=== PATIENT | female | born 1965 | race Caucasian/White ===

== ENCOUNTER 2016-11-14 19:25 | Observation (INO) ==
[2016-11-14] MEDS ORDERED: Furosemide 40 MG/4 ML VIAL IVP ONE (20:47)
--- NOTE | 2016-11-14 20:54 | Emergency Department Note ---
Disposition Clinical Impression: Hypokalemia Acute exacerbation of CHF (congestive heart failure) Qualifiers: Congestive heart failure type: unspecified congestive heart failure type Qualified Code(s): I50.9 - Heart failure, unspecified Disposition: Admitted As Inpatient Condition: Fair Referrals: Iliana Almaguer MD [Primary Care Provider] - Forms: ED Satisfaction Letter Time of Disposition: 22:51 SOB HPI - General Chief Complaint: ED Shortness of Breath/Dyspnea Stated Complaint: ascites Time Seen by Provider: 11/14/16 19:40 Source: patient Limitations: no limitations Nursing Notes Reviewed: Yes Vital Signs Reviewed: Yes - History of Present Illness 51-year-old female with history of CHF, previously on oxygen but has not been able to get lately. Persistence with shortness of breath, abdominal swelling, bilateral lower extremity swelling. Patient's abdominal swelling and lower extremity swelling has been worse. Patient has been taking Lasix 40 mg 3 times a day with resolution of her symptoms. In approximately 15-20 pounds last few days, most with on her abdomen. She denies abdominal pain or chest pain but feels short of breath with minimal exertion, she has orthopnea and her and exertional dyspnea denies fevers chills or unilateral swelling. Pt Subjective Complaint: shortness of breath Onset (ago): week(s) (3) Severity: moderate Worsens with: lying flat, exertion, movement, coughing Known history of: congestive heart failure Associated symptoms: Reports: orthopnea. Denies: pain with inspiration, sputum production Treatment prior to arrival: none Cough present: Yes Cough Description: Voluntary Sputum Amount: None - Related Data Home Medications Medication Instructions Recorded Confirmed Aspirin Enteric Coated [Aspirin EC] 81 mg PO DAILY 06/30/15 08/21/16 Atorvastatin Calcium [Lipitor] 80 mg PO DAILY 06/30/15 08/21/16 Budesonide/Formoterol 160/4.5 2 puff IH BID 06/30/15 08/21/16 [Symbicort] Fluticasone Propionate Nasal 1 spray NS DAILY 06/30/15 08/21/16 [Flonase] Insulin ASPART [NovoLOG] 20 unit SQ TIDWM 06/30/15 08/21/16 Insulin DETEMIR [Levemir] 120 unit SQ BID 06/30/15 08/21/16 Montelukast [Singulair] 10 mg PO DAILY 06/30/15 08/21/16 Pregabalin [Lyrica] 100 mg PO TID 06/30/15 08/21/16 Tiotropium [Spiriva] 18 mcg IH DAILY 06/30/15 08/21/16 Citalopram [CeleXA] 20 mg PO DAILY 08/09/15 08/21/16 Nitroglycerin [Nitrostat] 0.4 mg SL AD PRN 08/09/15 08/21/16 Acetaminophen [Tylenol Arthritis] 650 mg PO Q6H PRN 04/17/16 08/21/16 Albuterol Neb [Proventil Neb] 2.5 mg IH TID 04/17/16 08/21/16 Albuterol Sulfate [Albuterol 2 puff IH Q4H PRN 04/17/16 08/21/16 Inhaler] Loratadine [Claritin] 10 mg PO DAILY 04/17/16 08/21/16 Metformin HCl [Metformin HCl ER] 1,000 mg PO BID 04/17/16 08/21/16 Metoprolol [Lopressor] 25 mg PO BID 04/17/16 08/21/16 Oxygen 3 l NS AD 04/17/16 08/21/16 Pantoprazole Sodium [Protonix] 40 mg PO DAILY 04/17/16 08/21/16 Potassium Chloride [K-Tab ER] 20 meq PO DAILY 04/17/16 08/21/16 Lipase/Protease/Amylase [Rober Hernández 0.5 each PO TID MDD With Snacks 08/21/1608/27 40,000 Units Capsule] Lipase/Protease/Amylase [Rober Hernández 1 each PO TIDWM 08/21/16 08/21/16 40,000 Units Capsule] Losartan Potassium [Cozaar] 50 mg PO DAILY 08/21/16 08/21/16 Oxybutynin Chloride [Ditropan Xl] 10 mg PO DAILY 08/21/16 08/21/16 SUMAtriptan [Imitrex] 50 mg PO AD PRN 08/21/16 08/21/16 Previous Rx's Medication Instructions Recorded Ondansetron ODT [Zofran ODT] 4 mg SL Q6HR PRN #20 tab.rapdis 05/29/16 Azithromycin [Zithromax] 250 mg PO DAILY #4 tablet 10/11/16 Furosemide [Lasix] 40 mg PO DAILY 30 Days 08/22/16 Allergies Allergy/AdvReac Type Severity Reaction Status Date / Time estrogens, conjugated AdvReac Anxiety Verified 08/21/16 12:58 [From Premarin] hydrocodone [From Vicodin] AdvReac Anxiety Verified 08/21/16 12:58 metronidazole [From Flagyl] AdvReac Anxiety Verified 08/21/16 12:58 Tetracycline AdvReac Anxiety Verified 08/21/16 12:58 tramadol [From Ultram] AdvReac Anxiety Verified 08/21/16 12:58 Review of Systems: A 14 point ROS was obtained and was negative except as per below or as documented in the HPI. Constitutional: Denies: fever, chills, weakness, weight change Eyes: Denies: eye pain, eye discharge, vision change ENT: Denies: ear pain, throat pain, hearing loss, epistaxis, congestion, Cardiovascular: Denies: chest pain, palpitations, dyspnea on exertion, edema, syncope Respiratory: dyspnea Denies: cough, , wheezes, hemoptysis, stridor Gastrointestinal: +abdominal pain swelling Denies: , nausea, vomiting. diarrhea , constipation, hematemesis, hematochezia Genitourinary: Denies: urgency, dysuria, frequency, hematuria Musculoskeletal: Denies: back pain, neck pain, arthralgia, myalgia Integumentary: Denies: rash, abrasion, lesions Neurological: Denies: headache, weakness, numbness, paresthesias, confusion, abnormal gait Psychiatric: Denies: anxiety, depression, suicidal thoughts, homicidal thoughts , Endocrine: Denies: fatigue Hematological/Lymphatic: Denies: easy bleeding, easy bruising Allergic/Immunologic: Denies: facial swelling, urticaria All systems ED: reviewed and negative except as stated. Past Medical History - Past Medical History Attestation: Yes The following information was validated with the patient. 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 - Social History Smoking Status: Current every day smoker Smokeless Tobacco Status: No Alcohol use: Reports: none Drug use: Reports: none Physical Exam General: alert and oriented, in NAD, appears stated age, is pleasant and cooperative to exam Head: NCAT, no lesions Eyes: sclera anicteric, conjunctiva normal, PERRLA bilaterally, EOMI Bilaterally Ears: normal inspection, external ear wnl Nose: nasal septum nondeviated, sinuses nontender Throat: good dentition, mucous membranes moist Neck: no lymphadenopathy, trachea midline no deviation, no JVD Resp: Bilateral rales appreciated bases in the midlung yip. CV: RRR, normal S1 and S2, no m/g/r, Pulses +2 Rad, +2 DP/PT Abdomen: Moderate to severe distention in the abdomen. no hepatosplenomegaly, no hernias, Negative Rovsing's sign, Negative An's sign Back: normal inspection, no tenderness to palpation, Negative CVA tenderness bilaterally Neuro: A&O3, CN II-XII grossly intact bilaterally, no motor or sensory deficits bilaterally, gait normal, GCS 15 [id number] Ext: normal inspection, symmetric Active and Passive ROM UE and LE bilaterally, +3. Edema bilaterally Psych: normal mood, normal affect Skin: No rashes, skin warm, dry, intact - General Limitations: no limitations General appearance: alert, in no apparent distress Course Course Narrative: 51-year-old with history of CHF appears to be in anasarca, bilateral lower extremity pedal edema, diffuse rails, we will diuresis with IV Lasix, basic lab work. - Reevaluation(s) Reevaluation #1: Patient with hypokalemia, and CHF exacerbation. This in service for diuresis, Time: 22:50 Vital Signs Temperature 98.2 F 11/14/16 20:28 Pulse Rate 75 11/14/16 20:28 Respiratory Rate 20 11/14/16 20:28 Blood Pressure 139/79 11/14/16 20:28 O2 Sat by Pulse Oximetry 88 L 11/14/16 20:28 Temperature 98.2 F 11/14/16 20:28 Pulse Rate 75 11/14/16 20:28 Respiratory Rate 20 11/14/16 20:28 Blood Pressure 139/79 11/14/16 20:28 O2 Sat by Pulse Oximetry 96 11/14/16 20:35 Oxygen Delivery Oxygen Delivery Room Air Shortness of Breath/Dyspnea - MDM Narrative Medical decision making narrative: 51-year-old female with CHF exacerbation, requiring oxygen in the emergency department, admitted to medicine service for diuresis, and further workup - Differential Diagnosis Likely: acute exacerbation of chronic obstructive airways disease, congestive heart failure, pulmonary embolism - Medical Records Medical records reviewed: Yes I reviewed the patient's medical records. - Lab Data Lab results reviewed: Yes I reviewed the patient's lab results. Result diagrams: 11/14/16 21:23 11/14/16 21:23 Lab Results 11/14/16 11/14/16 11/14/16 Range/Units 21:23 21:23 21:23 WBC 10.5 (4.3-11.1) K/mcL RBC 5.95 H (3.82-4.97) M/mcL Hgb 14.4 (11.5-15.4) g/dL Hct 46.2 H (35.3-44.9) % MCV 77.6 L (83.0-100.0) fL MCH 24.2 L (28.0-33.3) pg MCHC 31.2 L (31.6-35.5) g/dL RDW 20.6 H (11.5-14.5) % Plt Count 231 (140-400) K/mcL MPV 11.1 (9.4-12.4) fL Immature Gran % 0.5 (0-4) % Seg Neutrophils % 77.9 % Lymphocytes % 11.7 % Monocytes % 8.5 % Eosinophils % 0.9 % Basophils % 0.5 % Neutrophils # 8.2 (1.6-8.9) K/mcL Lymphocytes # 1.2 (0.6-4.6) K/mcL Monocytes # 0.9 (0.0-1.3) K/mcL Eosinophils # 0.1 (0.0-0.6) K/mcL Basophils # 0.1 (0.0-0.2) K/mcL Nucleated RBCs/100 WBC 0.2 H (0) /100 WBC Immature Plt Fraction 7.6 H (1.1-6.1) % Sodium 138 (136-145) mEq/L Potassium 2.8 L (3.5-4.5) mEq/L Chloride 98 (98-109) mEq/L Carbon Dioxide 31 H (19-29) mEq/L BUN 15 (7-20) mg/dL Creatinine 0.77 (0.57-1.11) mg/dL Est GFR ( Amer) > 60 (> 60) Est GFR (Non-Af Amer) > 60 (> 60) BUN/Creatinine Ratio 19 (6-26) Glucose 213 H (70-99) mg/dL Calculated Osmolality 293 (280-300) Calcium 8.3 L (8.6-10.8) mg/dL Total Bilirubin (0.2-1.2) mg/dL Direct Bilirubin (0.0-0.5) mg/dL Indirect Bilirubin (0.0-1.2) mg/dL AST (5-34) Units/L ALT (0-55) Units/L Alkaline Phosphatase (38-126) Units/L Troponin I 0.00 (0-0.03) ng/mL B-Natriuretic Peptide (0-100) pg/mL Serum Total Protein (6.0-8.3) g/dL Albumin (3.5-5.0) g/dL Globulin (2.4-3.5) g/dL Albumin/Globulin Ratio (1.1-2.2) Lipase (8-78) Units/L Urine Color (Yellow) Urine Clarity (Clear) Urine pH (5.0-8.0) pH Units Ur Specific [place] (1.010-1.025) Urine Protein (Neg-Trace) mg/dL Urine Glucose (UA) (Normal) mg/dL Urine Ketones (Negative) mg/dL Urine Blood (Negative) Urine Nitrite (Negative) Urine Bilirubin (Negative) Urine Urobilinogen (Normal) mg/dL Ur Leukocyte Esterase (Negative) Ur Culture Indicated? (NO) 11/14/16 11/14/16 11/14/16 Range/Units 21:23 21:23 22:01 WBC (4.3-11.1) K/mcL RBC (3.82-4.97) M/mcL Hgb (11.5-15.4) g/dL Hct (35.3-44.9) % MCV (83.0-100.0) fL MCH (28.0-33.3) pg MCHC (31.6-35.5) g/dL RDW (11.5-14.5) % Plt Count (140-400) K/mcL MPV (9.4-12.4) fL Immature Gran % (0-4) % Seg Neutrophils % % Lymphocytes % % Monocytes % % Eosinophils % % Basophils % % Neutrophils # (1.6-8.9) K/mcL Lymphocytes # (0.6-4.6) K/mcL Monocytes # (0.0-1.3) K/mcL Eosinophils # (0.0-0.6) K/mcL Basophils # (0.0-0.2) K/mcL Nucleated RBCs/100 WBC (0) /100 WBC Immature Plt Fraction (1.1-6.1) % Sodium (136-145) mEq/L Potassium (3.5-4.5) mEq/L Chloride (98-109) mEq/L Carbon Dioxide (19-29) mEq/L BUN (7-20) mg/dL Creatinine (0.57-1.11) mg/dL Est GFR ( Amer) (> 60) Est GFR (Non-Af Amer) (> 60) BUN/Creatinine Ratio (6-26) Glucose (70-99) mg/dL Calculated Osmolality (280-300) Calcium (8.6-10.8) mg/dL Total Bilirubin 1.2 (0.2-1.2) mg/dL Direct Bilirubin 0.6 H (0.0-0.5) mg/dL Indirect Bilirubin 0.6 (0.0-1.2) mg/dL AST 11 (5-34) Units/L ALT 7 (0-55) Units/L Alkaline Phosphatase 127 H (38-126) Units/L Troponin I (0-0.03) ng/mL B-Natriuretic Peptide 537 H (0-100) pg/mL Serum Total Protein 5.9 L (6.0-8.3) g/dL Albumin 2.8 L (3.5-5.0) g/dL Globulin 3.1 (2.4-3.5) g/dL Albumin/Globulin Ratio 0.9 L (1.1-2.2) Lipase < 4 L (8-78) Units/L Urine Color Yellow (Yellow) Urine Clarity Clear (Clear) Urine pH 6.5 (5.0-8.0) pH Units Ur Specific [place] 1.007 L (1.010-1.025) Urine Protein Negative (Neg-Trace) mg/dL Urine Glucose (UA) Normal (Normal) mg/dL Urine Ketones Negative (Negative) mg/dL Urine Blood Negative (Negative) Urine Nitrite Negative (Negative) Urine Bilirubin Negative (Negative) Urine Urobilinogen Normal (Normal) mg/dL Ur Leukocyte Esterase Negative (Negative) Ur Culture Indicated? NO (NO) - Radiology Data Radiology results reviewed: Yes I reviewed the patient's radiology results. Chest X-Ray 11/14/16 20:47 IMPRESSION: Chronic right basilar airspace disease, likely related to scarring, with persistent trace right-sided pleural effusion versus pleural thickening. Interval clearing with new superimposed pneumonia not excluded. D/ / Lalitha Elena MD / Lalitha Elena MD Interpreting Provider: Lalitha Elena MD - EKG Data EKG attestation: Yes I reviewed and interpreted this EKG. EKG shows normal: Reports: sinus rhythm (6 9 bpm MO 181 QRS 94 QTc 443) Rate: Reports: normal Rhythm: Reports: NSR T wave inversions noted in: Reports: II, III Interpretation: Reports: no acute changes (No changes from previous EKG in August 2016) - Core Measures AMI Core Measures Followed: No Measure Exclusions: not indicated
[2016-11-14 21:39] LABS: Basophils # 0.1 K/mcL (0.0-0.2); Basophils % 0.5 %; Eosinophils # 0.1 K/mcL (0.0-0.6); Eosinophils % 0.9 %; Hematocrit 46.2 % (35.3-44.9); Hemoglobin 14.4 g/dL (11.5-15.4); Immature Granulocytes % 0.5 % (0-4); Immature Platelets 7.6 % (1.1-6.1); Lymphocytes # 1.2 K/mcL (0.6-4.6); Lymphocytes % 11.7 %; Mean Corpuscular HGB Conc 31.2 g/dL (31.6-35.5); Mean Corpuscular Hemoglobin 24.2 pg (28.0-33.3); Mean Corpuscular Volume 77.6 fL (83.0-100.0); Mean Platelet Volume 11.1 fL (9.4-12.4); Monocytes # 0.9 K/mcL (0.0-1.3); Monocytes % 8.5 %; Neutrophils # 8.2 K/mcL (1.6-8.9); Nucleated Red Blood Cells 0.2 /100 WBC (0); Platelet Count 231 K/mcL (140-400); Red Blood Count 5.95 M/mcL (3.82-4.97); Red Cell Distribution Width 20.6 % (11.5-14.5); Segmented Neutrophils % 77.9 %
[2016-11-14 21:49] LABS: BUN/Creatinine Ratio 19 (6-26); Blood Urea Nitrogen 15 mg/dL (7-20); Calcium 8.3 mg/dL (8.6-10.8); Carbon Dioxide 31 mEq/L (19-29); Chloride 98 mEq/L (98-109); Glucose 213 mg/dL (70-99); Osmolality,Calculated 293 (280-300); Potassium 2.8 mEq/L (3.5-4.5); Sodium 138 mEq/L (136-145); eGFR For African Americans > 60 (> 60); eGFR For Non-African Americans > 60 (> 60)
[2016-11-14 21:52] LABS: Alanine Aminotransferase 7 Units/L (0-55); Albumin 2.8 g/dL (3.5-5.0); Albumin/Globulin Ratio 0.9 (1.1-2.2); Alkaline Phosphatase 127 Units/L (38-126); Aspartate Amino Transferase 11 Units/L (5-34); Bilirubin,Direct 0.6 mg/dL (0.0-0.5); Bilirubin,Indirect 0.6 mg/dL (0.0-1.2); Bilirubin,Total 1.2 mg/dL (0.2-1.2); Globulin 3.1 g/dL (2.4-3.5); Total Protein 5.9 g/dL (6.0-8.3)
[2016-11-14 21:53] LABS: Lipase < 4 Units/L (8-78)
[2016-11-14 22:13] LABS: Bilirubin,Urine Negative (Negative); Blood,Urine Negative (Negative); Clarity,Urine Clear (Clear); Color,Urine Yellow (Yellow); Glucose,Urine (UA) Normal (Normal); Ketones,Urine Negative (Negative); Leukocyte Esterase,Urine Negative (Negative); Nitrite,Urine Negative (Negative); PH,Urine 6.5 pH Units (5.0-8.0); Protein,Urine Negative (Neg-Trace); Specific Gravity,Urine 1.007 (1.010-1.025); Urobilinogen,Urine Normal (Normal)
--- NOTE | 2016-11-14 22:40 | Emergency Department Note ---
Disposition Clinical Impression: Acute exacerbation of CHF (congestive heart failure), Hypokalemia Disposition: Admitted As Inpatient Condition: Fair General Adult HPI - General Chief complaint: ED Shortness of Breath/Dyspnea Stated complaint: abd swelling Source: patient Limitations: no limitations - History of Present Illness Pain Scale: 8 - Related Data Home Medications Medication Instructions Recorded Confirmed Aspirin Enteric Coated [Aspirin EC] 81 mg PO DAILY 06/30/15 11/14/16 Atorvastatin Calcium [Lipitor] 80 mg PO DAILY 06/30/15 11/14/16 Budesonide/Formoterol 160/4.5 2 puff IH BID 06/30/15 11/14/16 [Symbicort] Fluticasone Propionate Nasal 50 mcg NS DAILY 06/30/15 11/14/16 [Flonase] Insulin ASPART [NovoLOG] 20 unit SQ TIDWM 06/30/15 11/14/16 Insulin DETEMIR [Levemir] 120 unit SQ BID 06/30/15 11/14/16 Montelukast [Singulair] 10 mg PO DAILY 06/30/15 11/14/16 Pregabalin [Lyrica] 100 mg PO TID 06/30/15 11/14/16 Tiotropium [Spiriva] 18 mcg IH DAILY 06/30/15 11/14/16 Citalopram [CeleXA] 40 mg PO DAILY 08/09/15 11/14/16 Albuterol Neb [Proventil Neb] 2.5 mg IH TID 04/17/16 11/14/16 Albuterol Sulfate [Albuterol 2 puff IH Q4H PRN 04/17/16 11/14/16 Inhaler] Loratadine [Claritin] 10 mg PO DAILY 04/17/16 11/14/16 Metformin HCl [Metformin HCl ER] 1,000 mg PO BID 04/17/16 11/14/16 Metoprolol [Lopressor] 25 mg PO BID 04/17/16 11/14/16 Oxygen 3 l NS AD 04/17/16 11/14/16 Pantoprazole Sodium [Protonix] 40 mg PO DAILY 04/17/16 11/14/16 Potassium Chloride [K-Tab ER] 20 meq PO DAILY 04/17/16 11/14/16 Lipase/Protease/Amylase [Zenpep Dr 1 cap PO TIDWM 08/21/16 11/14/16 40,000 Units Capsule] Losartan Potassium [Cozaar] 50 mg PO DAILY 08/21/16 11/14/16 Oxybutynin Chloride [Ditropan Xl] 10 mg PO DAILY 08/21/16 11/14/16 SUMAtriptan [Imitrex] 50 mg PO AD PRN 08/21/16 11/14/16 Furosemide [Lasix] 20 mg PO BID 11/14/16 11/14/16 Ipratropium/Albuterol Neb [Duoneb] 3 ml IH Q6HR 11/14/16 11/14/16 Isosorbide MONOnitrate (24 HR) 30 mg PO DAILY 11/14/16 11/14/16 [Imdur] Previous Rx's Medication Instructions Recorded Azithromycin [Zithromax] 250 mg PO DAILY #4 tablet 08/22/16 Allergies Allergy/AdvReac Type Severity Reaction Status Date / Time amylase [From Creon] AdvReac Diarrhea Verified 11/14/16 23:28 estrogens, conjugated AdvReac Anxiety Verified 08/21/16 12:58 [From Premarin] hydrocodone [From Vicodin] AdvReac Anxiety Verified 08/21/16 12:58 lipase [From Creon] AdvReac Diarrhea Verified 11/14/16 23:28 metronidazole [From Flagyl] AdvReac See Verified 11/14/16 23:28 Comments protease [From Creon] AdvReac Diarrhea Verified 11/14/16 23:28 Tetracycline AdvReac Anxiety Verified 08/21/16 12:58 tramadol [From Ultram] AdvReac Muscle Pain Verified 11/14/16 23:28 Past Medical History - Past Medical History Medical history: Reports: arthritis, asthma, CHF, COPD, diabetes, hyperlipidemia , hypertension, kidney stones, other Surgical history: Reports: cholecystectomy, other 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 Frost. The patient presents with shortness of breath and swelling up with fluid. She notes her legs are swollen. She also notes that her belly is swelling up. On examination she has got peripheral edema. She has got edema of the torso. She has got rales in her lungs. This lady has anasarca with pulmonary edema. She is already on huge doses of Lasix at home and still building up fluid. Furthermore she is hypokalemic. I will be we just send her home with more Lasix, especially when she does not have oxygen at home and clearly has an oxygen requirement. We will admit her to the hospital. Time: 22:39 Vital Signs Temperature 98.2 F 11/14/16 20:28 Pulse Rate 75 11/14/16 20:28 Respiratory Rate 20 11/14/16 20:28 Blood Pressure 139/79 11/14/16 20:28 O2 Sat by Pulse Oximetry 88 L 11/14/16 20:28 Temperature 98.1 F 11/16/16 07:45 Pulse Rate 75 11/16/16 07:45 Respiratory Rate 16 11/16/16 07:45 Blood Pressure 111/72 11/16/16 07:45 O2 Sat by Pulse Oximetry 94 L 11/16/16 07:45 Oxygen Delivery Oxygen Delivery Nasal Cannula Medical Decision Making - Lab Data Result diagrams: 11/16/16 05:24 11/16/16 05:24 Lab Results 11/14/16 11/14/16 11/14/16 Range/Units 21:23 21:23 21:23 WBC 10.5 (4.3-11.1) K/mcL RBC 5.95 H (3.82-4.97) M/mcL Hgb 14.4 (11.5-15.4) g/dL Hct 46.2 H (35.3-44.9) % MCV 77.6 L (83.0-100.0) fL MCH 24.2 L (28.0-33.3) pg MCHC 31.2 L (31.6-35.5) g/dL RDW 20.6 H (11.5-14.5) % Plt Count 231 (140-400) K/mcL MPV 11.1 (9.4-12.4) fL Immature Gran % 0.5 (0-4) % Seg Neutrophils % 77.9 % Lymphocytes % 11.7 % Monocytes % 8.5 % Eosinophils % 0.9 % Basophils % 0.5 % Neutrophils # 8.2 (1.6-8.9) K/mcL Lymphocytes # 1.2 (0.6-4.6) K/mcL Monocytes # 0.9 (0.0-1.3) K/mcL Eosinophils # 0.1 (0.0-0.6) K/mcL Basophils # 0.1 (0.0-0.2) K/mcL Nucleated RBCs/100 WBC 0.2 H (0) /100 WBC Immature Plt Fraction 7.6 H (1.1-6.1) % Sodium 138 (136-145) mEq/L Potassium 2.8 L (3.5-4.5) mEq/L Chloride 98 (98-109) mEq/L Carbon Dioxide 31 H (19-29) mEq/L BUN 15 (7-20) mg/dL Creatinine 0.77 (0.57-1.11) mg/dL Est GFR ( Amer) > 60 (> 60) Est GFR (Non-Af Amer) > 60 (> 60) BUN/Creatinine Ratio 19 (6-26) Glucose 213 H (70-99) mg/dL Calculated Osmolality 293 (280-300) Calcium 8.3 L (8.6-10.8) mg/dL Total Bilirubin (0.2-1.2) mg/dL Direct Bilirubin (0.0-0.5) mg/dL Indirect Bilirubin (0.0-1.2) mg/dL AST (5-34) Units/L ALT (0-55) Units/L Alkaline Phosphatase (38-126) Units/L Troponin I 0.00 (0-0.03) ng/mL B-Natriuretic Peptide (0-100) pg/mL Serum Total Protein (6.0-8.3) g/dL Albumin (3.5-5.0) g/dL Globulin (2.4-3.5) g/dL Albumin/Globulin Ratio (1.1-2.2) Lipase (8-78) Units/L Urine Color (Yellow) Urine Clarity (Clear) Urine pH (5.0-8.0) pH Units Ur Specific [place] (1.010-1.025) Urine Protein (Neg-Trace) mg/dL Urine Glucose (UA) (Normal) mg/dL Urine Ketones (Negative) mg/dL Urine Blood (Negative) Urine Nitrite (Negative) Urine Bilirubin (Negative) Urine Urobilinogen (Normal) mg/dL Ur Leukocyte Esterase (Negative) Ur Culture Indicated? (NO) 11/14/16 11/14/16 11/14/16 Range/Units 21:23 21:23 22:01 WBC (4.3-11.1) K/mcL RBC (3.82-4.97) M/mcL Hgb (11.5-15.4) g/dL Hct (35.3-44.9) % MCV (83.0-100.0) fL MCH (28.0-33.3) pg MCHC (31.6-35.5) g/dL RDW (11.5-14.5) % Plt Count (140-400) K/mcL MPV (9.4-12.4) fL Immature Gran % (0-4) % Seg Neutrophils % % Lymphocytes % % Monocytes % % Eosinophils % % Basophils % % Neutrophils # (1.6-8.9) K/mcL Lymphocytes # (0.6-4.6) K/mcL Monocytes # (0.0-1.3) K/mcL Eosinophils # (0.0-0.6) K/mcL Basophils # (0.0-0.2) K/mcL Nucleated RBCs/100 WBC (0) /100 WBC Immature Plt Fraction (1.1-6.1) % Sodium (136-145) mEq/L Potassium (3.5-4.5) mEq/L Chloride (98-109) mEq/L Carbon Dioxide (19-29) mEq/L BUN (7-20) mg/dL Creatinine (0.57-1.11) mg/dL Est GFR ( Amer) (> 60) Est GFR (Non-Af Amer) (> 60) BUN/Creatinine Ratio (6-26) Glucose (70-99) mg/dL Calculated Osmolality (280-300) Calcium (8.6-10.8) mg/dL Total Bilirubin 1.2 (0.2-1.2) mg/dL Direct Bilirubin 0.6 H (0.0-0.5) mg/dL Indirect Bilirubin 0.6 (0.0-1.2) mg/dL AST 11 (5-34) Units/L ALT 7 (0-55) Units/L Alkaline Phosphatase 127 H (38-126) Units/L Troponin I (0-0.03) ng/mL B-Natriuretic Peptide 537 H (0-100) pg/mL Serum Total Protein 5.9 L (6.0-8.3) g/dL Albumin 2.8 L (3.5-5.0) g/dL Globulin 3.1 (2.4-3.5) g/dL Albumin/Globulin Ratio 0.9 L (1.1-2.2) Lipase < 4 L (8-78) Units/L Urine Color Yellow (Yellow) Urine Clarity Clear (Clear) Urine pH 6.5 (5.0-8.0) pH Units Ur Specific [place] 1.007 L (1.010-1.025) Urine Protein Negative (Neg-Trace) mg/dL Urine Glucose (UA) Normal (Normal) mg/dL Urine Ketones Negative (Negative) mg/dL Urine Blood Negative (Negative) Urine Nitrite Negative (Negative) Urine Bilirubin Negative (Negative) Urine Urobilinogen Normal (Normal) mg/dL Ur Leukocyte Esterase Negative (Negative) Ur Culture Indicated? NO (NO) Attestation Statement - Attestation Attestation: I, Dr. Cagle, examined this patient [id number] and my medical decision- making was reviewed with Dr. Frost, Resident Physician. I agree with the documented findings, disposition and treatment plan as described except to the extent set forth below. Please see my progress notes for details.
[2016-11-14] MEDS ORDERED: Ipratropium/Albuterol Neb 3 ML IH PRN (23:19)
--- NOTE | 2016-11-14 23:26 | Internal Med History&Physical ---
Date of Encounter: 11/14/16 Time of Encounter: 23:24 Assessment and Plan (1) Acute exacerbation of CHF (congestive heart failure) Current visit: Yes Status: Acute Acute on chronic respiratory failure secondary to Acute on chronic diastolic CHF exacerbation Increase Lasix IV 60 mg twice a day, may benefit from Zaroxolyn as an outpatient as the patient has been taking Lasix 40 mg 3 times a day Strict I's and O and daily weight (2) Cellulitis Current visit: Yes Status: Acute Acute Abdominal cellulitis Start Ancef, consider switching to vancomycin if not improving Qualifiers: Site of cellulitis of trunk: abdominal wall Qualified Code(s): L03.311 - Cellulitis of abdominal wall (3) Hypokalemia Current visit: Yes Status: Acute Replete as needed (4) COPD (chronic obstructive pulmonary disease) Current visit: No Status: Acute Oxygen dependent Continue inhalers and oxygen Qualifiers: COPD type: emphysema Emphysema type: unspecified Qualified Code(s): J43.9 - Emphysema, unspecified (5) Tobacco abuse Current visit: No Status: Acute Smoking cessation counseling given for 5 minutes (6) Diabetes mellitus Current visit: No Status: Chronic Continue insulin with a sliding scale The patient will be admitted for observation, omeprazole for GI prophylaxis and subcutaneous Heparin for DVT prophylaxis. She is a full code. Time spent on this admission 40 minutes. 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 Alanis is a 51 year old female with a past medical history of COPD not oxygen dependent, diastolic CHF who was discharged from this hospital on August. She comes complaining of recurrent shortness of breath, her primary care physician increased her dose of Lasix up to 40 mg 3 times a day but her legs have become more swollen, she says she has gained about 40 pounds in the past couple months, was treated for bronchitis about a week ago with amoxicillin , complains of a dry cough, the chest x-ray shows chronic right base airspace disease with a right pleural effusion. Denies any fevers but her saturation of oxygen dropped down to 88%, her white blood cell count is 10.5. Denies any fevers or any sick contacts. Her abdomen is very red and is tender. Denies any other complaints Past Med Surg Social Fam HX - Past Medical History Medical history: arthritis, asthma, CHF (Diastolic), COPD ( oxygen dependent), diabetes (Insulin-dependent), hyperlipidemia, hypertension, kidney stones, other (Tobacco use, polycythemia) Psychiatric history: depression - Past Surgical History Surgical History: cholecystectomy, other - Social History Smoking Status: Current every day smoker Packs per day: One quarter Smokeless Tobacco Status: No Alcohol use: none Drug use: none - Family History Father Family Member Ethnicity: Non- Living Status: Still Living Hx Family Cardiac Disorders: Yes (CABG x3, HTN) Hx Family Respiratory Disorders: Yes (COPD) Hx Family Cancer: No Hx Family GI Disorders: No Hx Family Endocrine Disorder: Yes Hx Family Neuromuscular Disorders: No Hx Family Neurologic Disorders: No Hx Family HEENT Disorders: No Hx Family Autoimmune Disorders: No Mother Family Member Ethnicity: Non- Living Status: Still Living Hx Family Cardiac Disorders: Yes Hx Family Respiratory Disorders: No Hx Family Cancer: Yes Hx Family GI Disorders: No Hx Family Endocrine Disorder: Yes Hx Family Neuromuscular Disorders: No Hx Family Neurologic Disorders: No Hx Family HEENT Disorders: No Hx Family Autoimmune Disorders: No - Additional Family History Additional family history: Mother and father with diabetes and father with CABG Internal Medicine - H&P: Meds Aspirin Enteric Coated [Aspirin EC] 81 mg PO DAILY 06/30/15 [History] Atorvastatin Calcium [Lipitor] 80 mg PO DAILY 06/30/15 [History] Budesonide/Formoterol 160/4.5 [Symbicort] 2 puff IH BID 06/30/15 [History] Fluticasone Propionate Nasal [Flonase] 50 mcg NS DAILY 06/30/15 [History] Insulin ASPART [NovoLOG] 20 unit SQ TIDWM 06/30/15 [History] Insulin DETEMIR [Levemir] 120 unit SQ BID 06/30/15 [History] Montelukast [Singulair] 10 mg PO DAILY 06/30/15 [History] Pregabalin [Lyrica] 100 mg PO TID 06/30/15 [History] Tiotropium [Spiriva] 18 mcg IH DAILY 06/30/15 [History] Citalopram [CeleXA] 40 mg PO DAILY 08/09/15 [History] Albuterol Neb [Proventil Neb] 2.5 mg IH TID 04/17/16 [History] Albuterol Sulfate [Albuterol Inhaler] 2 puff IH Q4H PRN 04/17/16 [History] Loratadine [Claritin] 10 mg PO DAILY 04/17/16 [History] Metformin HCl [Metformin HCl ER] 1,000 mg PO BID 04/17/16 [History] Metoprolol [Lopressor] 25 mg PO BID 04/17/16 [History] Oxygen 3 l NS AD 04/17/16 [History] Pantoprazole Sodium [Protonix] 40 mg PO DAILY 04/17/16 [History] Potassium Chloride [K-Tab ER] 20 meq PO DAILY 04/17/16 [History] Lipase/Protease/Amylase [Zenpep Dr 40,000 Units Capsule] 1 cap PO TIDWM [History] Losartan Potassium [Cozaar] 50 mg PO DAILY 08/21/16 [History] Oxybutynin Chloride [Ditropan Xl] 10 mg PO DAILY 08/21/16 [History] SUMAtriptan [Imitrex] 50 mg PO AD PRN 08/21/16 [History] Azithromycin [Zithromax] 250 mg PO DAILY #4 tablet 08/22/16 [Rx] Furosemide [Lasix] 20 mg PO BID 11/14/16 [History] Ipratropium/Albuterol Neb [Duoneb] 3 ml IH Q6HR 11/14/16 [History] Isosorbide MONOnitrate (24 HR) [Imdur] 30 mg PO DAILY 11/14/16 [History] Allergies amylase [From Creon] Adverse Reaction (Verified 11/14/16 23:28) Diarrhea estrogens, conjugated [From Premarin] Adverse Reaction (Verified 08/21/16 12:58) Anxiety hydrocodone [From Vicodin] Adverse Reaction (Verified 08/21/16 12:58) Anxiety lipase [From Creon] Adverse Reaction (Verified 11/14/16 23:28) Diarrhea metronidazole [From Flagyl] Adverse Reaction (Verified 11/14/16 23:28) See Comments YEAST INFECTION protease [From Creon] Adverse Reaction (Verified 11/14/16 23:28) Diarrhea Tetracycline Adverse Reaction (Verified 08/21/16 12:58) Anxiety tramadol [From Ultram] Adverse Reaction (Verified 11/14/16 23:28) Muscle Pain All Systems PM: A 10-system review of systems was performed and is negative for pertinent findings except as documented above in the HPI. Review of systems: Denies any chest pain, no dysuria, no diarrhea. Other systems out of the 10 reviewed were negative - Constitutional Vitals: Temp Pulse Resp BP Pulse Ox 98.2 F 75 20 139/79 96 11/14/16 20:28 11/14/16 20:28 11/14/16 20:28 11/14/16 20:28 11/14/16 20:35 General appearance: Present: A&O X 3 - Head Head exam: Present: atraumatic, normocephalic - Eye Eye exam: Present: PERRL, conjuntiva pink, sclera anicteric Pupils: Present: PERRL - Neck Neck exam general surgery: Present: supple, trachea midline. Absent: lymphadenopathy - Respiratory Respiratory exam: Present: CTAB. Absent: accessory muscle use, rales, rhonchi, wheezes Additional comments: Bibasilar crackles more pronounced on the right - Cardiovascular Cardiovascular exam: Present: RRR, +S1, +S2. Absent: diastolic murmur, gallop, rubs, systolic murmur - GI/Abdominal GI/Abdominal exam: Present: distended (Severe abdominal distention with erythema in the entire abdomen), normal bowel sounds, soft, no peritoneal signs. Absent: tenderness - Extremities Exam Extremities exam: Present: warm, radial pulses palpable and symetrical. Absent : calf tenderness, cyanotic, pedal edema Additional comments: +3 pitting edema in both lower extremities, erythema in both lower extremities - Neurological Exam Neurological exam: Present: CN II-XII intact, oriented X3, no focal deficits. Absent: pronater drift, facial droop, speech deficit - Skin Skin exam: Present: dry, intact Internal Med - H&P Results - Labs CBC & Chem 7: 11/14/16 21:23 11/14/16 21:23
[2016-11-14] MEDS ORDERED: Ondansetron 4 MG/2 ML VIAL IVP PRN (23:35)
[2016-11-14] MEDS ORDERED: Naloxone 0.4 MG/ML INJ IVP PRN (23:35)
[2016-11-14] MEDS ORDERED: *HR* Dextrose 50 % in Water (Syg) 50 ML SYRINGE IVP PRN ×2 (23:35→23:38)
[2016-11-14] MEDS ORDERED: Dextrose Gel 15 GM PO PRN ×4 (23:35→23:38)
[2016-11-14] MEDS ORDERED: D5% in Water 1,000 ML IV PRN ×2 (23:35→23:38)
[2016-11-15] MEDS: ceFAZolin 1,000 MG in D5% in Water (Mini-Bag+) 100 ML IVPB SCH ×4 (00:33→23:49)
[2016-11-15] MEDS: *HR* Heparin 5,000 UNIT/ML VIAL SQ SCH ×4 (00:34→23:49)
[2016-11-15] MEDS: *HR* Morphine 2 MG/ML SYRINGE IV PRN ×7 (00:34→23:50)
[2016-11-15] MEDS: Nicotine 21 MG PATCH.TD24 TD SCH ×2 (00:35→20:07)
[2016-11-15] MEDS: Albuterol 2.5 MG/3 ML NEBULIZER IH SCH ×3 (03:23→18:45)
[2016-11-15] MEDS: Ipratropium/Albuterol Neb 3 ML IH SCH ×5 (03:23→23:35)
[2016-11-15] MEDS: Insulin LISPRO 300 UNITS/3 ML VIAL SQ SCH ×8 (05:39→21:56)
[2016-11-15 06:03] LABS: BUN/Creatinine Ratio 18 (6-26); Blood Urea Nitrogen 13 mg/dL (7-20); Calcium 8.2 mg/dL (8.6-10.8); Carbon Dioxide 30 mEq/L (19-29); Chloride 98 mEq/L (98-109); Glucose 226 mg/dL (70-99); Osmolality,Calculated 293 (280-300); Potassium 3.2 mEq/L (3.5-4.5); Sodium 138 mEq/L (136-145); eGFR For African Americans > 60 (> 60); eGFR For Non-African Americans > 60 (> 60)
[2016-11-15] MEDS: Aspirin Enteric Coated 81 MG Tablet PO SCH (08:42)
[2016-11-15] MEDS: Pregabalin 50 MG CAPSULE PO SCH ×3 (08:42→20:06)
[2016-11-15] MEDS: *HR* Metformin 500 MG TABLET PO SCH ×2 (08:42→16:37)
[2016-11-15] MEDS: Furosemide 40 MG/4 ML VIAL IV SCH ×2 (08:44→16:35)
[2016-11-15] MEDS ORDERED: INSULIN DETEMIR 120 UNIT SQ SCH (09:00)
[2016-11-15] MEDS ORDERED: Insulin DETEMIR 100 UNIT/ML X5UNITS SQ SCH ×2 (09:00)
[2016-11-15 11:22] LABS: Eosinophils % 0.9 %; Hemoglobin 14.3 g/dL (11.5-15.4)
[2016-11-15 11:24] LABS: Basophils % 0.5 %
[2016-11-15 11:53] LABS: Basophils # 0.1 K/mcL (0.0-0.2); Eosinophils # 0.1 K/mcL (0.0-0.6); Immature Granulocytes % 0.4 % (0-4); Lymphocytes # 1.1 K/mcL (0.6-4.6); Lymphocytes % 11.4 %; Mean Corpuscular HGB Conc 30.4 g/dL (31.6-35.5); Mean Corpuscular Hemoglobin 23.8 pg (28.0-33.3); Mean Corpuscular Volume 78.3 fL (83.0-100.0); Mean Platelet Volume 11.7 fL (9.4-12.4); Monocytes # 0.8 K/mcL (0.0-1.3); Monocytes % 8.3 %; Neutrophils # 7.7 K/mcL (1.6-8.9); Platelet Count 215 K/mcL (140-400); Red Cell Distribution Width 20.7 % (11.5-14.5); Segmented Neutrophils % 78.5 %
--- NOTE | 2016-11-15 12:05 | Internal Med Progress Note ---
<Arturo Mirza - Last Filed: 11/15/16 17:02> Date of Encounter: 11/15/16 Time of Encounter: 12:02 - Assessment and plan (1) Acute exacerbation of CHF (congestive heart failure) Current Visit: Yes Status: Acute Assessment and plan: Hx of diastolic CHF Acute CHF exacerbation B/L le pitting edema CXR: pleural effusion Last Echo: 10/18/16: EF 70%, mild LVH, moderate LV diastolic dysfunction, mild right ventricular hypokinesis, moderate pulm hypertension, normal wall motion. IV lasix 60mg BID Strict I/O Daily weight Chest X-Ray 11/14/16 20:47 IMPRESSION: Chronic right basilar airspace disease, likely related to scarring, with persistent trace right-sided pleural effusion versus pleural thickening. Interval clearing with new superimposed pneumonia not excluded. D/ / Lalitha Elena MD / Lalitha Elena MD Interpreting Provider: Lalitha Elena MD Qualifiers: Congestive heart failure type: unspecified congestive heart failure type Qualified Code(s): I50.9 - Heart failure, unspecified (2) Cellulitis Current Visit: Yes Status: Acute Assessment and plan: right sided abdominal cellulitis improving Cefazolin IV Qualifiers: Site of cellulitis of trunk: abdominal wall Qualified Code(s): L03.311 - Cellulitis of abdominal wall (3) COPD (chronic obstructive pulmonary disease) Current Visit: No Status: Chronic Assessment and plan: O2 dependent continue home meds Qualifiers: COPD type: emphysema Emphysema type: unspecified Qualified Code(s): J43.9 - Emphysema, unspecified (4) Tobacco abuse Current Visit: No Status: Chronic Assessment and plan: smoking cessation counseling given (5) Diabetes mellitus Current Visit: No Status: Chronic Qualifiers: Diabetes mellitus type: other specified (including KOJO) Diabetes mellitus complication status: with unspecified complications Diabetes mellitus emt intermediate insulin use: with assisted use Qualified Code(s): E13.8 - Other specified diabetes mellitus with unspecified complications; Z79.4 - skilled nursing ( current) use of insulin (6) DVT prophylaxis Current Visit: No Status: Acute Assessment and plan: pharmacologic anticoagulation heparin subq - Subjective Interval history: Patient seen and examined. Sitting up on the side of the bed. In no acute distress. Coughing, yellowish sputum. Continues to have dyspnea with exertion. Also states she has a rash on her stomach, which is red and tender. Denies cp, n /v/d. - Constitutional Vitals: Temp Pulse Resp BP Pulse Ox 98.1 F 69 16 115/80 93 L 11/15/16 06:53 11/15/16 06:53 11/15/16 06:53 11/15/16 06:53 11/15/16 06:53 General appearance: Present: A&O X 3 - Head Head exam: Present: atraumatic, normocephalic - Eye Eye exam: Present: PERRL, conjuntiva pink, sclera anicteric Pupils: Present: PERRL - Neck Neck exam general surgery: Present: supple, trachea midline. Absent: lymphadenopathy - Respiratory Respiratory exam: Present: prolonged expiratory phase, rhonchi, wheezes. Absent : CTAB, respiratory distress - Cardiovascular Cardiovascular exam: Present: RRR, +S1, +S2 - GI/Abdominal GI/Abdominal exam: Present: normal bowel sounds, tenderness (right side abdominal rash/cellulitis). Absent: firm, guarding - Extremities Exam Extremities exam: Present: pedal edema (pitting, 2+), radial pulses palpable and symetrical. Absent: calf tenderness, cyanotic - Neurological Exam Neurological exam: Present: CN II-XII intact, oriented X3, no focal deficits. Absent: facial droop, speech deficit - Skin Skin exam: Present: dry, intact Internal Medicine: Result - Labs CBC & Chem 7: 11/15/16 10:47 11/15/16 04:45 Labs: BMP 11/15/16 04:45 Sodium 138 Potassium 3.2 L Chloride 98 Carbon Dioxide 30 H BUN 13 Creatinine 0.72 Glucose 226 H Calcium 8.2 L Consult Discharge Plan - Plan Referrals: Paulette D eAnda DO [Resident] - 11/27/16 3:15 pm <Edwardo Minor P - Last Filed: 11/15/16 18:41> Date of Encounter: 11/15/16 - Constitutional Vitals: Temp Pulse Resp BP Pulse Ox 97.8 F 65 16 101/56 94 L 11/15/16 15:22 11/15/16 15:22 11/15/16 15:22 11/15/16 15:22 11/15/16 15:22 Internal Medicine: Result - Labs CBC & Chem 7: 11/15/16 10:47 11/15/16 04:45 Labs: Short CBC 11/15/16 Range/Units 10:47 WBC 9.8 (4.3-11.1) K/mcL Hgb 14.3 (11.5-15.4) g/dL Hct 47.0 H (35.3-44.9) % Plt Count 215 (140-400) K/mcL Neutrophils # 7.7 (1.6-8.9) K/mcL BMP 11/15/16 04:45 Sodium 138 Potassium 3.2 L Chloride 98 Carbon Dioxide 30 H BUN 13 Creatinine 0.72 Glucose 226 H Calcium 8.2 L - Attending Attestation I examined this patient and my medical decision-making was reviewed with the CARTON CATCHER/PA/Advanced Practice Nurse/Resident Physician. I agree with the documented findings, disposition and treatment plan as described except to the extent set forth below.
--- NOTE | 2016-11-15 12:06 | Electrocardiograph Report ---
[facility] Test Date: 2016-11-14 Pat Name: Milena Alanis Department: 105 Room: [id number] Gender: F Office Correspondent: NICK : [id number] Requested By: Antwan Frost Order Number: [id number] Reading MD: Sean Veloz MD Measurements Intervals Kelly Rate: 69 P: 59 [place]: 181 QRS: 101 QRSD: 94 T: 26 QT: 424 QTc: 443 Interpretive Statements SINUS RHYTHM LEFT ATRIAL ENLARGEMENT MARKED RIGHT AXIS DEVIATION INCOMPLETE RIGHT BUNDLE BRANCH BLOCK Electronically Signed On 11-15-16 12:05:31 EST by Sean Veloz MD
[2016-11-15 12:11] LABS: Anisocytosis 1+ (Not Present); Microcytosis Present (Not Present); Polychromasia 1+ (Not Present)
[2016-11-15 12:12] LABS: Poikilocytosis 1+ (Not Present)
[2016-11-15] MEDS ORDERED: Ipratropium/Albuterol Neb 3 ML IH SCH (18:00)
[2016-11-15] MEDS: Budesonide/Formoterol 160/4.5 MDI IH SCH (21:41)
[2016-11-15] MEDS: Insulin DETEMIR 100 UNIT/ML X5UNITS SQ SCH (21:56)
[2016-11-16] MEDS: Fluticasone Propionate Nasal 50 MCG/SPRAY BOTTLE NS SCH ×2 (01:39→07:59)
[2016-11-16] MEDS: *HR* Morphine 2 MG/ML SYRINGE IV PRN ×4 (04:02→21:30)
[2016-11-16] MEDS: Ipratropium/Albuterol Neb 3 ML IH SCH ×4 (05:06→20:33)
[2016-11-16] MEDS: Albuterol 2.5 MG/3 ML NEBULIZER IH SCH ×4 (05:12→23:52)
[2016-11-16 06:00] LABS: Basophils % 0.3 %; Immature Granulocytes % 0.3 % (0-4)
[2016-11-16 06:02] LABS: Eosinophils # 0.1 K/mcL (0.0-0.6); Eosinophils % 1.5 %; Hematocrit 46.4 % (35.3-44.9); Hemoglobin 13.7 g/dL (11.5-15.4); Immature Platelets 7.5 % (1.1-6.1); Lymphocytes # 1.3 K/mcL (0.6-4.6); Lymphocytes % 13.8 %; Mean Corpuscular HGB Conc 29.5 g/dL (31.6-35.5); Mean Corpuscular Hemoglobin 23.5 pg (28.0-33.3); Mean Corpuscular Volume 79.5 fL (83.0-100.0); Mean Platelet Volume 11.4 fL (9.4-12.4); Monocytes # 0.6 K/mcL (0.0-1.3); Monocytes % 6.6 %; Neutrophils # 7.3 K/mcL (1.6-8.9); Platelet Count 222 K/mcL (140-400); Red Blood Count 5.84 M/mcL (3.82-4.97); Red Cell Distribution Width 20.8 % (11.5-14.5); Segmented Neutrophils % 77.5 %
[2016-11-16 06:14] LABS: BUN/Creatinine Ratio 18 (6-26); Blood Urea Nitrogen 14 mg/dL (7-20); Calcium 8.5 mg/dL (8.6-10.8); Carbon Dioxide 33 mEq/L (19-29); Chloride 96 mEq/L (98-109); Glucose 67 mg/dL (70-99); Osmolality,Calculated 285 (280-300); Potassium 4.3 mEq/L (3.5-4.5); Sodium 138 mEq/L (136-145); eGFR For African Americans > 60 (> 60); eGFR For Non-African Americans > 60 (> 60)
[2016-11-16 06:21] LABS: Anisocytosis 1+ (Not Present); Large Platelets Present (Not Present); Platelet Estimate Normal (Normal)
[2016-11-16 06:22] LABS: Hypochromasia Present (Not Present); Microcytosis Present (Not Present); Polychromasia 1+ (Not Present)
[2016-11-16] MEDS: Insulin LISPRO 300 UNITS/3 ML VIAL SQ SCH ×7 (07:50→21:31)
[2016-11-16] MEDS: *HR* Heparin 5,000 UNIT/ML VIAL SQ SCH ×3 (07:55→23:59)
[2016-11-16] MEDS: Furosemide 40 MG/4 ML VIAL IV SCH ×2 (07:55→16:09)
[2016-11-16] MEDS: ceFAZolin 1,000 MG in D5% in Water (Mini-Bag+) 100 ML IVPB SCH ×3 (07:55→23:59)
[2016-11-16] MEDS: Aspirin Enteric Coated 81 MG Tablet PO SCH (07:58)
[2016-11-16] MEDS: Isosorbide MONOnitrate (24 HR) 30 MG TAB.ER.24H PO SCH (07:58)
[2016-11-16] MEDS: Pregabalin 50 MG CAPSULE PO SCH ×3 (07:59→21:29)
[2016-11-16] MEDS: *HR* Metformin 500 MG TABLET PO SCH ×2 (07:59→16:05)
[2016-11-16] MEDS: Insulin DETEMIR 100 UNIT/ML X5UNITS SQ SCH ×2 (09:52→21:31)
[2016-11-16] MEDS: Tiotropium 18 MCG inhalation IH SCH (10:45)
[2016-11-16] MEDS: Budesonide/Formoterol 160/4.5 MDI IH SCH ×2 (10:45→20:33)
[2016-11-16] MEDS ORDERED: Magnesium Sulfate 2 GM in D5% in Water 100 ML IVPB ONE (14:21)
--- NOTE | 2016-11-16 14:27 | Internal Med Progress Note ---
<Arturo Mirza - Last Filed: 11/16/16 15:31> Date of Encounter: 11/16/16 Time of Encounter: 14:24 - Assessment and plan (1) Acute exacerbation of CHF (congestive heart failure) Current Visit: Yes Status: Acute Assessment and plan: Hx of diastolic CHF Acute CHF exacerbation B/L le pitting edema CXR: pleural effusion Last Echo: 10/18/16: EF 70%, mild LVH, moderate LV diastolic dysfunction, mild right ventricular hypokinesis, moderate pulm hypertension, normal wall motion. Continue IV lasix 60mg BID Strict I/O Daily weight Qualifiers: Congestive heart failure type: unspecified congestive heart failure type Qualified Code(s): I50.9 - Heart failure, unspecified (2) Cellulitis Current Visit: Yes Status: Acute Assessment and plan: right sided abdominal cellulitis improving Cefazolin IV Qualifiers: Site of cellulitis of trunk: abdominal wall Qualified Code(s): L03.311 - Cellulitis of abdominal wall (3) COPD (chronic obstructive pulmonary disease) Current Visit: No Status: Chronic Assessment and plan: O2 dependent continue home meds Qualifiers: COPD type: emphysema Emphysema type: unspecified Qualified Code(s): J43.9 - Emphysema, unspecified (4) Hypomagnesemia Current Visit: Yes Status: Acute Assessment and plan: Patient Mg level of 1.4 IV 2gm magnesium sulfate in 5% dextrose given as once time dose. Continue to follow labs (5) Tobacco abuse Current Visit: No Status: Chronic Assessment and plan: smoking cessation counseling given (6) Diabetes mellitus Current Visit: No Status: Chronic Assessment and plan: Was taking long acting levemir 100 units BID and became hypoglycemic with blood sugar of 55. Was given juice and blood sugar increased back within normal range. Spoke to pharmacy about decreasing the levemir. Dose decreased to 50 units BID. No hypoglycemic events today. Blood sugar control much better. Will continue 50 units Levemir BID. Continue sliding scale insulin and monitoring Qualifiers: Diabetes mellitus type: other specified (including KOJO) Diabetes mellitus complication status: with unspecified complications Diabetes mellitus watermaster insulin use: with watermaster use Qualified Code(s): E13.8 - Other specified diabetes mellitus with unspecified complications; Z79.4 - shelter ( current) use of insulin (7) DVT prophylaxis Current Visit: No Status: Acute Assessment and plan: pharmacologic anticoagulation heparin subq - Subjective Interval history: Patient seen and examined. Sitting up on the side of the bed. In no acute distress. Coughing, yellowish patel sputum. Continues to have dyspnea with exertion. Also states she has a rash on her stomach and side, which is red/ purple and tender, but is improving. Abdomen and leg edema decreased. Denies cp, n/v/d. - Constitutional Vitals: Temp Pulse Resp BP Pulse Ox 96.6 F L 68 16 93/71 92 L 11/16/16 11:35 11/16/16 11:35 11/16/16 11:35 11/16/16 11:35 11/16/16 11:35 General appearance: Present: A&O X 3, morbidly obese, pleasant, no acute distress, answers questions appropriately - Head Head exam: Present: atraumatic, normocephalic - Eye Eye exam: Present: PERRL, conjuntiva pink, sclera anicteric Pupils: Present: PERRL - ENT ENT exam: Present: normal exam - Neck Neck exam general surgery: Present: supple, trachea midline. Absent: lymphadenopathy - Respiratory Respiratory exam: Present: prolonged expiratory phase, rales, wheezes. Absent: respiratory distress - Cardiovascular Cardiovascular exam: Present: RRR, +S1, +S2. Absent: diastolic murmur, gallop, rubs, systolic murmur - GI/Abdominal GI/Abdominal exam: Present: distended, firm, guarding, normal bowel sounds, tenderness Additional comments: Right side/abdominal rash/cellulitis. - Rectal Rectal exam: Present: deferred - Extremities Exam Extremities exam: Present: pedal edema, warm, radial pulses palpable and symetrical - Neurological Exam Neurological exam: Present: CN II-XII intact, oriented X3, no focal deficits. Absent: pronater drift, facial droop, speech deficit - Skin Skin exam: Present: dry, petechiae (Right side/abdomen rash/cellulitis ), rash Internal Medicine: Result - Labs CBC & Chem 7: 11/16/16 05:24 11/16/16 05:24 Labs: Short CBC 11/16/16 Range/Units 05:24 WBC 9.4 (4.3-11.1) K/mcL Hgb 13.7 (11.5-15.4) g/dL Hct 46.4 H (35.3-44.9) % Plt Count 222 (140-400) K/mcL Neutrophils # 7.3 (1.6-8.9) K/mcL [facility] 11/16/16 05:24 Sodium 138 Potassium 4.3 D Chloride 96 L Carbon Dioxide 33 H BUN 14 Creatinine 0.80 Glucose 67 L Calcium 8.5 L Consult Discharge Plan - Plan Referrals: Paulette De Anda DO [Resident] - 11/27/16 3:15 pm <Edwardo Minor - Last Filed: 11/16/16 18:09> Date of Encounter: 11/16/16 - Constitutional Vitals: Temp Pulse Resp BP Pulse Ox 97.5 F L 76 16 129/74 93 L 11/16/16 16:12 11/16/16 16:12 11/16/16 16:12 11/16/16 16:12 11/16/16 16:12 Internal Medicine: Result - Labs CBC & Chem 7: 11/16/16 05:24 11/16/16 05:24 Labs: Short CBC 11/16/16 Range/Units 05:24 WBC 9.4 (4.3-11.1) K/mcL Hgb 13.7 (11.5-15.4) g/dL Hct 46.4 H (35.3-44.9) % Plt Count 222 (140-400) K/mcL Neutrophils # 7.3 (1.6-8.9) K/mcL [facility] 11/16/16 05:24 Sodium 138 Potassium 4.3 D Chloride 96 L Carbon Dioxide 33 H BUN 14 Creatinine 0.80 Glucose 67 L Calcium 8.5 L - Attending Attestation I examined this patient and my medical decision-making was reviewed with the [employer]/PA/Advanced Practice Nurse/Resident Physician. I agree with the documented findings, disposition and treatment plan as described except to the extent set forth below.
[2016-11-16] MEDS: Nicotine 21 MG PATCH.TD24 TD SCH (21:29)
[2016-11-17] MEDS: *HR* Morphine 2 MG/ML SYRINGE IV PRN ×6 (00:36→21:22)
[2016-11-17] MEDS: Ipratropium/Albuterol Neb 3 ML IH SCH ×4 (03:23→22:46)
[2016-11-17 05:44] LABS: Basophils % 0.4 %; Eosinophils # 0.2 K/mcL (0.0-0.6); Eosinophils % 1.9 %; Hematocrit 45.4 % (35.3-44.9); Hemoglobin 13.5 g/dL (11.5-15.4); Immature Granulocytes % 0.3 % (0-4); Lymphocytes # 0.9 K/mcL (0.6-4.6); Lymphocytes % 9.3 %; Mean Corpuscular HGB Conc 29.7 g/dL (31.6-35.5); Mean Corpuscular Hemoglobin 23.8 pg (28.0-33.3); Mean Corpuscular Volume 79.9 fL (83.0-100.0); Mean Platelet Volume 10.9 fL (9.4-12.4); Monocytes % 9.9 %; Neutrophils # 7.6 K/mcL (1.6-8.9); Platelet Count 212 K/mcL (140-400); Red Blood Count 5.68 M/mcL (3.82-4.97); Red Cell Distribution Width 20.7 % (11.5-14.5); Segmented Neutrophils % 78.2 %
[2016-11-17 05:47] LABS: BUN/Creatinine Ratio 19 (6-26); Blood Urea Nitrogen 13 mg/dL (7-20); Calcium 8.5 mg/dL (8.6-10.8); Carbon Dioxide 30 mEq/L (19-29); Chloride 99 mEq/L (98-109); Glucose 119 mg/dL (70-99); Osmolality,Calculated 285 (280-300); Potassium 3.6 mEq/L (3.5-4.5); Sodium 137 mEq/L (136-145); eGFR For African Americans > 60 (> 60); eGFR For Non-African Americans > 60 (> 60)
[2016-11-17] MEDS: Insulin LISPRO 300 UNITS/3 ML VIAL SQ SCH ×7 (08:18→21:23)
[2016-11-17] MEDS: Insulin DETEMIR 100 UNIT/ML X5UNITS SQ SCH ×2 (08:18→21:22)
[2016-11-17] MEDS: Aspirin Enteric Coated 81 MG Tablet PO SCH (08:20)
[2016-11-17] MEDS: *HR* Metformin 500 MG TABLET PO SCH ×2 (08:20→16:30)
[2016-11-17] MEDS: Isosorbide MONOnitrate (24 HR) 30 MG TAB.ER.24H PO SCH (08:21)
[2016-11-17] MEDS: Pregabalin 50 MG CAPSULE PO SCH ×3 (08:21→21:22)
[2016-11-17] MEDS: *HR* Heparin 5,000 UNIT/ML VIAL SQ SCH ×3 (08:25→23:55)
[2016-11-17] MEDS: Furosemide 40 MG/4 ML VIAL IV SCH ×2 (08:29→16:30)
[2016-11-17] MEDS: ceFAZolin 1,000 MG in D5% in Water (Mini-Bag+) 100 ML IVPB SCH ×3 (08:38→23:54)
[2016-11-17] MEDS: Fluticasone Propionate Nasal 50 MCG/SPRAY BOTTLE NS SCH (08:42)
--- NOTE | 2016-11-17 10:26 | Internal Med Progress Note ---
<HermesArturo Lyle - Last Filed: 11/17/16 10:23> Date of Encounter: 11/17/16 Time of Encounter: 10:24 - Assessment and plan (1) Acute exacerbation of CHF (congestive heart failure) Current Visit: Yes Status: Acute Assessment and plan: Hx of diastolic CHF Acute CHF exacerbation. Improving. Continue current plan. B/L le pitting edema CXR: pleural effusion Last Echo: 10/18/16: EF 70%, mild LVH, moderate LV diastolic dysfunction, mild right ventricular hypokinesis, moderate pulm hypertension, normal wall motion. Continue IV lasix 60mg BID Strict I/O Daily weight Qualifiers: Congestive heart failure type: unspecified congestive heart failure type Qualified Code(s): I50.9 - Heart failure, unspecified (2) Cellulitis Current Visit: Yes Status: Acute Assessment and plan: right sided abdominal cellulitis almost completely resolved. one more day of abx Cefazolin IV Qualifiers: Site of cellulitis of trunk: abdominal wall Qualified Code(s): L03.311 - Cellulitis of abdominal wall (3) COPD (chronic obstructive pulmonary disease) Current Visit: No Status: Chronic Assessment and plan: O2 dependent continue home meds Social work helping with home health/O2 needs Qualifiers: COPD type: emphysema Emphysema type: unspecified Qualified Code(s): J43.9 - Emphysema, unspecified (4) Hypomagnesemia Current Visit: Yes Status: Acute Assessment and plan: Patient Mg level of 1.4 IV 2gm magnesium sulfate in 5% dextrose given as once time dose. Continue to follow labs (5) Tobacco abuse Current Visit: No Status: Chronic Assessment and plan: smoking cessation counseling given (6) Diabetes mellitus Current Visit: No Status: Chronic Assessment and plan: Was taking long acting levemir 100 units BID and became hypoglycemic with blood sugar of 55. Was given juice and blood sugar increased back within normal range. Spoke to pharmacy about decreasing the levemir. Dose decreased to 50 units BID. No hypoglycemic events today. Blood sugar control much better. Will continue 50 units Levemir BID. Continue sliding scale insulin and monitoring POC checks have been between 70-150 last 24 hours. Continue current regimen. Qualifiers: Diabetes mellitus type: other specified (including KOJO) Diabetes mellitus complication status: with unspecified complications Diabetes mellitus long term care phlebotomist insulin use: with fdc use Qualified Code(s): E13.8 - Other specified diabetes mellitus with unspecified complications; Z79.4 - terminal block assembler ( current) use of insulin (7) DVT prophylaxis Current Visit: No Status: Acute Assessment and plan: pharmacologic anticoagulation heparin subq - Subjective Interval history: Patient seen and examined. Sitting up on the side of the bed. In no acute distress. Still coughing, yellowish patel sputum. Continues to have dyspnea with exertion. Right sided abdomen rash improving. Abdomen and leg edema decreased. Denies cp, n/v/d. - Constitutional Vitals: Temp Pulse Resp BP Pulse Ox 99.4 F 86 16 127/71 93 L 11/17/16 07:53 11/17/16 07:53 11/17/16 09:33 11/17/16 09:33 11/17/16 07:53 General appearance: Present: A&O X 3, morbidly obese, pleasant, no acute distress, answers questions appropriately - Head Head exam: Present: atraumatic, normocephalic - Eye Eye exam: Present: PERRL, conjuntiva pink, sclera anicteric Pupils: Present: PERRL - Neck Neck exam general surgery: Present: supple, trachea midline. Absent: lymphadenopathy - Respiratory Respiratory exam: Present: CTAB, rales, rhonchi, wheezes. Absent: accessory muscle use - Cardiovascular Cardiovascular exam: Present: RRR, +S1, +S2. Absent: diastolic murmur, gallop, rubs, systolic murmur - GI/Abdominal GI/Abdominal exam: Present: distended, normal bowel sounds, tenderness. Absent : firm, guarding, rebound - Extremities Exam Extremities exam: Present: pedal edema, warm - Neurological Exam Neurological exam: Present: CN II-XII intact, oriented X3, no focal deficits. Absent: facial droop, speech deficit - Skin Skin exam: Present: erythema (right side abdomen. improving), intact. Absent: cyanosis Internal Medicine: Result - Labs CBC & Chem 7: 11/17/16 05:24 11/17/16 05:24 Labs: Short CBC 11/17/16 Range/Units 05:24 WBC 9.8 (4.3-11.1) K/mcL Hgb 13.5 (11.5-15.4) g/dL Hct 45.4 H (35.3-44.9) % Plt Count 212 (140-400) K/mcL Neutrophils # 7.6 (1.6-8.9) K/mcL [facility] 11/17/16 05:24 Sodium 137 Potassium 3.6 Chloride 99 Carbon Dioxide 30 H BUN 13 Creatinine 0.70 Glucose 119 H Calcium 8.5 L Consult Discharge Plan - Plan Referrals: Paulette De Anda DO [Resident] - 11/27/16 3:15 pm <Edwardo Minor - Last Filed: 11/17/16 18:21> Date of Encounter: 11/17/16 - Constitutional Vitals: Temp Pulse Resp BP Pulse Ox 98.0 F 77 16 127/68 94 L 11/17/16 16:08 11/17/16 16:08 11/17/16 16:08 11/17/16 16:08 11/17/16 16:08 Internal Medicine: Result - Labs CBC & Chem 7: 11/17/16 05:24 11/17/16 05:24 Labs: Short CBC 11/17/16 Range/Units 05:24 WBC 9.8 (4.3-11.1) K/mcL Hgb 13.5 (11.5-15.4) g/dL Hct 45.4 H (35.3-44.9) % Plt Count 212 (140-400) K/mcL Neutrophils # 7.6 (1.6-8.9) K/mcL [facility] 11/17/16 05:24 Sodium 137 Potassium 3.6 Chloride 99 Carbon Dioxide 30 H BUN 13 Creatinine 0.70 Glucose 119 H Calcium 8.5 L - Attending Attestation I examined this patient and my medical decision-making was reviewed with the FREEDOM OF INFORMATION OFFICER/PA/Advanced Practice Nurse/Resident Physician. I agree with the documented findings, disposition and treatment plan as described except to the extent set forth below.
[2016-11-17] MEDS: Albuterol 2.5 MG/3 ML NEBULIZER IH SCH ×2 (11:12→22:46)
[2016-11-17] MEDS: Tiotropium 18 MCG inhalation IH SCH (11:13)
[2016-11-17] MEDS: Budesonide/Formoterol 160/4.5 MDI IH SCH ×2 (11:13→22:46)
[2016-11-17 11:30] LABS: Magnesium 1.6 mg/dL (1.6-2.6); Phosphorous 3.4 mg/dL (2.3-4.7)
[2016-11-17] MEDS: Nicotine 21 MG PATCH.TD24 TD SCH (21:21)
[2016-11-18] MEDS: *HR* Morphine 2 MG/ML SYRINGE IV PRN ×2 (00:41→05:02)
[2016-11-18] MEDS: Albuterol 2.5 MG/3 ML NEBULIZER IH SCH ×3 (03:39→15:20)
[2016-11-18] MEDS: Ipratropium/Albuterol Neb 3 ML IH SCH ×4 (03:39→22:24)
[2016-11-18 07:13] LABS: BUN/Creatinine Ratio 22 (6-26); Blood Urea Nitrogen 15 mg/dL (7-20); Calcium 8.8 mg/dL (8.6-10.8); Carbon Dioxide 34 mEq/L (19-29); Chloride 97 mEq/L (98-109); Glucose 149 mg/dL (70-99); Osmolality,Calculated 288 (280-300); Potassium 3.5 mEq/L (3.5-4.5); Sodium 137 mEq/L (136-145); eGFR For African Americans > 60 (> 60); eGFR For Non-African Americans > 60 (> 60)
[2016-11-18 07:24] LABS: Basophils % 0.3 %; Eosinophils # 0.3 K/mcL (0.0-0.6); Eosinophils % 2.9 %; Hematocrit 43.3 % (35.3-44.9); Hemoglobin 13.2 g/dL (11.5-15.4); Immature Granulocytes % 0.1 % (0-4); Lymphocytes % 11.6 %; Mean Corpuscular HGB Conc 30.5 g/dL (31.6-35.5); Mean Corpuscular Hemoglobin 24.2 pg (28.0-33.3); Mean Corpuscular Volume 79.3 fL (83.0-100.0); Mean Platelet Volume 11.2 fL (9.4-12.4); Monocytes % 11.8 %; Neutrophils # 6.4 K/mcL (1.6-8.9); Platelet Count 201 K/mcL (140-400); Red Blood Count 5.46 M/mcL (3.82-4.97); Red Cell Distribution Width 20.5 % (11.5-14.5); Segmented Neutrophils % 73.3 %
[2016-11-18] MEDS: Insulin LISPRO 300 UNITS/3 ML VIAL SQ SCH ×7 (09:13→21:31)
--- NOTE | 2016-11-18 09:28 | Internal Med Progress Note ---
Date of Encounter: 11/19/16 Time of Encounter: 09:24 - Assessment and plan (1) Acute exacerbation of CHF (congestive heart failure) Current Visit: Yes Status: Acute Assessment and plan: Hx of diastolic CHF Acute CHF exacerbation. Improving. Continue current plan. B/L le pitting edema CXR: pleural effusion Last Echo: 10/18/16: EF 70%, mild LVH, moderate LV diastolic dysfunction, mild right ventricular hypokinesis, moderate pulm hypertension, normal wall motion. Continue IV lasix 60mg BID Strict I/O Daily weight 11/18/2016 - Negative fluid balance : 600 ml. - Sitting up in bed but has SOB - occasional cough ++ - Normal creat and K=3.5 - will give K as she will be receiving lasix today and will repeat labs in AM. Qualifiers: Congestive heart failure type: diastolic Qualified Code(s): I50.33 - Acute on chronic diastolic (congestive) heart failure (2) Cellulitis Current Visit: Yes Status: Acute Assessment and plan: right sided abdominal cellulitis almost completely resolved. one more day of abx Cefazolin IV 11/18/2016 improving cellulitis will continue same medications Qualifiers: Site of cellulitis: trunk Site of cellulitis of trunk: abdominal wall Qualified Code(s): L03.311 - Cellulitis of abdominal wall (3) COPD (chronic obstructive pulmonary disease) Current Visit: No Status: Chronic Assessment and plan: O2 dependent continue home meds Social work helping with home health/O2 needs Qualifiers: COPD type: emphysema Emphysema type: unspecified Qualified Code(s): J43.9 - Emphysema, unspecified (4) Diabetes mellitus Current Visit: No Status: Chronic Assessment and plan: Was taking long acting levemir 100 units BID and became hypoglycemic with blood sugar of 55. Was given juice and blood sugar increased back within normal range. Spoke to pharmacy about decreasing the levemir. Dose decreased to 50 units BID. No hypoglycemic events today. Blood sugar control much better. Will continue 50 units Levemir BID. Continue sliding scale insulin and monitoring 11/18/2016 POC : Well controlled. Occasional reading above 220. will continue present management. will stop metformin. Qualifiers: Diabetes mellitus type: other specified (including KOJO) Diabetes mellitus complication status: with unspecified complications Diabetes mellitus fci insulin use: with fci use Qualified Code(s): E13.8 - Other specified diabetes mellitus with unspecified complications; Z79.4 - rn long term care ( current) use of insulin (5) Hypomagnesemia Current Visit: Yes Status: Acute Assessment and plan: Patient Mg level of 1.4 IV 2gm magnesium sulfate in 5% dextrose given as once time dose. Continue to follow labs 11/18/2015 - Mg replaced and now it is 1.6 - (6) DVT prophylaxis Current Visit: No Status: Acute Assessment and plan: pharmacologic anticoagulation heparin subq Medical decision making : has mild to moderate risk for worsening infection and renal function. - Subjective Interval history: patient seen and examined. has still occasional SOB cough ++ no chest pain or palpitations. - Constitutional Vitals: Temp Pulse Resp BP Pulse Ox 97.9 F 72 18 120/71 90 L 11/18/16 07:00 11/18/16 07:00 11/18/16 07:00 11/18/16 07:00 11/18/16 07:00 General appearance: Present: A&O X 3, morbidly obese, pleasant, no acute distress, answers questions appropriately - Head Head exam: Present: atraumatic, normocephalic - Eye Eye exam: Present: PERRL, conjuntiva pink, sclera anicteric Pupils: Present: PERRL - Neck Neck exam general surgery: Present: supple, trachea midline. Absent: lymphadenopathy - Respiratory Respiratory exam: Present: CTAB. Absent: accessory muscle use, rales, rhonchi, wheezes - Cardiovascular Cardiovascular exam: Present: RRR, +S1, +S2. Absent: diastolic murmur, gallop, rubs, systolic murmur - GI/Abdominal GI/Abdominal exam: Present: normal bowel sounds, soft, no peritoneal signs. Absent: distended, tenderness - Extremities Exam Extremities exam: Present: warm, radial pulses palpable and symetrical. Absent : calf tenderness, cyanotic, pedal edema - Neurological Exam Neurological exam: Present: CN II-XII intact, oriented X3, no focal deficits. Absent: pronater drift, facial droop, speech deficit - Skin Skin exam: Present: dry, intact Internal Medicine: Result - Labs CBC & Chem 7: 11/19/16 05:00 11/19/16 05:00 Labs: Short CBC 11/18/16 Range/Units 06:05 WBC 8.7 (4.3-11.1) K/mcL Hgb 13.2 (11.5-15.4) g/dL Hct 43.3 (35.3-44.9) % Plt Count 201 (140-400) K/mcL Neutrophils # 6.4 (1.6-8.9) K/mcL BMP 11/18/16 06:05 Sodium 137 Potassium 3.5 Chloride 97 L Carbon Dioxide 34 H BUN 15 Creatinine 0.69 Glucose 149 H Calcium 8.8 Consult Discharge Plan - Plan Referrals: Paulette De Anda DO [Resident] - 11/27/16 3:15 pm
[2016-11-18] MEDS: *HR* Heparin 5,000 UNIT/ML VIAL SQ SCH ×3 (09:53→23:37)
[2016-11-18] MEDS: Fluticasone Propionate Nasal 50 MCG/SPRAY BOTTLE NS SCH (09:55)
[2016-11-18] MEDS: Aspirin Enteric Coated 81 MG Tablet PO SCH (09:55)
[2016-11-18] MEDS: Insulin DETEMIR 100 UNIT/ML X5UNITS SQ SCH ×2 (09:56→21:32)
[2016-11-18] MEDS: Isosorbide MONOnitrate (24 HR) 30 MG TAB.ER.24H PO SCH (09:56)
[2016-11-18] MEDS: Pregabalin 50 MG CAPSULE PO SCH ×3 (09:56→20:04)
[2016-11-18] MEDS: Furosemide 40 MG/4 ML VIAL IV SCH ×2 (09:59→17:50)
[2016-11-18] MEDS: Tiotropium 18 MCG inhalation IH SCH (10:03)
[2016-11-18] MEDS: Budesonide/Formoterol 160/4.5 MDI IH SCH ×2 (10:04→22:24)
[2016-11-18] MEDS: ceFAZolin 1,000 MG in D5% in Water (Mini-Bag+) 100 ML IVPB SCH ×3 (10:07→23:37)
[2016-11-18] MEDS: Nicotine 21 MG PATCH.TD24 TD SCH (20:04)
[2016-11-18] MEDS: Acetaminophen 325 MG TABLET PO PRN (21:35)
[2016-11-19] MEDS: Albuterol 2.5 MG/3 ML NEBULIZER IH SCH ×3 (04:03→16:33)
[2016-11-19] MEDS: Ipratropium/Albuterol Neb 3 ML IH SCH ×4 (04:03→22:30)
[2016-11-19 05:30] LABS: Basophils % 0.5 %; Eosinophils # 0.3 K/mcL (0.0-0.6); Eosinophils % 3.1 %; Hematocrit 45.5 % (35.3-44.9); Hemoglobin 13.6 g/dL (11.5-15.4); Immature Granulocytes % 0.2 % (0-4); Lymphocytes # 0.9 K/mcL (0.6-4.6); Mean Corpuscular HGB Conc 29.9 g/dL (31.6-35.5); Mean Corpuscular Hemoglobin 23.9 pg (28.0-33.3); Mean Corpuscular Volume 80.1 fL (83.0-100.0); Mean Platelet Volume 10.6 fL (9.4-12.4); Monocytes % 12.2 %; Neutrophils # 5.9 K/mcL (1.6-8.9); Platelet Count 196 K/mcL (140-400); Red Blood Count 5.68 M/mcL (3.82-4.97); Red Cell Distribution Width 20.7 % (11.5-14.5)
[2016-11-19 05:47] LABS: Albumin 2.7 g/dL (3.5-5.0); Albumin/Globulin Ratio 0.8 (1.1-2.2); Alkaline Phosphatase 105 Units/L (38-126); Aspartate Amino Transferase 14 Units/L (5-34); BUN/Creatinine Ratio 23 (6-26); Bilirubin,Total 0.9 mg/dL (0.2-1.2); Blood Urea Nitrogen 16 mg/dL (7-20); Calcium 9.3 mg/dL (8.6-10.8); Carbon Dioxide 31 mEq/L (19-29); Chloride 101 mEq/L (98-109); Globulin 3.6 g/dL (2.4-3.5); Glucose 224 mg/dL (70-99); Osmolality,Calculated 296 (280-300); Potassium 4.3 mEq/L (3.5-4.5); Sodium 139 mEq/L (136-145); Total Protein 6.3 g/dL (6.0-8.3); eGFR For African Americans > 60 (> 60); eGFR For Non-African Americans > 60 (> 60)
[2016-11-19 05:49] LABS: Alanine Aminotransferase < 6 Units/L (0-55)
[2016-11-19] MEDS: Acetaminophen 325 MG TABLET PO PRN ×2 (06:18→17:03)
[2016-11-19 07:24] LABS: Adenovirus F 40/41 PCR Not detected (Not detect); Astrovirus PCR Not detected (Not detect); C.difficile Toxin A/B by PCR Not detected (Not detect); Campylobacter by PCR Not detected (Not detect); Cryptosporidium by PCR Not detected (Not detect); Cyclospora cayetanensis PCR Not detected (Not detect); E. coli O157 by PCR Not detected (Not detect); Entamoeba histolytica PCR Not detected (Not detect); Enteroaggregative E.coli(EAEC) Not detected (Not detect); Enteropathogenic E.coli(EPEC) Not detected (Not detect); Enterotoxigenic E.coli (ETEC) Not detected (Not detect); Giardia lamblia PCR Not detected (Not detect); Norovirus GI/GII PCR Not detected (Not detect); Plesiomonas shigelloides PCR Not detected (Not detect); Rotavirus A PCR Not detected (Not detect); Salmonella PCR Not detected (Not detect); Sapovirus PCR Not detected (Not detect); Shig/EnteroinvasiveE coli EIEC Not detected (Not detect); Shigalike tox-prod E coli STEC Not detected (Not detect); Vibrio PCR Not detected (Not detect); Vibrio cholerae PCR Not detected (Not detect); Yersinia enterocolitica PCR Not detected (Not detect)
[2016-11-19] MEDS: Tiotropium 18 MCG inhalation IH SCH (08:08)
[2016-11-19] MEDS: Insulin LISPRO 300 UNITS/3 ML VIAL SQ SCH ×7 (08:35→21:14)
[2016-11-19] MEDS: Isosorbide MONOnitrate (24 HR) 30 MG TAB.ER.24H PO SCH (08:37)
[2016-11-19] MEDS: Insulin DETEMIR 100 UNIT/ML X5UNITS SQ SCH ×2 (08:37→21:15)
[2016-11-19] MEDS: Aspirin Enteric Coated 81 MG Tablet PO SCH (08:37)
[2016-11-19] MEDS: Pregabalin 50 MG CAPSULE PO SCH ×3 (08:38→21:09)
[2016-11-19] MEDS: *HR* Heparin 5,000 UNIT/ML VIAL SQ SCH ×3 (08:41→23:42)
[2016-11-19] MEDS: Fluticasone Propionate Nasal 50 MCG/SPRAY BOTTLE NS SCH (08:43)
[2016-11-19] MEDS: Furosemide 40 MG/4 ML VIAL IV SCH ×2 (08:44→16:51)
[2016-11-19] MEDS: ceFAZolin 1,000 MG in D5% in Water (Mini-Bag+) 100 ML IVPB SCH ×3 (08:52→23:42)
[2016-11-19] MEDS: Budesonide/Formoterol 160/4.5 MDI IH SCH ×2 (10:13→22:30)
--- NOTE | 2016-11-19 12:26 | Internal Med Progress Note ---
Date of Encounter: 11/19/16 Time of Encounter: 12:24 - Assessment and plan (1) Acute exacerbation of CHF (congestive heart failure) Current Visit: Yes Status: Acute Assessment and plan: Hx of diastolic CHF Acute CHF exacerbation. Improving. Continue current plan. B/L le pitting edema CXR: pleural effusion Last Echo: 10/18/16: EF 70%, mild LVH, moderate LV diastolic dysfunction, mild right ventricular hypokinesis, moderate pulm hypertension, normal wall motion. Continue IV lasix 60mg BID Strict I/O Daily weight 11/18/2016 - Negative fluid balance : 600 ml. - Sitting up in bed but has SOB - occasional cough ++ - Normal creat and K=3.5 - will give K as she will be receiving lasix today and will repeat labs in AM. 11/19/2016 -Negative fluid balance: 850 mL -She has pedal edema 2+ -Creatinine 0.7, potassium 4.3 -We will continue present treatment. -Likely home tomorrow. Qualifiers: Congestive heart failure type: diastolic Qualified Code(s): I50.33 - Acute on chronic diastolic (congestive) heart failure (2) Cellulitis Current Visit: Yes Status: Acute Assessment and plan: right sided abdominal cellulitis almost completely resolved. one more day of abx Cefazolin IV 11/18/2016 improving cellulitis will continue same medications 11/19/2016. -Improving cellulitis. -We will continue present antibiotics. -We will switch to oral cephalosporin upon discharge. Qualifiers: Site of cellulitis: trunk Site of cellulitis of trunk: abdominal wall Qualified Code(s): L03.311 - Cellulitis of abdominal wall (3) COPD (chronic obstructive pulmonary disease) Current Visit: No Status: Chronic Assessment and plan: O2 dependent continue home meds Social work helping with home health/O2 needs Qualifiers: COPD type: emphysema Emphysema type: unspecified Qualified Code(s): J43.9 - Emphysema, unspecified (4) Diabetes mellitus Current Visit: No Status: Chronic Assessment and plan: Was taking long acting levemir 100 units BID and became hypoglycemic with blood sugar of 55. Was given juice and blood sugar increased back within normal range. Spoke to pharmacy about decreasing the levemir. Dose decreased to 50 units BID. No hypoglycemic events today. Blood sugar control much better. Will continue 50 units Levemir BID. Continue sliding scale insulin and monitoring 11/18/2016 POC : Well controlled. Occasional reading above 220. will continue present management. will stop metformin. Qualifiers: Diabetes mellitus type: other specified (including KOJO) Diabetes mellitus complication status: with unspecified complications Diabetes mellitus manager terminal insulin use: with manager terminal use Qualified Code(s): E13.8 - Other specified diabetes mellitus with unspecified complications; Z79.4 - manager long term care ( current) use of insulin (5) Hypomagnesemia Current Visit: Yes Status: Acute Assessment and plan: Patient Mg level of 1.4 IV 2gm magnesium sulfate in 5% dextrose given as once time dose. Continue to follow labs 11/18/2015 - Mg replaced and now it is 1.6 - (6) DVT prophylaxis Current Visit: No Status: Acute Assessment and plan: pharmacologic anticoagulation heparin subq Medical decision making : has mild to moderate risk for worsening infection and renal function. - Subjective Interval history: patient seen and examined. has still occasional SOB cough ++ no chest pain or palpitations. 11/19/2016. Patient seen and examined. Chart reviewed. Patient still occasionally coughing. She denies any chest pain/pressure/dizziness. - Constitutional Vitals: Temp Pulse Resp BP Pulse Ox 98.1 F 67 18 152/86 97 11/19/16 07:00 11/19/16 07:00 11/19/16 10:13 11/19/16 07:00 11/19/16 10:13 General appearance: Present: A&O X 3, morbidly obese, pleasant, no acute distress, answers questions appropriately - Head Head exam: Present: atraumatic, normocephalic - Eye Eye exam: Present: PERRL, conjuntiva pink, sclera anicteric Pupils: Present: PERRL - Neck Neck exam general surgery: Present: supple, trachea midline. Absent: lymphadenopathy - Respiratory Respiratory exam: Present: CTAB. Absent: accessory muscle use, rales, rhonchi, wheezes - Cardiovascular Cardiovascular exam: Present: RRR, +S1, +S2. Absent: diastolic murmur, gallop, rubs, systolic murmur - GI/Abdominal GI/Abdominal exam: Present: normal bowel sounds, soft, no peritoneal signs. Absent: distended, tenderness - Extremities Exam Extremities exam: Present: warm, radial pulses palpable and symetrical. Absent : calf tenderness, cyanotic, pedal edema - Neurological Exam Neurological exam: Present: CN II-XII intact, oriented X3, no focal deficits. Absent: pronater drift, facial droop, speech deficit - Skin Skin exam: Present: dry, intact Internal Medicine: Result - Labs CBC & Chem 7: 11/19/16 05:00 11/19/16 05:00 Labs: Short CBC 11/19/16 Range/Units 05:00 WBC 8.1 (4.3-11.1) K/mcL Hgb 13.6 (11.5-15.4) g/dL Hct 45.5 H (35.3-44.9) % Plt Count 196 (140-400) K/mcL Neutrophils # 5.9 (1.6-8.9) K/mcL BMP 11/19/16 05:00 Sodium 139 Potassium 4.3 Chloride 101 Carbon Dioxide 31 H BUN 16 Creatinine 0.70 Glucose 224 H Calcium 9.3 Liver Function 11/19/16 Range/Units 05:00 Total Bilirubin 0.9 (0.2-1.2) mg/dL AST 14 (5-34) Units/L ALT < 6 (0-55) Units/L Alkaline Phosphatase 105 (38-126) Units/L Albumin 2.7 L (3.5-5.0) g/dL Consult Discharge Plan - Plan Referrals: Paulette De Anda DO [Resident] - 11/27/16 3:15 pm
[2016-11-19] MEDS: Nicotine 21 MG PATCH.TD24 TD SCH (21:10)
[2016-11-20 03:48] LABS: Red Cell Distribution Width 20.5 % (11.5-14.5)
[2016-11-20 03:50] LABS: Basophils % 0.5 %; Eosinophils # 0.2 K/mcL (0.0-0.6); Eosinophils % 2.5 %; Hematocrit 44.8 % (35.3-44.9); Hemoglobin 13.4 g/dL (11.5-15.4); Immature Granulocytes % 0.5 % (0-4); Immature Platelets 6.6 % (1.1-6.1); Lymphocytes # 0.8 K/mcL (0.6-4.6); Lymphocytes % 12.8 %; Mean Corpuscular HGB Conc 29.9 g/dL (31.6-35.5); Mean Corpuscular Hemoglobin 23.8 pg (28.0-33.3); Mean Corpuscular Volume 79.6 fL (83.0-100.0); Mean Platelet Volume 10.9 fL (9.4-12.4); Monocytes # 0.7 K/mcL (0.0-1.3); Monocytes % 10.4 %; Neutrophils # 4.7 K/mcL (1.6-8.9); Platelet Count 193 K/mcL (140-400); Red Blood Count 5.63 M/mcL (3.82-4.97); Segmented Neutrophils % 73.3 %
[2016-11-20 03:54] LABS: Albumin 2.8 g/dL (3.5-5.0); Albumin/Globulin Ratio 0.8 (1.1-2.2); Alkaline Phosphatase 96 Units/L (38-126); Aspartate Amino Transferase 11 Units/L (5-34); BUN/Creatinine Ratio 20 (6-26); Bilirubin,Total 0.7 mg/dL (0.2-1.2); Blood Urea Nitrogen 16 mg/dL (7-20); Calcium 9.1 mg/dL (8.6-10.8); Carbon Dioxide 32 mEq/L (19-29); Chloride 97 mEq/L (98-109); Globulin 3.3 g/dL (2.4-3.5); Glucose 252 mg/dL (70-99); Osmolality,Calculated 298 (280-300); Potassium 3.6 mEq/L (3.5-4.5); Sodium 139 mEq/L (136-145); Total Protein 6.1 g/dL (6.0-8.3); eGFR For African Americans > 60 (> 60); eGFR For Non-African Americans > 60 (> 60)
[2016-11-20 03:59] LABS: Alanine Aminotransferase < 6 Units/L (0-55)
[2016-11-20 04:03] LABS: Large Platelets Present (Not Present); Platelet Estimate Normal (Normal)
[2016-11-20] MEDS: Albuterol 2.5 MG/3 ML NEBULIZER IH SCH ×3 (04:03→19:31)
[2016-11-20] MEDS: Ipratropium/Albuterol Neb 3 ML IH SCH ×4 (04:03→22:35)
[2016-11-20] MEDS: Acetaminophen 325 MG TABLET PO PRN ×2 (04:27→21:13)
[2016-11-20] MEDS: Furosemide 40 MG/4 ML VIAL IV SCH ×2 (09:47→18:07)
[2016-11-20] MEDS: Aspirin Enteric Coated 81 MG Tablet PO SCH (09:48)
[2016-11-20] MEDS: *HR* Heparin 5,000 UNIT/ML VIAL SQ SCH ×2 (09:48→18:07)
[2016-11-20] MEDS: Isosorbide MONOnitrate (24 HR) 30 MG TAB.ER.24H PO SCH (09:49)
[2016-11-20] MEDS: Pregabalin 50 MG CAPSULE PO SCH ×3 (09:49→21:08)
[2016-11-20] MEDS: ceFAZolin 1,000 MG in D5% in Water (Mini-Bag+) 100 ML IVPB SCH ×2 (09:51→18:08)
[2016-11-20] MEDS: Insulin LISPRO 300 UNITS/3 ML VIAL SQ SCH ×7 (09:53→21:10)
[2016-11-20] MEDS: Fluticasone Propionate Nasal 50 MCG/SPRAY BOTTLE NS SCH (09:53)
[2016-11-20] MEDS: Tiotropium 18 MCG inhalation IH SCH (11:04)
[2016-11-20] MEDS: Budesonide/Formoterol 160/4.5 MDI IH SCH ×2 (11:04→22:35)
[2016-11-20] MEDS: Insulin DETEMIR 100 UNIT/ML X5UNITS SQ SCH ×2 (14:07→21:10)
--- NOTE | 2016-11-20 14:11 | Internal Med Progress Note ---
<DouglasRasta - Last Filed: 11/20/16 14:52> Date of Encounter: 11/20/16 Time of Encounter: 14:08 - Assessment and plan (1) Acute exacerbation of CHF (congestive heart failure) Current Visit: Yes Status: Acute Assessment and plan: Patient does have edema but is at her baseline I/O cumulatively shows 800 positive fluid balance Creatinine has remained stable while on Lasix 60 IV BID Qualifiers: Congestive heart failure type: diastolic Qualified Code(s): I50.33 - Acute on chronic diastolic (congestive) heart failure (2) Insulin dependent diabetes mellitus Current Visit: Yes Status: Chronic Assessment and plan: Patient did have an episode of hypoglycemia while on her home dose Levemir 100 BID She has been blood sugar readings today while on Levemir 50 BID with SSI coverage (3) Cellulitis Current Visit: Yes Status: Acute Assessment and plan: Abdominal cellulitis has improved each day while on Cefazolin and patient has no complaints of pain Will DC IV antibiotics tomorrow and switch to oral cephalosporin upon discharge Qualifiers: Site of cellulitis: trunk Site of cellulitis of trunk: abdominal wall Qualified Code(s): L03.311 - Cellulitis of abdominal wall (4) COPD (chronic obstructive pulmonary disease) Current Visit: No Status: Chronic Assessment and plan: Patient is currently off oxygen, but will likely need home O2 upon discharge Continue with breathing treatments as scheduled Qualifiers: COPD type: emphysema Emphysema type: unspecified Qualified Code(s): J43.9 - Emphysema, unspecified (5) DVT prophylaxis Current Visit: No Status: Acute Assessment and plan: Heparin 5000 units TID - Subjective Interval history: Pt seen and examined. She states she is doing well right now and has no issues with breathing while off oxygen. She uses oxygen as needed at home but currently doesn't have any supply. Denies any pain, cough, fever, chills, nausea , vomiting. - Constitutional Vitals: Temp Pulse Resp BP Pulse Ox 97.8 F 74 18 137/80 95 11/20/16 11:39 11/20/16 11:39 11/20/16 11:39 11/20/16 11:39 11/20/16 11:39 General appearance: Present: cooperative, morbidly obese, pleasant, no acute distress, answers questions appropriately - Head Head exam: Present: atraumatic, normocephalic - Eye Eye exam: Present: PERRL, conjuntiva pink, sclera anicteric - Neck Neck exam general surgery: Present: supple, trachea midline. Absent: lymphadenopathy - Respiratory Respiratory exam: Present: rhonchi. Absent: accessory muscle use, rales, wheezes - Cardiovascular Cardiovascular exam: Present: RRR, +S1, +S2. Absent: diastolic murmur, gallop, rubs, systolic murmur - GI/Abdominal GI/Abdominal exam: Present: normal bowel sounds, soft, no peritoneal signs. Absent: distended, tenderness - Extremities Exam Extremities exam: Present: pedal edema (trace), warm, radial pulses palpable and symetrical. Absent: calf tenderness, cyanotic - Neurological Exam Neurological exam: Present: alert, no focal deficits. Absent: facial droop, speech deficit - Skin Skin exam: Present: dry, erythema (slightly erythematous in lower quadrants of her abdomen), intact Internal Medicine: Result - Labs CBC & Chem 7: 11/20/16 02:59 11/20/16 02:59 Labs: Short CBC 11/20/16 Range/Units 02:59 WBC 6.4 (4.3-11.1) K/mcL Hgb 13.4 (11.5-15.4) g/dL Hct 44.8 (35.3-44.9) % Plt Count 193 (140-400) K/mcL Neutrophils # 4.7 (1.6-8.9) K/mcL BMP 11/20/16 02:59 Sodium 139 Potassium 3.6 Chloride 97 L Carbon Dioxide 32 H BUN 16 Creatinine 0.82 Glucose 252 H Calcium 9.1 Liver Function 11/20/16 Range/Units 02:59 Total Bilirubin 0.7 (0.2-1.2) mg/dL AST 11 (5-34) Units/L ALT < 6 (0-55) Units/L Alkaline Phosphatase 96 (38-126) Units/L Albumin 2.8 L (3.5-5.0) g/dL Consult Discharge Plan - Plan Referrals: Paulette De Anda DO [Resident] - 11/27/16 3:15 pm <Edwardo Minor - Last Filed: 11/20/16 18:19> Date of Encounter: 11/20/16 - Assessment and plan (1) Acute exacerbation of CHF (congestive heart failure) Current Visit: Yes Status: Acute Qualifiers: Congestive heart failure type: diastolic Qualified Code(s): I50.33 - Acute on chronic diastolic (congestive) heart failure (2) Cellulitis Current Visit: Yes Status: Acute Qualifiers: Site of cellulitis: trunk Site of cellulitis of trunk: abdominal wall Qualified Code(s): L03.311 - Cellulitis of abdominal wall (3) COPD (chronic obstructive pulmonary disease) Current Visit: No Status: Chronic Qualifiers: COPD type: emphysema Emphysema type: unspecified Qualified Code(s): J43.9 - Emphysema, unspecified (4) Diabetes mellitus Current Visit: No Status: Chronic Qualifiers: Diabetes mellitus type: other specified (including KOJO) Diabetes mellitus complication status: with unspecified complications Diabetes mellitus predatory animal exterminator insulin use: with predatory animal exterminator use Qualified Code(s): E13.8 - Other specified diabetes mellitus with unspecified complications; Z79.4 - watermelon inspector ( current) use of insulin (5) Hypomagnesemia Current Visit: Yes Status: Acute (6) DVT prophylaxis Current Visit: No Status: Acute - Constitutional Vitals: Temp Pulse Resp BP Pulse Ox 97.9 F 75 18 128/76 94 L 11/20/16 16:12 11/20/16 16:12 11/20/16 16:12 11/20/16 16:12 11/20/16 16:12 Internal Medicine: Result - Labs CBC & Chem 7: 11/20/16 02:59 11/20/16 02:59 Labs: Short CBC 11/20/16 Range/Units 02:59 WBC 6.4 (4.3-11.1) K/mcL Hgb 13.4 (11.5-15.4) g/dL Hct 44.8 (35.3-44.9) % Plt Count 193 (140-400) K/mcL Neutrophils # 4.7 (1.6-8.9) K/mcL BMP 11/20/16 02:59 Sodium 139 Potassium 3.6 Chloride 97 L Carbon Dioxide 32 H BUN 16 Creatinine 0.82 Glucose 252 H Calcium 9.1 Liver Function 11/20/16 Range/Units 02:59 Total Bilirubin 0.7 (0.2-1.2) mg/dL AST 11 (5-34) Units/L ALT < 6 (0-55) Units/L Alkaline Phosphatase 96 (38-126) Units/L Albumin 2.8 L (3.5-5.0) g/dL - Attending Attestation I examined this patient and my medical decision-making was reviewed with the DRY END OPERATOR/PA/Advanced Practice Nurse/Resident Physician. I agree with the documented findings, disposition and treatment plan as described except to the extent set forth below.
[2016-11-20] MEDS: Nicotine 21 MG PATCH.TD24 TD SCH (21:09)
[2016-11-21] MEDS: ceFAZolin 1,000 MG in D5% in Water (Mini-Bag+) 100 ML IVPB SCH ×3 (01:20→18:01)
[2016-11-21] MEDS: *HR* Heparin 5,000 UNIT/ML VIAL SQ SCH ×3 (01:21→17:31)
[2016-11-21] MEDS: Albuterol 2.5 MG/3 ML NEBULIZER IH SCH ×3 (03:51→15:59)
[2016-11-21] MEDS: Ipratropium/Albuterol Neb 3 ML IH SCH ×4 (04:18→21:07)
[2016-11-21 05:13] LABS: Basophils % 0.8 %; Segmented Neutrophils % 62.7 %
[2016-11-21 05:16] LABS: Basophils # 0.1 K/mcL (0.0-0.2); Eosinophils # 0.2 K/mcL (0.0-0.6); Eosinophils % 2.9 %; Hematocrit 48.2 % (35.3-44.9); Hemoglobin 14.4 g/dL (11.5-15.4); Immature Granulocytes % 0.4 % (0-4); Immature Platelets 6.3 % (1.1-6.1); Mean Corpuscular HGB Conc 29.9 g/dL (31.6-35.5); Mean Corpuscular Hemoglobin 23.4 pg (28.0-33.3); Mean Corpuscular Volume 78.4 fL (83.0-100.0); Mean Platelet Volume 11.4 fL (9.4-12.4); Monocytes # 1.1 K/mcL (0.0-1.3); Monocytes % 14.2 %; Neutrophils # 4.8 K/mcL (1.6-8.9); Platelet Count 258 K/mcL (140-400); Red Blood Count 6.15 M/mcL (3.82-4.97); Red Cell Distribution Width 21.1 % (11.5-14.5)
[2016-11-21 05:32] LABS: BUN/Creatinine Ratio 26 (6-26); Blood Urea Nitrogen 18 mg/dL (7-20); Calcium 9.8 mg/dL (8.6-10.8); Carbon Dioxide 32 mEq/L (19-29); Chloride 98 mEq/L (98-109); Osmolality,Calculated 291 (280-300); Potassium 3.5 mEq/L (3.5-4.5); Sodium 141 mEq/L (136-145); eGFR For African Americans > 60 (> 60); eGFR For Non-African Americans > 60 (> 60)
[2016-11-21 05:34] LABS: Glucose 40 mg/dL (70-99)
[2016-11-21 05:36] LABS: Lymphocytes # 1.4 K/mcL (0.6-4.6)
[2016-11-21 06:10] LABS: Large Platelets Present (Not Present); Platelet Estimate Normal (Normal)
--- NOTE | 2016-11-21 08:08 | Discharge Summary ---
<Rasta Cole - Last Filed: 11/21/16 14:56> Date of Encounter: 11/21/16 Time of Encounter: 07:50 - Discharge Diagnosis (1) Acute exacerbation of CHF (congestive heart failure) Priority: Primary Status: Acute Qualifiers: Congestive heart failure type: diastolic Qualified Code(s): I50.33 - Acute on chronic diastolic (congestive) heart failure (2) Insulin dependent diabetes mellitus Priority: Secondary Status: Chronic (3) Cellulitis Priority: Secondary Status: Acute Qualifiers: Site of cellulitis: trunk Site of cellulitis of trunk: abdominal wall Qualified Code(s): L03.311 - Cellulitis of abdominal wall (4) COPD (chronic obstructive pulmonary disease) Priority: Secondary Status: Chronic Qualifiers: COPD type: emphysema Emphysema type: unspecified Qualified Code(s): J43.9 - Emphysema, unspecified - Discharge Medications Prescriptions: Amoxicillin/Clavulanate [Augmentin] 875 mg PO BIDWM #10 tablet Insulin DETEMIR [Levemir] 50 unit SQ BID 30 Days Home Medications: Aspirin Enteric Coated [Aspirin EC] 81 mg PO DAILY 06/30/15 [History] Atorvastatin Calcium [Lipitor] 80 mg PO DAILY 06/30/15 [History] Budesonide/Formoterol 160/4.5 [Symbicort] 2 puff IH BID 06/30/15 [History] Fluticasone Propionate Nasal [Flonase] 50 mcg NS DAILY 06/30/15 [History] Insulin ASPART [NovoLOG] 20 unit SQ TIDWM 06/30/15 [History] Montelukast [Singulair] 10 mg PO DAILY 06/30/15 [History] Pregabalin [Lyrica] 100 mg PO TID 06/30/15 [History] Tiotropium [Spiriva] 18 mcg IH DAILY 06/30/15 [History] Citalopram [CeleXA] 40 mg PO DAILY 08/09/15 [History] Albuterol Neb [Proventil Neb] 2.5 mg IH TID 04/17/16 [History] Albuterol Sulfate [Albuterol Inhaler] 2 puff IH Q4H PRN 04/17/16 [History] Loratadine [Claritin] 10 mg PO DAILY 04/17/16 [History] Metformin HCl [Metformin HCl ER] 1,000 mg PO BID 04/17/16 [History] Metoprolol [Lopressor] 25 mg PO BID 04/17/16 [History] Oxygen 3 l NS AD 04/17/16 [History] Pantoprazole Sodium [Protonix] 40 mg PO DAILY 04/17/16 [History] Potassium Chloride [K-Tab ER] 20 meq PO DAILY 04/17/16 [History] Lipase/Protease/Amylase [Zenpep Dr 40,000 Units Capsule] 1 cap PO TIDWM [History] Losartan Potassium [Cozaar] 50 mg PO DAILY 08/21/16 [History] Oxybutynin Chloride [Ditropan Xl] 10 mg PO DAILY 08/21/16 [History] SUMAtriptan [Imitrex] 50 mg PO AD PRN 08/21/16 [History] Azithromycin [Zithromax] 250 mg PO DAILY #4 tablet 08/22/16 [Rx] Furosemide [Lasix] 20 mg PO BID 11/14/16 [History] Ipratropium/Albuterol Neb [Duoneb] 3 ml IH Q6HR 11/14/16 [History] Isosorbide MONOnitrate (24 HR) [Imdur] 30 mg PO DAILY 11/14/16 [History] Amoxicillin/Clavulanate [Augmentin] 875 mg PO BIDWM #10 tablet 11/21/16 [Rx] Insulin DETEMIR [Levemir] 50 unit SQ BID 30 Days 11/21/16 [Rx] Allergies/Adverse Reactions: Allergies amylase [From Creon] Adverse Reaction (Verified 11/14/16 23:28) Diarrhea estrogens, conjugated [From Premarin] Adverse Reaction (Verified 08/21/16 12:58) Anxiety hydrocodone [From Vicodin] Adverse Reaction (Verified 08/21/16 12:58) Anxiety lipase [From Creon] Adverse Reaction (Verified 11/14/16 23:28) Diarrhea metronidazole [From Flagyl] Adverse Reaction (Verified 11/14/16 23:28) See Comments YEAST INFECTION protease [From Creon] Adverse Reaction (Verified 11/14/16 23:28) Diarrhea Tetracycline Adverse Reaction (Verified 08/21/16 12:58) Anxiety tramadol [From Ultram] Adverse Reaction (Verified 11/14/16 23:28) Muscle Pain Date of admission: 11/14/16 22:55 Primary care physician: Iliana Almaguer MD Consults: 11/15/16 10:57 Consult to Trampoline Team Coach [CONS] Routine Reason for SW Consult: home O2 financial problems 11/17/16 08:52 Consult to Occupational Therapy [CONS] Routine Comment: Evaluate, develop and implement POC Consult to Physical Therapy [CONS] Routine Comment: Evaluate, develop and implement POC Discharging clinician: Edwardo Minor Anticipated date of discharge: 11/21/16 - Patient Status Disposition: Home Health Service Condition: Fair Functional capacity at discharge: uses cane/walker Overall status at discharge: patient is progressing back to baseline - Discharge Instructions Follow Up With: Paulette De Anda DO [Resident] - 11/27/16 3:15 pm Additional Instructions: Please follow up with your PCP as scheduled - Diet and Activity Activity: wear oxygen at night (and as needed) Diet: diabetic diet Hospital course: Ms. Alanis is a 51 year old female presented to the emergency department on November 14 with shortness of breath. She also complained of abdominal and bilateral lateral lower extremity swelling and worsening over the past several days. She does have history of diastolic CHF and had been on Lasix 40 mg 3 times a day. She did have an echocardiogram performed one month ago that showed EF of 70% with moderate left ventricular diastolic dysfunction. Upon admission, patient received IV Lasix for aggressive diuresis and received scheduled breathing treatments and improved clinically each day. She did have right-sided abdominal cellulitis with open wound initially. She was started on IV cefazolin and her cellulitis significantly improved. Her white count remained within normal limits during her stay and she did not appear septic. Today patient has no complaints of breathing and denies any chest pain, nausea, vomiting, diarrhea, fevers. Patient was concerned about her oxygen supply at home as she preferred switching to [facility] upon discharge. She already has a private home health set up. She will be going home with 5 days of Augmentin to treat her cellulitis and have her Levemir dose cut in half to 50 units twice a day as she had episodes of hypoglycemia during her hospital stay. She is to follow-up with her primary care physician within one week to adjust her diabetes medications. - Time Spent with Patient Total time spent providing and/or coordinating discharge services: Greater than 30 minutes - Constitutional Vitals: Temp Pulse Resp BP Pulse Ox 98.2 F 77 16 149/79 95 11/21/16 07:10 11/21/16 07:10 11/21/16 07:10 11/21/16 07:10 11/21/16 07:10 General appearance: Present: cooperative, morbidly obese, pleasant, no acute distress, answers questions appropriately - Head Head exam: Present: atraumatic, normocephalic - Eye Eye exam: Present: PERRL, conjuntiva pink, sclera anicteric - Neck Neck exam general surgery: Present: supple, trachea midline. Absent: lymphadenopathy - Respiratory Respiratory exam: Present: rhonchi. Absent: accessory muscle use, rales, wheezes - Cardiovascular Cardiovascular exam: Present: RRR, +S1, +S2. Absent: diastolic murmur, gallop, rubs, systolic murmur - GI/Abdominal GI/Abdominal exam: Present: normal bowel sounds, soft, no peritoneal signs. Absent: distended, tenderness - Extremities Exam Extremities exam: Present: pedal edema (trace), warm, radial pulses palpable and symetrical. Absent: calf tenderness, cyanotic - Neurological Exam Neurological exam: Present: alert, no focal deficits. Absent: facial droop, speech deficit - Skin Skin exam: Present: dry, intact <Mily,Edwardo P - Last Filed: 11/21/16 16:44> Date of Encounter: 11/21/16 - Discharge Diagnosis (1) Acute exacerbation of CHF (congestive heart failure) Status: Acute Qualifiers: Congestive heart failure type: diastolic Qualified Code(s): I50.33 - Acute on chronic diastolic (congestive) heart failure (2) Cellulitis Status: Acute Qualifiers: Site of cellulitis: trunk Site of cellulitis of trunk: abdominal wall Qualified Code(s): L03.311 - Cellulitis of abdominal wall (3) COPD (chronic obstructive pulmonary disease) Status: Chronic Qualifiers: COPD type: emphysema Emphysema type: unspecified Qualified Code(s): J43.9 - Emphysema, unspecified (4) Diabetes mellitus Status: Chronic Qualifiers: Diabetes mellitus type: other specified (including KOJO) Diabetes mellitus complication status: with unspecified complications Diabetes mellitus technician terminal and repeater insulin use: with technician terminal and repeater use Qualified Code(s): E13.8 - Other specified diabetes mellitus with unspecified complications; Z79.4 - technician terminal and repeater ( current) use of insulin (5) Hypomagnesemia Status: Acute (6) DVT prophylaxis Status: Acute Date of admission: 11/14/16 22:55 Primary care physician: Iliana Almaguer MD Consults: 11/15/16 10:57 Consult to Trampoline Team Coach [CONS] Routine Reason for SW Consult: home O2 financial problems 11/17/16 08:52 Consult to Occupational Therapy [CONS] Routine Comment: Evaluate, develop and implement POC Consult to Physical Therapy [CONS] Routine Comment: Evaluate, develop and implement POC Hospital course: Ms. Alanis is a 51 year old female - Time Spent with Patient Total time spent providing and/or coordinating discharge services: - Constitutional Vitals: Temp Pulse Resp BP Pulse Ox 98.2 F 77 22 149/79 98 11/21/16 07:10 11/21/16 07:10 11/21/16 10:47 11/21/16 07:10 11/21/16 10:47 - Attending Attestation I examined this patient and my medical decision-making was reviewed with the [employer] HCM CONSULTANT/PA/Advanced Practice Nurse/Resident Physician. I agree with the documented findings, disposition and treatment plan as described except to the extent set forth below.
[2016-11-21] MEDS: Tiotropium 18 MCG inhalation IH SCH (08:17)
[2016-11-21] MEDS: Aspirin Enteric Coated 81 MG Tablet PO SCH (10:14)
[2016-11-21] MEDS: Isosorbide MONOnitrate (24 HR) 30 MG TAB.ER.24H PO SCH (10:15)
[2016-11-21] MEDS: Pregabalin 50 MG CAPSULE PO SCH ×3 (10:16→21:50)
[2016-11-21] MEDS: Furosemide 40 MG/4 ML VIAL IV SCH ×2 (10:18→21:51)
[2016-11-21] MEDS: Insulin LISPRO 300 UNITS/3 ML VIAL SQ SCH ×6 (10:18→18:02)
[2016-11-21] MEDS: Insulin DETEMIR 100 UNIT/ML X5UNITS SQ SCH ×2 (10:25→21:51)
[2016-11-21] MEDS: Fluticasone Propionate Nasal 50 MCG/SPRAY BOTTLE NS SCH (10:30)
[2016-11-21] MEDS: Budesonide/Formoterol 160/4.5 MDI IH SCH ×2 (10:47→20:00)
[2016-11-21] MEDS: Acetaminophen 325 MG TABLET PO PRN (18:00)
[2016-11-21] MEDS: Nicotine 21 MG PATCH.TD24 TD SCH (21:50)
[2016-11-22] MEDS: Insulin LISPRO 300 UNITS/3 ML VIAL SQ SCH ×3 (00:28→09:56)
[2016-11-22] MEDS: *HR* Heparin 5,000 UNIT/ML VIAL SQ SCH ×2 (00:32→09:43)
[2016-11-22] MEDS: ceFAZolin 1,000 MG in D5% in Water (Mini-Bag+) 100 ML IVPB SCH ×2 (00:33→09:44)
[2016-11-22] MEDS: Albuterol 2.5 MG/3 ML NEBULIZER IH SCH (02:34)
[2016-11-22] MEDS: Ipratropium/Albuterol Neb 3 ML IH SCH (03:41)
[2016-11-22 07:47] VITALS: BP 142/92
[2016-11-22] MEDS: Furosemide 40 MG/4 ML VIAL IV SCH (09:42)
[2016-11-22] MEDS: Isosorbide MONOnitrate (24 HR) 30 MG TAB.ER.24H PO SCH (09:43)
[2016-11-22] MEDS: Pregabalin 50 MG CAPSULE PO SCH (09:43)
[2016-11-22] MEDS: Aspirin Enteric Coated 81 MG Tablet PO SCH (09:56)
[2016-11-22] MEDS: Fluticasone Propionate Nasal 50 MCG/SPRAY BOTTLE NS SCH (09:57)
[2016-11-22] MEDS: Insulin DETEMIR 100 UNIT/ML X5UNITS SQ SCH (09:58)
== END 2016-11-22 11:03 | disposition home health service (06) ==
LOC: EMEROO 19:25 → 2NENU 19:25
PROVIDERS: ADMIT Internal Medicine; ATTEND Internal Medicine

== ENCOUNTER 2017-02-12 09:32 | Observation (INO) ==
[2017-02-12] MEDS ORDERED: Furosemide 40 MG/4 ML VIAL IVP ONE (09:40)
[2017-02-12 10:20] LABS: Eosinophils % 0.8 %; Hemoglobin 11.7 g/dL (11.5-15.4); Immature Granulocytes % 0.3 % (0-4); Mean Corpuscular HGB Conc 29.3 g/dL (31.6-35.5); Mean Corpuscular Hemoglobin 21.5 pg (28.0-33.3); Mean Corpuscular Volume 73.5 fL (83.0-100.0); Red Blood Count 5.44 M/mcL (3.82-4.97)
[2017-02-12 10:22] LABS: Basophils # 0.1 K/mcL (0.0-0.2); Basophils % 0.7 %; Eosinophils # 0.1 K/mcL (0.0-0.6); Immature Platelets 4.9 % (1.1-6.1); Lymphocytes # 0.9 K/mcL (0.6-4.6); Lymphocytes % 10.6 %; Monocytes # 0.9 K/mcL (0.0-1.3); Monocytes % 9.9 %; Platelet Count 158 K/mcL (140-400); Red Cell Distribution Width 22.2 % (11.5-14.5); Segmented Neutrophils % 77.7 %
[2017-02-12 10:24] LABS: Neutrophils # 6.8 K/mcL (1.6-8.9)
[2017-02-12 10:28] LABS: INR 1.7
[2017-02-12] MEDS ORDERED: *HR* Morphine 2 MG/ML SYRINGE IVP ONE (10:29)
[2017-02-12] MEDS ORDERED: Ondansetron 4 MG/2 ML VIAL IVP ONE (10:29)
[2017-02-12 10:30] LABS: Prothrombin Time 18.1 Seconds (9.4-12.1)
[2017-02-12 10:31] LABS: Activated Partial Thrombo Time 34.6 Seconds (26.0-36.0)
[2017-02-12 10:33] LABS: Bilirubin,Urine Negative (Negative); Blood,Urine Negative (Negative); Clarity,Urine Clear (Clear); Color,Urine Yellow (Yellow); Glucose,Urine (UA) Normal (Normal); Ketones,Urine Negative (Negative); Leukocyte Esterase,Urine Negative (Negative); Nitrite,Urine Negative (Negative); PH,Urine 5.5 pH Units (5.0-8.0); Protein,Urine Negative (Neg-Trace); Specific Gravity,Urine 1.017 (1.010-1.025); Urobilinogen,Urine Normal (Normal)
[2017-02-12 10:37] LABS: Alanine Aminotransferase 15 Units/L (0-55); Albumin 2.7 g/dL (3.5-5.0); Albumin/Globulin Ratio 0.9 (1.1-2.2); Alkaline Phosphatase 127 Units/L (38-126); Aspartate Amino Transferase 21 Units/L (5-34); BUN/Creatinine Ratio 22 (6-26); Bilirubin,Direct 0.3 mg/dL (0.0-0.5); Bilirubin,Indirect 0.4 mg/dL (0.0-1.2); Bilirubin,Total 0.7 mg/dL (0.2-1.2); Blood Urea Nitrogen 21 mg/dL (7-20); Calcium 8.5 mg/dL (8.6-10.8); Carbon Dioxide 21 mEq/L (19-29); Chloride 101 mEq/L (98-109); Glucose 156 mg/dL (70-99); Osmolality,Calculated 280 (280-300); Potassium 4.5 mEq/L (3.5-4.5); Sodium 132 mEq/L (136-145); Total Protein 5.7 g/dL (6.0-8.3); eGFR For African Americans > 60 (> 60); eGFR For Non-African Americans > 60 (> 60)
--- NOTE | 2017-02-12 10:48 | Emergency Department Note ---
Disposition Clinical Impression: Hyponatremia, Acute electrocardiogram changes Congestive heart failure Qualifiers: Congestive heart failure type: diastolic Congestive heart failure chronicity: acute on chronic Qualified Code(s): I50.33 - Acute on chronic diastolic ( congestive) heart failure Ascites Qualifiers: Ascites type: other type Qualified Code(s): R18.8 - Other ascites Disposition: Admitted As Inpatient Condition: Fair Referrals: Iliana Almaguer MD [Primary Care Provider] - Forms: ED Satisfaction Letter SOB HPI - General Chief Complaint: ED Shortness of Breath/Dyspnea Stated Complaint: CARMEN Time Seen by Provider: 02/12/17 09:38 Source: patient, EMS Mode of arrival: EMS Limitations: physical limitation Nursing Notes Reviewed: Yes Vital Signs Reviewed: Yes - History of Present Illness Pt Subjective Complaint: shortness of breath Onset (ago): day(s) Context: other ("Heart failure is causing me to swell all over and feel short of breath") Severity: moderate Consistency/Duration: constant Improves with: nothing Worsens with: lying flat, exertion Known history of: COPD, asthma, congestive heart failure, diabetes Associated symptoms: Reports: cough Treatment prior to arrival: oxygen Cough present: Yes Cough Description: Voluntary, Moist, Loose Cough Frequency: Intermittent Sputum production: No - Related Data Home oxygen amount: 4 liters Home Medications Medication Instructions Recorded Confirmed Aspirin Enteric Coated [Aspirin EC] 81 mg PO DAILY 06/30/15 11/14/16 Atorvastatin Calcium [Lipitor] 80 mg PO DAILY 06/30/15 11/14/16 Budesonide/Formoterol 160/4.5 2 puff IH BID 06/30/15 11/14/16 [Symbicort] Fluticasone Propionate Nasal 50 mcg NS DAILY 06/30/15 11/14/16 [Flonase] Insulin ASPART [NovoLOG] 20 unit SQ TIDWM 06/30/15 11/14/16 Montelukast [Singulair] 10 mg PO DAILY 06/30/15 11/14/16 Pregabalin [Lyrica] 100 mg PO TID 06/30/15 11/14/16 Tiotropium [Spiriva] 18 mcg IH DAILY 06/30/15 11/14/16 Citalopram [CeleXA] 40 mg PO DAILY 08/09/15 11/14/16 Albuterol Neb [Proventil Neb] 2.5 mg IH TID 04/17/16 11/14/16 Albuterol Sulfate [Albuterol 2 puff IH Q4H PRN 04/17/16 11/14/16 Inhaler] Loratadine [Claritin] 10 mg PO DAILY 04/17/16 11/14/16 Metformin HCl [Metformin HCl ER] 1,000 mg PO BID 04/17/16 11/14/16 Metoprolol [Lopressor] 25 mg PO BID 04/17/16 11/14/16 Oxygen 3 l NS AD 04/17/16 11/14/16 Pantoprazole Sodium [Protonix] 40 mg PO DAILY 04/17/16 11/14/16 Potassium Chloride [K-Tab ER] 20 meq PO DAILY 04/17/16 11/14/16 Lipase/Protease/Amylase [Zenpep Dr 1 cap PO TIDWM 08/21/16 11/14/16 40,000 Units Capsule] Losartan Potassium [Cozaar] 50 mg PO DAILY 08/21/16 11/14/16 Oxybutynin Chloride [Ditropan Xl] 10 mg PO DAILY 08/21/16 11/14/16 SUMAtriptan [Imitrex] 50 mg PO AD PRN 08/21/16 11/14/16 Furosemide [Lasix] 20 mg PO BID 11/14/16 11/14/16 Ipratropium/Albuterol Neb [Duoneb] 3 ml IH Q6HR 11/14/16 11/14/16 Isosorbide MONOnitrate (24 HR) 30 mg PO DAILY 11/14/16 11/14/16 [Imdur] Previous Rx's Medication Instructions Recorded Azithromycin [Zithromax] 250 mg PO DAILY #4 tablet 08/22/16 Amoxicillin/Clavulanate [Augmentin] 875 mg PO BIDWM #10 tablet 11/21/16 Insulin DETEMIR [Levemir] 50 unit SQ BID 30 Days 11/21/16 Allergies Allergy/AdvReac Type Severity Reaction Status Date / Time amylase [From Creon] AdvReac Diarrhea Verified 02/12/17 09:36 estrogens, conjugated AdvReac Anxiety Verified 02/12/17 09:36 [From Premarin] hydrocodone [From Vicodin] AdvReac Anxiety Verified 02/12/17 09:36 lipase [From Creon] AdvReac Diarrhea Verified 02/12/17 09:36 metronidazole [From Flagyl] AdvReac See Verified 02/12/17 09:36 Comments protease [From Creon] AdvReac Diarrhea Verified 02/12/17 09:36 Tetracycline AdvReac Anxiety Verified 02/12/17 09:36 tramadol [From Ultram] AdvReac Muscle Pain Verified 02/12/17 09:36 All systems ED: reviewed and negative except as stated. Constitutional: Denies: fever, chills, weakness, weight change Cardiovascular: Reports: dyspnea on exertion, orthopnea, edema. Denies: chest pain, palpitations, syncope Respiratory: Reports: cough, dyspnea. Denies: wheezes, hemoptysis, stridor, sputum production Gastrointestinal: Reports: abdominal pain (Tightness from swelling). Denies: nausea, vomiting, diarrhea, constipation Genitourinary: Denies: urgency, dysuria, frequency, hematuria Musculoskeletal: Denies: back pain, joint swelling Neurological: Denies: weakness Hematological/Lymphatic: Denies: easy bleeding, easy bruising Allergic/Immunologic: Denies: facial swelling Past Medical History - Past Medical History Attestation: Yes The following information was validated with the patient. Source: patient Medical history: Reports: arthritis, asthma, CHF, COPD, diabetes, hyperlipidemia , hypertension, kidney stones, other Surgical history: Reports: cholecystectomy, other Psychiatric history: Reports: depression DOVETAIL MACHINE OPERATOR history: Reports: no DOVETAIL MACHINE OPERATOR history, 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 - Social History Smoking Status: Current every day smoker Smokeless Tobacco Status: No Alcohol use: Reports: none Drug use: Reports: none Physical Exam - General Limitations: no limitations, physical limitation General appearance: alert, in no apparent distress - Head Head exam: atraumatic, normocephalic, normal inspection - Eye Eye exam: Present: normal appearance, PERRL, EOMI. Absent: scleral icterus, conjunctival injection, periorbital swelling - ENT ENT exam: mucous membranes moist - Neck Neck exam: Present: normal inspection, full ROM, trachea midline. Absent: tenderness, meningismus - Chest Chest inspection: Present: normal inspection, symmetric chest wall rise. Absent : tenderness - Respiratory Respiratory exam: Present: other (Rales bilateral bases). Absent: normal lung sounds bilaterally, respiratory distress, wheezes, stridor, accessory muscle use , prolonged expiratory phase - Cardiovascular Cardiovascular exam: Present: regular rate, normal rhythm, normal heart sounds - Abdominal Exam Abdominal exam: Present: soft, Non-Tender, distention, diminished bowel sounds, ascites. Absent: guarding, rebound, rigidity, organomegaly, mass, bruit - Extremities Exam Extremities exam: Present: full ROM, tenderness (Mild bilateral lower legs anteriorly), normal capillary refill, pedal edema (Bilateral feet to mid thigh. 2+ pitting). Absent: joint swelling, calf tenderness - Back Exam Back exam: Present: normal inspection - Neurological Exam Neurological exam: Present: alert, oriented X3, CN II-XII intact, normal gait - Psychiatric Psychiatric exam: Present: normal affect, normal mood - Skin Skin exam: Present: warm, dry, intact, normal color Course Course Narrative: Patient is fluid overloaded. She is feeling short of breath. When she called the ambulance. They registered an oxygen saturation of 89% on her 4 L of home oxygen. She was tachypneic and feeling short of breath at the time. She is feeling better now. She is 97% on a nasal cannula and is able to speak in complete sentences without stopping to take a deep breath. She complains of tightness in her legs and abdomen. Due to the fluid. She has anasarca. She has rales on auscultation. Labs and x-ray have been ordered as well as IV Lasix. - Reevaluation(s) Reevaluation #1: Patient is feeling a little better and has gotten up to urinate twice. Vitals are stable. Blood pressure had decreased transiently, but is now back to normal. Time: 11:43 Vital Signs Temperature 98.0 F 02/12/17 09:38 Pulse Rate 68 02/12/17 09:38 Respiratory Rate 17 02/12/17 09:38 Blood Pressure 117/75 02/12/17 09:38 O2 Sat by Pulse Oximetry 97 02/12/17 09:38 Temperature 98.0 F 02/12/17 09:38 Pulse Rate 63 02/12/17 10:25 Respiratory Rate 18 02/12/17 10:25 Blood Pressure 117/79 02/12/17 10:25 O2 Sat by Pulse Oximetry 96 02/12/17 10:25 Oxygen Delivery Oxygen Delivery Nasal Cannula Shortness of Breath/Dyspnea - Medical Records Medical records reviewed: Yes I reviewed the patient's medical records. - Lab Data Lab results reviewed: Yes I reviewed the patient's lab results. Result diagrams: 02/12/17 10:13 02/12/17 10:13 Lab Results 02/12/17 02/12/17 02/12/17 Range/Units 10:11 10:13 10:13 WBC 8.7 (4.3-11.1) K/mcL RBC 5.44 H (3.82-4.97) M/mcL Hgb 11.7 (11.5-15.4) g/dL Hct 40.0 (35.3-44.9) % MCV 73.5 L (83.0-100.0) fL MCH 21.5 L (28.0-33.3) pg MCHC 29.3 L (31.6-35.5) g/dL RDW 22.2 H (11.5-14.5) % Plt Count 158 (140-400) K/mcL Immature Gran % 0.3 (0-4) % Seg Neutrophils % 77.7 % Lymphocytes % 10.6 % Monocytes % 9.9 % Eosinophils % 0.8 % Basophils % 0.7 % Neutrophils # 6.8 (1.6-8.9) K/mcL Lymphocytes # 0.9 (0.6-4.6) K/mcL Monocytes # 0.9 (0.0-1.3) K/mcL Eosinophils # 0.1 (0.0-0.6) K/mcL Basophils # 0.1 (0.0-0.2) K/mcL Immature Plt Fraction 4.9 (1.1-6.1) % PT 18.1 H (9.4-12.1) Seconds INR 1.7 APTT 34.6 (26.0-36.0) Seconds Sodium (136-145) mEq/L Potassium (3.5-4.5) mEq/L Chloride (98-109) mEq/L Carbon Dioxide (19-29) mEq/L BUN (7-20) mg/dL Creatinine (0.57-1.11) mg/dL Est GFR ( Amer) (> 60) Est GFR (Non-Af Amer) (> 60) BUN/Creatinine Ratio (6-26) Glucose (70-99) mg/dL Calculated Osmolality (280-300) Calcium (8.6-10.8) mg/dL Total Bilirubin (0.2-1.2) mg/dL Direct Bilirubin (0.0-0.5) mg/dL Indirect Bilirubin (0.0-1.2) mg/dL AST (5-34) Units/L ALT (0-55) Units/L Alkaline Phosphatase (38-126) Units/L Serum Total Protein (6.0-8.3) g/dL Albumin (3.5-5.0) g/dL Globulin (2.4-3.5) g/dL Albumin/Globulin Ratio (1.1-2.2) Urine Color Yellow (Yellow) Urine Clarity Clear (Clear) Urine pH 5.5 (5.0-8.0) pH Units Ur Specific [place] 1.017 (1.010-1.025) Urine Protein Negative (Neg-Trace) mg/dL Urine Glucose (UA) Normal (Normal) mg/dL Urine Ketones Negative (Negative) mg/dL Urine Blood Negative (Negative) Urine Nitrite Negative (Negative) Urine Bilirubin Negative (Negative) Urine Urobilinogen Normal (Normal) mg/dL Ur Leukocyte Esterase Negative (Negative) Ur Culture Indicated? NO (NO) 02/12/17 Range/Units 10:13 WBC (4.3-11.1) K/mcL RBC (3.82-4.97) M/mcL Hgb (11.5-15.4) g/dL Hct (35.3-44.9) % MCV (83.0-100.0) fL MCH (28.0-33.3) pg MCHC (31.6-35.5) g/dL RDW (11.5-14.5) % Plt Count (140-400) K/mcL Immature Gran % (0-4) % Seg Neutrophils % % Lymphocytes % % Monocytes % % Eosinophils % % Basophils % % Neutrophils # (1.6-8.9) K/mcL Lymphocytes # (0.6-4.6) K/mcL Monocytes # (0.0-1.3) K/mcL Eosinophils # (0.0-0.6) K/mcL Basophils # (0.0-0.2) K/mcL Immature Plt Fraction (1.1-6.1) % PT (9.4-12.1) Seconds INR APTT (26.0-36.0) Seconds Sodium 132 L (136-145) mEq/L Potassium 4.5 (3.5-4.5) mEq/L Chloride 101 (98-109) mEq/L Carbon Dioxide 21 (19-29) mEq/L BUN 21 H (7-20) mg/dL Creatinine 0.97 (0.57-1.11) mg/dL Est GFR ( Amer) > 60 (> 60) Est GFR (Non-Af Amer) > 60 (> 60) BUN/Creatinine Ratio 22 (6-26) Glucose 156 H (70-99) mg/dL Calculated Osmolality 280 (280-300) Calcium 8.5 L (8.6-10.8) mg/dL Total Bilirubin 0.7 (0.2-1.2) mg/dL Direct Bilirubin 0.3 (0.0-0.5) mg/dL Indirect Bilirubin 0.4 (0.0-1.2) mg/dL AST 21 (5-34) Units/L ALT 15 (0-55) Units/L Alkaline Phosphatase 127 H (38-126) Units/L Serum Total Protein 5.7 L (6.0-8.3) g/dL Albumin 2.7 L (3.5-5.0) g/dL Globulin 3.0 (2.4-3.5) g/dL Albumin/Globulin Ratio 0.9 L (1.1-2.2) Urine Color (Yellow) Urine Clarity (Clear) Urine pH (5.0-8.0) pH Units Ur Specific [place] (1.010-1.025) Urine Protein (Neg-Trace) mg/dL Urine Glucose (UA) (Normal) mg/dL Urine Ketones (Negative) mg/dL Urine Blood (Negative) Urine Nitrite (Negative) Urine Bilirubin (Negative) Urine Urobilinogen (Normal) mg/dL Ur Leukocyte Esterase (Negative) Ur Culture Indicated? (NO) - Radiology Data Radiology results reviewed: Yes I reviewed the patient's radiology results. Chest X-Ray 02/12/17 09:41 IMPRESSION: Cardiomegaly with pulmonary vascular congestion. Chronic right pleural effusion D/ / Spencer Pollack MD / Spencer Pollack MD Interpreting Provider: Spencer Pollack MD - EKG Data EKG attestation: Yes I reviewed and interpreted this EKG. EKG shows normal: Reports: sinus rhythm Rate: Reports: normal Rhythm: Reports: PAC's T wave inversions noted in: Reports: III, v2 When compared to previous EKG there are: changes noted Interpretation: Reports: nonspecific ST-T wave changes
--- NOTE | 2017-02-12 11:15 | Emergency Department Note ---
START Narrative - START START: For this encounter, I have reviewed the VIRTUAL CLASSROOM MANAGER or PA documentation, treatment plan, and medical decision making; and I have had face to face time with this patient. Patient emergency department complaining of shortness of breath. History of CHF and feels that she is full of fluid. Worsening cough over 3 days. On exam she is diminished in her bases with rales. Plan. BNP elevated. Pulmonary edema on chest x-ray. Diuresis and admission.. Dr Bae accepts [phone]
[2017-02-12] MEDS ORDERED: Aspirin 81 MG TAB.CHEW PO ONE (11:48)
[2017-02-12] MEDS ORDERED: Aspirin 81 MG TAB.CHEW ONE (11:51)
[2017-02-12] MEDS ORDERED: Ipratropium/Albuterol Neb 3 ML IH PRN (13:15)
--- NOTE | 2017-02-12 14:57 | Internal Med History&Physical ---
Date of Encounter: 02/12/17 Time of Encounter: 14:52 Assessment and Plan (1) Acute exacerbation of CHF (congestive heart failure) Current visit: Yes Status: Acute Observation. We will place patient in hospital under telemetry. IV Lasix. O2 supplementation. Monitor vital signs closely. Monitor blood pressure closely. Daily weights. Monitor Input and output. 2-D echocardiogram. Trend troponins. Qualifiers: Congestive heart failure type: diastolic Qualified Code(s): I50.33 - Acute on chronic diastolic (congestive) heart failure (2) Congestive heart failure Current visit: Yes Status: Acute Qualifiers: Congestive heart failure type: diastolic Congestive heart failure chronicity: acute on chronic Qualified Code(s): I50.33 - Acute on chronic diastolic (congestive) heart failure (3) COPD (chronic obstructive pulmonary disease) Current visit: Yes Status: Chronic Patient having bilateral wheezing. Not in acute exacerbation of COPD. We will use bronchodilators as needed Qualifiers: COPD type: emphysema Emphysema type: unspecified Qualified Code(s): J43.9 - Emphysema, unspecified (4) Diabetes mellitus Current visit: Yes Status: Chronic Blood sugar is on presentation is 156. Levemir 40 units twice daily. Sliding scale insulin. Monitor blood sugars closely. Diabetic diet. Will adjust insulin regimen based on her blood sugars Qualifiers: Diabetes mellitus type: other specified (including KOJO) Diabetes mellitus complication status: with unspecified complications Diabetes mellitus jail insulin use: with assistant terminal manager use Qualified Code(s): E13.8 - Other specified diabetes mellitus with unspecified complications; Z79.4 - terminal operator ( current) use of insulin Internal Medicine - H&P: HPI Chief complaint: Shortness of breath Admitted From: Emergency Dept Plans for Post Hospital Care: Home History of present illness: Ms. Alanis is a 51 year old female patient with a history of obesity, diastolic congestive heart failure, pulmonary hypertension, diabetes mellitus type 2, hypertension, hyperlipidemia, COPD who presented to the ER with complaints of shortness of breath. Her symptoms have been going on over the past few days. She has been increasingly short of breath especially with minimal exertion. She denies orthopnea. She does did have some palpitations. No chest pain. She does have cough which is chronic. No sputum production. No fever or chills or night sweats. She was admitted here in November with heart failure and was discharged on Lasix. She has been taking the Lasix as prescribed. She does describe some increased swelling in her legs. Echocardiogram in October 2016 showed normal LV systolic function with ejection fraction of 70% with moderate left ventricular diastolic dysfunction. Patient also had moderate pulmonary hypertension with RVSP of 56 mmHg . There were no warts motion abnormalities. Patient also underwent cardiac catheterization in July 2015 which showed moderate atherosclerotic coronary artery disease. Patient did not require stents. Past Med Surg Social Fam HX - Past Medical History Attestation: Yes The following information was validated with the patient. Source: patient Medical history: arthritis, asthma, CHF (Diastolic), COPD, diabetes, hyperlipidemia, hypertension, kidney stones, other Psychiatric history: depression - Past Surgical History Surgical History: cholecystectomy, other - Social History Smoking Status: Current every day smoker Smokeless Tobacco Status: No Alcohol use: none Drug use: none - Family History Father Family Member Ethnicity: Non- Living Status: Still Living Hx Family Cardiac Disorders: Yes (CABG x3, HTN) Hx Family Respiratory Disorders: Yes (COPD) Hx Family Cancer: No Hx Family GI Disorders: No Hx Family Endocrine Disorder: Yes Hx Family Neuromuscular Disorders: No Hx Family Neurologic Disorders: No Hx Family HEENT Disorders: No Hx Family Autoimmune Disorders: No Mother Family Member Ethnicity: Non- Living Status: Still Living Hx Family Cardiac Disorders: Yes Hx Family Respiratory Disorders: No Hx Family Cancer: Yes Hx Family GI Disorders: No Hx Family Endocrine Disorder: Yes Hx Family Neuromuscular Disorders: No Hx Family Neurologic Disorders: No Hx Family HEENT Disorders: No Hx Family Autoimmune Disorders: No Internal Medicine - H&P: Meds Aspirin Enteric Coated [Aspirin EC] 81 mg PO DAILY 06/30/15 [History] Atorvastatin Calcium [Lipitor] 80 mg PO DAILY 06/30/15 [History] Budesonide/Formoterol 160/4.5 [Symbicort] 2 puff IH BID 06/30/15 [History] Fluticasone Propionate Nasal [Flonase] 50 mcg NS DAILY 06/30/15 [History] Insulin ASPART [NovoLOG] 20 unit SQ TIDWM 06/30/15 [History] Montelukast [Singulair] 10 mg PO DAILY 06/30/15 [History] Pregabalin [Lyrica] 100 mg PO TID 06/30/15 [History] Tiotropium [Spiriva] 18 mcg IH DAILY 06/30/15 [History] Citalopram [CeleXA] 40 mg PO DAILY 08/09/15 [History] Albuterol Neb [Proventil Neb] 2.5 mg IH TID 04/17/16 [History] Albuterol Sulfate [Albuterol Inhaler] 2 puff IH Q4H PRN 04/17/16 [History] Loratadine [Claritin] 10 mg PO DAILY 04/17/16 [History] Metformin HCl [Metformin HCl ER] 1,000 mg PO BID 04/17/16 [History] Metoprolol [Lopressor] 25 mg PO BID 04/17/16 [History] Oxygen 3 l NS AD 04/17/16 [History] Pantoprazole Sodium [Protonix] 40 mg PO DAILY 04/17/16 [History] Potassium Chloride [K-Tab ER] 20 meq PO DAILY 04/17/16 [History] Lipase/Protease/Amylase [Zenpep Dr 40,000 Units Capsule] 1 cap PO TIDWM [History] Losartan Potassium [Cozaar] 50 mg PO DAILY 08/21/16 [History] Oxybutynin Chloride [Ditropan Xl] 10 mg PO DAILY 08/21/16 [History] SUMAtriptan [Imitrex] 50 mg PO AD PRN 08/21/16 [History] Azithromycin [Zithromax] 250 mg PO DAILY #4 tablet 08/22/16 [Rx] Furosemide [Lasix] 20 mg PO BID 11/14/16 [History] Ipratropium/Albuterol Neb [Duoneb] 3 ml IH Q6HR 11/14/16 [History] Isosorbide MONOnitrate (24 HR) [Imdur] 30 mg PO DAILY 11/14/16 [History] Amoxicillin/Clavulanate [Augmentin] 875 mg PO BIDWM #10 tablet 11/21/16 [Rx] Insulin DETEMIR [Levemir] 50 unit SQ BID 30 Days 11/21/16 [Rx] Allergies amylase [From Creon] Adverse Reaction (Verified 02/12/17 09:36) Diarrhea estrogens, conjugated [From Premarin] Adverse Reaction (Verified 02/12/17 09:36) Anxiety hydrocodone [From Vicodin] Adverse Reaction (Verified 02/12/17 09:36) Anxiety lipase [From Creon] Adverse Reaction (Verified 02/12/17 09:36) Diarrhea metronidazole [From Flagyl] Adverse Reaction (Verified 02/12/17 09:36) See Comments YEAST INFECTION protease [From Creon] Adverse Reaction (Verified 02/12/17 09:36) Diarrhea Tetracycline Adverse Reaction (Verified 02/12/17 09:36) Anxiety tramadol [From Ultram] Adverse Reaction (Verified 02/12/17 09:36) Muscle Pain All Systems PM: A 10-system review of systems was performed and is negative for pertinent findings except as documented above in the HPI. - Constitutional Constitutional: no chills, no fever(s), no night sweats - EENT Eyes: no change in vision, no discharge, no pain, no photophobia Ears: no ear discharge, no ear pain, no tinnitus Nose, mouth and throat: no dysphagia, no nasal discharge, no neck pain, no sore throat - Cardiovascular Cardiovascular ROS IM: palpitations, no chest pain, no diaphoresis, no dyspnea, no lightheadedness, no orthopnea, no syncope - Respiratory Respiratory: cough, dyspnea, dyspnea on exertion, no wheezing, no excessive phlegm production - Gastrointestinal Gastrointestinal: no abdominal pain, no diarrhea, no hematemesis, no hematochezia, no melena, no nausea, no vomiting - Genitourinary Genitourinary: no change in urinary stream, no dysuria, no flank pain, no hematuria - Musculoskeletal Musculoskeletal ROS IM: no numbness, no tingling - Integumentary Integumentary IM: no rash, no unusual bruising - Neurological Neurological ROS: no confusion, no convulsions, no focal weakness, no numbness, no tingling, no tremor(s) - Hematologic/Lymphatic Hematologic/Lymphatic: no easy bruising - Constitutional Vitals: Temp Pulse Resp BP Pulse Ox 97.4 F L 64 20 109/66 98 02/12/17 13:11 02/12/17 13:11 02/12/17 13:11 02/12/17 13:11 02/12/17 13:11 General appearance: Present: cooperative, A&O X 3, pleasant, obese, answers questions appropriately - Eye Eye exam: Present: EOMI, PERRL, conjuntiva pink, sclera anicteric - Neck Neck exam general surgery: Present: supple, trachea midline. Absent: lymphadenopathy - Respiratory Respiratory exam: Present: prolonged expiratory phase, wheezes. Absent: accessory muscle use, rales, rhonchi - Cardiovascular Cardiovascular exam: Present: RRR, +S1, +S2. Absent: diastolic murmur, gallop, rubs, systolic murmur Additional comments: Basal crackles - GI/Abdominal GI/Abdominal exam: Present: normal bowel sounds, soft, no peritoneal signs. Absent: distended, tenderness - Extremities Exam Extremities exam: Present: warm, radial pulses palpable and symetrical. Absent : calf tenderness, cyanotic, pedal edema - Neurological Exam Neurological exam: Present: alert, oriented X3, no focal deficits. Absent: facial droop, speech deficit - Skin Skin exam: Present: dry, intact Internal Med - H&P Results - Labs CBC & Chem 7: 02/12/17 10:13 02/12/17 10:13 - EKG Data -: EKG Interpreted by Myself EKG shows normal: sinus rhythm, ST-T waves (Nonspecific ST segment changes) - Impressions Pulmonary congestion on chest x-ray - Attending Attestation This document has been at least partially created by [employer] recognition technology by Dr. Bae. Errors in grammar, wording or other phrases may exist. If errors are found after the documentation is signed, they will be addressed individually in the addendum section of this document when appropriate.
[2017-02-12] MEDS ORDERED: D5% in Water 1,000 ML IVC PRN (14:59)
[2017-02-12] MEDS ORDERED: Dextrose Gel 15 GM PO PRN ×2 (14:59)
[2017-02-12] MEDS ORDERED: *HR* OxyCODONE/APAP 5/325 TABLET PO PRN (17:55)
[2017-02-12] MEDS: Insulin LISPRO 300 UNITS/3 ML VIAL SQ SCH (17:57)
[2017-02-12] MEDS: Nicotine 21 MG PATCH.TD24 TD SCH (18:58)
[2017-02-12] MEDS: Furosemide 40 MG/4 ML VIAL IVP SCH (20:51)
[2017-02-12] MEDS ORDERED: Insulin LISPRO 300 UNITS/3 ML VIAL SQ SCH (21:00)
[2017-02-12] MEDS ORDERED: Insulin DETEMIR 100 UNIT/ML X5UNITS SQ SCH (21:00)
[2017-02-13 02:01] LABS: BUN/Creatinine Ratio 24 (6-26); Blood Urea Nitrogen 25 mg/dL (7-20); Calcium 9.1 mg/dL (8.6-10.8); Carbon Dioxide 23 mEq/L (19-29); Chloride 98 mEq/L (98-109); Chol/HDL Ratio 2.2 (0-4.9); Glucose 56 mg/dL (70-99); HDL Cholesterol 31 mg/dL (40-59); LDL Cholesterol,Calculated 28 mg/dL (0-99); Osmolality,Calculated 280 (280-300); Potassium 4.3 mEq/L (3.5-4.5); Sodium 134 mEq/L (136-145); Triglycerides 52 mg/dL (< 150); eGFR For African Americans > 60 (> 60); eGFR For Non-African Americans 55 (> 60)
[2017-02-13 02:03] LABS: Cholesterol 69 mg/dL (< 200)
[2017-02-13] MEDS: *HR* Dextrose 50 % in Water (Syg) 50 ML SYRINGE IVP PRN ×4 (04:14→08:33)
[2017-02-13 04:49] LABS: Eosinophils % 1.6 %; Red Cell Distribution Width 22.6 % (11.5-14.5)
[2017-02-13 04:51] LABS: Basophils # 0.1 K/mcL (0.0-0.2); Basophils % 0.6 %; Eosinophils # 0.1 K/mcL (0.0-0.6); Hematocrit 47.5 % (35.3-44.9); Immature Granulocytes % 0.5 % (0-4); Immature Platelets 5.7 % (1.1-6.1); Lymphocytes # 1.2 K/mcL (0.6-4.6); Lymphocytes % 13.4 %; Mean Corpuscular HGB Conc 29.5 g/dL (31.6-35.5); Mean Corpuscular Hemoglobin 21.4 pg (28.0-33.3); Mean Corpuscular Volume 72.7 fL (83.0-100.0); Mean Platelet Volume 10.4 fL (9.4-12.4); Monocytes # 0.9 K/mcL (0.0-1.3); Monocytes % 10.6 %; Neutrophils # 6.5 K/mcL (1.6-8.9); Platelet Count 172 K/mcL (140-400); Red Blood Count 6.53 M/mcL (3.82-4.97); Segmented Neutrophils % 73.3 %
[2017-02-13 05:16] LABS: Anisocytosis 2+ (Not Present); Large Platelets Present (Not Present); Platelet Estimate Normal (Normal)
[2017-02-13 05:17] LABS: Microcytosis Present (Not Present); Polychromasia 1+ (Not Present)
--- NOTE | 2017-02-13 09:20 | Electrocardiograph Report ---
[place] [id number] Test Date: 2017-02-12 Pat Name: Milena Alanis Department: 104 Room: 2NE32 Gender: F Applied Psychology Chair: MAYUR : 1965 Requested By: Keya Crabtree Order Number: [id number] Reading MD: Anup Devries MD Measurements Intervals [place] Rate: 62 P: 51 MD: 182 QRS: 103 QRSD: 78 T: 30 QT: 420 QTc: 425 Interpretive Statements SINUS RHYTHM WITH OCCASIONAL SUPRAVENTRICULAR PREMATURE COMPLEXES BORDERLINE RIGHT AXIS DEVIATION POSSIBLE RIGHT VENTRICULAR HYPERTROPHY NONSPECIFIC T-WAVE ABNORMALITY LOW VOLTAGE IN PRECORDIAL LEADS Electronically Signed On 02-13-2017 9:19:36 EDT by Anup Devries MD
[2017-02-13] MEDS: Furosemide 40 MG/4 ML VIAL IVP SCH ×2 (09:49→20:41)
[2017-02-13] MEDS: Aspirin Enteric Coated 81 MG Tablet PO SCH (09:49)
[2017-02-13] MEDS: Isosorbide MONOnitrate (24 HR) 30 MG TAB.ER.24H PO SCH (09:49)
[2017-02-13] MEDS: Insulin LISPRO 300 UNITS/3 ML VIAL SQ SCH ×4 (10:05→20:41)
[2017-02-13] MEDS: Nicotine 21 MG PATCH.TD24 TD SCH (10:05)
--- NOTE | 2017-02-13 11:14 | Internal Med Progress Note ---
<Agustina Mcclelland - Last Filed: 02/13/17 11:10> Date of Encounter: 02/13/17 Time of Encounter: 11:10 - Assessment and plan (1) Acute exacerbation of CHF (congestive heart failure) Current Visit: Yes Status: Acute Assessment and plan: Patieint previously admitted in November 2016 with acute exacerbation of CHF, discharged on lasix. Reports being compliant with lasix at home. Continue diuresis with IV lasix. Strict monitoring of I&O, patient has only had 250 mL urine output recorded since admission Continue daily weights, weight this morning 108.2 kg Continue telemetry Continue home metoprolol, imdur and potassium chloride Qualifiers: Congestive heart failure type: diastolic Qualified Code(s): I50.33 - Acute on chronic diastolic (congestive) heart failure (2) COPD (chronic obstructive pulmonary disease) Current Visit: Yes Status: Chronic Assessment and plan: Chronic.Stable. No current acute exacerbation. Continue bronchodilators as needed Qualifiers: COPD type: emphysema Emphysema type: unspecified Qualified Code(s): J43.9 - Emphysema, unspecified (3) Insulin dependent diabetes mellitus Current Visit: No Status: Chronic Assessment and plan: Stable. Chronic. Patient with history of type 2 diabetes mellitus on insulin pump. Will put in record that patient may use own pump. Pharmacy working to verify settings. Given hypoglycemia, may need to adjust levemir. - Subjective Interval history: 51 year old female who presented to [place] ER with increasing shortness of breath with increasing lower extremity edema. Admitted for acute exacerbation of chronic congestive heart failure, currently undergoing IV diuresis. Patient seen and examined this morning. ONly 250 mL urine recorded over last 24 hours. Patient has a pump for her type 2 diabetes and was hypoglycemic this morning at 56. She states that she feels about the same as when she arrived. She states her breathing is perhaps slightly improved but not much. She does not feel as if the swelling in her lower extremities has improved since admission. She does report being able to get up and use the bedside commode. She is tolerating diet with no nausea or vomiting. She has no additional concerns or complaints at this time. - Constitutional Vitals: Temp Pulse Resp BP Pulse Ox 96.9 F L 57 18 115/73 97 02/13/17 08:28 02/13/17 08:28 02/13/17 08:28 02/13/17 08:28 02/13/17 08:28 General appearance: Present: cooperative, A&O X 3, pleasant, no acute distress, obese, answers questions appropriately - Head Head exam: Present: atraumatic, normocephalic - Eye Eye exam: Present: normal appearance, PERRL, sclera anicteric. Absent: conjunctival injection - ENT ENT exam: Present: mucous membranes moist, normal external ear exam Additional comments: nasal canula in place - Neck Neck exam general surgery: Present: supple, trachea midline - Respiratory Respiratory exam: Present: CTAB, prolonged expiratory phase. Absent: accessory muscle use, rales, respiratory distress, rhonchi, stridor, wheezes - Cardiovascular Cardiovascular exam: Present: RRR, +S1, +S2. Absent: clicks, diastolic murmur, gallop, rubs, systolic murmur - GI/Abdominal GI/Abdominal exam: Present: soft. Absent: distended, guarding, rebound, rigid, tenderness - Extremities Exam Extremities exam: Present: normal capillary refill, warm Additional comments: +3 pitting edema bilateral lower extremities to groin - Psychiatric Psychiatric exam: Present: normal affect, normal mood - Skin Skin exam: Present: dry, intact, warm Internal Medicine: Result - Labs CBC & Chem 7: 02/13/17 04:39 02/13/17 00:57 Labs: Short CBC 02/13/17 Range/Units 04:39 WBC 8.8 (4.3-11.1) K/mcL Hgb 14.0 D (11.5-15.4) g/dL Hct 47.5 H (35.3-44.9) % Plt Count 172 (140-400) K/mcL Neutrophils # 6.5 (1.6-8.9) K/mcL BMP 02/13/17 00:57 Sodium 134 L Potassium 4.3 Chloride 98 Carbon Dioxide 23 BUN 25 H Creatinine 1.05 Glucose 56 L Calcium 9.1 Cardiac Enzymes 02/12/17 02/13/17 Range/Units 17:24 00:57 Troponin I 0.01 0.01 (0-0.03) ng/mL - ABG Interpretation ABG results: PT/INR, D-dimer PT 18.1 Seconds (9.4-12.1) H 02/12/17 10:13 Consult Discharge Plan - Plan Referrals: Iliana Almaguer MD [Primary Care Provider] - <Edwardo Minor P - Last Filed: 02/13/17 18:22> Date of Encounter: 02/13/17 - Constitutional Vitals: Temp Pulse Resp BP Pulse Ox 97.3 F L 72 16 115/74 97 02/13/17 16:00 02/13/17 16:00 02/13/17 16:00 02/13/17 16:00 02/13/17 16:00 Internal Medicine: Result - Labs CBC & Chem 7: 02/13/17 04:39 02/13/17 00:57 Labs: Short CBC 02/13/17 Range/Units 04:39 WBC 8.8 (4.3-11.1) K/mcL Hgb 14.0 D (11.5-15.4) g/dL Hct 47.5 H (35.3-44.9) % Plt Count 172 (140-400) K/mcL Neutrophils # 6.5 (1.6-8.9) K/mcL BMP 02/13/17 00:57 Sodium 134 L Potassium 4.3 Chloride 98 Carbon Dioxide 23 BUN 25 H Creatinine 1.05 Glucose 56 L Calcium 9.1 Cardiac Enzymes 02/13/17 Range/Units 00:57 Troponin I 0.01 (0-0.03) ng/mL - ABG Interpretation ABG results: PT/INR, D-dimer PT 18.1 Seconds (9.4-12.1) H 02/12/17 10:13 - Attending Attestation I examined this patient and my medical decision-making was reviewed with the RESEARCH RECRUITER/PA/Advanced Practice Nurse/Resident Physician. I agree with the documented findings, disposition and treatment plan as described except to the extent set forth below.
--- NOTE | 2017-02-13 13:18 | ECHO - Doppler Report ---
Echocardiogram Name: Milena Alanis Date of Study: 02/13/2017 Date: 1965 Ht: 63.0 in Medical Record#: [id number] Age: 51 Wt: 238.0 lb Gender: Female BSA: 2.08 Order #: [id number] Location: [facility] Room #: 2NE32 Reading Physician: Aunp Devries MD, [facility] [employer] Depositing Machine Operator: Clarke Chinchilla Ordering Physician: Cecelia Bae MD Primary Physician: Ruchi Almaguer MD Indications: Congestive heart failure Impressions: Normal LV systolic function, LVEF 70%. Mild concentric left ventricular hypertrophy. Moderate left ventricular diastolic dysfunction. Mildly dilated right ventricle with normal systolic function. Moderately dilated left atrium. Mildly dilated right atrium. No significant valvular dysfunction. Mild-moderate pulmonary hypertension. Estimated RVSP = 49 mmHg. Left Ventricular Wall Motion: Rest Echo Findings All wall segments showed normal motion. Findings: Study Quality * Suboptimal echo windows. ECG Findings * Sinus rhythm with PACs. Left Ventricle * Normal LV systolic function, LVEF 70%. * Normal LV chamber size. * Mild concentric left ventricular hypertrophy. * Moderate left ventricular diastolic dysfunction. Right Ventricle * Mildly dilated right ventricle with normal systolic function. Left Atrium * Moderately dilated left atrium. Right Atrium * Mildly dilated right atrium. Aorta * Normally sized aortic root. Pericardium * There is no pericardial effusion present. IVC * The IVC is not well evaluated. Aortic Valve * Trileaflet aortic valve. * Mildly sclerotic aortic valve leaflets. * No aortic stenosis. * No aortic regurgitation. Mitral Valve * Normal mitral valve structure. * No mitral stenosis. * Trace mitral regurgitation. Tricuspid Valve * Normal tricuspid valve structure. * No tricuspid stenosis. * Trace tricuspid regurgitation. * Mild-moderate pulmonary hypertension. Estimated RVSP = 49 mmHg. Pulmonic Valve * Pulmonic valve not well visualized. * No pulmonic stenosis. * Trace pulmonic regurgitation. History Hypertension Diabetes Hypercholesteremia History of Smoking Years 37 Packs 0.5 Congestive Heart Failure 10/18/2016 a Previous Echo was performed. Measurements: BP: 105/ 62 2D Normal Values RVIDd: 4.10 cm IVSd: 1.20 cm 0.6 - 1.0 cm LVIDd: 4.40 cm 3.7 - 5.6 cm LVPWd: 1.20 cm 0.6 - 1.1 cm LVIDs: 2.40 cm 1.5 - 3.6 cm AO: 2.80 cm < 4.0 cm %FS: 45.50 cm >25 % LA volume: 80 Mitral Valve Peak E:.93 m/sec Peak A:.81 m/sec E/A Ratio:1.2 Peak E' Lat Zach:6.34 cm/s Peak E' Med Zach:7.9 cm/s E/E' Lat Ratio:14.7 E/E' Med Ratio:11.8 Tricuspid Valve TV Regurg Peak Grad: 44.00mmHg TV Regurg Peak Zach: 3.32m/sec Updated by Anup Devries MD, [facility] on 02/13/2017 1:12:33 PM electronically signed on 02/13/2017 1:12:59 PM with status of Final Wall Motion Rivas: 1=Normal, 2=Hypokinesis, 3=Akinesis, 4=Dyskinesis, 5=Aneurysmal, 6=Hyperkinetic, X=Not Visualized (Blank)=Missing
[2017-02-13] MEDS ORDERED: Benzonatate 100 MG CAPSULE PO PRN (17:07)
[2017-02-13] MEDS ORDERED: Acetaminophen 325 MG TABLET PO PRN (20:36)
[2017-02-13] MEDS: Insulin DETEMIR 100 UNIT/ML X5UNITS SQ SCH (20:41)
[2017-02-14] MEDS: Aspirin Enteric Coated 81 MG Tablet PO SCH (08:24)
[2017-02-14] MEDS: Furosemide 40 MG/4 ML VIAL IVP SCH ×2 (08:24→21:52)
[2017-02-14] MEDS: Isosorbide MONOnitrate (24 HR) 30 MG TAB.ER.24H PO SCH (08:24)
[2017-02-14] MEDS: Insulin LISPRO 300 UNITS/3 ML VIAL SQ SCH ×7 (08:26→21:52)
[2017-02-14] MEDS: Nicotine 21 MG PATCH.TD24 TD SCH (08:26)
[2017-02-14] MEDS ORDERED: PATIENT TAKING PO SCH (09:00)
--- NOTE | 2017-02-14 09:57 | Internal Med Progress Note ---
<Agustina Mcclelland - Last Filed: 02/14/17 09:52> Date of Encounter: 02/14/17 Time of Encounter: 09:52 - Assessment and plan (1) Acute exacerbation of CHF (congestive heart failure) Current Visit: Yes Status: Acute Assessment and plan: Patieint previously admitted in November 2016 with acute exacerbation of CHF, discharged on lasix. Reports she was switched from lasix to metolazone at home and was on 2.5 mg BID Continue diuresis with IV lasix. Will restart 2.5 mg metolazone. Strict monitoring of I&O, patient has only had 550 mL urine output recorded since admission Continue daily weights, weight this morning 107 kg(down 1.2 kg from admission) Continue telemetry Continue home metoprolol, imdur and potassium chloride Qualifiers: Congestive heart failure type: diastolic Qualified Code(s): I50.33 - Acute on chronic diastolic (congestive) heart failure (2) COPD (chronic obstructive pulmonary disease) Current Visit: Yes Status: Chronic Assessment and plan: Chronic.Stable. No current acute exacerbation. Continue bronchodilators as needed Qualifiers: COPD type: emphysema Emphysema type: unspecified Qualified Code(s): J43.9 - Emphysema, unspecified (3) Insulin dependent diabetes mellitus Current Visit: No Status: Chronic Assessment and plan: Stable. Chronic. Patient with history of type 2 diabetes mellitus on insulin pump. Will discontinue insulin pump while in hospital. Continue levemir and novolog scheduled plus LDISS TID and AHS. Continue to monitor glucose. Given concerns for hypoglycemia previously while on pump, recommend that patient follow up with her practitioner outpatient for consideration of adjustment of her pump. - Subjective Interval history: 51 year old female who presented to [place] ER with increasing shortness of breath with increasing lower extremity edema. Admitted for acute exacerbation of chronic congestive heart failure, currently undergoing IV diuresis. Patient seen and examined this morning. Diuresed 550 mL urine. Patient has removed her insulin pump. She states that she had difficulty sleeping last night. She feels as if the swelling in her lower extremities has improved since admission, is now limited to below her knees and she states she can now bend her legs comfortably. She does report being able to get up and use the bedside commode. She is tolerating diet with no nausea or vomiting. She has no additional concerns or complaints at this time. - Constitutional Vitals: Temp Pulse Resp BP Pulse Ox 96.6 F L 66 18 119/66 95 02/14/17 08:00 02/14/17 08:00 02/14/17 08:00 02/14/17 08:00 02/14/17 08:00 General appearance: Present: cooperative, A&O X 3, pleasant, no acute distress, obese, answers questions appropriately - Head Head exam: Present: atraumatic, normocephalic - Eye Eye exam: Present: normal appearance. Absent: conjunctival injection - ENT ENT exam: Present: mucous membranes moist, normal external ear exam - Neck Neck exam general surgery: Present: supple, trachea midline - Respiratory Respiratory exam: Present: CTAB. Absent: rales, rhonchi, stridor, wheezes - Cardiovascular Cardiovascular exam: Present: RRR, +S1, +S2. Absent: clicks, diastolic murmur, gallop, rubs, systolic murmur - GI/Abdominal GI/Abdominal exam: Present: normal bowel sounds, soft. Absent: distended, guarding, rebound, rigid - Extremities Exam Extremities exam: Present: normal capillary refill, pedal edema (+ 2 pitting edema bilateral lower extremities ), radial pulses palpable and symetrical - Psychiatric Psychiatric exam: Present: normal affect, normal mood - Skin Skin exam: Present: dry, intact, warm Internal Medicine: Result - Labs CBC & Chem 7: 02/13/17 04:39 02/13/17 00:57 - ABG Interpretation ABG results: PT/INR, D-dimer PT 18.1 Seconds (9.4-12.1) H 02/12/17 10:13 Consult Discharge Plan - Plan Referrals: Iliana Almaguer MD [Primary Care Provider] - <Edwardo Minor P - Last Filed: 02/14/17 16:54> Date of Encounter: 02/14/17 - Constitutional Vitals: Temp Pulse Resp BP Pulse Ox 97.8 F 63 18 126/77 95 02/14/17 16:00 02/14/17 16:00 02/14/17 16:00 02/14/17 16:00 02/14/17 16:00 Internal Medicine: Result - Labs CBC & Chem 7: 02/13/17 04:39 02/13/17 00:57 - ABG Interpretation ABG results: PT/INR, D-dimer PT 18.1 Seconds (9.4-12.1) H 02/12/17 10:13 - Attending Attestation I examined this patient and my medical decision-making was reviewed with the OPTICAL WORKER/PA/Advanced Practice Nurse/Resident Physician. I agree with the documented findings, disposition and treatment plan as described except to the extent set forth below.
[2017-02-14] MEDS: Pregabalin 50 MG CAPSULE PO SCH ×3 (12:16→21:51)
[2017-02-14] MEDS: metOLazone 2.5 MG TABLET PO SCH ×2 (12:17→21:52)
[2017-02-14] MEDS: Insulin DETEMIR 100 UNIT/ML X5UNITS SQ SCH (21:52)
[2017-02-15 07:44] VITALS: BP 140/95
[2017-02-15 09:20] LABS: BUN/Creatinine Ratio 26 (6-26); Blood Urea Nitrogen 19 mg/dL (7-20); Calcium 9.3 mg/dL (8.6-10.8); Carbon Dioxide 35 mEq/L (19-29); Chloride 91 mEq/L (98-109); Glucose 108 mg/dL (70-99); Osmolality,Calculated 285 (280-300); Potassium 3.5 mEq/L (3.5-4.5); Sodium 136 mEq/L (136-145); eGFR For African Americans > 60 (> 60); eGFR For Non-African Americans > 60 (> 60)
--- NOTE | 2017-02-15 09:25 | Discharge Summary ---
<Agustina Mcclelland - Last Filed: 02/15/17 09:19> Date of Encounter: 02/15/17 Time of Encounter: 09:19 - Discharge Diagnosis (1) Acute exacerbation of CHF (congestive heart failure) Priority: Primary Status: Acute Comments: Patient presented to ER with increasing shortness of breath and increasing edema of bilateral lower extremities. Repeat echocardiogram with LVEF 70%, mild concentric LV hypertrophy, moderate LV diastolic dysfunction, mild dilated RV with normal systolic dysfunction, mild dilated LA, mild dilated RA and mild-moderate pulmonary hypertension with estimated RSVP 49 Patient had been previously been admitted in November 2016 with acute exacerbation of CHF, after which she was discharged with lasix. She reported that the lasix had been discontinued and she was switched over to metolazone as an outpatient. Diuresed with 40 mg lasix IV BID and added back on metolazone 2.5 mg BID. Will plan to discharge on lasix 20 mg orally BID until she can follow up with PCP. Patient had 1.2 kg weight loss during admission, only had 750 mL urine output recorded. Maintained on home metoprolol, indur and potassium chloride Qualifiers: Congestive heart failure type: diastolic Qualified Code(s): I50.33 - Acute on chronic diastolic (congestive) heart failure (2) COPD (chronic obstructive pulmonary disease) Priority: Primary Status: Chronic Comments: Chronic. Stable No evidence of acute exacerbation during hospitalization. Continue home medications. Qualifiers: COPD type: emphysema Emphysema type: unspecified Qualified Code(s): J43.9 - Emphysema, unspecified (3) Insulin dependent diabetes mellitus Priority: Primary Status: Chronic Comments: Stable. Chronic. Patient with history of type 2 diabetes mellitus on insulin pump plus additional long acting insulin at home. Pump was removed while in hospital. Patient will resume pump on discharge. Patient was found to be hypoglycemic with blood sugar of 56 on day 2 of admission. Patient strongly recommended to follow up with physician who monitors her pump to consider adjustment of pump settings. - Discharge Medications Prescriptions: Furosemide [Lasix] 40 mg PO BID 30 Days Nicotine Patch [Nicoderm] 21 mg TD DAILY 30 Days Home Medications: Atorvastatin Calcium [Lipitor] 80 mg PO DAILY 06/30/15 [History] Budesonide/Formoterol 160/4.5 [Symbicort] 2 puff IH BID 06/30/15 [History] Insulin ASPART [NovoLOG] 80 unit SQ DAILY PRN 06/30/15 [History] Montelukast [Singulair] 10 mg PO HS 06/30/15 [History] Pregabalin [Lyrica] 100 mg PO TID 06/30/15 [History] Tiotropium [Spiriva] 18 mcg IH DAILY 06/30/15 [History] Citalopram [CeleXA] 40 mg PO DAILY 08/09/15 [History] Albuterol Neb [Proventil Neb] 2.5 mg IH TID 04/17/16 [History] Albuterol Sulfate [Albuterol Inhaler] 2 puff IH Q4H PRN 04/17/16 [History] Loratadine [Claritin] 10 mg PO DAILY 04/17/16 [History] Metformin HCl [Metformin HCl ER] 4,000 mg PO QAM 04/17/16 [History] Metoprolol [Lopressor] 25 mg PO BID 04/17/16 [History] Oxygen 4 l NS AD 04/17/16 [History] Pantoprazole Sodium [Protonix] 40 mg PO DAILY 04/17/16 [History] Potassium Chloride [K-Tab ER] 20 meq PO DAILY 04/17/16 [History] Lipase/Protease/Amylase [Zenpep Dr 40,000 Units Capsule] 20,000 units PO TIDWM 08/21/16 [History] Losartan Potassium [Cozaar] 50 mg PO DAILY 08/21/16 [History] Insulin ASPART [Novolog Flexpen] 8 - 20 unit SQ TID PRN 02/13/17 [History] Insulin Degludec [Tresiba Flextouch U-100] 50 units SQ DAILY 02/13/17 [History] Isosorbide MONOnitrate (24 HR) [Imdur] 60 mg PO DAILY 02/13/17 [History] Loperamide [Imodium] 2 - 4 mg PO TID PRN 02/13/17 [History] Metolazone [Zaroxolyn] 1 tab PO 2XW 02/13/17 [History] Nitroglycerin [Nitrostat] 0.4 mg SL Q5M PRN 02/13/17 [History] Polyethylene Glycol 3350 17 gm PO BID PRN 02/13/17 [History] Ranitidine HCl [Acid Digital Advertising Specialist] 150 mg PO BID PRN 02/13/17 [History] Aspirin Enteric Coated [Aspirin EC] 81 mg PO DAILY tablet. 02/15/17 [Rx] Furosemide [Lasix] 40 mg PO BID 30 Days 02/15/17 [Rx] Nicotine Patch [Nicoderm] 21 mg TD DAILY 30 Days 02/15/17 [Rx] Allergies/Adverse Reactions: Allergies amylase [From Creon] Adverse Reaction (Verified 02/13/17 07:44) Diarrhea estrogens, conjugated [From Premarin] Adverse Reaction (Verified 02/13/17 07:44) Anxiety hydrocodone [From Vicodin] Adverse Reaction (Verified 02/13/17 07:44) Anxiety lipase [From Creon] Adverse Reaction (Verified 02/13/17 07:44) Diarrhea metronidazole [From Flagyl] Adverse Reaction (Verified 02/13/17 07:44) See Comments YEAST INFECTION protease [From Creon] Adverse Reaction (Verified 02/13/17 07:44) Diarrhea Tetracycline Adverse Reaction (Verified 02/13/17 07:44) Anxiety tramadol [From Ultram] Adverse Reaction (Verified 02/13/17 07:44) Muscle Pain Procedures/tests Complete & Pending: Procedures Performed prior 72 hours Category Date Time Status EV echocardiogram Stat Y 02/13/17 13:12 Completed Date of admission: 02/12/17 11:36 Primary care physician: Iliaan Almaguer MD Discharging clinician: Edwardo Minor Anticipated date of discharge: 02/15/17 - Patient Status Disposition: Home, Self-Care Condition: Good Functional capacity at discharge: independent ambulation Overall status at discharge: patient is progressing back to baseline - Discharge Instructions Instructions: Furosemide (By mouth), Nicotine (Absorbed through the skin), Heart Failure (DC), Diabetes Mellitus Type 2 in Adults (DC), Chronic Obstructive Pulmonary Disease (DC), Heart Failure, Communications Systems Engineer (GEN) Follow Up With: Iliana Almaguer MD [Primary Care Provider] - 02/27/17 4:15 pm - Diet and Activity Activity: resume usual activities as tolerated, wear oxygen at all times Diet: diabetic diet Interval History: 51 year ols female who presents to [place] ER with increasing shortness of breath with increasing lower extremity edema. She was subsequently admitted for acute exacerbation of congestive heart failure. She was diuresed with IV lasix 40 mg BID, on second hospital day home metolazone was added back in to her medications. Her weight decreased by 1.2 kg during hsopital stay and she had improvement in her lower extremity edema. ON admission she had +3 pitting edema to her groin, on day of discharge she had +1 pitting edema bilateral lower extremities to knees. She had reported that she has been taken off of lasix outpatient and switched to metolazone. She will be discharged on lasix 40 mg orally BID along with her home metolazone for synergistic effect. Repeat echocardiogram done while inpatient demonstrated no change from previous echo, LVEF 70%, mild concentric LV hypertrophy, moderate LV diastolic dysfunction, mildly dilated RV with normal systolic function, moderately dilated LA, moderately dilated RA and mild-moderate pulmonary hypertension with estimated RVSP 49. She as maintained on her home medications for her COPD, did not demonstrate any acute exacerbation during hospital stay. With regards to her diabetes, on hospital day 2 she was found to be hypoglycemic at 56 while on her home pump. She removed her home pump and will replace it prior to discharge. Due to hypoglycemia, it was recommended she follow up as outpatient to discuss any adjustments to pump or long acting insulins. On day of discharge, she was feeling improved. She was tolerating diet with no nausea or vomiting. She was able to go the bathroom with no difficulty. She was instructed to follow up with her PCP within one week of discharge. Hospital course: Ms. Alanis is a 51 year old female - Time Spent with Patient Total time spent providing and/or coordinating discharge services: - Constitutional Vitals: Temp Pulse Resp BP Pulse Ox 98.5 F 63 17 140/95 96 02/15/17 07:00 02/15/17 07:00 02/15/17 07:00 02/15/17 07:00 02/15/17 07:00 General appearance: Present: cooperative, A&O X 3, pleasant, no acute distress, obese, answers questions appropriately - Head Head exam: Present: atraumatic, normocephalic - Eye Eye exam: Present: normal appearance, PERRL, sclera anicteric. Absent: conjunctival injection - ENT ENT exam: Present: mucous membranes moist, normal external ear exam Additional comments: nasal canula in place - Neck Neck exam general surgery: Present: supple, trachea midline - Respiratory Respiratory exam: Present: CTAB. Absent: rales, rhonchi, stridor, wheezes - Cardiovascular Cardiovascular exam: Present: RRR, +S1, +S2. Absent: clicks, diastolic murmur, gallop, rubs, systolic murmur - GI/Abdominal GI/Abdominal exam: Present: normal bowel sounds, soft. Absent: distended, guarding, rebound, tenderness - Extremities Exam Extremities exam: Present: normal capillary refill, pedal edema (+1 pitting edema bilateral lower extremities to knees), radial pulses palpable and symetrical - Psychiatric Psychiatric exam: Present: normal affect, normal mood - Skin Skin exam: Present: dry, intact, warm <Mily,Edwardo P - Last Filed: 02/15/17 16:44> Date of Encounter: 02/15/17 Procedures/tests Complete & Pending: Procedures Performed prior 72 hours Category Date Time Status EV echocardiogram Stat Y 02/13/17 13:12 Completed Date of admission: 02/12/17 11:36 Primary care physician: Iliana Almaguer MD Hospital course: Ms. Alanis is a 51 year old female - Time Spent with Patient Total time spent providing and/or coordinating discharge services: - Constitutional Vitals: Temp Pulse Resp BP Pulse Ox 98.5 F 63 17 140/95 96 02/15/17 07:00 02/15/17 07:00 02/15/17 07:00 02/15/17 07:00 02/15/17 07:00 - Attending Attestation I examined this patient and my medical decision-making was reviewed with the SOLID WASTE MANAGER/PA/Advanced Practice Nurse/Resident Physician. I agree with the documented findings, disposition and treatment plan as described except to the extent set forth below.
[2017-02-15] MEDS: Insulin LISPRO 300 UNITS/3 ML VIAL SQ SCH ×4 (09:41→11:29)
[2017-02-15] MEDS: Furosemide 40 MG/4 ML VIAL IVP SCH (10:54)
[2017-02-15] MEDS: Aspirin Enteric Coated 81 MG Tablet PO SCH (10:54)
[2017-02-15] MEDS: Isosorbide MONOnitrate (24 HR) 30 MG TAB.ER.24H PO SCH (10:54)
[2017-02-15] MEDS: Nicotine 21 MG PATCH.TD24 TD SCH (10:55)
[2017-02-15] MEDS: Pregabalin 50 MG CAPSULE PO SCH (10:55)
[2017-02-15] MEDS: metOLazone 2.5 MG TABLET PO SCH (10:57)
--- NOTE | 2017-02-15 13:07 | Physician Discharge Referral ---
<Agustina Mcclelland - Last Filed: 02/15/17 13:07> Home Health/Hosp Referral Info Transfer to: Home Health Provider in Charge Post Discharge: PCP - Diagnosis (1) Acute exacerbation of CHF (congestive heart failure) Status: Acute (2) COPD (chronic obstructive pulmonary disease) Status: Chronic (3) Insulin dependent diabetes mellitus Status: Chronic - Respiratory Orders Smoking Cessation: Smoking cessation has been advised. For more information, call the [place] Tobacco Quit Line at 6-738-NUOL-NOW. - Transfer Medications Prescriptions: Furosemide [Lasix] 40 mg PO BID 30 Days Nicotine Patch [Nicoderm] 21 mg TD DAILY 30 Days Home Medications: Atorvastatin Calcium [Lipitor] 80 mg PO DAILY 06/30/15 [History] Budesonide/Formoterol 160/4.5 [Symbicort] 2 puff IH BID 06/30/15 [History] Insulin ASPART [NovoLOG] 80 unit SQ DAILY PRN 06/30/15 [History] Montelukast [Singulair] 10 mg PO HS 06/30/15 [History] Pregabalin [Lyrica] 100 mg PO TID 06/30/15 [History] Tiotropium [Spiriva] 18 mcg IH DAILY 06/30/15 [History] Citalopram [CeleXA] 40 mg PO DAILY 08/09/15 [History] Albuterol Neb [Proventil Neb] 2.5 mg IH TID 04/17/16 [History] Albuterol Sulfate [Albuterol Inhaler] 2 puff IH Q4H PRN 04/17/16 [History] Loratadine [Claritin] 10 mg PO DAILY 04/17/16 [History] Metformin HCl [Metformin HCl ER] 4,000 mg PO QAM 04/17/16 [History] Metoprolol [Lopressor] 25 mg PO BID 04/17/16 [History] Oxygen 4 l NS AD 04/17/16 [History] Pantoprazole Sodium [Protonix] 40 mg PO DAILY 04/17/16 [History] Potassium Chloride [K-Tab ER] 20 meq PO DAILY 04/17/16 [History] Lipase/Protease/Amylase [Zenpep Dr 40,000 Units Capsule] 20,000 units PO TIDWM 08/21/16 [History] Losartan Potassium [Cozaar] 50 mg PO DAILY 08/21/16 [History] Insulin ASPART [Novolog Flexpen] 8 - 20 unit SQ TID PRN 02/13/17 [History] Insulin Degludec [Tresiba Flextouch U-100] 50 units SQ DAILY 02/13/17 [History] Isosorbide MONOnitrate (24 HR) [Imdur] 60 mg PO DAILY 02/13/17 [History] Loperamide [Imodium] 2 - 4 mg PO TID PRN 02/13/17 [History] Metolazone [Zaroxolyn] 1 tab PO 2XW 02/13/17 [History] Nitroglycerin [Nitrostat] 0.4 mg SL Q5M PRN 02/13/17 [History] Polyethylene Glycol 3350 17 gm PO BID PRN 02/13/17 [History] Ranitidine HCl [Acid Voip Network Technician] 150 mg PO BID PRN 02/13/17 [History] Aspirin Enteric Coated [Aspirin EC] 81 mg PO DAILY tablet. 02/15/17 [Rx] Furosemide [Lasix] 40 mg PO BID 30 Days 02/15/17 [Rx] Nicotine Patch [Nicoderm] 21 mg TD DAILY 30 Days 02/15/17 [Rx] Allergies/Adverse Reactions: Allergies amylase [From Creon] Adverse Reaction (Verified 02/13/17 07:44) Diarrhea estrogens, conjugated [From Premarin] Adverse Reaction (Verified 02/13/17 07:44) Anxiety hydrocodone [From Vicodin] Adverse Reaction (Verified 02/13/17 07:44) Anxiety lipase [From Creon] Adverse Reaction (Verified 02/13/17 07:44) Diarrhea metronidazole [From Flagyl] Adverse Reaction (Verified 02/13/17 07:44) See Comments YEAST INFECTION protease [From Creon] Adverse Reaction (Verified 02/13/17 07:44) Diarrhea Tetracycline Adverse Reaction (Verified 02/13/17 07:44) Anxiety tramadol [From Ultram] Adverse Reaction (Verified 02/13/17 07:44) Muscle Pain Certification: Further, I certify that my clinical findings support that this patient is homebound (i.e. absences from home require considerable and taxing effort and are for medical reasons or christian services or infrequently or short duration when for other reasons) because: Homebound Reason: Leaving home requires considerable and taxing effort due to condition Attestation: My signature below is to certify that this patient is under my care and that I, or nurse practitioner, or a physician's special education teaching assistant working with me, has a face-to -face encounter with this patient. <Edwardo Minor P - Last Filed: 02/15/17 16:44> - Respiratory Orders Smoking Cessation: Smoking cessation has been advised. For more information, call the [place] Tobacco Quit Line at 6-580-JCZF-NOW. Certification: Further, I certify that my clinical findings support that this patient is homebound (i.e. absences from home require considerable and taxing effort and are for medical reasons or christian services or infrequently or short duration when for other reasons) because: Attestation: My signature below is to certify that this patient is under my care and that I, or nurse practitioner, or a physician's special education teaching assistant working with me, has a face-to -face encounter with this patient.
== END 2017-02-15 13:25 | disposition home health service (06) ==
LOC: EMEROO 09:32 → 2ANU 09:32 → 2NENU 11:57
PROVIDERS: ADMIT Internal Medicine; ATTEND Internal Medicine

== ENCOUNTER 2017-02-27 17:36 | Observation (INO) ==
[2017-02-27] MEDS ORDERED: Ipratropium/Albuterol Neb 3 ML IH ONE (18:08)
[2017-02-27] MEDS ORDERED: methylPREDNISolone 125 MG/2 ML VIAL IVP ONE (18:08)
--- NOTE | 2017-02-27 18:28 | Emergency Department Note ---
Disposition Clinical Impression: Atrial fibrillation with rapid ventricular response Acute exacerbation of CHF (congestive heart failure) Qualifiers: Congestive heart failure type: unspecified congestive heart failure type Qualified Code(s): I50.9 - Heart failure, unspecified Disposition: Admitted As Inpatient Condition: Good Referrals: Iliana Almaguer MD [Primary Care Provider] - Forms: ED Satisfaction Letter Time of Disposition: 21:34 Chest Pain HPI - General Chief Complaint: ED Chest Pain Stated Complaint: Chest Pain/ Weakness Time Seen by Provider: 02/27/17 17:39 Source: patient Limitations: no limitations - History of Present Illness HPI Narrative: 60 year old female with HX of COPD oxygen dependent has been experiencind midsternal chest pressure for the past week associated with exertional dyspnea and dyspnea at rest. PAtient was being seen at the doctoros office and was taken off her oxygen and dropped to 60%s and when she was put back on her oxygen she came back up to 90%s. PAtient state she has a chronic cough that has been woresning and is nonproductive. She states the chest pain is midsternal and goes into her back and between her shoulder blades and described and sharp. Patient states that she has also had fevers at home of 102F Tmaxx and denies headache, neck pain, and N/V. Marcellus also denies abdomnial pain or UTI symptoms. She is not a detailed historian. EMS provided a majority of the HPI. Marcellus states that she is not sure why she was sent to the ED from her doctor office. Bilateral blood pressure are the same of 100/60s. Upon arrival to the room her BP si 98/68 possibly sepsis r/o aortic dissection/PE. Most recent admision to the hospital was 2 weeks ago and it was due to CHF excerbation Severity scale (1-10): 7 - Related Data Home Medications Medication Instructions Recorded Confirmed Atorvastatin Calcium [Lipitor] 80 mg PO DAILY 06/30/15 02/12/17 Budesonide/Formoterol 160/4.5 2 puff IH BID 06/30/15 02/12/17 [Symbicort] Insulin ASPART [NovoLOG] 80 unit SQ DAILY PRN 06/30/15 02/13/17 Montelukast [Singulair] 10 mg PO HS 06/30/15 02/12/17 Pregabalin [Lyrica] 100 mg PO TID 06/30/15 02/12/17 Tiotropium [Spiriva] 18 mcg IH DAILY 06/30/15 02/12/17 Citalopram [CeleXA] 40 mg PO DAILY 08/09/15 02/12/17 Albuterol Neb [Proventil Neb] 2.5 mg IH TID 04/17/16 02/12/17 Albuterol Sulfate [Albuterol 2 puff IH Q4H PRN 04/17/16 02/13/17 Inhaler] Loratadine [Claritin] 10 mg PO DAILY 04/17/16 02/12/17 Metformin HCl [Metformin HCl ER] 4,000 mg PO QAM 04/17/16 02/13/17 Metoprolol [Lopressor] 25 mg PO BID 04/17/16 02/12/17 Oxygen 4 l NS AD 04/17/16 02/12/17 Pantoprazole Sodium [Protonix] 40 mg PO DAILY 04/17/16 02/12/17 Potassium Chloride [K-Tab ER] 20 meq PO DAILY 04/17/16 02/12/17 Lipase/Protease/Amylase [Zenpep Dr 20,000 units PO TIDWM 08/21/16 02/13/17 40,000 Units Capsule] Losartan Potassium [Cozaar] 50 mg PO DAILY 08/21/16 02/12/17 Insulin ASPART [Novolog Flexpen] 8 - 20 unit SQ TID PRN 02/13/17 02/13/17 Insulin Degludec [Tresiba 50 units SQ DAILY 02/13/17 02/13/17 Flextouch U-100] Isosorbide MONOnitrate (24 HR) 60 mg PO DAILY 02/13/17 02/13/17 [Imdur] Loperamide [Imodium] 2 - 4 mg PO TID PRN 02/13/17 02/13/17 Metolazone [Zaroxolyn] 1 tab PO 2XW 02/13/17 02/13/17 Nitroglycerin [Nitrostat] 0.4 mg SL Q5M PRN 02/13/17 02/13/17 Polyethylene Glycol 3350 17 gm PO BID PRN 02/13/17 02/13/17 Ranitidine HCl [Acid Marker Maker] 150 mg PO BID PRN 02/13/17 02/13/17 Previous Rx's Medication Instructions Recorded Aspirin Enteric Coated [Aspirin EC] 81 mg PO DAILY tablet. 02/15/17 Furosemide [Lasix] 40 mg PO BID 30 Days 02/15/17 Nicotine Patch [Nicoderm] 21 mg TD DAILY 30 Days 02/15/17 Allergies Allergy/AdvReac Type Severity Reaction Status Date / Time amylase [From Creon] AdvReac Diarrhea Verified 02/13/17 07:44 estrogens, conjugated AdvReac Anxiety Verified 02/13/17 07:44 [From Premarin] hydrocodone [From Vicodin] AdvReac Anxiety Verified 02/13/17 07:44 lipase [From Creon] AdvReac Diarrhea Verified 02/13/17 07:44 metronidazole [From Flagyl] AdvReac See Verified 02/13/17 07:44 Comments protease [From Creon] AdvReac Diarrhea Verified 02/13/17 07:44 Tetracycline AdvReac Anxiety Verified 02/13/17 07:44 tramadol [From Ultram] AdvReac Muscle Pain Verified 02/13/17 07:44 Constitutional: Reports: fever, chills, weakness. Denies: weight change Eyes: Denies: eye pain, eye discharge, vision change ENT ED: Denies: ear pain, throat pain, dental pain, hearing loss, epistaxis, congestion, dysphagia Cardiovascular: Reports: chest pain, dyspnea on exertion. Denies: palpitations , edema, syncope Respiratory: Reports: cough, dyspnea, wheezes. Denies: hemoptysis, stridor Gastrointestinal: Denies: abdominal pain, nausea, vomiting, diarrhea, constipation, hematemesis, melena, hematochezia Genitourinary: Denies: dysuria, frequency, hematuria, discharge Musculoskeletal: Denies: back pain, neck pain, arthralgia, myalgia Integumentary: Denies: rash, abrasion, lesions Neurological: Denies: headache, weakness, numbness, paresthesias, confusion, abnormal gait, vertigo Psychiatric: Denies: anxiety, depression, suicidal thoughts, homicidal thoughts , auditory hallucinations, visual hallucinations Chest Pain PMH - Past Medical History Medical history: Reports: arthritis, asthma, CHF, COPD, diabetes, hyperlipidemia , hypertension, kidney stones, other Surgical history: Reports: cholecystectomy, other Psychiatric history: Reports: depression EQUINE BREEDER history: Reports: no EQUINE BREEDER history, 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 - Social History Smoking Status: Current every day smoker Alcohol use: Reports: none Drug use: Reports: none Physical Exam - General Limitations: no limitations General appearance: alert, in no apparent distress - Head Head exam: atraumatic, normocephalic, normal inspection - Eye Eye exam: Present: normal appearance, PERRL, EOMI - Expanded Eye Exam Pupils: Left: reactive - ENT ENT exam: normal exam, normal oropharynx, mucous membranes moist - Expanded ENT Exam External ear exam: Present: normal external inspection Mouth exam: Present: normal external inspection Teeth exam: Present: normal inspection Throat exam: Present: normal inspection - Neck Neck exam: Present: normal inspection, full ROM, trachea midline - Chest Chest inspection: Present: normal inspection, symmetric chest wall rise - Respiratory Respiratory exam: Present: wheezes (mild anterior) - Cardiovascular Cardiovascular exam: Present: regular rate, normal rhythm, normal heart sounds - Abdominal Exam Abdominal exam: Present: soft, Non-Tender. Absent: tenderness, distention, guarding, rebound, rigidity - Extremities Exam Extremities exam: Present: normal inspection, full ROM. Absent: tenderness, pedal edema - Expanded Upper Extremity Exam Shoulder exam: Present: normal inspection, full ROM Arm exam: Present: normal inspection, full ROM Elbow exam: Present: normal inspection, full ROM Forearm/Wrist exam: Present: normal inspection, full ROM Hand exam: Present: normal inspection, full ROM Vascular exam: Normal: capillary refill, radial pulse - Expanded Lower Extremity Exam Hip/Pelvis exam: Present: normal inspection, full ROM Upper leg exam: Present: normal inspection, full ROM Knee exam: Present: normal inspection, full ROM Lower leg exam: Present: normal inspection, full ROM Ankle exam: Present: normal inspection, full ROM Foot/toe exam: Present: normal inspection, full ROM Neurovascular/Tendon exam: Absent: motor deficit, sensory deficit, tendon deficit - Back Exam Back exam: Present: normal inspection, full ROM. Absent: tenderness - Neurological Exam Neurological exam: Present: alert, oriented X3 - Expanded Neurological Exam Patient oriented to: Present: person, place, time Coma Scale Eye Opening: Spontaneous Coma Scale Motor Response: Obeys Commands Coma Scale Verbal Response: Oriented Coma Scale Total: 15 - Psychiatric Psychiatric exam: Present: normal affect, normal mood - Skin Skin exam: Present: warm, dry, intact, normal color Course Course Narrative: we will do a chest pain workup r/o aortic dissection/PE with a CTA chest. In addition to a focused sepsis workup to r/o pneumonia. IVF and duomebs ordered for therapy. - Reevaluation(s) Reevaluation #1: marcellus has elevated HR of 120s, we will obtain a repeat EKG for comparison. Time: 19:04 Reevaluation #2: patient rectal temp is 99. We will slowly start cardizem to try and control the rate and then re-eval. Time: 20:46 - Consultations Consultation #1: Dr. Daniel accepts marcellus for admission to the step down unit. Time: 21:34 Vital Signs Temperature 98.7 F 02/27/17 17:39 Pulse Rate 62 02/27/17 17:39 Respiratory Rate 16 02/27/17 17:39 Blood Pressure 100/64 02/27/17 17:39 O2 Sat by Pulse Oximetry 96 02/27/17 17:39 Temperature 99.3 F 02/27/17 20:43 Pulse Rate 112 02/27/17 20:43 Respiratory Rate 18 02/27/17 20:43 Blood Pressure 94/64 02/27/17 20:43 O2 Sat by Pulse Oximetry 94 02/27/17 20:43 Oxygen Delivery Oxygen Delivery Room Air Chest Pain - Lab Data Result diagrams: 02/27/17 19:06 02/27/17 18:16 Lab Results 02/27/17 02/27/17 02/27/17 Range/Units 18:16 18:16 18:16 WBC (4.3-11.1) K/mcL RBC (3.82-4.97) M/mcL Hgb (11.5-15.4) g/dL Hct (35.3-44.9) % MCV (83.0-100.0) fL MCH (28.0-33.3) pg MCHC (31.6-35.5) g/dL RDW (11.5-14.5) % Plt Count (140-400) K/mcL MPV Immature Gran % (0-4) % Seg Neutrophils % % Lymphocytes % % Monocytes % % Eosinophils % % Basophils % % Neutrophils # (1.6-8.9) K/mcL Lymphocytes # (0.6-4.6) K/mcL Monocytes # (0.0-1.3) K/mcL Eosinophils # (0.0-0.6) K/mcL Basophils # (0.0-0.2) K/mcL Platelet Estimate (Normal) Large Platelets (Not Present) Immature Plt Fraction (1.1-6.1) % Anisocytosis (Not Present) PT 16.7 H (9.4-12.1) Seconds INR 1.5 APTT 31.6 (26.0-36.0) Seconds D-Dimer 3645 H (0-500) ng/mLFEU Sodium (136-145) mEq/L Potassium (3.5-4.5) mEq/L Chloride (98-109) mEq/L Carbon Dioxide (19-29) mEq/L BUN (7-20) mg/dL Creatinine (0.57-1.11) mg/dL Est GFR ( Amer) (> 60) Est GFR (Non-Af Amer) (> 60) BUN/Creatinine Ratio (6-26) Glucose (70-99) mg/dL Calculated Osmolality (280-300) Lactic Acid (0.5-2.2) mmol/L Calcium (8.6-10.8) mg/dL Total Bilirubin 1.2 (0.2-1.2) mg/dL Direct Bilirubin 0.6 H (0.0-0.5) mg/dL Indirect Bilirubin 0.6 (0.0-1.2) mg/dL AST 25 (5-34) Units/L ALT 21 (0-55) Units/L Alkaline Phosphatase 145 H (38-126) Units/L Troponin I (0-0.03) ng/mL B-Natriuretic Peptide 1115 H (0-100) pg/mL Serum Total Protein 6.7 (6.0-8.3) g/dL Albumin 3.1 L (3.5-5.0) g/dL Globulin 3.6 H (2.4-3.5) g/dL Albumin/Globulin Ratio 0.9 L (1.1-2.2) Lipase 4 L (8-78) Units/L Urine Color (Yellow) Urine Clarity (Clear) Urine pH (5.0-8.0) pH Units Ur Specific [place] (1.010-1.025) Urine Protein (Neg-Trace) mg/dL Urine Glucose (UA) (Normal) mg/dL Urine Ketones (Negative) mg/dL Urine Blood (Negative) Urine Nitrite (Negative) Urine Bilirubin (Negative) Urine Urobilinogen (Normal) mg/dL Ur Leukocyte Esterase (Negative) Ur Culture Indicated? (NO) Specimen Rejected 02/27/17 02/27/17 02/27/17 Range/Units 18:16 18:16 18:16 WBC (4.3-11.1) K/mcL RBC (3.82-4.97) M/mcL Hgb (11.5-15.4) g/dL Hct (35.3-44.9) % MCV (83.0-100.0) fL MCH (28.0-33.3) pg MCHC (31.6-35.5) g/dL RDW (11.5-14.5) % Plt Count (140-400) K/mcL MPV Immature Gran % (0-4) % Seg Neutrophils % % Lymphocytes % % Monocytes % % Eosinophils % % Basophils % % Neutrophils # (1.6-8.9) K/mcL Lymphocytes # (0.6-4.6) K/mcL Monocytes # (0.0-1.3) K/mcL Eosinophils # (0.0-0.6) K/mcL Basophils # (0.0-0.2) K/mcL Platelet Estimate (Normal) Large Platelets (Not Present) Immature Plt Fraction (1.1-6.1) % Anisocytosis (Not Present) PT (9.4-12.1) Seconds INR APTT (26.0-36.0) Seconds D-Dimer (0-500) ng/mLFEU Sodium 135 L (136-145) mEq/L Potassium 3.2 L (3.5-4.5) mEq/L Chloride 91 L (98-109) mEq/L Carbon Dioxide 35 H (19-29) mEq/L BUN 31 H (7-20) mg/dL Creatinine 1.08 (0.57-1.11) mg/dL Est GFR ( Amer) > 60 (> 60) Est GFR (Non-Af Amer) 53 L (> 60) BUN/Creatinine Ratio 29 H (6-26) Glucose 125 H (70-99) mg/dL Calculated Osmolality 288 (280-300) Lactic Acid (0.5-2.2) mmol/L Calcium 9.2 (8.6-10.8) mg/dL Total Bilirubin (0.2-1.2) mg/dL Direct Bilirubin (0.0-0.5) mg/dL Indirect Bilirubin (0.0-1.2) mg/dL AST (5-34) Units/L ALT (0-55) Units/L Alkaline Phosphatase (38-126) Units/L Troponin I 0.01 (0-0.03) ng/mL B-Natriuretic Peptide (0-100) pg/mL Serum Total Protein (6.0-8.3) g/dL Albumin (3.5-5.0) g/dL Globulin (2.4-3.5) g/dL Albumin/Globulin Ratio (1.1-2.2) Lipase (8-78) Units/L Urine Color (Yellow) Urine Clarity (Clear) Urine pH (5.0-8.0) pH Units Ur Specific [place] (1.010-1.025) Urine Protein (Neg-Trace) mg/dL Urine Glucose (UA) (Normal) mg/dL Urine Ketones (Negative) mg/dL Urine Blood (Negative) Urine Nitrite (Negative) Urine Bilirubin (Negative) Urine Urobilinogen (Normal) mg/dL Ur Leukocyte Esterase (Negative) Ur Culture Indicated? (NO) Specimen Rejected Clotted 02/27/17 02/27/17 02/27/17 Range/Units 19:06 19:06 20:50 WBC 11.7 H (4.3-11.1) K/mcL RBC 6.50 H (3.82-4.97) M/mcL Hgb 14.0 (11.5-15.4) g/dL Hct 45.7 H (35.3-44.9) % MCV 70.3 L (83.0-100.0) fL MCH 21.5 L (28.0-33.3) pg MCHC 30.6 L (31.6-35.5) g/dL RDW 23.3 H (11.5-14.5) % Plt Count 253 (140-400) K/mcL MPV TNP Immature Gran % 0.4 (0-4) % Seg Neutrophils % 74.5 % Lymphocytes % 13.7 % Monocytes % 10.4 % Eosinophils % 0.4 % Basophils % 0.6 % Neutrophils # 8.7 (1.6-8.9) K/mcL Lymphocytes # 1.6 (0.6-4.6) K/mcL Monocytes # 1.2 (0.0-1.3) K/mcL Eosinophils # 0.1 (0.0-0.6) K/mcL Basophils # 0.1 (0.0-0.2) K/mcL Platelet Estimate Normal (Normal) Large Platelets Present A (Not Present) Immature Plt Fraction 6.0 (1.1-6.1) % Anisocytosis 1+ A (Not Present) PT (9.4-12.1) Seconds INR APTT (26.0-36.0) Seconds D-Dimer (0-500) ng/mLFEU Sodium (136-145) mEq/L Potassium (3.5-4.5) mEq/L Chloride (98-109) mEq/L Carbon Dioxide (19-29) mEq/L BUN (7-20) mg/dL Creatinine (0.57-1.11) mg/dL Est GFR ( Amer) (> 60) Est GFR (Non-Af Amer) (> 60) BUN/Creatinine Ratio (6-26) Glucose (70-99) mg/dL Calculated Osmolality (280-300) Lactic Acid 1.0 (0.5-2.2) mmol/L Calcium (8.6-10.8) mg/dL Total Bilirubin (0.2-1.2) mg/dL Direct Bilirubin (0.0-0.5) mg/dL Indirect Bilirubin (0.0-1.2) mg/dL AST (5-34) Units/L ALT (0-55) Units/L Alkaline Phosphatase (38-126) Units/L Troponin I (0-0.03) ng/mL B-Natriuretic Peptide (0-100) pg/mL Serum Total Protein (6.0-8.3) g/dL Albumin (3.5-5.0) g/dL Globulin (2.4-3.5) g/dL Albumin/Globulin Ratio (1.1-2.2) Lipase (8-78) Units/L Urine Color Yellow (Yellow) Urine Clarity Clear (Clear) Urine pH 6.0 (5.0-8.0) pH Units Ur Specific [place] 1.018 (1.010-1.025) Urine Protein Negative (Neg-Trace) mg/dL Urine Glucose (UA) Normal (Normal) mg/dL Urine Ketones Negative (Negative) mg/dL Urine Blood Negative (Negative) Urine Nitrite Negative (Negative) Urine Bilirubin Negative (Negative) Urine Urobilinogen Normal (Normal) mg/dL Ur Leukocyte Esterase Negative (Negative) Ur Culture Indicated? NO (NO) Specimen Rejected - EKG Data EKG attestation: Yes I reviewed and interpreted this EKG. EKG results narrative: NSR with rate of 61. NO STEMI. normal intervals. no change from previous old ekg 02/12/17. #2: atrial fibrillation with rate of 122. NO STEMI. change from Ekg #1 1910
[2017-02-27 18:29] LABS: INR 1.5; Prothrombin Time 16.7 Seconds (9.4-12.1)
[2017-02-27 18:31] LABS: Activated Partial Thrombo Time 31.6 Seconds (26.0-36.0)
[2017-02-27 18:38] LABS: BUN/Creatinine Ratio 29 (6-26); Blood Urea Nitrogen 31 mg/dL (7-20); Calcium 9.2 mg/dL (8.6-10.8); Carbon Dioxide 35 mEq/L (19-29); Chloride 91 mEq/L (98-109); Glucose 125 mg/dL (70-99); Osmolality,Calculated 288 (280-300); Potassium 3.2 mEq/L (3.5-4.5); Sodium 135 mEq/L (136-145); eGFR For African Americans > 60 (> 60); eGFR For Non-African Americans 53 (> 60)
[2017-02-27 18:39] LABS: Albumin 3.1 g/dL (3.5-5.0); Albumin/Globulin Ratio 0.9 (1.1-2.2); Bilirubin,Direct 0.6 mg/dL (0.0-0.5); Bilirubin,Indirect 0.6 mg/dL (0.0-1.2); Bilirubin,Total 1.2 mg/dL (0.2-1.2); Globulin 3.6 g/dL (2.4-3.5); Total Protein 6.7 g/dL (6.0-8.3)
[2017-02-27] MEDS ORDERED: Furosemide 40 MG/4 ML VIAL IVP ONE (19:05)
[2017-02-27 19:16] LABS: Basophils # 0.1 K/mcL (0.0-0.2); Basophils % 0.6 %; Eosinophils # 0.1 K/mcL (0.0-0.6); Eosinophils % 0.4 %; Hematocrit 45.7 % (35.3-44.9); Immature Granulocytes % 0.4 % (0-4); Lymphocytes # 1.6 K/mcL (0.6-4.6); Lymphocytes % 13.7 %; Mean Corpuscular HGB Conc 30.6 g/dL (31.6-35.5); Mean Corpuscular Hemoglobin 21.5 pg (28.0-33.3); Mean Corpuscular Volume 70.3 fL (83.0-100.0); Monocytes # 1.2 K/mcL (0.0-1.3); Monocytes % 10.4 %; Neutrophils # 8.7 K/mcL (1.6-8.9); Platelet Count 253 K/mcL (140-400); Red Cell Distribution Width 23.3 % (11.5-14.5); Segmented Neutrophils % 74.5 %
[2017-02-27 19:38] LABS: Anisocytosis 1+ (Not Present); Large Platelets Present (Not Present)
[2017-02-27 19:39] LABS: Platelet Estimate Normal (Normal)
[2017-02-27] MEDS ORDERED: 0.9 % Sodium Chloride 1,000 ML ONE ×2 (19:47→21:31)
--- NOTE | 2017-02-27 20:41 | Emergency Department Note ---
Disposition Clinical Impression: Acute exacerbation of CHF (congestive heart failure), Atrial fibrillation with rapid ventricular response Disposition: Admitted As Inpatient Condition: Good General Adult HPI - General Chief complaint: ED Chest Pain Stated complaint: Chest Pain/ Weakness Time Seen by Provider: 02/27/17 17:39 Source: patient Limitations: no limitations - History of Present Illness Pain Scale: 7 - Related Data Home Medications Medication Instructions Recorded Confirmed Atorvastatin Calcium [Lipitor] 80 mg PO DAILY 06/30/15 02/27/17 Budesonide/Formoterol 160/4.5 2 puff IH BID 06/30/15 02/27/17 [Symbicort] Montelukast [Singulair] 10 mg PO HS 06/30/15 02/27/17 Pregabalin [Lyrica] 100 mg PO TID 06/30/15 02/27/17 Tiotropium [Spiriva] 18 mcg IH DAILY 06/30/15 02/27/17 Citalopram [CeleXA] 20 mg PO DAILY 08/09/15 02/27/17 Albuterol Neb [Proventil Neb] 2.5 mg IH Q6H PRN 04/17/16 02/27/17 Albuterol Sulfate [Albuterol 2 puff IH Q4H PRN 04/17/16 02/27/17 Inhaler] Loratadine [Claritin] 10 mg PO DAILY 04/17/16 02/27/17 Metformin HCl [Metformin HCl ER] 1,000 mg PO BID 04/17/16 02/27/17 Metoprolol [Lopressor] 25 mg PO BID 04/17/16 02/27/17 Oxygen 4 l NS AD 04/17/16 02/27/17 Pantoprazole Sodium [Protonix] 40 mg PO DAILY 04/17/16 02/27/17 Potassium Chloride [K-Tab ER] 20 meq PO DAILY 04/17/16 02/27/17 Lipase/Protease/Amylase [Zenpep Dr 20,000 units PO TIDWM 08/21/16 02/27/17 40,000 Units Capsule] Losartan Potassium [Cozaar] 50 mg PO DAILY 08/21/16 02/27/17 Insulin ASPART [Novolog Flexpen] 8 - 20 unit SQ TIDWM 02/13/17 02/27/17 Insulin Degludec [Tresiba 60 units SQ DAILY 02/13/17 02/27/17 Flextouch U-100] Metolazone [Zaroxolyn] 2.5 mg PO 2XW 02/13/17 02/27/17 Nitroglycerin [Nitrostat] 0.4 mg SL Q5M PRN 02/13/17 02/27/17 Polyethylene Glycol 3350 17 gm PO BID PRN 02/13/17 02/27/17 Ranitidine HCl [Acid Banking Supervisor] 150 mg PO BID PRN 02/13/17 02/27/17 Acetaminophen [Tylenol Arthritis] 650 mg PO Q8H 02/27/17 02/27/17 Cholecalciferol (D-3) [Vitamin D] 5,000 unit PO BID 02/27/17 02/27/17 Fluticasone Propionate Nasal 100 mcg NS DAILY 02/27/17 02/27/17 [Flonase] Isosorbide MONOnitrate [Isosorbide 120 mg PO DAILY 02/27/17 02/27/17 Mononitrate ER] Previous Rx's Medication Instructions Recorded Aspirin Enteric Coated [Aspirin EC] 81 mg PO DAILY tablet. 02/15/17 Allergies Allergy/AdvReac Type Severity Reaction Status Date / Time amylase [From Creon] AdvReac Diarrhea Verified 02/13/17 07:44 estrogens, conjugated AdvReac Anxiety Verified 02/13/17 07:44 [From Premarin] hydrocodone [From Vicodin] AdvReac Anxiety Verified 02/13/17 07:44 lipase [From Creon] AdvReac Diarrhea Verified 02/13/17 07:44 metronidazole [From Flagyl] AdvReac See Verified 02/13/17 07:44 Comments protease [From Creon] AdvReac Diarrhea Verified 02/13/17 07:44 Tetracycline AdvReac Anxiety Verified 02/13/17 07:44 tramadol [From Ultram] AdvReac Muscle Pain Verified 02/13/17 07:44 Constitutional: Reports: fever, chills, weakness. Denies: weight change Eyes: Denies: eye pain, eye discharge, vision change ENT ED: Denies: ear pain, throat pain, dental pain, hearing loss, epistaxis, congestion, dysphagia Cardiovascular: Reports: chest pain, dyspnea on exertion. Denies: palpitations , edema, syncope Respiratory: Reports: cough, dyspnea, wheezes. Denies: hemoptysis, stridor Gastrointestinal: Denies: abdominal pain, nausea, vomiting, diarrhea, constipation, hematemesis, melena, hematochezia Genitourinary: Denies: dysuria, frequency, hematuria, discharge Musculoskeletal: Denies: back pain, neck pain, arthralgia, myalgia Integumentary: Denies: rash, abrasion, lesions Neurological: Denies: headache, weakness, numbness, paresthesias, confusion, abnormal gait, vertigo Psychiatric: Denies: anxiety, depression, suicidal thoughts, homicidal thoughts , auditory hallucinations, visual hallucinations Past Medical History - Past Medical History Medical history: Reports: arthritis, asthma, CHF, COPD, diabetes, hyperlipidemia , hypertension, kidney stones, other Surgical history: Reports: cholecystectomy, other Psychiatric history: Reports: depression 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 Coronel. The patient presented feeling weak and run down. Apparently at home she had a temperature as well. Here in the department she does not have a temperature by temporal reading but is noted to be in atrial fibrillation with rapid ventricular response in the 130s. She does have a cough as well. I am trying to determine whether the RVR is a result of her illness or whether the RVR is the cause of all of her other symptoms. She has a number of minor lab abnormalities. We are giving her IV fluids. CT of the chest with contrast did not reveal any evidence of pulmonary embolism or other acute intrathoracic pathology. We will do a rectal temperature to confirm whether or not there is actually a fever. We will catheter for urine to get a clean specimen there. At this point I believe if she is not febrile we will go ahead and start Cardizem cautiously. Disposition will be based on diagnostic results and reevaluation although I feel the patient is going to be admitted to the hospital. Time: 20:41 Vital Signs Temperature 98.7 F 02/27/17 17:39 Pulse Rate 62 02/27/17 17:39 Respiratory Rate 16 02/27/17 17:39 Blood Pressure 100/64 02/27/17 17:39 O2 Sat by Pulse Oximetry 96 02/27/17 17:39 Temperature 99.3 F 02/27/17 20:43 Pulse Rate 101 02/27/17 21:44 Respiratory Rate 18 02/27/17 21:44 Blood Pressure 118/77 02/27/17 21:44 O2 Sat by Pulse Oximetry 96 02/27/17 21:44 Oxygen Delivery Oxygen Delivery Room Air Medical Decision Making - Lab Data Result diagrams: 02/27/17 19:06 02/27/17 18:16 Lab Results 02/27/17 02/27/17 02/27/17 Range/Units 18:16 18:16 18:16 WBC (4.3-11.1) K/mcL RBC (3.82-4.97) M/mcL Hgb (11.5-15.4) g/dL Hct (35.3-44.9) % MCV (83.0-100.0) fL MCH (28.0-33.3) pg MCHC (31.6-35.5) g/dL RDW (11.5-14.5) % Plt Count (140-400) K/mcL MPV Immature Gran % (0-4) % Seg Neutrophils % % Lymphocytes % % Monocytes % % Eosinophils % % Basophils % % Neutrophils # (1.6-8.9) K/mcL Lymphocytes # (0.6-4.6) K/mcL Monocytes # (0.0-1.3) K/mcL Eosinophils # (0.0-0.6) K/mcL Basophils # (0.0-0.2) K/mcL Platelet Estimate (Normal) Large Platelets (Not Present) Immature Plt Fraction (1.1-6.1) % Anisocytosis (Not Present) PT 16.7 H (9.4-12.1) Seconds INR 1.5 APTT 31.6 (26.0-36.0) Seconds D-Dimer 3645 H (0-500) ng/mLFEU Sodium (136-145) mEq/L Potassium (3.5-4.5) mEq/L Chloride (98-109) mEq/L Carbon Dioxide (19-29) mEq/L BUN (7-20) mg/dL Creatinine (0.57-1.11) mg/dL Est GFR ( Amer) (> 60) Est GFR (Non-Af Amer) (> 60) BUN/Creatinine Ratio (6-26) Glucose (70-99) mg/dL Calculated Osmolality (280-300) Lactic Acid (0.5-2.2) mmol/L Calcium (8.6-10.8) mg/dL Total Bilirubin 1.2 (0.2-1.2) mg/dL Direct Bilirubin 0.6 H (0.0-0.5) mg/dL Indirect Bilirubin 0.6 (0.0-1.2) mg/dL AST 25 (5-34) Units/L ALT 21 (0-55) Units/L Alkaline Phosphatase 145 H (38-126) Units/L Troponin I (0-0.03) ng/mL B-Natriuretic Peptide 1115 H (0-100) pg/mL Serum Total Protein 6.7 (6.0-8.3) g/dL Albumin 3.1 L (3.5-5.0) g/dL Globulin 3.6 H (2.4-3.5) g/dL Albumin/Globulin Ratio 0.9 L (1.1-2.2) Lipase 4 L (8-78) Units/L Urine Color (Yellow) Urine Clarity (Clear) Urine pH (5.0-8.0) pH Units Ur Specific [place] (1.010-1.025) Urine Protein (Neg-Trace) mg/dL Urine Glucose (UA) (Normal) mg/dL Urine Ketones (Negative) mg/dL Urine Blood (Negative) Urine Nitrite (Negative) Urine Bilirubin (Negative) Urine Urobilinogen (Normal) mg/dL Ur Leukocyte Esterase (Negative) Ur Culture Indicated? (NO) Specimen Rejected 02/27/17 02/27/17 02/27/17 Range/Units 18:16 18:16 18:16 WBC (4.3-11.1) K/mcL RBC (3.82-4.97) M/mcL Hgb (11.5-15.4) g/dL Hct (35.3-44.9) % MCV (83.0-100.0) fL MCH (28.0-33.3) pg MCHC (31.6-35.5) g/dL RDW (11.5-14.5) % Plt Count (140-400) K/mcL MPV Immature Gran % (0-4) % Seg Neutrophils % % Lymphocytes % % Monocytes % % Eosinophils % % Basophils % % Neutrophils # (1.6-8.9) K/mcL Lymphocytes # (0.6-4.6) K/mcL Monocytes # (0.0-1.3) K/mcL Eosinophils # (0.0-0.6) K/mcL Basophils # (0.0-0.2) K/mcL Platelet Estimate (Normal) Large Platelets (Not Present) Immature Plt Fraction (1.1-6.1) % Anisocytosis (Not Present) PT (9.4-12.1) Seconds INR APTT (26.0-36.0) Seconds D-Dimer (0-500) ng/mLFEU Sodium 135 L (136-145) mEq/L Potassium 3.2 L (3.5-4.5) mEq/L Chloride 91 L (98-109) mEq/L Carbon Dioxide 35 H (19-29) mEq/L BUN 31 H (7-20) mg/dL Creatinine 1.08 (0.57-1.11) mg/dL Est GFR ( Amer) > 60 (> 60) Est GFR (Non-Af Amer) 53 L (> 60) BUN/Creatinine Ratio 29 H (6-26) Glucose 125 H (70-99) mg/dL Calculated Osmolality 288 (280-300) Lactic Acid (0.5-2.2) mmol/L Calcium 9.2 (8.6-10.8) mg/dL Total Bilirubin (0.2-1.2) mg/dL Direct Bilirubin (0.0-0.5) mg/dL Indirect Bilirubin (0.0-1.2) mg/dL AST (5-34) Units/L ALT (0-55) Units/L Alkaline Phosphatase (38-126) Units/L Troponin I 0.01 (0-0.03) ng/mL B-Natriuretic Peptide (0-100) pg/mL Serum Total Protein (6.0-8.3) g/dL Albumin (3.5-5.0) g/dL Globulin (2.4-3.5) g/dL Albumin/Globulin Ratio (1.1-2.2) Lipase (8-78) Units/L Urine Color (Yellow) Urine Clarity (Clear) Urine pH (5.0-8.0) pH Units Ur Specific [place] (1.010-1.025) Urine Protein (Neg-Trace) mg/dL Urine Glucose (UA) (Normal) mg/dL Urine Ketones (Negative) mg/dL Urine Blood (Negative) Urine Nitrite (Negative) Urine Bilirubin (Negative) Urine Urobilinogen (Normal) mg/dL Ur Leukocyte Esterase (Negative) Ur Culture Indicated? (NO) Specimen Rejected Clotted 02/27/17 02/27/17 02/27/17 Range/Units 19:06 19:06 20:50 WBC 11.7 H (4.3-11.1) K/mcL RBC 6.50 H (3.82-4.97) M/mcL Hgb 14.0 (11.5-15.4) g/dL Hct 45.7 H (35.3-44.9) % MCV 70.3 L (83.0-100.0) fL MCH 21.5 L (28.0-33.3) pg MCHC 30.6 L (31.6-35.5) g/dL RDW 23.3 H (11.5-14.5) % Plt Count 253 (140-400) K/mcL MPV TNP Immature Gran % 0.4 (0-4) % Seg Neutrophils % 74.5 % Lymphocytes % 13.7 % Monocytes % 10.4 % Eosinophils % 0.4 % Basophils % 0.6 % Neutrophils # 8.7 (1.6-8.9) K/mcL Lymphocytes # 1.6 (0.6-4.6) K/mcL Monocytes # 1.2 (0.0-1.3) K/mcL Eosinophils # 0.1 (0.0-0.6) K/mcL Basophils # 0.1 (0.0-0.2) K/mcL Platelet Estimate Normal (Normal) Large Platelets Present A (Not Present) Immature Plt Fraction 6.0 (1.1-6.1) % Anisocytosis 1+ A (Not Present) PT (9.4-12.1) Seconds INR APTT (26.0-36.0) Seconds D-Dimer (0-500) ng/mLFEU Sodium (136-145) mEq/L Potassium (3.5-4.5) mEq/L Chloride (98-109) mEq/L Carbon Dioxide (19-29) mEq/L BUN (7-20) mg/dL Creatinine (0.57-1.11) mg/dL Est GFR ( Amer) (> 60) Est GFR (Non-Af Amer) (> 60) BUN/Creatinine Ratio (6-26) Glucose (70-99) mg/dL Calculated Osmolality (280-300) Lactic Acid 1.0 (0.5-2.2) mmol/L Calcium (8.6-10.8) mg/dL Total Bilirubin (0.2-1.2) mg/dL Direct Bilirubin (0.0-0.5) mg/dL Indirect Bilirubin (0.0-1.2) mg/dL AST (5-34) Units/L ALT (0-55) Units/L Alkaline Phosphatase (38-126) Units/L Troponin I (0-0.03) ng/mL B-Natriuretic Peptide (0-100) pg/mL Serum Total Protein (6.0-8.3) g/dL Albumin (3.5-5.0) g/dL Globulin (2.4-3.5) g/dL Albumin/Globulin Ratio (1.1-2.2) Lipase (8-78) Units/L Urine Color Yellow (Yellow) Urine Clarity Clear (Clear) Urine pH 6.0 (5.0-8.0) pH Units Ur Specific [place] 1.018 (1.010-1.025) Urine Protein Negative (Neg-Trace) mg/dL Urine Glucose (UA) Normal (Normal) mg/dL Urine Ketones Negative (Negative) mg/dL Urine Blood Negative (Negative) Urine Nitrite Negative (Negative) Urine Bilirubin Negative (Negative) Urine Urobilinogen Normal (Normal) mg/dL Ur Leukocyte Esterase Negative (Negative) Ur Culture Indicated? NO (NO) Specimen Rejected Attestation Statement - Attestation Attestation: I, Dr. Cagle, examined this patient [id number] and my medical decision- making was reviewed with Dr. Coronel, Resident Physician. I agree with the documented findings, disposition and treatment plan as described except to the extent set forth below. Please see my progress notes for details.
[2017-02-27 21:02] LABS: Bilirubin,Urine Negative (Negative); Blood,Urine Negative (Negative); Clarity,Urine Clear (Clear); Color,Urine Yellow (Yellow); Glucose,Urine (UA) Normal (Normal); Ketones,Urine Negative (Negative); Leukocyte Esterase,Urine Negative (Negative); Nitrite,Urine Negative (Negative); Protein,Urine Negative (Neg-Trace); Specific Gravity,Urine 1.018 (1.010-1.025); Urobilinogen,Urine Normal (Normal)
--- NOTE | 2017-02-27 23:46 | Internal Med History&Physical ---
<Stefano Azar - Last Filed: 02/28/17 04:48> Date of Encounter: 02/28/17 Time of Encounter: 00:01 Assessment and Plan (1) Acute exacerbation of CHF (congestive heart failure) Current visit: Yes Status: Acute -Admission 2 weeks ago for CHF exacerbation -BNP >1000 -CT and CXR performed -ECHO on 02/13 showed EF of 70% with moderate L atrial enlargement Plan -Lasixs given in ED. Will continue. K replaced. -rate control with afib -keep HOB elevated. Bipap Qualifiers: Congestive heart failure type: unspecified congestive heart failure type Qualified Code(s): I50.9 - Heart failure, unspecified (2) Atrial fibrillation with rapid ventricular response Current visit: Yes Status: Acute -New onset afib discovered in [facility] ED -Patient not complaining of heart palpatations/flutter/pain -Patient started on cardizem drip in ED. Current rate 90-110 -Does see Dr. Chu, cardiology, as an outpatient -Vitals stable Plan -Continue cardizem drip -Consult cardio in the morning. (3) COPD (chronic obstructive pulmonary disease) Current visit: Yes Status: Chronic -Continue home medication. Qualifiers: COPD type: emphysema Emphysema type: unspecified Qualified Code(s): J43.9 - Emphysema, unspecified (4) Insulin dependent diabetes mellitus Current visit: Yes Status: Chronic -continue home medication. -Patient on insulin pump. (5) Ascites Current visit: Yes Status: Acute -Patient states that she has had a parenthesis before. Unable to elicit how often or why Plan -Will get ammonia level. Qualifiers: Ascites type: other type Qualified Code(s): R18.8 - Other ascites (6) DVT prophylaxis Current visit: No Status: Acute -lovenox 1mg/kg BID Internal Medicine - H&P: HPI Chief complaint: Chest Pain, Tierdness, SOB Admitted From: Emergency Dept Plans for Post Hospital Care: Home History of present illness: Ms. Alanis is a 51 year old female, PMH: CHF, COPD, DM, admitted for afib and CHF exacerbation. Patient complains of chest heaviness and SOB for the past 2 days. Pain and SOB is worse when she moves, but still present when she is stationary. She was seen at her PCPs office, Dr. Almaguer, and complained of this CP and SOB, so he called a squad for patient to be evaluated in ED. Currently, patient is very somnolent, falls asleep during questions. Admits to non productive cough that is getting worse. Admits to Nausea, no vomitting. States she has had fevers of 102.0 at home. She has been sleeping 9-13 hours a day. Still has SOB, denies chest heaviness or pain. Denies wearing CPAP, ALEXIS. Admits to previous admittance for CHF 2 weeks ago at [facility]. Did not require intubation. Does require 4L of continuous oxygen at home. Continues to smoke. Past Med Surg Social Fam HX - Past Medical History Medical history: arthritis, asthma, CHF, COPD, diabetes, hyperlipidemia, hypertension, kidney stones, other Psychiatric history: depression - Past Surgical History Surgical History: cholecystectomy, other - Social History Smoking Status: Current every day smoker Smokeless Tobacco Status: No Alcohol use: none Drug use: none - Family History Father Family Member Ethnicity: Non- Living Status: Still Living Hx Family Cardiac Disorders: Yes (CABG x3, HTN) Hx Family Respiratory Disorders: Yes (COPD) Hx Family Cancer: No Hx Family GI Disorders: No Hx Family Endocrine Disorder: Yes Hx Family Neuromuscular Disorders: No Hx Family Neurologic Disorders: No Hx Family HEENT Disorders: No Hx Family Autoimmune Disorders: No Mother Family Member Ethnicity: Non- Living Status: Still Living Hx Family Cardiac Disorders: Yes Hx Family Respiratory Disorders: No Hx Family Cancer: Yes Hx Family GI Disorders: No Hx Family Endocrine Disorder: Yes Hx Family Neuromuscular Disorders: No Hx Family Neurologic Disorders: No Hx Family HEENT Disorders: No Hx Family Autoimmune Disorders: No Internal Medicine - H&P: Meds Atorvastatin Calcium [Lipitor] 80 mg PO DAILY 06/30/15 [History] Budesonide/Formoterol 160/4.5 [Symbicort] 2 puff IH BID 06/30/15 [History] Montelukast [Singulair] 10 mg PO HS 06/30/15 [History] Pregabalin [Lyrica] 100 mg PO TID 06/30/15 [History] Tiotropium [Spiriva] 18 mcg IH DAILY 06/30/15 [History] Citalopram [CeleXA] 20 mg PO DAILY 08/09/15 [History] Albuterol Neb [Proventil Neb] 2.5 mg IH Q6H PRN 04/17/16 [History] Albuterol Sulfate [Albuterol Inhaler] 2 puff IH Q4H PRN 04/17/16 [History] Loratadine [Claritin] 10 mg PO DAILY 04/17/16 [History] Metformin HCl [Metformin HCl ER] 1,000 mg PO BID 04/17/16 [History] Metoprolol [Lopressor] 25 mg PO BID 04/17/16 [History] Oxygen 4 l NS AD 04/17/16 [History] Pantoprazole Sodium [Protonix] 40 mg PO DAILY 04/17/16 [History] Potassium Chloride [K-Tab ER] 20 meq PO DAILY 04/17/16 [History] Lipase/Protease/Amylase [Zenpep 40,000 Units Capsule] 20,000 units PO TIDWM 08/21/16 [History] Losartan Potassium [Cozaar] 50 mg PO DAILY 08/21/16 [History] Insulin ASPART [Novolog Flexpen] 8 - 20 unit SQ TIDWM 02/13/17 [History] Insulin Degludec [Tresiba Flextouch U-100] 60 units SQ DAILY 02/13/17 [History] Metolazone [Zaroxolyn] 2.5 mg PO 2XW 02/13/17 [History] Nitroglycerin [Nitrostat] 0.4 mg SL Q5M PRN 02/13/17 [History] Polyethylene Glycol 3350 17 gm PO BID PRN 02/13/17 [History] Ranitidine HCl [Acid Plumber And Tinner] 150 mg PO BID PRN 02/13/17 [History] Aspirin Enteric Coated [Aspirin EC] 81 mg PO DAILY tablet. 02/15/17 [Rx] Acetaminophen [Tylenol Arthritis] 650 mg PO Q8H 02/27/17 [History] Cholecalciferol (D-3) [Vitamin D] 5,000 unit PO BID 02/27/17 [History] Fluticasone Propionate Nasal [Flonase] 100 mcg NS DAILY 02/27/17 [History] Isosorbide MONOnitrate [Isosorbide Mononitrate ER] 120 mg PO DAILY 02/27/17 [ History] Allergies amylase [From Creon] Adverse Reaction (Verified 02/13/17 07:44) Diarrhea estrogens, conjugated [From Premarin] Adverse Reaction (Verified 02/13/17 07:44) Anxiety hydrocodone [From Vicodin] Adverse Reaction (Verified 02/13/17 07:44) Anxiety lipase [From Creon] Adverse Reaction (Verified 02/13/17 07:44) Diarrhea metronidazole [From Flagyl] Adverse Reaction (Verified 02/13/17 07:44) See Comments YEAST INFECTION protease [From Creon] Adverse Reaction (Verified 02/13/17 07:44) Diarrhea Tetracycline Adverse Reaction (Verified 02/13/17 07:44) Anxiety tramadol [From Ultram] Adverse Reaction (Verified 02/13/17 07:44) Muscle Pain All Systems PM: A 10-system review of systems was performed and is negative for pertinent findings except as documented above in the HPI. - Constitutional Constitutional: as per HPI - Cardiovascular Cardiovascular ROS IM: as per HPI - Respiratory Respiratory: as per HPI - Constitutional Vitals: Temp Pulse Resp BP Pulse Ox 97.8 F 106 20 120/74 95 02/27/17 23:32 02/27/17 23:32 02/27/17 23:32 02/27/17 23:32 02/27/17 23:32 General appearance: Present: cooperative, answers questions appropriately Exam: Very lethargic - Head Head exam: Present: atraumatic, normocephalic - Respiratory Respiratory exam: Present: decreased breath sounds. Absent: rhonchi, wheezes - Cardiovascular Cardiovascular exam: Present: irregular rhythm, tachycardia. Absent: diastolic murmur, systolic murmur - GI/Abdominal GI/Abdominal exam: Present: distended, soft, no peritoneal signs. Absent: firm , tenderness - Extremities Exam Additional comments: bilateral moderate peripheral edema - Neurological Exam Neurological exam: Absent: alert Additional comments: patient lethargic. Able to arouse and answered questions appropriately. falls back to sleep during questioning. Internal Med - H&P Results - Labs CBC & Chem 7: 02/27/17 19:06 02/27/17 18:16 <Annabella Monte - Last Filed: 02/28/17 06:45> Date of Encounter: 02/28/17 Internal Medicine - H&P: HPI History of present illness: Ms. Alanis is a 51 year old female All Systems PM: A 10-system review of systems was performed and is negative for pertinent findings except as documented above in the HPI. - Constitutional Vitals: Temp Pulse Resp BP Pulse Ox 98.9 F 105 17 129/90 92 02/28/17 04:07 02/28/17 04:07 02/28/17 04:07 02/28/17 04:07 02/28/17 04:07 Internal Med - H&P Results - Labs CBC & Chem 7: 02/27/17 19:06 02/27/17 18:16 Labs: Cardiac Enzymes 02/28/17 Range/Units 01:09 Troponin I 0.01 (0-0.03) ng/mL - ABG Interpretation ABG results: 02/27/17 23:55 ABG pH 7.38 ABG pCO2 65 H ABG pO2 62 L ABG HCO3 38.5 H ABG Total CO2 40.5 H ABG O2 Saturation 91 L ABG Base Excess 10.1 H - Attending Attestation Patient seen and examined, agree with assessment and plan of PGY-1 Stefano Taveras. Patient with new onset atrial fibrillation with RVR in setting of CHF exacerbation. Given diltiazem in ER which patient tolerating well and will continue (CCB not ideal in patient with decompensated heart failure). Cardiology consulted for assistance. Patient somnolent on initial exam but this improved on subsequent evaluations overnight.
[2017-02-28 00:12] LABS: ABG Base Excess 10.1 mEq/L (-2.0 to 3.0); ABG HCO3 38.5 mEQ/L (21-27); ABG Oxygen Saturation 91 % (95-98); ABG PCO2 65 mmHg (35-45); ABG PH 7.38 pH Units (7.32-7.45); ABG PO2 62 mmHg (85-104); ABG TCO2 40.5 mEq/L (20-26); Blood Gas FiO2 36 %
[2017-02-28] MEDS: Acetaminophen 325 MG TABLET PO SCH ×3 (02:40→16:42)
[2017-02-28] MEDS: Albuterol 2.5 MG/3 ML NEBULIZER IH SCH ×4 (04:10→22:03)
[2017-02-28] MEDS: *HR* Enoxaparin 100 MG/ML SYRINGE SQ SCH ×2 (06:21→19:43)
--- NOTE | 2017-02-28 08:27 | Cardiology Consult Note ---
Date of Encounter: 02/28/17 Time of Encounter: 08:30 Assessment and Plan (1) Atrial fibrillation with rapid ventricular response Current Visit: Yes Status: Acute Per Cardiology: Apparent new onset atrial fibrillation with RVR. 24 hr tele with average heart rate 96, A. fib/flutter noted. Currently sinus rhythm in the 50s to 60s on telemetry. On Cardizem drip at 2.5 mg hour, will wean to off. Patient on Lopressor 25 mg by mouth twice a day as outpatient-- will resume. Current systolic blood pressure in the 100s to 120s, we'll decrease dose of ARB. Mg = 1.9, TSH noted to be 0.259-- management per primary service. Regarding long-term anticoagulation, [id number] = at least 5. Currently on Lovenox-- consider switching to heparin if kidney function worsens. We'll need to address long-term anticoagulation once patient able to have discussion on options. No family currently present at bedside. (2) Elevated d-dimer Current Visit: Yes Status: Acute Per Cardiology: D-dimer elevated at 3645, CT negative for PE. (3) Acute exacerbation of CHF (congestive heart failure) Current Visit: Yes Status: Acute Per Cardiology: Recent echo February 2017 showed EF 70%, moderate diastolic dysfunction, mildly dilated right ventricle with normal function, moderately dilated left atrium, mildly dilated right atrium, no significant valvular dysfunction, mild to moderate pulmonary hypertension, and no segmental wall motion abnormalities. BNP elevated at 1115. According to records patient +550ml hospital stay. Appears to be received one dose of IV Lasix 40 mg. We'll start IV Lasix 20 mg IV twice a day. Strict I&O, daily weights, 1.5 L fluid restriction, will apply bilateral JASE hose. Appears to have underlying history of CK D stage IIIa, kidney function currently around baseline, continue to monitor closely with diuresis. Potassium replaced by primary service. Qualifiers: Congestive heart failure type: diastolic Qualified Code(s): I50.33 - Acute on chronic diastolic (congestive) heart failure (4) Hypokalemia Current Visit: No Status: Acute Per Cardiology: Replaced. (5) CAD (coronary artery disease) Current Visit: Yes Status: Chronic Per Cardiology: History of CAD with last heart catheterization in July 2015 which showed left main 20%, proximal LAD 50% with FFR findings not consistent with functional stenosis, circumflex 20%, OM1 20%, mid RCA 30%, and right PDA 60% small with diffuse disease. Nuclear stress test negative for ischemia December 2016. Trops negative 2. On aspirin, statin, ARB. We'll resume home dose of beta airam. Qualifiers: Coronary Disease-Associated Artery/Lesion type: [place] artery [place] vs. transplanted heart: [place] heart Associated angina: angina presence unspecified Qualified Code(s): I25.10 - Atherosclerotic heart disease of [place] coronary artery without angina pectoris Discussion w patient/family: Thank you for involving us in the care of your patient. Please call with any questions. Will discuss and review with Dr. Veloz. History of Present Illness Consult date: 02/28/17 Requesting physician: Annabella Monte Consult reason: New afib Chief complaint: Fatigue History of present illness: Previous records reviewed: "Ms. Alanis is a 51 year old female, PMH: CHF, COPD, DM, admitted for afib and CHF exacerbation. Patient complains of chest heaviness and SOB for the past 2 days. Pain and SOB is worse when she moves, but still present when she is stationary. She was seen at her PCPs office, Dr. Almaguer, and complained of this CP and SOB, so he called a squad for patient to be evaluated in ED. Currently, patient is very somnolent, falls asleep during questions. Admits to non productive cough that is getting worse. Admits to Nausea, no vomiting. States she has had fevers of 102.0 at home. She has been sleeping 9-13 hours a day". Cardiology C/S for afib. Patient very somnolent upon exam today. Currently wearing BiPAP. Patient was alert and oriented 3, however fell sleep during questions. Unable to obtain detailed history. + brief eye opening to commands, +spontaneous movement of all 4 extremities noted. She appears to currently deny any chest pain or palpitations. Past Med Surg Social Fam HX - Past Medical History Source: unable to obtain, old records reviewed Medical history: arthritis, asthma, CHF, COPD, diabetes, hyperlipidemia, hypertension, kidney stones, other Psychiatric history: depression - Past Surgical History Surgical History: cholecystectomy, other - Social History Smoking Status: Current every day smoker Smokeless Tobacco Status: No Alcohol use: none Drug use: none - Family History Father Adopted: No Age: 70 Family Member Ethnicity: Non- Living Status: Still Living Hx Family Cardiac Disorders: Yes (CABG x3, HTN) Hx Family Respiratory Disorders: Yes (COPD) Hx Family Cancer: No Hx Family GI Disorders: No Hx Family Genitourinary Disorders: No Hx Family Endocrine Disorder: Yes Hx Family Musculoskeletal Disorders: No Hx Family Neuromuscular Disorders: No Hx Family Neurologic Disorders: No Hx Family HEENT Disorders: No Hx Family Autoimmune Disorders: No Hx Family Reproductive Disorders: No Hx Family Psychosocial Disorders: No Hx Family Medical Disorders: Yes (diabetic, htn) Mother Family Member Ethnicity: Non- Living Status: Still Living Hx Family Cardiac Disorders: Yes Hx Family Respiratory Disorders: No Hx Family Cancer: Yes Hx Family GI Disorders: No Hx Family Endocrine Disorder: Yes Hx Family Neuromuscular Disorders: No Hx Family Neurologic Disorders: No Hx Family HEENT Disorders: No Hx Family Autoimmune Disorders: No Hx Family Reproductive Disorders: No Hx Family Psychosocial Disorders: No Hx Family Medical Disorders: No Medications and Allergies Atorvastatin Calcium [Lipitor] 80 mg PO DAILY 06/30/15 [History] Budesonide/Formoterol 160/4.5 [Symbicort] 2 puff IH BID 06/30/15 [History] Montelukast [Singulair] 10 mg PO HS 06/30/15 [History] Pregabalin [Lyrica] 100 mg PO TID 06/30/15 [History] Tiotropium [Spiriva] 18 mcg IH DAILY 06/30/15 [History] Citalopram [CeleXA] 20 mg PO DAILY 08/09/15 [History] Albuterol Neb [Proventil Neb] 2.5 mg IH Q6H PRN 04/17/16 [History] Albuterol Sulfate [Albuterol Inhaler] 2 puff IH Q4H PRN 04/17/16 [History] Loratadine [Claritin] 10 mg PO DAILY 04/17/16 [History] Metformin HCl [Metformin HCl ER] 1,000 mg PO BID 04/17/16 [History] Metoprolol [Lopressor] 25 mg PO BID 04/17/16 [History] Oxygen 4 l NS AD 04/17/16 [History] Pantoprazole Sodium [Protonix] 40 mg PO DAILY 04/17/16 [History] Potassium Chloride [K-Tab ER] 20 meq PO DAILY 04/17/16 [History] Lipase/Protease/Amylase [Zenpep Dr 40,000 Units Capsule] 20,000 units PO TIDWM 08/21/16 [History] Losartan Potassium [Cozaar] 50 mg PO DAILY 08/21/16 [History] Insulin ASPART [Novolog Flexpen] 8 - 20 unit SQ TIDWM 02/13/17 [History] Insulin Degludec [Tresiba Flextouch U-100] 60 units SQ DAILY 02/13/17 [History] Metolazone [Zaroxolyn] 2.5 mg PO 2XW 02/13/17 [History] Nitroglycerin [Nitrostat] 0.4 mg SL Q5M PRN 02/13/17 [History] Polyethylene Glycol 3350 17 gm PO BID PRN 02/13/17 [History] Ranitidine HCl [Acid [place]] 150 mg PO BID PRN 02/13/17 [History] Aspirin Enteric Coated [Aspirin EC] 81 mg PO DAILY tablet. 02/15/17 [Rx] Acetaminophen [Tylenol Arthritis] 650 mg PO Q8H 02/27/17 [History] Cholecalciferol (D-3) [Vitamin D] 5,000 unit PO BID 02/27/17 [History] Fluticasone Propionate Nasal [Flonase] 100 mcg NS DAILY 02/27/17 [History] Isosorbide MONOnitrate [Isosorbide Mononitrate ER] 120 mg PO DAILY 02/27/17 [ History] Allergies amylase [From Creon] Adverse Reaction (Verified 02/13/17 07:44) Diarrhea estrogens, conjugated [From Premarin] Adverse Reaction (Verified 02/13/17 07:44) Anxiety hydrocodone [From Vicodin] Adverse Reaction (Verified 02/13/17 07:44) Anxiety lipase [From Creon] Adverse Reaction (Verified 02/13/17 07:44) Diarrhea metronidazole [From Flagyl] Adverse Reaction (Verified 02/13/17 07:44) See Comments YEAST INFECTION protease [From Creon] Adverse Reaction (Verified 02/13/17 07:44) Diarrhea Tetracycline Adverse Reaction (Verified 02/13/17 07:44) Anxiety tramadol [From Ultram] Adverse Reaction (Verified 02/13/17 07:44) Muscle Pain ROS unobtainable: other (somnolent) All Systems Review: A 10-system review of systems was performed and is negative for pertinent findings except as documented above in the HPI. - Cardiovascular Cardiovascular: as per HPI Physical Examination Vital Signs, Last 4 Hours Temp Pulse Resp BP Pulse Ox 02/28/17 07:04 97.8 F 59 18 108/72 91 General: No Apparent Distress HEENT: Atraumatic, Normocephaly Cardiac: Reg Rate and Rhythm, Normal S1 and S2, No Murmur Lungs: Other (diminished throughout) Neuro: Other (Very somnolent, alert and oriented 3, brief opening of eyes to commands, positive spontaneous movement of extremities noted) Abdomen: Soft, Non-Tender (distended), Other Skin: No rashes noted on visualized skin Musculoskeletal: No Chest Wall Tenderness Extremities: Other (+1 pitting edema to bilateral lower extremities left slightly greater than right) Results 02/27/17 19:06 02/28/17 08:39 Lab Results Laboratory Tests 02/27/17 02/27/17 02/27/17 18:16 18:16 18:16 INR 1.5 D-Dimer 3645 H Potassium Magnesium AST 25 ALT 21 Troponin I B-Natriuretic Peptide 1115 H TSH 02/27/17 02/27/17 02/28/17 18:16 18:16 01:04 INR D-Dimer Potassium 3.2 L Magnesium AST ALT Troponin I 0.01 B-Natriuretic Peptide TSH 0.259 L 02/28/17 02/28/17 01:09 01:09 INR D-Dimer Potassium Magnesium 1.9 AST ALT Troponin I 0.01 B-Natriuretic Peptide TSH ITS Impressions Chest CTA 02/27/17 17:42 IMPRESSION: 1. No evidence of pulmonary embolism or acute pulmonary abnormality. 2. No acute abnormality of the thoracic aorta. 3. Stable chronic lung findings as above. 4. Moderate to large volume intra-abdominal ascites D/ / Oscar Fernandez MD / Oscar Fernandez MD Interpreting Provider: Oscar Fernandez MD Chest X-Ray 02/27/17 17:42 IMPRESSION: Cardiomegaly with pulmonary vascular congestion with trace right pleural effusion. Overall findings are not significant changed since 02/12/2017. D/ / Valeri Wheeler MD / Valeri Wheeler MD Interpreting Provider: Valeri Wheeler MD Intake & Output 02/25/17 02/26/17 02/27/17 02/28/17 23:59 23:59 23:59 23:59 Intake Total 1200 / 1200 200 / 200 Output Total 850 / 850 Balance 1200 / 1200 -650 / -650 Weight 99.79 kg 100.8 kg Active Medications Acetaminophen (Tylenol) 650 mg PO Q8H KIRK Stop: 08/30/17 00:31 Last Admin: 02/28/17 02:40 Dose: Not Given Albuterol Sulfate (Proventil Neb) 2.5 mg IH [id number] KIRK PRN Reason: Protocol Stop: 08/30/17 04:01 Last Admin: 02/28/17 04:10 Dose: 2.5 mg Albuterol Sulfate (Albuterol Inhaler) 2 puff IH Q4H PRN PRN Reason: Shortness Of Breath Stop: 08/30/17 00:26 Aspirin (Aspirin Ec) 81 mg PO DAILY KIRK Stop: 08/30/17 09:01 Atorvastatin Calcium (Lipitor) 80 mg PO DAILY KIRK Stop: 08/30/17 09:01 Budesonide/Formoterol Fumarate (Symbicort) 2 puff IH BIDRESP KIRK PRN Reason: Protocol Stop: 08/30/17 10:01 Citalopram Hydrobromide (Celexa) 20 mg PO DAILY KIRK Stop: 08/30/17 09:01 Enoxaparin Sodium (Lovenox) 100 mg 1 mg/kg (100 mg) SQ Q12HR KIRK PRN Reason: Protocol Stop: 08/30/17 06:01 Last Admin: 02/28/17 06:21 Dose: 100 mg Diltiazem HCl 125 mg/ Dextrose 125 mls @ 5 mls/hr IVC .Q24H KIRK PRN Reason: 5 MG/HR Stop: 08/29/17 20:46 Last Admin: 02/27/17 21:42 Dose: 5 mg/hr, 5 mls/hr Insulin Human Lispro (Humalog) 8 - 20 units SQ TIDWM KIRK Stop: 08/30/17 08:01 Losartan Potassium (Cozaar) 50 mg PO DAILY KIRK Stop: 08/30/17 09:01 Metolazone (Zaroxolyn) 2.5 mg PO 2XW KIRK Stop: 08/31/17 09:01 Montelukast Sodium (Singulair) 10 mg PO HS KIRK Stop: 08/30/17 21:01 Pharmacy Profile Note (Patient Taking Own Medication) 0 each SQ DAILY KIRK Stop: 08/30/17 09:01 Pharmacy Profile Note (Patient Taking Own Medication) 0 each PO TIDWM KIRK Stop: 08/30/17 08:01 Potassium Chloride (Potassium Chloride) 40 meq PO DAILY KIRK Stop: 08/30/17 09:01 Pregabalin (Lyrica) 100 mg PO TID KIRK Stop: 08/30/17 09:01 Tiotropium [place] (Spiriva) 18 mcg IH DAILY [facility] PRN Reason: Protocol Stop: 08/30/17 09:01 Vitamin D (Vitamin D) 5,000 unit PO BID KIRK Stop: 08/30/17 09:01 - Imaging and Cardiology Chest Xray: report reviewed Stress Test: report reviewed Echo: report reviewed Cardiac cath: report reviewed - EKG Interpretation EKG results cardiology: personally reviewed (A. fib with RVR in the 120s), other (24 hour times reviewed with average heart rate 96, A. fib/flutter, currently sinus rhythm at 58) Consult Discharge Plan - Plan Referrals: Iliana Almaguer MD [Primary Care Provider] -
[2017-02-28 09:00] LABS: BUN/Creatinine Ratio 30 (6-26); Blood Urea Nitrogen 33 mg/dL (7-20); Calcium 8.9 mg/dL (8.6-10.8); Carbon Dioxide 34 mEq/L (19-29); Chloride 95 mEq/L (98-109); Glucose 309 mg/dL (70-99); Osmolality,Calculated 301 (280-300); Sodium 136 mEq/L (136-145); eGFR For African Americans > 60 (> 60); eGFR For Non-African Americans 52 (> 60)
[2017-02-28] MEDS: Tiotropium 18 MCG inhalation IH SCH (09:49)
[2017-02-28] MEDS: Budesonide/Formoterol 160/4.5 MDI IH SCH ×2 (09:50→22:03)
[2017-02-28] MEDS: Insulin LISPRO 300 UNITS/3 ML VIAL SQ SCH ×2 (11:07→16:50)
[2017-02-28] MEDS: Pregabalin 50 MG CAPSULE PO SCH ×3 (11:08→20:27)
[2017-02-28] MEDS: Aspirin Enteric Coated 81 MG Tablet PO SCH (11:08)
[2017-02-28] MEDS: Potassium Chloride Elixir 20 MEQ/15 ML UDC PO SCH (11:09)
[2017-02-28] MEDS: Cholecalciferol (D-3) 1,000 UNIT TABLET PO SCH ×2 (11:09→20:27)
[2017-02-28] MEDS: ZENPEP 40000 UNIT PO SCH ×2 (11:09→16:43)
[2017-02-28] MEDS: TRESIBA U SQ SCH (11:09)
[2017-02-28] MEDS: Furosemide 20 MG/2 ML VIAL IVP SCH ×2 (11:20→16:49)
--- NOTE | 2017-02-28 17:15 | Internal Med Progress Note ---
Date of Encounter: 02/28/17 Time of Encounter: 17:13 - Assessment and plan (1) Acute exacerbation of CHF (congestive heart failure) Current Visit: Yes Status: Acute Assessment and plan: CHF with preserved ejection fraction. will continue with iv lasix bid and metolazone. monitor ins/outs Qualifiers: Congestive heart failure type: unspecified congestive heart failure type Qualified Code(s): I50.9 - Heart failure, unspecified (2) Atrial fibrillation with rapid ventricular response Current Visit: Yes Status: Acute Assessment and plan: rate cnotrolled, benefits from AC. currently on lovenox full dose. follow cardiology recommendations. (3) CAD (coronary artery disease) Current Visit: Yes Status: Chronic Qualifiers: Coronary Disease-Associated Artery/Lesion type: [place] artery [place] vs. transplanted heart: [place] heart Associated angina: angina presence unspecified Qualified Code(s): I25.10 - Atherosclerotic heart disease of [place] coronary artery without angina pectoris (4) COPD (chronic obstructive pulmonary disease) Current Visit: Yes Status: Chronic Qualifiers: COPD type: emphysema Emphysema type: unspecified Qualified Code(s): J43.9 - Emphysema, unspecified (5) Insulin dependent diabetes mellitus Current Visit: Yes Status: Chronic Assessment and plan: insulin therapy. (6) DVT prophylaxis Current Visit: No Status: Acute (7) Hypokalemia Current Visit: No Status: Acute Assessment and plan: corrected, will continue monitoring and supplement accordingly. - Subjective Interval history: Patient seen and examined, poor historian, feels better than yesterday. - Constitutional Vitals: Temp Pulse Resp BP Pulse Ox 97.5 F L 66 16 105/59 95 02/28/17 15:37 02/28/17 15:37 02/28/17 15:47 02/28/17 15:37 02/28/17 16:00 General appearance: Present: cooperative, A&O X 3, pleasant, answers questions appropriately - Head Head exam: Present: atraumatic, normocephalic - Eye Eye exam: Present: PERRL, conjuntiva pink, sclera anicteric Pupils: Present: PERRL - Neck Neck exam general surgery: Present: supple, trachea midline. Absent: lymphadenopathy - Respiratory Respiratory exam: Present: decreased breath sounds. Absent: accessory muscle use, rales, rhonchi, wheezes - Cardiovascular Cardiovascular exam: Present: +S1, +S2. Absent: diastolic murmur, gallop, rubs , systolic murmur - GI/Abdominal GI/Abdominal exam: Present: normal bowel sounds, soft, no peritoneal signs. Absent: distended, tenderness - Extremities Exam Extremities exam: Present: warm, radial pulses palpable and symetrical. Absent : calf tenderness, cyanotic, pedal edema - Neurological Exam Neurological exam: Present: CN II-XII intact, oriented X3, no focal deficits. Absent: pronater drift, facial droop, speech deficit - Skin Skin exam: Present: dry, intact Internal Medicine: Result - Labs CBC & Chem 7: 02/27/17 19:06 02/28/17 08:39 Labs: BMP 02/28/17 08:39 Sodium 136 Potassium 4.0 Chloride 95 L Carbon Dioxide 34 H BUN 33 H Creatinine 1.10 Glucose 309 H Calcium 8.9 Cardiac Enzymes 02/28/17 02/28/17 Range/Units 01:09 08:39 Troponin I 0.01 0.02 (0-0.03) ng/mL - ABG Interpretation ABG results: ABG ABG pH 7.38 pH Units (7.32-7.45) 02/27/17 23:55 ABG pCO2 65 mmHg (35-45) H 02/27/17 23:55 ABG pO2 62 mmHg (85-104) L 02/27/17 23:55 ABG O2 Saturation 91 % (95-98) L 02/27/17 23:55 PT/INR, D-dimer PT 16.7 Seconds (9.4-12.1) H 02/27/17 18:16 D-Dimer 3645 ng/mLFEU (0-500) H 02/27/17 18:16 Consult Discharge Plan - Plan Referrals: Iliana Almaguer MD [Primary Care Provider] -
[2017-02-28] MEDS ORDERED: Insulin DETEMIR 100 UNIT/ML X5UNITS SQ SCH ×2 (21:00)
[2017-02-28] MEDS: Insulin DETEMIR 100 UNIT/ML X5UNITS SQ SCH (21:24)
[2017-03-01] MEDS: Acetaminophen 325 MG TABLET PO SCH ×4 (00:45→23:53)
[2017-03-01] MEDS: Albuterol 2.5 MG/3 ML NEBULIZER IH SCH ×4 (04:15→23:04)
[2017-03-01] MEDS: *HR* Enoxaparin 100 MG/ML SYRINGE SQ SCH (05:38)
[2017-03-01 05:59] LABS: Eosinophils % 0.1 %
[2017-03-01 06:01] LABS: Basophils % 0.2 %; Hematocrit 46.7 % (35.3-44.9); Hemoglobin 14.1 g/dL (11.5-15.4); Immature Granulocytes % 0.3 % (0-4); Immature Platelets 5.1 % (1.1-6.1); Lymphocytes % 11.8 %; Mean Corpuscular HGB Conc 30.2 g/dL (31.6-35.5); Mean Corpuscular Hemoglobin 21.9 pg (28.0-33.3); Mean Corpuscular Volume 72.5 fL (83.0-100.0); Monocytes % 8.2 %; Red Blood Count 6.44 M/mcL (3.82-4.97); Red Cell Distribution Width 23.7 % (11.5-14.5); Segmented Neutrophils % 79.4 %
[2017-03-01 06:06] LABS: Lymphocytes # 1.5 K/mcL (0.6-4.6); Neutrophils # 9.8 K/mcL (1.6-8.9)
[2017-03-01 06:07] LABS: Mean Platelet Volume 10.5 fL (9.4-12.4); Platelet Count 244 K/mcL (140-400)
[2017-03-01 06:15] LABS: Calcium 9.3 mg/dL (8.6-10.8); Potassium 3.8 mEq/L (3.5-4.5)
[2017-03-01 06:47] LABS: Anisocytosis 2+ (Not Present); Hypochromasia Present (Not Present); Large Platelets Present (Not Present); Microcytosis Present (Not Present); Platelet Estimate Normal (Normal)
[2017-03-01 06:48] LABS: Reactive Lymphocytes Present (Not Present)
[2017-03-01] MEDS: Pregabalin 50 MG CAPSULE PO SCH ×2 (08:00→19:56)
[2017-03-01] MEDS: Aspirin Enteric Coated 81 MG Tablet PO SCH (08:00)
[2017-03-01] MEDS: Potassium Chloride Elixir 20 MEQ/15 ML UDC PO SCH ×2 (08:01→13:10)
[2017-03-01] MEDS: ZENPEP 40000 UNIT PO SCH ×3 (08:01→17:31)
[2017-03-01] MEDS: Furosemide 20 MG/2 ML VIAL IVP SCH (08:01)
[2017-03-01] MEDS: TRESIBA U SQ SCH (08:01)
[2017-03-01] MEDS: Cholecalciferol (D-3) 1,000 UNIT TABLET PO SCH (08:01)
[2017-03-01] MEDS: Insulin LISPRO 300 UNITS/3 ML VIAL SQ SCH ×3 (08:05→17:23)
[2017-03-01] MEDS: Insulin DETEMIR 100 UNIT/ML X5UNITS SQ SCH ×2 (08:34→19:58)
--- NOTE | 2017-03-01 08:42 | Cardiology Progress Note ---
Date of Encounter: 03/01/17 Time of Encounter: 08:30 Assessment and Plan (1) Atrial fibrillation with rapid ventricular response Current Visit: Yes Status: Acute Per Cardiology: Apparent new onset atrial fibrillation with RVR. 24 hr tele with average heart rate 68, sinus rhythm. On home dose of Lopressor 25 mg PO BID. Current systolic blood pressure in the 100s. Mg = 1.9, TSH noted to be 0.259-- management per primary service. Regarding long-term anticoagulation, [id number] = at least 5. Currently on Lovenox. Discussed with patient and Dr. Veloz, patient agreeable to DOAC-- angulo check for Eliquis 5mg PO BID resulted in cost for patient of $0. Will DC Lovenox and start Eliquis now. Cardiology will sign off, re-consult PRN, f/u scheduled. (2) Elevated d-dimer Current Visit: Yes Status: Acute Per Cardiology: D-dimer elevated at 3645, CT negative for PE. (3) Acute exacerbation of CHF (congestive heart failure) Current Visit: Yes Status: Acute Per Cardiology: Recent echo February 2017 showed EF 70%, moderate diastolic dysfunction, mildly dilated right ventricle with normal function, moderately dilated left atrium, mildly dilated right atrium, no significant valvular dysfunction, mild to moderate pulmonary hypertension, and no segmental wall motion abnormalities. BNP 1115. According to records patient +200ml during hospital stay. Appears to have underlying history of CKD stage IIIa. On lasix 2omg IV BID and metolazone- - kidney fxn slightly worsened, will convert to Lasix 2omg PO daily, stop metolazone. Will decrease Kdur to 20meq PO daily. Continue strict I&O, daily weights, 1.5 L fluid restriction, and bilateral JASE hose. Qualifiers: Congestive heart failure type: diastolic Qualified Code(s): I50.33 - Acute on chronic diastolic (congestive) heart failure (4) Hypokalemia Current Visit: No Status: Resolved Per Cardiology: Replaced. (5) CAD (coronary artery disease) Current Visit: Yes Status: Chronic Per Cardiology: History of CAD with last heart catheterization in July 2015 which showed left main 20%, proximal LAD 50% with FFR findings not consistent with functional stenosis, circumflex 20%, OM1 20%, mid RCA 30%, and right PDA 60% small with diffuse disease. Nuclear stress test negative for ischemia December 2016. Trops negative 2. On aspirin, statin, ARB, BB. CP free. Qualifiers: Coronary Disease-Associated Artery/Lesion type: [place] artery [place] vs. transplanted heart: [place] heart Associated angina: angina presence unspecified Qualified Code(s): I25.10 - Atherosclerotic heart disease of [place] coronary artery without angina pectoris Discussion w patient/family: Thank you for involving us in the care of your patient. Please call with any questions. Subjective Principal diagnosis: Afib RVR, CHF Interval history: Patient denies any concerns or complaints overnight. She reports overall her breathing has improved. She denies any chest pain or palpitations. Denies any awareness to any active bleeding or blood loss. Remains agreeable for evaluation of Eliquis or anticoagulation. Objective Vital Signs, Last 4 Hours Temp Pulse Resp BP Pulse Ox 03/01/17 07:27 97.6 F 72 18 106/61 98 General: Conversant, No Apparent Distress HEENT: Atraumatic, Normocephaly Cardiac: Reg Rate and Rhythm, Normal S1 and S2, No Murmur Lungs: Other (decreased to bases, few scattered rhonchi) Neuro: Alert and responsive, No focal deficits noted Extremities: Other (+1 pitting edema bilateral LE) Results 03/01/17 05:37 03/01/17 05:37 Lab Results Laboratory Tests 02/28/17 03/01/17 01:04 05:37 Potassium 3.8 Creatinine 1.19 H Est GFR (Non-Af Amer) 47 L TSH 0.259 L Free T4 1.00 Intake & Output 02/26/17 02/27/17 02/28/17 03/01/17 23:59 23:59 23:59 23:59 Intake Total 1200 / 1200 400 / 400 Output Total 850 / 850 550 / 550 Balance 1200 / 1200 -450 / -450 -550 / -550 Weight 99.79 kg 100.8 kg Active Medications Acetaminophen (Tylenol) 650 mg PO Q8H KIRK Stop: 08/30/17 00:31 Last Admin: 03/01/17 08:01 Dose: 650 mg Albuterol Sulfate (Proventil Neb) 2.5 mg IH [id number] KIRK PRN Reason: Protocol Stop: 08/30/17 04:01 Last Admin: 03/01/17 04:15 Dose: 2.5 mg Albuterol Sulfate (Albuterol Inhaler) 2 puff IH Q4H PRN PRN Reason: Shortness Of Breath Stop: 08/30/17 00:26 Aspirin (Aspirin Ec) 81 mg PO DAILY KIRK Stop: 08/30/17 09:01 Last Admin: 03/01/17 08:00 Dose: 81 mg Atorvastatin Calcium (Lipitor) 80 mg PO DAILY KIRK Stop: 08/30/17 09:01 Last Admin: 03/01/17 08:00 Dose: 80 mg Budesonide/Formoterol Fumarate (Symbicort) 2 puff IH BIDRESP KIRK PRN Reason: Protocol Stop: 08/30/17 10:01 Last Admin: 02/28/17 22:03 Dose: 2 puff Citalopram Hydrobromide (Celexa) 20 mg PO DAILY KIRK Stop: 08/30/17 09:01 Last Admin: 03/01/17 08:00 Dose: 20 mg Enoxaparin Sodium (Lovenox) 100 mg 1 mg/kg (100 mg) SQ Q12HR [facility] PRN Reason: Protocol Stop: 08/30/17 06:01 Last Admin: 03/01/17 05:38 Dose: 100 mg Furosemide (Lasix) 20 mg PO DAILY KIRK Stop: 08/31/17 09:01 Insulin Detemir (Levemir) 32 unit SQ BID KIRK Stop: 08/31/17 21:01 Insulin Human Lispro (Humalog) 12 units SQ TIDWM KIRK Stop: 08/31/17 12:01 Losartan Potassium (Cozaar) 25 mg PO DAILY KIRK Stop: 08/31/17 09:01 Last Admin: 03/01/17 08:00 Dose: 25 mg Metolazone (Zaroxolyn) 2.5 mg PO 2XW KIRK Stop: 08/31/17 09:01 Last Admin: 03/01/17 08:05 Dose: 2.5 mg Metoprolol Tartrate (Lopressor) 25 mg PO BID KIRK Stop: 08/30/17 09:46 Last Admin: 03/01/17 08:00 Dose: 25 mg Montelukast Sodium (Singulair) 10 mg PO HS KIRK Stop: 08/30/17 21:01 Last Admin: 02/28/17 20:27 Dose: 10 mg Pharmacy Profile Note (Patient Taking Own Medication) 0 each SQ DAILY KIRK Stop: 08/30/17 09:01 Last Admin: 03/01/17 08:01 Dose: Not Given Pharmacy Profile Note (Patient Taking Own Medication) 0 each PO TIDWM KIRK Stop: 08/30/17 08:01 Last Admin: 03/01/17 08:01 Dose: Not Given Potassium Chloride (Potassium Chloride) 40 meq PO DAILY KIRK Stop: 08/30/17 09:01 Last Admin: 03/01/17 08:01 Dose: 40 meq Pregabalin (Lyrica) 100 mg PO BID KIRK Stop: 08/30/17 21:01 Last Admin: 03/01/17 08:00 Dose: 100 mg Tiotropium [place] (Spiriva) 18 mcg IH DAILY [facility] PRN Reason: Protocol Stop: 08/30/17 09:01 Last Admin: 02/28/17 09:49 Dose: 18 mcg Vitamin D (Vitamin D) 5,000 unit PO BID KIRK Stop: 08/30/17 09:01 Last Admin: 03/01/17 08:01 Dose: 5,000 unit - EKG Interpretation EKG results cardiology: other (24-hour telemetry reviewed with average heart rate 68, sinus rhythm with PACs) Consult Discharge Plan - Plan Referrals: Iliana Almaguer MD [Primary Care Provider] -
[2017-03-01] MEDS ORDERED: metOLazone 2.5 MG TABLET PO SCH (09:00)
[2017-03-01] MEDS: Tiotropium 18 MCG inhalation IH SCH (10:42)
[2017-03-01] MEDS: Budesonide/Formoterol 160/4.5 MDI IH SCH ×2 (10:42→23:04)
--- NOTE | 2017-03-01 11:27 | Electrocardiograph Report ---
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
--- NOTE | 2017-03-01 11:28 | Electrocardiograph Report ---
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
[2017-03-01] MEDS: Furosemide 20 MG TABLET PO SCH (13:07)
--- NOTE | 2017-03-01 13:25 | Electrocardiograph Report ---
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
--- NOTE | 2017-03-01 14:37 | Discharge Summary ---
Date of Encounter: 03/01/17 Time of Encounter: 14:27 - Discharge Diagnosis (1) Acute exacerbation of CHF (congestive heart failure) Priority: Secondary Status: Acute Qualifiers: Congestive heart failure type: unspecified congestive heart failure type Qualified Code(s): I50.9 - Heart failure, unspecified (2) Atrial fibrillation with rapid ventricular response Priority: Primary Status: Acute (3) CAD (coronary artery disease) Priority: Secondary Status: Chronic Qualifiers: Coronary Disease-Associated Artery/Lesion type: [place] artery [place] vs. transplanted heart: [place] heart Associated angina: angina presence unspecified Qualified Code(s): I25.10 - Atherosclerotic heart disease of [place] coronary artery without angina pectoris (4) COPD (chronic obstructive pulmonary disease) Priority: Secondary Status: Chronic Qualifiers: COPD type: emphysema Emphysema type: unspecified Qualified Code(s): J43.9 - Emphysema, unspecified (5) Insulin dependent diabetes mellitus Priority: Secondary Status: Chronic (6) DVT prophylaxis Priority: Secondary Status: Acute (7) Hypokalemia Priority: Secondary Status: Resolved - Discharge Medications Prescriptions: Apixaban [Eliquis] 5 mg PO BID #60 tablet Furosemide [Lasix] 20 mg PO DAILY #14 tablet Potassium Chloride Elixir [Potassium Chloride] 20 meq PO DAILY #14 [facility] [place] Home Medications: Atorvastatin Calcium [Lipitor] 80 mg PO DAILY 06/30/15 [History] Budesonide/Formoterol 160/4.5 [Symbicort] 2 puff IH BID 06/30/15 [History] Montelukast [Singulair] 10 mg PO HS 06/30/15 [History] Pregabalin [Lyrica] 100 mg PO TID 06/30/15 [History] Tiotropium [Spiriva] 18 mcg IH DAILY 06/30/15 [History] Citalopram [CeleXA] 20 mg PO DAILY 08/09/15 [History] Albuterol Neb [Proventil Neb] 2.5 mg IH Q6H PRN 04/17/16 [History] Albuterol Sulfate [Albuterol Inhaler] 2 puff IH Q4H PRN 04/17/16 [History] Metformin HCl [Metformin HCl ER] 1,000 mg PO BID 04/17/16 [History] Metoprolol [Lopressor] 25 mg PO BID 04/17/16 [History] Oxygen 4 l NS AD 04/17/16 [History] Pantoprazole Sodium [Protonix] 40 mg PO DAILY 04/17/16 [History] Lipase/Protease/Amylase [Zenpep Dr 40,000 Units Capsule] 20,000 units PO TIDWM 08/21/16 [History] Losartan Potassium [Cozaar] 50 mg PO DAILY 08/21/16 [History] Insulin ASPART [Novolog Flexpen] 8 - 20 unit SQ TIDWM 02/13/17 [History] Insulin Degludec [Tresiba Flextouch U-100] 60 units SQ DAILY 02/13/17 [History] Nitroglycerin [Nitrostat] 0.4 mg SL Q5M PRN 02/13/17 [History] Polyethylene Glycol 3350 17 gm PO BID PRN 02/13/17 [History] Aspirin Enteric Coated [Aspirin EC] 81 mg PO DAILY tablet. 02/15/17 [Rx] Acetaminophen [Tylenol Arthritis] 650 mg PO Q8H 02/27/17 [History] Cholecalciferol (D-3) [Vitamin D] 5,000 unit PO BID 02/27/17 [History] Fluticasone Propionate Nasal [Flonase] 100 mcg NS DAILY 02/27/17 [History] Isosorbide MONOnitrate [Isosorbide Mononitrate ER] 120 mg PO DAILY 02/27/17 [ History] Apixaban [Eliquis] 5 mg PO BID #60 tablet 03/01/17 [Rx] Furosemide [Lasix] 20 mg PO DAILY #14 tablet 03/01/17 [Rx] Potassium Chloride Elixir [Potassium Chloride] 20 meq PO DAILY #14 ud[facility] 03/01/17 [Rx] Allergies/Adverse Reactions: Allergies amylase [From Creon] Adverse Reaction (Verified 02/13/17 07:44) Diarrhea estrogens, conjugated [From Premarin] Adverse Reaction (Verified 02/13/17 07:44) Anxiety hydrocodone [From Vicodin] Adverse Reaction (Verified 02/13/17 07:44) Anxiety lipase [From Creon] Adverse Reaction (Verified 02/13/17 07:44) Diarrhea metronidazole [From Flagyl] Adverse Reaction (Verified 02/13/17 07:44) See Comments YEAST INFECTION protease [From Creon] Adverse Reaction (Verified 02/13/17 07:44) Diarrhea Tetracycline Adverse Reaction (Verified 02/13/17 07:44) Anxiety tramadol [From Ultram] Adverse Reaction (Verified 02/13/17 07:44) Muscle Pain Procedures/tests Complete & Pending: Procedures Performed prior 72 hours Category Date Time Status ECG 12 lead ECG [ECG] Routine Y 03/01/17 05:15 Completed Date of admission: 02/27/17 21:41 Primary care physician: Iliana Almaguer MD Consults: 02/28/17 00:06 Consult to Cardiology [CONS] Routine Comment: New onset afib. Consulting Provider: [facility] Reason for Consult: New onset afib Call Completed: Yes Consult to Nurse Navigator [CONS] Routine Comment: 02/28/17 16:37 Consult to [facility] [CONS] Routine Reason for SW Consult: patient requesting home health bipap at home and possible rehab 02/28/17 16:38 Consult to Physical Therapy [CONS] Routine Comment: Evaluate, develop and implement POC 03/01/17 10:08 Consult to Occupational Therapy [CONS] Routine Comment: Evaluate, develop and implement POC Discharging clinician: Jose Arrington Anticipated date of discharge: 03/01/17 - Patient Status Disposition: Transfer SNF Condition: Good Functional capacity at discharge: independent ambulation Overall status at discharge: patient is back to baseline - Discharge Instructions Follow Up With: Iliana Almaguer MD [Primary Care Provider] - - Diet and Activity Activity: as per physical therapy Diet: diabetic diet, low salt diet, other (fluid restirction total 1500 ml.) Interval History: Ms. Alanis is a 51 year old female, PMH: CHF, COPD, DM, admitted for afib and CHF exacerbation. Patient complains of chest heaviness and SOB for the past 2 days. Pain and SOB is worse when she moves, but still present when she is stationary. She was seen at her PCPs office, Dr. Almaguer, and complained of this CP and SOB, so he called a squad for patient to be evaluated in ED. Currently, patient is very somnolent, falls asleep during questions. Admits to non productive cough that is getting worse. Admits to Nausea, no vomitting. States she has had fevers of 102.0 at home. She has been sleeping 9-13 hours a day. Still has SOB, denies chest heaviness or pain. Denies wearing CPAP, ALEXIS. Admits to previous admittance for CHF 2 weeks ago at [facility]. Did not require intubation. Does require 4L of continuous oxygen at home. Continues to smoke. Hospital course: Ms. Alanis is a 51 year old female admitted due to CHF exacerbation, fluid overload and new onset a fib with rapid ventricular response. Patient did receive iv lasix along with metolazone and was evaluated by cardiology. Her heart rate improved with cardizem drip and was transitioned to po meds. Due to A fib and high [id number] score, she was started on full dose of lovenox and later was transitioned to po eliquis. Plan is to discharge her on po eliquis, lopresor 25 mg bid, lasix 20 mg daily, d/c metolazone, continue with potassium 20 daily, asa, statins, ARB and betablockers. Patient did qualify for bipap, prescription for bipap given. Will discharge the patent today. She qualified for transfer to [facility]. Plan of care was explained to the patient she expressed understanding. - Time Spent with Patient Total time spent providing and/or coordinating discharge services: - Constitutional Vitals: Temp Pulse Resp BP Pulse Ox 98.2 F 64 18 116/66 95 03/01/17 11:06 03/01/17 11:06 03/01/17 11:06 03/01/17 11:06 03/01/17 11:06 General appearance: Present: cooperative, A&O X 3, pleasant, answers questions appropriately - Head Head exam: Present: atraumatic, normocephalic - Eye Eye exam: Present: PERRL, conjuntiva pink, sclera anicteric Pupils: Present: PERRL - Neck Neck exam general surgery: Present: supple, trachea midline. Absent: lymphadenopathy - Respiratory Respiratory exam: Present: decreased breath sounds. Absent: accessory muscle use, rales, rhonchi, wheezes - Cardiovascular Cardiovascular exam: Present: RRR, +S1, +S2. Absent: diastolic murmur, gallop, rubs, systolic murmur - GI/Abdominal GI/Abdominal exam: Present: normal bowel sounds, soft, no peritoneal signs. Absent: distended, tenderness - Extremities Exam Extremities exam: Present: warm, radial pulses palpable and symetrical. Absent : calf tenderness, cyanotic, pedal edema - Neurological Exam Neurological exam: Present: CN II-XII intact, oriented X3, no focal deficits. Absent: pronater drift, facial droop, speech deficit - Skin Skin exam: Present: dry, intact
--- NOTE | 2017-03-01 14:53 | Physician Discharge Referral ---
ExtendedCare Referral Info Transfer To: ECF Provider in Charge after Transfer: PCP Institutional Level of Care: Skilled - Diagnosis (1) Acute exacerbation of CHF (congestive heart failure) Status: Acute (2) Atrial fibrillation with rapid ventricular response Status: Acute (3) CAD (coronary artery disease) Status: Chronic (4) COPD (chronic obstructive pulmonary disease) Status: Chronic (5) Insulin dependent diabetes mellitus Status: Chronic (6) DVT prophylaxis Status: Acute (7) Hypokalemia Status: Resolved - Transfer Medications Prescriptions: Apixaban [Eliquis] 5 mg PO BID #60 tablet Furosemide [Lasix] 20 mg PO DAILY #14 tablet Potassium Chloride Elixir [Potassium Chloride] 20 meq PO DAILY #14 ud[facility] Home Medications: Atorvastatin Calcium [Lipitor] 80 mg PO DAILY 06/30/15 [History] Budesonide/Formoterol 160/4.5 [Symbicort] 2 puff IH BID 06/30/15 [History] Montelukast [Singulair] 10 mg PO HS 06/30/15 [History] Pregabalin [Lyrica] 100 mg PO TID 06/30/15 [History] Tiotropium [Spiriva] 18 mcg IH DAILY 06/30/15 [History] Citalopram [CeleXA] 20 mg PO DAILY 08/09/15 [History] Albuterol Neb [Proventil Neb] 2.5 mg IH Q6H PRN 04/17/16 [History] Albuterol Sulfate [Albuterol Inhaler] 2 puff IH Q4H PRN 04/17/16 [History] Metformin HCl [Metformin HCl ER] 1,000 mg PO BID 04/17/16 [History] Metoprolol [Lopressor] 25 mg PO BID 04/17/16 [History] Oxygen 4 l NS AD 04/17/16 [History] Pantoprazole Sodium [Protonix] 40 mg PO DAILY 04/17/16 [History] Lipase/Protease/Amylase [Zenpep Dr 40,000 Units Capsule] 20,000 units PO TIDWM 08/21/16 [History] Losartan Potassium [Cozaar] 50 mg PO DAILY 08/21/16 [History] Insulin ASPART [Novolog Flexpen] 8 - 20 unit SQ TIDWM 02/13/17 [History] Insulin Degludec [Tresiba Flextouch U-100] 60 units SQ DAILY 02/13/17 [History] Nitroglycerin [Nitrostat] 0.4 mg SL Q5M PRN 02/13/17 [History] Polyethylene Glycol 3350 17 gm PO BID PRN 02/13/17 [History] Aspirin Enteric Coated [Aspirin EC] 81 mg PO DAILY tablet. 02/15/17 [Rx] Acetaminophen [Tylenol Arthritis] 650 mg PO Q8H 02/27/17 [History] Cholecalciferol (D-3) [Vitamin D] 5,000 unit PO BID 02/27/17 [History] Fluticasone Propionate Nasal [Flonase] 100 mcg NS DAILY 02/27/17 [History] Isosorbide MONOnitrate [Isosorbide Mononitrate ER] 120 mg PO DAILY 02/27/17 [ History] Apixaban [Eliquis] 5 mg PO BID #60 tablet 03/01/17 [Rx] Furosemide [Lasix] 20 mg PO DAILY #14 tablet 03/01/17 [Rx] Potassium Chloride Elixir [Potassium Chloride] 20 meq PO DAILY #14 udc 03/01/17 [Rx] Allergies/Adverse Reactions: Allergies amylase [From Creon] Adverse Reaction (Verified 02/13/17 07:44) Diarrhea estrogens, conjugated [From Premarin] Adverse Reaction (Verified 02/13/17 07:44) Anxiety hydrocodone [From Vicodin] Adverse Reaction (Verified 02/13/17 07:44) Anxiety lipase [From Creon] Adverse Reaction (Verified 02/13/17 07:44) Diarrhea metronidazole [From Flagyl] Adverse Reaction (Verified 02/13/17 07:44) See Comments YEAST INFECTION protease [From Creon] Adverse Reaction (Verified 02/13/17 07:44) Diarrhea Tetracycline Adverse Reaction (Verified 02/13/17 07:44) Anxiety tramadol [From Ultram] Adverse Reaction (Verified 02/13/17 07:44) Muscle Pain - Respiratory Orders Oxygen / L per min, Other (Bipap 10/17/40) Smoking Cessation: Smoking cessation has been advised. For more information, call the [place] Tobacco Quit Line at 1-677-OROZ-NOW. - Advance Directives Code Status: Full Code - Mobility Orders Other (as per PT) - Rehabiliation Orders Rehab Potential: Fair Rehab Orders: ROM Exercises, Evaluation for Physical Therapy, Evaluation for Occupational Therapy - Diet Orders No Added Salt (HIRO), Cardiac (Fluid restrcition) CERTIFICATION: I certify that the transfer of the above named patient to an Extended Care Facility is necessary for the continuing treatment of the diagnosis listed. The above information is true and accurate reflection of patient's current condition. Confidential - Redisclosure prohibited without a patient's written consent.
[2017-03-01] MEDS: APIXABAN 5 MG TABLET PO SCH (19:57)
[2017-03-02] MEDS: Albuterol 2.5 MG/3 ML NEBULIZER IH SCH ×3 (03:40→16:19)
[2017-03-02 05:37] LABS: Eosinophils % 1.2 %; Immature Granulocytes % 0.3 % (0-4); Segmented Neutrophils % 76.9 %
[2017-03-02 05:39] LABS: Basophils # 0.1 K/mcL (0.0-0.2); Basophils % 0.6 %; Eosinophils # 0.1 K/mcL (0.0-0.6); Hemoglobin 13.5 g/dL (11.5-15.4); Immature Platelets 5.9 % (1.1-6.1); Lymphocytes # 1.2 K/mcL (0.6-4.6); Lymphocytes % 11.7 %; Mean Corpuscular HGB Conc 29.3 g/dL (31.6-35.5); Mean Corpuscular Volume 71.7 fL (83.0-100.0); Mean Platelet Volume 10.2 fL (9.4-12.4); Monocytes % 9.3 %; Neutrophils # 7.9 K/mcL (1.6-8.9); Platelet Count 238 K/mcL (140-400); Red Blood Count 6.42 M/mcL (3.82-4.97); Red Cell Distribution Width 23.1 % (11.5-14.5)
[2017-03-02 05:42] LABS: INR 1.5; Prothrombin Time 16.5 Seconds (9.4-12.1)
[2017-03-02 05:52] LABS: BUN/Creatinine Ratio 37 (6-26); Calcium 9.3 mg/dL (8.6-10.8); Carbon Dioxide 37 mEq/L (19-29); Chloride 96 mEq/L (98-109); Glucose 92 mg/dL (70-99); Osmolality,Calculated 292 (280-300); Potassium 3.7 mEq/L (3.5-4.5); Sodium 139 mEq/L (136-145); eGFR For African Americans > 60 (> 60); eGFR For Non-African Americans > 60 (> 60)
[2017-03-02 05:57] LABS: Blood Urea Nitrogen 26 mg/dL (7-20)
[2017-03-02 06:08] LABS: Anisocytosis 2+ (Not Present); Platelet Estimate Normal (Normal)
[2017-03-02] MEDS ORDERED: Cholecalciferol (D-3) 1,000 UNIT TABLET PO SCH (09:00)
[2017-03-02] MEDS: Pregabalin 50 MG CAPSULE PO SCH (10:06)
[2017-03-02] MEDS: Acetaminophen 325 MG TABLET PO SCH (10:06)
[2017-03-02] MEDS: Furosemide 20 MG TABLET PO SCH (10:06)
[2017-03-02] MEDS: APIXABAN 5 MG TABLET PO SCH (10:07)
[2017-03-02] MEDS: Aspirin Enteric Coated 81 MG Tablet PO SCH (10:07)
[2017-03-02] MEDS: Potassium Chloride Elixir 20 MEQ/15 ML UDC PO SCH (10:07)
[2017-03-02] MEDS: Tiotropium 18 MCG inhalation IH SCH (10:11)
[2017-03-02] MEDS: Insulin DETEMIR 100 UNIT/ML X5UNITS SQ SCH (10:11)
[2017-03-02] MEDS: Budesonide/Formoterol 160/4.5 MDI IH SCH (10:11)
[2017-03-02] MEDS: Insulin LISPRO 300 UNITS/3 ML VIAL SQ SCH ×3 (10:12→16:50)
[2017-03-02 15:23] VITALS: BP 110/69
--- NOTE | 2017-03-02 16:12 | Internal Med Progress Note ---
Date of Encounter: 03/02/17 Time of Encounter: 11:55 - Assessment and plan (1) Acute exacerbation of CHF (congestive heart failure) Current Visit: Yes Status: Acute Assessment and plan: patient was dischsrged yesterday, awaiting placement. Qualifiers: Congestive heart failure type: unspecified congestive heart failure type Qualified Code(s): I50.9 - Heart failure, unspecified (2) Atrial fibrillation with rapid ventricular response Current Visit: Yes Status: Acute (3) CAD (coronary artery disease) Current Visit: Yes Status: Chronic Qualifiers: Coronary Disease-Associated Artery/Lesion type: [place] artery [place] vs. transplanted heart: [place] heart Associated angina: angina presence unspecified Qualified Code(s): I25.10 - Atherosclerotic heart disease of [place] coronary artery without angina pectoris (4) COPD (chronic obstructive pulmonary disease) Current Visit: Yes Status: Chronic Qualifiers: COPD type: emphysema Emphysema type: unspecified Qualified Code(s): J43.9 - Emphysema, unspecified (5) Insulin dependent diabetes mellitus Current Visit: Yes Status: Chronic (6) DVT prophylaxis Current Visit: No Status: Acute (7) Hypokalemia Current Visit: No Status: Resolved - Subjective Interval history: Patient seen and examined, poor historian, feels better than yesterday. - Constitutional Vitals: Temp Pulse Resp BP Pulse Ox 97.6 F 70 16 110/69 94 03/02/17 15:20 03/02/17 15:20 03/02/17 15:20 03/02/17 15:20 03/02/17 15:20 General appearance: Present: cooperative, A&O X 3, pleasant, answers questions appropriately - Head Head exam: Present: atraumatic, normocephalic - Eye Eye exam: Present: PERRL, conjuntiva pink, sclera anicteric Pupils: Present: PERRL - Neck Neck exam general surgery: Present: supple, trachea midline. Absent: lymphadenopathy - Respiratory Respiratory exam: Present: CTAB. Absent: accessory muscle use, rales, rhonchi, wheezes - Cardiovascular Cardiovascular exam: Present: RRR, +S1, +S2. Absent: diastolic murmur, gallop, rubs, systolic murmur - GI/Abdominal GI/Abdominal exam: Present: normal bowel sounds, soft, no peritoneal signs. Absent: distended, tenderness - Extremities Exam Extremities exam: Present: warm, radial pulses palpable and symetrical. Absent : calf tenderness, cyanotic, pedal edema - Neurological Exam Neurological exam: Present: CN II-XII intact, oriented X3, no focal deficits. Absent: pronater drift, facial droop, speech deficit - Skin Skin exam: Present: dry, intact Internal Medicine: Result - Labs CBC & Chem 7: 03/02/17 05:11 03/02/17 05:11 Labs: Short CBC 03/02/17 Range/Units 05:11 WBC 10.3 (4.3-11.1) K/mcL Hgb 13.5 (11.5-15.4) g/dL Hct 46.0 H (35.3-44.9) % Plt Count 238 (140-400) K/mcL Neutrophils # 7.9 (1.6-8.9) K/mcL BMP 03/02/17 05:11 Sodium 139 Potassium 3.7 Chloride 96 L Carbon Dioxide 37 H BUN 26 H D Creatinine 0.70 Glucose 92 Calcium 9.3 - ABG Interpretation ABG results: ABG ABG pH 7.38 pH Units (7.32-7.45) 02/27/17 23:55 ABG pCO2 65 mmHg (35-45) H 02/27/17 23:55 ABG pO2 62 mmHg (85-104) L 02/27/17 23:55 ABG O2 Saturation 91 % (95-98) L 02/27/17 23:55 PT/INR, D-dimer PT 16.5 Seconds (9.4-12.1) H 03/02/17 05:11 D-Dimer 3645 ng/mLFEU (0-500) H 02/27/17 18:16 Consult Discharge Plan - Plan Instructions: Furosemide (By mouth), Potassium Chloride (By mouth), Apixaban ( By mouth), Heart Failure (DC), Atrial Fibrillation (DC), Atrial Fibrillation ( GEN) Referrals: Iliana Almaguer MD [Primary Care Provider] - Sohan Zuñiga MD [Partnered Physician] - 03/05/17 3:40 pm Prescriptions: Apixaban [Eliquis] 5 mg PO BID #60 tablet Furosemide [Lasix] 20 mg PO DAILY #14 tablet Potassium Chloride Elixir [Potassium Chloride] 20 meq PO DAILY #14 [facility] [place]
== END 2017-03-02 19:30 ==
LOC: EMEROO 17:36 → 2NENU 17:36 → SUATTDRO 21:41 → 2NENU 23:14
PROVIDERS: ADMIT Internal Medicine; ATTEND Internal Medicine

== ENCOUNTER 2017-06-15 12:28 | Inpatient (IN) ==
--- NOTE | 2017-06-15 12:32 | Emergency Department Note ---
Disposition Clinical Impression: VANESSA (acute kidney injury), Hypotension Disposition: Admitted As Inpatient Condition: Good General Adult HPI - General Chief complaint: ED Weakness Stated complaint: weakness, diarrhea, headache Time Seen by Provider: 06/15/17 12:30 - Related Data Home Medications Medication Instructions Recorded Confirmed Atorvastatin Calcium [Lipitor] 80 mg PO DAILY 06/30/15 06/15/17 Budesonide/Formoterol 160/4.5 2 puff IH BID 06/30/15 06/15/17 [Symbicort] Montelukast [Singulair] 10 mg PO HS 06/30/15 06/15/17 Pregabalin [Lyrica] 100 mg PO TID 06/30/15 06/15/17 Tiotropium [Spiriva] 1 cap IH DAILY 06/30/15 06/15/17 Citalopram [CeleXA] 20 mg PO DAILY 08/09/15 06/15/17 Albuterol Neb [Proventil Neb] 2.5 mg IH Q6H PRN 04/17/16 06/15/17 Albuterol Sulfate [Albuterol 2 puff IH Q4H PRN 04/17/16 06/15/17 Inhaler] Metformin HCl [Metformin HCl ER] 1,000 mg PO BID 04/17/16 06/15/17 Metoprolol [Lopressor] 25 mg PO BID 04/17/16 06/15/17 Oxygen 4 l NS AD 04/17/16 06/15/17 Pantoprazole Sodium [Protonix] 40 mg PO DAILY 04/17/16 06/15/17 Lipase/Protease/Amylase [Zenpep Dr 20,000 units PO TIDWM 08/21/16 06/15/17 40,000 Units Capsule] Losartan Potassium [Cozaar] 50 mg PO DAILY 08/21/16 06/15/17 Insulin ASPART [Novolog Flexpen] 8 - 20 unit SQ TIDWM 02/13/17 06/15/17 Insulin Degludec [Tresiba 55 units SQ BID 02/13/17 06/15/17 Flextouch U-100] Nitroglycerin [Nitrostat] 0.4 mg SL Q5M PRN 02/13/17 06/15/17 Polyethylene Glycol 3350 17 gm PO BID PRN 02/13/17 06/15/17 Acetaminophen [Tylenol Arthritis] 650 mg PO Q8H 02/27/17 06/15/17 Cholecalciferol (D-3) [Vitamin D] 5,000 unit PO BID 02/27/17 06/15/17 Fluticasone Propionate Nasal 100 mcg NS DAILY 02/27/17 06/15/17 [Flonase] Isosorbide MONOnitrate [Isosorbide 120 mg PO DAILY 02/27/17 06/15/17 Mononitrate ER] Bumetanide [Bumex] 1 mg PO DAILY 06/15/17 06/15/17 Cholestyramine 4 gm PO BIDAC 06/15/17 06/15/17 Lipase/Protease/Amylase [Zenpep 40,000 units PO TID 06/15/17 06/15/17 40,000 Units Capsule] Loperamide [Imodium] 2 mg PO Q4HR PRN 06/15/17 06/15/17 Ranitidine HCl [Zantac] 150 mg PO BID 06/15/17 06/15/17 Spironolactone [Aldactone] 25 mg PO BID 06/15/17 06/15/17 metOLazone [Zaroxolyn] 2.5 mg PO 2XW 06/15/17 06/15/17 Previous Rx's Medication Instructions Recorded Aspirin Enteric Coated [Aspirin EC] 81 mg PO DAILY tablet. 02/15/17 Apixaban [Eliquis] 5 mg PO BID #60 tablet 03/01/17 Potassium Chloride Elixir 20 meq PO DAILY #14 udc 03/01/17 [Potassium Chloride] Allergies Allergy/AdvReac Type Severity Reaction Status Date / Time amylase [From Creon] AdvReac Diarrhea Verified 02/13/17 07:44 estrogens, conjugated AdvReac Anxiety Verified 02/13/17 07:44 [From Premarin] hydrocodone [From Vicodin] AdvReac Anxiety Verified 02/13/17 07:44 lipase [From Creon] AdvReac Diarrhea Verified 02/13/17 07:44 metronidazole [From Flagyl] AdvReac See Verified 02/13/17 07:44 Comments protease [From Creon] AdvReac Diarrhea Verified 02/13/17 07:44 Tetracycline AdvReac Anxiety Verified 02/13/17 07:44 tramadol [From Ultram] AdvReac Muscle Pain Verified 02/13/17 07:44 Past Medical History - Past Medical History Medical history: Reports: arthritis, asthma, CHF, COPD, diabetes, hyperlipidemia , hypertension, kidney stones, other Surgical history: Reports: cholecystectomy, other Psychiatric history: Reports: depression 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, 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 - Social History Smoking Status: Current every day smoker Smokeless Tobacco Status: No Alcohol use: Reports: none Drug use: Reports: none Course Vital Signs Temperature 98.1 F 06/15/17 12:32 Pulse Rate 55 06/15/17 12:32 Respiratory Rate 16 06/15/17 12:32 Blood Pressure 94/58 06/15/17 12:32 O2 Sat by Pulse Oximetry 88 06/15/17 12:32 Temperature 98 F 06/16/17 07:09 Pulse Rate 62 06/16/17 07:09 Respiratory Rate 16 06/16/17 07:09 Blood Pressure 119/70 06/16/17 07:09 O2 Sat by Pulse Oximetry 90 06/16/17 07:09 Oxygen Delivery Oxygen Delivery Nasal Cannula Medical Decision Making - Lab Data Result diagrams: 06/16/17 05:16 06/16/17 05:16 Lab Results 06/15/17 06/15/17 06/15/17 Range/Units 13:06 13:06 13:06 WBC 12.7 H (4.3-11.1) K/mcL RBC 7.47 H (3.82-4.97) M/mcL Hgb 18.6 H (11.5-15.4) g/dL Hct 57.7 H (35.3-44.9) % MCV 77.2 L (83.0-100.0) fL MCH 24.9 L (28.0-33.3) pg MCHC 32.2 (31.6-35.5) g/dL RDW 25.9 H (11.5-14.5) % Plt Count 213 (140-400) K/mcL Immature Gran % 0.9 (0-4) % Seg Neutrophils % 78.9 % Lymphocytes % 13.0 % Monocytes % 5.7 % Eosinophils % 0.9 % Basophils % 0.6 % Neutrophils # 10.0 H (1.6-8.9) K/mcL Lymphocytes # 1.7 (0.6-4.6) K/mcL Monocytes # 0.7 (0.0-1.3) K/mcL Eosinophils # 0.1 (0.0-0.6) K/mcL Basophils # 0.1 (0.0-0.2) K/mcL Platelet Estimate Normal (Normal) Immature Plt Fraction 6.0 (1.1-6.1) % Anisocytosis 1+ A (Not Present) Sodium 126 L (136-145) mEq/L Potassium 4.8 H (3.5-4.5) mEq/L Chloride 89 L (98-109) mEq/L Carbon Dioxide 26 (19-29) mEq/L BUN 65 H (7-20) mg/dL Creatinine 2.25 H (0.57-1.11) mg/dL Est GFR ( Amer) 27 L (> 60) Est GFR (Non-Af Amer) 23 L (> 60) BUN/Creatinine Ratio 29 H (6-26) Glucose 191 H (70-99) mg/dL Calculated Osmolality 286 (280-300) Lactic Acid (0.5-2.2) mmol/L Calcium 9.6 (8.6-10.8) mg/dL Phosphorus 4.9 H (2.3-4.7) mg/dL Magnesium 2.0 (1.6-2.6) mg/dL Total Bilirubin 0.5 (0.2-1.2) mg/dL Direct Bilirubin 0.2 (0.0-0.5) mg/dL Indirect Bilirubin 0.3 (0.0-1.2) mg/dL AST 21 (5-34) Units/L ALT 30 (0-55) Units/L Alkaline Phosphatase 126 (38-126) Units/L Troponin I 0.01 (0-0.03) ng/mL Serum Total Protein 7.8 (6.0-8.3) g/dL Albumin 3.5 (3.5-5.0) g/dL Globulin 4.3 H (2.4-3.5) g/dL Albumin/Globulin Ratio 0.8 L (1.1-2.2) Lipase 36 (8-78) Units/L Urine Color (Yellow) Urine Clarity (Clear) Urine pH (5.0-8.0) pH Units Ur Specific [place] (1.010-1.025) Urine Protein (Neg-Trace) mg/dL Urine Glucose (UA) (Normal) mg/dL Urine Ketones (Negative) mg/dL Urine Blood (Negative) Urine Nitrite (Negative) Urine Bilirubin (Negative) Urine Urobilinogen (Normal) mg/dL Ur Leukocyte Esterase (Negative) Ur Culture Indicated? (NO) Specimen Rejected 06/15/17 06/15/17 06/15/17 Range/Units 13:06 13:42 14:59 WBC (4.3-11.1) K/mcL RBC (3.82-4.97) M/mcL Hgb (11.5-15.4) g/dL Hct (35.3-44.9) % MCV (83.0-100.0) fL MCH (28.0-33.3) pg MCHC (31.6-35.5) g/dL RDW (11.5-14.5) % Plt Count (140-400) K/mcL Immature Gran % (0-4) % Seg Neutrophils % % Lymphocytes % % Monocytes % % Eosinophils % % Basophils % % Neutrophils # (1.6-8.9) K/mcL Lymphocytes # (0.6-4.6) K/mcL Monocytes # (0.0-1.3) K/mcL Eosinophils # (0.0-0.6) K/mcL Basophils # (0.0-0.2) K/mcL Platelet Estimate (Normal) Immature Plt Fraction (1.1-6.1) % Anisocytosis (Not Present) Sodium (136-145) mEq/L Potassium (3.5-4.5) mEq/L Chloride (98-109) mEq/L Carbon Dioxide (19-29) mEq/L BUN (7-20) mg/dL Creatinine (0.57-1.11) mg/dL Est GFR ( Amer) (> 60) Est GFR (Non-Af Amer) (> 60) BUN/Creatinine Ratio (6-26) Glucose (70-99) mg/dL Calculated Osmolality (280-300) Lactic Acid 1.9 (0.5-2.2) mmol/L Calcium (8.6-10.8) mg/dL Phosphorus (2.3-4.7) mg/dL Magnesium (1.6-2.6) mg/dL Total Bilirubin (0.2-1.2) mg/dL Direct Bilirubin (0.0-0.5) mg/dL Indirect Bilirubin (0.0-1.2) mg/dL AST (5-34) Units/L ALT (0-55) Units/L Alkaline Phosphatase (38-126) Units/L Troponin I (0-0.03) ng/mL Serum Total Protein (6.0-8.3) g/dL Albumin (3.5-5.0) g/dL Globulin (2.4-3.5) g/dL Albumin/Globulin Ratio (1.1-2.2) Lipase (8-78) Units/L Urine Color Yellow (Yellow) Urine Clarity Clear (Clear) Urine pH 5.0 (5.0-8.0) pH Units Ur Specific [place] 1.013 (1.010-1.025) Urine Protein Negative (Neg-Trace) mg/dL Urine Glucose (UA) 100 H (Normal) mg/dL Urine Ketones Negative (Negative) mg/dL Urine Blood Negative (Negative) Urine Nitrite Negative (Negative) Urine Bilirubin Negative (Negative) Urine Urobilinogen Normal (Normal) mg/dL Ur Leukocyte Esterase Negative (Negative) Ur Culture Indicated? NO (NO) Specimen Rejected Hemolyzed Attestation Statement - Attestation Attestation: I examined this patient and my medical decision-making was reviewed with the Resident Physician. I agree with the documented findings, disposition and treatment plan as described except to the extent set forth below. [id number] time provided Patient arrives by EMS from her primary care provider's office. She reports generalized weakness and fever. Concern for hypotension and confusion. She appears in no acute distress on exam
--- NOTE | 2017-06-15 12:42 | Emergency Department Note ---
Disposition Clinical Impression: VANESSA (acute kidney injury) Hypotension Qualifiers: Hypotension type: unspecified hypotension type Qualified Code(s): I95.9 - Hypotension, unspecified Disposition: Admitted As Inpatient Condition: Good Referrals: Iliana Almaguer MD [Primary Care Provider] - Forms: ED Satisfaction Letter Time of Disposition: 15:42 General Adult HPI - General Chief complaint: ED Headache Stated complaint: weakness, diarrhea, headache Time Seen by Provider: 06/15/17 12:30 Nursing Notes Reviewed: Yes Vital Signs Reviewed: Yes - History of Present Illness HPI Narrative: Patient complaining of a generalized weakness. Was sent by her primary care physician for hypotension. She reports one episode of diarrhea yesterday. She states that she also has an epigastric pain. She denies any nausea vomiting or diarrhea. He reports a generalized weakness has been present since April after she had a episode where she was jerking all over. - Related Data Home Medications Medication Instructions Recorded Confirmed Atorvastatin Calcium [Lipitor] 80 mg PO DAILY 06/30/15 02/27/17 Budesonide/Formoterol 160/4.5 2 puff IH BID 06/30/15 02/27/17 [Symbicort] Montelukast [Singulair] 10 mg PO HS 06/30/15 02/27/17 Pregabalin [Lyrica] 100 mg PO TID 06/30/15 02/27/17 Tiotropium [Spiriva] 18 mcg IH DAILY 06/30/15 02/27/17 Citalopram [CeleXA] 20 mg PO DAILY 08/09/15 02/27/17 Albuterol Neb [Proventil Neb] 2.5 mg IH Q6H PRN 04/17/16 02/27/17 Albuterol Sulfate [Albuterol 2 puff IH Q4H PRN 04/17/16 02/27/17 Inhaler] Metformin HCl [Metformin HCl ER] 1,000 mg PO BID 04/17/16 02/27/17 Metoprolol [Lopressor] 25 mg PO BID 04/17/16 02/27/17 Oxygen 4 l NS AD 04/17/16 02/27/17 Pantoprazole Sodium [Protonix] 40 mg PO DAILY 04/17/16 02/27/17 Lipase/Protease/Amylase [Zenpep Dr 20,000 units PO TIDWM 08/21/16 02/27/17 40,000 Units Capsule] Losartan Potassium [Cozaar] 50 mg PO DAILY 08/21/16 02/27/17 Insulin ASPART [Novolog Flexpen] 8 - 20 unit SQ TIDWM 02/13/17 02/27/17 Insulin Degludec [Tresiba 60 units SQ DAILY 02/13/17 02/27/17 Flextouch U-100] Nitroglycerin [Nitrostat] 0.4 mg SL Q5M PRN 02/13/17 02/27/17 Polyethylene Glycol 3350 17 gm PO BID PRN 02/13/17 02/27/17 Acetaminophen [Tylenol Arthritis] 650 mg PO Q8H 02/27/17 02/27/17 Cholecalciferol (D-3) [Vitamin D] 5,000 unit PO BID 02/27/17 02/27/17 Fluticasone Propionate Nasal 100 mcg NS DAILY 02/27/17 02/27/17 [Flonase] Isosorbide MONOnitrate [Isosorbide 120 mg PO DAILY 02/27/17 02/27/17 Mononitrate ER] Previous Rx's Medication Instructions Recorded Aspirin Enteric Coated [Aspirin EC] 81 mg PO DAILY tablet. 02/15/17 Apixaban [Eliquis] 5 mg PO BID #60 tablet 03/01/17 Furosemide [Lasix] 20 mg PO DAILY #14 tablet 03/01/17 Potassium Chloride Elixir 20 meq PO DAILY #14 udc 03/01/17 [Potassium Chloride] Acetaminophen w/Cod 300-30 mg 1 each PO Q8HR #10 tablet 05/04/17 [Tylenol w/Codeine #3] Nitrofurantoin Macrocrystal 100 mg PO BID #10 capsule 05/04/17 [Nitrofurantoin] Allergies Allergy/AdvReac Type Severity Reaction Status Date / Time amylase [From Creon] AdvReac Diarrhea Verified 02/13/17 07:44 estrogens, conjugated AdvReac Anxiety Verified 02/13/17 07:44 [From Premarin] hydrocodone [From Vicodin] AdvReac Anxiety Verified 02/13/17 07:44 lipase [From Creon] AdvReac Diarrhea Verified 02/13/17 07:44 metronidazole [From Flagyl] AdvReac See Verified 02/13/17 07:44 Comments protease [From Creon] AdvReac Diarrhea Verified 02/13/17 07:44 Tetracycline AdvReac Anxiety Verified 02/13/17 07:44 tramadol [From Ultram] AdvReac Muscle Pain Verified 02/13/17 07:44 All systems ED: reviewed and negative except as stated. Constitutional: Reports: fever (One episode of greater than 101.). Denies: chills Cardiovascular: Denies: chest pain, palpitations, syncope Respiratory: Denies: cough, dyspnea, wheezes Gastrointestinal: Reports: abdominal pain (Epigastric), diarrhea (One episode yesterday). Denies: nausea, vomiting, hematemesis, melena, hematochezia Genitourinary: Denies: urgency, dysuria, frequency, hematuria Musculoskeletal: Denies: back pain, neck pain, joint swelling Integumentary: Denies: rash, abrasion Neurological: Reports: weakness (For over a month.). 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 Absent: scleral icterus - ENT ENT exam: normal exam, normal oropharynx, mucous membranes moist - Neck Neck exam: Present: normal inspection, full ROM, trachea midline. Absent: tenderness, meningismus, lymphadenopathy - Chest Chest inspection: Present: normal inspection, symmetric chest wall rise. Absent : tenderness, rash - Respiratory Respiratory exam: Present: normal lung sounds bilaterally. Absent: respiratory distress, wheezes - Cardiovascular Cardiovascular exam: Present: regular rate, normal rhythm, normal heart sounds - Abdominal Exam Abdominal exam: Present: soft, Non-Tender, normal bowel sounds. Absent: tenderness, distention, guarding, rebound, rigidity, organomegaly - Extremities Exam Extremities exam: Present: normal inspection, full ROM, normal capillary refill. Absent: tenderness, pedal edema - Back Exam Back exam: Present: normal inspection, full ROM. Absent: tenderness, CVA tenderness (R), CVA tenderness (L) - Neurological Exam Neurological exam: Present: alert, oriented X3 - Psychiatric Psychiatric exam: Present: normal affect, normal mood - Skin Skin exam: Present: warm, dry, intact. Absent: normal color, rash, cyanosis, diaphoresis, erythema Course Course Narrative: Patient visiting to the emergency department with a complaint of Generalized weakness. States that she had a fever at home yesterday greater than 101. States she went to her doctor's office today is found to be hypotensive so she was transferred to the hospital. Patient is mentating appropriately at this time. She has no neurologic deficits. She does report a possible seizure-like activity greater than 2 months ago. She has neurology follow-up for this. She states she had generalized jerking all over her body but was alert throughout the whole course. She is reporting diarrhea yesterday. Also upper epigastric abdominal pain. She denies any nausea or vomiting. She denies any hematochezia or melena. She denies any hematemesis. She also denies any urinary symptoms. She denies any shortness of breath or chest pain. On exam she is mentating appropriately. Her lung sounds are clear heart tones are normal. She does have some mild upper left quadrant pain on palpation. There are no peritoneal signs. There are no masses. She has no signs of edema to her extremities. I do not appreciate any signs of a skin infection. - Reevaluation(s) Reevaluation #1: Patient has a new VANESSA. She also appears very tired in bed. We will give patient a second fluid bolus to a hypotensive event and admit to the hospital. Time: 15:34 - Consultations Consultation #1: Dr Silva accepted patient in stable condition. He is requesting a GI panel stool I have ordered this for him. Time: 15:41 Vital Signs Temperature 98.1 F 06/15/17 12:32 Pulse Rate 55 06/15/17 12:32 Respiratory Rate 16 06/15/17 12:32 Blood Pressure 94/58 06/15/17 12:32 O2 Sat by Pulse Oximetry 88 06/15/17 12:32 Temperature 98.1 F 06/15/17 12:32 Pulse Rate 48 06/15/17 15:31 Respiratory Rate 16 06/15/17 15:31 Blood Pressure 83/45 06/15/17 15:31 O2 Sat by Pulse Oximetry 93 06/15/17 15:31 Oxygen Delivery Oxygen Delivery Nasal Cannula Medical Decision Making - Medical Records Medical records reviewed: Yes I reviewed the patient's medical records. - Lab Data Lab results reviewed: Yes I reviewed the patient's lab results. Result diagrams: 06/15/17 13:06 06/15/17 13:06 Lab Results 06/15/17 06/15/17 06/15/17 Range/Units 13:06 13:06 13:06 WBC 12.7 H (4.3-11.1) K/mcL RBC 7.47 H (3.82-4.97) M/mcL Hgb 18.6 H (11.5-15.4) g/dL Hct 57.7 H (35.3-44.9) % MCV 77.2 L (83.0-100.0) fL MCH 24.9 L (28.0-33.3) pg MCHC 32.2 (31.6-35.5) g/dL RDW 25.9 H (11.5-14.5) % Plt Count 213 (140-400) K/mcL Immature Gran % 0.9 (0-4) % Seg Neutrophils % 78.9 % Lymphocytes % 13.0 % Monocytes % 5.7 % Eosinophils % 0.9 % Basophils % 0.6 % Neutrophils # 10.0 H (1.6-8.9) K/mcL Lymphocytes # 1.7 (0.6-4.6) K/mcL Monocytes # 0.7 (0.0-1.3) K/mcL Eosinophils # 0.1 (0.0-0.6) K/mcL Basophils # 0.1 (0.0-0.2) K/mcL Platelet Estimate Normal (Normal) Immature Plt Fraction 6.0 (1.1-6.1) % Anisocytosis 1+ A (Not Present) Sodium 126 L (136-145) mEq/L Potassium 4.8 H (3.5-4.5) mEq/L Chloride 89 L (98-109) mEq/L Carbon Dioxide 26 (19-29) mEq/L BUN 65 H (7-20) mg/dL Creatinine 2.25 H (0.57-1.11) mg/dL Est GFR ( Amer) 27 L (> 60) Est GFR (Non-Af Amer) 23 L (> 60) BUN/Creatinine Ratio 29 H (6-26) Glucose 191 H (70-99) mg/dL Calculated Osmolality 286 (280-300) Lactic Acid (0.5-2.2) mmol/L Calcium 9.6 (8.6-10.8) mg/dL Phosphorus 4.9 H (2.3-4.7) mg/dL Magnesium 2.0 (1.6-2.6) mg/dL Total Bilirubin 0.5 (0.2-1.2) mg/dL Direct Bilirubin 0.2 (0.0-0.5) mg/dL Indirect Bilirubin 0.3 (0.0-1.2) mg/dL AST 21 (5-34) Units/L ALT 30 (0-55) Units/L Alkaline Phosphatase 126 (38-126) Units/L Troponin I 0.01 (0-0.03) ng/mL Serum Total Protein 7.8 (6.0-8.3) g/dL Albumin 3.5 (3.5-5.0) g/dL Globulin 4.3 H (2.4-3.5) g/dL Albumin/Globulin Ratio 0.8 L (1.1-2.2) Lipase 36 (8-78) Units/L Urine Color (Yellow) Urine Clarity (Clear) Urine pH (5.0-8.0) pH Units Ur Specific [place] (1.010-1.025) Urine Protein (Neg-Trace) mg/dL Urine Glucose (UA) (Normal) mg/dL Urine Ketones (Negative) mg/dL Urine Blood (Negative) Urine Nitrite (Negative) Urine Bilirubin (Negative) Urine Urobilinogen (Normal) mg/dL Ur Leukocyte Esterase (Negative) Ur Culture Indicated? (NO) Specimen Rejected 06/15/17 06/15/17 06/15/17 Range/Units 13:06 13:42 14:59 WBC (4.3-11.1) K/mcL RBC (3.82-4.97) M/mcL Hgb (11.5-15.4) g/dL Hct (35.3-44.9) % MCV (83.0-100.0) fL MCH (28.0-33.3) pg MCHC (31.6-35.5) g/dL RDW (11.5-14.5) % Plt Count (140-400) K/mcL Immature Gran % (0-4) % Seg Neutrophils % % Lymphocytes % % Monocytes % % Eosinophils % % Basophils % % Neutrophils # (1.6-8.9) K/mcL Lymphocytes # (0.6-4.6) K/mcL Monocytes # (0.0-1.3) K/mcL Eosinophils # (0.0-0.6) K/mcL Basophils # (0.0-0.2) K/mcL Platelet Estimate (Normal) Immature Plt Fraction (1.1-6.1) % Anisocytosis (Not Present) Sodium (136-145) mEq/L Potassium (3.5-4.5) mEq/L Chloride (98-109) mEq/L Carbon Dioxide (19-29) mEq/L BUN (7-20) mg/dL Creatinine (0.57-1.11) mg/dL Est GFR ( Amer) (> 60) Est GFR (Non-Af Amer) (> 60) BUN/Creatinine Ratio (6-26) Glucose (70-99) mg/dL Calculated Osmolality (280-300) Lactic Acid 1.9 (0.5-2.2) mmol/L Calcium (8.6-10.8) mg/dL Phosphorus (2.3-4.7) mg/dL Magnesium (1.6-2.6) mg/dL Total Bilirubin (0.2-1.2) mg/dL Direct Bilirubin (0.0-0.5) mg/dL Indirect Bilirubin (0.0-1.2) mg/dL AST (5-34) Units/L ALT (0-55) Units/L Alkaline Phosphatase (38-126) Units/L Troponin I (0-0.03) ng/mL Serum Total Protein (6.0-8.3) g/dL Albumin (3.5-5.0) g/dL Globulin (2.4-3.5) g/dL Albumin/Globulin Ratio (1.1-2.2) Lipase (8-78) Units/L Urine Color Yellow (Yellow) Urine Clarity Clear (Clear) Urine pH 5.0 (5.0-8.0) pH Units Ur Specific [place] 1.013 (1.010-1.025) Urine Protein Negative (Neg-Trace) mg/dL Urine Glucose (UA) 100 H (Normal) mg/dL Urine Ketones Negative (Negative) mg/dL Urine Blood Negative (Negative) Urine Nitrite Negative (Negative) Urine Bilirubin Negative (Negative) Urine Urobilinogen Normal (Normal) mg/dL Ur Leukocyte Esterase Negative (Negative) Ur Culture Indicated? NO (NO) Specimen Rejected Hemolyzed - Radiology Data Radiology results reviewed: Yes I reviewed the patient's radiology results. 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 D/ / 06/15/2017 12:53:13 Dorian Valdovinos MD / mague Interpreting Provider: Dorian Valdovinos MD - EKG Data EKG #1 EKG attestation: Yes I reviewed and interpreted this EKG. EKG results narrative: Sinus bradycardia rate of 53. MN interval is 181. [place] is 75. QTC is 467. QTC is 450. No signs of acute ischemia. She does have T-wave inversions in lead 3 however these were present on previous EKG dated 02/28/2017.
[2017-06-15] MEDS ORDERED: Acetaminophen 325 MG TABLET PO ONE (12:58)
[2017-06-15 13:15] LABS: Hemoglobin 18.6 g/dL (11.5-15.4); Mean Corpuscular Hemoglobin 24.9 pg (28.0-33.3); Platelet Count 213 K/mcL (140-400); Red Cell Distribution Width 25.9 % (11.5-14.5)
[2017-06-15 13:17] LABS: Basophils # 0.1 K/mcL (0.0-0.2); Basophils % 0.6 %; Eosinophils # 0.1 K/mcL (0.0-0.6); Eosinophils % 0.9 %; Immature Granulocytes % 0.9 % (0-4); Lymphocytes # 1.7 K/mcL (0.6-4.6); Mean Corpuscular HGB Conc 32.2 g/dL (31.6-35.5); Mean Corpuscular Volume 77.2 fL (83.0-100.0); Monocytes # 0.7 K/mcL (0.0-1.3); Monocytes % 5.7 %; Red Blood Count 7.47 M/mcL (3.82-4.97); Segmented Neutrophils % 78.9 %
[2017-06-15 13:19] LABS: Hematocrit 57.7 % (35.3-44.9)
[2017-06-15 13:31] LABS: Albumin 3.5 g/dL (3.5-5.0); Albumin/Globulin Ratio 0.8 (1.1-2.2); Bilirubin,Direct 0.2 mg/dL (0.0-0.5); Bilirubin,Indirect 0.3 mg/dL (0.0-1.2); Bilirubin,Total 0.5 mg/dL (0.2-1.2); Calcium 9.6 mg/dL (8.6-10.8); Globulin 4.3 g/dL (2.4-3.5); Phosphorous 4.9 mg/dL (2.3-4.7); Potassium 4.8 mEq/L (3.5-4.5); Total Protein 7.8 g/dL (6.0-8.3)
[2017-06-15 13:46] LABS: Platelet Estimate Normal (Normal)
[2017-06-15 13:47] LABS: Anisocytosis 1+ (Not Present)
[2017-06-15 15:07] LABS: Bilirubin,Urine Negative (Negative); Blood,Urine Negative (Negative); Clarity,Urine Clear (Clear); Color,Urine Yellow (Yellow); Glucose,Urine (UA) 100 mg/dL (Normal); Ketones,Urine Negative (Negative); Leukocyte Esterase,Urine Negative (Negative); Nitrite,Urine Negative (Negative); Protein,Urine Negative (Neg-Trace); Specific Gravity,Urine 1.013 (1.010-1.025); Urobilinogen,Urine Normal (Normal)
[2017-06-15] MEDS ORDERED: 0.9 % Sodium Chloride 1,000 ML IVC ONE ×2 (15:31→16:34)
--- NOTE | 2017-06-15 16:17 | Electrocardiograph Report ---
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
[2017-06-15] MEDS ORDERED: Nitroglycerin 0.4 MG TAB.SUBL SL PRN (16:22)
[2017-06-15] MEDS ORDERED: Naloxone 0.4 MG/ML INJ IVP PRN (16:26)
[2017-06-15] MEDS ORDERED: *HR* Dextrose 50 % in Water (Syg) 50 ML SYRINGE IVP PRN (16:26)
[2017-06-15] MEDS ORDERED: *HR* Morphine 2 MG/ML SYRINGE IVP PRN (16:26)
[2017-06-15] MEDS ORDERED: Ondansetron 4 MG/2 ML VIAL IVP PRN (16:26)
[2017-06-15] MEDS ORDERED: D5% in Water 1,000 ML IVC PRN (16:26)
[2017-06-15] MEDS ORDERED: Dextrose Gel 15 GM PO PRN ×2 (16:26)
--- NOTE | 2017-06-15 16:34 | Internal Med History&Physical ---
Date of Encounter: 06/15/17 Time of Encounter: 16:31 Assessment and Plan (1) VANESSA (acute kidney injury) Current visit: Yes Status: Acute Acute renal failure secondary to hypotension and dehydration exacerbated by diuretics and acute gastroenteritis likely viral, has also hemoconcentration due to dehydration in the setting of polycythemia Hold Bumex, metolazone, losartan and metformin Start hydration with IV fluids Send a GI panel Omeprazole for GI prophylaxis and eliquis for DVT prophylaxis. The patient will be admitted as inpatient, expected stay [place] midnights. Full code. Time spent on this admission 40 minutes. High risk due to hypotension (2) Hypotension Current visit: Yes Status: Acute Qualifiers: Hypotension type: other hypotension type Qualified Code(s): I95.89 - Other hypotension (3) Atrial fibrillation Current visit: Yes Status: Acute continue metoprolol, he resume Eliquisin the morning if creatinine is better Qualifiers: Atrial fibrillation type: paroxysmal Qualified Code(s): I48.0 - Paroxysmal atrial fibrillation (4) Diabetes mellitus Current visit: No Status: Chronic Decrease dose of long-acting insulin and continue insulin sliding scale due to acute renal failure Qualifiers: Diabetes mellitus type: other specified (including KOJO) Diabetes mellitus complication status: with unspecified complications 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 mellitus 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 renewal inspector insulin use: with termite renewal inspector use Qualified Code(s): E13.8 - Other specified diabetes mellitus with unspecified complications; Z79.4 - intermediate project manager ( current) use of insulin (5) Dehydration Current visit: No Status: Acute (6) Congestive heart failure Current visit: No Status: Acute Hold metolazone and Bumex Qualifiers: Congestive heart failure type: diastolic Congestive heart failure chronicity: acute on chronic Qualified Code(s): I50.33 - Acute on chronic diastolic (congestive) heart failure (7) COPD (chronic obstructive pulmonary disease) Current visit: No Status: Chronic Continue oxygen therapy Qualifiers: COPD type: emphysema Emphysema type: unspecified Qualified Code(s): J43.9 - Emphysema, unspecified (8) Tobacco abuse Current visit: No Status: Chronic Smoking cessation counseling, nicotine patch (9) Hyponatremia Current visit: No Status: Acute Poor oral intake exacerbated by diuretics Check urine sodium is molality Internal Medicine - H&P: HPI Chief complaint: Low blood pressure Admitted From: Emergency Dept History of present illness: Ms. Alanis is a 52 year old female with a past medical history history of diastolic CHF who was taking Bumex, Zaroxolyn, has also history of diabetes type 2 insulin-dependent, history of fibrillation on eliquis, came to the emergency room transfer from her memory care physician's office as they noticed that her blood pressure was in the 80s. The patient mentions that for the past 24 hours she has been having very watery diarrhea and has had 3 bowel movements , not able to eat much although denies any vomiting. She had a fever of 101, there is no fevers registered here. Her hemoglobin has increased from 15.2 20 value of 18.6, appears very dehydrated, her creatinine increased to 2.25 from her prior value of 1.06. Sodium today is 126 white blood cell count 12.7, her blood pressure was 83/45. Chest x-ray shows chronic vascular fibrosis in both lungs in the right pleural thickening. Glucose is 191. Patient is very somnolent but able to give a history. Denies any other complaints other than severe weakness Past Med Surg Social Fam HX - Past Medical History Medical history: arthritis, asthma, atrial fibrillation (On eliquis, paroxysmal) , CHF (Diastolic), COPD (Oxygen dependent), diabetes (Insulin-dependent), hyperlipidemia, hypertension, kidney stones, other (CAD, cellulitis, nephrolithiasis, tobacco use) Psychiatric history: depression - Past Surgical History Surgical History: cholecystectomy, other (Tubal ligation) - Social History Smoking Status: Current every day smoker Packs per day: Quadra of a pack per day Smokeless Tobacco Status: No Alcohol use: none Drug use: none - Family History Father Adopted: No Family Member Ethnicity: Non- Living Status: Still Living Hx Family Cardiac Disorders: Yes (CABG x3, HTN) Hx Family Respiratory Disorders: Yes (COPD) Hx Family Cancer: No Hx Family GI Disorders: No Hx Family Endocrine Disorder: Yes Hx Family Neuromuscular Disorders: No Hx Family Neurologic Disorders: No Hx Family HEENT Disorders: No Hx Family Autoimmune Disorders: No Mother Family Member Ethnicity: Non- Living Status: Still Living Hx Family Cardiac Disorders: Yes Hx Family Respiratory Disorders: No Hx Family Cancer: Yes Hx Family GI Disorders: No Hx Family Endocrine Disorder: Yes Hx Family Neuromuscular Disorders: No Hx Family Neurologic Disorders: No Hx Family HEENT Disorders: No Hx Family Autoimmune Disorders: No - Additional Family History Additional family history: Mother and father with diabetes, father with CABG Internal Medicine - H&P: Meds Atorvastatin Calcium [Lipitor] 80 mg PO DAILY 06/30/15 [History] Budesonide/Formoterol 160/4.5 [Symbicort] 2 puff IH BID 06/30/15 [History] Montelukast [Singulair] 10 mg PO HS 06/30/15 [History] Pregabalin [Lyrica] 100 mg PO TID 06/30/15 [History] Tiotropium [Spiriva] 1 cap IH DAILY 06/30/15 [History] Citalopram [CeleXA] 20 mg PO DAILY 08/09/15 [History] Albuterol Neb [Proventil Neb] 2.5 mg IH Q6H PRN 04/17/16 [History] Albuterol Sulfate [Albuterol Inhaler] 2 puff IH Q4H PRN 04/17/16 [History] Metformin HCl [Metformin HCl ER] 1,000 mg PO BID 04/17/16 [History] Metoprolol [Lopressor] 25 mg PO BID 04/17/16 [History] Oxygen 4 l NS AD 04/17/16 [History] Pantoprazole Sodium [Protonix] 40 mg PO DAILY 04/17/16 [History] Lipase/Protease/Amylase [Zenpep 40,000 Units Capsule] 20,000 units PO TIDWM 08/21/16 [History] Losartan Potassium [Cozaar] 50 mg PO DAILY 08/21/16 [History] Insulin ASPART [Novolog Flexpen] 8 - 20 unit SQ TIDWM 02/13/17 [History] Insulin Degludec [Tresiba Flextouch U-100] 55 units SQ BID 02/13/17 [History] Nitroglycerin [Nitrostat] 0.4 mg SL Q5M PRN 02/13/17 [History] Polyethylene Glycol 3350 17 gm PO BID PRN 02/13/17 [History] Aspirin Enteric Coated [Aspirin EC] 81 mg PO DAILY tablet. 02/15/17 [Rx] Acetaminophen [Tylenol Arthritis] 650 mg PO Q8H 02/27/17 [History] Cholecalciferol (D-3) [Vitamin D] 5,000 unit PO BID 02/27/17 [History] Fluticasone Propionate Nasal [Flonase] 100 mcg NS DAILY 02/27/17 [History] Isosorbide MONOnitrate [Isosorbide Mononitrate ER] 120 mg PO DAILY 02/27/17 [ History] Apixaban [Eliquis] 5 mg PO BID #60 tablet 03/01/17 [Rx] Potassium Chloride Elixir [Potassium Chloride] 20 meq PO DAILY #14 udc 03/01/17 [Rx] Bumetanide [Bumex] 1 mg PO DAILY 06/15/17 [History] Cholestyramine 4 gm PO BIDAC 06/15/17 [History] Lipase/Protease/Amylase [Zenpep Dr 40,000 Units Capsule] 40,000 units PO TID 02/26 [History] Loperamide [Imodium] 2 mg PO Q4HR PRN 06/15/17 [History] Ranitidine HCl [Zantac] 150 mg PO BID 06/15/17 [History] Spironolactone [Aldactone] 25 mg PO BID 06/15/17 [History] metOLazone [Zaroxolyn] 2.5 mg PO 2XW 06/15/17 [History] Allergies amylase [From Creon] Adverse Reaction (Verified 02/13/17 07:44) Diarrhea estrogens, conjugated [From Premarin] Adverse Reaction (Verified 02/13/17 07:44) Anxiety hydrocodone [From Vicodin] Adverse Reaction (Verified 02/13/17 07:44) Anxiety lipase [From Creon] Adverse Reaction (Verified 02/13/17 07:44) Diarrhea metronidazole [From Flagyl] Adverse Reaction (Verified 02/13/17 07:44) See Comments YEAST INFECTION protease [From Creon] Adverse Reaction (Verified 02/13/17 07:44) Diarrhea Tetracycline Adverse Reaction (Verified 02/13/17 07:44) Anxiety tramadol [From Ultram] Adverse Reaction (Verified 02/13/17 07:44) Muscle Pain All Systems PM: A 10-system review of systems was performed and is negative for pertinent findings except as documented above in the HPI. Review of systems: Denies any chest pain, shortness of breath, other systems out of the 10 reviewed were negative - Constitutional Vitals: Temp Pulse Resp BP Pulse Ox 98.1 F 49 18 90/59 93 06/15/17 12:32 06/15/17 16:20 06/15/17 16:20 06/15/17 16:20 06/15/17 16:20 General appearance: Present: A&O X 3 - Head Head exam: Present: atraumatic, normocephalic - Eye Eye exam: Present: PERRL, conjuntiva pink, sclera anicteric Pupils: Present: PERRL - Neck Neck exam general surgery: Present: supple, trachea midline. Absent: lymphadenopathy Additional comments: Very dry mucosa - Respiratory Respiratory exam: Present: decreased breath sounds, CTAB. Absent: accessory muscle use, rales, rhonchi, wheezes - Cardiovascular Cardiovascular exam: Present: RRR, +S1, +S2. Absent: diastolic murmur, gallop, rubs, systolic murmur - GI/Abdominal GI/Abdominal exam: Present: distended, normal bowel sounds, soft, no peritoneal signs. Absent: tenderness - Extremities Exam Extremities exam: Present: pedal edema (+1 pitting edema, wrinkling evidence decrease all prior edema), warm, radial pulses palpable and symetrical. Absent : calf tenderness, cyanotic - Neurological Exam Neurological exam: Present: CN II-XII intact, oriented X3, no focal deficits. Absent: pronater drift, facial droop, speech deficit - Skin Skin exam: Present: dry, intact Internal Med - H&P Results - Labs CBC & Chem 7: 06/15/17 13:06 06/15/17 13:06
[2017-06-15] MEDS ORDERED: Ipratropium/Albuterol Neb 3 ML IH PRN (16:41)
[2017-06-15] MEDS ORDERED: ZENPEP 20000 UNIT PO PRN (17:30)
[2017-06-15] MEDS: 0.9 % Sodium Chloride 1,000 ML IVC SCH (17:57)
[2017-06-15] MEDS: ZENPEP 40000 UNIT PO SCH (18:12)
[2017-06-15] MEDS: Nicotine 21 MG PATCH.TD24 TD SCH (18:14)
[2017-06-15] MEDS: Insulin LISPRO 300 UNITS/3 ML VIAL SQ SCH ×2 (18:16→18:17)
[2017-06-15] MEDS: Acetaminophen 325 MG TABLET PO PRN (18:21)
[2017-06-15] MEDS: Pregabalin 50 MG CAPSULE PO SCH (20:21)
[2017-06-15] MEDS: INSULIN DEGLUDEC 20 UNIT SQ SCH (20:26)
[2017-06-15] MEDS: Budesonide/Formoterol 160/4.5 MDI IH SCH ×2 (20:50→20:52)
[2017-06-15] MEDS ORDERED: Spironolactone 25 MG TABLET PO SCH (21:00)
[2017-06-16] MEDS: 0.9 % Sodium Chloride 1,000 ML IVC SCH ×3 (02:05→12:11)
[2017-06-16 06:41] LABS: Platelet Count 163 K/mcL (140-400)
[2017-06-16 06:43] LABS: Hemoglobin 17.5 g/dL (11.5-15.4); Immature Platelets 6.5 % (1.1-6.1); Mean Corpuscular HGB Conc 31.7 g/dL (31.6-35.5); Red Blood Count 6.99 M/mcL (3.82-4.97); Red Cell Distribution Width 26.1 % (11.5-14.5)
[2017-06-16 06:51] LABS: Hematocrit 55.2 % (35.3-44.9)
[2017-06-16 06:52] LABS: Calcium 8.7 mg/dL (8.6-10.8); Potassium 4.5 mEq/L (3.5-4.5)
[2017-06-16] MEDS: Budesonide/Formoterol 160/4.5 MDI IH SCH ×2 (07:37→19:37)
[2017-06-16] MEDS: Insulin LISPRO 300 UNITS/3 ML VIAL SQ SCH ×6 (08:00→14:55)
[2017-06-16] MEDS: Pregabalin 50 MG CAPSULE PO SCH ×3 (08:20→20:40)
[2017-06-16] MEDS: Nicotine 21 MG PATCH.TD24 TD SCH (08:20)
[2017-06-16] MEDS: APIXABAN 5 MG TABLET PO SCH ×2 (08:20→20:41)
[2017-06-16] MEDS: Aspirin Enteric Coated 81 MG Tablet PO SCH (08:20)
[2017-06-16] MEDS: Isosorbide MONOnitrate (24 HR) 60 MG TAB.ER.24H PO SCH (08:20)
[2017-06-16] MEDS: INSULIN DEGLUDEC 20 UNIT SQ SCH ×2 (09:00→20:41)
--- NOTE | 2017-06-16 10:31 | Internal Med Progress Note ---
Date of Encounter: 06/16/17 Time of Encounter: 10:28 - Assessment and plan (1) Gastroenteritis Current Visit: Yes Status: Resolved Assessment and plan: mostly viral cont supportive and symptomatic care no abx needed (2) Hypovolemia due to dehydration Current Visit: No Status: Resolved Assessment and plan: Improving. cont gentle hydration held BP meds for now (3) Fall from ground level Current Visit: Yes Status: Acute Assessment and plan: Pt did have unwitnessed fall y/d since pt is on eliquis , and mentioned about head injury too so will get stat CT of Head no contrast Also get X ray of both knees strict fall precautions PT / OT eval (4) VANESSA (acute kidney injury) Current Visit: Yes Status: Acute Assessment and plan: Due to dehydration / hypovolemia / medication with diuretics held diuretics improving Cr cont gentle hydration (5) Congestive heart failure Current Visit: No Status: Chronic Assessment and plan: diastolic CHF not in exacerbation resumed home meds except diuretics Qualifiers: Congestive heart failure type: diastolic Congestive heart failure chronicity: chronic Qualified Code(s): I50.32 - Chronic diastolic (congestive ) heart failure (6) Diabetes mellitus Current Visit: No Status: Chronic Assessment and plan: cont ISS Cont home regimen too Qualifiers: Diabetes mellitus type: other specified (including KOJO) Diabetes mellitus complication status: with unspecified complications Diabetes mellitus director long term care insulin use: with director long term care use Qualified Code(s): E13.8 - Other specified diabetes mellitus with unspecified complications; Z79.4 - long-term ( current) use of insulin (7) COPD (chronic obstructive pulmonary disease) Current Visit: No Status: Chronic Assessment and plan: not ine exacerbation does have chronic hypoxic resp failure..use 4 lit O2 at home now at baseline Qualifiers: COPD type: emphysema Emphysema type: unspecified Qualified Code(s): J43.9 - Emphysema, unspecified (8) Tobacco abuse Current Visit: No Status: Chronic Assessment and plan: counseled to quit on nicotine patch (9) Atrial fibrillation Current Visit: Yes Status: Chronic Assessment and plan: rate controlled on eliquis for ant coag Qualifiers: Atrial fibrillation type: paroxysmal Qualified Code(s): I48.0 - Paroxysmal atrial fibrillation - Subjective Interval history: Ms. Alanis is a 52 year old female with a past medical history history of diastolic CHF who was taking Bumex, Zaroxolyn, has also history of diabetes type 2 insulin-dependent, history of fibrillation on eliquis, came to the emergency room transfer from her [facility] care physician's office as they noticed that her blood pressure was in the 80s. The patient mentions that for the past 24 hours she has been having very watery diarrhea and has had 3 bowel movements , not able to eat much although denies any vomiting. Pt was admitted here for VANESSA due to hypovolemia and acute gastro enteritis. She stated she is feeling much better today. Denied any CP / SOB. Denied any more Nausea / vomiting. Apparently she had a unwitnessed fall yesterday in the hospital. Pt stated while she was in restroom she lost her balance , got tangles with oxygen canula and fell on her knees, also hit her head over the wall. Now denied any headache / no visual changes. Pt is A, A, O x 3 - Constitutional Vitals: Temp Pulse Resp BP Pulse Ox 98 F 62 16 119/70 92 06/16/17 07:09 06/16/17 07:09 06/16/17 07:38 06/16/17 07:09 06/16/17 07:38 General appearance: Present: A&O X 3 - Head Head exam: Present: atraumatic, normal inspection - Neck Neck exam general surgery: Present: supple - Respiratory Respiratory exam: Present: decreased breath sounds. Absent: rales, respiratory distress, rhonchi, wheezes, tachypnea - Cardiovascular Cardiovascular exam: Present: RRR, +S1, +S2. Absent: systolic murmur - GI/Abdominal GI/Abdominal exam: Present: normal bowel sounds, soft. Absent: rebound, rigid, tenderness - Extremities Exam Extremities exam: Absent: calf tenderness, pedal edema Additional comments: small abrasion briggs noticed just below both knees anteriorly. NO swelling / no effusion noticed in both knee joints. ROM limited in Left mainly due to pain - Neurological Exam Neurological exam: Present: alert, oriented X3 - Psychiatric Psychiatric exam: Present: normal affect, normal mood Internal Medicine: Result - Labs CBC & Chem 7: 06/16/17 05:16 06/16/17 05:16 Labs: Short CBC 06/16/17 Range/Units 05:16 WBC 9.8 (4.3-11.1) K/mcL Hgb 17.5 H (11.5-15.4) g/dL Hct 55.2 H (35.3-44.9) % Plt Count 163 (140-400) K/mcL BMP 06/16/17 06/16/17 00:04 05:16 Sodium 131 L 131 L Potassium 4.5 Chloride 100 Carbon Dioxide 23 BUN 45 H D Creatinine 1.56 H Glucose 199 H Calcium 8.7 Consult Discharge Plan - Plan Referrals: Iliana Almaguer MD [Primary Care Provider] -
[2017-06-16] MEDS: ZENPEP 40000 UNIT PO SCH ×3 (11:47→14:54)
[2017-06-16] MEDS: *HR* OxyCODONE/APAP 5/325 TABLET PO PRN (12:10)
[2017-06-16] MEDS: Acetaminophen 325 MG TABLET PO PRN (18:50)
[2017-06-17] MEDS: 0.9 % Sodium Chloride 1,000 ML IVC SCH (01:31)
[2017-06-17] MEDS: *HR* OxyCODONE/APAP 5/325 TABLET PO PRN (05:55)
[2017-06-17 07:00] LABS: Carbon Dioxide 26 mEq/L (19-29); Chloride 104 mEq/L (98-109); Sodium 136 mEq/L (136-145)
[2017-06-17 07:01] LABS: BUN/Creatinine Ratio 28 (6-26); Blood Urea Nitrogen 31 mg/dL (7-20); Glucose 291 mg/dL (70-99); Magnesium 1.6 mg/dL (1.6-2.6); Osmolality,Calculated 299 (280-300); eGFR For African Americans > 60 (> 60); eGFR For Non-African Americans 52 (> 60)
[2017-06-17 07:15] LABS: Basophils % 0.6 %; Mean Corpuscular Volume 80.7 fL (83.0-100.0); Segmented Neutrophils % 76.2 %
[2017-06-17 07:17] LABS: Basophils # 0.1 K/mcL (0.0-0.2); Eosinophils # 0.2 K/mcL (0.0-0.6); Eosinophils % 2.3 %; Hematocrit 52.7 % (35.3-44.9); Hemoglobin 16.2 g/dL (11.5-15.4); Immature Granulocytes % 0.6 % (0-4); Immature Platelets 5.9 % (1.1-6.1); Lymphocytes # 1.2 K/mcL (0.6-4.6); Lymphocytes % 13.1 %; Mean Corpuscular HGB Conc 30.7 g/dL (31.6-35.5); Mean Corpuscular Hemoglobin 24.8 pg (28.0-33.3); Monocytes # 0.7 K/mcL (0.0-1.3); Monocytes % 7.2 %; Neutrophils # 6.9 K/mcL (1.6-8.9); Platelet Count 147 K/mcL (140-400); Red Blood Count 6.53 M/mcL (3.82-4.97); Red Cell Distribution Width 26.2 % (11.5-14.5)
[2017-06-17] MEDS: Budesonide/Formoterol 160/4.5 MDI IH SCH (08:01)
[2017-06-17 08:08] LABS: Anisocytosis 2+ (Not Present); Platelet Estimate Normal (Normal)
[2017-06-17] MEDS: APIXABAN 5 MG TABLET PO SCH (08:21)
[2017-06-17] MEDS: Pregabalin 50 MG CAPSULE PO SCH (08:21)
[2017-06-17] MEDS: Aspirin Enteric Coated 81 MG Tablet PO SCH (08:21)
[2017-06-17] MEDS: Isosorbide MONOnitrate (24 HR) 60 MG TAB.ER.24H PO SCH (08:21)
[2017-06-17] MEDS: Nicotine 21 MG PATCH.TD24 TD SCH (08:22)
[2017-06-17] MEDS: Insulin LISPRO 300 UNITS/3 ML VIAL SQ SCH ×2 (09:12)
[2017-06-17 09:13] VITALS: BP 131/75
[2017-06-17] MEDS: ZENPEP 40000 UNIT PO SCH (09:13)
[2017-06-17] MEDS: INSULIN DEGLUDEC 20 UNIT SQ SCH (09:13)
--- NOTE | 2017-06-17 10:02 | Discharge Summary ---
Date of Encounter: 06/17/17 Time of Encounter: 09:58 - Discharge Diagnosis (1) Gastroenteritis Priority: Primary Status: Resolved (2) Hypovolemia due to dehydration Priority: Primary Status: Resolved (3) Fall from ground level Priority: Secondary Status: Acute (4) VANESSA (acute kidney injury) Priority: Secondary Status: Acute (5) Congestive heart failure Priority: Secondary Status: Chronic Qualifiers: Congestive heart failure type: diastolic Congestive heart failure chronicity: chronic Qualified Code(s): I50.32 - Chronic diastolic (congestive ) heart failure (6) Diabetes mellitus Priority: Secondary Status: Chronic Qualifiers: Diabetes mellitus type: other specified (including KOJO) Diabetes mellitus complication status: with unspecified complications 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: with superintendent marine oil terminal use Qualified Code(s): E13.8 - Other specified diabetes mellitus with unspecified complications; Z79.4 - assisted ( current) use of insulin (7) COPD (chronic obstructive pulmonary disease) Priority: Secondary Status: Chronic Qualifiers: COPD type: emphysema Emphysema type: unspecified Qualified Code(s): J43.9 - Emphysema, unspecified (8) Tobacco abuse Priority: Secondary Status: Chronic (9) Atrial fibrillation Priority: Secondary Status: Chronic Qualifiers: Atrial fibrillation type: paroxysmal Qualified Code(s): I48.0 - Paroxysmal atrial fibrillation - Discharge Medications Prescriptions: Nicotine Patch [Nicoderm] 21 mg TD DAILY #30 Tramadol HCl [Ultram] 50 mg PO BID PRN #10 tab PRN Reason: Headache Home Medications: Atorvastatin Calcium [Lipitor] 80 mg PO DAILY 06/30/15 [History] Budesonide/Formoterol 160/4.5 [Symbicort] 2 puff IH BID 06/30/15 [History] Montelukast [Singulair] 10 mg PO HS 06/30/15 [History] Pregabalin [Lyrica] 100 mg PO TID 06/30/15 [History] Tiotropium [Spiriva] 1 cap IH DAILY 06/30/15 [History] Citalopram [CeleXA] 20 mg PO DAILY 08/09/15 [History] Albuterol Neb [Proventil Neb] 2.5 mg IH Q6H PRN 04/17/16 [History] Albuterol Sulfate [Albuterol Inhaler] 2 puff IH Q4H PRN 04/17/16 [History] Metformin HCl [Metformin HCl ER] 1,000 mg PO BID 04/17/16 [History] Metoprolol [Lopressor] 25 mg PO BID 04/17/16 [History] Oxygen 4 l NS AD 04/17/16 [History] Pantoprazole Sodium [Protonix] 40 mg PO DAILY 04/17/16 [History] Lipase/Protease/Amylase [Rober Hernández 40,000 Units Capsule] 20,000 units PO TIDWM 08/21/16 [History] Losartan Potassium [Cozaar] 50 mg PO DAILY 08/21/16 [History] Insulin ASPART [Novolog Flexpen] 8 - 20 unit SQ TIDWM 02/13/17 [History] Insulin Degludec [Tresiba Flextouch U-100] 55 units SQ BID 02/13/17 [History] Nitroglycerin [Nitrostat] 0.4 mg SL Q5M PRN 02/13/17 [History] Polyethylene Glycol 3350 17 gm PO BID PRN 02/13/17 [History] Aspirin Enteric Coated [Aspirin EC] 81 mg PO DAILY tablet. 02/15/17 [Rx] Cholecalciferol (D-3) [Vitamin D] 5,000 unit PO BID 02/27/17 [History] Fluticasone Propionate Nasal [Flonase] 100 mcg NS DAILY 02/27/17 [History] Isosorbide MONOnitrate [Isosorbide Mononitrate ER] 120 mg PO DAILY 02/27/17 [ History] Apixaban [Eliquis] 5 mg PO BID #60 tablet 03/01/17 [Rx] Cholestyramine 4 gm PO BIDAC 06/15/17 [History] Lipase/Protease/Amylase [Rober Hernández 40,000 Units Capsule] 40,000 units PO TID 02/26 [History] Loperamide [Imodium] 2 mg PO Q4HR PRN 06/15/17 [History] Ranitidine HCl [Zantac] 150 mg PO BID 06/15/17 [History] metOLazone [Zaroxolyn] 2.5 mg PO 2XW 06/15/17 [History] Acetaminophen [Tylenol Arthritis] 650 mg PO Q8H PRN #0 06/17/17 [Rx] Bumetanide [Bumex] 1 mg PO DAILY #0 06/17/17 [Rx] Nicotine Patch [Nicoderm] 21 mg TD DAILY #30 06/17/17 [Rx] Tramadol HCl [Ultram] 50 mg PO BID PRN #10 tab 06/17/17 [Rx] Allergies/Adverse Reactions: Allergies amylase [From Creon] Adverse Reaction (Verified 02/13/17 07:44) Diarrhea estrogens, conjugated [From Premarin] Adverse Reaction (Verified 02/13/17 07:44) Anxiety hydrocodone [From Vicodin] Adverse Reaction (Verified 02/13/17 07:44) Anxiety lipase [From Creon] Adverse Reaction (Verified 02/13/17 07:44) Diarrhea metronidazole [From Flagyl] Adverse Reaction (Verified 02/13/17 07:44) See Comments YEAST INFECTION protease [From Creon] Adverse Reaction (Verified 02/13/17 07:44) Diarrhea Tetracycline Adverse Reaction (Verified 02/13/17 07:44) Anxiety tramadol [From Ultram] Adverse Reaction (Verified 02/13/17 07:44) Muscle Pain Procedures/tests Complete & Pending: Procedures Performed prior 72 hours Category Date Time Status Head CT without Contrast [CT head/brain wo con] [CT] Cat Scan 06/16/17 10:25 Completed Stat Date of admission: 06/15/17 16:26 Primary care physician: Iliana Almaguer MD Consults: 06/16/17 10:25 Consult to Physical Therapy [CONS] Routine Comment: Evaluate, develop and implement POC Reason for Consult: deconditioning OT [Consult to Occupational Therapy] [CONS] Routine Comment: Evaluate, develop and implement POC Reason for Consult: deconditioning 06/16/17 21:53 Consult to Leveling Machine Operator [CONS] Routine Comment: Reason for Consult: DM on insulin pump - Patient Status Disposition: Home, Self-Care Condition: Good Overall status at discharge: patient is back to baseline - Discharge Instructions Follow Up With: Iliana Almaguer MD [Primary Care Provider] - (Please call and schedule an appointment Sunday) Additional Instructions: Stop taking Aldactone until you see your PCP Dr. Almaguer You can start taking Bumex from Sunday ( 06/19/17 ) Please got for lab test BMP on Sunday and f/u with PCP Dr. Almaguer about test results - Diet and Activity Activity: increase activity as tolerated Diet: diabetic diet, low salt diet Hospital course: Ms. Alanis is a 52 year old female with a past medical history history of diastolic CHF who was taking Bumex, Zaroxolyn, has also history of diabetes type 2 insulin-dependent, history of fibrillation on eliquis, came to the emergency room transfer from her memory care physician's office as they noticed that her blood pressure was in the 80s. The patient mentions that for the past 24 hours she has been having very watery diarrhea and has had 3 bowel movements , not able to eat much although denies any vomiting. Pt was admitted here for VANESSA due to hypovolemia and acute gastro enteritis. Pt was started in aggressive hydration and held all her diuretics and nephro toxic medications. her Cr started trending down. Her viral gastro enteritis resolved completely. She is tolerating PO intake well since y/d. She still has slightly elevated potassium at 5.o, so recommend to stop taking Aldactone until she sees her pCP Dr Almaguer , also gave rx for f/u labs BMP on Sunday to f/u with PCP for results. Recommend to start taking her Bumex from Sunday. Apparently she had a unwitnessed fall yesterday in the hospital. Pt stated while she was in restroom she lost her balance , got tangled with oxygen canula and fell on her knees, also hit her head over the wall. Now denied any headache / no visual changes. We did get X ray of both knee - which were unremarkable, no fractures notice. Also obtained CT of Head since pt was on eliquis. Her CT of head - did not show any acute intracranial hemorrhage. Pt is ambulating well , so will d/c her home today in stable condition. - Time Spent with Patient Total time spent providing and/or coordinating discharge services: - Constitutional Vitals: Temp Pulse Resp BP Pulse Ox 98.5 F 75 17 131/75 95 06/17/17 08:00 06/17/17 08:00 06/17/17 08:02 06/17/17 08:00 06/17/17 08:02 General appearance: Present: A&O X 3, pleasant, no acute distress - Head Head exam: Present: atraumatic, normal inspection - Neck Neck exam general surgery: Present: full ROM, supple. Absent: lymphadenopathy, tenderness, thyromegaly - Respiratory Respiratory exam: Present: decreased breath sounds. Absent: rales, respiratory distress, rhonchi, wheezes - Cardiovascular Cardiovascular exam: Present: RRR, +S1, +S2. Absent: systolic murmur - GI/Abdominal GI/Abdominal exam: Present: normal bowel sounds, soft. Absent: rebound, rigid, tenderness - Extremities Exam Extremities exam: Present: pedal edema (traceble). Absent: calf tenderness, tenderness - Neurological Exam Neurological exam: Present: alert, oriented X3 - Psychiatric Psychiatric exam: Present: normal affect, normal mood
== END 2017-06-17 11:18 | disposition home or self-care (01) | DRG 682 ==
LOC: EMEROO 12:28 → 2ANU 12:28
PROVIDERS: ADMIT Internal Medicine; ATTEND Internal Medicine

== ENCOUNTER 2017-07-31 17:31 | Observation (INO) ==
--- NOTE | 2017-07-31 18:59 | Emergency Department Note ---
Disposition Clinical Impression: Chest pain of uncertain etiology Disposition: Admitted As Inpatient Condition: Good General Adult HPI - General Chief complaint: ED Cardiac Arrest/CPR Stated complaint: CP Time Seen by Provider: 07/31/17 18:35 Source: patient Limitations: no limitations Nursing Notes Reviewed: Yes Vital Signs Reviewed: Yes - History of Present Illness HPI Narrative: Mrs. Alanis, a 52yo female, presents from her primary care physician's office by EMS for evaluation of chest pain. Onset 2 hours prior to arrival. Described as a substernal starburst with radiation to her back as well as bilateral arm heaviness. She did have associated nausea, dyspnea, and diaphoresis. Patient is chest pain-free at this time. She is anticoagulated on xARALTO for atrial fibrillation. Patient was diagnosed with pneumonia 5 days ago and has been on Ceftinir oral antibiotic to me: Managed as an outpatient. She has COPD and is oxygen dependent 4 L nasal cannula. Patient has multiple risk factors: Congestive heart failure,'s COPD with chronic respiratory failure, every day smoker, hypertension, hyperlipidemia, diabetes, atrial fibrillation. No history of kidney disease. Pain Scale: 0 - Related Data Home Medications Medication Instructions Recorded Confirmed Atorvastatin Calcium [Lipitor] 80 mg PO DAILY 06/30/15 07/31/17 Montelukast [Singulair] 10 mg PO HS 06/30/15 07/31/17 Pregabalin [Lyrica] 100 mg PO BID 06/30/15 07/31/17 Tiotropium [Spiriva] 1 cap IH DAILY 06/30/15 07/31/17 Citalopram [CeleXA] 20 mg PO DAILY 08/09/15 07/31/17 Albuterol Neb [Proventil Neb] 2.5 mg IH Q6H PRN 04/17/16 07/31/17 Albuterol Sulfate [Albuterol 2 puff IH Q4H PRN 04/17/16 07/31/17 Inhaler] Metoprolol [Lopressor] 25 mg PO BID 04/17/16 07/31/17 Oxygen 4 l NS AD 04/17/16 07/31/17 Pantoprazole Sodium [Protonix] 40 mg PO DAILY 04/17/16 07/31/17 Losartan Potassium [Cozaar] 50 mg PO DAILY 08/21/16 07/31/17 Insulin ASPART [Novolog Flexpen] 0 unit SQ DAILY 04/04/17 09/19/17 Nitroglycerin [Nitrostat] 0.4 mg SL Q5M PRN 02/13/17 07/31/17 Cholecalciferol (D-3) [Vitamin D] 5,000 unit PO BID 02/27/17 07/31/17 Fluticasone Propionate Nasal 100 mcg NS DAILY 02/27/17 07/31/17 [Flonase] Isosorbide MONOnitrate [Isosorbide 120 mg PO DAILY 02/27/17 07/31/17 Mononitrate ER] Ranitidine HCl [Zantac] 150 mg PO BID 06/15/17 07/31/17 metOLazone [Zaroxolyn] 2.5 mg PO SUWE 06/15/17 07/31/17 Bumetanide [Bumex] 2 mg PO BID 07/31/17 07/31/17 SUMAtriptan succinate [Imitrex] 50 mg PO DAILY PRN 07/31/17 07/31/17 Topiramate [Topiramate] 50 mg PO BID 07/31/17 07/31/17 Previous Rx's Medication Instructions Recorded Aspirin Enteric Coated [Aspirin EC] 81 mg PO DAILY tablet. 02/15/17 Apixaban [Eliquis] 5 mg PO BID #60 tablet 03/01/17 Acetaminophen [Tylenol Arthritis] 650 mg PO Q8H PRN #0 06/17/17 Nicotine Patch [Nicoderm] 21 mg TD DAILY #30 06/17/17 Tramadol HCl [Ultram] 50 mg PO BID PRN #10 tab 06/17/17 Allergies Allergy/AdvReac Type Severity Reaction Status Date / Time amylase [From Creon] AdvReac Diarrhea Verified 02/13/17 07:44 estrogens, conjugated AdvReac Anxiety Verified 02/13/17 07:44 [From Premarin] hydrocodone [From Vicodin] AdvReac Anxiety Verified 02/13/17 07:44 lipase [From Creon] AdvReac Diarrhea Verified 02/13/17 07:44 metronidazole [From Flagyl] AdvReac See Verified 02/13/17 07:44 Comments protease [From Creon] AdvReac Diarrhea Verified 02/13/17 07:44 Tetracycline AdvReac Anxiety Verified 04/04/17 07:44 tramadol [From Ultram] AdvReac Muscle Pain Verified 02/13/17 07:44 All systems ED: reviewed and negative except as stated. Review of Systems: As Per HPI Past Medical History - Past Medical History Medical history: Reports: arthritis, asthma, CHF, COPD, diabetes, hyperlipidemia , hypertension, kidney stones, other Surgical history: Reports: cholecystectomy, other Psychiatric history: Reports: depression [employer] history: Reports: no MANA[employer] history, 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 - Social History Smoking Status: Current every day smoker Smokeless Tobacco Status: No Alcohol use: Reports: none Drug use: Reports: none Physical Exam - General Limitations: no limitations General appearance: in no apparent distress Course Course Narrative: Patient presents from her primary care physician's office via EMS for evaluation of chest pain. Her story is concerning in that she describes as a substernal starburst pattern radiate outward with bilateral arm heaviness, radiation to her back, dyspnea, diaphoresis, nausea. She has multiple risk factors of COPD with oxygen dependence, every day smoker, hypertension, hyperlipidemia, diabetes, congestive heart failure. Patient is currently being treated with outpatient cefdinir for pneumonia. Patient notes that she has lost 5 pounds recently and has not noticed any increase in swelling of her extremities. She is chest pain-free at this time. EKG is concerning for new T-wave inversions in the septal leads. Patient is chest pain-free at this time. Her blood pressure is little bit soft as well. We will provide aspirin, await labs, and manage accordingly. Anticipate initiation of heparin drip and admission. Initial troponin is normal. No indication for heparin drip at this time. We will provide aspirin by mouth. Chest x-ray is unremarkable. His creatinine is elevated which is consistent with her baseline chronic kidney disease. Assessment: Chest pain of uncertain etiology. Admit for rule out ACS. I discussed the patient with the admitting hospitalist, Dr. Seymour, who agrees to accept the patient for chest pain rule out ACS. Vital Signs Temperature 98.4 F 07/31/17 17:59 Pulse Rate 54 07/31/17 17:59 Respiratory Rate 18 07/31/17 17:59 Blood Pressure 118/75 07/31/17 17:59 O2 Sat by Pulse Oximetry 97 07/31/17 17:59 Temperature 97.7 F 07/31/17 22:47 Pulse Rate 55 07/31/17 22:47 Respiratory Rate 16 07/31/17 22:47 Blood Pressure 105/69 07/31/17 22:47 O2 Sat by Pulse Oximetry 96 07/31/17 22:47 Oxygen Delivery Oxygen Delivery Nasal Cannula Medical Decision Making - MDM Narrative Medical decision making narrative: Chest pain, acute coronary syndrome rule out - Medical Records Medical records reviewed: Yes I reviewed the patient's medical records. - Lab Data Lab results reviewed: Yes I reviewed the patient's lab results. Result diagrams: 08/01/17 04:38 07/31/17 19:51 Lab Results 07/31/17 07/31/17 07/31/17 Range/Units 19:51 19:51 19:51 WBC 9.5 (4.3-11.1) K/mcL RBC 6.79 H (3.82-4.97) M/mcL Hgb 16.6 H (11.5-15.4) g/dL Hct 53.6 H (35.3-44.9) % MCV 78.9 L (83.0-100.0) fL MCH 24.4 L (28.0-33.3) pg MCHC 31.0 L (31.6-35.5) g/dL RDW 21.6 H (11.5-14.5) % Plt Count 222 (140-400) K/mcL MPV 9.9 (9.4-12.4) fL Immature Gran % 0.4 (0-4) % Seg Neutrophils % 71.2 % Lymphocytes % 17.4 % Monocytes % 8.7 % Eosinophils % 1.6 % Basophils % 0.7 % Neutrophils # 6.8 (1.6-8.9) K/mcL Lymphocytes # 1.7 (0.6-4.6) K/mcL Monocytes # 0.8 (0.0-1.3) K/mcL Eosinophils # 0.2 (0.0-0.6) K/mcL Basophils # 0.1 (0.0-0.2) K/mcL PT 14.1 H (9.4-12.1) Seconds INR 1.3 APTT 37.5 H (26.0-36.0) Seconds Sodium 139 (136-145) mEq/L Potassium 3.7 (3.5-4.5) mEq/L Chloride 97 L (98-109) mEq/L Carbon Dioxide 32 H (19-29) mEq/L BUN 37 H (7-20) mg/dL Creatinine 1.36 H (0.57-1.11) mg/dL Est GFR ( Amer) 49 L (> 60) Est GFR (Non-Af Amer) 41 L (> 60) BUN/Creatinine Ratio 27 H (6-26) Glucose 117 H (70-99) mg/dL Calculated Osmolality 298 (280-300) Calcium 9.1 (8.6-10.8) mg/dL Troponin I (0-0.03) ng/mL B-Natriuretic Peptide (0-100) pg/mL 07/31/17 07/31/17 Range/Units 19:51 19:51 WBC (4.3-11.1) K/mcL RBC (3.82-4.97) M/mcL Hgb (11.5-15.4) g/dL Hct (35.3-44.9) % MCV (83.0-100.0) fL MCH (28.0-33.3) pg MCHC (31.6-35.5) g/dL RDW (11.5-14.5) % Plt Count (140-400) K/mcL MPV (9.4-12.4) fL Immature Gran % (0-4) % Seg Neutrophils % % Lymphocytes % % Monocytes % % Eosinophils % % Basophils % % Neutrophils # (1.6-8.9) K/mcL Lymphocytes # (0.6-4.6) K/mcL Monocytes # (0.0-1.3) K/mcL Eosinophils # (0.0-0.6) K/mcL Basophils # (0.0-0.2) K/mcL PT (9.4-12.1) Seconds INR APTT (26.0-36.0) Seconds Sodium (136-145) mEq/L Potassium (3.5-4.5) mEq/L Chloride (98-109) mEq/L Carbon Dioxide (19-29) mEq/L BUN (7-20) mg/dL Creatinine (0.57-1.11) mg/dL Est GFR ( Amer) (> 60) Est GFR (Non-Af Amer) (> 60) BUN/Creatinine Ratio (6-26) Glucose (70-99) mg/dL Calculated Osmolality (280-300) Calcium (8.6-10.8) mg/dL Troponin I 0.01 (0-0.03) ng/mL B-Natriuretic Peptide 188 H (0-100) pg/mL - Radiology Data Radiology results reviewed: Yes I reviewed the patient's radiology results. Chest x-ray is negative for acute intrathoracic pathology. Reviewed by myself and confirmed by the radiologist - EKG Data EKG #1 EKG attestation: Yes I reviewed and interpreted this EKG. EKG results narrative: EKG dated 07/31/17 at 19:04 interpreted as sinus bradycardia with a rate of 51. Normal intervals. Normal axis. Right bundle branch block. New T-wave inversions in septal leads with mild ST depression in V2, V3. Compared to previous dictated is concerning for acute ischemia. Attestation Statement - Attestation Attestation: I, Valdo Chisholm DO, examined this patient [id number] and my medical decision-making was reviewed with Dr. Bartolome Grossman, Resident Physician. I agree with the documented findings, disposition and treatment plan as described except to the extent set forth below. Please see my progress notes for details. 52-year-old female with multiple cardiac risk factors including COPD emphysema and previous cardiac stenting presents emergency room with chest pain similar to her previous anginal symptoms. She has nitroglycerin at home. She has been taking it with some mild relief of the symptoms. Currently not emergency room she is chest pain-free. Symptom onset earlier this morning. She is seen by her primary care provider recommended to come the emergency room. EKG reviewed by myself and it shows some mild ST segment depressions and T-wave inversions in leads V1 and V2 V3 and V4 appear to be different in comparison to an EKG on . Patient does have known A. fib and appears to be in sinus rhythm at this time. She is currently on a blood thinner. Patient will most likely need cardiac catheterization and cardiac evaluation during this treatment course. Patient informed that at this time. Patient restarted on mental management with an aspirin given here. Will discuss the need for heparin considering the patient is on Xarelto at this time. Patient otherwise is hemodynamically stable in no distress. Lungs are clear heart is regular abdomen is soft nontender nondistended with no guarding no rigidity no peritoneal symptoms. Patient has stable EKG at this time labs are pending. Admission process to be completed. See detailed documentation of the physical exam, medical intervention, medical decision making process in consultation and the resident physician's note. Heart Score - Score History: Highly Suspicious EKG: Non Specific repolarisation Disturbance Age: 45-65 Risk Factors: Equal/Greater than 3 risk factor or history of atherosclerotic disease Troponin: Less than normal limit HEART Score Total: 6
[2017-07-31] MEDS ORDERED: Aspirin 81 MG TAB.CHEW PO ONE (19:14)
[2017-07-31] MEDS ORDERED: Ipratropium/Albuterol Neb 3 ML IH ONE (19:52)
[2017-07-31 20:07] LABS: Basophils # 0.1 K/mcL (0.0-0.2); Basophils % 0.7 %; Eosinophils # 0.2 K/mcL (0.0-0.6); Eosinophils % 1.6 %; Hematocrit 53.6 % (35.3-44.9); Hemoglobin 16.6 g/dL (11.5-15.4); Immature Granulocytes % 0.4 % (0-4); Lymphocytes # 1.7 K/mcL (0.6-4.6); Lymphocytes % 17.4 %; Mean Corpuscular Hemoglobin 24.4 pg (28.0-33.3); Mean Corpuscular Volume 78.9 fL (83.0-100.0); Mean Platelet Volume 9.9 fL (9.4-12.4); Monocytes # 0.8 K/mcL (0.0-1.3); Monocytes % 8.7 %; Neutrophils # 6.8 K/mcL (1.6-8.9); Platelet Count 222 K/mcL (140-400); Red Blood Count 6.79 M/mcL (3.82-4.97); Red Cell Distribution Width 21.6 % (11.5-14.5); Segmented Neutrophils % 71.2 %
[2017-07-31 20:17] LABS: Calcium 9.1 mg/dL (8.6-10.8); Potassium 3.7 mEq/L (3.5-4.5)
[2017-07-31 20:19] LABS: INR 1.3; Prothrombin Time 14.1 Seconds (9.4-12.1)
[2017-07-31 20:22] LABS: Activated Partial Thrombo Time 37.5 Seconds (26.0-36.0)
[2017-07-31] MEDS ORDERED: Acetaminophen 325 MG TABLET PO PRN (22:52)
[2017-07-31] MEDS ORDERED: Ondansetron 4 MG/2 ML VIAL IVP PRN (22:52)
[2017-07-31] MEDS ORDERED: Naloxone 0.4 MG/ML INJ IVP PRN (22:52)
--- NOTE | 2017-07-31 22:57 | Internal Med History&Physical ---
<Darion Kaiser - Last Filed: 08/01/17 05:48> Date of Encounter: 08/01/17 Time of Encounter: 22:15 Assessment and Plan (1) Chest pain of uncertain etiology Current visit: Yes Status: Acute Patient chest pain of uncertain origin currently. Her pain is not pleuritic, no rash present, pain is not asociated with eating or exertion. EKG did show some T -wave inversions in the pre-cordial leads, but initial trops have been negative. Will have SL nitro and morphine available for continued chest pain Will recheck patient echocardiogram will obtain stress test hold beta-blockers for stress will check A1c (2) Congestive heart failure Current visit: No Status: Acute Patient has history of HFpEF with moderate dialstolic dysfunction. She presents with some lower extremity edema on exam. Continue home diuretics will obtain echo Qualifiers: Congestive heart failure type: diastolic Congestive heart failure chronicity: acute on chronic Qualified Code(s): I50.33 - Acute on chronic diastolic (congestive) heart failure (3) CKD (chronic kidney disease) Current visit: Yes Status: Suspected Suspect that current decreased renal function represents development of chronic kidney disease. Patient has history of insulin dependent diabetes mellitus and all of her most recent labwork show decreased renal function. Will continue to monitor renal function with daily chemistry avoid nephrotoxic agents Qualifiers: Chronic kidney disease stage: unspecified stage Qualified Code(s): N18.9 - Chronic kidney disease, unspecified (4) Atrial fibrillation Current visit: No Status: Chronic Patient has history of atrial fibrillation with lopressor and eliquis at home. Will continue patient home eliquis hold patient metoprolol for stress test tomorrow Qualifiers: Atrial fibrillation type: paroxysmal Qualified Code(s): I48.0 - Paroxysmal atrial fibrillation (5) COPD (chronic obstructive pulmonary disease) Current visit: No Status: Chronic Patient takes several medications at home for her COPD, including: tiotropium, montelukast, fluticasone, albuterol inhaled, and albuterol nebulizer. She does not appear to be in exacerbation at the moment. Will continue patient home medications Qualifiers: COPD type: emphysema Emphysema type: unspecified Qualified Code(s): J43.9 - Emphysema, unspecified (6) DVT prophylaxis Current visit: No Status: Acute Patient on Eliquis at home for atrial fibrillation Continue patient home eliquis (7) Insulin dependent diabetes mellitus Current visit: No Status: Chronic Patient uses insulin pump at home normally Will hold patient insulin pump start insulin sliding scale Internal Medicine - H&P: HPI Chief complaint: Chest Pain Admitted From: Home Plans for Post Hospital Care: Home History of present illness: Ms. Alanis is a 52 year old female heart failure with preserved ejection fraction, atrial fibrillation, COPD, diabetes mellitus, and hypertension presents to [facility] because of chest pain that she had been experiencing at home. Patient is not the best historian. She reports that she presents the emergency room from her doctor's office, at her doctor's request. She states that she has been having chest pain for the last 5 days. She describes the pain as a "starburst" feeling in the substernal region that radiates outward. Each episode last about 3-4 minutes and is very severe in character. She states that it happens at random and is not associated with activity or rest, or anything in particular. Nothing that she has noticed makes the pain better and nothing in particular makes the pain worse. During these episodes of chest pain she denies having any shortness of breath, diaphoresis, nausea, or lightheadedness. Though, she does report having occasional lightheadedness. She denies palpitations, denies fever and chills. Past Med Surg Social Fam HX - Past Medical History Medical history: arthritis, asthma, CHF, COPD, diabetes, hyperlipidemia, hypertension, kidney stones, other Psychiatric history: depression - Past Surgical History Surgical History: cholecystectomy, other - Social History Smoking Status: Current every day smoker Smokeless Tobacco Status: No Alcohol use: none Drug use: none - Family History Father Adopted: No Family Member Ethnicity: Non- Living Status: Still Living Hx Family Cardiac Disorders: Yes (CABG x3, HTN) Hx Family Respiratory Disorders: Yes (COPD) Hx Family Cancer: No Hx Family GI Disorders: No Hx Family Endocrine Disorder: Yes Hx Family Neuromuscular Disorders: No Hx Family Neurologic Disorders: No Hx Family HEENT Disorders: No Hx Family Autoimmune Disorders: No Mother Family Member Ethnicity: Non- Living Status: Still Living Hx Family Cardiac Disorders: Yes Hx Family Respiratory Disorders: No Hx Family Cancer: Yes Hx Family GI Disorders: No Hx Family Endocrine Disorder: Yes Hx Family Neuromuscular Disorders: No Hx Family Neurologic Disorders: No Hx Family HEENT Disorders: No Hx Family Autoimmune Disorders: No Internal Medicine - H&P: Meds Atorvastatin Calcium [Lipitor] 80 mg PO DAILY 06/30/15 [History] Montelukast [Singulair] 10 mg PO HS 06/30/15 [History] Pregabalin [Lyrica] 100 mg PO BID 06/30/15 [History] Tiotropium [Spiriva] 1 cap IH DAILY 06/30/15 [History] Citalopram [CeleXA] 20 mg PO DAILY 08/09/15 [History] Albuterol Neb [Proventil Neb] 2.5 mg IH Q6H PRN 04/17/16 [History] Albuterol Sulfate [Albuterol Inhaler] 2 puff IH Q4H PRN 04/17/16 [History] Metoprolol [Lopressor] 25 mg PO BID 04/17/16 [History] Oxygen 4 l NS AD 04/17/16 [History] Pantoprazole Sodium [Protonix] 40 mg PO DAILY 04/17/16 [History] Losartan Potassium [Cozaar] 50 mg PO DAILY 08/21/16 [History] Insulin ASPART [Novolog Flexpen] 0 unit SQ DAILY 02/13/17 [History] Nitroglycerin [Nitrostat] 0.4 mg SL Q5M PRN 02/13/17 [History] Aspirin Enteric Coated [Aspirin EC] 81 mg PO DAILY tablet. 02/15/17 [Rx] Cholecalciferol (D-3) [Vitamin D] 5,000 unit PO BID 02/27/17 [History] Fluticasone Propionate Nasal [Flonase] 100 mcg NS DAILY 02/27/17 [History] Isosorbide MONOnitrate [Isosorbide Mononitrate ER] 120 mg PO DAILY 02/27/17 [ History] Apixaban [Eliquis] 5 mg PO BID #60 tablet 03/01/17 [Rx] Ranitidine HCl [Zantac] 150 mg PO BID 06/15/17 [History] metOLazone [Zaroxolyn] 2.5 mg PO SUWE 06/15/17 [History] Acetaminophen [Tylenol Arthritis] 650 mg PO Q8H PRN #0 06/17/17 [Rx] Nicotine Patch [Nicoderm] 21 mg TD DAILY #30 06/17/17 [Rx] Tramadol HCl [Ultram] 50 mg PO BID PRN #10 tab 06/17/17 [Rx] Bumetanide [Bumex] 2 mg PO BID 07/31/17 [History] SUMAtriptan succinate [Imitrex] 50 mg PO DAILY PRN 07/31/17 [History] Topiramate [Topiramate] 50 mg PO BID 07/31/17 [History] 3 Allergy/AdvReac Type Severity Reaction Status Date / Time amylase [From Creon] AdvReac Diarrhea Verified 02/13/17 07:44 estrogens, conjugated AdvReac Anxiety Verified 02/13/17 07:44 [From Premarin] hydrocodone [From Vicodin] AdvReac Anxiety Verified 02/13/17 07:44 lipase [From Creon] AdvReac Diarrhea Verified 02/13/17 07:44 metronidazole [From Flagyl] AdvReac See Verified 02/13/17 07:44 Comments protease [From Creon] AdvReac Diarrhea Verified 02/13/17 07:44 Tetracycline AdvReac Anxiety Verified 02/13/17 07:44 tramadol [From Ultram] AdvReac Muscle Pain Verified 02/13/17 07:44 Review of systems: Gen: Denies fever, denies chills, denies weakness, denies fatigue CV: Reports chest pain, denies exertional chest pain or dyspnea, denies palpitations Resp: Denies shortness of breath, denies dyspnea, denies pleuritic pain, denies coughing, denies changes in phlegm production, denies wheeze GI: Denies nausea, denies vomiting, denies abdominal pain, denies constipation, denies diarrhea, denies hematochezia, denies melena Neuro: Denies headache, denies confusion, reports occasional lightheadedness denies focal weakness, denies numbness, denies tingling Skin: Denies bruising, denies rash : Denies flank pain, denies dysuria, denies hematuria - Constitutional Vitals: Temp Pulse Resp BP Pulse Ox 97.7 F 55 16 105/69 96 07/31/17 22:47 07/31/17 22:47 07/31/17 22:47 07/31/17 22:47 07/31/17 22:47 Exam: General: Cooperative, pleasant, no acute distress, alert and oriented 2, answers questions appropriately HEENT: Normocephalic, atraumatic, neck supple, trachea midline, Conjunctiva pink , sclera anicteric, PERRL, oral mucosa moist, no orophargeal erythema or exudates Respiratory: No accessory muscle usage, clear to auscultation bilaterally, no wheezes/rhonchi/rales appreciated Cardiovascular: Regular rate and rhythm, S1 and S2 present, no murmurs/rubs/ gallops/clicks appreciated GI/abdominal: Nondistended, nontender, soft, normal bowel sounds, no peritoneal signs, insulin pump in place Extremities: No calf tenderness, noncyanotic, no pedal edema appreciated, warm, lower extremity pulses palpable and symmetrical Neurological: Alert and oriented 2, no facial droop, no focal deficits Skin: Dry, intact, normal color Internal Med - H&P Results - Labs CBC & Chem 7: 07/31/17 19:51 07/31/17 19:51 <Yvette Seymour - Last Filed: 08/01/17 06:42> Date of Encounter: 08/01/17 Time of Encounter: 12:06 Internal Medicine - H&P: HPI History of present illness: Ms. Alanis is a 52 year old female All Systems PM: A 10-system review of systems was performed and is negative for pertinent findings except as documented above in the HPI. - Constitutional Vitals: Temp Pulse Resp BP Pulse Ox 97.7 F 55 16 105/69 96 07/31/17 22:47 07/31/17 22:47 07/31/17 22:47 07/31/17 22:47 07/31/17 22:47 Internal Med - H&P Results - Labs CBC & Chem 7: 08/01/17 04:38 07/31/17 19:51 Labs: Short CBC 08/01/17 Range/Units 04:38 WBC 9.0 (4.3-11.1) K/mcL Hgb 16.5 H (11.5-15.4) g/dL Hct 53.8 H (35.3-44.9) % Plt Count 210 (140-400) K/mcL Neutrophils # 6.3 (1.6-8.9) K/mcL Cardiac Enzymes 08/01/17 Range/Units 04:38 Troponin I 0.01 (0-0.03) ng/mL - Attending Attestation I independently saw and examined the patient. She is admitted for substernal chest pain. Given her risk factors, will admit to rule out ACS. Serial TNI negative so far, will obtain nuclear stress in am. Patient is a poor historian and reports of living alone and taking care of herself. Patient appears disheveled. Please obtain PT/OT evaluation prior to discharge. History of DM, hold patient's insulin pump and started her on sliding scale insulin algorithm. Pt is noted to have b/l pedal edema, will obtain 2D echo to evaluate LVEF. During my evaluation, patient denied any chest pain or any other discomfort. Case discussed with resident physician Dr. Darion Kaiser, I agree with his documented findings, assessment, and plan except as listed above.
[2017-07-31] MEDS ORDERED: 0.9 % Sodium Chloride 1,000 ML IVC SCH (23:00)
[2017-07-31] MEDS ORDERED: SUMAtriptan succinate 50 MG TABLET PO PRN (23:03)
[2017-07-31] MEDS ORDERED: Nitroglycerin 0.4 MG TAB.SUBL SL PRN (23:03)
[2017-07-31] MEDS ORDERED: traMADol 50 MG TABLET PO PRN (23:03)
[2017-07-31] MEDS ORDERED: *HR* Dextrose 50 % in Water (Syg) 50 ML SYRINGE IVP PRN (23:06)
[2017-07-31] MEDS ORDERED: D5% in Water 1,000 ML IVC PRN (23:06)
[2017-07-31] MEDS ORDERED: Dextrose Gel 15 GM PO PRN ×2 (23:06)
[2017-07-31] MEDS: Nicotine 21 MG PATCH.TD24 TD SCH (23:47)
[2017-08-01] MEDS ORDERED: metOLazone 2.5 MG TABLET PO SCH (02:00)
[2017-08-01 06:10] LABS: Basophils # 0.1 K/mcL (0.0-0.2); Basophils % 0.8 %; Eosinophils # 0.2 K/mcL (0.0-0.6); Eosinophils % 2.2 %; Hematocrit 53.8 % (35.3-44.9); Hemoglobin 16.5 g/dL (11.5-15.4); Immature Granulocytes % 0.3 % (0-4); Immature Platelets 4.3 % (1.1-6.1); Lymphocytes # 1.6 K/mcL (0.6-4.6); Mean Corpuscular HGB Conc 30.7 g/dL (31.6-35.5); Mean Corpuscular Hemoglobin 24.2 pg (28.0-33.3); Mean Platelet Volume 10.3 fL (9.4-12.4); Monocytes # 0.8 K/mcL (0.0-1.3); Monocytes % 8.7 %; Neutrophils # 6.3 K/mcL (1.6-8.9); Platelet Count 210 K/mcL (140-400); Red Blood Count 6.81 M/mcL (3.82-4.97); Red Cell Distribution Width 21.4 % (11.5-14.5)
[2017-08-01] MEDS: Albuterol 2.5 MG/3 ML NEBULIZER IH SCH ×4 (06:12→22:37)
[2017-08-01] MEDS ORDERED: Regadenoson 0.4 MG/5 ML SYRINGE IVP ONE (06:54)
[2017-08-01 07:03] LABS: Hemoglobin A1C 12.2 %
[2017-08-01 07:04] LABS: Alanine Aminotransferase 9 Units/L (0-55); Albumin 2.8 g/dL (3.5-5.0); Albumin/Globulin Ratio 0.7 (1.1-2.2); Alkaline Phosphatase 110 Units/L (38-126); Aspartate Amino Transferase 14 Units/L (5-34); BUN/Creatinine Ratio 27 (6-26); Bilirubin,Total 0.8 mg/dL (0.2-1.2); Blood Urea Nitrogen 31 mg/dL (7-20); Calcium 9.1 mg/dL (8.6-10.8); Carbon Dioxide 32 mEq/L (19-29); Chloride 97 mEq/L (98-109); Chol/HDL Ratio 4.6 (0-4.9); Cholesterol 132 mg/dL (< 200); Globulin 3.8 g/dL (2.4-3.5); Glucose 87 mg/dL (70-99); HDL Cholesterol 29 mg/dL (40-59); LDL Cholesterol,Calculated 71 mg/dL (0-99); Magnesium 2.2 mg/dL (1.6-2.6); Osmolality,Calculated 294 (280-300); Phosphorous 4.3 mg/dL (2.3-4.7); Potassium 3.1 mEq/L (3.5-4.5); Sodium 139 mEq/L (136-145); Total Protein 6.6 g/dL (6.0-8.3); Triglycerides 162 mg/dL (< 150); eGFR For African Americans > 60 (> 60); eGFR For Non-African Americans 50 (> 60)
[2017-08-01] MEDS: Insulin LISPRO 300 UNITS/3 ML VIAL SQ SCH ×3 (08:30→18:48)
--- NOTE | 2017-08-01 10:07 | Electrocardiograph Report ---
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
[2017-08-01] MEDS: Tiotropium 18 MCG inhalation IH SCH (11:22)
[2017-08-01] MEDS: Aspirin Enteric Coated 81 MG Tablet PO SCH (11:36)
[2017-08-01] MEDS: Pregabalin 50 MG CAPSULE PO SCH ×2 (11:36→21:24)
[2017-08-01] MEDS: Cholecalciferol (D-3) 1,000 UNIT TABLET PO SCH ×2 (11:36→21:24)
[2017-08-01] MEDS: Isosorbide MONOnitrate (24 HR) 60 MG TAB.ER.24H PO SCH (11:36)
[2017-08-01] MEDS: Bumetanide 1 MG TABLET PO SCH ×2 (11:36→21:24)
[2017-08-01] MEDS: Pantoprazole 40 MG VIAL IVP SCH (11:37)
[2017-08-01] MEDS: Topiramate 25 MG TABLET PO SCH ×2 (11:37→21:24)
[2017-08-01] MEDS: APIXABAN 5 MG TABLET PO SCH ×2 (11:37→21:24)
[2017-08-01] MEDS: Nicotine 21 MG PATCH.TD24 TD SCH (11:37)
[2017-08-01] MEDS: Fluticasone Propionate Nasal 50 MCG/SPRAY BOTTLE NS SCH (11:37)
--- NOTE | 2017-08-01 16:56 | Internal Med Progress Note ---
<Jarod Olivo - Last Filed: 08/01/17 16:53> Date of Encounter: 08/01/17 Time of Encounter: 08:00 - Assessment and plan (1) Chest pain of uncertain etiology Current Visit: Yes Status: Acute Assessment and plan: Unclear etiolgy likely not caridac. Patient's ECHO showed: "Impressions: LVEF 60-65%. Normal LV chamber size and function. Mild concentric left ventricular hypertrophy. Mild left ventricular diastolic dysfunction. Normal right ventricular structure and function. Mild to moderate pulmonary hypertension. Estimated RVSP is 47 mmHg. No significant valvular dysfunction." This is basically unchanged from her ECHO in february. Stress test was performed earlier this year and was negative so cardiology did not perform one again. Troponin's have all been negative. Lipid panel was good LDL 71, total 132 Cardiology feels patient is safe to go home tomorrow. (2) Congestive heart failure Current Visit: No Status: Acute Assessment and plan: BNP 188 Echo unchanged from prior continue home diuretics Qualifiers: Congestive heart failure type: diastolic Congestive heart failure chronicity: acute on chronic Qualified Code(s): I50.33 - Acute on chronic diastolic (congestive) heart failure (3) Atrial fibrillation Current Visit: No Status: Chronic Assessment and plan: Pt with hx of a fib. Continue home lopressor and eliquis Qualifiers: Atrial fibrillation type: paroxysmal Qualified Code(s): I48.0 - Paroxysmal atrial fibrillation (4) CKD (chronic kidney disease) Current Visit: Yes Status: Suspected Assessment and plan: Patient developing CKD. Cr has been elevated last several visits. Likely 2/2 to long standing poorly controlled DM Will have patient follow up with nephrology as an outpatient. continue to monitor. Qualifiers: Chronic kidney disease stage: unspecified stage Qualified Code(s): N18.9 - Chronic kidney disease, unspecified (5) Insulin dependent diabetes mellitus Current Visit: No Status: Chronic Assessment and plan: Chronic, poorly controlled. Patient's A1C is 12.2 continue insulin regimen - Subjective Interval history: Patient reports being sleepy this morning. She denies chest pain, SOB above baseline, abd pain, N, V, D. She has no complaints at this time. She got her Echo this morning but stress test was cancelled since she had one earlier this year. - Constitutional Vitals: Temp Pulse Resp BP Pulse Ox 97.7 F 76 18 115/76 93 09/20/17 15:49 08/01/17 15:49 08/01/17 15:49 08/01/17 15:49 08/01/17 15:49 General appearance: Present: no acute distress, obese, answers questions appropriately - Head Head exam: Present: atraumatic, normocephalic - Eye Eye exam: Present: conjuntiva pink, sclera anicteric - Neck Neck exam general surgery: Present: supple, trachea midline - Respiratory Respiratory exam: Present: decreased breath sounds, CTAB. Absent: accessory muscle use, rales, rhonchi, wheezes - Cardiovascular Cardiovascular exam: Present: RRR, +S1, +S2. Absent: diastolic murmur, gallop, rubs, systolic murmur - GI/Abdominal GI/Abdominal exam: Present: normal bowel sounds, soft, no peritoneal signs. Absent: distended, tenderness - Extremities Exam Extremities exam: Present: pedal edema (trace), warm. Absent: calf tenderness, cyanotic - Neurological Exam Neurological exam: Present: alert (sleepy but able to hold conversation). Absent: facial droop, speech deficit - Skin Skin exam: Present: dry, intact Internal Medicine: Result - Labs CBC & Chem 7: 08/01/17 04:38 08/01/17 01:53 Labs: Short CBC 08/01/17 Range/Units 04:38 WBC 9.0 (4.3-11.1) K/mcL Hgb 16.5 H (11.5-15.4) g/dL Hct 53.8 H (35.3-44.9) % Plt Count 210 (140-400) K/mcL Neutrophils # 6.3 (1.6-8.9) K/mcL BMP 08/01/17 01:53 Sodium 139 Potassium 3.1 L Chloride 97 L Carbon Dioxide 32 H BUN 31 H Creatinine 1.13 H Glucose 87 Calcium 9.1 Cardiac Enzymes 08/01/17 08/01/17 Range/Units 04:38 08:49 Troponin I 0.01 0.01 (0-0.03) ng/mL Liver Function 08/01/17 Range/Units 01:53 Total Bilirubin 0.8 (0.2-1.2) mg/dL AST 14 (5-34) Units/L ALT 9 (0-55) Units/L Alkaline Phosphatase 110 (38-126) Units/L Albumin 2.8 L (3.5-5.0) g/dL - ABG Interpretation ABG results: PT/INR, D-dimer PT 14.1 Seconds (9.4-12.1) H 07/31/17 19:51 - Impressions Impressions Echocardiogram 08/01/17 00:34 Impressions: LVEF 60-65%. Normal LV chamber size and function. Mild concentric left ventricular hypertrophy. Mild left ventricular diastolic dysfunction. Normal right ventricular structure and function. Mild to moderate pulmonary hypertension. Estimated RVSP is 47 mmHg. No significant valvular dysfunction. Left Ventricular Wall Motion: Rest Echo Findings All wall segments showed normal motion. Findings: Study Quality * Technically adequate exam. ECG Findings * Normal sinus rhythm. Left Ventricle * LVEF 60-65%. * Normal LV chamber size and function. * Mild concentric left ventricular hypertrophy. * Mild left ventricular diastolic dysfunction. Right Ventricle * Normal right ventricular structure and function. Left Atrium * Mild to moderately dilated left atrium. Right Atrium * Mildly dilated right atrium. Interatrial Septum * No evidence of PFO by color Doppler. Aortic Valve * Trileaflet aortic valve with normal function. * No aortic regurgitation. * No aortic stenosis. Mitral Valve * Normal mitral valve structure and function. * No mitral regurgitation. * No mitral stenosis. Tricuspid Valve * Normal tricuspid valve structure and function. * Trace tricuspid regurgitation. * Mild to moderate pulmonary hypertension. * Estimated RVSP is 47 mmHg. * Estimated RA pressure is 5 mmHg. Pulmonic Valve * Normal pulmonic valve structure and function. Aorta * Normally sized aortic root. Pericardium * The pericardium appears normal. IVC * Normal IVC dimensions and inspiratory collapse. Pulmonary Artery * Normal visualized portions of the main pulmonary artery. Consult Discharge Plan - Plan Referrals: Iliana Almaguer MD [Primary Care Provider] - <Edwardo Minor P - Last Filed: 08/01/17 17:54> Date of Encounter: 08/01/17 - Constitutional Vitals: Temp Pulse Resp BP Pulse Ox 97.7 F 76 18 115/76 93 08/01/17 15:49 08/01/17 15:49 08/01/17 15:49 08/01/17 15:49 08/01/17 15:49 Internal Medicine: Result - Labs CBC & Chem 7: 08/01/17 04:38 08/01/17 01:53 Labs: Short CBC 08/01/17 Range/Units 04:38 WBC 9.0 (4.3-11.1) K/mcL Hgb 16.5 H (11.5-15.4) g/dL Hct 53.8 H (35.3-44.9) % Plt Count 210 (140-400) K/mcL Neutrophils # 6.3 (1.6-8.9) K/mcL BMP 08/01/17 01:53 Sodium 139 Potassium 3.1 L Chloride 97 L Carbon Dioxide 32 H BUN 31 H Creatinine 1.13 H Glucose 87 Calcium 9.1 Cardiac Enzymes 08/01/17 08/01/17 Range/Units 04:38 08:49 Troponin I 0.01 0.01 (0-0.03) ng/mL Liver Function 08/01/17 Range/Units 01:53 Total Bilirubin 0.8 (0.2-1.2) mg/dL AST 14 (5-34) Units/L ALT 9 (0-55) Units/L Alkaline Phosphatase 110 (38-126) Units/L Albumin 2.8 L (3.5-5.0) g/dL - ABG Interpretation ABG results: PT/INR, D-dimer PT 14.1 Seconds (9.4-12.1) H 07/31/17 19:51 - Impressions Impressions Echocardiogram 08/01/17 00:34 Impressions: LVEF 60-65%. Normal LV chamber size and function. Mild concentric left ventricular hypertrophy. Mild left ventricular diastolic dysfunction. Normal right ventricular structure and function. Mild to moderate pulmonary hypertension. Estimated RVSP is 47 mmHg. No significant valvular dysfunction. Left Ventricular Wall Motion: Rest Echo Findings All wall segments showed normal motion. Findings: Study Quality * Technically adequate exam. ECG Findings * Normal sinus rhythm. Left Ventricle * LVEF 60-65%. * Normal LV chamber size and function. * Mild concentric left ventricular hypertrophy. * Mild left ventricular diastolic dysfunction. Right Ventricle * Normal right ventricular structure and function. Left Atrium * Mild to moderately dilated left atrium. Right Atrium * Mildly dilated right atrium. Interatrial Septum * No evidence of PFO by color Doppler. Aortic Valve * Trileaflet aortic valve with normal function. * No aortic regurgitation. * No aortic stenosis. Mitral Valve * Normal mitral valve structure and function. * No mitral regurgitation. * No mitral stenosis. Tricuspid Valve * Normal tricuspid valve structure and function. * Trace tricuspid regurgitation. * Mild to moderate pulmonary hypertension. * Estimated RVSP is 47 mmHg. * Estimated RA pressure is 5 mmHg. Pulmonic Valve * Normal pulmonic valve structure and function. Aorta * Normally sized aortic root. Pericardium * The pericardium appears normal. IVC * Normal IVC dimensions and inspiratory collapse. Pulmonary Artery * Normal visualized portions of the main pulmonary artery. - Attending Attestation I examined this patient and my medical decision-making was reviewed with the Resident Physician. I agree with the documented findings, disposition and treatment plan as described except to the extent set forth below.
[2017-08-01] MEDS ORDERED: Insulin LISPRO 300 UNITS/3 ML VIAL SQ SCH (21:00)
[2017-08-02] MEDS: Albuterol 2.5 MG/3 ML NEBULIZER IH SCH ×2 (03:36→08:05)
[2017-08-02 06:13] LABS: BUN/Creatinine Ratio 24 (6-26); Blood Urea Nitrogen 27 mg/dL (7-20); Calcium 9.1 mg/dL (8.6-10.8); Carbon Dioxide 28 mEq/L (19-29); Chloride 99 mEq/L (98-109); Glucose 259 mg/dL (70-99); Osmolality,Calculated 294 (280-300); Sodium 135 mEq/L (136-145); eGFR For African Americans > 60 (> 60); eGFR For Non-African Americans 51 (> 60)
--- NOTE | 2017-08-02 07:15 | Discharge Summary ---
<Jarod Olivo - Last Filed: 08/02/17 11:11> Date of Encounter: 08/02/17 Time of Encounter: 08:15 - Discharge Diagnosis (1) Chest pain of uncertain etiology Priority: Primary Status: Acute (2) Congestive heart failure Priority: Secondary Status: Acute Qualifiers: Congestive heart failure type: diastolic Congestive heart failure chronicity: acute on chronic Qualified Code(s): I50.33 - Acute on chronic diastolic (congestive) heart failure (3) Atrial fibrillation Priority: Secondary Status: Chronic Qualifiers: Atrial fibrillation type: paroxysmal Qualified Code(s): I48.0 - Paroxysmal atrial fibrillation (4) CKD (chronic kidney disease) Priority: Secondary Status: Suspected Qualifiers: Chronic kidney disease stage: unspecified stage Qualified Code(s): N18.9 - Chronic kidney disease, unspecified (5) Insulin dependent diabetes mellitus Priority: Secondary Status: Chronic - Discharge Medications Home Medications: Atorvastatin Calcium [Lipitor] 80 mg PO DAILY 06/30/15 [History] Montelukast [Singulair] 10 mg PO HS 06/30/15 [History] Pregabalin [Lyrica] 100 mg PO BID 06/30/15 [History] Tiotropium [Spiriva] 1 cap IH DAILY 06/30/15 [History] Citalopram [CeleXA] 20 mg PO DAILY 08/09/15 [History] Albuterol Neb [Proventil Neb] 2.5 mg IH Q6H PRN 04/17/16 [History] Albuterol Sulfate [Albuterol Inhaler] 2 puff IH Q4H PRN 04/17/16 [History] Oxygen 4 l NS AD 04/17/16 [History] Pantoprazole Sodium [Protonix] 40 mg PO DAILY 04/17/16 [History] Insulin ASPART [Novolog Flexpen] 0 unit SQ DAILY 02/13/17 [History] Nitroglycerin [Nitrostat] 0.4 mg SL Q5M PRN 02/13/17 [History] Aspirin Enteric Coated [Aspirin EC] 81 mg PO DAILY tablet. 02/15/17 [Rx] Cholecalciferol (D-3) [Vitamin D] 5,000 unit PO BID 02/27/17 [History] Fluticasone Propionate Nasal [Flonase] 100 mcg NS DAILY 02/27/17 [History] Isosorbide MONOnitrate [Isosorbide Mononitrate ER] 120 mg PO DAILY 02/27/17 [ History] Apixaban [Eliquis] 5 mg PO BID #60 tablet 03/01/17 [Rx] Ranitidine HCl [Zantac] 150 mg PO BID 06/15/17 [History] metOLazone [Zaroxolyn] 2.5 mg PO SUWE 06/15/17 [History] Acetaminophen [Tylenol Arthritis] 650 mg PO Q8H PRN #0 06/17/17 [Rx] Nicotine Patch [Nicoderm] 21 mg TD DAILY #30 06/17/17 [Rx] Tramadol HCl [Ultram] 50 mg PO BID PRN #10 tab 06/17/17 [Rx] Bumetanide [Bumex] 2 mg PO BID 07/31/17 [History] SUMAtriptan succinate [Imitrex] 50 mg PO DAILY PRN 07/31/17 [History] Topiramate 50 mg PO BID 07/31/17 [History] Allergies/Adverse Reactions: 3 Allergy/AdvReac Type Severity Reaction Status Date / Time amylase [From Creon] AdvReac Diarrhea Verified 02/13/17 07:44 estrogens, conjugated AdvReac Anxiety Verified 02/13/17 07:44 [From Premarin] hydrocodone [From Vicodin] AdvReac Anxiety Verified 02/13/17 07:44 lipase [From Creon] AdvReac Diarrhea Verified 02/13/17 07:44 metronidazole [From Flagyl] AdvReac See Verified 02/13/17 07:44 Comments protease [From Creon] AdvReac Diarrhea Verified 02/13/17 07:44 Tetracycline AdvReac Anxiety Verified 02/13/17 07:44 tramadol [From Ultram] AdvReac Muscle Pain Verified 02/13/17 07:44 Procedures/tests Complete & Pending: Procedures Performed prior 72 hours Category Date Time Status ECG 12 lead ECG [ECG] AM 0600 Y 08/01/17 06:00 Ordered EV echocardiogram Routine Y 08/01/17 00:34 Completed CXR: FINDINGS: The cardiac silhouette is stable. Mild coarsening of the interstitial markings without significant interval change. No focal infiltrate or significant pleural fluid is seen. Blunting of the right lateral costophrenic sulcus is unchanged. XR/XR chest 1V portable IMPRESSION: Coarsening of the interstitial markings, likely chronic and stable. No acute cardiopulmonary disease. ECHO: "Impressions: LVEF 60-65%. Normal LV chamber size and function. Mild concentric left ventricular hypertrophy. Mild left ventricular diastolic dysfunction. Normal right ventricular structure and function. Mild to moderate pulmonary hypertension. Estimated RVSP is 47 mmHg. No significant valvular dysfunction." Date of admission: 07/31/17 21:17 Primary care physician: Iliana Almaguer MD Discharging clinician: Jarod Olivo Anticipated date of discharge: 08/02/17 - Patient Status Disposition: Home, Self-Care Condition: Good Functional capacity at discharge: independent ambulation Overall status at discharge: patient is progressing back to baseline - Discharge Instructions Instructions: Chest Pain (DC) Follow Up With: Iliana Almaguer MD [Primary Care Provider] - 08/14/17 10:00 am Additional Instructions: Please follow up with your primary care provider within 1 week. Please resume all your home medications as prescribed except your blood pressure medications Cozaar(Losartan) and Lopressor(Metoprolol) Hold off on taking these until you see your primary care provider and talk to them. Your blood pressure was on the low side in the hospital. Please return to the hospital if you experience any new or worsening symptoms. - Diet and Activity Activity: resume usual activities as tolerated Diet: diabetic diet, other (cardiac diet) Interval History: Patient reports feeling well. She denies chest pain, SOB, N, V, D, abd pain. She is eager to go home. Hospital course: Ms. Alanis is a 52 year old female c PMHx of heart failure with preserved ejection fraction, atrial fibrillation, arthritis, asthma, CHF, COPD, diabetes, hyperlipidemia, hypertension, kidney stones, and depression reports to the Hospital complaining of episodic, substrernal Chest pain x 5 days. She had a work up with Echo and stress test earlier this year. We repeated cardiac enzymes , EKG, CXR, and ECHO all of which were unremarkable. patient chest pain resolved and she was discharged home. - Time Spent with Patient Total time spent providing and/or coordinating discharge services: 40 minutes - Constitutional Vitals: Temp Pulse Resp BP Pulse Ox 97.5 F L 62 16 146/80 98 08/02/17 04:22 08/02/17 04:22 08/02/17 04:22 08/02/17 04:22 08/02/17 04:22 General appearance: Present: A&O X 3, no acute distress, obese, answers questions appropriately - Head Head exam: Present: atraumatic, normocephalic - Eye Eye exam: Present: PERRL, conjuntiva pink, sclera anicteric Pupils: Present: PERRL - Neck Neck exam general surgery: Present: supple, trachea midline - Respiratory Respiratory exam: Present: decreased breath sounds, CTAB. Absent: accessory muscle use, rales, rhonchi, wheezes - Cardiovascular Cardiovascular exam: Present: RRR, +S1, +S2. Absent: diastolic murmur, gallop, rubs, systolic murmur - GI/Abdominal GI/Abdominal exam: Present: normal bowel sounds, soft, no peritoneal signs. Absent: distended, tenderness - Extremities Exam Extremities exam: Present: warm. Absent: calf tenderness, cyanotic, pedal edema - Neurological Exam Neurological exam: Present: alert, oriented X3, no focal deficits. Absent: facial droop, speech deficit - Skin Skin exam: Present: dry, intact <Mily,Edwardo P - Last Filed: 08/02/17 18:06> Date of Encounter: 08/02/17 Procedures/tests Complete & Pending: Procedures Performed prior 72 hours Category Date Time Status ECG 12 lead ECG [ECG] AM 0600 Y 08/01/17 06:00 Ordered EV echocardiogram Routine Y 08/01/17 00:34 Completed Date of admission: 07/31/17 21:17 Primary care physician: Iliana Almaguer MD Hospital course: Ms. Alanis is a 52 year old female - Time Spent with Patient Total time spent providing and/or coordinating discharge services: - Constitutional Vitals: Temp Pulse Resp BP Pulse Ox 98.5 F 61 15 120/77 96 08/02/17 07:56 08/02/17 07:56 08/02/17 07:56 08/02/17 07:56 08/02/17 07:56 - Attending Attestation I examined this patient and my medical decision-making was reviewed with the Resident Physician. I agree with the documented findings, disposition and treatment plan as described except to the extent set forth below.
[2017-08-02 07:57] VITALS: BP 120/77
[2017-08-02] MEDS: Tiotropium 18 MCG inhalation IH SCH (08:05)
[2017-08-02] MEDS: Insulin LISPRO 300 UNITS/3 ML VIAL SQ SCH ×2 (08:28→11:32)
[2017-08-02] MEDS: Nicotine 21 MG PATCH.TD24 TD SCH (08:30)
[2017-08-02] MEDS: Bumetanide 1 MG TABLET PO SCH (08:31)
[2017-08-02] MEDS: Aspirin Enteric Coated 81 MG Tablet PO SCH (08:31)
[2017-08-02] MEDS: APIXABAN 5 MG TABLET PO SCH (08:32)
[2017-08-02] MEDS: Fluticasone Propionate Nasal 50 MCG/SPRAY BOTTLE NS SCH (08:32)
[2017-08-02] MEDS: Isosorbide MONOnitrate (24 HR) 60 MG TAB.ER.24H PO SCH (08:33)
[2017-08-02] MEDS: Pregabalin 50 MG CAPSULE PO SCH (08:33)
[2017-08-02] MEDS: Topiramate 25 MG TABLET PO SCH (08:33)
[2017-08-02] MEDS: Cholecalciferol (D-3) 1,000 UNIT TABLET PO SCH (08:34)
[2017-08-02] MEDS: Pantoprazole 40 MG VIAL IVP SCH (08:34)
== END 2017-08-02 12:31 | disposition home or self-care (01) ==
LOC: 3BNU 17:31 → EMEROO 17:31 → 3BNU 22:17
PROVIDERS: ADMIT Internal Medicine; ATTEND Internal Medicine

== ENCOUNTER 2017-12-18 17:51 | Inpatient (IN) ==
--- NOTE | 2017-12-18 18:05 | Emergency Department Note ---
Disposition Clinical Impression: Beta airam toxicity, Near syncope, Multiple falls, Gait instability, Acute electrocardiogram changes Hypotension Qualifiers: Hypotension type: unspecified hypotension type Qualified Code(s): I95.9 - Hypotension, unspecified Disposition: Admitted As Inpatient Condition: Fair Time of Disposition: 22:00 General Adult HPI - General Chief complaint: ED General Medical Stated complaint: "generally doesnt feel well" Time Seen by Provider: 12/18/17 17:56 Source: patient Mode of arrival: ambulatory Limitations: no limitations Nursing Notes Reviewed: Yes Vital Signs Reviewed: Yes - History of Present Illness HPI Narrative: 82-year-old female with A. fib, CAD, COPD on 2 L of oxygen, presents complaining of shortness of breath, multiple falls, patient states that she had been diagnosed with COPD last week, she is placed on Levaquin but has been having trouble since taking the medication, she describes shortness of breath, her primary care physician Dr. Almaguer states that she was having multiple complaints of feeling faint and dizzy. Patient is on metoprolol as well as Imdur for blood pressure control. Patient denies fever, chills, hemoptysis, leg swelling. She did hit her head and has a Mike and headache that she describes as frontal, she is unsure if she lost consciousness when she fell. She states that she has fallen multiple times. Pt Subjective Complaint: Falls Onset (ago): minute(s) Pain Severity: mild Pain Scale: 2 Quality: aching Consistency: constant Improves with: nothing Worsens with: nothing Associated symptoms: Denies: confusion Treatments Prior to Arrival: none - Related Data Home Medications Medication Instructions Recorded Confirmed Montelukast [Singulair] 10 mg PO HS 06/30/15 07/31/17 Pregabalin [Lyrica] 100 mg PO BID 06/30/15 07/31/17 Tiotropium [Spiriva] 1 cap IH DAILY 06/30/15 07/31/17 Citalopram [CeleXA] 20 mg PO DAILY 08/09/15 07/31/17 Albuterol Neb [Proventil Neb] 2.5 mg IH Q6H PRN 04/17/16 07/31/17 Albuterol Sulfate [Albuterol 2 puff IH Q4H PRN 04/17/16 07/31/17 Inhaler] Oxygen 4 l NS AD 04/17/16 07/31/17 Pantoprazole Sodium [Protonix] 40 mg PO DAILY 04/17/16 07/31/17 Insulin ASPART [Novolog Flexpen] 0 unit SQ DAILY 02/13/17 07/31/17 Nitroglycerin [Nitrostat] 0.4 mg SL Q5M PRN 02/13/17 07/31/17 Isosorbide MONOnitrate [Isosorbide 120 mg PO DAILY 02/27/17 07/31/17 Mononitrate ER] Ranitidine HCl [Zantac] 150 mg PO BID 06/15/17 07/31/17 metOLazone [Zaroxolyn] 2.5 mg PO SUWE 06/15/17 07/31/17 Bumetanide [Bumex] 2 mg PO BID 07/31/17 07/31/17 SUMAtriptan succinate [Imitrex] 50 mg PO DAILY PRN 07/31/17 07/31/17 Topiramate 50 mg PO BID 07/31/17 07/31/17 Atorvastatin [Lipitor] 40 mg PO HS 12/18/17 12/18/17 Budesonide/Formoterol 160/4.5 2 puff IH BID 12/18/17 12/18/17 [Symbicort 160/4.5] Ipratropium/Albuterol Neb [Duoneb] 3 ml IH Q6HR 12/18/17 12/18/17 Loperamide HCl [Anti-Diarrheal] 2 mg PO PER PKG DI PRN 12/18/17 12/18/17 Loratadine [Claritin] 10 mg PO DAILY 12/18/17 12/18/17 Metoprolol [Lopressor] 25 mg PO BID 12/18/17 12/18/17 Nystatin [Nystatin Suspension] 500,000 unit PO QID 12/18/17 12/18/17 Ondansetron [Zofran ODT] 8 mg SL Q8H PRN 12/18/17 12/18/17 Potassium Chloride [K-Tab ER] 20 meq PO DAILY 12/18/17 12/18/17 Umeclidinium [place] [Incruse 62.5 mcg IH DAILY 12/18/17 12/18/17 Ellipta] Previous Rx's Medication Instructions Recorded Aspirin Enteric Coated [Aspirin EC] 81 mg PO DAILY tablet. 02/15/17 Apixaban [Eliquis] 5 mg PO BID #60 tablet 03/01/17 Acetaminophen [Tylenol Arthritis] 650 mg PO Q8H PRN #0 06/17/17 Allergies Allergy/AdvReac Type Severity Reaction Status Date / Time amylase [From Creon] AdvReac Diarrhea Verified 02/13/17 07:44 estrogens, conjugated AdvReac Anxiety Verified 02/13/17 07:44 [From Premarin] hydrocodone [From Vicodin] AdvReac Anxiety Verified 02/13/17 07:44 lipase [From Creon] AdvReac Diarrhea Verified 02/13/17 07:44 metronidazole [From Flagyl] AdvReac See Verified 02/13/17 07:44 Comments protease [From Creon] AdvReac Diarrhea Verified 02/13/17 07:44 Tetracycline AdvReac Anxiety Verified 02/13/17 07:44 tramadol [From Ultram] AdvReac Muscle Pain Verified 02/13/17 07:44 All systems ED: reviewed and negative except as stated. Review of Systems: As Per HPI Constitutional: Reports: as per HPI, weakness. Denies: fever, chills Eyes: Denies: eye pain ENT ED: Denies: ear pain Cardiovascular: Denies: chest pain, palpitations Respiratory: Denies: cough, dyspnea Gastrointestinal: Denies: abdominal pain, nausea Genitourinary: Denies: urgency Musculoskeletal: Denies: back pain, neck pain Integumentary: Denies: rash Neurological: Denies: headache Psychiatric: Denies: anxiety Endocrine: Denies: fatigue Hematological/Lymphatic: Denies: easy bleeding Past Medical History - Past Medical History Attestation: Yes The following information was validated with the patient. 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 Absent: respiratory distress - Cardiovascular Cardiovascular exam: Present: regular rate - Abdominal Exam Abdominal exam: Present: soft, Non-Tender - Extremities Exam Extremities exam: Present: normal inspection, full ROM - Neurological Exam Neurological exam: Present: alert, oriented X3, CN II-XII intact - Psychiatric Psychiatric exam: Present: normal affect Course Course Narrative: 52-year-old female presents complaining of weakness, shortness of breath, sent by her PCP due to multiple falls, her blood pressure is low, she hypotense 94/50 , on initial vitals, patient is on metoprolol, as well as Imdur concern for possible medication reaction versus possible sepsis as the patient recently had a COPD exacerbation and possible bronchitis, she denies any chest pain at this time but her EKG does show some inferior ST segment changes of ischemia, given concern for syncope likely patient will need to be admitted. - Reevaluation(s) Reevaluation #1: After evaluation, the patient was unresponsive to a 30 mL/kg bolus of normal saline which was 2700 L, the patient does have heart failure but she has diastolic heart failure with an EF of 60-65%, I think secondary to dehydration the patient is possibly getting too much beta blockade, she is hypotensive and bradycardic in the 50s, I think that giving her calcium gluconate 2 g will possibly an improve her symptoms, the patient has been unresponsive to fluid resuscitation and I do not think that she warrants any further aggressive antibiotic management for sepsis plan is for admission for hypotension, beta airam overdose, unintentional, possible symptomatic hypotension and near syncope. I spoke with the hospitalist Dr. Cole for admission and he accepted the patient Time: 21:59 Vital Signs Temperature 97.8 F 12/18/17 17:55 Pulse Rate 51 12/18/17 17:55 Respiratory Rate 18 12/18/17 17:55 Blood Pressure 81/53 12/18/17 17:55 O2 Sat by Pulse Oximetry 95 12/18/17 17:55 Temperature 97.7 F 12/18/17 21:39 Pulse Rate 55 12/18/17 21:39 Respiratory Rate 16 12/18/17 21:39 Blood Pressure 100/64 12/18/17 21:39 O2 Sat by Pulse Oximetry 94 12/18/17 21:39 Oxygen Delivery Oxygen Delivery Room Air Medical Decision Making - MDM Narrative Medical decision making narrative: This documentation is done with the assistance of Dragon dictation. There may be inaccuracies in mortgage analyst or spelling and typographical errors. I examined this patient and my medical decision-making was reviewed with the Resident Physician. I agree with the documented findings, disposition and treatment plan as described except to the extent set forth below. Patient seen and evaluated today by Dr. Frost and myself, greater than evaluation and management plan, supervised care of the patient's stay. Patient comes in today with not feeling well. She has had a low blood pressure coming from her primary care office. She was recently seen for COPD exacerbation the question is whether she could be septic or have pneumonia. She does meet SIRS criteria. We will give her fluids and start her on antibiotics if she has a source. Chest X-Ray 12/18/17 17:58 IMPRESSION: Stable chronic pleural-parenchymal changes. No acute cardiopulmonary process demonstrated D/ / Spencer Pollack MD / Spencer Pollack MD Interpreting Provider: Spencer Pollack MD 2100 hrs.: Patient's a history of multiple falls with this. Her blood pressure has not changed a whole lot. She is on a beta airam with her bradycardia and her hypotension I wonder if she could have taken too much of this not as intentional overdose just because she is on extra dose. She did get 3 L of fluids here. She is getting some calcium to see if that will help counteract any affective a beta airam. Heart in a bring her into the hospital impression #1 is hypertension with bradycardia and syncope. With falls. Patient's admitted at this time. Her critical care time excluding separately billable procedures is 45 minutes. - Medical Records Medical records reviewed: Yes I reviewed the patient's medical records. - Lab Data Lab results reviewed: Yes I reviewed the patient's lab results. Result diagrams: 12/18/17 18:54 12/18/17 18:54 Lab Results 12/18/17 12/18/17 12/18/17 Range/Units 18:54 18:54 18:54 WBC 7.6 (4.3-11.1) K/mcL RBC 7.07 H (3.82-4.97) M/mcL Hgb 16.8 H (11.5-15.4) g/dL Hct 53.3 H (35.3-44.9) % MCV 75.4 L (83.0-100.0) fL MCH 23.8 L (28.0-33.3) pg MCHC 31.5 L (31.6-35.5) g/dL RDW 23.4 H (11.5-14.5) % Plt Count 181 (140-400) K/mcL MPV TNP Immature Gran % 0.5 (0-4) % Seg Neutrophils % 71.9 % Lymphocytes % 16.4 % Monocytes % 9.6 % Eosinophils % 1.2 % Basophils % 0.4 % Neutrophils # 5.5 (1.6-8.9) K/mcL Lymphocytes # 1.3 (0.6-4.6) K/mcL Monocytes # 0.7 (0.0-1.3) K/mcL Eosinophils # 0.1 (0.0-0.6) K/mcL Basophils # 0.0 (0.0-0.2) K/mcL Platelet Estimate Normal (Normal) Immature Plt Fraction 8.5 H (1.1-6.1) % Hypochromasia Present A (Not Present) Anisocytosis 3+ A (Not Present) PT (9.4-12.1) Seconds INR APTT (26.0-36.0) Seconds D-Dimer (0-500) ng/mLFEU Sodium 134 L (136-145) mEq/L Potassium 3.1 L (3.5-5.1) mEq/L Chloride 97 L (98-107) mEq/L Carbon Dioxide 32 H (23-29) mEq/L BUN 40 H (6-20) mg/dL Creatinine 1.37 H (0.60-1.20) mg/dL Est GFR ( Amer) 49 L (> 60) Est GFR (Non-Af Amer) 40 L (> 60) BUN/Creatinine Ratio 29 H (6-26) Glucose 201 H (70-105) mg/dL Calculated Osmolality 293 (280-300) Lactic Acid 1.5 (0.5-2.2) mmol/L Calcium 8.3 L (8.6-10.3) mg/dL Phosphorus 3.4 (2.7-4.5) mg/dL Magnesium 2.2 (1.6-2.6) mg/dL Total Bilirubin 0.5 (0.3-1.0) mg/dL AST 25 (13-39) Units/L ALT 14 (7-52) Units/L Alkaline Phosphatase 87 (34-104) Units/L Troponin I (< 0.04) ng/mL Serum Total Protein 5.7 L (6.4-8.9) g/dL Albumin 3.2 L (3.5-5.7) g/dL Globulin 2.5 (2.4-3.5) g/dL Albumin/Globulin Ratio 1.3 (1.1-2.2) TSH 0.250 L (0.340-5.600) mcIU/mL Urine Color (Yellow) Urine Clarity (Clear) Urine pH (5.0-8.0) pH Units Ur Specific [place] (1.010-1.025) Urine Protein (Neg-Trace) mg/dL Urine Glucose (UA) (Normal) mg/dL Urine Ketones (Negative) mg/dL Urine Blood (Negative) Urine Nitrite (Negative) Urine Bilirubin (Negative) Urine Urobilinogen (Normal) mg/dL Ur Leukocyte Esterase (Negative) Ur Culture Indicated? (NO) 12/18/17 12/18/17 12/18/17 Range/Units 18:54 18:54 20:30 WBC (4.3-11.1) K/mcL RBC (3.82-4.97) M/mcL Hgb (11.5-15.4) g/dL Hct (35.3-44.9) % MCV (83.0-100.0) fL MCH (28.0-33.3) pg MCHC (31.6-35.5) g/dL RDW (11.5-14.5) % Plt Count (140-400) K/mcL MPV Immature Gran % (0-4) % Seg Neutrophils % % Lymphocytes % % Monocytes % % Eosinophils % % Basophils % % Neutrophils # (1.6-8.9) K/mcL Lymphocytes # (0.6-4.6) K/mcL Monocytes # (0.0-1.3) K/mcL Eosinophils # (0.0-0.6) K/mcL Basophils # (0.0-0.2) K/mcL Platelet Estimate (Normal) Immature Plt Fraction (1.1-6.1) % Hypochromasia (Not Present) Anisocytosis (Not Present) PT 15.4 H (9.4-12.1) Seconds INR 1.4 APTT 34.0 (26.0-36.0) Seconds D-Dimer 295 (0-500) ng/mLFEU Sodium (136-145) mEq/L Potassium (3.5-5.1) mEq/L Chloride (98-107) mEq/L Carbon Dioxide (23-29) mEq/L BUN (6-20) mg/dL Creatinine (0.60-1.20) mg/dL Est GFR ( Amer) (> 60) Est GFR (Non-Af Amer) (> 60) BUN/Creatinine Ratio (6-26) Glucose (70-105) mg/dL Calculated Osmolality (280-300) Lactic Acid (0.5-2.2) mmol/L Calcium (8.6-10.3) mg/dL Phosphorus (2.7-4.5) mg/dL Magnesium (1.6-2.6) mg/dL Total Bilirubin (0.3-1.0) mg/dL AST (13-39) Units/L ALT (7-52) Units/L Alkaline Phosphatase (34-104) Units/L Troponin I < 0.03 (< 0.04) ng/mL Serum Total Protein (6.4-8.9) g/dL Albumin (3.5-5.7) g/dL Globulin (2.4-3.5) g/dL Albumin/Globulin Ratio (1.1-2.2) TSH (0.340-5.600) mcIU/mL Urine Color Yellow (Yellow) Urine Clarity Clear (Clear) Urine pH 7.5 (5.0-8.0) pH Units Ur Specific [place] 1.019 (1.010-1.025) Urine Protein Negative (Neg-Trace) mg/dL Urine Glucose (UA) Normal (Normal) mg/dL Urine Ketones Negative (Negative) mg/dL Urine Blood Negative (Negative) Urine Nitrite Negative (Negative) Urine Bilirubin Negative (Negative) Urine Urobilinogen Normal (Normal) mg/dL Ur Leukocyte Esterase Negative (Negative) Ur Culture Indicated? NO (NO) - Radiology Data Radiology results reviewed: Yes I reviewed the patient's radiology results. Chest X-Ray 12/18/17 17:58 IMPRESSION: Stable chronic pleural-parenchymal changes. No acute cardiopulmonary process demonstrated D/ / Spencer Pollack MD / Spencer Pollack MD Interpreting Provider: Spencer Pollack MD Head CT 12/18/17 17:59 IMPRESSION: No acute intracranial abnormality. Stable calcified 1 cm left frontal meningioma without mass effect D/ / Spencer Pollack MD / Spencer Pollack MD Interpreting Provider: Spencer Pollack MD - EKG Data EKG #1 EKG attestation: Yes I reviewed and interpreted this EKG. EKG shows normal: sinus rhythm Rate: normal Rhythm: NSR (52 bpm NE 197 QRS 83 QTC 480 S depressions in lead 3 and aVF, and lateral leads.) [place]/QRS: normal
[2017-12-18] MEDS ORDERED: 0.9 % Sodium Chloride 1,000 ML IVC ONE (18:11)
[2017-12-18] MEDS: 0.9 % Sodium Chloride 1,000 ML IVC ONE ×2 (18:13→20:12)
[2017-12-18 19:10] LABS: INR 1.4; Prothrombin Time 15.4 Seconds (9.4-12.1)
[2017-12-18 19:22] LABS: Eosinophils % 1.2 %
[2017-12-18 19:27] LABS: Basophils % 0.4 %; Eosinophils # 0.1 K/mcL (0.0-0.6); Hematocrit 53.3 % (35.3-44.9); Hemoglobin 16.8 g/dL (11.5-15.4); Immature Granulocytes % 0.5 % (0-4); Immature Platelets 8.5 % (1.1-6.1); Lymphocytes # 1.3 K/mcL (0.6-4.6); Lymphocytes % 16.4 %; Mean Corpuscular HGB Conc 31.5 g/dL (31.6-35.5); Mean Corpuscular Hemoglobin 23.8 pg (28.0-33.3); Mean Corpuscular Volume 75.4 fL (83.0-100.0); Monocytes # 0.7 K/mcL (0.0-1.3); Monocytes % 9.6 %; Neutrophils # 5.5 K/mcL (1.6-8.9); Platelet Count 181 K/mcL (140-400); Red Blood Count 7.07 M/mcL (3.82-4.97); Red Cell Distribution Width 23.4 % (11.5-14.5); Segmented Neutrophils % 71.9 %
[2017-12-18 19:29] LABS: Albumin 3.2 g/dL (3.5-5.7); Albumin/Globulin Ratio 1.3 (1.1-2.2); Bilirubin,Total 0.5 mg/dL (0.3-1.0); Calcium 8.3 mg/dL (8.6-10.3); Globulin 2.5 g/dL (2.4-3.5); Magnesium 2.2 mg/dL (1.6-2.6); Phosphorous 3.4 mg/dL (2.7-4.5); Potassium 3.1 mEq/L (3.5-5.1); Total Protein 5.7 g/dL (6.4-8.9)
[2017-12-18 19:41] LABS: Thyroid Stimulating Hormone 0.25 mcIU/mL (0.340-5.600)
[2017-12-18 19:58] LABS: Anisocytosis 3+ (Not Present); Hypochromasia Present (Not Present); Platelet Estimate Normal (Normal)
[2017-12-18 20:51] LABS: Bilirubin,Urine Negative (Negative); Blood,Urine Negative (Negative); Clarity,Urine Clear (Clear); Color,Urine Yellow (Yellow); Glucose,Urine (UA) Normal (Normal); Ketones,Urine Negative (Negative); Leukocyte Esterase,Urine Negative (Negative); Nitrite,Urine Negative (Negative); PH,Urine 7.5 pH Units (5.0-8.0); Protein,Urine Negative (Neg-Trace); Specific Gravity,Urine 1.019 (1.010-1.025); Urobilinogen,Urine Normal (Normal)
[2017-12-18] MEDS ORDERED: Calcium Gluconate 2,000 MG in D5% in Water 100 ML IVPB ONE (20:53)
[2017-12-18] MEDS ORDERED: MOM Conc 10 ML UD.LIQ PO PRN (23:01)
[2017-12-18] MEDS ORDERED: Naloxone 0.4 MG/ML INJ IVP PRN (23:01)
[2017-12-18] MEDS ORDERED: Ondansetron 4 MG/2 ML VIAL IVP PRN (23:01)
[2017-12-18] MEDS ORDERED: Nitroglycerin 0.4 MG TAB.SUBL SL PRN (23:05)
--- NOTE | 2017-12-18 23:15 | Internal Med History&Physical ---
Date of Encounter: 12/18/17 Time of Encounter: 22:25 Assessment and Plan (1) Near syncope Current visit: Yes Status: Acute Will place the pt into Tele for observation Her syncope could be due to dehydration vs bradycardia will check serial trop to t/o ACS check 2 D Echo, Carotid doppler reviewed 2d Echo from 07/29 showed preserved LVEF So far negative trop PT / OT eval (2) Hypovolemia due to dehydration Current visit: No Status: Acute Her hypotension could be due to dehydration with IV fluids resolved (3) Bradycardia Current visit: Yes Status: Acute Reviewed EKG showed sinus bradycardia with HR 52 Held Metoprolol on tele cont close monitoring will consult Card in AM (4) VANESSA (acute kidney injury) Current visit: No Status: Acute VANESSA with CKD-2 reviewed labs..does have mild pre renal VANESSA Pt already give IV hydration Due to her CHF..will hold on IVF for now check labs in AM (5) Multiple falls Current visit: Yes Status: Acute Syncope vs physical deconditioning PT / OT eval (6) Insulin dependent diabetes mellitus Current visit: No Status: Chronic on ISS + Levemir (7) Hypokalemia Current visit: No Status: Acute replace K + (8) CKD (chronic kidney disease) stage 2, GFR 60-89 ml/min Current visit: Yes Status: Acute (9) Diastolic CHF, chronic Current visit: Yes Status: Acute not in exacerbation gentle hydration only hold BP meds (10) Paroxysmal A-fib Current visit: Yes Status: Acute rate controlled on Eliquis for anti coag Internal Medicine - H&P: HPI Chief complaint: Syncope / frequent falls Admitted From: Emergency Dept Plans for Post Hospital Care: Home History of present illness: Ms. Alanis is a 52 year old female with known paroxysmal A. fib on ELiquis for anti coag, CAD, DM2, HTN, HLD, COPD and chronic hypoxic resp failure on 2 L of oxygen, was sent to ER from PCP office for further evaluation regarding her frequent falls at home. Pt did c/o feeling light headedness and dizzy happened to have to many falls at home. She denied any loss of consciousness, also denied any prodromal symptoms before fall. Patient is on metoprolol as well as Imdur for blood pressure control. Patient denies fever, chills, hemoptysis, leg swelling. She fell on her back today and did hit her head. Her Ct of head did not show any ICH in the ER. She also had severe hypotension and bradycardia. She did received IV fluids now her BP in 120's. Past Med Surg Social Fam HX - Past Medical History Medical history: asthma, atrial fibrillation, CHF, COPD, diabetes, renal disease , other Psychiatric history: anxiety, depression - Past Surgical History Surgical History: cholecystectomy - Social History Smoking Status: Current some day smoker Packs per day: 0.5 Smokeless Tobacco Status: Yes Alcohol use: occasionally Drug use: none - Family History Father Adopted: No Family Member Ethnicity: Non- Living Status: Still Living Hx Family Cardiac Disorders: Yes (CABG x3, HTN) Hx Family Respiratory Disorders: Yes (COPD) Hx Family Cancer: No Hx Family GI Disorders: No Hx Family Endocrine Disorder: Yes Hx Family Neuromuscular Disorders: No Hx Family Neurologic Disorders: No Hx Family HEENT Disorders: No Hx Family Autoimmune Disorders: No Mother Family Member Ethnicity: Non- Living Status: Still Living Hx Family Cardiac Disorders: Yes Hx Family Respiratory Disorders: No Hx Family Cancer: Yes Hx Family GI Disorders: No Hx Family Endocrine Disorder: Yes (DM2) Hx Family Neuromuscular Disorders: No Hx Family Neurologic Disorders: No Hx Family HEENT Disorders: No Hx Family Autoimmune Disorders: No Internal Medicine - H&P: Meds Montelukast [Singulair] 10 mg PO HS 06/30/15 [History] Pregabalin [Lyrica] 100 mg PO TID 06/30/15 [History] Tiotropium [Spiriva] 18 mcg IH DAILY 06/30/15 [History] Citalopram [CeleXA] 20 mg PO DAILY 08/09/15 [History] Albuterol Neb [Proventil Neb] 2.5 mg IH Q6H PRN 04/17/16 [History] Albuterol Sulfate [Albuterol Inhaler] 2 puff IH Q4H PRN 04/17/16 [History] Oxygen 4 l NS AD 04/17/16 [History] Pantoprazole Sodium [Protonix] 40 mg PO DAILY 04/17/16 [History] Insulin ASPART [Novolog Flexpen] 0 unit SQ AD 02/13/17 [History] Nitroglycerin [Nitrostat] 0.4 mg SL Q5M PRN 02/13/17 [History] Aspirin Enteric Coated [Aspirin EC] 81 mg PO DAILY tablet. 02/15/17 [Rx] Isosorbide MONOnitrate [Isosorbide Mononitrate ER] 120 mg PO DAILY 02/27/17 [ History] Apixaban [Eliquis] 5 mg PO BID #60 tablet 03/01/17 [Rx] Ranitidine HCl [Zantac] 150 mg PO BID 06/15/17 [History] metOLazone [Zaroxolyn] 2.5 mg PO WESA 06/15/17 [History] Acetaminophen [Tylenol Arthritis] 650 mg PO Q8H PRN #0 06/17/17 [Rx] Bumetanide [Bumex] 1 mg PO QPM 07/31/17 [History] SUMAtriptan succinate [Imitrex] 50 mg PO DAILY PRN 07/31/17 [History] Topiramate 50 mg PO BID 07/31/17 [History] Atorvastatin [Lipitor] 40 mg PO HS 12/18/17 [History] Budesonide/Formoterol 160/4.5 [Symbicort 160/4.5] 2 puff IH BID 12/18/17 [ History] Ipratropium/Albuterol Neb [Duoneb] 3 ml IH Q6HR 12/18/17 [History] Loperamide HCl [Anti-Diarrheal] 2 mg PO PER PKG DI PRN 12/18/17 [History] Loratadine [Claritin] 10 mg PO DAILY 12/18/17 [History] Metoprolol [Lopressor] 25 mg PO BID 12/18/17 [History] Nystatin [Nystatin Suspension] 500,000 unit PO QID 12/18/17 [History] Ondansetron [Zofran ODT] 8 mg SL Q8H PRN 12/18/17 [History] Potassium Chloride [K-Tab ER] 20 meq PO DAILY 12/18/17 [History] Umeclidinium [place] [Incruse Ellipta] 62.5 mcg IH DAILY 12/18/17 [History] 3 Allergy/AdvReac Type Severity Reaction Status Date / Time amylase [From Creon] AdvReac Diarrhea Verified 02/13/17 07:44 estrogens, conjugated AdvReac Anxiety Verified 02/13/17 07:44 [From Premarin] hydrocodone [From Vicodin] AdvReac Anxiety Verified 02/13/17 07:44 lipase [From Creon] AdvReac Diarrhea Verified 02/13/17 07:44 metronidazole [From Flagyl] AdvReac See Verified 02/13/17 07:44 Comments protease [From Creon] AdvReac Diarrhea Verified 02/13/17 07:44 Tetracycline AdvReac Anxiety Verified 02/13/17 07:44 tramadol [From Ultram] AdvReac Muscle Pain Verified 02/13/17 07:44 All Systems PM: A 10-system review of systems was performed and is negative for pertinent findings except as documented above in the HPI. Review of systems: All the systems are reviewed everything is benign except the systems and symptoms I mentioned in the history of present illness - Constitutional Vitals: Temp Pulse Resp BP Pulse Ox 98.2 F 55 16 121/83 96 12/18/17 22:27 12/18/17 22:27 12/18/17 22:27 12/18/17 22:27 12/18/17 22:27 General appearance: Present: A&O X 3, answers questions appropriately Exam: Looks lethargic and weak - Head Head exam: Present: atraumatic, normal inspection - Neck Neck exam general surgery: Present: supple - Respiratory Respiratory exam: Present: decreased breath sounds, wheezes (Mild). Absent: rales, respiratory distress, rhonchi - Cardiovascular Cardiovascular exam: Present: bradycardia, +S1, +S2. Absent: systolic murmur, tachycardia - GI/Abdominal GI/Abdominal exam: Present: normal bowel sounds, soft. Absent: rebound, rigid, tenderness - Extremities Exam Extremities exam: Absent: calf tenderness, pedal edema, tenderness - Back Exam Back exam: Absent: CVA tenderness (L), CVA tenderness (R) - Neurological Exam Neurological exam: Present: alert, CN II-XII intact, oriented X3, no focal deficits. Absent: speech deficit - Psychiatric Psychiatric exam: Present: normal affect, normal mood Internal Med - H&P Results - Labs CBC & Chem 7: 12/18/17 18:54 12/18/17 18:54
[2017-12-18] MEDS ORDERED: D5% in Water 1,000 ML IVC PRN (23:26)
[2017-12-18] MEDS ORDERED: Dextrose Gel 15 GM/37.5 ML TUBE PO PRN ×2 (23:26)
[2017-12-18] MEDS ORDERED: *HR* Dextrose 50 % in Water (Syg) 50 ML SYRINGE IVP PRN (23:26)
[2017-12-18] MEDS ORDERED: SUMAtriptan succinate 50 MG TABLET PO SCH (23:45)
[2017-12-18] MEDS ORDERED: Pregabalin 50 MG CAPSULE PO SCH (23:45)
[2017-12-19] MEDS ORDERED: 0.9 % Sodium Chloride 2,000 ML ONE (00:13)
[2017-12-19] MEDS ORDERED: 0.9 % Sodium Chloride 1,000 ML IVC ONE (00:16)
[2017-12-19 00:34] LABS: ABG Base Excess 4 mEq/L (-2 to 3); ABG HCO3 33 mEq/L (21-27); ABG Oxygen Saturation 93 % (95-98); ABG PCO2 62 mmHg (35-45); ABG PH 7.33 pH Units (7.32-7.45); ABG PO2 75 mmHg (85-104); ABG TCO2 35 mEq/L (20-26); Blood Gas Modality NC
[2017-12-19 00:50] LABS: Basophils % 0.4 %; Eosinophils # 0.1 K/mcL (0.0-0.6); Eosinophils % 1.5 %; Hematocrit 50.7 % (35.3-44.9); Hemoglobin 16.3 g/dL (11.5-15.4); Immature Granulocytes % 0.3 % (0-4); Immature Platelets 7.3 % (1.1-6.1); Lymphocytes # 1.5 K/mcL (0.6-4.6); Lymphocytes % 21.9 %; Mean Corpuscular HGB Conc 32.1 g/dL (31.6-35.5); Mean Corpuscular Hemoglobin 24.3 pg (28.0-33.3); Mean Corpuscular Volume 75.6 fL (83.0-100.0); Monocytes # 0.7 K/mcL (0.0-1.3); Monocytes % 10.4 %; Neutrophils # 4.5 K/mcL (1.6-8.9); Platelet Count 171 K/mcL (140-400); Red Blood Count 6.71 M/mcL (3.82-4.97); Red Cell Distribution Width 23.4 % (11.5-14.5); Segmented Neutrophils % 65.5 %
[2017-12-19 01:18] LABS: Calcium 8.3 mg/dL (8.6-10.3); Chol/HDL Ratio 2.9 (0-4.9); Magnesium 2.2 mg/dL (1.6-2.6); Potassium 3.1 mEq/L (3.5-5.1)
[2017-12-19 01:33] LABS: Triiodothyronine (T3) Free 3.31 pg/mL (2.50-3.90)
[2017-12-19 01:43] LABS: Folate 7.6 ng/mL (3.0-16.0)
[2017-12-19] MEDS: 0.9 % Sodium Chloride 1,000 ML IVC SCH ×2 (02:19→10:57)
[2017-12-19 02:24] LABS: Anisocytosis 1+ (Not Present); Hypochromasia Present (Not Present); Platelet Estimate Normal (Normal)
[2017-12-19] MEDS: Albuterol 2.5 MG/3 ML NEBULIZER IH SCH ×2 (04:18→10:28)
[2017-12-19] MEDS ORDERED: (Incruse Ellipta] 62.5 MCG) IH SCH (09:00)
[2017-12-19] MEDS ORDERED: Famotidine 20 MG TABLET PO SCH (09:00)
[2017-12-19] MEDS ORDERED: Tiotropium 18 MCG inhalation IH SCH (09:00)
[2017-12-19] MEDS ORDERED: NON-FORMULARY MEDICATION 1 EACH EACH (Isosorbide Mononitrate [Isosorbide Mononitrate Er] 1 PO SCH (09:00)
[2017-12-19] MEDS ORDERED: Pregabalin 50 MG CAPSULE PO SCH (09:00)
[2017-12-19] MEDS: Topiramate 25 MG TABLET PO SCH ×2 (09:45→20:23)
[2017-12-19] MEDS: Aspirin Enteric Coated 81 MG Tablet PO SCH (09:45)
[2017-12-19] MEDS: Insulin LISPRO 300 UNITS/3 ML VIAL SQ SCH ×3 (09:45→17:56)
[2017-12-19] MEDS: Apixaban 5 MG TABLET PO SCH ×2 (09:45→20:24)
[2017-12-19 10:13] LABS: Amphetamine Screen,Urine Negative ng/mL (Cutoff=1000); Barbiturate Screen,Urine Negative ng/mL (Cutoff=200); Benzodiazepines Screen,Urine Negative ng/mL (Cutoff=200); Cannabinoid Screen,Urine Negative ng/mL (Cutoff = 50); Cocaine Screen,Urine Negative ng/mL (Cutoff= 300); Opiate Screen,Urine Negative ng/mL (Cutoff=300); Phencyclidine Screen,Urine Negative ng/mL (Cutoff=25)
[2017-12-19] MEDS: Budesonide/Formoterol 160/4.5 MDI IH SCH ×2 (10:28→21:28)
--- NOTE | 2017-12-19 10:48 | Internal Med Progress Note ---
Date of Encounter: 12/19/17 Time of Encounter: 08:55 - Assessment and plan (1) Hypotension Current Visit: No Status: Resolved Assessment and plan: Pt remained hypotensive despite IV fluid resuscitation Started on dopamine gtt BP improved will hold all antihypertensive agents at this time closely monitor BP hold IV fluids given hx of CHF and clinical findings concerning for volume overload Qualifiers: Hypotension type: other hypotension type Qualified Code(s): I95.89 - Other hypotension (2) Bradycardia Current Visit: Yes Status: Acute Assessment and plan: HR in 60s at this time denies any chest pain, headache, lightheadedness will continue to hold BB and closely monitor (3) Acute kidney injury superimposed on chronic kidney disease Current Visit: Yes Status: Acute Assessment and plan: history of Stage 2 CKD renal function improved from previous day and appears to be at baseline pt on Bumex at home, will hold at this time will continue to closely monitor renal function (4) Diastolic CHF, chronic Current Visit: Yes Status: Chronic Assessment and plan: noted to have bibasilar rales, likely secondary to the fluid resuscitation currently saturating well on room air holding Bumex due to hypotension will continue to closely monitor (5) Near syncope Current Visit: Yes Status: Acute Assessment and plan: no episodes reported since hospitalization will obtain 2D echo, carotid doppler fall precautions (6) DVT prophylaxis Current Visit: No Status: Acute Assessment and plan: on Eliquis (7) COPD (chronic obstructive pulmonary disease) Current Visit: No Status: Chronic Assessment and plan: not in acute exacerbation continue home meds Qualifiers: COPD type: COPD with acute exacerbation Qualified Code(s): J44.1 - Chronic obstructive pulmonary disease with (acute) exacerbation (8) Diabetes mellitus Current Visit: No Status: Chronic Assessment and plan: sliding scale insulin algorithm monitor FS and BG ADA diet Qualifiers: Diabetes mellitus type: type 2 Diabetes mellitus complication status: with unspecified complications Diabetes mellitus termite helper insulin use: with termite helper use Qualified Code(s): E11.8 - Type 2 diabetes mellitus with unspecified complications; Z79.4 - [facility] (current) use of insulin; Z79.4 - [facility] ( current) use of insulin; Z79.4 - long term care phlebotomist (current) use of insulin; Z79.4 - long term care phlebotomist (current) use of insulin (9) Obesity (BMI 30-39.9) Current Visit: Yes Status: Chronic - Subjective Interval history: Patient is a 52y/o female admitted for evaluation of a near syncope episode and was found to be hypotensive and bradycardic. Pt initially responded to IV fluids however has remained hypotensive despite IV fluid therapy. She was started on dopamine gtt this morning. Pt sat up to eat breakfast and while she was on dopamine gtt, she was noted to have systolic BP in 120s, shortly after breakfast as she laid down back in bed, her systolic bp dropped to 90s. Pt is AAO x 3 and conversing well. Reports of feeling weak but denies any lightheadedness or chest pain. She has history of CHF and is noted to have bibasilar rales due to which IV fluids will be placed on hold. - Constitutional Vitals: Temp Pulse Resp BP Pulse Ox 98.2 F 64 18 125/78 93 12/19/17 07:55 12/19/17 07:55 12/19/17 10:34 12/19/17 09:44 12/19/17 10:34 General appearance: Present: A&O X 3, no acute distress, obese, answers questions appropriately - Head Head exam: Present: atraumatic, normocephalic - Eye Eye exam: Present: conjuntiva pink, sclera anicteric - Respiratory Respiratory exam: Absent: respiratory distress, wheezes (bibasilar rales) - Cardiovascular Cardiovascular exam: Present: RRR, +S1, +S2. Absent: diastolic murmur, gallop, rubs, systolic murmur - GI/Abdominal GI/Abdominal exam: Present: normal bowel sounds, soft, no peritoneal signs. Absent: distended, tenderness - Extremities Exam Extremities exam: Present: warm, radial pulses palpable and symmetrical. Absent : calf tenderness, pedal edema - Neurological Exam Neurological exam: Present: alert, oriented X3 - Psychiatric Psychiatric exam: Present: normal affect, normal mood Internal Medicine: Result - Labs CBC & Chem 7: 12/19/17 00:35 12/19/17 00:35 Labs: Cardiac Enzymes 12/19/17 Range/Units 05:01 Troponin I < 0.03 (< 0.04) ng/mL - ABG Interpretation ABG results: ABG ABG pH 7.33 pH Units (7.32-7.45) 12/19/17 00:32 ABG pCO2 62 mmHg (35-45) H 12/19/17 00:32 ABG pO2 75 mmHg (85-104) L 12/19/17 00:32 ABG O2 Saturation 93 % (95-98) L 12/19/17 00:32 PT/INR, D-dimer PT 15.4 Seconds (9.4-12.1) H 12/18/17 18:54 D-Dimer 295 ng/mLFEU (0-500) 12/18/17 18:54 Consult Discharge Plan - Plan Referrals: Iliana Almaguer MD [Primary Care Provider] -
--- NOTE | 2017-12-19 12:40 | Electrocardiograph Report ---
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
[2017-12-19] MEDS: Ipratropium/Albuterol Neb 3 ML IH SCH ×2 (15:52→21:28)
[2017-12-19] MEDS ORDERED: Insulin LISPRO 300 UNITS/3 ML VIAL SQ SCH (21:00)
[2017-12-20] MEDS: Ipratropium/Albuterol Neb 3 ML IH SCH ×4 (03:37→23:09)
[2017-12-20 05:42] LABS: Eosinophils % 0.9 %
[2017-12-20 05:44] LABS: Basophils % 0.4 %; Eosinophils # 0.1 K/mcL (0.0-0.6); Hematocrit 52.7 % (35.3-44.9); Hemoglobin 15.9 g/dL (11.5-15.4); Immature Granulocytes % 0.3 % (0-4); Immature Platelets 6.3 % (1.1-6.1); Lymphocytes % 10.4 %; Mean Corpuscular HGB Conc 30.2 g/dL (31.6-35.5); Mean Corpuscular Hemoglobin 23.7 pg (28.0-33.3); Mean Corpuscular Volume 78.5 fL (83.0-100.0); Monocytes # 0.9 K/mcL (0.0-1.3); Monocytes % 10.1 %; Neutrophils # 7.2 K/mcL (1.6-8.9); Platelet Count 155 K/mcL (140-400); Red Blood Count 6.71 M/mcL (3.82-4.97); Red Cell Distribution Width 23.6 % (11.5-14.5); Segmented Neutrophils % 77.9 %
[2017-12-20 06:00] LABS: BUN/Creatinine Ratio 18 (6-26); Blood Urea Nitrogen 18 mg/dL (6-20); Calcium 8.7 mg/dL (8.6-10.3); Carbon Dioxide 27 mEq/L (23-29); Chloride 103 mEq/L (98-107); Glucose 436 mg/dL (70-105); Magnesium 2.1 mg/dL (1.6-2.6); Osmolality,Calculated 301 (280-300); Potassium 4.4 mEq/L (3.5-5.1); Sodium 135 mEq/L (136-145); eGFR For African Americans > 60 (> 60); eGFR For Non-African Americans 57 (> 60)
[2017-12-20 06:19] LABS: Anisocytosis 3+ (Not Present); Microcytosis Present (Not Present); Platelet Estimate Normal (Normal)
[2017-12-20] MEDS: Insulin LISPRO 300 UNITS/3 ML VIAL SQ SCH ×6 (08:44→20:30)
[2017-12-20] MEDS: Aspirin Enteric Coated 81 MG Tablet PO SCH (08:45)
[2017-12-20] MEDS: Apixaban 5 MG TABLET PO SCH ×2 (08:45→20:29)
[2017-12-20] MEDS: Topiramate 25 MG TABLET PO SCH ×2 (08:45→20:29)
[2017-12-20] MEDS: Acetaminophen 325 MG TABLET PO PRN (09:03)
[2017-12-20] MEDS: Insulin DETEMIR 100 UNIT/ML X5UNITS SQ SCH (09:23)
[2017-12-20] MEDS: Budesonide/Formoterol 160/4.5 MDI IH SCH ×2 (10:27→23:09)
--- NOTE | 2017-12-20 13:40 | Internal Med Progress Note ---
Date of Encounter: 12/20/17 Time of Encounter: 13:05 - Assessment and plan (1) Hypotension Current Visit: No Status: Resolved Assessment and plan: Resolved discontinue Dopamine gtt BP within acceptable range will continue to hold all antihypertensive agents at this time closely monitor BP Qualifiers: Hypotension type: other hypotension type Qualified Code(s): I95.89 - Other hypotension (2) Bradycardia Current Visit: Yes Status: Resolved Assessment and plan: HR within acceptable range denies any chest pain, headache, lightheadedness will continue to hold BB and closely monitor (3) Acute kidney injury superimposed on chronic kidney disease Current Visit: Yes Status: Acute Assessment and plan: history of Stage 2 CKD renal function back to baseline will hold bumex today and restart if signs of volume overload present (4) Diastolic CHF, chronic Current Visit: Yes Status: Chronic Assessment and plan: no clinical signs of CHF decompensation continue to closely monitor (5) Near syncope Current Visit: Yes Status: Acute Assessment and plan: no episodes reported since hospitalization awaiting 2D echo, carotid doppler fall precautions (6) DVT prophylaxis Current Visit: No Status: Acute Assessment and plan: on Eliquis (7) COPD (chronic obstructive pulmonary disease) Current Visit: No Status: Chronic Assessment and plan: not in acute exacerbation continue home meds Qualifiers: COPD type: COPD with acute exacerbation Qualified Code(s): J44.1 - Chronic obstructive pulmonary disease with (acute) exacerbation (8) Diabetes mellitus Current Visit: No Status: Chronic Assessment and plan: sliding scale insulin algorithm monitor FS and BG ADA diet noted to be hyperglycemic this morning, added Levemir 17units SQ qd, humalog 5units TIDAC (based on her insulin requirements over the last 24 hours) Qualifiers: Diabetes mellitus type: type 2 Diabetes mellitus complication status: with unspecified complications Diabetes mellitus warp picker insulin use: with warp picker use Qualified Code(s): E11.8 - Type 2 diabetes mellitus with unspecified complications; Z79.4 - [facility] (current) use of insulin; Z79.4 - snf ( current) use of insulin; Z79.4 - supervisor agency appointments (current) use of insulin; Z79.4 - snf (current) use of insulin (9) Obesity (BMI 30-39.9) Current Visit: Yes Status: Chronic - Subjective Interval history: Patient is a 52y/o female admitted for evaluation of a near syncope episode and was found to be hypotensive and bradycardic. Pt required dopamine gtt yesterday, however has been off dopamine since last night. BP and HR within acceptable range Continuing to hold all antihypertensives and AV trever blocking agents Currently saturating well on baseline nasal cannula Awaiting PT/OT evaluation tentative d/c in am if remains clinically stable - Constitutional Vitals: Temp Pulse Resp BP Pulse Ox 98.2 F 80 18 135/76 96 12/20/17 10:53 12/20/17 10:53 12/20/17 10:53 12/20/17 10:53 12/20/17 10:53 General appearance: Present: A&O X 3, no acute distress, obese, answers questions appropriately - Head Head exam: Present: atraumatic, normocephalic - Eye Eye exam: Present: conjuntiva pink, sclera anicteric - Respiratory Respiratory exam: Absent: accessory muscle use (equal air entry bilaterally ), respiratory distress, wheezes - Cardiovascular Cardiovascular exam: Present: RRR, +S1, +S2. Absent: diastolic murmur, gallop, rubs, systolic murmur - GI/Abdominal GI/Abdominal exam: Present: normal bowel sounds, soft, no peritoneal signs. Absent: distended, tenderness - Extremities Exam Extremities exam: Present: warm, radial pulses palpable and symmetrical. Absent : calf tenderness - Neurological Exam Neurological exam: Present: alert, oriented X3 Internal Medicine: Result - Labs CBC & Chem 7: 12/20/17 05:14 12/20/17 05:14 Labs: Short CBC 12/20/17 Range/Units 05:14 WBC 9.3 (4.3-11.1) K/mcL Hgb 15.9 H (11.5-15.4) g/dL Hct 52.7 H (35.3-44.9) % Plt Count 155 (140-400) K/mcL Neutrophils # 7.2 (1.6-8.9) K/mcL BMP 12/20/17 05:14 Sodium 135 L Potassium 4.4 Chloride 103 Carbon Dioxide 27 BUN 18 Creatinine 1.01 Glucose 436 H Calcium 8.7 - ABG Interpretation ABG results: ABG ABG pH 7.33 pH Units (7.32-7.45) 12/19/17 00:32 ABG pCO2 62 mmHg (35-45) H 12/19/17 00:32 ABG pO2 75 mmHg (85-104) L 12/19/17 00:32 ABG O2 Saturation 93 % (95-98) L 12/19/17 00:32 PT/INR, D-dimer PT 15.4 Seconds (9.4-12.1) H 12/18/17 18:54 D-Dimer 295 ng/mLFEU (0-500) 12/18/17 18:54 Consult Discharge Plan - Plan Referrals: Iliana Almaguer MD [Primary Care Provider] -
[2017-12-21] MEDS: SUMAtriptan succinate 50 MG TABLET PO PRN ×2 (00:28→22:16)
[2017-12-21] MEDS: Ipratropium/Albuterol Neb 3 ML IH SCH ×4 (03:45→21:59)
[2017-12-21 04:50] LABS: Basophils % 0.5 %
[2017-12-21 04:52] LABS: Basophils # 0.1 K/mcL (0.0-0.2); Eosinophils # 0.2 K/mcL (0.0-0.6); Eosinophils % 1.3 %; Hematocrit 54.8 % (35.3-44.9); Hemoglobin 16.5 g/dL (11.5-15.4); Immature Granulocytes % 0.8 % (0-4); Immature Platelets 5.6 % (1.1-6.1); Lymphocytes # 1.2 K/mcL (0.6-4.6); Lymphocytes % 9.1 %; Mean Corpuscular HGB Conc 30.1 g/dL (31.6-35.5); Mean Corpuscular Hemoglobin 23.8 pg (28.0-33.3); Monocytes # 1.3 K/mcL (0.0-1.3); Monocytes % 9.8 %; Neutrophils # 10.1 K/mcL (1.6-8.9); Platelet Count 143 K/mcL (140-400); Red Blood Count 6.94 M/mcL (3.82-4.97); Red Cell Distribution Width 23.9 % (11.5-14.5); Segmented Neutrophils % 78.5 %
[2017-12-21 05:39] LABS: BUN/Creatinine Ratio 18 (6-26); Blood Urea Nitrogen 14 mg/dL (6-20); Carbon Dioxide 23 mEq/L (23-29); Chloride 103 mEq/L (98-107); Glucose 228 mg/dL (70-105); Magnesium 1.9 mg/dL (1.6-2.6); Osmolality,Calculated 286 (280-300); Phosphorous 2.4 mg/dL (2.7-4.5); Potassium 4.7 mEq/L (3.5-5.1); Sodium 134 mEq/L (136-145); eGFR For African Americans > 60 (> 60); eGFR For Non-African Americans > 60 (> 60)
[2017-12-21 05:47] LABS: Anisocytosis 3+ (Not Present); Platelet Estimate Decreased (Normal)
[2017-12-21 05:48] LABS: Microcytosis Present (Not Present); Tear Drop Cells 2+ (Not Present)
[2017-12-21] MEDS: Insulin LISPRO 300 UNITS/3 ML VIAL SQ SCH ×7 (09:11→22:24)
[2017-12-21] MEDS: Acetaminophen 325 MG TABLET PO PRN (09:13)
[2017-12-21] MEDS: Topiramate 25 MG TABLET PO SCH ×2 (09:13→22:05)
[2017-12-21] MEDS: Aspirin Enteric Coated 81 MG Tablet PO SCH (09:14)
[2017-12-21] MEDS: Apixaban 5 MG TABLET PO SCH ×2 (09:14→22:05)
[2017-12-21] MEDS: Insulin DETEMIR 100 UNIT/ML X5UNITS SQ SCH ×2 (09:20→22:16)
[2017-12-21] MEDS: Budesonide/Formoterol 160/4.5 MDI IH SCH ×2 (10:29→21:59)
[2017-12-21] MEDS ORDERED: Furosemide 40 MG/4 ML VIAL IVP ONE (11:06)
--- NOTE | 2017-12-21 11:33 | Internal Med Progress Note ---
Date of Encounter: 12/21/17 Time of Encounter: 10:35 - Assessment and plan (1) Hypotension Current Visit: No Status: Resolved Assessment and plan: Resolved Has been off dopamine gtt for over 24 hours BP within acceptable range despite holding antihypertensives will continue to hold antihypertensives and closely monitor Qualifiers: Hypotension type: other hypotension type Qualified Code(s): I95.89 - Other hypotension (2) Bradycardia Current Visit: Yes Status: Resolved Assessment and plan: HR within acceptable range denies any chest pain, headache, lightheadedness will continue to hold BB and closely monitor (3) Acute kidney injury superimposed on chronic kidney disease Current Visit: Yes Status: Acute Assessment and plan: history of Stage 2 CKD renal function back to baseline noted to have worsening pulm edema will give one time dose of Lasix 40mg IV restart Bumex in am (4) Diastolic CHF, chronic Current Visit: Yes Status: Chronic Assessment and plan: noted to have bibasilar rales with pulm edema on CXR will give one time dose of Lasix 40mg IV restart home dose of bumex in am will closely monitor BP fluid restriction diet monitor I/Os daily weight (5) Near syncope Current Visit: Yes Status: Acute Assessment and plan: no episodes reported since hospitalization likely secondary drug induced hypotension and bradycardia 2D echo: LVEF >70% with mild LV diastolic dysfunction, severe pulm hypertension pt will need outpatient cardio follow up carotid doppler reported 60-79% stenosis of the right ICA and 40-59% stenosis of the Left ICA. Outpatient follow up with vascular surgery (6) DVT prophylaxis Current Visit: No Status: Acute Assessment and plan: on Eliquis (7) COPD (chronic obstructive pulmonary disease) Current Visit: No Status: Chronic Assessment and plan: not in acute exacerbation continue home meds Qualifiers: COPD type: COPD with acute exacerbation Qualified Code(s): J44.1 - Chronic obstructive pulmonary disease with (acute) exacerbation (8) Diabetes mellitus Current Visit: No Status: Chronic Assessment and plan: sliding scale insulin algorithm monitor FS and BG ADA diet Adjusted levemir and humalog dosing according to her additional insulin requirements over the last 24 hour period. Qualifiers: Diabetes mellitus type: type 2 Diabetes mellitus complication status: with unspecified complications Diabetes mellitus detention insulin use: with detention use Qualified Code(s): E11.8 - Type 2 diabetes mellitus with unspecified complications; Z79.4 - [facility] (current) use of insulin; Z79.4 - [facility] ( current) use of insulin; Z79.4 - [facility] (current) use of insulin; Z79.4 - [facility] (current) use of insulin (9) Obesity (BMI 30-39.9) Current Visit: Yes Status: Chronic - Subjective Interval history: Patient is a 52y/o female admitted for evaluation of a near syncope episode and was found to be hypotensive and bradycardic. Pt seen and examined at bedside. Sitting in chair and denies any distress. Noted to have increase in O2 demand, CXR reported pulm edema. Pt to get one time dose of Lasix 40mg IV. Will restart home dose of bumex in am. PT evaluation recommended no further evaluation - Constitutional Vitals: Temp Pulse Resp BP Pulse Ox 97.9 F 91 20 122/73 96 12/21/17 11:02 12/21/17 11:02 12/21/17 11:02 12/21/17 11:02 12/21/17 11:02 General appearance: Present: A&O X 3, no acute distress, obese, answers questions appropriately - Head Head exam: Present: atraumatic, normocephalic - Eye Eye exam: Present: conjuntiva pink, sclera anicteric - Respiratory Respiratory exam: Present: rales (bibasilar rales ). Absent: respiratory distress, wheezes - Cardiovascular Cardiovascular exam: Present: RRR, +S1, +S2 - GI/Abdominal GI/Abdominal exam: Present: normal bowel sounds, soft, no peritoneal signs. Absent: distended, tenderness - Extremities Exam Extremities exam: Present: warm, radial pulses palpable and symmetrical. Absent : calf tenderness, pedal edema - Neurological Exam Neurological exam: Present: alert, oriented X3 - Psychiatric Psychiatric exam: Present: normal affect, normal mood Internal Medicine: Result - Labs CBC & Chem 7: 12/21/17 04:22 12/21/17 04:22 Labs: Short CBC 12/21/17 Range/Units 04:22 WBC 12.9 H (4.3-11.1) K/mcL Hgb 16.5 H (11.5-15.4) g/dL Hct 54.8 H (35.3-44.9) % Plt Count 143 (140-400) K/mcL Neutrophils # 10.1 H (1.6-8.9) K/mcL BMP 12/21/17 04:22 Sodium 134 L Potassium 4.7 Chloride 103 Carbon Dioxide 23 BUN 14 Creatinine 0.80 Glucose 228 H Calcium 9.0 - ABG Interpretation ABG results: ABG ABG pH 7.33 pH Units (7.32-7.45) 12/19/17 00:32 ABG pCO2 62 mmHg (35-45) H 12/19/17 00:32 ABG pO2 75 mmHg (85-104) L 12/19/17 00:32 ABG O2 Saturation 93 % (95-98) L 12/19/17 00:32 PT/INR, D-dimer PT 15.4 Seconds (9.4-12.1) H 12/18/17 18:54 D-Dimer 295 ng/mLFEU (0-500) 12/18/17 18:54 - Impressions Impressions Chest X-Ray 12/21/17 08:45 IMPRESSION: Pulmonary vascular congestion with increased interstitial changes diffusely suggestive of underlying pulmonary edema. More confluent areas of basilar airspace disease bilaterally could represent more dependent edema or multifocal pneumonia. Small bilateral pleural effusions. D/ / Sumeet Darby MD / Sumeet Darby MD Interpreting Provider: Sumeet Darby MD Consult Discharge Plan - Plan Referrals: Iliana Almaguer MD [Primary Care Provider] -
[2017-12-21] MEDS ORDERED: Insulin DETEMIR 100 UNIT/ML X5UNITS SQ ONE (11:36)
[2017-12-22] MEDS: Ipratropium/Albuterol Neb 3 ML IH SCH ×4 (06:45→21:12)
[2017-12-22 07:34] LABS: Mean Corpuscular HGB Conc 30.2 g/dL (31.6-35.5); Mean Corpuscular Volume 78.1 fL (83.0-100.0)
[2017-12-22 07:36] LABS: Basophils % 0.4 %; Eosinophils # 0.2 K/mcL (0.0-0.6); Eosinophils % 1.6 %; Hemoglobin 16.3 g/dL (11.5-15.4); Immature Granulocytes % 0.5 % (0-4); Immature Platelets 5.5 % (1.1-6.1); Lymphocytes # 0.8 K/mcL (0.6-4.6); Lymphocytes % 7.5 %; Mean Corpuscular Hemoglobin 23.6 pg (28.0-33.3); Monocytes # 1.1 K/mcL (0.0-1.3); Monocytes % 11.1 %; Neutrophils # 8.1 K/mcL (1.6-8.9); Platelet Count 143 K/mcL (140-400); Red Blood Count 6.91 M/mcL (3.82-4.97); Red Cell Distribution Width 23.8 % (11.5-14.5); Segmented Neutrophils % 78.9 %
[2017-12-22 08:13] LABS: BUN/Creatinine Ratio 19 (6-26); Blood Urea Nitrogen 15 mg/dL (6-20); Calcium 8.7 mg/dL (8.6-10.3); Carbon Dioxide 25 mEq/L (23-29); Chloride 106 mEq/L (98-107); Glucose 167 mg/dL (70-105); Osmolality,Calculated 289 (280-300); Phosphorous 3.1 mg/dL (2.7-4.5); Potassium 4.1 mEq/L (3.5-5.1); Sodium 137 mEq/L (136-145); eGFR For African Americans > 60 (> 60); eGFR For Non-African Americans > 60 (> 60)
[2017-12-22] MEDS: Topiramate 25 MG TABLET PO SCH ×2 (08:14→22:12)
[2017-12-22] MEDS: Apixaban 5 MG TABLET PO SCH ×2 (08:15→22:12)
[2017-12-22] MEDS: Bumetanide 1 MG TABLET PO SCH (08:15)
[2017-12-22] MEDS: Aspirin Enteric Coated 81 MG Tablet PO SCH (08:15)
[2017-12-22] MEDS: Insulin LISPRO 300 UNITS/3 ML VIAL SQ SCH ×7 (08:19→22:17)
[2017-12-22 08:34] LABS: Anisocytosis 2+ (Not Present)
[2017-12-22 08:35] LABS: Large Platelets Present (Not Present); Platelet Estimate Normal (Normal); Tear Drop Cells 2+ (Not Present)
[2017-12-22] MEDS: Insulin DETEMIR 100 UNIT/ML X5UNITS SQ SCH ×2 (08:40→22:16)
[2017-12-22] MEDS: Budesonide/Formoterol 160/4.5 MDI IH SCH ×2 (10:47→21:12)
[2017-12-22] MEDS ORDERED: Furosemide 40 MG/4 ML VIAL IVP ONE (14:49)
--- NOTE | 2017-12-22 14:53 | Internal Med Progress Note ---
Date of Encounter: 12/22/17 Time of Encounter: 14:25 - Assessment and plan (1) Hypotension Current Visit: No Status: Resolved Assessment and plan: Resolved BP within acceptable range despite holding antihypertensives will continue to hold antihypertensives and closely monitor Qualifiers: Hypotension type: other hypotension type Qualified Code(s): I95.89 - Other hypotension (2) Bradycardia Current Visit: Yes Status: Resolved Assessment and plan: HR within acceptable range denies any chest pain, headache, lightheadedness will continue to hold BB and closely monitor (3) Acute kidney injury superimposed on chronic kidney disease Current Visit: Yes Status: Acute Assessment and plan: history of Stage 2 CKD renal function back to baseline noted to have worsening pulm edema will give one time dose of Lasix 40mg IV restarted Bumex repeat CXR in am (4) Diastolic CHF, chronic Current Visit: Yes Status: Chronic Assessment and plan: noted to have bibasilar rales with pulm edema on CXR will give one time dose of Lasix 40mg IV restarted home dose of bumex will closely monitor BP fluid restriction diet monitor I/Os daily weight (5) Near syncope Current Visit: Yes Status: Acute Assessment and plan: no episodes reported since hospitalization likely secondary drug induced hypotension and bradycardia 2D echo: LVEF >70% with mild LV diastolic dysfunction, severe pulm hypertension pt will need outpatient cardio follow up carotid doppler reported 60-79% stenosis of the right ICA and 40-59% stenosis of the Left ICA. Outpatient follow up with vascular surgery (6) DVT prophylaxis Current Visit: No Status: Acute Assessment and plan: on Eliquis (7) COPD (chronic obstructive pulmonary disease) Current Visit: No Status: Chronic Assessment and plan: not in acute exacerbation continue home meds Qualifiers: COPD type: COPD with acute exacerbation Qualified Code(s): J44.1 - Chronic obstructive pulmonary disease with (acute) exacerbation (8) Diabetes mellitus Current Visit: No Status: Chronic Assessment and plan: sliding scale insulin algorithm monitor FS and BG ADA diet BG within acceptable range, continue current insulin dosing (9) Obesity (BMI 30-39.9) Current Visit: Yes Status: Chronic - Subjective Interval history: Patient is a 52y/o female admitted for evaluation of a near syncope episode and was found to be hypotensive and bradycardic. Pt seen and examined at bedside. Resting in bed and reports of feeling better compared to previous day however noted to have bibasilar rales. Will give one time dose of IV lasix in addition to continuation of home dose of Bumex. Will repeat CXR in am. Tentative d/c in am if remains clinically stable. Home health services to be arranged prior to discharge - Constitutional Vitals: Temp Pulse Resp BP Pulse Ox 98.2 F 76 18 125/78 94 12/22/17 11:45 12/22/17 11:45 12/22/17 11:45 12/22/17 11:45 12/22/17 11:45 General appearance: Present: A&O X 3, no acute distress, obese, answers questions appropriately - Head Head exam: Present: atraumatic, normocephalic - Eye Eye exam: Present: conjuntiva pink, sclera anicteric - Respiratory Respiratory exam: Absent: respiratory distress, wheezes (bibasilar rales) - Cardiovascular Cardiovascular exam: Present: RRR, +S1, +S2. Absent: diastolic murmur, gallop, rubs, systolic murmur - GI/Abdominal GI/Abdominal exam: Present: normal bowel sounds, soft, no peritoneal signs. Absent: distended, tenderness - Extremities Exam Extremities exam: Present: warm, radial pulses palpable and symmetrical. Absent : calf tenderness, pedal edema - Neurological Exam Neurological exam: Present: alert, oriented X3 Internal Medicine: Result - Labs CBC & Chem 7: 12/22/17 06:57 12/22/17 06:57 Labs: Short CBC 12/22/17 Range/Units 06:57 WBC 10.3 (4.3-11.1) K/mcL Hgb 16.3 H (11.5-15.4) g/dL Hct 54.0 H (35.3-44.9) % Plt Count 143 (140-400) K/mcL Neutrophils # 8.1 (1.6-8.9) K/mcL BMP 12/22/17 06:57 Sodium 137 Potassium 4.1 Chloride 106 Carbon Dioxide 25 BUN 15 Creatinine 0.77 Glucose 167 H Calcium 8.7 - ABG Interpretation ABG results: ABG ABG pH 7.33 pH Units (7.32-7.45) 12/19/17 00:32 ABG pCO2 62 mmHg (35-45) H 12/19/17 00:32 ABG pO2 75 mmHg (85-104) L 12/19/17 00:32 ABG O2 Saturation 93 % (95-98) L 12/19/17 00:32 PT/INR, D-dimer PT 15.4 Seconds (9.4-12.1) H 12/18/17 18:54 D-Dimer 295 ng/mLFEU (0-500) 12/18/17 18:54 Consult Discharge Plan - Plan Referrals: Iliana Almaguer MD [Primary Care Provider] -
[2017-12-22] MEDS: Acetaminophen 325 MG TABLET PO PRN (23:50)
[2017-12-23] MEDS: Ipratropium/Albuterol Neb 3 ML IH SCH ×4 (04:52→21:20)
[2017-12-23 08:34] LABS: Basophils # 0.1 K/mcL (0.0-0.2); Basophils % 0.6 %; Eosinophils # 0.3 K/mcL (0.0-0.6); Hematocrit 51.9 % (35.3-44.9); Hemoglobin 16.1 g/dL (11.5-15.4); Immature Granulocytes % 0.3 % (0-4); Immature Platelets 5.2 % (1.1-6.1); Lymphocytes # 0.8 K/mcL (0.6-4.6); Lymphocytes % 9.3 %; Mean Corpuscular Volume 77.5 fL (83.0-100.0); Monocytes # 1.1 K/mcL (0.0-1.3); Neutrophils # 6.7 K/mcL (1.6-8.9); Platelet Count 136 K/mcL (140-400); Red Cell Distribution Width 23.6 % (11.5-14.5); Segmented Neutrophils % 74.8 %
[2017-12-23 09:09] LABS: BUN/Creatinine Ratio 24 (6-26); Blood Urea Nitrogen 17 mg/dL (6-20); Calcium 8.6 mg/dL (8.6-10.3); Carbon Dioxide 27 mEq/L (23-29); Chloride 105 mEq/L (98-107); Glucose 190 mg/dL (70-105); Osmolality,Calculated 293 (280-300); Phosphorous 3.6 mg/dL (2.7-4.5); Potassium 3.7 mEq/L (3.5-5.1); Sodium 138 mEq/L (136-145); eGFR For African Americans > 60 (> 60); eGFR For Non-African Americans > 60 (> 60)
[2017-12-23 09:20] LABS: Anisocytosis 2+ (Not Present)
[2017-12-23 09:21] LABS: Hypochromasia Present (Not Present); Microcytosis Present (Not Present); Platelet Estimate Normal (Normal); Target Cells 1+ (Not Present)
[2017-12-23] MEDS: Bumetanide 1 MG TABLET PO SCH (10:18)
[2017-12-23] MEDS: Aspirin Enteric Coated 81 MG Tablet PO SCH (10:18)
[2017-12-23] MEDS: Apixaban 5 MG TABLET PO SCH ×2 (10:18→21:33)
[2017-12-23] MEDS: Topiramate 25 MG TABLET PO SCH ×2 (10:18→21:33)
[2017-12-23] MEDS: Insulin LISPRO 300 UNITS/3 ML VIAL SQ SCH ×7 (10:19→21:39)
[2017-12-23] MEDS: Insulin DETEMIR 100 UNIT/ML X5UNITS SQ SCH ×2 (10:19→21:33)
[2017-12-23] MEDS: Budesonide/Formoterol 160/4.5 MDI IH SCH ×2 (10:38→21:20)
[2017-12-23] MEDS ORDERED: Furosemide 40 MG/4 ML VIAL IVP ONE (12:45)
--- NOTE | 2017-12-23 13:27 | Internal Med Progress Note ---
Date of Encounter: 12/23/17 Time of Encounter: 12:15 - Assessment and plan (1) Hypotension Current Visit: No Status: Resolved Assessment and plan: Resolved BP within acceptable range despite holding antihypertensives will continue to hold antihypertensives and closely monitor Qualifiers: Hypotension type: other hypotension type Qualified Code(s): I95.89 - Other hypotension (2) Bradycardia Current Visit: Yes Status: Resolved Assessment and plan: HR within acceptable range denies any chest pain, headache, lightheadedness will continue to hold BB and closely monitor (3) Acute kidney injury superimposed on chronic kidney disease Current Visit: Yes Status: Acute Assessment and plan: history of Stage 2 CKD renal function back to baseline noted to have worsening pulm edema will start IV lasix BID and hold bumex at this time repeat CXR reports improvement in pleural effusion (4) Diastolic CHF, chronic Current Visit: Yes Status: Chronic Assessment and plan: Given acute respiratory distress overnight, will start pt on Lasix IV BID hold bumex at this time will closely monitor BP fluid restriction diet monitor I/Os daily weight (5) Near syncope Current Visit: Yes Status: Acute Assessment and plan: no episodes reported since hospitalization likely secondary drug induced hypotension and bradycardia 2D echo: LVEF >70% with mild LV diastolic dysfunction, severe pulm hypertension pt will need outpatient cardio follow up carotid doppler reported 60-79% stenosis of the right ICA and 40-59% stenosis of the Left ICA. Outpatient follow up with vascular surgery (6) DVT prophylaxis Current Visit: No Status: Acute Assessment and plan: on Eliquis (7) COPD (chronic obstructive pulmonary disease) Current Visit: No Status: Chronic Assessment and plan: not in acute exacerbation continue home meds Qualifiers: COPD type: COPD with acute exacerbation Qualified Code(s): J44.1 - Chronic obstructive pulmonary disease with (acute) exacerbation (8) Diabetes mellitus Current Visit: No Status: Chronic Assessment and plan: sliding scale insulin algorithm monitor FS and BG ADA diet BG within acceptable range, continue current insulin dosing (9) Obesity (BMI 30-39.9) Current Visit: Yes Status: Chronic - Subjective Interval history: Patient is a 52y/o female admitted for evaluation of a near syncope episode and was found to be hypotensive and bradycardic. Pt seen and examined at bedside. Resting a bed, reported to desaturate overnight requiring high flow oxygen. Will start pt on IV lasix, and closely monitor. hold bumex at this time currently saturating well on 4L [place]. Home health services to be arranged prior to discharge - Constitutional Vitals: Temp Pulse Resp BP Pulse Ox 98.3 F 60 16 146/86 98 12/23/17 11:34 12/23/17 11:34 12/23/17 11:34 12/23/17 11:34 12/23/17 11:34 General appearance: Present: A&O X 3, no acute distress, obese, answers questions appropriately - Head Head exam: Present: atraumatic, normocephalic - Eye Eye exam: Present: conjuntiva pink, sclera anicteric - Respiratory Respiratory exam: Absent: respiratory distress, wheezes (bibasilar rales) - Cardiovascular Cardiovascular exam: Present: RRR, +S1, +S2. Absent: diastolic murmur, gallop, rubs, systolic murmur - GI/Abdominal GI/Abdominal exam: Present: normal bowel sounds, soft, no peritoneal signs. Absent: distended, tenderness - Extremities Exam Extremities exam: Present: warm, radial pulses palpable and symmetrical. Absent : calf tenderness, pedal edema - Neurological Exam Neurological exam: Present: alert, oriented X3 - Psychiatric Psychiatric exam: Present: normal affect, normal mood Internal Medicine: Result - Labs CBC & Chem 7: 12/23/17 08:06 12/23/17 08:06 Labs: Short CBC 12/23/17 Range/Units 08:06 WBC 8.9 (4.3-11.1) K/mcL Hgb 16.1 H (11.5-15.4) g/dL Hct 51.9 H (35.3-44.9) % Plt Count 136 L (140-400) K/mcL Neutrophils # 6.7 (1.6-8.9) K/mcL BMP 12/23/17 08:06 Sodium 138 Potassium 3.7 Chloride 105 Carbon Dioxide 27 BUN 17 Creatinine 0.70 Glucose 190 H Calcium 8.6 - ABG Interpretation ABG results: ABG ABG pH 7.33 pH Units (7.32-7.45) 12/19/17 00:32 ABG pCO2 62 mmHg (35-45) H 12/19/17 00:32 ABG pO2 75 mmHg (85-104) L 12/19/17 00:32 ABG O2 Saturation 93 % (95-98) L 12/19/17 00:32 PT/INR, D-dimer PT 15.4 Seconds (9.4-12.1) H 12/18/17 18:54 D-Dimer 295 ng/mLFEU (0-500) 12/18/17 18:54 - Impressions Impressions Chest X-Ray 12/23/17 07:00 IMPRESSION: Slight improvement in the aeration of the lungs suggesting decreasing interstitial edema. Persistent small pleural effusions with bibasilar atelectasis. D/ / 12/23/2017 07:05:54 Dorian Valdovinos MD / [email or web address] Interpreting Provider: Dorian Valdovinos MD Consult Discharge Plan - Plan Referrals: Iliana Almauger MD [Primary Care Provider] -
[2017-12-23] MEDS: Furosemide 20 MG/2 ML VIAL IVP SCH (17:10)
[2017-12-23] MEDS: Acetaminophen 325 MG TABLET PO PRN (21:33)
[2017-12-24] MEDS: Ipratropium/Albuterol Neb 3 ML IH SCH ×3 (03:42→16:32)
[2017-12-24 05:55] LABS: Basophils % 0.6 %; Red Blood Count 6.87 M/mcL (3.82-4.97)
[2017-12-24 05:57] LABS: Basophils # 0.1 K/mcL (0.0-0.2); Eosinophils # 0.2 K/mcL (0.0-0.6); Eosinophils % 3.1 %; Hematocrit 53.4 % (35.3-44.9); Hemoglobin 16.5 g/dL (11.5-15.4); Immature Granulocytes % 0.5 % (0-4); Immature Platelets 6.3 % (1.1-6.1); Lymphocytes # 1.2 K/mcL (0.6-4.6); Lymphocytes % 14.6 %; Mean Corpuscular HGB Conc 30.9 g/dL (31.6-35.5); Mean Corpuscular Volume 77.7 fL (83.0-100.0); Monocytes # 0.8 K/mcL (0.0-1.3); Monocytes % 10.6 %; Neutrophils # 5.6 K/mcL (1.6-8.9); Platelet Count 147 K/mcL (140-400); Red Cell Distribution Width 22.9 % (11.5-14.5); Segmented Neutrophils % 70.6 %
[2017-12-24 07:33] LABS: Acanthocytes 3+ (Not Present); Anisocytosis 1+ (Not Present); Macrocytosis Present (Not Present); Ovalocytes 1+ (Not Present); Platelet Estimate Normal (Normal)
[2017-12-24] MEDS: Topiramate 25 MG TABLET PO SCH (08:46)
[2017-12-24] MEDS: Furosemide 20 MG/2 ML VIAL IVP SCH (08:46)
[2017-12-24] MEDS: Apixaban 5 MG TABLET PO SCH (08:46)
[2017-12-24] MEDS: Aspirin Enteric Coated 81 MG Tablet PO SCH (08:46)
[2017-12-24] MEDS: Insulin LISPRO 300 UNITS/3 ML VIAL SQ SCH ×4 (08:47→16:36)
[2017-12-24] MEDS: Budesonide/Formoterol 160/4.5 MDI IH SCH (09:27)
[2017-12-24] MEDS: Insulin DETEMIR 100 UNIT/ML X5UNITS SQ SCH (11:39)
--- NOTE | 2017-12-24 14:51 | Discharge Summary ---
Date of Encounter: 12/24/17 Time of Encounter: 14:10 - Discharge Diagnosis (1) Hypotension Priority: Primary Status: Resolved Qualifiers: Hypotension type: other hypotension type Qualified Code(s): I95.89 - Other hypotension (2) Bradycardia Priority: Primary Status: Resolved (3) Acute kidney injury superimposed on chronic kidney disease Priority: Secondary Status: Resolved (4) Diastolic CHF, chronic Priority: Secondary Status: Chronic (5) Near syncope Priority: Primary Status: Acute (6) DVT prophylaxis Priority: Secondary Status: Acute (7) COPD (chronic obstructive pulmonary disease) Priority: Secondary Status: Chronic Qualifiers: COPD type: COPD with acute exacerbation Qualified Code(s): J44.1 - Chronic obstructive pulmonary disease with (acute) exacerbation (8) Diabetes mellitus Priority: Secondary Status: Chronic (9) Obesity (BMI 30-39.9) Priority: Secondary Status: Chronic - Discharge Medications Home Medications: Montelukast [Singulair] 10 mg PO HS 06/30/15 [History] Pregabalin [Lyrica] 100 mg PO TID 06/30/15 [History] Tiotropium [Spiriva] 18 mcg IH DAILY 06/30/15 [History] Citalopram [CeleXA] 20 mg PO DAILY 08/09/15 [History] Albuterol Neb [Proventil Neb] 2.5 mg IH Q6H PRN 04/17/16 [History] Albuterol Sulfate [Albuterol Inhaler] 2 puff IH Q4H PRN 04/17/16 [History] Oxygen 4 l NS AD 04/17/16 [History] Pantoprazole Sodium [Protonix] 40 mg PO DAILY 04/17/16 [History] Insulin ASPART [Novolog Flexpen] 0 unit SQ AD 02/13/17 [History] Nitroglycerin [Nitrostat] 0.4 mg SL Q5M PRN 02/13/17 [History] Aspirin Enteric Coated [Aspirin EC] 81 mg PO DAILY tablet. 02/15/17 [Rx] Isosorbide MONOnitrate [Isosorbide Mononitrate ER] 120 mg PO DAILY 02/27/17 [ History] Apixaban [Eliquis] 5 mg PO BID #60 tablet 03/01/17 [Rx] Ranitidine HCl [Zantac] 150 mg PO BID 06/15/17 [History] Acetaminophen [Tylenol Arthritis] 650 mg PO Q8H PRN #0 06/17/17 [Rx] Bumetanide [Bumex] 1 mg PO QPM 07/31/17 [History] SUMAtriptan succinate [Imitrex] 50 mg PO DAILY PRN 07/31/17 [History] Topiramate 50 mg PO BID 07/31/17 [History] Atorvastatin [Lipitor] 40 mg PO HS 12/18/17 [History] Budesonide/Formoterol 160/4.5 [Symbicort 160/4.5] 2 puff IH BID 12/18/17 [ History] Ipratropium/Albuterol Neb [Duoneb] 3 ml IH Q6HR 12/18/17 [History] Loperamide HCl [Anti-Diarrheal] 2 mg PO PER PKG DI PRN 12/18/17 [History] Loratadine [Claritin] 10 mg PO DAILY 12/18/17 [History] Nystatin [Nystatin Suspension] 500,000 unit PO QID 12/18/17 [History] Ondansetron [Zofran ODT] 8 mg SL Q8H PRN 12/18/17 [History] Potassium Chloride [K-Tab ER] 20 meq PO DAILY 12/18/17 [History] Umeclidinium [place] [Incruse Ellipta] 62.5 mcg IH DAILY 12/18/17 [History] Allergies/Adverse Reactions: 3 Allergy/AdvReac Type Severity Reaction Status Date / Time amylase [From Creon] AdvReac Diarrhea Verified 02/13/17 07:44 estrogens, conjugated AdvReac Anxiety Verified 02/13/17 07:44 [From Premarin] hydrocodone [From Vicodin] AdvReac Anxiety Verified 02/13/17 07:44 lipase [From Creon] AdvReac Diarrhea Verified 02/13/17 07:44 metronidazole [From Flagyl] AdvReac See Verified 02/13/17 07:44 Comments protease [From Creon] AdvReac Diarrhea Verified 02/13/17 07:44 Tetracycline AdvReac Anxiety Verified 02/13/17 07:44 tramadol [From Ultram] AdvReac Muscle Pain Verified 02/13/17 07:44 Date of admission: 12/19/17 00:51 Primary care physician: Iliana Almaguer MD Discharging clinician: Yvette Seymour Anticipated date of discharge: 12/24/17 - Patient Status Disposition: Home Health Service Condition: Good Functional capacity at discharge: uses cane/walker Overall status at discharge: patient is back to baseline - Discharge Instructions Follow Up With: Iliana Almaguer MD [Primary Care Provider] - Additional Instructions: Please follow up with primary care physician within five days after your discharge from the hospital please follow up with cardiology within five days after your discharge from the hospital Continue to hold your home dose of Metoprolol, Metolazone until your follow up with your primary care physician. Closely monitor your blood pressure at home. Keep a daily log of your blood pressure readings. Hold your home dose of Imdur is your systolic blood pressure is less than 100. Resume all other medications as prescribed by your primary care physician - Diet and Activity Activity: as per physical therapy Diet: diabetic diet, low fat, low cholesterol, low salt diet Hospital course: Ms. Alanis is a 52 year old female with PMH of Afib, CAD, DM, HTN, HLD, CHF, COPD on LTOT who was admitted for evaluation of a near syncopal episode. Upon further evaluation, she was noted to have VANESSA, and be hypotensive and bradycardic due to which her home dose of metolazone, bumex, and bb was placed on hold. She continued to remain hypotensive requiring IV fluids. She remained hypotensive despite adequate fluid resuscitation, due to which she was stared on dopamine gtt. She improved with dopamine gtt and was able to be weaned off the pressor support after 24 hours. Her hospital course was further complicated by respiratory distress secondary to volume overload. She was started on IV lasix to which she responded appropriately. Her VANESSA resolved and renal function is back to her baseline. She is noted to require 4L of oxygen with ambulation and saturating appropriately on 3-4L while resting. She is medically stable for discharge with home health services. She is to follow up with PCP and cardiology after discharge. - Time Spent with Patient Total time spent providing and/or coordinating discharge services: Greater than 30 minutes - Constitutional Vitals: Temp Pulse Resp BP Pulse Ox 98.1 F 57 16 124/84 98 12/24/17 11:46 12/24/17 11:46 12/24/17 11:46 12/24/17 11:46 02/12/18 11:46 General appearance: Present: A&O X 3, no acute distress, obese, answers questions appropriately - Head Head exam: Present: atraumatic, normocephalic - Eye Eye exam: Present: conjuntiva pink, sclera anicteric - Respiratory Respiratory exam: Present: CTAB. Absent: respiratory distress, wheezes - Cardiovascular Cardiovascular exam: Present: RRR, +S1, +S2. Absent: diastolic murmur, gallop, rubs, systolic murmur - GI/Abdominal GI/Abdominal exam: Present: normal bowel sounds, soft, no peritoneal signs. Absent: distended, tenderness - Extremities Exam Extremities exam: Present: warm, radial pulses palpable and symmetrical. Absent : calf tenderness, pedal edema - Neurological Exam Neurological exam: Present: alert, oriented X3
[2017-12-24 15:13] VITALS: BP 150/83
--- NOTE | 2017-12-24 17:36 | Physician Discharge Referral ---
Home Health/Hosp Referral Info Transfer to: Home Health Provider in Charge Post Discharge: PCP - Diagnosis (1) Hypotension Priority: Primary Status: Resolved (2) Bradycardia Priority: Primary Status: Resolved (3) Acute kidney injury superimposed on chronic kidney disease Priority: Secondary Status: Resolved (4) Diastolic CHF, chronic Priority: Secondary Status: Chronic (5) Near syncope Priority: Secondary Status: Acute (6) DVT prophylaxis Priority: Secondary Status: Acute (7) COPD (chronic obstructive pulmonary disease) Priority: Secondary Status: Chronic (8) Diabetes mellitus Priority: Secondary Status: Chronic (9) Obesity (BMI 30-39.9) Priority: Secondary Status: Chronic - Respiratory Orders Smoking Cessation: Smoking cessation has been advised. For more information, call the [place] Tobacco Quit Line at 1-043-TKPN-NOW. - Services Needed Following services are medically necessary services: Home Health Aide, Physical Therapy, Occupational Therapy - Transfer Medications Home Medications: Montelukast [Singulair] 10 mg PO HS 06/30/15 [History] Pregabalin [Lyrica] 100 mg PO TID 06/30/15 [History] Tiotropium [Spiriva] 18 mcg IH DAILY 06/30/15 [History] Citalopram [CeleXA] 20 mg PO DAILY 08/09/15 [History] Albuterol Neb [Proventil Neb] 2.5 mg IH Q6H PRN 04/17/16 [History] Albuterol Sulfate [Albuterol Inhaler] 2 puff IH Q4H PRN 04/17/16 [History] Oxygen 4 l NS AD 04/17/16 [History] Pantoprazole Sodium [Protonix] 40 mg PO DAILY 04/17/16 [History] Insulin ASPART [Novolog Flexpen] 0 unit SQ AD 02/13/17 [History] Nitroglycerin [Nitrostat] 0.4 mg SL Q5M PRN 02/13/17 [History] Aspirin Enteric Coated [Aspirin EC] 81 mg PO DAILY tablet. 02/15/17 [Rx] Isosorbide MONOnitrate [Isosorbide Mononitrate ER] 120 mg PO DAILY 02/27/17 [ History] Apixaban [Eliquis] 5 mg PO BID #60 tablet 03/01/17 [Rx] Ranitidine HCl [Zantac] 150 mg PO BID 06/15/17 [History] Acetaminophen [Tylenol Arthritis] 650 mg PO Q8H PRN #0 06/17/17 [Rx] Bumetanide [Bumex] 1 mg PO QPM 07/31/17 [History] SUMAtriptan succinate [Imitrex] 50 mg PO DAILY PRN 07/31/17 [History] Topiramate 50 mg PO BID 07/31/17 [History] Atorvastatin [Lipitor] 40 mg PO HS 12/18/17 [History] Budesonide/Formoterol 160/4.5 [Symbicort 160/4.5] 2 puff IH BID 12/18/17 [ History] Ipratropium/Albuterol Neb [Duoneb] 3 ml IH Q6HR 12/18/17 [History] Loperamide HCl [Anti-Diarrheal] 2 mg PO PER PKG DI PRN 12/18/17 [History] Loratadine [Claritin] 10 mg PO DAILY 12/18/17 [History] Nystatin [Nystatin Suspension] 500,000 unit PO QID 12/18/17 [History] Ondansetron [Zofran ODT] 8 mg SL Q8H PRN 12/18/17 [History] Potassium Chloride [K-Tab ER] 20 meq PO DAILY 12/18/17 [History] Umeclidinium [place] [Incruse Ellipta] 62.5 mcg IH DAILY 12/18/17 [History] Allergies/Adverse Reactions: 3 Allergy/AdvReac Type Severity Reaction Status Date / Time amylase [From Creon] AdvReac Diarrhea Verified 02/13/17 07:44 estrogens, conjugated AdvReac Anxiety Verified 02/13/17 07:44 [From Premarin] hydrocodone [From Vicodin] AdvReac Anxiety Verified 02/13/17 07:44 lipase [From Creon] AdvReac Diarrhea Verified 02/13/17 07:44 metronidazole [From Flagyl] AdvReac See Verified 02/13/17 07:44 Comments protease [From Creon] AdvReac Diarrhea Verified 02/13/17 07:44 Tetracycline AdvReac Anxiety Verified 02/13/17 07:44 tramadol [From Ultram] AdvReac Muscle Pain Verified 02/13/17 07:44 Certification: Further, I certify that my clinical findings support that this patient is homebound (i.e. absences from home require considerable and taxing effort and are for medical reasons or alevism services or infrequently or short duration when for other reasons) because: Homebound Reason: Patient requires assistance of a person or device to safely leave home Attestation: My signature below is to certify that this patient is under my care and that I, or nurse practitioner, or a physician's district administrative assistant working with me, has a face-to -face encounter with this patient.
[2017-12-24] MEDS ORDERED: Insulin DETEMIR 100 UNIT/ML X5UNITS SQ SCH (21:00)
== END 2017-12-24 17:02 | disposition home health service (06) | DRG 312 ==
LOC: 2ANU 17:51 → EMEROO 17:51 → 2ANU 21:42
PROVIDERS: ADMIT Internal Medicine; ATTEND Internal Medicine

== ENCOUNTER 2018-12-31 17:06 | Inpatient (IN) ==
--- NOTE | 2018-12-31 18:15 | Emergency Department Note ---
Disposition Clinical Impression: Fall Qualifiers: Encounter type: initial encounter Qualified Code(s): W19.XXXA - Unspecified fall, initial encounter Dislocation of right shoulder joint Qualifiers: Encounter type: initial encounter Qualified Code(s): S43.004A - Unspecified dislocation of right shoulder joint, initial encounter Proximal humeral fracture Qualifiers: Encounter type: initial encounter Fracture type: closed Fracture morphology: unspecified fracture morphology Laterality: right Qualified Code(s): S42.201A - Unspecified fracture of upper end of right humerus, initial encounter for closed fracture Pulmonary contusion Qualifiers: Encounter type: initial encounter Laterality: right Qualified Code(s): S27.321A - Contusion of lung, unilateral, initial encounter Disposition: Admitted As Inpatient Condition: Fair Time of Disposition: 21:54 Trauma HPI - General Chief Complaint: ED Extremity Injury, Upper Stated Complaint: Right arm Pain Time Seen by Provider: 12/31/18 17:18 Nursing Notes Reviewed: Yes Vital Signs Reviewed: Yes - History of Present Illness HPI Narrative: 53-year-old female presents from home by EMS for evaluation after a fall. Patient has history of polymyalgia in her left leg will occasionally give out. This happened to her today while ascending stairs causing her to fall onto her right side. She did not hit her head and did not lose consciousness. She has complaints of right shoulder and right rib pain. She was not able to get herse lf up. Her called EMS. He was not able to assist her as he has stage IV cancer and she is his primary caregiver at home. PMH: Atrial fibrillation on Eliquis. ROS: Positive: As above Negative: Fever, chills, nausea, vomiting, chest pains, palpitations, dyspnea, diaphoresis, abdominal pain, unusual back pain, extremity numbness or tingling. - Related Data Home Medications Medication Instructions Recorded Confirmed RX: Pregabalin [Lyrica] 100 mg PO BID 06/30/15 01/01/19 RX: Citalopram [CeleXA] 20 mg PO DAILY 08/09/15 12/25/18 RX: Albuterol Neb [Proventil Neb] 2.5 mg IH Q6H PRN 04/17/16 12/25/18 RX: Albuterol Sulfate [Albuterol 2 puff IH Q4H PRN 04/17/16 12/25/18 Inhaler] RX: Oxygen 3 l NS AD 04/17/16 12/25/18 RX: Pantoprazole Sodium [Protonix] 20 mg PO DAILY 04/17/16 12/25/18 RX: Nitroglycerin [Nitrostat] 0.4 mg SL Q5M PRN 02/13/17 12/25/18 RX: Isosorbide MONOnitrate 120 mg PO DAILY 02/27/17 01/01/19 [Isosorbide Mononitrate ER] RX: raNITIdine HCl [Zantac] 150 mg PO BID 06/15/17 12/25/18 RX: Bumetanide [Bumex] 1 mg PO DAILY 07/31/17 12/25/18 RX: Topiramate 50 mg PO BID 07/31/17 12/25/18 RX: Loratadine [Claritin] 10 mg PO DAILY 12/18/17 12/25/18 RX: Umeclidinium [place] [Incruse 62.5 mcg IH DAILY 12/18/17 12/25/18 Ellipta] RX: Baclofen [Lioresal] 10 mg PO TID 02/07/18 12/25/18 RX: Atorvastatin [Lipitor] 80 mg PO HS 11/21/18 12/25/18 RX: Insulin ASPART [Novolog 0 unit SQ TID 11/21/18 12/25/18 Flexpen] RX: Insulin Degludec [Tresiba 80 unit SQ QAM 11/21/18 12/25/18 Flextouch U-100] RX: Montelukast [Singulair] 10 mg PO DAILY 11/21/18 12/25/18 RX: Acetaminophen [Tylenol 1,200 mg PO Q6H PRN 12/25/18 12/25/18 Arthritis] RX: Budesonide/Formoterol 160/4.5 2 puff IH BIDR 12/25/18 12/25/18 [Symbicort 160/4.5] RX: Loperamide HCl [Imodium A-D] 4 mg PO Q8HR PRN 12/25/18 12/25/18 RX: Sumatriptan [Imitrex] 20 mg NS DAILY PRN 12/25/18 12/25/18 RX: Metoprolol [Lopressor] 25 mg PO BID 12/28/18 01/01/19 Previous Rx's Medication Instructions Recorded RX: Aspirin Enteric Coated 81 mg PO DAILY tablet. 02/15/17 [Aspirin EC] RX: Apixaban [Eliquis] 5 mg PO BID #60 tablet 03/01/17 Allergies Allergy/AdvReac Type Severity Reaction Status Date / Time amylase [From Creon] AdvReac Diarrhea Verified 12/18/18 13:43 estrogens, conjugated AdvReac Anxiety Verified 12/18/18 13:43 [From Premarin] hydrocodone [From Vicodin] AdvReac Anxiety Verified 12/18/18 13:43 lipase [From Creon] AdvReac Diarrhea Verified 12/18/18 13:43 metronidazole [From Flagyl] AdvReac See Verified 12/18/18 13:43 Comments protease [From Creon] AdvReac Diarrhea Verified 12/18/18 13:43 tetracycline [Tetracycline] AdvReac Anxiety Verified 12/18/18 13:43 All systems ED: reviewed and negative except as stated. Review of Systems: As Per HPI Past Medical History - Past Medical History Medical history: Reports: asthma, atrial fibrillation, COPD, diabetes, hyperlipidemia, hypertension, other Surgical history: Reports: cholecystectomy, vascular surgery (Status post bilateral greater saphenous vein ablations January 2018) Psychiatric history: Reports: anxiety, depression COOPERATIVE MANAGER history: Reports: no COOPERATIVE MANAGER history, 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 - Social History Smoking Status: Current every day smoker Smokeless Tobacco Status: No Alcohol use: Reports: none Drug use: Reports: none Physical Exam Vital Signs Reviewed General: Patient is alert, oriented, and in mild distress holding her right shoulder. Head: atraumatic, normocephalic Eye: normal appearance, PERRL, EOMI, no scleral icterus, no conjunctival injection ENT: mucous membranes moist, normal external ear exam Neck: normal inspection, trachea midline, full ROM Chest: normal inspection, symmetric chest rise Respiratory: Good respiratory effort. Bilateral breath sounds are clear without wheezing, crackles, or rhonchi. Cardiovascular: Regular rate and rhythm. No clicks, rubs, gallops, or murmors. Normal heart sounds. Abdomen: Bowel sounds present normoactive. Abdomen is soft, nondistended, and nontender. No guarding or rebound. No organomegaly noted. Musculoskeletal: Spontaneously moving all extremities. Pain to palpation of right glenohumeral joint. Pain to palpation of right middle ribs in the mi daxillary line. Skin: warm, dry, intact. Neuro: GCS 15. No focal neurologic deficits observed. Psych: Patient's affect is appropriate for situation. Course Course Narrative: Concern for possible left shoulder dislocation versus fracture as well as possible right rib fracture. No evidence of head trauma however, will CT head given all without head trauma while patient is on no anticoagulant. CT head shows no acute changes. X-ray shoulder shows a right humeral head dislocation with proximal humeral fracture impacted into the humeral head. X-ray chest shows pulmonary contusion versus aspiration versus pneumonia. Patient is afebrile without a cough with no history of dysplasia. Pulmonary contusion is most consistent with history and presentation. X-ray ribs show no acute displaced fracture. I discussed the above with on-call orthopedic surgeon, Dr. Phillips. He agrees to accept the patient has consultation with admission to hospitalist. I discussed the above with the admitting hospitalist, Dr. Wahl, who agrees to accept the patient for continued evaluation monitoring. Head CT 12/31/18 17:18 IMPRESSION: 1. No acute intracranial abnormality. 2. Unchanged partially calcified extra-axial mass along the left frontal convexity most compatible with a meningioma. 3. Scattered mucosal thickening of the paranasal sinuses with air-fluid levels in the maxillary sinuses bilaterally. D/ / Philippe Leo MD / Philippe Leo MD Interpreting Provider: Philippe Leo MD Ribs w/Chest X-Ray 12/31/18 17:18 IMPRESSION: No evidence of acute displaced right rib fracture. Patchy right lower lobe airspace disease and small right pleural effusion. This may be related to pulmonary contusion, aspiration or pneumonia. Acute traumatic proximal right humeral fracture. Please see separate shoulder radiographs. D/ / 12/31/2018 18:23:59 Jorge Ac MD / earnold Interpreting Provider: Jorge Ac MD Shoulder X-Ray 12/31/18 17:18 IMPRESSION: Fracture dislocation at the right shoulder as described above. Right basilar atelectasis or pneumonitis. D/ / Dinesh Souza MD / Dinesh Souza MD Interpreting Provider: Dinesh Souza MD Vital Signs Temperature 97.7 F 12/31/18 17:11 Pulse Rate 60 12/31/18 17:11 Respiratory Rate 12 12/31/18 17:11 Blood Pressure 145/77 12/31/18 17:11 O2 Sat by Pulse Oximetry 88 12/31/18 17:11 Temperature 97.7 F 12/31/18 17:11 Pulse Rate 60 12/31/18 17:11 Respiratory Rate 16 12/31/18 21:02 Blood Pressure 138/72 12/31/18 21:02 O2 Sat by Pulse Oximetry 96 12/31/18 21:40 Oxygen Delivery Oxygen Delivery Nasal Cannula Trauma - Lab Data Result diagrams: 01/01/19 05:10 01/01/19 05:10 Lab Results 12/31/18 12/31/18 12/31/18 Range/Units 19:59 19:59 19:59 WBC 6.8 (4.3-11.1) K/mcL RBC 6.75 H (3.82-4.97) M/mcL Hgb 17.7 H (11.5-15.4) g/dL Hct 54.8 H (35.3-44.9) % MCV 81.2 L (83.0-100.0) fL MCH 26.2 L (28.0-33.3) pg MCHC 32.3 (31.6-35.5) g/dL RDW 22.5 H (11.5-14.5) % Plt Count 166 (140-400) K/mcL MPV TNP Immature Gran % 0.6 (0-4) % Seg Neutrophils % 73.8 % Lymphocytes % 15.1 % Monocytes % 8.8 % Eosinophils % 1.0 % Basophils % 0.7 % Neutrophils # 5.0 (1.6-8.9) K/mcL Lymphocytes # 1.0 (0.6-4.6) K/mcL Monocytes # 0.6 (0.0-1.3) K/mcL Eosinophils # 0.1 (0.0-0.6) K/mcL Basophils # 0.1 (0.0-0.2) K/mcL Immature Plt Fraction 5.1 (1.1-6.1) % PT 15.0 H (9.4-12.1) Seconds INR 1.3 Sodium 134 L (136-145) mEq/L Potassium 4.0 (3.5-5.1) mEq/L Chloride 100 (98-107) mEq/L Carbon Dioxide 26 (23-29) mEq/L BUN 22 H (6-20) mg/dL Creatinine 0.71 (0.60-1.20) mg/dL Est GFR ( Amer) > 60 (> 60) Est GFR (Non-Af Amer) > 60 (> 60) BUN/Creatinine Ratio 31 H (6-26) Glucose 414 H (70-105) mg/dL Calculated Osmolality 299 (280-300) Calcium 9.4 (8.6-10.3) mg/dL Attestation Statement - Attestation Attestation: Resident Attestation: I examined this patient and my medical decision making was reviewed with the Resident Physician. I agree with the documented findings, disposition and treatment plan as described except to the extent set forth below. We independently had [id number] contact with the patient. Patient presents emergency department after reported mechanical fall. Patient states she did not hit her head or lose consciousness. Patient on Eliquis for atrial fibrillation. Complaining of right shoulder pain. Patient unable to move the right shoulder. Numbness and tingling in the arm but neurovascularly intact. X-rays concerning for fracture dislocation. Case will be discussed with orthopedics. Patient also has concern for pulmonary contusions. Patient will be admitted for further management.
[2018-12-31 20:30] LABS: Basophils % 0.7 %; Mean Corpuscular HGB Conc 32.3 g/dL (31.6-35.5); Mean Corpuscular Hemoglobin 26.2 pg (28.0-33.3); Mean Corpuscular Volume 81.2 fL (83.0-100.0)
[2018-12-31 20:32] LABS: Basophils # 0.1 K/mcL (0.0-0.2); Eosinophils # 0.1 K/mcL (0.0-0.6); Hematocrit 54.8 % (35.3-44.9); Hemoglobin 17.7 g/dL (11.5-15.4); Immature Granulocytes % 0.6 % (0-4); Immature Platelets 5.1 % (1.1-6.1); Lymphocytes % 15.1 %; Monocytes # 0.6 K/mcL (0.0-1.3); Monocytes % 8.8 %; Platelet Count 166 K/mcL (140-400); Red Blood Count 6.75 M/mcL (3.82-4.97); Red Cell Distribution Width 22.5 % (11.5-14.5); Segmented Neutrophils % 73.8 %
[2018-12-31 20:39] LABS: INR 1.3
[2018-12-31 21:00] LABS: BUN/Creatinine Ratio 31 (6-26); Blood Urea Nitrogen 22 mg/dL (6-20); Calcium 9.4 mg/dL (8.6-10.3); Carbon Dioxide 26 mEq/L (23-29); Chloride 100 mEq/L (98-107); Glucose 414 mg/dL (70-105); Osmolality,Calculated 299 (280-300); Sodium 134 mEq/L (136-145); eGFR For Non-African Americans > 60 (> 60)
[2018-12-31] MEDS ORDERED: Ondansetron 4 MG/2 ML VIAL IVP PRN (21:56)
[2018-12-31] MEDS ORDERED: Naloxone 0.4 MG/ML INJ IVP PRN (21:56)
[2018-12-31] MEDS ORDERED: D5% in Water 1,000 ML IVC PRN (22:00)
[2018-12-31] MEDS ORDERED: Dextrose Gel 15 GM/37.5 ML TUBE PO PRN ×2 (22:00)
[2018-12-31] MEDS ORDERED: *HR* Dextrose 50 % in Water (Syg) 50 ML SYRINGE IVP PRN (22:00)
[2018-12-31] MEDS ORDERED: Dextrose 4 GM Chewable Tablets PO PRN ×2 (22:00)
[2018-12-31] MEDS: Nicotine 21 MG PATCH.TD24 TD SCH (22:52)
--- NOTE | 2018-12-31 23:55 | Internal Med History&Physical ---
Date of Encounter: 12/31/18 Time of Encounter: 22:00 Internal Medicine - H&P: HPI Chief complaint: Right shoulder fracture Admitted From: Emergency Dept Plans for Post Hospital Care: Home History of present illness: Ms. Alanis is a 53 year old female Patient presented to the emergency room after experiencing a fall at home. She states that she was walking upstairs when her left leg gave out and she fell onto her right elbow and then onto her right shoulder. She denies hitting her head and losing consciousness. After she fell she was unable to get up, her who was home with her at the time was also unable to assist her due to history of stage IV cancer, and therefore EMS was called and patient was brought to the hospital. In the emergency room patient's CBC showed a hemoglobin of 17.7 which is around her baseline, white count 6.8 and platelets 166. Patient's INR was 1.3, sodium 134, renal function within normal limits. Patient's blood glucose was 414. A head CT was ordered that showed no acute intracranial abnormality with unchanged partially calcified extra-axial mass along the left frontal convexity most compatible with a meningioma. A chest x-ray 3 view showed no evidence of acute displaced right rib fracture but did show patchy right lower lobe airspace disease and small right pleural effusion thought to be related to pulmonary contusion. Shoulder x-ray was done that showed a fracture dislocation at the right shoulder. A shoulder CT was done that showed acute and displaced fracture of the proximal humerus centered at the surgical neck and extending into the greater and lesser tuberosities. There is inferior subluxation of the humeral head in relation to the glenoid likely related to a large hemarthrosis. Emergency room physician called on-call orthopedic surgery, Dr. Phillips, who agreed to see the patient in consult. Patient was sent to the medical floor for further management. Upon my evaluation, patient states that she is still having some right shoulder pain. She says that she has been having issues with her leg giving out from multiple years. She is currently on Eliquis for atrial fibrillation. She denies nausea, vomiting, diarrhea, constipation, chest pain, abdominal pain and shortness of breath. Her right arm has been placed in a sling at this point. While she does have a history of falls, she is never broken a bone before this. Past Med Surg Social Fam HX - Past Medical History Medical history: asthma, atrial fibrillation, COPD, diabetes, hyperlipidemia, hypertension, other Additional medical history: polymyalgia Psychiatric history: anxiety, depression - Past Surgical History Surgical History: cholecystectomy, vascular surgery (Status post bilateral greater saphenous vein ablations January 2018) Additional surgical history: tubal ligation, "nova sure ablation", egd/colonoscopy, bronchoscopy w/ biopsy & lung nodule, cystoscopy, bilat great saphenous ablation 01/2018 - Social History Smoking Status: Current every day smoker Smokeless Tobacco Status: No Alcohol use: none Drug use: none - Family History Father Adopted: [place]: r[place] Family Member Ethnicity: Non- Living Status: Still Living Hx Family Cardiac Disorders: Yes (4x sx on heart) Hx Family Respiratory Disorders: Yes (COPD) Hx Family Cancer: Yes (prostate) Hx Family GI Disorders: No Hx Family Endocrine Disorder: Yes Hx Family Neuromuscular Disorders: No Hx Family Neurologic Disorders: No Hx Family HEENT Disorders: No Hx Family Autoimmune Disorders: No Mother Name: chidi Family Member Ethnicity: Non- Living Status: Still Living Hx Family Cardiac Disorders: Yes (htn) Hx Family Respiratory Disorders: No Hx Family Cancer: Yes Hx Family GI Disorders: No Hx Family Endocrine Disorder: Yes (DM2) Hx Family Neuromuscular Disorders: No Hx Family Neurologic Disorders: No Hx Family HEENT Disorders: No Hx Family Autoimmune Disorders: No Internal Medicine - H&P: Meds Pregabalin [Lyrica] 100 mg PO TID 06/30/15 [History] Citalopram [CeleXA] 20 mg PO DAILY 08/09/15 [History] Albuterol Neb [Proventil Neb] 2.5 mg IH Q6H PRN 04/17/16 [History] Albuterol Sulfate [Albuterol Inhaler] 2 puff IH Q4H PRN 04/17/16 [History] Oxygen 3 l NS AD 04/17/16 [History] Pantoprazole Sodium [Protonix] 20 mg PO DAILY 04/17/16 [History] Nitroglycerin [Nitrostat] 0.4 mg SL Q5M PRN 02/13/17 [History] Aspirin Enteric Coated [Aspirin EC] 81 mg PO DAILY tablet. 02/15/17 [Rx] Isosorbide MONOnitrate [Isosorbide Mononitrate ER] 120 mg PO DAILY 02/27/17 [History] Apixaban [Eliquis] 5 mg PO BID #60 tablet 03/01/17 [Rx] raNITIdine HCl [Zantac] 150 mg PO BID 06/15/17 [History] Bumetanide [Bumex] 1 mg PO DAILY 07/31/17 [History] Topiramate 50 mg PO BID 07/31/17 [History] Loratadine [Claritin] 10 mg PO DAILY 12/18/17 [History] Umeclidinium [place] [Incruse Ellipta] 62.5 mcg IH DAILY 12/18/17 [History] Baclofen [Lioresal] 10 mg PO TID 02/07/18 [History] Losartan Potassium [Cozaar] 50 mg PO DAILY 02/07/18 [History] Atorvastatin [Lipitor] 80 mg PO HS 11/21/18 [History] Insulin ASPART [Novolog Flexpen] 0 unit SQ TID 11/21/18 [History] Insulin Degludec [Tresiba Flextouch U-100] 80 unit SQ QAM 11/21/18 [History] Montelukast [Singulair] 10 mg PO DAILY 11/21/18 [History] Acetaminophen [Tylenol Arthritis] 1,200 mg PO Q6H PRN 12/25/18 [History] Budesonide/Formoterol 160/4.5 [Symbicort 160/4.5] 2 puff IH BIDR 12/25/18 [History] Cefdinir [Omnicef] 300 mg PO BID 12/25/18 [History] Loperamide HCl [Imodium A-D] 4 mg PO Q8HR PRN 12/25/18 [History] Sumatriptan [Imitrex] 20 mg NS DAILY PRN 12/25/18 [History] Tramadol HCl [Ultram] 50 mg PO Q6HR PRN 12/25/18 [History] Metoprolol [Lopressor] 25 mg PO BID 12/28/18 [History] Allergy/AdvReac Type Severity Reaction Status Date / Time amylase [From Creon] AdvReac Diarrhea Verified 12/18/18 13:43 estrogens, conjugated AdvReac Anxiety Verified 12/18/18 13:43 [From Premarin] hydrocodone [From Vicodin] AdvReac Anxiety Verified 12/18/18 13:43 lipase [From Creon] AdvReac Diarrhea Verified 12/18/18 13:43 metronidazole [From Flagyl] AdvReac See Verified 12/18/18 13:43 Comments protease [From Creon] AdvReac Diarrhea Verified 12/18/18 13:43 tetracycline [Tetracycline] AdvReac Anxiety Verified 12/18/18 13:43 All Systems PM: A 10-system review of systems was performed and is negative for pertinent findings except as documented above in the HPI. - Constitutional Vitals: Temp Pulse Resp BP Pulse Ox 97.5 F L 54 16 186/73 95 12/31/18 22:13 12/31/18 22:13 12/31/18 22:13 12/31/18 22:13 12/31/18 22:31 General appearance: Present: cooperative, mild distress, A&O X 3, pleasant, answers questions appropriately Exam: - - Head Head exam: Present: normal inspection - Eye Eye exam: Present: EOMI, normal appearance - Respiratory Respiratory exam: Present: CTAB. Absent: chest wall tenderness, rales, respiratory distress, rhonchi, wheezes - Cardiovascular Cardiovascular exam: Present: RRR. Absent: diastolic murmur, systolic murmur - GI/Abdominal GI/Abdominal exam: Present: normal bowel sounds, soft. Absent: tenderness - Extremities Exam Extremities exam: Present: tenderness, warm, radial pulses palpable and symmetrical. Absent: calf tenderness, pedal edema Additional comments: Tenderness to posterior right shoulder with palpation. - Neurological Exam Neurological exam: Present: no focal deficits, strengths equal and symetr throughout. Absent: motor sensory deficit, facial droop, speech deficit - Skin Skin exam: Present: dry, normal color, warm Internal Med - H&P Results - Labs CBC & Chem 7: 12/31/18 19:59 12/31/18 19:59 Labs: Short CBC 12/31/18 Range/Units 19:59 WBC 6.8 (4.3-11.1) K/mcL Hgb 17.7 H (11.5-15.4) g/dL Hct 54.8 H (35.3-44.9) % Plt Count 166 (140-400) K/mcL Neutrophils # 5.0 (1.6-8.9) K/mcL BMP 12/31/18 19:59 Sodium 134 L Potassium 4.0 Chloride 100 Carbon Dioxide 26 BUN 22 H Creatinine 0.71 Glucose 414 H Calcium 9.4 - Impressions ITS Impressions Head CT 12/31/18 17:18 IMPRESSION: 1. No acute intracranial abnormality. 2. Unchanged partially calcified extra-axial mass along the left frontal convexity most compatible with a meningioma. 3. Scattered mucosal thickening of the paranasal sinuses with air-fluid levels in the maxillary sinuses bilaterally. D/ / Philippe Leo MD / Philippe Leo MD Interpreting Provider: Philippe Leo MD Ribs w/Chest X-Ray 12/31/18 17:18 IMPRESSION: No evidence of acute displaced right rib fracture. Patchy right lower lobe airspace disease and small right pleural effusion. This may be related to pulmonary contusion, aspiration or pneumonia. Acute traumatic proximal right humeral fracture. Please see separate shoulder radiographs. D/ / 12/31/2018 18:23:59 Jorge Ac MD / earnold Interpreting Provider: Jorge Ac MD Shoulder X-Ray 12/31/18 17:18 IMPRESSION: Fracture dislocation at the right shoulder as described above. Right basilar atelectasis or pneumonitis. D/ / Dinesh Souza MD / Dinesh Souza MD Interpreting Provider: Dinesh Souza MD Shoulder CT 12/31/18 19:44 IMPRESSION: 1. Acute and displaced fracture of the proximal humerus centered at the surgical neck and extending into the greater and lesser tuberosities. Inferior subluxation of the humeral head in relation to the glenoid likely related to large hemarthrosis. 2. Mild pulmonary edema. D/ / Rosas Henson MD / Rosas Henson MD Interpreting Provider: Rosas Henson MD - Assessment and plan (1) Proximal humeral fracture Current Visit: Yes Status: Acute Assessment and plan: As evidenced by imaging, patient also has a right hemarthrosis. Orthopedic surg grisel was notified in the ER. Follow-up orthopedic surgery consult Nothing by mouth after midnight Pain management as needed Sling to right arm applied Qualifiers: Encounter type: initial encounter Fracture type: closed Fracture mo rphology: unspecified fracture morphology Laterality: right Qualified Code(s): S42.201A - Unspecified fracture of upper end of right humerus, initial encounter for closed fracture (2) Fall Current Visit: Yes Status: Acute Assessment and plan: Patient has had history of multiple falls at home. This most recent fall resulted in her right shoulder fracture. Patient describes her falls are result of her left leg "giving out." Consider PT OT consult after orthopedic surgery evaluation Qualifiers: Encounter type: initial encounter Qualified Code(s): W19.XXXA - Unspecified fall, initial encounter (3) Pulmonary contusion Current Visit: Yes Status: Acute Assessment and plan: Likely secondary to fall as seen on chest x-ray. Patient does not exhibit signs of infection. Pain management as needed Continue to monitor respiratory status Qualifiers: Encounter type: initial encounter Laterality: right Qualified Code(s): S27.321A - Contusion of lung, unilateral, initial encounter (4) Insulin dependent diabetes mellitus Current Visit: No Status: Chronic Assessment and plan: Patient's blood sugar in the emergency room was 414. She did not take her insulin today. Continue to monitor sugars every 6 hours Low-dose insulin sliding scale as needed Diabetic diet before midnight, then nothing by mouth after midnight Hold home meds (5) Hyperglycemia Current Visit: No Status: Acute Assessment and plan: Secondary to diabetes, did not take insulin today. Management as above (6) Atrial fibrillation Current Visit: No Status: Chronic Assessment and plan: History of atrial fibrillation on Eliquis. Patient currently rate controlled. Medication list not verified, will continue home meds when verified. Hold Eliquis for now in case surgical intervention is required Qualifiers: Atrial fibrillation type: paroxysmal Qualified Code(s): I48.0 - Paroxysmal atrial fibrillation (7) High hematocrit Current Visit: No Status: Acute Assessment and plan: Currently at baseline, patient seen by oncology during previous admission. Notes from last visit on December 27 indicate likely secondary to COPD. They are considering phlebotomy next week. Continue to monitor (8) DVT prophylaxis Current Visit: No Status: Acute Assessment and plan: SCDs, hold home Eliquis - Time Spent With Patient Total time spent is greater than 50% in coordination of care (as documented) at patient's floor/unit and/or counseling patient: Greater than 35 minutes
[2019-01-01] MEDS: Insulin LISPRO 300 UNITS/3 ML VIAL SQ SCH ×5 (00:09→18:17)
[2019-01-01] MEDS: OXYCODONE Oral CONC 10 MG/0.5 ML ORAL.SYG SL PRN ×3 (00:50→11:03)
[2019-01-01 05:39] LABS: Hematocrit 53.8 % (35.3-44.9); Hemoglobin 16.8 g/dL (11.5-15.4); Mean Corpuscular HGB Conc 31.2 g/dL (31.6-35.5); Mean Corpuscular Hemoglobin 25.1 pg (28.0-33.3); Mean Corpuscular Volume 80.5 fL (83.0-100.0); Mean Platelet Volume 9.8 fL (9.4-12.4); Platelet Count 181 K/mcL (140-400); Red Blood Count 6.68 M/mcL (3.82-4.97)
[2019-01-01 05:48] LABS: INR 1.3; Prothrombin Time 14.1 Seconds (9.4-12.1)
[2019-01-01 06:09] LABS: BUN/Creatinine Ratio 34 (6-26); Blood Urea Nitrogen 22 mg/dL (6-20); Calcium 9.4 mg/dL (8.6-10.3); Carbon Dioxide 28 mEq/L (23-29); Chloride 102 mEq/L (98-107); Glucose 180 mg/dL (70-105); Osmolality,Calculated 294 (280-300); Potassium 3.7 mEq/L (3.5-5.1); Sodium 138 mEq/L (136-145); eGFR For Non-African Americans > 60 (> 60)
--- NOTE | 2019-01-01 09:03 | Orthopedics Progress Note ---
Date of Encounter: 01/01/19 Time of Encounter: 09:02 Subjective Interval history: Patient seen this morning status post fall patient with fracture dislocation at surgical neck. Patient with a history of atrial fibrillation, x-rays and CT reviewed, different treatment options were discussed. Recommendation based on limited bone for fixation and the humeral head and instability plan for reverse shoulder replacement. We reviewed the risks and benefits as well as recovery. All questions were answered. The patient agreed to this treatment plan and acknowledged an understanding of the treatment plan as described. Objective Vital signs: Vital Signs Temp Pulse Resp BP Pulse Ox 01/01/19 07:14 98.7 F 65 15 148/75 97 01/01/19 04:19 98.2 F 59 16 130/66 96 01/01/19 00:14 95 12/31/18 22:31 95 12/31/18 22:13 97.5 F L 54 16 186/73 96 12/31/18 21:40 96 12/31/18 21:02 16 138/72 12/31/18 17:11 97.7 F 60 12 145/77 88 Intake and Output 12/31/18 01/01/19 01/01/19 23:59 07:59 15:59 Intake Total 50 / 50 Balance 50 / 50 Intake: Oral 50 / 50 Other: # Voids 1 Weight 68.492 kg 67.8 kg Blood Glucose* 309 161 Patient Weight 01/01/19 23:59 Weight 67.8 kg - Labs CBC & BMP: 01/01/19 05:10 01/01/19 05:10 Labs: Abnormal lab results WBC 12.8 K/mcL (4.3-11.1) H D 01/01/19 05:10 RBC 6.68 M/mcL (3.82-4.97) H 01/01/19 05:10 Hgb 16.8 g/dL (11.5-15.4) H 01/01/19 05:10 Hct 53.8 % (35.3-44.9) H 01/01/19 05:10 MCV 80.5 fL (83.0-100.0) L 01/01/19 05:10 MCH 25.1 pg (28.0-33.3) L 01/01/19 05:10 MCHC 31.2 g/dL (31.6-35.5) L 01/01/19 05:10 RDW 22.0 % (11.5-14.5) H 01/01/19 05:10 PT 14.1 Seconds (9.4-12.1) H 01/01/19 05:10 BUN 22 mg/dL (6-20) H 01/01/19 05:10 BUN/Creatinine Ratio 34 (6-26) H 01/01/19 05:10 Glucose 180 mg/dL (70-105) H 01/01/19 05:10 Consult Discharge Plan - Plan Referrals: Iliana Almaguer MD [Primary Care Provider] -
[2019-01-01] MEDS: Nicotine 21 MG PATCH.TD24 TD SCH (09:09)
--- NOTE | 2019-01-01 11:17 | Event Note ---
Addendum entered and electronically signed by RAINE Saxena 01/01/19 11:37: Made aware by Dr. Delvalle that patient's surgery is planned for 1330 today. Working to updated all involved providers. Original Note: Date of Encounter: 01/01/19 Time of Encounter: 09:15 Notified by nurse that patient had questions re: surgery Reviewed consent again with patient and discussed risks/benefits of shoulder replacement. Patient stated satisfaction regarding answered questions. Patient stated she does not feel able to sign - verbal witnessed consent obtained by myself and nurse. Patient also c/o low back pain, h/o left hip fracture several months ago as well as right wrist pain. Admits to h/o osteoporosis. Right wrist exam - inspection notes no gross deformity. Exquisite tenderness to snuffbox, no tenderness otherwise. Admits to pain with radial deviation otherwise pain free, full range of motion. Portable Sawyer strength intact - admits to pain in snuffbox with director project management testing. Left wrist unremarkable exam. Right elbow exam unremarkable. Patient admits to pain in shoulder with any core movement. Xrays ordered for further evaluation. Will contact hospitalist re: clearance for procedure today as patient appears to have medical comorbities that may necessitate further evaluation prior to s urgery. Continue NPO with no right shoulder motion, NWB to RUE. Surgery today pending medical evaluation/clearance.
[2019-01-01] MEDS ORDERED: Regadenoson 0.4 MG/5 ML SYRINGE IVP ONE (11:59)
--- NOTE | 2019-01-01 11:59 | Internal Med Progress Note ---
Hospitalist Progress Note - Encounter Date of Encounter: 01/01/19 Time of Encounter: 11:56 - Subjective Interval History: Pt denies chest pain, now or in recent days. She states she is on 3L NC at baseline due to COPD. She denies fever or chills. She denies N/V or diarrhea. - Exam Vitals: Temp Pulse Resp BP Pulse Ox 98.3 F 67 18 179/81 96 01/01/19 11:02 01/01/19 11:02 01/01/19 11:02 01/01/19 11:02 01/01/19 11:02 Exam: General appearance: Present: cooperative, mild distress, A&O X 3, pleasant, answers questions appropriately Exam: - Head Head exam: Present: normal inspection - Eye Eye exam: Present: EOMI, normal appearance - Respiratory Respiratory exam: Present: CTAB. Absent: chest wall tenderness, rales, res piratory distress, rhonchi, wheezes - Cardiovascular Cardiovascular exam: Present: RRR. Absent: diastolic murmur, systolic murmur - GI/Abdominal GI/Abdominal exam: Present: normal bowel sounds, soft. Absent: tenderness - Extremities Exam Extremities exam: Present: tenderness, warm, radial pulses palpable and symmetrical. Absent: calf tenderness, pedal edema Additional comments: Tenderness to posterior right shoulder with palpation. - Neurological Exam Neurological exam: Present: no focal deficits, strengths equal and symetr throughout. Absent: motor sensory deficit, facial droop, speech deficit - Skin Skin exam: Present: dry, normal color, warm - Assessment and Plan (1) CAD (coronary artery disease) Current Visit: No Status: Chronic Assessment and Plan: Hx of moderate ASHD. [facility] 2014 Lesion Findings/Interventions * Left Main Coronary Artery There is a 20% stenosis in the LMCA. * Left Anterior Descending There is a 50% stenosis in the Proximal LAD with FFR finding not consistent with functional stenosis. * Circumflex The Circumflex has a 20% stenosis The 1st Marginal has a 20% stenosis * Right Coronary Artery There is a mid 30% RCA stenosis. There is a 60% stenosis in the Right PDA which is small and diffusely diseased. consulting cardiology for pre-op evaluation. Discussed with Dr. Pierre Cardiology recommending stress test, if abnormal further recommendations from cards to follow. Echo 11/25/18 EV/EV echocardiogram Impressions: LVEF 60%. Moderate left ventricular diastolic dysfunction. Normal right ventricular structure and function. Moderate tricuspid regurgitation. Mild mitral regurgitation. Moderate-severe pulmonary hypertension. (2) Proximal humeral fracture Current Visit: Yes Status: Acute Assessment and Plan: As evidenced by imaging, patient also has a right hemarthrosis. Orthopedic surgery was notified in the ER. Follow-up orthopedic surgery consult Nothing by mouth after midnight Pain management as needed Sling to right arm applied (3) Atrial fibrillation Current Visit: No Status: Chronic Assessment and Plan: History of atrial fibrillation on Eliquis. Patient currently rate controlled. Medication list not verified, will continue home meds when verified. Hold Eliquis for now in case surgical intervention is required (4) Fall Current Visit: Yes Status: Acute Assessment and Plan: Mechanical fall per pt. Patient has had history of multiple falls at home. This most recent fall resulted in her right shoulder fracture. Patient describes her falls are result of her left leg "giving out." Consider PT OT consult after orthopedic surgery evaluation (5) High hematocrit Current Visit: No Status: Acute Assessment and Plan: Possibly due to smoking and or dehydration. Will check Hgb following hydration. Smoking cessation advised. (6) Insulin dependent diabetes mellitus Current Visit: No Status: Chronic Assessment and Plan: Patient's blood sugar in the emergency room was 414. She did not take her insulin today. Continue to monitor sugars every 6 hours Low-dose insulin sliding scale as needed Diabetic diet before midnight, then nothing by mouth after midnight Hold home meds (7) Pulmonary contusion Current Visit: Yes Status: Acute Assessment and Plan: Likely secondary to fall as seen on chest x-ray. Patient does not exhibit signs of infection. Pain management as needed Continue to monitor respiratory status (8) Diabetes mellitus Current Visit: No Status: Chronic Assessment and Plan: Secondary to diabetes, did not take insulin today. (9) Diastolic CHF, chronic Current Visit: No Status: Chronic Assessment and Plan: not in exacerbation DVT Prophylaxis: SCD - Summary of Assessment and Plan Summary of Assessment and Plan: History of present illness: Dr. Seals Ms. Alanis is a 53 year old female Patient presented to the emergency room after experiencing a fall at home. She states that she was walking upstairs when her left leg gave out and she fell onto her right elbow and then onto her right shoulder. She denies hitting her head and losing consciousness. After she fell she was unable to get up, her who was home with her at the time was also unable to assist her due to history of stage IV cancer, and therefore EMS was called and patient was brought to the hospital. In the emergency room patient's CBC showed a hemoglobin of 17.7 which is around her baseline, white count 6.8 and platelets 166. Patient's INR was 1.3, sodium 134, renal function within normal limits. Patient's blood glucose was 414. A head CT was ordered that showed no acute intracranial abnormality with unchanged partially calcified extra-axial mass along the left frontal convexity most compatible with a meningioma. A chest x-ray 3 view showed no evidence of acute displaced right rib fracture but did show patchy right lower lobe airspace disease and small right pleural effusion thought to be related to pulmonary contusion. Shoulder x-ray was done that showed a fracture dislocation at the right shoulder. A shoulder CT was done that showed acute and displaced fracture of the proximal humerus centered at the surgical neck and extending into the greater and lesser tuberosities. There is inferior subluxation of the humeral head in relation to the glenoid likely related to a large hemarthrosis. Emergency room physician called on-call orthopedic surgery, Dr. Phillips, who agreed to see the patient in consult. Patient was sent to the medical floor for further management. Upon my evaluation, patient states that she is still having some right shoulder pain. She says that she has been having issues with her leg giving out from multiple years. She is currently on Eliquis for atrial fibrillation. She denies nausea, vomiting, diarrhea, constipation, chest pain, abdominal pain and shortness of breath. Her right arm has been placed in a sling at this point. While she does have a history of falls, she is never broken a bone before this. - Time Spent with Patient Total time spent is greater than 50% in coordination of care (as documented) at patient's floor/unit and/or counseling patient: less than 15 minutes Plan of Care Discussed with: patient Internal Medicine: Result - Labs CBC & Chem 7: 01/01/19 05:10 01/01/19 05:10 Labs: Short CBC 12/31/18 01/01/19 Range/Units 19:59 05:10 WBC 6.8 12.8 H D (4.3-11.1) K/mcL Hgb 17.7 H 16.8 H (11.5-15.4) g/dL Hct 54.8 H 53.8 H (35.3-44.9) % Plt Count 166 181 (140-400) K/mcL Neutrophils # 5.0 (1.6-8.9) K/mcL BMP 12/31/18 01/01/19 19:59 05:10 Sodium 134 L 138 Potassium 4.0 3.7 Chloride 100 102 Carbon Dioxide 26 28 BUN 22 H 22 H Creatinine 0.71 0.64 Glucose 414 H 180 H Calcium 9.4 9.4 - ABG Interpretation ABG results: PT/INR, D-dimer PT 14.1 Seconds (9.4-12.1) H 01/01/19 05:10 - Impressions Impressions Head CT 12/31/18 17:18 IMPRESSION: 1. No acute intracranial abnormality. 2. Unchanged partially calcified extra-axial mass along the left frontal convexity most compatible with a meningioma. 3. Scattered mucosal thickening of the paranasal sinuses with air-fluid levels in the maxillary sinuses bilaterally. D/ / Philippe Leo MD / Philippe Leo MD Interpreting Provider: Philippe Leo MD Ribs w/Chest X-Ray 12/31/18 17:18 IMPRESSION: No evidence of acute displaced right rib fracture. Patchy right lower lobe airspace disease and small right pleural effusion. This may be related to pulmonary contusion, aspiration or pneumonia. Acute traumatic proximal right humeral fracture. Please see separate shoulder radiographs. D/ / 12/31/2018 18:23:59 Jorge Ac MD / earnold Interpreting Provider: Jorge Ac MD Shoulder X-Ray 12/31/18 17:18 IMPRESSION: Fracture dislocation at the right shoulder as described above. Right basilar atelectasis or pneumonitis. D/ / Dinesh Souza MD / Dinesh Souza MD Interpreting Provider: Dinesh Souza MD Shoulder CT 12/31/18 19:44 IMPRESSION: 1. Acute and displaced fracture of the proximal humerus centered at the surgical neck and extending into the greater and lesser tuberosities. Inferior subluxation of the humeral head in relation to the glenoid likely related to large hemarthrosis. 2. Mild pulmonary edema. D/ / Rosas Henson MD / Rosas Henson MD Interpreting Provider: Rosas Henson MD Wrist X-Ray 01/01/19 09:17 IMPRESSION: No acute osseous abnormality. D/ / Jorge Ac MD / Jorge Ac MD Interpreting Provider: Jorge Ac MD Lumbar Spine X-Ray 01/01/19 09:19 IMPRESSION: 1. Stable mildly displaced fracture of the left greater trochanter. 2. No new acute osseous abnormality in the lumbar spine or pelvis. 3. Mild degenerative changes of the lumbar spine without spondylolisthesis. D/ / 01/01/2019 10:15:58 Valeri Wheeler MD / patrick Interpreting Provider: Valeri Wheeler MD Pelvis X-Ray 01/01/19 09:28 IMPRESSION: 1. Stable mildly displaced fracture of the left greater trochanter. 2. No new acute osseous abnormality in the lumbar spine or pelvis. 3. Mild degenerative changes of the lumbar spine without spondylolisthesis. D/ / 01/01/2019 10:15:58 Valeri Wheeler MD / patrick Interpreting Provider: Valeri Wheeler MD - VTE Documentation of Mechanical Device: Intermittent pneumatic compression device Consult Discharge Plan - Plan Referrals: Iliana Almaguer MD [Primary Care Provider] - (1) CAD (coronary artery disease) Qualifiers: Coronary Disease-Associated Artery/Lesion type: [place] artery [place] vs. transplanted heart: [place] heart Associated angina: angina presence unspecified Qualified Code(s): I25.10 - Atherosclerotic heart disease of [place] coronary artery without angina pectoris (2) Proximal humeral fracture Qualifiers: Encounter type: initial encounter Fracture type: closed Fracture morphology: unspecified fracture morphology Laterality: right Qualified Code(s): S42.201A - Unspecified fracture of upper end of right humerus, initial encounter for closed fracture (3) Atrial fibrillation Qualifiers: Atrial fibrillation type: paroxysmal Qualified Code(s): I48.0 - Paroxysmal atrial fibrillation (4) Fall Qualifiers: Encounter type: initial encounter Qualified Code(s): W19.XXXA - Unspecified fall, initial encounter (7) Pulmonary contusion Qualifiers: Encounter type: initial encounter Laterality: right Qualified Code(s): S27.321A - Contusion of lung, unilateral, initial encounter (8) Diabetes mellitus Qualifiers: Diabetes mellitus type: type 2 Diabetes mellitus extermination inspector insulin use: with mcc use Diabetes mellitus complication status: with unspecified complications Qualified Code(s): E11.8 - Type 2 diabetes mellitus with unspecified complications; Z79.4 - [facility] (current) use of insulin; Z79.4 - [facility] (current) use of insulin; Z79.4 - terminologist (current) use of insulin; Z79.4 - terminologist (current) use of insulin
[2019-01-01] MEDS ORDERED: Nitroglycerin 0.4 MG TAB.SUBL SL PRN (13:27)
[2019-01-01] MEDS ORDERED: SUMAtriptan succinate 50 MG TABLET PO PRN (13:27)
--- NOTE | 2019-01-01 13:57 | Cardiology Consult Note ---
<Sudhakar Barrett - Last Filed: 01/01/19 14:07> Date of Encounter: 01/01/19 Time of Encounter: 13:50 Assessment and Plan (1) Fall Current Visit: Yes Status: Acute Mechanical fall secondary leg weakness, patient denies syncopal episode Management per primary team Qualifiers: Encounter type: initial encounter Qualified Code(s): W19.XXXA - Unspecified fall, initial encounter (2) Proximal humeral fracture Current Visit: Yes Status: Acute Proximal right humerus fracture and dislocation identified on imaging Orthopedic team planning total shoulder prosthesis tomorrow Qualifiers: Encounter type: initial encounter Fracture type: closed Fracture morphology: unspecified fracture morphology Laterality: right Qualified Code(s): S42.201A - Unspecified fracture of upper end of right humerus, initial encounter for closed fracture (3) Chronic diastolic CHF (congestive heart failure) Current Visit: No Status: Chronic History of chronic diastolic heart failure, preserved EF 60% Last echo 11/22/18 demonstrated EF 60%, moderate LV diastolic dsfx, moderate tricuspid regurgitation, moderate-severe pulmonary htn Last pharmacologic Nuclear Stres test 01/09/17 negative for ischemia or infarct, gated EF 70% No history of cath/PCI/CABG No current chest pains, EKG without acute changes, patient currently compliant with medical therapy Recommendations Pharm Nuc Stress in AM If stress is negative patient likely low risk for surgery If stress is positive patient likely moderate risk for surgery Will await stress results Further recommendations per Dr Pierre (4) Atrial fibrillation Current Visit: No Status: Chronic History of chronic AFib rate controlled and anticoagulated Patient currently rate controlled and EKG demonstrated regular rhythm Physical exam regular rate and rhythm, patient denying palpitations Continue medical management Qualifiers: Atrial fibrillation type: paroxysmal Qualified Code(s): I48.0 - Paroxysmal atrial fibrillation Discussion w patient/family: The assessment and plan as outlined above was discussed with the patient and/or family members who expressed understanding and agreement. All questions were answered. Thank you for involving us in the care of your patient. Please call with any questions. History of Present Illness Consult date: 01/01/19 Requesting physician: Tamara Malave Consult reason: pre-op clearance Chief complaint: right shoulder pain History of present illness: Ms. Alanis is a 53 year old female with a past medical history of asthma, AFib, COPD, DM, HLD, HTN, and tobacco abuse who presented after a fall with right shoulder pain. Imaging determined a right proximal humerus fracture dislocation. Due to the patients cardiac history Cardiology was consulted for pre-op clearance. Past Med Surg Social Fam HX - Past Medical History Medical history: asthma, atrial fibrillation, COPD, diabetes, hyperlipidemia, hypertension, other Additional medical history: polymyalgia Psychiatric history: anxiety, depression - Past Surgical History Surgical History: cholecystectomy, vascular surgery (Status post bilateral greater saphenous vein ablations January 2018) Additional surgical history: tubal ligation, "nova sure ablation", egd/colonoscopy, bronchoscopy w/ biopsy & lung nodule, cystoscopy, bilat great saphenous ablation 01/2018 - Social History Smoking Status: Current every day smoker Smokeless Tobacco Status: No Alcohol use: none Drug use: none - Family History Father Adopted: [place]: russell Family Member Ethnicity: Non- Living Status: Still Living Hx Family Cardiac Disorders: Yes (4x sx on heart) Hx Family Respiratory Disorders: Yes (COPD) Hx Family Cancer: Yes (prostate) Hx Family GI Disorders: No Hx Family Endocrine Disorder: Yes Hx Family Neuromuscular Disorders: No Hx Family Neurologic Disorders: No Hx Family HEENT Disorders: No Hx Family Autoimmune Disorders: No Mother Name: chidi Family Member Ethnicity: Non- Living Status: Still Living Hx Family Cardiac Disorders: Yes (htn) Hx Family Respiratory Disorders: No Hx Family Cancer: Yes Hx Family GI Disorders: No Hx Family Endocrine Disorder: Yes (DM2) Hx Family Neuromuscular Disorders: No Hx Family Neurologic Disorders: No Hx Family HEENT Disorders: No Hx Family Autoimmune Disorders: No Medications and Allergies Pregabalin [Lyrica] 100 mg PO BID 06/30/15 [History] Citalopram [CeleXA] 20 mg PO DAILY 08/09/15 [History] Albuterol Neb [Proventil Neb] 2.5 mg IH Q6H PRN 04/17/16 [History] Albuterol Sulfate [Albuterol Inhaler] 2 puff IH Q4H PRN 04/17/16 [History] Oxygen 3 l NS AD 04/17/16 [History] Pantoprazole Sodium [Protonix] 40 mg PO DAILY 04/17/16 [History] Nitroglycerin [Nitrostat] 0.4 mg SL Q5M PRN 02/13/17 [History] Aspirin Enteric Coated [Aspirin EC] 81 mg PO DAILY tablet. 02/15/17 [Rx] Isosorbide MONOnitrate [Isosorbide Mononitrate ER] 120 mg PO DAILY 02/27/17 [History] Apixaban [Eliquis] 5 mg PO BID #60 tablet 03/01/17 [Rx] raNITIdine HCl [Zantac] 150 mg PO BID 06/15/17 [History] Bumetanide [Bumex] 1 mg PO DAILY 07/31/17 [History] Topiramate 50 mg PO BID 07/31/17 [History] Loratadine [Claritin] 10 mg PO DAILY 12/18/17 [History] Umeclidinium [place] [Incruse Ellipta] 1 puff IH DAILY 12/18/17 [History] Baclofen [Lioresal] 10 mg PO BID 02/07/18 [History] Atorvastatin [Lipitor] 80 mg PO HS 11/21/18 [History] Insulin ASPART [Novolog Flexpen] 1 - 30 unit SQ TID 11/21/18 [History] Insulin Degludec [Tresiba Flextouch U-100] 80 unit SQ QAM 11/21/18 [History] Montelukast [Singulair] 10 mg PO DAILY 11/21/18 [History] Acetaminophen [Tylenol Arthritis] 1,300 mg PO QAM 12/25/18 [History] Budesonide/Formoterol 160/4.5 [Symbicort 160/4.5] 2 puff IH BIDR 12/25/18 [History] Loperamide HCl [Imodium A-D] 4 mg PO Q8HR PRN 12/25/18 [History] Metoprolol [Lopressor] 25 mg PO BID 12/28/18 [History] SUMAtriptan succinate [Imitrex] 50 mg PO AD PRN 01/01/19 [History] Allergy/AdvReac Type Severity Reaction Status Date / Time amylase [From Creon] AdvReac Diarrhea Verified 12/18/18 13:43 estrogens, conjugated AdvReac Anxiety Verified 12/18/18 13:43 [From Premarin] hydrocodone [From Vicodin] AdvReac Anxiety Verified 12/18/18 13:43 lipase [From Creon] AdvReac Diarrhea Verified 02/06/19 13:43 metronidazole [From Flagyl] AdvReac See Verified 12/18/18 13:43 Comments protease [From Creon] AdvReac Diarrhea Verified 12/18/18 13:43 tetracycline [Tetracycline] AdvReac Anxiety Verified 12/18/18 13:43 All Systems Review: The remainder of the systems were reviewed and are negative - Constitutional Constitutional: frequent falls, weakness, no chills, no fever(s) - Cardiovascular Cardiovascular: no chest pain at rest, no chest pain with exertion, no dyspnea at rest, no dyspnea on exertion - Gastrointestinal Gastrointestinal: no abdominal pain, no nausea - Musculoskeletal Musculoskeletal: abnormal gait, arthralgias, muscle weakness - Integumentary Integumentary: no erythema, no rash - Neurological Neurological: no abnormal speech, no focal weakness Physical Examination Vital Signs, Last 4 Hours Temp Pulse Resp BP Pulse Ox 01/01/19 11:02 98.3 F 67 18 179/81 96 General: Conversant, No Apparent Distress, Other (appeared lehthargic, likely secondary to pain medication) HEENT: Atraumatic, Normocephaly Neck: No JVD, Normal carotid pulses Cardiac: Reg Rate and Rhythm, Normal S1 and S2, No Murmur, Other Lungs: Normal Breath Sounds, No Wheeze, Rales, Rhonchi Neuro: Alert and responsive, No focal deficits noted Abdomen: Soft, Non-Tender Skin: No rashes noted on visualized skin Musculoskeletal: No Chest Wall Tenderness Extremities: No Edema, Normal Pulses, Other (right arm held in sling, visible deformity noted, sensation and motor intact distally) Results 01/01/19 05:10 01/01/19 05:10 Lab Results 12/31/18 12/31/18 12/31/18 19:59 19:59 19:59 WBC 6.8 Hgb 17.7 H Hct 54.8 H Plt Count 166 INR 1.3 Sodium 134 L Potassium 4.0 Chloride 100 Carbon Dioxide 26 BUN 22 H Creatinine 0.71 Glucose 414 H Calcium 9.4 01/01/19 01/01/19 01/01/19 05:10 05:10 05:10 WBC 12.8 H D Hgb 16.8 H Hct 53.8 H Plt Count 181 INR 1.3 Sodium 138 Potassium 3.7 Chloride 102 Carbon Dioxide 28 BUN 22 H Creatinine 0.64 Glucose 180 H Calcium 9.4 - Imaging and Cardiology Stress Test: report reviewed Echo: report reviewed - EKG Interpretation EKG results cardiology: personally reviewed, sinus rhythm (T wave inversions present in anterolateral leads consistent with previous EKGs) Consult Discharge Plan - Plan Referrals: Iliana Almaguer MD [Primary Care Provider] - <Katherine Pierre - Last Filed: 01/01/19 17:39> Date of Encounter: 01/01/19 - Attending Attestation Patient was seen and evaluated independently by me. Findings, assessment and plan were discussed at length with patient, questions answered. Agree with nurse practitioner's/resident's documentation. Addition as follows, Consulted for pre-op CV eval. 53 yoCF ho mod CAD (2014 LHC LM 20%, pLAD 50%, LCx 20%, mRCA 30%, RPDA 60%) with stable exertional angina 1-2/wk, PAF on eliquis, COPD on O2, DM, HLD, HTN. P/w mechanical fall. Imp R-humerus surgical neck fracture. Plan for surgical fixation. METs unclear due to baseline limited activity due to leg pain. ECG SR, NS TW abn. [id number] TTE EF 60%, mod diastolic dysfunction, RV nl, mod TR, mod-severe PH. [id number] Pharm SPECT no ischemia or infarct. BP fluctuation with pain, RR, CTA, RUE externally fixed, B/L pedal edema. A: R-humeral surgical neck fracture METs unclear, need SPECT for risk stratification CAD, stable angina PAF Pulmonary hypertension COPD on O2 IDDM HTN/HLD P: Pharm SPECT, if no ischemia, no further cardiac workup, moderate cardiac risk for surgery (MACE 6.6%) periop lopressor resume eliquis when able postop Katherine Pierre MD, PhD Assessment and Plan Discussion w patient/family: The assessment and plan as outlined above was discussed with the patient and/or family members who expressed understanding and agreement. All questions were answered. Thank you for involving us in the care of your patient. Please call w ith any questions. History of Present Illness History of present illness: Ms. Alanis is a 53 year old female All Systems Review: The remainder of the systems were reviewed and are negative Physical Examination Vital Signs, Last 4 Hours Temp Pulse Resp BP Pulse Ox 01/01/19 16:11 98.6 F 67 14 125/79 94 Results 01/01/19 05:10 01/01/19 05:10 Lab Results 12/31/18 12/31/18 12/31/18 19:59 19:59 19:59 WBC 6.8 Hgb 17.7 H Hct 54.8 H Plt Count 166 INR 1.3 Sodium 134 L Potassium 4.0 Chloride 100 Carbon Dioxide 26 BUN 22 H Creatinine 0.71 Glucose 414 H Calcium 9.4 01/01/19 01/01/19 01/01/19 05:10 05:10 05:10 WBC 12.8 H D Hgb 16.8 H Hct 53.8 H Plt Count 181 INR 1.3 Sodium 138 Potassium 3.7 Chloride 102 Carbon Dioxide 28 BUN 22 H Creatinine 0.64 Glucose 180 H Calcium 9.4
[2019-01-01 16:43] LABS: VBG HCO3 30 mEq/L (21-27); VBG PCO2 49 mmHg (41-51); VBG PH 7.39 pH Units (7.32-7.42); VBG PO2 183 mmHg (25-50)
[2019-01-01] MEDS ORDERED: Insulin LISPRO 300 UNITS/3 ML VIAL SQ SCH ×2 (21:00)
[2019-01-01] MEDS: Topiramate 25 MG TABLET PO SCH (21:02)
[2019-01-01] MEDS: Baclofen 10 MG TABLET PO SCH (21:02)
[2019-01-01] MEDS: Famotidine 20 MG TABLET PO SCH (21:02)
--- NOTE | 2019-01-01 21:09 | Anesthesia Evaluation PreOp ---
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 Anxiety/Deprssion) Other Medical History: Renal (kidney stones), Diabetes Type II (historically poo rly controlled IDDM) Anesthesia History: No Prior Anesthetic Complications, Past Anesthesia (Nancy, Tubal ligation, Novasure uterine ablation, EGD/Colon, eBUS/Bronch/Nodule Bx, Cystoscopy, B-greater saphenous vein ablation 01/2018) Alcohol Use: none Drug use: none Medications and Allergies Pregabalin [Lyrica] 100 mg PO BID 06/30/15 [History] Citalopram [CeleXA] 20 mg PO DAILY 08/09/15 [History] Albuterol Neb [Proventil Neb] 2.5 mg IH Q6H PRN 04/17/16 [History] Albuterol Sulfate [Albuterol Inhaler] 2 puff IH Q4H PRN 04/17/16 [History] Oxygen 3 l NS AD 04/17/16 [History] Pantoprazole Sodium [Protonix] 40 mg PO DAILY 04/17/16 [History] Nitroglycerin [Nitrostat] 0.4 mg SL Q5M PRN 02/13/17 [History] Aspirin Enteric Coated [Aspirin EC] 81 mg PO DAILY tablet. 02/15/17 [Rx] Isosorbide MONOnitrate [Isosorbide Mononitrate ER] 120 mg PO DAILY 02/27/17 [History] Apixaban [Eliquis] 5 mg PO BID #60 tablet 03/01/17 [Rx] raNITIdine HCl [Zantac] 150 mg PO BID 06/15/17 [History] Bumetanide [Bumex] 1 mg PO DAILY 07/31/17 [History] Topiramate 50 mg PO BID 07/31/17 [History] Loratadine [Claritin] 10 mg PO DAILY 12/18/17 [History] Umeclidinium [place] [Incruse Ellipta] 1 puff IH DAILY 12/18/17 [History] Baclofen [Lioresal] 10 mg PO BID 02/07/18 [History] Atorvastatin [Lipitor] 80 mg PO HS 11/21/18 [History] Insulin ASPART [Novolog Flexpen] 1 - 30 unit SQ TID 11/21/18 [History] Insulin Degludec [Tresiba Flextouch U-100] 80 unit SQ QAM 11/21/18 [History] Montelukast [Singulair] 10 mg PO DAILY 11/21/18 [History] Acetaminophen [Tylenol Arthritis] 1,300 mg PO QAM 12/25/18 [History] Budesonide/Formoterol 160/4.5 [Symbicort 160/4.5] 2 puff IH BIDR 12/25/18 [History] Loperamide HCl [Imodium A-D] 4 mg PO Q8HR PRN 12/25/18 [History] Metoprolol [Lopressor] 25 mg PO BID 12/28/18 [History] SUMAtriptan succinate [Imitrex] 50 mg PO AD PRN 01/01/19 [History] Allergy/AdvReac Type Severity Reaction Status Date / Time amylase [From Creon] AdvReac Diarrhea Verified 12/18/18 13:43 estrogens, conjugated AdvReac Anxiety Verified 12/18/18 13:43 [From Premarin] hydrocodone [From Vicodin] AdvReac Anxiety Verified 12/18/18 13:43 lipase [From Creon] AdvReac Diarrhea Verified 12/18/18 13:43 metronidazole [From Flagyl] AdvReac See Verified 12/18/18 13:43 Comments protease [From Creon] AdvReac Diarrhea Verified 12/18/18 13:43 tetracycline [Tetracycline] AdvReac Anxiety Verified 12/18/18 13:43 - Meds/Allergy Pre-op Review Medications Reviewed: Yes Allergies Reviewed: Yes Beta Blockers on Current Med List: Yes (Metoprolol) If Beta Blockers taken, Date/Time (Last Dose taken): likely held secondary to bradycardia Anesthesia Results - Labs 01/01/19 05:10 01/01/19 05:10 Laboratory Results Laboratory Tests 11/22/18 01/01/19 01/01/19 11:24 05:10 05:10 PT 14.1 H INR 1.3 APTT 36.4 H Est GFR (Non-Af Amer) > [address] 12/31/18 17:18 IMPRESSION: 1. No acute intracranial abnormality. 2. Unchanged partially calcified extra-axial mass along the left frontal convexity most compatible with a meningioma. 3. Scattered mucosal thickening of the paranasal sinuses with air-fluid levels in the maxillary sinuses bilaterally. Shoulder CT 12/31/18 19:44 IMPRESSION: 1. Acute and displaced fracture of the proximal humerus centered at the surgical neck and extending into the greater and lesser tuberosities. Inferior subluxation of the humeral head in relation to the glenoid likely related to large hemarthrosis. 2. Mild pulmonary edema. D/ / Rosas Henson MD / Rosas Henson MD Interpreting Provider: Rosas Henson MD Lumbar Spine X-Ray 01/01/19 09:19 IMPRESSION: 1. Stable mildly displaced fracture of the left greater trochanter. 2. No new acute osseous abnormality in the lumbar spine or pelvis. 3. Mild degenerative changes of the lumbar spine without spondylolisthesis. D/ / 01/01/2019 10:15:58 Valeri Wheeler MD / patrick Interpreting Provider: Valeri Wheeler MD Pelvis X-Ray 01/01/19 09:28 IMPRESSION: 1. Stable mildly displaced fracture of the left greater trochanter. 2. No new acute osseous abnormality in the lumbar spine or pelvis. 3. Mild degenerative changes of the lumbar spine without spondylolisthesis. D/ / 01/01/2019 10:15:58 Valeri Wheeler MD / patrick Interpreting Provider: Valeri Wheeler MD Chest X-Ray 01/01/19 16:18 IMPRESSION: 1. Stable pulmonary vascular congestion with small bilateral pleural effusions and associated bibasilar atelectasis. D/ / 01/01/2019 18:12:17 Ramón Finn MD / mague Interpreting Provider: Ramón Finn MD - Imaging EKG: image reviewed (51bpm - SINUS BRADYCARDIA RIGHT AXIS DEVIATION POSSIBLE RIGHT VENTRICULAR CONDUCTION DELAY ST-T-WAVE ABNORMALITY, CONSIDER ANTERIOR ISCHEMIA Electronically Signed On 12-28-2018 16:02:50 EST by Katherine Pierre) Chest x-ray: report reviewed Anesthesia Exam Vital Signs Temp Pulse Resp BP Pulse Ox 01/01/19 21:10 99.4 F 01/01/19 18:47 99.0 F 76 16 134/79 91 01/01/19 16:11 98.6 F 67 14 125/79 94 01/01/19 11:02 98.3 F 67 18 179/81 96 01/01/19 07:14 98.7 F 65 15 148/75 97 01/01/19 04:19 98.2 F 59 16 130/66 96 01/01/19 00:14 95 12/31/18 22:31 95 12/31/18 22:13 97.5 F L 54 16 186/73 96 12/31/18 21:40 96 Intake and Output 01/01/19 01/01/19 01/01/19 07:59 15:59 23:59 Intake Total 50 / 50 200 / 200 Balance 50 / 50 200 / 200 Intake: Oral 50 / 50 200 / 200 Other: Meal Lunch Percent of Meal Consumed 100% # Voids 1 1 Weight 67.8 kg Blood Glucose* 161 168 269 Patient Weight 01/01/19 23:59 Weight 67.8 kg Height: 5'3" Weight: 149# BMI = 26.5 - HEENT Pupil (Motor): Pupils equal, EOMI Mallampati: II Teeth: Edentulous, Poor dentition Oral Opening: Greater than 3 Anesthesia Assess/Plan ASA Score: 3 (Paroxysmal AFib, HTN, Chol, Smoker, COPD, Asthma, Anxiety/Depression, DM,) Level of consciousness: Cooperative Anesthetic Plan: General, Regional Nerve Block Regional Nerve Block Plan: Supraclavicular Monitoring Plan: Standard Monitors Recovery Plan: PACU <Manuel Park - Last Filed: 01/02/19 14:12> Date of Encounter: 01/02/19 - Past History Cardiac History: HTN, Hyperlipidemia, Arrhythmia Pulmonary History: Smoker, Asthma, COPD, 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 Other Medical History: Renal, Diabetes Type II Anesthesia History: No Prior Anesthetic Complications, Past Anesthesia Alcohol Use: none Drug use: none - Meds/Allergy Pre-op Review Medications Reviewed: Yes Allergies Reviewed: Yes Beta Blockers on Current Med List: Yes Anesthesia Results - Labs 01/01/19 05:10 01/01/19 05:10 - Imaging EKG: image reviewed Chest x-ray: report reviewed Anesthesia Exam - HEENT Pupil (Motor): EOMI Mallampati: II Teeth: Edentulous, Poor dentition Oral Opening: Greater than 3 - CERAMIC ENGINEER LOC: Oriented CERAMIC ENGINEER Motor: Normal RUE, Normal LUE, Normal RLE, Normal LLE, Normal Face CERAMIC ENGINEER Sensory: Normal: RUE, LUE, RLE, LLE, Face - Cardiac Rhythm: Regular Murmur: None JVD: No Carotid Bruit: No - Pulmonary Breath Sounds: bilateral Clear Respiratory Effort: Symmetrical Anesthesia Assess/Plan ASA Score: 3 Level of consciousness: Cooperative Anesthetic Plan: General, Regional Nerve Block Regional Nerve Block Plan: Supraclavicular Monitoring Plan: Standard Monitors Recovery Plan: PACU (Discussed GA, Brachial Plexus Block, agrees to proceed)
[2019-01-01] MEDS: Pregabalin 50 MG CAPSULE PO SCH (21:30)
[2019-01-01] MEDS: Budesonide/Formoterol 160/4.5 1 PUFF INH IH SCH (21:48)
[2019-01-02] MEDS: OXYCODONE Oral CONC 10 MG/0.5 ML ORAL.SYG SL PRN (00:42)
[2019-01-02] MEDS: Insulin LISPRO 300 UNITS/3 ML VIAL SQ SCH ×4 (00:43→17:40)
[2019-01-02 01:06] LABS: Amphetamine Screen,Urine Negative ng/mL (Cutoff=1000); Barbiturate Screen,Urine Negative ng/mL (Cutoff=200); Benzodiazepines Screen,Urine Negative ng/mL (Cutoff=200); Cannabinoid Screen,Urine Negative ng/mL (Cutoff = 50); Cocaine Screen,Urine Negative ng/mL (Cutoff= 300); Opiate Screen,Urine Negative ng/mL (Cutoff=300); Phencyclidine Screen,Urine Negative ng/mL (Cutoff=25)
[2019-01-02] MEDS ORDERED: Regadenoson 0.4 MG/5 ML SYRINGE IVP ONE (05:54)
--- NOTE | 2019-01-02 06:37 | Orthopedics Progress Note ---
Date of Encounter: 01/02/19 Time of Encounter: 06:36 Subjective Interval history: Patient with displaced fracture dislocation right shoulder. Patient awaiting surgical clearance, patient will have stress test this morning with a plan for surgery this afternoon. This was all reviewed with the patient. Objective Vital signs: Vital Signs Temp Pulse Resp BP Pulse Ox 01/02/19 03:19 98.3 F 71 16 166/89 94 01/01/19 22:29 98.5 F 72 14 150/77 96 01/01/19 21:10 99.4 F 01/01/19 18:47 99.0 F 76 16 134/79 91 01/01/19 16:11 98.6 F 67 14 125/79 94 01/01/19 11:02 98.3 F 67 18 179/81 96 01/01/19 07:14 98.7 F 65 15 148/75 97 Intake and Output 01/01/19 01/01/19 01/02/19 15:59 23:59 07:59 Intake Total 200 / 200 Output Total 450 / 450 Balance 200 / 200 -450 / -450 Intake: Oral 200 / 200 Output: Urine 450 / 450 Other: Meal Lunch Percent of Meal Consumed 100% # Voids 1 Blood Glucose* 168 269 - Labs CBC & BMP: 01/01/19 05:10 01/01/19 05:10 Labs: Abnormal lab results WBC 12.8 K/mcL (4.3-11.1) H D 01/01/19 05:10 RBC 6.68 M/mcL (3.82-4.97) H 01/01/19 05:10 Hgb 16.8 g/dL (11.5-15.4) H 01/01/19 05:10 Hct 53.8 % (35.3-44.9) H 01/01/19 05:10 MCV 80.5 fL (83.0-100.0) L 01/01/19 05:10 MCH 25.1 pg (28.0-33.3) L 01/01/19 05:10 MCHC 31.2 g/dL (31.6-35.5) L 01/01/19 05:10 RDW 22.0 % (11.5-14.5) H 01/01/19 05:10 PT 14.1 Seconds (9.4-12.1) H 01/01/19 05:10 VBG pO2 183 mmHg (25-50) H 01/01/19 16:41 VBG HCO3 30 mEq/L (21-27) H 01/01/19 16:41 BUN 22 mg/dL (6-20) H 01/01/19 05:10 BUN/Creatinine Ratio 34 (6-26) H 01/01/19 05:10 Glucose 180 mg/dL (70-105) H 01/01/19 05:10 POC Glucose 210 mg/dL (70-99) H 01/01/19 16:18 - VTE Documentation of Mechanical Device: Intermittent pneumatic compression device Consult Discharge Plan - Plan Referrals: Iliana Almaguer MD [Primary Care Provider] -
[2019-01-02] MEDS: Aspirin Enteric Coated 81 MG Tablet PO SCH (09:20)
[2019-01-02] MEDS: Loratadine 10 MG TABLET PO SCH (09:20)
[2019-01-02] MEDS: Bumetanide 1 MG TABLET PO SCH (09:20)
[2019-01-02] MEDS: Baclofen 10 MG TABLET PO SCH ×2 (09:20→23:56)
[2019-01-02] MEDS: Nicotine 21 MG PATCH.TD24 TD SCH (09:21)
[2019-01-02] MEDS: Famotidine 20 MG TABLET PO SCH ×2 (09:21→23:56)
[2019-01-02] MEDS: Acetaminophen 325 MG TABLET PO SCH (09:21)
[2019-01-02] MEDS: Isosorbide MONOnitrate (24 HR) 60 MG TAB.ER.24H PO SCH (09:25)
[2019-01-02] MEDS: Topiramate 25 MG TABLET PO SCH ×2 (09:25→23:56)
[2019-01-02] MEDS: Pregabalin 50 MG CAPSULE PO SCH ×2 (09:29→23:56)
[2019-01-02] MEDS: (Umeclidinium Bromide [Incruse Ellipta] 1 PUFF) IH SCH (09:29)
[2019-01-02] MEDS: Budesonide/Formoterol 160/4.5 1 PUFF INH IH SCH ×2 (10:01→20:17)
--- NOTE | 2019-01-02 10:49 | Event Note ---
Date of Encounter: 01/02/19 Time of Encounter: 10:49 S/w Cardiology re: stress test - patient moderate risk for surgery today.
--- NOTE | 2019-01-02 10:50 | Event Note ---
<Sudhakar Barrett - Last Filed: 01/02/19 10:47> Date of Encounter: 01/02/19 Time of Encounter: 10:47 Stress test negative without ischemia or infarct, gated EF 65%. Patient does not require further cardio work up at this time, will sign off. Patient remains moderate surgical risk due to previous history of cardiovascular disease and intervention. Please call with any questions/concerns. <Katherine Pierre - Last Filed: 01/02/19 14:39> Date of Encounter: 01/02/19 Pharm SPECT: no ischemia or infarct. - moderate cardiac risk for surgery (MACE 6.6%) - No further cardiac workup, - periop lopressor - resume eliquis when able postop
--- NOTE | 2019-01-02 11:36 | Internal Med Progress Note ---
Hospitalist Progress Note - Encounter Date of Encounter: 01/02/19 Time of Encounter: 11:32 - Subjective Interval History: Pt denies chest pain, now or in recent days. She states she is on 3L NC at baseline due to COPD and chronic respiratory failure. She denies fever or chills. She denies N/V or diarrhea. - Exam Vitals: Temp Pulse Resp BP Pulse Ox 97.8 F 64 18 150/71 95 01/02/19 10:57 01/02/19 10:57 01/02/19 10:57 01/02/19 10:57 01/02/19 10:57 Exam: General appearance: Present: cooperative, mild distress, A&O X 3, pleasant, answers questions appropriately Exam: - Head Head exam: Present: normal inspection - Eye Eye exam: Present: EOMI, normal appearance - Respiratory Respiratory exam: Present: CTAB. Absent: chest wall tenderness, rales, respiratory distress, rhonchi, wheezes - Cardiovascular Cardiovascular exam: Present: RRR. Absent: diastolic murmur, systolic murmur - GI/Abdominal GI/Abdominal exam: Present: normal bowel sounds, soft. Absent: tenderness - Extremities Exam Extremities exam: Present: tenderness, warm, radial pulses palpable and symmetrical. Absent: calf tenderness, pedal edema Additional comments: Tenderness to posterior right shoulder with palpation. - Neurological Exam Neurological exam: Present: no focal deficits, strengths equal and symetr throughout. Absent: motor sensory deficit, facial droop, speech deficit - Skin Skin exam: Present: dry, normal color, warm - Assessment and Plan (1) CAD (coronary artery disease) Current Visit: No Status: Chronic Assessment and Plan: Hx of moderate ASHD. Pre-op evaluation Seen by cardiology. Stress test done 01/02/19 was negative. Based on pt's history of CAD, HTN, DM-II, CHF pt posses moderate risk for procedure. Pt informed of risk and she is aware. If pt consents, she my proceed with planned surgery. [facility] 2014 Lesion Findings/Interventions * Left Main Coronary Artery There is a 20% stenosis in the LMCA. * Left Anterior Descending There is a 50% stenosis in the Proximal LAD with FFR finding not consistent with functional stenosis. * Circumflex The Circumflex has a 20% stenosis The 1st Marginal has a 20% stenosis * Right Coronary Artery There is a mid 30% RCA stenosis. There is a 60% stenosis in the Right PDA which is small and diffusely diseased. consulting cardiology for pre-op evaluation. Discussed with Dr. Pierre Cardiology recommending stress test, if abnormal further recommendations from cards to follow. Echo 11/25/18 EV/EV echocardiogram Impressions: LVEF 60%. Moderate left ventricular diastolic dysfunction. Normal right ventricular structure and function. Moderate tricuspid regurgitation. Mild mitral regurgitation. Moderate-severe pulmonary hypertension. (2) Proximal humeral fracture Current Visit: Yes Status: Acute Assessment and Plan: As evidenced by imaging, patient also has a right hemarthrosis. Orthopedic surgery was notified in the ER. Followed-up by orthopedic surgery Nothing by mouth after midnight Pain management as needed Sling to right arm applied Planned shoulder surgery 01/02/19 (3) Atrial fibrillation Current Visit: No Status: Chronic Assessment and Plan: History of atrial fibrillation on Eliquis. Patient currently rate controlled. Medication list not verified, will continue home meds when verified. Holding Eliquis for now due to planned surgical intervention. (4) Fall Current Visit: Yes Status: Acute Assessment and Plan: Mechanical fall per pt. Patient has had history of multiple falls at home. This most recent fall resulted in her right shoulder fracture. Patient describes her falls are result of her left leg "giving out." Consider PT OT consult after orthopedic surgery evaluation. Urine tox negative and pt denies history of heavy ETOH use. (5) High hematocrit Current Visit: No Status: Acute Assessment and Plan: Possibly due to smoking and or dehydration. Will check Hgb following hydration. Smoking cessation advised. (6) Insulin dependent diabetes mellitus Current Visit: No Status: Chronic Assessment and Plan: Patient's blood sugar in the emergency room was 414. She did not take her insulin today. Continue to monitor sugars every 6 hours Low-dose insulin sliding scale as needed Diabetic diet before midnight, then nothing by mouth after midnight Hold home meds (7) Pulmonary contusion Current Visit: Yes Status: Acute Assessment and Plan: Likely secondary to fall as seen on chest x-ray. Patient does not exhibit signs of infection. Pain management as needed Continue to monitor respiratory status (8) Diastolic CHF, chronic Current Visit: No Status: Chronic Assessment and Plan: not in exacerbation DVT Prophylaxis: SCD - Summary of Assessment and Plan Summary of Assessment and Plan: History of present illness: Dr. Seals Ms. Alanis is a 53 year old female Patient presented to the emergency room after experiencing a fall at home. She states that she was walking upstairs when her left leg gave out and she fell onto her right elbow and then onto her right shoulder. She denies hitting her head and losing consciousness. After she fell she was unable to get up, her hus band who was home with her at the time was also unable to assist her due to history of stage IV cancer, and therefore EMS was called and patient was brought to the hospital. In the emergency room patient's CBC showed a hemoglobin of 17.7 which is around her baseline, white count 6.8 and platelets 166. Patient's INR was 1.3, sodium 134, renal function within normal limits. Patient's blood glucose was 414. A head CT was ordered that showed no acute intracranial abnormality with unchanged partially calcified extra-axial mass along the left frontal convexity most compatible with a meningioma. A chest x-ray 3 view showed no evidence of acute displaced right rib fracture but did show patchy right lower lobe airspace disease and small right pleural effusion thought to be related to pulmonary contusion. Shoulder x-ray was done that showed a fracture dislocation at the right shoulder. A shoulder CT was done that showed acute and displaced fracture of the proximal humerus centered at the surgical neck and extending into the greater and lesser tuberosities. There is inferior subluxation of the humeral head in relation to the glenoid likely related to a large hemarthrosis. Emergency room physician called on-call orthopedic surgery, Dr. Phillips, who agreed to see the patient in consult. Patient was sent to the medical floor for further management. Upon my evaluation, patient states that she is still having some right shoulder pain. She says that she has been having issues with her leg giving out from multiple years. She is currently on Eliquis for atrial fibrillation. She denies nausea, vomiting, diarrhea, constipation, chest pain, abdominal pain and shortness of breath. Her right arm has been placed in a sling at this point. While she does have a history of falls, she is never broken a bone before this. - Time Spent with Patient Total time spent is greater than 50% in coordination of care (as documented) at patient's floor/unit and/or counseling patient: less than 15 minutes Plan of Care Discussed with: patient Internal Medicine: Result - Labs CBC & Chem 7: 01/01/19 05:10 01/01/19 05:10 - ABG Interpretation ABG results: PT/INR, D-dimer PT 14.1 Seconds (9.4-12.1) H 01/01/19 05:10 - Impressions Impressions Chest X-Ray 01/01/19 16:18 IMPRESSION: 1. Stable pulmonary vascular congestion with small bilateral pleural effusions and associated bibasilar atelectasis. D/ / 01/01/2019 18:12:17 Ramón Finn MD / mague Interpreting Provider: Ramón Finn MD - VTE Documentation of Mechanical Device: Intermittent pneumatic compression device Consult Discharge Plan - Plan Referrals: Iliana Almaguer MD [Primary Care Provider] - (1) CAD (coronary artery disease) Qualifiers: Coronary Disease-Associated Artery/Lesion type: [place] artery [place] vs. transplanted heart: [place] heart Associated angina: angina presence unspecified Qualified Code(s): I25.10 - Atherosclerotic heart disease of [place] coronary artery without angina pectoris (2) Proximal humeral fracture Qualifiers: Encounter type: initial encounter Fracture type: closed Fracture morphology: unspecified fracture morphology Laterality: right Qualified Code(s): S42.201A - Unspecified fracture of upper end of right humerus, initial encounter for closed fracture (3) Atrial fibrillation Qualifiers: Atrial fibrillation type: paroxysmal Qualified Code(s): I48.0 - Paroxysmal atrial fibrillation (4) Fall Qualifiers: Encounter type: initial encounter Qualified Code(s): W19.XXXA - Unspecified fall, initial encounter (7) Pulmonary contusion Qualifiers: Encounter type: initial encounter Laterality: right Qualified Code(s): S27.321A - Contusion of lung, unilateral, initial encounter
[2019-01-02] MEDS ORDERED: Bupivacaine-MPF 0.25% 10 ML VIAL ONE (14:26)
[2019-01-02] MEDS ORDERED: ROPIVACAINE HCL/PF 0.5% 30 ML VIAL ONE (14:26)
[2019-01-02] MEDS ORDERED: *HR* FentaNYL (PF) 100 MCG/2 ML VIAL ONE ×2 (14:26→14:41)
[2019-01-02] MEDS ORDERED: *HR* Propofol 200 MG/20 ML VIAL IVP ONE ×2 (14:42→16:19)
[2019-01-02] MEDS ORDERED: *HR* Midazolam HCl 2 MG/2 ML VIAL ONE (14:42)
[2019-01-02] MEDS ORDERED: Ondansetron 4 MG/2 ML VIAL ONE (14:43)
[2019-01-02] MEDS ORDERED: Lidocaine -MPF 2% 2 ML VIAL ONE (14:43)
[2019-01-02] MEDS ORDERED: Dexamethasone 4 MG/ML VIAL ONE (14:43)
[2019-01-02] MEDS ORDERED: *HR* Succinylcholine 200 MG/10 ML VIAL IVP ONE (14:43)
--- NOTE | 2019-01-02 14:59 | Anesthesia Procedures ---
Date of Encounter: 01/02/19 Time of Encounter: 14:00 Procedures: Anesthesia - Nerve Block Procedure Date: 01/02/19 Time: 14:35 Pre-op Diagnosis: Fracture Rt Humerus Surgical Procedure: Total Shoulder Replacement Checklist: Correct Patient Identifier Correct side: Right Blood Thinner: No Monitor Applied: EKG, BP, Pulse Oximetry Supplemental Oxygen via Nasal Cannula (L/min): 2 Sedation: Versed (mg): 2 Sedation: Fentanyl (mcg): 100 Indication: Post Op Analgesia Pre-op Neuro Deficits: No Block Type: Supraclavicular Catheter placed: No Depth at skin (cm): 2 Sterile Technique: Yes Ultrasound used: Yes Anatomy identified: Yes Visual spread of Local: Yes Neuro Stimulation: No Blood on Needle Aspiration: No Smooth Injection of Local: Yes Pain with Injection of Local: No Prep: Chlorhexadine Needle: 22 x 50 mm Stimuplex Local: Ropivacaine Volume (cc): 30 Number of Attempts: 1 Complications: None/effective block, Significant hemodynamic change Vitals: Vital Signs/O2 Sat/Glucose, Most Current Pulse BP Pulse Ox 01/02/19 14:43 66 106/64 92 01/02/19 14:18 66 134/82 94
[2019-01-02] MEDS ORDERED: Albuterol 2.5 MG/3 ML NEBULIZER ONE (15:21)
[2019-01-02] MEDS ORDERED: Ethanol\\Acetic Acid\\Na Ace\\Ben 1,000 ML IRRIG.SOLN IR ONE (15:23)
[2019-01-02] MEDS ORDERED: Ondansetron 4 MG/2 ML VIAL IVP ONE (15:36)
[2019-01-02] MEDS ORDERED: *HR* OxyCODONE Immed Rel 5 MG TABLET PO PRN (15:36)
[2019-01-02] MEDS ORDERED: *HR* PHENYLEPHRINE 1,000 MCG/10 ML SYRINGE IVP ONE (15:51)
[2019-01-02] MEDS ORDERED: *HR* Vasopressin 20 UNIT/ML VIAL ONE (16:03)
[2019-01-02] MEDS ORDERED: EPHEDrine 50 MG/ML VIAL ONE (16:06)
--- NOTE | 2019-01-02 16:24 | Orthopedic Operative Note ---
Date of procedure: 01/02/19 Pre-op diagnosis: Fracture dislocation right shoulder Post-op diagnosis: same Procedure: Procedure: Reverse total shoulder replacment, right Estimated blood loss: 50 cc Hardware: Metal and polyethylene replacement Arthrex 24, +4, 25 mm screw, glenoid baseplate: , 4 locking 5.5 screw, glenosphere: 39+4, 7 humeral stem: 3 poly insert: Procedural Notes: Patient with a displaced fracture dislocation right proximal humerus Operative procedure: The patient was brought to the operating room and placed on the operating room table. After general anesthesia was administered the operative shoulder was examined. Findings were noted. The patient was placed in the modified beachchair position. All pressure points were padded appropriately. And the head was stabilized in the neutral position. The operative extremity was prepped and draped in the sterile surgical fashion. The patient received IV antibiotics prior to skin incision. A standard deltopectoral approach was made to the operative shoulder. Incision was made to the skin and subcutaneous tissue,hemo stasis was obtained with Bovie cautery. Using careful blunt dissection the cephalic vein was identified and mobilized medially. The deltopectoral interval was developed and the clavipectoral fascia was incised. The patient shoulder was dislocated humeral head was fractured along the surgical neck and had a split. The humeral head was removed. Anterior and posterior Bankart retractors were placed to expose the glenoid. The glenoid guide was seated and the centering hole was made. It was reamed with the appropriate reamer. The 24, +4, 25 mm screw, baseplate was seated and secured with 4 locking 5.5 screw. The baseplate was irrigated and dried and the appropriate 39+4 seated and secured with the Armendariz taper and central screw. The humerus was redislocated and prepared with the diaphyseal reamers, followed by a broaching process up to the appropriate size 7 in 20 degrees of retro-version. Trial reduction found the shoulder to be relocatable. Trial components were removed. The real humeral component was impaced in place in 20 degrees of retroversion. Trial reduction found the shoulder to be relocatable and stable with the appropriate 3 constrained. Trial component was removed and the real implant was seated and secured the shoulder was reduced. Patient had excellent stability The deep tissue was irrigated with pulse irrigation. The deltopectoral interval was closed with a running #1 PDS suture, subcutaneous tissue was irrigated and closed with 0 PDS suture, the skin was closed with Dermabond. The patient was placed in a sterile dressing, abduction brace and extubated. The patient was then transferred to the recovery room in stable condition. Anesthesia: GETA Surgeon: Philippe Delvalel Was there an back office medical assistant present: No Estimated blood loss (cc): 50 Condition: stable Disposition: PACU
--- NOTE | 2019-01-02 17:02 | Anesthesia Evaluation Post Op ---
Date of Encounter: 01/02/19 Time of Encounter: 16:57 - Discharge PostOp Status: Transfer Patient to floor (Patient's vital signs have been reviewed. Patient is stable postoperatively and has adequately recovered from anesthesia. Patient is determined to have stable airway patency and respiratory function including respiratory rate and oxygen saturation. Patient has a stable heart rate, blood pressure and adequate hydration. Patients mental status is acceptable. Patients temperature is appropriate. Pain and nausea are adequately controlled.)
[2019-01-02 17:09] LABS: Mean Corpuscular Hemoglobin 25.8 pg (28.0-33.3); Segmented Neutrophils % 80.9 %
[2019-01-02 17:11] LABS: Basophils # 0.1 K/mcL (0.0-0.2); Basophils % 0.5 %; Eosinophils % 0.2 %; Hematocrit 54.1 % (35.3-44.9); Hemoglobin 16.8 g/dL (11.5-15.4); Immature Granulocytes % 0.7 % (0-4); Immature Platelets 4.3 % (1.1-6.1); Lymphocytes # 1.2 K/mcL (0.6-4.6); Lymphocytes % 10.8 %; Mean Corpuscular HGB Conc 31.1 g/dL (31.6-35.5); Mean Corpuscular Volume 83.1 fL (83.0-100.0); Mean Platelet Volume 10.3 fL (9.4-12.4); Monocytes # 0.8 K/mcL (0.0-1.3); Monocytes % 6.9 %; Neutrophils # 9.3 K/mcL (1.6-8.9); Platelet Count 202 K/mcL (140-400); Red Blood Count 6.51 M/mcL (3.82-4.97); Red Cell Distribution Width 22.6 % (11.5-14.5)
[2019-01-02 17:23] LABS: BUN/Creatinine Ratio 30 (6-26); Blood Urea Nitrogen 20 mg/dL (6-20); Calcium 9.3 mg/dL (8.6-10.3); Carbon Dioxide 23 mEq/L (23-29); Chloride 104 mEq/L (98-107); Glucose 232 mg/dL (70-105); Osmolality,Calculated 292 (280-300); Potassium 4.3 mEq/L (3.5-5.1); Sodium 136 mEq/L (136-145); eGFR For Non-African Americans > 60 (> 60)
[2019-01-02 17:41] LABS: Large Platelets Present (Not Present)
[2019-01-02] MEDS ORDERED: Ringers Solution, Lactated 1,000 ML IVC SCH (18:15)
[2019-01-03] MEDS: Insulin LISPRO 300 UNITS/3 ML VIAL SQ SCH ×3 (00:45→12:36)
[2019-01-03 03:41] LABS: Basophils % 0.2 %; Hemoglobin 16.5 g/dL (11.5-15.4)
[2019-01-03 03:43] LABS: Hematocrit 51.1 % (35.3-44.9); Immature Granulocytes % 0.4 % (0-4); Immature Platelets 4.6 % (1.1-6.1); Lymphocytes # 0.8 K/mcL (0.6-4.6); Lymphocytes % 5.4 %; Mean Corpuscular HGB Conc 32.3 g/dL (31.6-35.5); Mean Corpuscular Hemoglobin 25.8 pg (28.0-33.3); Mean Platelet Volume 10.7 fL (9.4-12.4); Monocytes % 6.6 %; Neutrophils # 13.4 K/mcL (1.6-8.9); Platelet Count 186 K/mcL (140-400); Red Blood Count 6.39 M/mcL (3.82-4.97); Red Cell Distribution Width 22.4 % (11.5-14.5); Segmented Neutrophils % 87.4 %
[2019-01-03 03:49] LABS: BUN/Creatinine Ratio 35 (6-26); Blood Urea Nitrogen 23 mg/dL (6-20); Calcium 9.3 mg/dL (8.6-10.3); Carbon Dioxide 26 mEq/L (23-29); Chloride 103 mEq/L (98-107); Glucose 313 mg/dL (70-105); Osmolality,Calculated 296 (280-300); Potassium 4.6 mEq/L (3.5-5.1); Sodium 135 mEq/L (136-145); eGFR For Non-African Americans > 60 (> 60)
[2019-01-03 04:10] LABS: Platelet Estimate Normal (Normal); Reactive Lymphocytes Present (Not Present)
[2019-01-03] MEDS: OXYCODONE Oral CONC 10 MG/0.5 ML ORAL.SYG SL PRN ×3 (05:27→14:23)
[2019-01-03] MEDS ORDERED: traMADol 50 MG TABLET PO ONE (06:22)
[2019-01-03] MEDS: Budesonide/Formoterol 160/4.5 1 PUFF INH IH SCH (07:05)
--- NOTE | 2019-01-03 08:30 | Orthopedics Progress Note ---
Date of Encounter: 01/03/19 Time of Encounter: 08:30 - Assessment and Plan (1) Status post total replacement of right shoulder Current Visit: Yes Status: Acute Stable postop Ok for discharge from ortho perspective with the following orders: - Continue in brace at all times, remove for hygeine only - NO SHOULDER MOTION - Elbow and wrist ROM only - Nonweightbearing to the RUE - Leave Zipline and honeycomb dressing in place. If saturation greater than 50% or soiling occurs, remove and replace with similar dressing and contact [facility]. - Keep outpatient follow up as scheduled, contact sooner if any questions or concerns *Regarding Eliquis - discussed with Dr. Mook ross's dose (2) Proximal humeral fracture Current Visit: Yes Status: Acute Qualifiers: Encounter type: initial encounter Fracture type: closed Fracture morphology: unspecified fracture morphology Laterality: right Qualified Code(s): S42.201A - Unspecified fracture of upper end of right humerus, initial encounter for closed fracture Subjective Principal diagnosis: s/p r TSR reverse Interval history: Date of procedure: 01/02/19 Pre-op diagnosis: Fracture dislocation right shoulder Post-op diagnosis: same Procedure: Procedure: Reverse total shoulder replacment, right Patient seen at bedside POD#1 Right total shoulder replacement, reverse Patient has been having some chest pain and per patient, aching to the Right shoulder. R/o ACS performing by hospitalist team Patient denies numbness and tingling to the RUE new since surgery. Admits to ongoing neuropathy pain per patient. Patient resting comfortably supine in bed RUE in slingshot sling with pillow as directed Ecchymosis and swelling noted to right shoulder Incision and dressing c/d/i Right wrist and hand ROM intact, Marketing Director strength intact Stable postop Ok for discharge from ortho perspective with the following orders: - Continue in brace at all times, remove for hygeine only - NO SHOULDER MOTION - Elbow and wrist ROM only - Nonweightbearing to the RUE - Leave Zipline and honeycomb dressing in place. If saturation greater than 50% or soiling occurs, remove and replace with similar dressing and contact [facility]. - Keep outpatient follow up as scheduled, contact sooner if any questions or concerns *Regarding Eliquis - discussed with Dr. Mook ross's dose Objective Vital signs: Vital Signs Temp Pulse Resp BP Pulse Ox 01/03/19 07:42 97.3 F L 73 19 165/78 95 01/03/19 05:15 98.3 F 67 16 161/85 96 01/02/19 23:50 98.2 F 96 16 137/76 95 01/02/19 20:40 97.8 F 64 16 145/82 96 01/02/19 20:00 98.1 F 87 115/66 91 01/02/19 18:42 97.9 F 85 20 120/69 92 01/02/19 17:40 97.8 F 84 16 94/61 95 01/02/19 17:03 97.9 F 79 16 99/56 93 01/02/19 16:54 82 16 102/51 93 01/02/19 16:44 84 14 99/60 93 01/02/19 16:34 98.1 F 85 16 103/78 93 01/02/19 15:01 61 108/61 94 01/02/19 14:43 66 106/64 92 01/02/19 14:18 66 134/82 94 01/02/19 10:57 97.8 F 64 18 150/71 95 01/02/19 09:27 96.6 F L 77 17 147/74 93 Intake and Output 01/02/19 01/03/19 01/03/19 23:59 07:59 15:59 Intake Total 300 / 300 Output Total 50 / 50 200 / 200 Balance -50 / -50 100 / 100 Intake: Oral 300 / 300 Output: Urine 200 / 200 Estimated Blood Loss 50 / 50 Other: Blood Glucose* 230 333 - Labs CBC & BMP: 01/03/19 03:19 01/03/19 03:19 Labs: Abnormal lab results WBC 15.3 K/mcL (4.3-11.1) H 01/03/19 03:19 RBC 6.39 M/mcL (3.82-4.97) H 01/03/19 03:19 Hgb 16.5 g/dL (11.5-15.4) H 01/03/19 03:19 Hct 51.1 % (35.3-44.9) H 01/03/19 03:19 MCV 80.0 fL (83.0-100.0) L 01/03/19 03:19 MCH 25.8 pg (28.0-33.3) L 01/03/19 03:19 RDW 22.4 % (11.5-14.5) H 01/03/19 03:19 Neutrophils # 13.4 K/mcL (1.6-8.9) H 01/03/19 03:19 Reactive Lymphocytes Present (Not Present) A 01/03/19 03:19 Large Platelets Present (Not Present) A 01/02/19 16:52 PT 14.1 Seconds (9.4-12.1) H 01/01/19 05:10 VBG pO2 183 mmHg (25-50) H 01/01/19 16:41 VBG HCO3 30 mEq/L (21-27) H 01/01/19 16:41 Sodium 135 mEq/L (136-145) L 01/03/19 03:19 BUN 23 mg/dL (6-20) H 01/03/19 03:19 BUN/Creatinine Ratio 35 (6-26) H 01/03/19 03:19 Glucose 313 mg/dL (70-105) H 01/03/19 03:19 POC Glucose 333 mg/dL (70-99) H 01/03/19 00:41 - VTE Documentation of Mechanical Device: Intermittent pneumatic compression device Consult Discharge Plan - Plan Additional Instructions: Discharge Instructions: Total Shoulder Please call [facility] ([phone]), your Primary Care Physician, or report to the Emergency Room if you have any of the following symptoms: Nausea, vomiting, fever greater that 101.5, swelling, chest pain, shortness of breath, increased pain/redness/drainage/odor for your incision site, numbness/tingling, or any other concerning symptoms. ACTIVITY: Always keep your arm in the sling. Do not raise your arm away from your body. Do not use your arm to help with getting in or out of bed. No weigh t bearing permitted. Only perform those exercises given to you by your therapist. Incentive Spirometer 10 times an hour. MEDICATIONS: Upon discharge resume your home medications. Take all the medications as prescribed. Take a stool softener if taking narcotic pain medications. Stool softeners are only effective if you drink enough fluids. Drink 6-8 glass of water or fluids a day, unless this is not allowed for another health problem. Despite using stool softeners, if you haven't had a bowel movement in 3 days, please switch to a gentle laxative. Gentle laxatives are sold over the counter. You should have a bowel movement within 24 hours, if not call the office. You will be discharged from the hospital with a prescription for pain medication. You are encouraged to decrease the use of narcotic pain medication as tolerated. Should you require a refill, please call the office. [facility] prescribes narcotic pain medication for only 4-6 weeks after surgery. If you require pain medication beyond this time period, you may be referred to your Primary Care Physician or to the Pain Clinic for further evaluation. Plan ahead for refills on pain medication as many narcotics either need to be picked up at the office or mailed. It is best to call 48-72 hours in advance of needing a prescription refill so you don't run out of medication. To help control the post-operative pain, you may take NSAIDs (Aleve,Advil, Motrin, Ibuprofen, Naprosyn) or Tylenol as prescribed on the bottle in addition to the pain medication. WOUND CARE: Leave the dressing on for 7-10 days. You may change the dressing if it becomes saturated greater than 50%. Do not get the dressing wet at anytime. Wash your hands with antibacterial soap, rinse and dry prior to any wound care. If you have michi the visiting nurse or rehab facility can remove the stapes 10-14 days after surgery and place steri-strips across the wound. Leave the steri-strips in place until they fall off on their own. You may let water from the shower run on top of the steri-strips. If you do not have a visiting nurse or rehab facility, you will need to return to the office at 10-14 days for the michi to be removed. If you have itching or redness around the dressing call the office. FOLLOW-UP: Please follow up with your surgeon in the orthopedic clinic, as scheduledPlease resume your home medications. Please follow-up with your primary care physician within one week. Please follow-up with Dr. Delvalle as scheduled. Please take your pain medication as directed. Please return for any new or worsening symptoms. Referrals: Philippe Delvalle MD [Partnered Physician] - (1 week) Iliana Almaguer MD [Primary Care Provider] - (1 week)
[2019-01-03] MEDS: Nicotine 21 MG PATCH.TD24 TD SCH (09:54)
[2019-01-03] MEDS: Aspirin Enteric Coated 81 MG Tablet PO SCH (09:56)
[2019-01-03] MEDS: Bumetanide 1 MG TABLET PO SCH (09:56)
[2019-01-03] MEDS: Loratadine 10 MG TABLET PO SCH (09:57)
[2019-01-03] MEDS: Isosorbide MONOnitrate (24 HR) 60 MG TAB.ER.24H PO SCH (09:57)
[2019-01-03] MEDS: Pregabalin 50 MG CAPSULE PO SCH (09:58)
[2019-01-03] MEDS: Baclofen 10 MG TABLET PO SCH (09:58)
[2019-01-03] MEDS: Acetaminophen 325 MG TABLET PO SCH (09:59)
[2019-01-03] MEDS: Topiramate 25 MG TABLET PO SCH (09:59)
[2019-01-03] MEDS: Famotidine 20 MG TABLET PO SCH (09:59)
[2019-01-03] MEDS: (Umeclidinium Bromide [Incruse Ellipta] 1 PUFF) IH SCH (10:44)
--- NOTE | 2019-01-03 11:34 | Discharge Summary ---
- NOTES TO OUTPATIENT PROVIDER Notes to Outpatient Provider: Status post shoulder replacement after a fall. Orders not resulted at time of discharge: Pending orders 12/31/18 19:59 Culture,Blood [BC] Stat 01/01/19 16:18 Sputum Culture [Culture,Sputum with Gram Stain] [RM] Routine 01/02/19 07:00 NM sejal perf SPECT multi [NM] Routine 01/02/19 14:13 US anesthesia pain block [US] Routine 01/02/19 16:47 Surgical Pathology [PTH] Routine 01/03/19 14:00 Troponin I Timed 01/04/19 04:00 BMP [Basic Metabolic Panel] AM 0400 CBC [Complete Blood Count] [HEME] AM 0400 01/05/19 04:00 BMP [Basic Metabolic Panel] AM 0400 CBC [Complete Blood Count] [HEME] AM 0400 Date of Encounter: 01/03/19 Time of Encounter: 11:31 - Discharge Diagnosis (1) Fall Priority: Primary Status: Acute Qualifiers: Encounter type: initial encounter Qualified Code(s): W19.XXXA - Unspecified fall, initial encounter (2) Proximal humeral fracture Priority: Primary Status: Acute Qualifiers: Encounter type: initial encounter Fracture type: closed Fracture morphology: unspecified fracture morphology Laterality: right Qualified Code(s): S42.201A - Unspecified fracture of upper end of right humerus, initial encounter for closed fracture (3) Pulmonary contusion Priority: Secondary Status: Suspected Qualifiers: Encounter type: initial encounter Laterality: right Qualified Code(s): S27.321A - Contusion of lung, unilateral, initial encounter (4) Insulin dependent diabetes mellitus Priority: Secondary Status: Chronic (5) CAD (coronary artery disease) Priority: Secondary Status: Chronic Qualifiers: Coronary Disease-Associated Artery/Lesion type: [place] artery [place] vs. transplanted heart: [place] heart Associated angina: angina presence unsp ecified Qualified Code(s): I25.10 - Atherosclerotic heart disease of [place] coronary artery without angina pectoris (6) Atrial fibrillation Priority: Secondary Status: Chronic Qualifiers: Atrial fibrillation type: paroxysmal Qualified Code(s): I48.0 - Paroxysmal atrial fibrillation (7) Diastolic CHF, chronic Priority: Secondary Status: Chronic (8) High hematocrit Priority: Secondary Status: Acute Hospital course: Ms. Alanis is a 53 year old female with history of coronary disease, COPD, atrial fibrillation presented with mechanical fall. She was found to have a proximal right humerus fracture. Patient was seen by orthopedic surgery who recommended reversed total shoulder replacement. She underwent cardiac clearance including cardiac stress testing that was negative for any ischemia or infarct. Patient then underwent total right shoulder surgery and seems to be recovering well. She does have some postoperative pain but this is relatively well controlled by pain medication. Patient did have some "chest pain" on the day of discharge however this was most likely related to referred shoulder pain. EKG was performed which was unchanged from her preoperative EKG and stress test this admission was unremarkable making cardiac chest pain less likely. Patient was offered ECF placement however she adamantly refused. She will be discharged home with home health in stable condition. Discharge discussed with: patient - Time Spent with Patient Total time spent providing and/or coordinating discharge services: - Discharge Medications Prescriptions: Continue Pregabalin [Lyrica] 100 mg PO BID Citalopram [CeleXA] 20 mg PO DAILY Albuterol Sulfate [Albuterol Inhaler] 2 puff IH Q4H PRN PRN Reason: Shortness Of Breath Oxygen 3 l NS AD Albuterol Neb [Proventil Neb] 2.5 mg IH Q6H PRN PRN Reason: Dyspnea Pantoprazole Sodium [Protonix] 40 mg PO DAILY Nitroglycerin [Nitrostat] 0.4 mg SL Q5M PRN PRN Reason: Chest Pain Aspirin Enteric Coated [Aspirin EC] 81 mg PO DAILY tablet. Isosorbide MONOnitrate [Isosorbide Mononitrate ER] 120 mg PO DAILY Apixaban [Eliquis] 5 mg PO BID #60 tablet raNITIdine HCl [Zantac] 150 mg PO BID Bumetanide [Bumex] 1 mg PO DAILY Topiramate 50 mg PO BID Umeclidinium [place] [Incruse Ellipta] 1 puff IH DAILY Loratadine [Claritin] 10 mg PO DAILY Baclofen [Lioresal] 10 mg PO BID Montelukast [Singulair] 10 mg PO DAILY Insulin ASPART [Novolog Flexpen] 1 - 30 unit SQ TID Atorvastatin [Lipitor] 80 mg PO HS Insulin Degludec [Tresiba Flextouch U-100] 80 unit SQ QAM Budesonide/Formoterol 160/4.5 [Symbicort 160/4.5] 2 puff IH BIDR Acetaminophen [Tylenol Arthritis] 1,300 mg PO QAM Loperamide HCl [Imodium A-D] 4 mg PO Q8HR PRN PRN Reason: Diarrhea Metoprolol [Lopressor] 25 mg PO BID SUMAtriptan succinate [Imitrex] 50 mg PO AD PRN PRN Reason: Migraine Headache Home Medications: Pregabalin [Lyrica] 100 mg PO BID 06/30/15 [History] Citalopram [CeleXA] 20 mg PO DAILY 08/09/15 [History] Albuterol Neb [Proventil Neb] 2.5 mg IH Q6H PRN 04/17/16 [History] Albuterol Sulfate [Albuterol Inhaler] 2 puff IH Q4H PRN 04/17/16 [History] Oxygen 3 l NS AD 04/17/16 [History] Pantoprazole Sodium [Protonix] 40 mg PO DAILY 04/17/16 [History] Nitroglycerin [Nitrostat] 0.4 mg SL Q5M PRN 02/13/17 [History] Aspirin Enteric Coated [Aspirin EC] 81 mg PO DAILY tablet. 02/15/17 [Rx] Isosorbide MONOnitrate [Isosorbide Mononitrate ER] 120 mg PO DAILY 02/27/17 [History] Apixaban [Eliquis] 5 mg PO BID #60 tablet 03/01/17 [Rx] raNITIdine HCl [Zantac] 150 mg PO BID 06/15/17 [History] Bumetanide [Bumex] 1 mg PO DAILY 07/31/17 [History] Topiramate 50 mg PO BID 07/31/17 [History] Loratadine [Claritin] 10 mg PO DAILY 12/18/17 [History] Umeclidinium [place] [Incruse Ellipta] 1 puff IH DAILY 12/18/17 [History] Baclofen [Lioresal] 10 mg PO BID 02/07/18 [History] Atorvastatin [Lipitor] 80 mg PO HS 11/21/18 [History] Insulin ASPART [Novolog Flexpen] 1 - 30 unit SQ TID 11/21/18 [History] Insulin Degludec [Tresiba Flextouch U-100] 80 unit SQ QAM 11/21/18 [History] Montelukast [Singulair] 10 mg PO DAILY 11/21/18 [History] Acetaminophen [Tylenol Arthritis] 1,300 mg PO QAM 12/25/18 [History] Budesonide/Formoterol 160/4.5 [Symbicort 160/4.5] 2 puff IH BIDR 12/25/18 [History] Loperamide HCl [Imodium A-D] 4 mg PO Q8HR PRN 12/25/18 [History] Metoprolol [Lopressor] 25 mg PO BID 12/28/18 [History] SUMAtriptan succinate [Imitrex] 50 mg PO AD PRN 01/01/19 [History] Allergies/Adverse Reactions: Allergy/AdvReac Type Severity Reaction Status Date / Time amylase [From Creon] AdvReac Diarrhea Verified 12/18/18 13:43 estrogens, conjugated AdvReac Anxiety Verified 12/18/18 13:43 [From Premarin] hydrocodone [From Vicodin] AdvReac Anxiety Verified 12/18/18 13:43 lipase [From Creon] AdvReac Diarrhea Verified 12/18/18 13:43 metronidazole [From Flagyl] AdvReac See Verified 12/18/18 13:43 Comments protease [From Creon] AdvReac Diarrhea Verified 12/18/18 13:43 tetracycline [Tetracycline] AdvReac Anxiety Verified 12/18/18 13:43 Date of admission: 01/01/19 09:02 Primary care physician: Iliana Almaguer MD Consults: 12/31/18 19:30 Consult to Orthopedic Surgery [CONS] Stat Consulting Provider: [facility] Reason for Consult: Right shoulder dislocation w/proximal humeral fx Time Notified: 19:31 Call Completed: No 01/01/19 11:39 Consult to Cardiology [CONS] Routine Comment: Consulting Provider: [facility] [place] Reason for Consult: preop clearance Time Notified: 11:40 Call Completed: Yes Discharging clinician: Anup Campo Anticipated date of discharge: 01/03/19 - Constitutional Vitals: Temp Pulse Resp BP Pulse Ox 97.3 F L 73 19 165/78 95 01/03/19 07:42 01/03/19 07:42 01/03/19 07:42 01/03/19 07:42 01/03/19 07:42 General appearance: Present: cooperative, A&O X 3, pleasant, answers questions appropriately Exam: . - Respiratory Respiratory exam: Present: decreased breath sounds. Absent: rales, rhonchi, wheezes - Cardiovascular Cardiovascular exam: Present: RRR. Absent: gallop, rubs, systolic murmur - Extremities Exam Additional comments: Right shoulder sling with with cool pack applied - Patient Status Disposition: Home Health Service Condition: Fair Functional capacity at discharge: independent ambulation Overall status at discharge: patient is progressing back to baseline - Discharge Instructions Follow Up With: Iliana Almaguer MD [Primary Care Provider] - (1 week) Philippe Delvalle MD [Partnered Physician] - (1 week) Additional Instructions: Please resume your home medications. Please follow-up with your primary care physician within one week. Please follow-up with Dr. Delvalle as scheduled. Please take your pain medication as directed. Please return for any new or worsening symptoms. - Diet and Activity Activity: increase activity as tolerated, wear oxygen at all times Diet: diabetic diet, low salt diet - VTE Documentation of Mechanical Device: Intermittent pneumatic compression device
--- NOTE | 2019-01-03 11:42 | Physician Discharge Referral ---
Home Health/Hosp Referral Info Transfer to: Home Health Provider in Charge Post Discharge: PCP - Diagnosis (1) Fall Priority: Primary Status: Acute (2) Proximal humeral fracture Priority: Primary Status: Acute (3) Pulmonary contusion Priority: Secondary Status: Suspected (4) Insulin dependent diabetes mellitus Priority: Secondary Status: Chronic (5) CAD (coronary artery disease) Priority: Secondary Status: Chronic (6) Atrial fibrillation Priority: Secondary Status: Chronic (7) Diastolic CHF, chronic Priority: Secondary Status: Chronic (8) High hematocrit Priority: Secondary Status: Acute - Respiratory Orders Oxygen / L per min (3) Smoking Cessation: Smoking cessation has been advised. For more information, call the [place] Tobacco Quit Line at 4-558-NYRV-NOW. - Diet/Nutrition Diet/Nutrition Orders: Cardiac, No Concentrated Sweets - Activity Activity Orders: Ambulate - Services Needed Following services are medically necessary services: Nursing, Home Health Aide, Physical Therapy, Occupational Therapy - Transfer Medications Home Medications: Pregabalin [Lyrica] 100 mg PO BID 06/30/15 [History] Citalopram [CeleXA] 20 mg PO DAILY 08/09/15 [History] Albuterol Neb [Proventil Neb] 2.5 mg IH Q6H PRN 04/17/16 [History] Albuterol Sulfate [Albuterol Inhaler] 2 puff IH Q4H PRN 04/17/16 [History] Oxygen 3 l NS AD 04/17/16 [History] Pantoprazole Sodium [Protonix] 40 mg PO DAILY 04/17/16 [History] Nitroglycerin [Nitrostat] 0.4 mg SL Q5M PRN 02/13/17 [History] Aspirin Enteric Coated [Aspirin EC] 81 mg PO DAILY tablet. 02/15/17 [Rx] Isosorbide MONOnitrate [Isosorbide Mononitrate ER] 120 mg PO DAILY 02/27/17 [History] Apixaban [Eliquis] 5 mg PO BID #60 tablet 03/01/17 [Rx] raNITIdine HCl [Zantac] 150 mg PO BID 06/15/17 [History] Bumetanide [Bumex] 1 mg PO DAILY 07/31/17 [History] Topiramate 50 mg PO BID 07/31/17 [History] Loratadine [Claritin] 10 mg PO DAILY 12/18/17 [History] Umeclidinium [place] [Incruse Ellipta] 1 puff IH DAILY 12/18/17 [History] Baclofen [Lioresal] 10 mg PO BID 02/07/18 [History] Atorvastatin [Lipitor] 80 mg PO HS 11/21/18 [History] Insulin ASPART [Novolog Flexpen] 1 - 30 unit SQ TID 11/21/18 [History] Insulin Degludec [Tresiba Flextouch U-100] 80 unit SQ QAM 11/21/18 [History] Montelukast [Singulair] 10 mg PO DAILY 11/21/18 [History] Acetaminophen [Tylenol Arthritis] 1,300 mg PO QAM 12/25/18 [History] Budesonide/Formoterol 160/4.5 [Symbicort 160/4.5] 2 puff IH BIDR 12/25/18 [History] Loperamide HCl [Imodium A-D] 4 mg PO Q8HR PRN 12/25/18 [History] Metoprolol [Lopressor] 25 mg PO BID 12/28/18 [History] SUMAtriptan succinate [Imitrex] 50 mg PO AD PRN 01/01/19 [History] Allergies/Adverse Reactions: Allergy/AdvReac Type Severity Reaction Status Date / Time amylase [From Creon] AdvReac Diarrhea Verified 12/18/18 13:43 estrogens, conjugated AdvReac Anxiety Verified 12/18/18 13:43 [From Premarin] hydrocodone [From Vicodin] AdvReac Anxiety Verified 12/18/18 13:43 lipase [From Creon] AdvReac Diarrhea Verified 12/18/18 13:43 metronidazole [From Flagyl] AdvReac See Verified 12/18/18 13:43 Comments protease [From Creon] AdvReac Diarrhea Verified 12/18/18 13:43 tetracycline [Tetracycline] AdvReac Anxiety Verified 12/18/18 13:43 Certification: Further, I certify that my clinical findings support that this patient is homebound (i.e. absences from home require considerable and taxing effort and are for medical reasons or faith services or infrequently or short duration when for other reasons) because: Homebound Reason: Post-surgery restriction and or conditions limit ability to leave home, Leaving home requires considerable and taxing effort due to condit ion Attestation: My signature below is to certify that this patient is under my care and that I, or nurse practitioner, or a physician's administrative office assistant working with me, has a face -to-face encounter with this patient.
[2019-01-03 12:01] VITALS: BP 178/82
--- NOTE | 2019-01-03 17:40 | Electrocardiograph Report ---
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
[2019-01-03] MEDS ORDERED: Apixaban 5 MG TABLET PO SCH (21:00)
--- NOTE | 2019-01-04 20:02 | Electrocardiograph Report ---
[address] [place] [address] Test Date: 2018-12-31 Pat Name: Milena Alanis Department: [id number] Room: [facility] Gender: F Continuous Improvement Specialist: : [id number] Requested By: Valdo Chisholm Order Number: [id number] Reading MD: Katherine Pierre Measurements Intervals [place] Rate: 56 P: 59 VT: 166 QRS: 84 QRSD: 94 T: -21 QT: 464 QTc: 448 Interpretive Statements Sinus rhythm Probable left atrial enlargement Anteroseptal infarct, age indeterminate Electronically Signed On 01-04-2019 20:01:20 EST by Katherine Pierre
== END 2019-01-03 16:47 | disposition home health service (06) | DRG 483 ==
LOC: EMEROOARM 17:06 → 3NENU 17:06 → SUATTDRO 01-01 09:02
PROVIDERS: ADMIT Pediatrics; ATTEND Internal Medicine

== ENCOUNTER 2019-04-08 08:39 | Inpatient (IN) ==
[2019-04-08] MEDS ORDERED: 0.9 % Sodium Chloride 1,000 ML IVC ONE (08:48)
--- NOTE | 2019-04-08 08:59 | Emergency Department Note ---
Disposition Clinical Impression: Pneumonia Qualifiers: Pneumonia type: due to unspecified organism Laterality: right Lung location: lower lobe of lung Qualified Code(s): J18.1 - Lobar pneumonia, unspecified organism Altered mental status Qualifiers: Altered mental status type: unspecified Qualified Code(s): R41.82 - Altered mental status, unspecified Disposition: Admitted As Inpatient Condition: Good Referrals: NONE,PCP [Primary Care Provider] - Forms: ED Satisfaction Letter Time of Disposition: 10:49 Altered Mental Status HPI - General Chief Complaint: ED Altered Mental Status Stated Complaint: bradychardia, lethergic Time Seen by Provider: 04/08/19 08:41 Source: patient, EMS Mode of arrival: EMS Limitations: no limitations Nursing Notes Reviewed: Yes Vital Signs Reviewed: Yes - History of Present Illness HPI Narrative: 53-year-old female with a history of A. fib, diabetes, hypertension, seizures presents for evaluation of bradycardia and lethargy. Patient's history provided via EMS. EMS was called after the found the patient on the ground this morning. Prodrome states the patient was cleaning a headache last night. EMS reported the patient has altered. Patient denies any specific complaints. No chest pain or shortness of breath. No fevers. No abdominal pain. Upon EMS arrival patient was noted be bradycardic. Patient's blood glucose was unremarkable. There is no family at bedside to provide any additional history. Patient denies any headache. - Related Data Home Medications Medication Instructions Recorded Confirmed Pregabalin [Lyrica] 100 mg PO BID 06/30/15 03/26/19 Albuterol Neb [Proventil Neb] 2.5 mg IH Q6H PRN 04/17/16 03/26/19 Albuterol Sulfate [Albuterol 2 puff IH Q4H PRN 04/17/16 03/26/19 Inhaler] Oxygen 3 l NS AD 04/17/16 03/26/19 Nitroglycerin [Nitrostat] 0.4 mg SL Q5M PRN 02/13/17 03/26/19 Topiramate 50 mg PO BID 07/31/17 03/26/19 Loratadine [Claritin] 10 mg PO DAILY 12/18/17 03/26/19 Umeclidinium [place] [Incruse 1 puff IH DAILY 12/18/17 03/26/19 Ellipta] Baclofen [Lioresal] 10 mg PO TID 02/07/18 03/26/19 Insulin ASPART [Novolog Flexpen] 15 - 25 unit SQ TID 11/21/18 03/26/19 Insulin Degludec [Tresiba 105 unit SQ QAM 11/21/18 03/26/19 Flextouch U-100] Montelukast [Singulair] 10 mg PO DAILY 11/21/18 03/26/19 Acetaminophen [Tylenol Arthritis] 1,300 mg PO QAM 12/25/18 03/26/19 Budesonide/Formoterol 160/4.5 2 puff IH BIDR 12/25/18 03/26/19 [Symbicort 160/4.5] Loperamide HCl [Imodium A-D] 2 - 4 mg PO Q8HR PRN 12/25/18 03/26/19 Metoprolol [Lopressor] 25 mg PO BID 12/28/18 03/26/19 SUMAtriptan succinate [Imitrex] 50 mg PO AD PRN 01/01/19 03/26/19 Citalopram [CeleXA] 20 mg PO DAILY 01/14/19 03/26/19 Isosorbide MONOnitrate [Isosorbide 120 mg PO DAILY 01/14/19 03/26/19 Mononitrate ER] Atorvastatin [Lipitor] 40 mg PO HS 03/26/19 03/26/19 Bumetanide 2 mg PO BID 03/26/19 03/26/19 Potassium Chloride [K-Tab ER] 20 meq PO DAILY 03/26/19 03/26/19 Spironolactone [Aldactone] 25 mg PO DAILY 03/26/19 03/26/19 metOLazone [Zaroxolyn] 2.5 mg PO 2XW 03/26/19 03/26/19 raNITIdine HCl [Zantac] 150 mg PO BID 03/26/19 03/26/19 Previous Rx's Medication Instructions Recorded Aspirin Enteric Coated [Aspirin EC] 81 mg PO DAILY tablet. 02/15/17 Apixaban [Eliquis] 5 mg PO BID #60 tablet 03/01/17 Allergies Allergy/AdvReac Type Severity Reaction Status Date / Time amylase [From Creon] AdvReac Diarrhea Verified 03/21/19 10:49 estrogens, conjugated AdvReac Anxiety Verified 03/21/19 10:49 [From Premarin] hydrocodone [From Vicodin] AdvReac Anxiety Verified 03/21/19 10:49 lipase [From Creon] AdvReac Diarrhea Verified 03/21/19 10:49 metronidazole [From Flagyl] AdvReac See Verified 03/21/19 10:49 Comments protease [From Creon] AdvReac Diarrhea Verified 03/21/19 10:49 tetracycline [Tetracycline] AdvReac Anxiety Verified 03/21/19 10:49 All systems ED: reviewed and negative except as stated. 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 Absent: miosis, mydriasis - ENT ENT exam: normal exam - Neck Neck exam: Present: normal inspection - Chest Chest inspection: Present: normal inspection, symmetric chest wall rise - Respiratory Respiratory exam: Present: other (poor inspiratory respiratory effort). Absent: respiratory distress - Cardiovascular Cardiovascular exam: Present: normal rhythm, bradycardia. Absent: normal heart sounds - Abdominal Exam Abdominal exam: Present: soft, Non-Tender - Extremities Exam Extremities exam: Present: normal inspection. Absent: pedal edema - Back Exam Back exam: Present: normal inspection - Neurological Exam Neurological exam: Present: alert, CN II-XII intact - Expanded Neurological Exam Patient oriented to: Present: person, place Cranial nerves: EOM function (II, III, IV, ): Normal, facial sensation (V): Normal, facial palsy (VII): Normal, spinal accessory function (XI): Normal, ton felecia deviation (XII): Normal Motor strength - LUE: 5/5 Motor strength - RUE: 5/5 Motor strength - LLE: 5/5 Motor strength - RLE: 5/5 Coma Scale Eye Opening: Spontaneous Coma Scale Motor Response: Obeys Commands Coma Scale Verbal Response: Confused Coma Scale Total: 14 - Skin Skin exam: Present: warm, dry, intact, normal color Course - Reevaluation(s) Reevaluation #1: Patient chest x-ray findings as show findings suspicious for pneumonia. Patient was recently admitted OB covered with healthcare associated pneumonia. Blood cultures obtained. Concerns for possible aspiration given the history. Time: 09:21 Reevaluation #2: Patient was found to have a tick buried in her medial left thigh. Appeared to be engorged. There is no erythema. Tick was removed completely intact. This does not appear to be aligned disease cannot take but will order Lyme titers. Time: 10:48 Vital Signs Temperature 97.6 F 04/08/19 08:52 Pulse Rate 49 04/08/19 08:52 Respiratory Rate 13 04/08/19 08:52 Blood Pressure 97/69 04/08/19 08:52 O2 Sat by Pulse Oximetry 92 04/08/19 08:52 Temperature 97.6 F 04/08/19 08:56 Pulse Rate 46 04/08/19 10:23 Respiratory Rate 12 04/08/19 10:23 Blood Pressure 143/66 04/08/19 10:23 O2 Sat by Pulse Oximetry 98 04/08/19 10:23 Oxygen Delivery Oxygen Delivery Nasal Cannula Altered Mental Status - MDM Narrative Medical decision making narrative: Patient presented for concerns of altered mental status. Patient was found on the ground this morning. Patient's chest x-ray does show signs of pneumonia concerns for aspiration and will be covered with healthcare associated antibiotics given history of prior hospitalizations. Patient's ED course included CT of the head as well as basic labs. Labs are clinically unremarkable. Patient does appear hypovolemic and was treated with IV fluids. Patient incidentally was noted to have a tick that was engorged in her left proximal thigh. This does not appear to be a Lyme disease carrying tick but will obtain Lyme titers. Patient does arouse to verbal stimuli. Patient's controlling her airway does not require airway interventions. Patient appears to be not meningitic or encephalitic. Patient will be admitted to ensure symptom resolution. There is no family at bedside providing additional history. Patient has been sinus bradycardia in the ED with preserved blood pressure. Patient is on metoprolol at home and does have prior history of sinus bradycardia based on past vital signs. - Lab Data Lab results reviewed: Yes I reviewed the patient's lab results. Result diagrams: 04/08/19 09:15 04/08/19 09:15 Lab Results 04/08/19 04/08/19 04/08/19 Range/Units 09:15 09:15 09:15 WBC 9.4 (4.3-11.1) K/mcL RBC 5.86 H (3.82-4.97) M/mcL Hgb 16.8 H (11.5-15.4) g/dL Hct 52.6 H (35.3-44.9) % MCV 89.8 (83.0-100.0) fL MCH 28.7 (28.0-33.3) pg MCHC 31.9 (31.6-35.5) g/dL RDW 19.0 H (11.5-14.5) % Plt Count 217 (140-400) K/mcL MPV 10.9 (9.4-12.4) fL Immature Gran % 0.5 (0-4) % Seg Neutrophils % 80.1 % Lymphocytes % 10.8 % Monocytes % 6.6 % Eosinophils % 1.3 % Basophils % 0.7 % Neutrophils # 7.5 (1.6-8.9) K/mcL Lymphocytes # 1.0 (0.6-4.6) K/mcL Monocytes # 0.6 (0.0-1.3) K/mcL Eosinophils # 0.1 (0.0-0.6) K/mcL Basophils # 0.1 (0.0-0.2) K/mcL PT 13.9 H (9.4-12.1) Seconds INR 1.2 Sodium (136-145) mEq/L Potassium (3.5-5.1) mEq/L Chloride (98-107) mEq/L Carbon Dioxide (23-29) mEq/L BUN (6-20) mg/dL Creatinine (0.60-1.20) mg/dL Est GFR ( Amer) (> 60) Est GFR (Non-Af Amer) (> 60) BUN/Creatinine Ratio (6-26) Glucose (70-105) mg/dL Calculated Osmolality (280-300) Lactic Acid (0.5-2.2) mmol/L Calcium (8.6-10.3) mg/dL Total Bilirubin (0.3-1.0) mg/dL Direct Bilirubin (0.0-0.2) mg/dL Indirect Bilirubin (0.0-1.2) mg/dL AST (13-39) Units/L ALT (7-52) Units/L Alkaline Phosphatase (34-104) Units/L Creatine Kinase 41 (30-223) Units/L Serum Total Protein (6.4-8.9) g/dL Albumin (3.5-5.7) g/dL Globulin (2.4-3.5) g/dL Albumin/Globulin Ratio (1.1-2.2) Urine Color (Yellow) Urine Clarity (Clear) Urine pH (5.0-8.0) pH Units Ur Specific [place] (1.010-1.025) Urine Protein (Neg-Trace) mg/dL Urine Glucose (UA) (Normal) mg/dL Urine Ketones (Negative) mg/dL Urine Blood (Negative) Urine Nitrite (Negative) Urine Bilirubin (Negative) Urine Urobilinogen (Normal) mg/dL Ur Leukocyte Esterase (Negative) Ethyl Alcohol (Less than 10) mg/dL 04/08/19 04/08/19 04/08/19 Range/Units 09:15 09:15 10:15 WBC (4.3-11.1) K/mcL RBC (3.82-4.97) M/mcL Hgb (11.5-15.4) g/dL Hct (35.3-44.9) % MCV (83.0-100.0) fL MCH (28.0-33.3) pg MCHC (31.6-35.5) g/dL RDW (11.5-14.5) % Plt Count (140-400) K/mcL MPV (9.4-12.4) fL Immature Gran % (0-4) % Seg Neutrophils % % Lymphocytes % % Monocytes % % Eosinophils % % Basophils % % Neutrophils # (1.6-8.9) K/mcL Lymphocytes # (0.6-4.6) K/mcL Monocytes # (0.0-1.3) K/mcL Eosinophils # (0.0-0.6) K/mcL Basophils # (0.0-0.2) K/mcL PT (9.4-12.1) Seconds INR Sodium 138 (136-145) mEq/L Potassium 3.3 L (3.5-5.1) mEq/L Chloride 101 (98-107) mEq/L Carbon Dioxide 31 H (23-29) mEq/L BUN 52 H (6-20) mg/dL Creatinine 1.18 (0.60-1.20) mg/dL Est GFR ( Amer) 58 L (> 60) Est GFR (Non-Af Amer) 48 L (> 60) BUN/Creatinine Ratio 44 H (6-26) Glucose 149 H (70-105) mg/dL Calculated Osmolality 303 H (280-300) Lactic Acid 1.3 (0.5-2.2) mmol/L Calcium 9.2 (8.6-10.3) mg/dL Total Bilirubin 0.3 (0.3-1.0) mg/dL Direct Bilirubin 0.1 (0.0-0.2) mg/dL Indirect Bilirubin 0.2 (0.0-1.2) mg/dL AST 11 L (13-39) Units/L ALT 6 L (7-52) Units/L Alkaline Phosphatase 92 (34-104) Units/L Creatine Kinase (30-223) Units/L Serum Total Protein 6.3 L (6.4-8.9) g/dL Albumin 3.5 (3.5-5.7) g/dL Globulin 2.8 (2.4-3.5) g/dL Albumin/Globulin Ratio 1.3 (1.1-2.2) Urine Color Yellow (Yellow) Urine Clarity Clear (Clear) Urine pH 6.5 (5.0-8.0) pH Units Ur Specific [place] < 1.005 L (1.010-1.025) Urine Protein Negative (Neg-Trace) mg/dL Urine Glucose (UA) Normal (Normal) mg/dL Urine Ketones Negative (Negative) mg/dL Urine Blood Negative (Negative) Urine Nitrite Negative (Negative) Urine Bilirubin Negative (Negative) Urine Urobilinogen Normal (Normal) mg/dL Ur Leukocyte Esterase Moderate H (Negative) Ethyl Alcohol < 10 (Less than 10) mg/dL - Radiology Data Radiology results reviewed: Yes I reviewed the patient's radiology results. Chest X-Ray 04/08/19 08:50 IMPRESSION: 1. Increasing right basilar airspace opacity suspicious for pneumonia. 2. Slightly increased interstitial opacities which may reflect mild edema. D/ / Valeri Wheeler MD / Valeri Wheeler MD Interpreting Provider: Valeri Wheeler MD Head CT 04/08/19 08:51 IMPRESSION: 1. No acute intracranial abnormality. 2. Cerebral and cerebellar parenchymal volume loss with chronic microvascular white matter ischemic disease. D/ / 04/08/2019 09:42:23 Ramón Finn MD / suzanne Interpreting Provider: Ramón Finn MD - EKG Data EKG attestation: Yes I reviewed and interpreted this EKG. EKG shows normal: sinus rhythm Rate: normal Rhythm: NSR [place]/QRS: normal T wave inversions: III, aVF, v1, v2, v3, v4 When compared to previous EKG there are: changes noted Interpretation: nonspecific ST-T wave changes TPA Checklist - LKW: 3-4.5 hrs Add. Warnings/Precautions Patient/family understanding: The patient/family members have been counseled and understood the risk, benefit, and alternatives of treatment. Ervin - Ervin Situation: Demographics Background: Presenting Complaint Assessment: Vital Signs, Course and respsone to treatment, Patient/Family Expectation Recommendation: Barrier(s) to disposition, Recommendation based on pending studies, treatments, or consults Ervin Report Given to: Hospitalist Ervin Repor Time: 10:49
[2019-04-08] MEDS ORDERED: Piperacillin/Tazobactam 3.375 GM in Water for inj. (sterile) 20 ML 20 ML IVP ONE (09:20)
--- NOTE | 2019-04-08 09:24 | Emergency Department Note ---
Disposition Clinical Impression: Pneumonia Qualifiers: Pneumonia type: due to unspecified organism Laterality: right Lung location: lower lobe of lung Qualified Code(s): J18.1 - Lobar pneumonia, unspecified organism Disposition: Admitted As Inpatient Condition: Good Forms: ED Satisfaction Letter Time of Disposition: 09:24 General Adult HPI - General Chief complaint: ED Altered Mental Status Stated complaint: bradychardia, lethergic Time Seen by Provider: 04/08/19 08:41 Source: patient, EMS Mode of arrival: EMS Limitations: no limitations - History of Present Illness Pain Scale: 0 - Related Data Home Medications Medication Instructions Recorded Confirmed Pregabalin [Lyrica] 100 mg PO BID 06/30/15 03/26/19 Albuterol Neb [Proventil Neb] 2.5 mg IH Q6H PRN 04/17/16 03/26/19 Albuterol Sulfate [Albuterol 2 puff IH Q4H PRN 04/17/16 03/26/19 Inhaler] Oxygen 3 l NS AD 04/17/16 03/26/19 Nitroglycerin [Nitrostat] 0.4 mg SL Q5M PRN 02/13/17 03/26/19 Topiramate 50 mg PO BID 07/31/17 03/26/19 Loratadine [Claritin] 10 mg PO DAILY 12/18/17 03/26/19 Umeclidinium [place] [Incruse 1 puff IH DAILY 12/18/17 03/26/19 Ellipta] Baclofen [Lioresal] 10 mg PO TID 02/07/18 03/26/19 Insulin ASPART [Novolog Flexpen] 15 - 25 unit SQ TID 11/21/18 03/26/19 Insulin Degludec [Tresiba 105 unit SQ QAM 11/21/18 03/26/19 Flextouch U-100] Montelukast [Singulair] 10 mg PO DAILY 11/21/18 03/26/19 Acetaminophen [Tylenol Arthritis] 1,300 mg PO QAM 12/25/18 03/26/19 Budesonide/Formoterol 160/4.5 2 puff IH BIDR 12/25/18 03/26/19 [Symbicort 160/4.5] Loperamide HCl [Imodium A-D] 2 - 4 mg PO Q8HR PRN 12/25/18 03/26/19 Metoprolol [Lopressor] 25 mg PO BID 12/28/18 03/26/19 SUMAtriptan succinate [Imitrex] 50 mg PO AD PRN 01/01/19 03/26/19 Citalopram [CeleXA] 20 mg PO DAILY 01/14/19 03/26/19 Isosorbide MONOnitrate [Isosorbide 120 mg PO DAILY 01/14/19 03/26/19 Mononitrate ER] Atorvastatin [Lipitor] 40 mg PO HS 03/26/19 03/26/19 Bumetanide 2 mg PO BID 03/26/19 03/26/19 Potassium Chloride [K-Tab ER] 20 meq PO DAILY 03/26/19 03/26/19 Spironolactone [Aldactone] 25 mg PO DAILY 03/26/19 03/26/19 metOLazone [Zaroxolyn] 2.5 mg PO 2XW 03/26/19 03/26/19 raNITIdine HCl [Zantac] 150 mg PO BID 03/26/19 03/26/19 Previous Rx's Medication Instructions Recorded Aspirin Enteric Coated [Aspirin EC] 81 mg PO DAILY tablet. 02/15/17 Apixaban [Eliquis] 5 mg PO BID #60 tablet 03/01/17 Allergies Allergy/AdvReac Type Severity Reaction Status Date / Time amylase [From Creon] AdvReac Diarrhea Verified 03/21/19 10:49 estrogens, conjugated AdvReac Anxiety Verified 03/21/19 10:49 [From Premarin] hydrocodone [From Vicodin] AdvReac Anxiety Verified 03/21/19 10:49 lipase [From Creon] AdvReac Diarrhea Verified 03/21/19 10:49 metronidazole [From Flagyl] AdvReac See Verified 03/21/19 10:49 Comments protease [From Creon] AdvReac Diarrhea Verified 03/21/19 10:49 tetracycline [Tetracycline] AdvReac Anxiety Verified 03/21/19 10:49 Constitutional: Denies: fever Cardiovascular: Denies: chest pain Respiratory: Denies: cough, dyspnea Gastrointestinal: Denies: abdominal pain, nausea, vomiting Past Medical History - Past Medical History Medical history: Reports: asthma, atrial fibrillation, COPD, diabetes, hyperlipidemia, hypertension, seizures, other Surgical history: Reports: cholecystectomy, orthopedic, other, vascular surgery Psychiatric history: Reports: anxiety, depression 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, 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 - Social History Smoking Status: Current every day smoker Smokeless Tobacco Status: No Alcohol use: Reports: none Drug use: Reports: none Physical Exam - General Limitations: no limitations General appearance: alert, in no apparent distress Course Vital Signs Temperature 97.6 F 04/08/19 08:52 Pulse Rate 49 04/08/19 08:52 Respiratory Rate 13 04/08/19 08:52 Blood Pressure 97/69 04/08/19 08:52 O2 Sat by Pulse Oximetry 92 04/08/19 08:52 Temperature 97.6 F 04/08/19 08:56 Pulse Rate 48 04/08/19 08:56 Respiratory Rate 11 04/08/19 08:56 Blood Pressure 97/69 04/08/19 08:56 O2 Sat by Pulse Oximetry 93 04/08/19 08:56 Oxygen Delivery Oxygen Delivery Room Air Attestation Statement - Attestation Attestation: I examined this patient and my medical decision-making was reviewed with the Resident Physician. I agree with the documented findings, disposition and treatment plan as described except to the extent set forth below. 53 year old female presents to the ED with complaints of altered mentals status per EMS reported by family and it appears that she was most recenlty admitted to the hspital on 03/25 for possible DKA. Patint appears to have right sided pneumonia now and it is likley HCAP. wE will start IV ABX to cover and fluid therapy with blood cultures and admit to medicine
[2019-04-08 09:28] LABS: Basophils # 0.1 K/mcL (0.0-0.2); Basophils % 0.7 %; Eosinophils # 0.1 K/mcL (0.0-0.6); Eosinophils % 1.3 %; Hematocrit 52.6 % (35.3-44.9); Hemoglobin 16.8 g/dL (11.5-15.4); Immature Granulocytes % 0.5 % (0-4); Lymphocytes % 10.8 %; Mean Corpuscular HGB Conc 31.9 g/dL (31.6-35.5); Mean Corpuscular Hemoglobin 28.7 pg (28.0-33.3); Mean Corpuscular Volume 89.8 fL (83.0-100.0); Mean Platelet Volume 10.9 fL (9.4-12.4); Monocytes # 0.6 K/mcL (0.0-1.3); Monocytes % 6.6 %; Neutrophils # 7.5 K/mcL (1.6-8.9); Platelet Count 217 K/mcL (140-400); Red Blood Count 5.86 M/mcL (3.82-4.97); Segmented Neutrophils % 80.1 %
[2019-04-08 09:35] LABS: INR 1.2; Prothrombin Time 13.9 Seconds (9.4-12.1)
[2019-04-08 10:09] LABS: Alanine Aminotransferase 6 Units/L (7-52); Albumin 3.5 g/dL (3.5-5.7); Albumin/Globulin Ratio 1.3 (1.1-2.2); Alkaline Phosphatase 92 Units/L (34-104); Aspartate Amino Transferase 11 Units/L (13-39); BUN/Creatinine Ratio 44 (6-26); Bilirubin,Direct 0.1 mg/dL (0.0-0.2); Bilirubin,Indirect 0.2 mg/dL (0.0-1.2); Bilirubin,Total 0.3 mg/dL (0.3-1.0); Blood Urea Nitrogen 52 mg/dL (6-20); Calcium 9.2 mg/dL (8.6-10.3); Carbon Dioxide 31 mEq/L (23-29); Chloride 101 mEq/L (98-107); Ethanol < 10 mg/dL (Less than 10); Globulin 2.8 g/dL (2.4-3.5); Glucose 149 mg/dL (70-105); Osmolality,Calculated 303 (280-300); Potassium 3.3 mEq/L (3.5-5.1); Sodium 138 mEq/L (136-145); Total Protein 6.3 g/dL (6.4-8.9); eGFR For Non-African Americans 48 (> 60)
[2019-04-08 10:31] LABS: Bilirubin,Urine Negative (Negative); Blood,Urine Negative (Negative); Clarity,Urine Clear (Clear); Color,Urine Yellow (Yellow); Glucose,Urine (UA) Normal (Normal); Ketones,Urine Negative (Negative); Leukocyte Esterase,Urine Moderate (Negative); Nitrite,Urine Negative (Negative); PH,Urine 6.5 pH Units (5.0-8.0); Protein,Urine Negative (Neg-Trace); Specific Gravity,Urine < 1.005 (1.010-1.025); Urobilinogen,Urine Normal (Normal)
[2019-04-08 10:33] LABS: Hyaline Casts,Urine None Seen per lpf (None-Few); RBC,Urine 0-3 per hpf (0-3); Squamous Epithelial Cell,Urine Many per lpf (None-Few)
[2019-04-08 10:51] LABS: Troponin I < 0.03 ng/mL (< 0.04)
[2019-04-08 11:03] LABS: Bacteria,Urine Few per hpf (None-Few); Renal Epithelial Cells,Urine Few per hpf (None-Few); Transitional Epi Cells,Urine Few per hpf (None-Few)
[2019-04-08 11:27] LABS: Amphetamine Screen,Urine Negative ng/mL (Cutoff=1000); Barbiturate Screen,Urine Negative ng/mL (Cutoff=200); Benzodiazepines Screen,Urine Negative ng/mL (Cutoff=200); Cannabinoid Screen,Urine Negative ng/mL (Cutoff = 50); Cocaine Screen,Urine Negative ng/mL (Cutoff= 300); Opiate Screen,Urine Negative ng/mL (Cutoff=300); Phencyclidine Screen,Urine Negative ng/mL (Cutoff=25)
--- NOTE | 2019-04-08 14:21 | Internal Med History&Physical ---
Date of Encounter: 05/09/19 Time of Encounter: 11:00 Internal Medicine - H&P: HPI Chief complaint: Alterd mental status History of present illness: 53-year-old female with a history of A. fib, diabetes, hypertension, seizures presents for evaluation of change in mental status and lethargy. The patient was found this a.m. by her on the floor kitchen, she was conscious but lethargic and altered, EMS were called, and they reported that patient noted to be admitted to cardiac with heart rate in mid 40s, blood glucose was unremarkable, open arrival to the ER the patient was evaluated by the ER staff and her chest x-ray revealed possible aspiration pneumonia, get CT scan of the head was as no significant abnormality, laboratory data were evident for volume depletion. The patient was started on IV fluid with isotonic saline and antibiotic coverage was started. Patient incidentally was noted to have a tick that was engorged in her left proximal thigh. This does not appear to be a Lyme disease carrying tick but will obtain Lyme titers. At the bedside the patient is sleepy however she is responding to verbal stimuli and and open her eyes and also question appropriately, no evidence of encephalopathy or meningitis.. The patient EKG revealed sinus bradycardia , reviewing the patient's records from prior admission indicated that patient heart rate been around mid 50s. The patient was admitted for further evaluation and management. Past Med Surg Social Fam HX - Past Medical History Medical history: asthma, atrial fibrillation, COPD, diabetes, hyperlipidemia, hypertension, seizures, other Additional medical history: polymyalgia Psychiatric history: anxiety, depression - Past Surgical History Surgical History: cholecystectomy, orthopedic, other, vascular surgery Additional surgical history: tubal, shoulder surgery - Social History Smoking Status: Current every day smoker Smokeless Tobacco Status: No Alcohol use: none Drug use: none - Family History Father Adopted: No Family Member Ethnicity: Non- Living Status: Still Living Hx Family Cardiac Disorders: Yes (4x sx on heart) Hx Family Respiratory Disorders: Yes (COPD) Hx Family Cancer: Yes (prostate) Hx Family GI Disorders: No Hx Family Endocrine Disorder: Yes Hx Family Neuromuscular Disorders: No Hx Family Neurologic Disorders: No Hx Family HEENT Disorders: No Hx Family Autoimmune Disorders: No Mother Family Member Ethnicity: Non- Living Status: Still Living Hx Family Cardiac Disorders: Yes (htn) Hx Family Respiratory Disorders: No Hx Family Cancer: Yes Hx Family GI Disorders: No Hx Family Endocrine Disorder: Yes (DM2) Hx Family Neuromuscular Disorders: No Hx Family Neurologic Disorders: No Hx Family HEENT Disorders: No Hx Family Autoimmune Disorders: No Internal Medicine - H&P: Meds Albuterol Neb [Proventil Neb] 2.5 mg IH TID PRN 04/17/16 [History] Albuterol Sulfate [Albuterol Inhaler] 2 puff IH Q6H PRN 04/17/16 [History] Oxygen 3 l NS AD 04/17/16 [History] Nitroglycerin [Nitrostat] 0.4 mg SL Q5M PRN 02/13/17 [History] Aspirin Enteric Coated [Aspirin EC] 81 mg PO DAILY tablet. 02/15/17 [Rx] Apixaban [Eliquis] 5 mg PO BID #60 tablet 03/01/17 [Rx] Loratadine [Claritin] 10 mg PO DAILY 12/18/17 [History] Umeclidinium [place] [Incruse Ellipta] 1 puff IH DAILY 12/18/17 [History] Budesonide/Formoterol 160/4.5 [Symbicort 160/4.5] 2 puff IH BIDR 12/25/18 [History] Loperamide HCl [Imodium A-D] 2 - 4 mg PO Q8HR PRN 12/25/18 [History] SUMAtriptan succinate [Imitrex] 50 mg PO AD PRN 01/01/19 [History] Isosorbide MONOnitrate [Isosorbide Mononitrate ER] 120 mg PO DAILY 01/14/19 [History] Atorvastatin [Lipitor] 40 mg PO HS 03/26/19 [History] Bumetanide 2 mg PO BID 03/26/19 [History] Potassium Chloride [K-Tab ER] 20 meq PO DAILY 03/26/19 [History] Spironolactone [Aldactone] 25 mg PO DAILY 03/26/19 [History] metOLazone [Zaroxolyn] 2.5 mg PO 2XW 03/26/19 [History] raNITIdine HCl [Zantac] 150 mg PO BID 03/26/19 [History] Insulin Degludec [Tresiba Flextouch U-200] 105 units SQ DAILY 04/09/19 [History] Pregabalin [Lyrica] 50 mg PO BID 30 Days #60 capsule 04/10/19 [Rx] levoFLOXacin [Levaquin] 750 mg PO DAILY #5 tablet 04/10/19 [Rx] Allergy/AdvReac Type Severity Reaction Status Date / Time amylase [From Creon] AdvReac Diarrhea Verified 04/09/19 16:47 estrogens, conjugated AdvReac Anxiety Verified 04/09/19 16:47 [From Premarin] hydrocodone [From Vicodin] AdvReac Anxiety Verified 04/09/19 16:47 lipase [From Creon] AdvReac Diarrhea Verified 04/09/19 16:47 metronidazole [From Flagyl] AdvReac See Verified 04/09/19 16:47 Comments protease [From Creon] AdvReac Diarrhea Verified 04/09/19 16:47 tetracycline [Tetracycline] AdvReac Anxiety Verified 04/09/19 16:47 All Systems PM: A 10-system review of systems was performed and is negative for pertinent findings except as documented above in the HPI. - Constitutional Vitals: Temp Pulse Resp BP Pulse Ox 96.2 F L 46 14 154/71 98 04/08/19 12:26 04/08/19 12:26 04/08/19 12:26 04/08/19 12:26 04/08/19 12:26 General appearance: Present: A&O X 3 Exam: As below - Head Head exam: Present: atraumatic, normocephalic - Eye Eye exam: Present: PERRL, conjuntiva pink, sclera anicteric Pupils: Present: PERRL - Neck Neck exam general surgery: Present: supple, trachea midline. Absent: lymphadenopathy - Respiratory Respiratory exam: Present: CTAB. Absent: accessory muscle use, rales, rhonchi, wheezes - Cardiovascular Cardiovascular exam: Present: RRR, +S1, +S2. Absent: diastolic murmur, gallop, rubs, systolic murmur - GI/Abdominal GI/Abdominal exam: Present: normal bowel sounds, soft, no peritoneal signs. Absent: distended, tenderness - Extremities Exam Extremities exam: Present: warm, radial pulses palpable and symmetrical. Absent: calf tenderness, cyanotic, pedal edema - Neurological Exam Neurological exam: Present: CN II-XII intact, oriented X3, no focal deficits. Absent: pronater drift, facial droop, speech deficit - Skin Skin exam: Present: dry, intact Internal Med - H&P Results - Labs CBC & Chem 7: 04/10/19 05:39 04/10/19 05:39 Labs: Short CBC 04/08/19 Range/Units 09:15 WBC 9.4 (4.3-11.1) K/mcL Hgb 16.8 H (11.5-15.4) g/dL Hct 52.6 H (35.3-44.9) % Plt Count 217 (140-400) K/mcL Neutrophils # 7.5 (1.6-8.9) K/mcL BMP 04/08/19 09:15 Sodium 138 Potassium 3.3 L Chloride 101 Carbon Dioxide 31 H BUN 52 H Creatinine 1.18 Glucose 149 H Calcium 9.2 Cardiac Enzymes 04/08/19 Range/Units 09:15 Troponin I < 0.03 (< 0.04) ng/mL Liver Function 04/08/19 Range/Units 09:15 Total Bilirubin 0.3 (0.3-1.0) mg/dL Direct Bilirubin 0.1 (0.0-0.2) mg/dL AST 11 L (13-39) Units/L ALT 6 L (7-52) Units/L Alkaline Phosphatase 92 (34-104) Units/L Albumin 3.5 (3.5-5.7) g/dL Urine 04/08/19 Range/Units 10:15 Urine Color Yellow (Yellow) Urine Clarity Clear (Clear) Urine pH 6.5 (5.0-8.0) pH Units Ur Specific [place] < 1.005 L (1.010-1.025) Urine Protein Negative (Neg-Trace) mg/dL Urine Glucose (UA) Normal (Normal) mg/dL - Impressions ITS Impressions Chest X-Ray 04/08/19 08:50 IMPRESSION: 1. Increasing right basilar airspace opacity suspicious for pneumonia. 2. Slightly increased interstitial opacities which may reflect mild edema. D/ / Valeri Wheeler MD / Valeri Wheeler MD Interpreting Provider: Valeri Wheeler MD Head CT 05/28/19 08:51 IMPRESSION: 1. No acute intracranial abnormality. 2. Cerebral and cerebellar parenchymal volume loss with chronic microvascular white matter ischemic disease. D/ / 04/08/2019 09:42:23 Ramón Finn MD / bcarter Interpreting Provider: Ramón Finn MD - Assessment and Plan (1) Pneumonia Status: Acute Assessment and plan: SSESSMENT: imaging studies are suggestive of Pneumonia - Blood Cx - Antibiotics - CBCD, CMP in AM - Tylenol 650 mg PO q 4-6 hr PRN pain or fever Qualifiers: Pneumonia type: due to unspecified organism Laterality: right Lung location: lower lobe of lung Qualified Code(s): J18.1 - Lobar pneumonia, unspecified organism (2) Diabetes mellitus Status: Chronic Assessment and plan: we will start insulin sliding scale with moderate coverage Qualifiers: Diabetes mellitus type: type 2 Diabetes mellitus buttermaker continuous churn insulin use: with buttermaker continuous churn use Diabetes mellitus complication status: with unspecified complications Qualified Code(s): E11.8 - Type 2 diabetes mellitus with unspecified complications; Z79.4 - detention (current) use of insulin; Z79.4 - predatory animal exterminator (current) use of insulin; Z79.4 - predatory animal exterminator (current) use of insulin; Z79.4 - detention (current) use of insulin (3) Hypovolemia due to dehydration Status: Acute Assessment and plan: we will start the patient on IV hydration with isotonic saline with caution due to history of congestive heart failure, strict I&Os. (4) Altered mental status Status: Acute Assessment and plan: the patient is alert and oriented to place and time and person, I'm suspecting that Lyrica (pregabalin) my contributing some of her symptoms including drowsiness and drowsiness, dizziness and loss of concentration and memory. we will hold for now and We will continue to monitor closely while inpatient, Qualifiers: Altered mental status type: unspecified Qualified Code(s): R41.82 - Altered mental status, unspecified (5) Hypokalemia Status: Acute Assessment and plan: we will replace potassium and continue to monitor level (6) Recent urinary tract infection Status: Acute (7) COPD (chronic obstructive pulmonary disease) Status: Chronic Assessment and plan: we will continue home inhalers and start the patient on Duneb. Qualifiers: COPD type: unspecified COPD Qualified Code(s): J44.9 - Chronic obstructive pulmonary disease, unspecified (8) Bradycardia Status: Resolved Assessment and plan: The patient is on metoprolol at home and does have prior history of sinus bradycardia based on past vital signs. she is asymptomatic, we will hold metoprolol for now and continue to monitor patient (9) DVT prophylaxis Status: Acute - Time Spent With Patient Total time spent is greater than 50% in coordination of care (as documented) at patient's floor/unit and/or counseling patient:
[2019-04-08] MEDS ORDERED: Naloxone 0.4 MG/ML INJ IVP PRN (14:50)
[2019-04-08] MEDS ORDERED: Acetaminophen 325 MG TABLET PO PRN (14:50)
[2019-04-08] MEDS ORDERED: Ondansetron 4 MG/2 ML VIAL IVP PRN (14:50)
[2019-04-08] MEDS: 0.9 % Sodium Chloride 1,000 ML IVC SCH (16:10)
[2019-04-08] MEDS ORDERED: *HR* Dextrose 50 % in Water (Syg) 50 ML SYRINGE IVP PRN (18:51)
[2019-04-08] MEDS ORDERED: Dextrose Gel 15 GM/37.5 ML TUBE PO PRN ×2 (18:51)
[2019-04-08] MEDS ORDERED: D5% in Water 1,000 ML IVC PRN (18:51)
[2019-04-08 19:56] LABS: Estimated Average Glucose 318 mg/dl; Hemoglobin A1C 12.7 %
[2019-04-08] MEDS: Insulin LISPRO 300 UNITS/3 ML VIAL SQ SCH ×2 (20:17→20:18)
[2019-04-09] MEDS: Piperacillin/Tazobactam 3.375 GM in 0.9 % Sodium Chloride Mini Bag 100 ML IVPB SCH ×2 (00:34→09:48)
[2019-04-09] MEDS: 0.9 % Sodium Chloride 1,000 ML IVC SCH (01:16)
[2019-04-09] MEDS: Insulin LISPRO 300 UNITS/3 ML VIAL SQ SCH ×4 (07:39→22:05)
[2019-04-09] MEDS ORDERED: Aminoglycoside Consult 1 EACH MC ONE (08:00)
[2019-04-09 08:01] LABS: Basophils % 0.5 %; Hemoglobin 17.5 g/dL (11.5-15.4); Immature Granulocytes % 0.4 % (0-4); Lymphocytes % 9.2 %; Mean Corpuscular HGB Conc 31.7 g/dL (31.6-35.5); Mean Corpuscular Hemoglobin 28.5 pg (28.0-33.3); Mean Corpuscular Volume 89.9 fL (83.0-100.0); Monocytes % 5.3 %; Platelet Count 210 K/mcL (140-400); Red Blood Count 6.14 M/mcL (3.82-4.97); Red Cell Distribution Width 19.4 % (11.5-14.5); Segmented Neutrophils % 83.6 %
[2019-04-09 08:02] LABS: Basophils # 0.1 K/mcL (0.0-0.2); Eosinophils # 0.1 K/mcL (0.0-0.6); Monocytes # 0.6 K/mcL (0.0-1.3); Neutrophils # 9.2 K/mcL (1.6-8.9)
--- NOTE | 2019-04-09 08:05 | Electrocardiograph Report ---
[facility] Test Date: 2019-04-08 Pat Name: Milena Alanis Department: [id number] Room: 3B Gender: F Medical Librarian: : 1965 Requested By: Devyn Torres Order Number: [id number] Reading MD: Jurgen Driscoll Measurements Intervals [place] Rate: 50 P: 67 DC: 184 QRS: 71 QRSD: 89 T: -17 QT: 498 QTc: 455 Interpretive Statements Sinus rhythm Borderline T abnormalities, inferior leads Electronically Signed On 04-09-2019 8:04:15 EDT by Jurgen Driscoll
[2019-04-09 08:11] LABS: Hematocrit 55.2 % (35.3-44.9)
[2019-04-09 08:12] LABS: Prothrombin Time 11.5 Seconds (9.4-12.1)
[2019-04-09 08:15] LABS: Activated Partial Thrombo Time 31.5 Seconds (26.0-36.0)
--- NOTE | 2019-04-09 08:43 | Internal Med Progress Note ---
<Anup Delgado - Last Filed: 04/09/19 16:39> Hospitalist Progress Note - Encounter Date of Encounter: 04/09/19 Time of Encounter: 13:40 - Subjective Interval History: Patient is resting comfortably in bed at time examination. She was sleeping initially however I did wake her up and she roused easily on examination to voice. She states that she does not remember why she had to come to the hospital, however she's been told it was for pneumonia. She feels much better, and is having no difficulty breathing. She denies cough. She does admit to some suprapubic tenderness. Otherwise no acute complaints. - Exam Vitals: Temp Pulse Resp BP Pulse Ox 98.4 F 63 16 128/75 92 04/09/19 06:50 04/09/19 06:50 04/09/19 06:50 04/09/19 06:50 04/09/19 06:50 Exam: Gen: Vitals noted. No acute distress. Eyes: anicteric sclerae, moist conjunctivae; no lid-lag; Pupils equal and reactive to light HENT: Atraumatic; oropharynx clear with moist mucous membranes and no mucosal ulcerations; normal hard and soft palate Neck: Trachea midline; supple, no thyromegaly or lymphadenopathy Cardiac: RRR, no murmur, +S1/S2 Pulmonary: CTA bilaterally, no wheezes, rales or rhonchi, equal chest expansion Abdomen: soft, mild suprapubic tenderness, no guarding. No masses or hepatosp lenomegaly MSK: ROM intact, no joint swelling noted Extremities: no BLE edema, nontender calf, no cyanosis or clubbing Skin: Normal temperature, turgor and texture; no rash, ulcers or subcutaneous nodules Neuro: moves all extremities, no focal deficits. Psych: Appropriate mood and behavior. A&Ox3 - Assessment and Plan (1) Pneumonia Current Visit: Yes Status: Acute Assessment and Plan: Presents with AMS, Lethargy. CXR suspicious for PNA. Recent hospitalization, however not necessarily HCAP Blood cultures pending. Urine antigens pending Was started on Zosyn and Vancomycin Will transition to Levaquin continue to monitor vitals O2 prn (2) Recent urinary tract infection Current Visit: No Status: Acute (3) Hypovolemia due to dehydration Current Visit: No Status: Acute Assessment and Plan: Received IVF, is improved PO Hydration is encouraged (4) Hypokalemia Current Visit: No Status: Acute Assessment and Plan: we will replace potassium and continue to monitor level (5) Diabetes mellitus Current Visit: No Status: Chronic Assessment and Plan: we will start insulin sliding scale with moderate coverage (6) Congestive heart failure Current Visit: No Status: Chronic Assessment and Plan: Chronic, stable (7) COPD (chronic obstructive pulmonary disease) Current Visit: No Status: Chronic Assessment and Plan: Chronic, stable. we will continue home inhalers and start the patient on Duneb. (8) DVT prophylaxis Current Visit: No Status: Acute Assessment and Plan: Pt appears to be on apixiban at home. Continue once reconciled (9) Altered mental status Current Visit: Yes Status: Acute Assessment and Plan: AMS, possibly secondary to PNA + Medication effects Patient also apparently has recurrent UTI, however no positive cultures in past Will treat PNA, monitor meds Mentation is improving - Time Spent with Patient Total time spent is greater than 50% in coordination of care (as documented) at patient's floor/unit and/or counseling patient: Internal Medicine: Result - Labs CBC & Chem 7: 04/09/19 06:51 04/09/19 06:51 Labs: Short CBC 04/08/19 04/09/19 Range/Units 09:15 06:51 WBC 9.4 11.1 (4.3-11.1) K/mcL Hgb 16.8 H 17.5 H (11.5-15.4) g/dL Hct 52.6 H 55.2 H (35.3-44.9) % Plt Count 217 210 (140-400) K/mcL Neutrophils # 7.5 9.2 H (1.6-8.9) K/mcL BMP 04/08/19 09:15 Sodium 138 Potassium 3.3 L Chloride 101 Carbon Dioxide 31 H BUN 52 H Creatinine 1.18 Glucose 149 H Calcium 9.2 Cardiac Enzymes 04/08/19 Range/Units 09:15 Troponin I < 0.03 (< 0.04) ng/mL Liver Function 04/08/19 Range/Units 09:15 Total Bilirubin 0.3 (0.3-1.0) mg/dL Direct Bilirubin 0.1 (0.0-0.2) mg/dL AST 11 L (13-39) Units/L ALT 6 L (7-52) Units/L Alkaline Phosphatase 92 (34-104) Units/L Albumin 3.5 (3.5-5.7) g/dL Urine 04/08/19 Range/Units 10:15 Urine Color Yellow (Yellow) Urine Clarity Clear (Clear) Urine pH 6.5 (5.0-8.0) pH Units Ur Specific [place] < 1.005 L (1.010-1.025) Urine Protein Negative (Neg-Trace) mg/dL Urine Glucose (UA) Normal (Normal) mg/dL - ABG Interpretation ABG results: PT/INR, D-dimer PT 11.5 Seconds (9.4-12.1) 04/09/19 06:51 - Impressions Impressions Chest X-Ray 04/08/19 08:50 IMPRESSION: 1. Increasing right basilar airspace opacity suspicious for pneumonia. 2. Slightly increased interstitial opacities which may reflect mild edema. D/ / Valeri Wheeler MD / Valeri Wheeler MD Interpreting Provider: Valeri Wheeler MD Head CT 04/08/19 08:51 IMPRESSION: 1. No acute intracranial abnormality. 2. Cerebral and cerebellar parenchymal volume loss with chronic microvascular white matter ischemic disease. D/ / 04/08/2019 09:42:23 Ramón Finn MD / [email or web address] Interpreting Provider: Ramón Finn MD Consult Discharge Plan - Plan Referrals: NONE,PCP [Primary Care Provider] - <Jerman Still - Last Filed: 04/09/19 17:20> Hospitalist Progress Note - Encounter Date of Encounter: 04/09/19 Internal Medicine: Result - Labs CBC & Chem 7: 04/09/19 06:51 04/09/19 06:51 - Attending Attestation Patient seen and examined independently, including review of objective data including labs. I agree with plan of care as documented above by the resident with the following comments: Pt is a pleasant 53 F w hx smoker, COPD on 2L, HFpEF, HTN, DM2, A-Fib on AC, seizures, anx/dep, who p/w acute metabolic encephalopathy and found on CXR to have RLL pneumonia. This could reflect aspiration pneumonia. Pt is on multiple centrally acting medications including lyrica and baclofen, and presented with VANESSA (Cr 1.18 over baseline 0.6-0.7), and after holding these medications and treating with abx the patient today is much improved. Was bradycardic on presentation, too, and this has improved by holding metoprolol. Not clinically septic and thus will narrow abx to levaquin, which patient can take PO. Possible discharge tomorrow if continues to improve. Will likely d/c baclofen and decrease lyrica at discharge. <Anup Delgado - Last Filed: 04/09/19 16:39> (1) Pneumonia Qualifiers: Pneumonia type: due to unspecified organism Laterality: right Lung location: lower lobe of lung Qualified Code(s): J18.1 - Lobar pneumonia, unspecified organism (5) Diabetes mellitus Qualifiers: Diabetes mellitus type: type 2 Diabetes mellitus retirement insulin use: with retirement use Diabetes mellitus complication status: with unspecified complications Qualified Code(s): E11.8 - Type 2 diabetes mellitus with unspecified complications; Z79.4 - halfway (current) use of insulin; Z79.4 - halfway (current) use of insulin; Z79.4 - manager terminal (current) use of insulin; Z79.4 - manager terminal (current) use of insulin (7) COPD (chronic obstructive pulmonary disease) Qualifiers: COPD type: unspecified COPD Qualified Code(s): J44.9 - Chronic obstructive pulmonary disease, unspecified (9) Altered mental status Qualifiers: Altered mental status type: unspecified Qualified Code(s): R41.82 - Altered mental status, unspecified
[2019-04-09 08:53] LABS: Alanine Aminotransferase 9 Units/L (7-52); Albumin 3.5 g/dL (3.5-5.7); Albumin/Globulin Ratio 1.3 (1.1-2.2); Alkaline Phosphatase 90 Units/L (34-104); BUN/Creatinine Ratio 42 (6-26); Bilirubin,Total 0.3 mg/dL (0.3-1.0); Blood Urea Nitrogen 35 mg/dL (6-20); Calcium 8.9 mg/dL (8.6-10.3); Carbon Dioxide 24 mEq/L (23-29); Chloride 109 mEq/L (98-107); Chol/HDL Ratio 3.9 (0-4.9); Cholesterol 116 mg/dL (< 200); Globulin 2.6 g/dL (2.4-3.5); Glucose 45 mg/dL (70-105); HDL Cholesterol 30 mg/dL (40-59); LDL Cholesterol,Calculated 46 mg/dL (0-99); Magnesium 2.3 mg/dL (1.6-2.6); Osmolality,Calculated 303 (280-300); Phosphorous 3.1 mg/dL (2.7-4.5); Potassium 3.5 mEq/L (3.5-5.1); Sodium 144 mEq/L (136-145); Total Protein 6.1 g/dL (6.4-8.9); Triglycerides 201 mg/dL (< 150); eGFR For Non-African Americans > 60 (> 60)
[2019-04-09 08:55] LABS: Aspartate Amino Transferase 14 Units/L (13-39)
--- NOTE | 2019-04-09 09:36 | Electrocardiograph Report ---
[place] [id number] Test Date: 2019-04-08 Pat Name: Milena Alanis Department: [id number] Room: 3B Gender: F Transition Assistant: : 1965 Requested By: Jaimee Navarrete Order Number: [id number] Reading MD: Frank Diaz Measurements Intervals [place] Rate: 48 P: 50 [place]: 186 QRS: 78 QRSD: 88 T: -11 QT: 507 QTc: 453 Interpretive Statements Sinus bradycardia Borderline T abnormalities, diffuse leads Electronically Signed On 04-09-2019 9:35:06 EDT by Frank Diaz
[2019-04-09] MEDS ORDERED: Nitroglycerin 0.4 MG TAB.SUBL SL PRN (18:47)
[2019-04-09] MEDS ORDERED: Albuterol 2.5 MG/3 ML NEBULIZER IH PRN (18:47)
[2019-04-09] MEDS ORDERED: SUMAtriptan succinate 50 MG TABLET PO PRN (18:47)
[2019-04-09] MEDS: Budesonide/Formoterol 160/4.5 1 PUFF INH IH SCH (20:03)
[2019-04-09] MEDS: Apixaban 5 MG TABLET PO SCH (22:05)
[2019-04-09] MEDS: Bumetanide 1 MG TABLET PO SCH (22:06)
[2019-04-10 06:45] LABS: Basophils % 0.5 %; Eosinophils # 0.2 K/mcL (0.0-0.6); Hemoglobin 17.2 g/dL (11.5-15.4); Immature Granulocytes % 0.3 % (0-4); Lymphocytes % 12.3 %; Mean Corpuscular HGB Conc 30.9 g/dL (31.6-35.5); Mean Corpuscular Hemoglobin 28.5 pg (28.0-33.3); Mean Corpuscular Volume 92.2 fL (83.0-100.0); Mean Platelet Volume 11.3 fL (9.4-12.4); Monocytes # 0.6 K/mcL (0.0-1.3); Monocytes % 7.3 %; Neutrophils # 6.1 K/mcL (1.6-8.9); Platelet Count 165 K/mcL (140-400); Red Blood Count 6.03 M/mcL (3.82-4.97); Red Cell Distribution Width 20.1 % (11.5-14.5); Segmented Neutrophils % 77.6 %
[2019-04-10 06:49] LABS: Hematocrit 55.6 % (35.3-44.9)
[2019-04-10 07:33] LABS: BUN/Creatinine Ratio 28 (6-26); Blood Urea Nitrogen 20 mg/dL (6-20); Calcium 9.3 mg/dL (8.6-10.3); Carbon Dioxide 25 mEq/L (23-29); Chloride 108 mEq/L (98-107); Glucose 262 mg/dL (70-105); Osmolality,Calculated 300 (280-300); Potassium 4.5 mEq/L (3.5-5.1); Sodium 139 mEq/L (136-145); eGFR For Non-African Americans > 60 (> 60)
--- NOTE | 2019-04-10 07:51 | Discharge Summary ---
<Anup Delgado - Last Filed: 04/10/19 14:40> - NOTES TO OUTPATIENT PROVIDER Notes to Outpatient Provider: Presented with AMS, found to have PNA and concern for possible ?UTI. Treated with Vanc + Zosyn and transitioned to PO Levaquin. Did have slight concern on day of DC because was still having sweats, however patient felt good and wanted to leave, felt comfortable following outpatient. Orders not resulted at time of discharge: Pending orders 04/08/19 09:45 Culture,Blood [BC] Stat 04/09/19 08:32 MRSA Surveillance Screen [MOLMIC] Routine 04/09/19 14:45 Legionella Antigen [RM] Routine S. 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 Alanis is a 53 year old female with history of atrial fibrillation, diabetes, hypertension, and recent admission for urinary tract infection who presents to the hospital for altered mental status. Should been found by her on the kitchen floor with confusion and lethargy and was brought to the hospital by EMS. The patient was found to have a heart rate in the mid 40s and low blood glucose. She was also found to have a CXR suspicious for pna. The patient's BB was stopped, and she was started on Zosyn and vancomycin. Overnight the patient improved dramatically with respect to her mental status, which continued to improve throughout the duration of her stay. Her encephalopathy is presumed to be metabolic in nature and secondary to pna. She will be discharged on PO Levaquin, with follow-up to primary care. Beta airam will be discontinued at time of discharge, along with baclofen, and her dose of lyrica will be decreased to half. She will need to adjust doses with primary care moving forward. Discharge discussed with: patient, nurse, social work - Time Spent with Patient Total time spent providing and/or coordinating discharge services: - Discharge Medications Prescriptions: New levoFLOXacin [Levaquin] 750 mg PO DAILY #5 tablet Pregabalin [Lyrica] 50 mg PO BID 30 Days #60 capsule Continued Albuterol Sulfate [Albuterol Inhaler] 2 puff IH Q6H PRN PRN Reason: Shortness Of Breath Oxygen 3 l NS AD Albuterol Neb [Proventil Neb] 2.5 mg IH TID PRN PRN Reason: COPD Nitroglycerin [Nitrostat] 0.4 mg SL Q5M PRN PRN Reason: Chest Pain Aspirin Enteric Coated [Aspirin EC] 81 mg PO DAILY tablet. Apixaban [Eliquis] 5 mg PO BID #60 tablet Umeclidinium [place] [Incruse Ellipta] 1 puff IH DAILY Loratadine [Claritin] 10 mg PO DAILY Budesonide/Formoterol 160/4.5 [Symbicort 160/4.5] 2 puff IH BIDR Loperamide HCl [Imodium A-D] 2 - 4 mg PO Q8HR PRN PRN Reason: Diarrhea SUMAtriptan succinate [Imitrex] 50 mg PO AD PRN PRN Reason: Migraine Headache Isosorbide MONOnitrate [Isosorbide Mononitrate ER] 120 mg PO DAILY Atorvastatin [Lipitor] 40 mg PO HS Bumetanide 2 mg PO BID metOLazone [Zaroxolyn] 2.5 mg PO 2XW Potassium Chloride [K-Tab ER] 20 meq PO DAILY raNITIdine HCl [Zantac] 150 mg PO BID Spironolactone [Aldactone] 25 mg PO DAILY Insulin Degludec [Tresiba Flextouch U-200] 105 units SQ DAILY Discontinued Pregabalin [Lyrica] 100 mg PO BID Topiramate 50 mg PO BID Baclofen [Lioresal] 10 mg PO TID PRN PRN Reason: BACK PAIN Montelukast [Singulair] 10 mg PO DAILY Metoprolol [Lopressor] 25 mg PO BID Home Medications: Albuterol Neb [Proventil Neb] 2.5 mg IH TID PRN 04/17/16 [History] Albuterol Sulfate [Albuterol Inhaler] 2 puff IH Q6H PRN 04/17/16 [History] Oxygen 3 l NS AD 04/17/16 [History] Nitroglycerin [Nitrostat] 0.4 mg SL Q5M PRN 02/13/17 [History] Aspirin Enteric Coated [Aspirin EC] 81 mg PO DAILY tablet. 02/15/17 [Rx] Apixaban [Eliquis] 5 mg PO BID #60 tablet 03/01/17 [Rx] Loratadine [Claritin] 10 mg PO DAILY 12/18/17 [History] Umeclidinium [place] [Incruse Ellipta] 1 puff IH DAILY 12/18/17 [History] Budesonide/Formoterol 160/4.5 [Symbicort 160/4.5] 2 puff IH BIDR 12/25/18 [History] Loperamide HCl [Imodium A-D] 2 - 4 mg PO Q8HR PRN 12/25/18 [History] SUMAtriptan succinate [Imitrex] 50 mg PO AD PRN 01/01/19 [History] Isosorbide MONOnitrate [Isosorbide Mononitrate ER] 120 mg PO DAILY 01/14/19 [History] Atorvastatin [Lipitor] 40 mg PO HS 03/26/19 [History] Bumetanide 2 mg PO BID 03/26/19 [History] Potassium Chloride [K-Tab ER] 20 meq PO DAILY 03/26/19 [History] Spironolactone [Aldactone] 25 mg PO DAILY 03/26/19 [History] metOLazone [Zaroxolyn] 2.5 mg PO 2XW 03/26/19 [History] raNITIdine HCl [Zantac] 150 mg PO BID 03/26/19 [History] Insulin Degludec [Tresiba Flextouch U-200] 105 units SQ DAILY 04/09/19 [History] Pregabalin [Lyrica] 50 mg PO BID 30 Days #60 capsule 04/10/19 [Rx] levoFLOXacin [Levaquin] 750 mg PO DAILY #5 tablet 04/10/19 [Rx] Allergies/Adverse Reactions: Allergy/AdvReac Type Severity Reaction Status Date / Time amylase [From Creon] AdvReac Diarrhea Verified 04/09/19 16:47 estrogens, conjugated AdvReac Anxiety Verified 04/09/19 16:47 [From Premarin] hydrocodone [From Vicodin] AdvReac Anxiety Verified 04/09/19 16:47 lipase [From Creon] AdvReac Diarrhea Verified 04/09/19 16:47 metronidazole [From Flagyl] AdvReac See Verified 04/09/19 16:47 Comments protease [From Creon] AdvReac Diarrhea Verified 04/09/19 16:47 tetracycline [Tetracycline] AdvReac Anxiety Verified 04/09/19 16:47 Date of admission: 04/08/19 16:59 Primary care physician: PCP NONE Consults: 04/08/19 12:30 Consult to Nutrition [CONS] Routine Comment: Consulting Provider: NUTRITION Reason for Dietary Consult: MST Score Discharging clinician: Anup Delgado Anticipated date of discharge: 04/10/19 - Constitutional Vitals: Temp Pulse Resp BP Pulse Ox 97.1 F L 66 16 159/84 96 04/10/19 03:54 04/10/19 03:54 04/10/19 03:54 04/10/19 03:54 04/10/19 03:54 General appearance: Present: A&O X 3 Exam: Gen: Vitals noted. No acute distress. Eyes: anicteric sclerae, moist conjunctivae; no lid-lag; Pupils equal and reactive to light HENT: Atraumatic; oropharynx clear with moist mucous membranes and no mucosal ulcerations; normal hard and soft palate Neck: Trachea midline; supple, no thyromegaly or lymphadenopathy Cardiac: RRR, no murmur, +S1/S2 Pulmonary: Fine rales noted in right lung base Abdomen: soft, mild suprapubic tenderness, no guarding. No masses or hepatosplenomegaly MSK: ROM intact, no joint swelling noted Extremities: no BLE edema, nontender calf, no cyanosis or clubbing Skin: Normal temperature, turgor and texture; no rash, ulcers or subcutaneous nodules Neuro: moves all extremities, no focal deficits. Psych: Appropriate mood and behavior. A&Ox3 - Patient Status Disposition: Home, Self-Care Condition: Fair Functional capacity at discharge: independent ambulation Overall status at discharge: patient is not back to baseline - Discharge Instructions Follow Up With: Iliana Almaguer MD [Non-Partnered Physician] - 04/15/19 2:45 pm Additional Instructions: Continue Levaquin for 5 more days. Stop baclofen. Decrease dose of lyrica to 50mg twice a day. If you continue to have fevers, chills, sweats, shortness of breath, or cough, contact your doctor. If you develop confusion you should return to the emergency room. Follow-up with PCP in 5-10 days. - Diet and Activity Activity: increase activity as tolerated Diet: regular diet <Jerman Still - Last Filed: 04/10/19 15:42> Date of Encounter: 04/10/19 Date of admission: 04/08/19 16:59 Primary care physician: PCP NONE Consults: 04/08/19 12:30 Consult to Nutrition [CONS] Routine Comment: Consulting Provider: NUTRITION Reason for Dietary Consult: MST Score - Diet and Activity Diet: diabetic diet, low salt diet - Attending Attestation Patient seen and examined. I agree with the discharge plan as documented above by the resident. In summary, pt presented with confusion and sepsis from community acquired pneumonia. Infectious eval including cultures negative after 48h. Pt responded well to broad spectrum abx with resolution of acute metabolic encephalopathy, and was transitioned to PO levaquin. On day of d/c, did still have some diaphoresis although no fevers and pt requesting to leave due to improved clinical status, and agrees to taking PO abx and close outpatient follow up which is reasonable.
[2019-04-10 07:57] VITALS: BP 185/82
[2019-04-10] MEDS: Insulin LISPRO 300 UNITS/3 ML VIAL SQ SCH (08:12)
[2019-04-10] MEDS: Apixaban 5 MG TABLET PO SCH (08:12)
[2019-04-10] MEDS: Bumetanide 1 MG TABLET PO SCH (08:12)
[2019-04-10] MEDS ORDERED: Aspirin Enteric Coated 81 MG Tablet PO SCH (09:00)
[2019-04-10] MEDS ORDERED: metOLazone 2.5 MG TABLET PO SCH (09:00)
[2019-04-10] MEDS ORDERED: levoFLOXacin 750 MG TABLET PO SCH (09:00)
[2019-04-10] MEDS ORDERED: Loratadine 10 MG TABLET PO SCH (09:00)
[2019-04-10] MEDS ORDERED: Spironolactone 25 MG TABLET PO SCH (09:00)
[2019-04-10] MEDS ORDERED: (Umeclidinium Bromide [Incruse Ellipta] 1 PUFF) IH SCH (09:00)
[2019-04-10] MEDS ORDERED: Isosorbide MONOnitrate (24 HR) 60 MG TAB.ER.24H PO SCH (09:00)
[2019-04-10] MEDS: Budesonide/Formoterol 160/4.5 1 PUFF INH IH SCH (11:31)
== END 2019-04-10 11:41 | disposition home or self-care (01) | DRG 871 ==
LOC: 2SOUTHHOLD 08:39 → EMEROOARM 08:39 → 2SOUTHHOLD 12:10 → SUATTDRO 16:59 → 3BNU 18:52
PROVIDERS: ADMIT Internal Medicine Nephrology; ATTEND Internal Medicine

== ENCOUNTER 2020-05-17 17:07 | Observation (INO) ==
[2020-05-17] MEDS ORDERED: Insulin Human Regular 100 UNIT in 0.9 % Sodium Chloride 100 ML IVC SCH (17:45)
[2020-05-17 18:07] LABS: Basophils # 0.1 K/mcL (0.0-0.2); Basophils % 0.6 %; Eosinophils # 0.1 K/mcL (0.0-0.6); Eosinophils % 0.8 %; Immature Granulocytes % 0.7 % (0-4); Lymphocytes # 1.6 K/mcL (0.6-4.6); Lymphocytes % 13.2 %; Mean Corpuscular HGB Conc 29.2 g/dL (31.6-35.5); Mean Corpuscular Hemoglobin 20.5 pg (28.0-33.3); Mean Corpuscular Volume 70.3 fL (83.0-100.0); Monocytes # 0.7 K/mcL (0.0-1.3); Monocytes % 6.1 %; Neutrophils # 9.4 K/mcL (1.6-8.9); Nucleated Red Blood Cells 0.8 /100 WBC (0); Platelet Count 280 K/mcL (140-400); Red Blood Count 6.83 M/mcL (3.82-4.97); Red Cell Distribution Width 22.3 % (11.5-14.5); Segmented Neutrophils % 78.6 %; White Blood Count 11.9 K/mcL (4.3-11.1)
[2020-05-17 18:28] LABS: Albumin 3.6 g/dL (3.5-5.7); Albumin/Globulin Ratio 1.3 (1.1-2.2); Bilirubin,Total 0.5 mg/dL (0.3-1.0); Calcium 8.5 mg/dL (8.6-10.3); Globulin 2.8 g/dL (2.4-3.5); Magnesium 1.9 mg/dL (1.6-2.6); Potassium 3.7 mEq/L (3.5-5.1); Total Protein 6.4 g/dL (6.4-8.9)
[2020-05-17 18:31] LABS: Troponin I 0.06 ng/mL (< 0.04)
[2020-05-17] MEDS ORDERED: Aspirin 325 MG TABLET PO ONE (18:41)
[2020-05-17 18:47] LABS: Platelet Estimate Normal (Normal)
[2020-05-17 18:48] LABS: Hypochromasia Present (Not Present); Polychromasia 1+ (Not Present)
[2020-05-17 20:00] LABS: Bilirubin,Urine Negative (Negative); Blood,Urine Negative (Negative); Clarity,Urine Clear (Clear); Color,Urine Colorless (Yellow); Glucose,Urine (UA) Normal (Normal); Ketones,Urine Negative (Negative); Leukocyte Esterase,Urine Negative (Negative); Nitrite,Urine Negative (Negative); Protein,Urine Negative (Neg-Trace); Specific Gravity,Urine 1.008 (1.010-1.025); Urobilinogen,Urine Normal (Normal)
[2020-05-17] MEDS ORDERED: Furosemide 40 MG/4 ML VIAL IVP ONE (20:00)
[2020-05-17] MEDS ORDERED: Furosemide 40 MG in 0.9 % Sodium Chloride 50 ML IV SCH (21:00)
[2020-05-17] MEDS ORDERED: Naloxone 0.4 MG/ML INJ IVP PRN (21:12)
[2020-05-17] MEDS ORDERED: *HR* Promethazine 25 MG/ML VIAL IVP PRN (21:12)
[2020-05-17] MEDS ORDERED: Acetaminophen 325 MG TABLET PO PRN (21:12)
[2020-05-17] MEDS ORDERED: Perflutren Lipid Microsphere 1.3 ML in 0.9 % Sodium Chloride 8.7 ML IVP ONE (21:14)
[2020-05-18] MEDS ORDERED: SUMAtriptan succinate 50 MG TABLET PO PRN (00:48)
[2020-05-18] MEDS ORDERED: *HR* Heparin 5,000 UNIT/ML VIAL IVP ONE (00:54)
[2020-05-18] MEDS ORDERED: *HR* Heparin 5,000 UNIT/ML VIAL IVP PRN ×2 (00:54)
[2020-05-18] MEDS ORDERED: Heparin 25,000 UNIT/250 ML D5W 25,000 UNIT/250 ML IV.SOLN IVC SCH ×3 (01:00→15:21)
[2020-05-18 02:21] LABS: Hematocrit 47.9 % (35.3-44.9); Hemoglobin 13.5 g/dL (11.5-15.4); Immature Platelets 10.6 % (1.1-6.1); Mean Corpuscular HGB Conc 28.2 g/dL (31.6-35.5); Mean Corpuscular Hemoglobin 19.4 pg (28.0-33.3); Mean Corpuscular Volume 68.9 fL (83.0-100.0); Platelet Count 213 K/mcL (140-400); Red Blood Count 6.95 M/mcL (3.82-4.97); Red Cell Distribution Width 22.5 % (11.5-14.5)
[2020-05-18 02:25] LABS: Heparin anti-factor XA UFH 0.91 IU/mL (0.30-0.70); INR 1.2; Prothrombin Time 13.9 Seconds (9.4-12.1)
[2020-05-18 02:27] LABS: Activated Partial Thrombo Time 34.7 Seconds (26.0-36.0)
[2020-05-18 06:06] LABS: Basophils # 0.1 K/mcL (0.0-0.2); Basophils % 0.6 %; Eosinophils # 0.1 K/mcL (0.0-0.6); Hematocrit 48.7 % (35.3-44.9); Hemoglobin 14.3 g/dL (11.5-15.4); Immature Granulocytes % 0.6 % (0-4); Lymphocytes # 1.5 K/mcL (0.6-4.6); Lymphocytes % 15.4 %; Mean Corpuscular HGB Conc 29.4 g/dL (31.6-35.5); Mean Corpuscular Hemoglobin 20.6 pg (28.0-33.3); Mean Corpuscular Volume 70.2 fL (83.0-100.0); Monocytes # 0.7 K/mcL (0.0-1.3); Monocytes % 6.8 %; Neutrophils # 7.3 K/mcL (1.6-8.9); Nucleated Red Blood Cells 0.6 /100 WBC (0); Platelet Count 216 K/mcL (140-400); Red Blood Count 6.94 M/mcL (3.82-4.97); Red Cell Distribution Width 22.4 % (11.5-14.5); Segmented Neutrophils % 75.6 %; White Blood Count 9.6 K/mcL (4.3-11.1)
[2020-05-18 06:17] LABS: INR 1.3; Prothrombin Time 15.1 Seconds (9.4-12.1)
[2020-05-18 06:27] LABS: Calcium 8.9 mg/dL (8.6-10.3); Chol/HDL Ratio 2.8 (0-4.9); Magnesium 2.1 mg/dL (1.6-2.6); Phosphorous 5.7 mg/dL (2.7-4.5); Potassium 3.4 mEq/L (3.5-5.1)
[2020-05-18 06:38] LABS: Thyroid Stimulating Hormone 0.422 mcIU/mL (0.340-5.600)
[2020-05-18 07:01] LABS: Anisocytosis 1+ (Not Present); Hypochromasia Present (Not Present); Platelet Estimate Normal (Normal); Polychromasia 1+ (Not Present)
[2020-05-18] MEDS: Aspirin Enteric Coated 81 MG Tablet PO SCH (07:23)
[2020-05-18] MEDS: Nicotine 14 MG PATCH.TD24 TD SCH (07:23)
[2020-05-18] MEDS: Budesonide/Formoterol 160/4.5 1 PUFF INH IH SCH ×2 (08:27→21:27)
[2020-05-18] MEDS: Tiotropium 18 MCG inhalation IH SCH (08:32)
[2020-05-18] MEDS ORDERED: Insulin DETEMIR 100 UNIT/ML X5UNITS SQ SCH (09:00)
[2020-05-18] MEDS ORDERED: Iron Sucrose Complex 400 MG in 0.9 % Sodium Chloride 250 ML IVPB SCH (12:15)
[2020-05-18] MEDS ORDERED: Iron Sucrose Complex 400 MG in 0.9 % Sodium Chloride 250 ML IVPB ONE (12:38)
[2020-05-18] MEDS ORDERED: Bumetanide 1 MG TABLET PO SCH (17:00)
[2020-05-18] MEDS: Spironolactone 25 MG TABLET PO SCH (17:12)
[2020-05-18] MEDS: Pregabalin 50 MG CAPSULE PO SCH (23:38)
[2020-05-19 02:40] LABS: Hematocrit 52.2 % (35.3-44.9); Hemoglobin 14.4 g/dL (11.5-15.4); Immature Platelets 8.8 % (1.1-6.1); Mean Corpuscular HGB Conc 27.6 g/dL (31.6-35.5); Mean Corpuscular Hemoglobin 19.4 pg (28.0-33.3); Mean Corpuscular Volume 70.3 fL (83.0-100.0); Platelet Count 212 K/mcL (140-400); Red Blood Count 7.43 M/mcL (3.82-4.97); Red Cell Distribution Width 22.5 % (11.5-14.5)
[2020-05-19 02:58] LABS: Calcium 9.2 mg/dL (8.6-10.3); Potassium 4.3 mEq/L (3.5-5.1)
[2020-05-19] MEDS ORDERED: Regadenoson 0.4 MG/5 ML SYRINGE IVP ONE (06:05)
[2020-05-19] MEDS ORDERED: Topiramate 25 MG TABLET PO SCH (09:00)
[2020-05-19] MEDS ORDERED: Apixaban 5 MG TABLET PO SCH (09:00)
[2020-05-19] MEDS ORDERED: Cyanocobalamin (B-12) 1,000 MCG TABLET PO SCH (09:00)
[2020-05-19] MEDS ORDERED: Insulin DETEMIR 100 UNIT/ML X5UNITS SQ SCH (09:00)
[2020-05-19] MEDS ORDERED: Cholecalciferol (D-3) 1,000 UNIT (25MCG) TABLET PO SCH (09:00)
[2020-05-19] MEDS: Pregabalin 50 MG CAPSULE PO SCH (10:19)
[2020-05-19] MEDS: Spironolactone 25 MG TABLET PO SCH (10:19)
[2020-05-19] MEDS: Aspirin Enteric Coated 81 MG Tablet PO SCH (10:19)
[2020-05-19] MEDS: Tiotropium 18 MCG inhalation IH SCH (10:19)
[2020-05-19] MEDS: Nicotine 14 MG PATCH.TD24 TD SCH (10:19)
[2020-05-19] MEDS: Budesonide/Formoterol 160/4.5 1 PUFF INH IH SCH (10:20)
[2020-05-19 11:03] VITALS: BP 119/79
[2020-05-19] MEDS ORDERED: Furosemide 40 MG/4 ML VIAL IVP ONE (11:23)
[2020-05-19] MEDS ORDERED: Insulin LISPRO 300 UNITS/3 ML VIAL SQ SCH ×2 (11:30→21:00)
[2020-05-19] MEDS ORDERED: Apixaban 5 MG TABLET PO ONE (13:46)
== END 2020-05-19 14:21 | disposition home or self-care (01) ==
LOC: 2NENU 17:07 → EMEROOARM 17:07 → 2NENU 21:49 → 3BNU 05-18 13:10
PROVIDERS: ADMIT Student in an Organized Health Care Education/Training Program; ATTEND Student in an Organized Health Care Education/Training Program

== ENCOUNTER 2020-07-18 18:03 | Observation (INO) ==
[2020-07-18] MEDS ORDERED: Isovue-370 500 ML BOTTLE IVP ONE (18:38)
[2020-07-18] MEDS ORDERED: Ondansetron 4 MG/2 ML VIAL IVP ONE (18:39)
[2020-07-18] MEDS ORDERED: 0.9 % Sodium Chloride 1,000 ML IVC ONE (18:39)
[2020-07-18 19:02] LABS: Platelet Count 293 K/mcL (140-400)
[2020-07-18 19:04] LABS: Basophils # 0.1 K/mcL (0.0-0.2); Basophils % 0.5 %; Eosinophils % 0.2 %; Hematocrit 48.2 % (35.3-44.9); Hemoglobin 13.8 g/dL (11.5-15.4); Immature Platelets 12.1 % (1.1-6.1); Lymphocytes # 0.9 K/mcL (0.6-4.6); Lymphocytes % 5.8 %; Mean Corpuscular HGB Conc 28.6 g/dL (31.6-35.5); Mean Corpuscular Hemoglobin 19.8 pg (28.0-33.3); Mean Corpuscular Volume 69.2 fL (83.0-100.0); Monocytes % 6.2 %; Neutrophils # 13.6 K/mcL (1.6-8.9); Red Blood Count 6.97 M/mcL (3.82-4.97); Red Cell Distribution Width 25.2 % (11.5-14.5); Segmented Neutrophils % 86.3 %; White Blood Count 15.8 K/mcL (4.3-11.1)
[2020-07-18 19:15] LABS: INR 1.3
[2020-07-18 19:18] LABS: Activated Partial Thrombo Time 33.3 Seconds (26.0-36.0)
[2020-07-18 19:21] LABS: Anisocytosis 2+ (Not Present); Microcytosis Present (Not Present); Platelet Estimate Normal (Normal)
[2020-07-18 20:03] LABS: BUN/Creatinine Ratio 20 (6-26); Blood Urea Nitrogen 21 mg/dL (6-20); Calcium 8.5 mg/dL (8.6-10.3); Carbon Dioxide 27 mEq/L (23-29); Chloride 92 mEq/L (98-107); Glucose 546 mg/dL (70-105); Osmolality,Calculated 292 (280-300); Potassium 4.1 mEq/L (3.5-5.1); Sodium 127 mEq/L (136-145); Troponin I 0.03 ng/mL (< 0.04); eGFR For African Americans > 60 (> 60); eGFR For Non-African Americans 54 (> 60)
[2020-07-18 20:14] LABS: Bacteria,Urine Few per hpf (None-Few); Bilirubin,Urine Negative (Negative); Blood,Urine Negative (Negative); Clarity,Urine Clear (Clear); Color,Urine Light-Yellow (Yellow); Glucose,Urine (UA) >=1000 mg/dL (Normal); Ketones,Urine Negative (Negative); Leukocyte Esterase,Urine Negative (Negative); Nitrite,Urine Negative (Negative); Protein,Urine 70 mg/dL (Neg-Trace); RBC,Urine 0-3 per hpf (0-3); Specific Gravity,Urine 1.026 (1.010-1.025); Squamous Epithelial Cell,Urine Few per hpf (None-Few); Urobilinogen,Urine Normal (Normal); WBC,Urine 0-3 per hpf (0-3)
[2020-07-18] MEDS ORDERED: Insulin Human Regular 100 UNIT in 0.9 % Sodium Chloride 100 ML IVC SCH (20:15)
[2020-07-18] MEDS ORDERED: cefTRIAXone 1,000 MG in Water for inj. (sterile) 10 ML IVP ONE (21:22)
[2020-07-18] MEDS ORDERED: Azithromycin 500 MG in 0.9 % Sodium Chloride 250 ML IVPB ONE (21:22)
[2020-07-18 22:03] LABS: Adenovirus Not Detected (Not Detect); Bordetella Pertussis Not Detected (Not Detect); Chlamydophila pneumoniae Not Detected (Not Detect); Coronavirus 229E Not Detected (Not Detect); Coronavirus HKU1 Not Detected (Not Detect); Coronavirus NL63 Not Detected (Not Detect); Coronavirus OC43 Not Detected (Not Detect); Human Metapneumovirus Not Detected (Not Detect); Human Rhinovirus/Enterovirus Not Detected (Not Detect); Influenza A Subtype 2009 H1 Not Detected (Not Detect); Influenza B Not Detected (Not Detect); Mycoplasma pneumoniae Not Detected (Not Detect); Parainfluenza Virus 1 Not Detected (Not Detect); Parainfluenza Virus 2 Not Detected (Not Detect); Parainfluenza Virus 3 Not Detected (Not Detect); Parainfluenza Virus 4 Not Detected (Not Detect); Respiratory Syncytial Virus Not Detected (Not Detect); SARS-CoV-2 Not Detected (Not Detect)
[2020-07-18] MEDS ORDERED: Azithromycin 500 MG VIAL ONE (22:28)
[2020-07-18] MEDS: 0.9 % Sodium Chloride 1,000 ML IVC SCH (22:36)
[2020-07-19] MEDS ORDERED: Naloxone 0.4 MG/ML INJ IVP PRN (00:08)
[2020-07-19] MEDS ORDERED: *HR* Dextrose 50 % in Water (Vial) 50 ML VIAL IVP PRN (00:41)
[2020-07-19] MEDS ORDERED: 0.9 % Sodium Chloride w KCl 20 MEQ/1,000 ML MLS IVC PRN (00:45)
[2020-07-19] MEDS ORDERED: D5% in 0.45% NACL 1,000 ML IVC PRN (01:02)
[2020-07-19] MEDS ORDERED: D5% in 0.45% NACL w KCl 20 MEQ/1,000 ML MLS IVC PRN (01:02)
[2020-07-19 01:04] LABS: Basophils % 0.5 %; Eosinophils % 0.5 %; Lymphocytes % 10.4 %; Mean Corpuscular Volume 69.7 fL (83.0-100.0)
[2020-07-19 01:05] LABS: VBG HCO3 29 mEq/L (21-27); VBG PCO2 51 mmHg (41-51); VBG PH 7.36 pH Units (7.32-7.42); VBG PO2 166 mmHg (25-50)
[2020-07-19 01:05] LABS: Basophils # 0.1 K/mcL (0.0-0.2); Eosinophils # 0.1 K/mcL (0.0-0.6); Hematocrit 47.6 % (35.3-44.9); Hemoglobin 13.1 g/dL (11.5-15.4); Immature Granulocytes % 0.8 % (0-4); Immature Platelets 8.9 % (1.1-6.1); Lymphocytes # 1.5 K/mcL (0.6-4.6); Mean Corpuscular HGB Conc 27.5 g/dL (31.6-35.5); Mean Corpuscular Hemoglobin 19.2 pg (28.0-33.3); Monocytes # 1.3 K/mcL (0.0-1.3); Monocytes % 8.7 %; Neutrophils # 11.6 K/mcL (1.6-8.9); Platelet Count 302 K/mcL (140-400); Red Blood Count 6.83 M/mcL (3.82-4.97); Segmented Neutrophils % 79.1 %; White Blood Count 14.7 K/mcL (4.3-11.1)
[2020-07-19 01:21] LABS: Anisocytosis 2+ (Not Present); Platelet Estimate Normal (Normal)
[2020-07-19 01:23] LABS: BUN/Creatinine Ratio 19 (6-26); Blood Urea Nitrogen 17 mg/dL (6-20); Calcium 8.3 mg/dL (8.6-10.3); Carbon Dioxide 27 mEq/L (23-29); Chloride 100 mEq/L (98-107); Glucose 230 mg/dL (70-105); Osmolality,Calculated 283 (280-300); Phosphorous 2.3 mg/dL (2.7-4.5); Potassium 3.3 mEq/L (3.5-5.1); Sodium 132 mEq/L (136-145); eGFR For African Americans > 60 (> 60); eGFR For Non-African Americans > 60 (> 60)
[2020-07-19 01:56] LABS: Amphetamine Screen,Urine Negative ng/mL (Cutoff=1000); Barbiturate Screen,Urine Negative ng/mL (Cutoff=200); Benzodiazepines Screen,Urine Negative ng/mL (Cutoff=200); Cannabinoid Screen,Urine Negative ng/mL (Cutoff = 50); Cocaine Screen,Urine Negative ng/mL (Cutoff= 300); Opiate Screen,Urine Negative ng/mL (Cutoff=300); Phencyclidine Screen,Urine Negative ng/mL (Cutoff=25)
[2020-07-19] MEDS ORDERED: D5% in Water 1,000 ML IVC PRN (02:08)
[2020-07-19] MEDS ORDERED: Dextrose Gel 15 GM/37.5 ML TUBE PO PRN ×2 (02:08)
[2020-07-19] MEDS ORDERED: Insulin DETEMIR 100 UNIT/ML X5UNITS SQ SCH (02:15)
[2020-07-19] MEDS ORDERED: Insulin LISPRO 300 UNITS/3 ML VIAL SQ SCH ×2 (07:30→21:00)
[2020-07-19] MEDS ORDERED: Potassium Phosphate 44 MEQ in 0.9 % Sodium Chloride 250 ML IVPB ONE (07:30)
[2020-07-19] MEDS: Apixaban 5 MG TABLET PO SCH ×2 (07:54→21:11)
[2020-07-19] MEDS: Azithromycin 250 MG TABLET PO SCH (07:54)
[2020-07-19] MEDS: Aspirin Enteric Coated 81 MG Tablet PO SCH (07:54)
[2020-07-19] MEDS: cefTRIAXone 1,000 MG in Water for inj. (sterile) 10 ML IVP SCH (07:54)
[2020-07-19] MEDS: Insulin LISPRO 300 UNITS/3 ML VIAL SQ SCH ×4 (08:05→21:12)
[2020-07-19] MEDS: 0.9 % Sodium Chloride 1,000 ML IVC SCH (12:03)
[2020-07-19 12:08] LABS: Estimated Average Glucose 418 mg/dl
[2020-07-19] MEDS: LIPASE PO SCH (15:46)
[2020-07-19] MEDS: AMYLASE PO SCH (15:46)
[2020-07-19] MEDS: PROTEASE PO SCH (15:46)
[2020-07-19] MEDS: Budesonide/Formoterol 160/4.5 1 PUFF INH IH SCH (19:45)
[2020-07-19] MEDS: Topiramate 25 MG TABLET PO SCH (21:11)
[2020-07-19] MEDS: Insulin DETEMIR 100 UNIT/ML X5UNITS SQ SCH (21:11)
[2020-07-19] MEDS: Pregabalin 50 MG CAPSULE PO SCH (21:11)
[2020-07-20 00:52] LABS: Eosinophils % 0.7 %; Immature Granulocytes % 0.7 % (0-4); Mean Corpuscular Volume 70.5 fL (83.0-100.0); Red Cell Distribution Width 25.9 % (11.5-14.5); Segmented Neutrophils % 83.9 %
[2020-07-20 00:54] LABS: Basophils # 0.1 K/mcL (0.0-0.2); Basophils % 0.5 %; Eosinophils # 0.1 K/mcL (0.0-0.6); Hematocrit 50.5 % (35.3-44.9); Hemoglobin 13.8 g/dL (11.5-15.4); Immature Platelets 6.8 % (1.1-6.1); Lymphocytes % 6.6 %; Mean Corpuscular HGB Conc 27.3 g/dL (31.6-35.5); Mean Corpuscular Hemoglobin 19.3 pg (28.0-33.3); Monocytes # 1.2 K/mcL (0.0-1.3); Monocytes % 7.6 %; Nucleated Red Blood Cells 0.1 /100 WBC (0); Platelet Count 319 K/mcL (140-400); Red Blood Count 7.16 M/mcL (3.82-4.97); White Blood Count 15.3 K/mcL (4.3-11.1)
[2020-07-20 00:56] LABS: Neutrophils # 12.8 K/mcL (1.6-8.9)
[2020-07-20 01:18] LABS: BUN/Creatinine Ratio 20 (6-26); Blood Urea Nitrogen 18 mg/dL (6-20); Calcium 8.8 mg/dL (8.6-10.3); Carbon Dioxide 27 mEq/L (23-29); Chloride 99 mEq/L (98-107); Glucose 287 mg/dL (70-105); Osmolality,Calculated 288 (280-300); Potassium 4.3 mEq/L (3.5-5.1); Sodium 133 mEq/L (136-145); eGFR For African Americans > 60 (> 60); eGFR For Non-African Americans > 60 (> 60)
[2020-07-20 01:19] LABS: Anisocytosis 1+ (Not Present); Platelet Estimate Normal (Normal); Polychromasia 1+ (Not Present)
[2020-07-20] MEDS: Budesonide/Formoterol 160/4.5 1 PUFF INH IH SCH ×2 (07:42→19:39)
[2020-07-20] MEDS: Insulin LISPRO 300 UNITS/3 ML VIAL SQ SCH ×4 (08:40→22:09)
[2020-07-20] MEDS: Pregabalin 50 MG CAPSULE PO SCH ×2 (08:42→22:08)
[2020-07-20] MEDS: Apixaban 5 MG TABLET PO SCH ×2 (08:42→22:08)
[2020-07-20] MEDS: Bumetanide 1 MG TABLET PO SCH (08:42)
[2020-07-20] MEDS: Cyanocobalamin (B-12) 1,000 MCG TABLET PO SCH (08:42)
[2020-07-20] MEDS: Azithromycin 250 MG TABLET PO SCH (08:43)
[2020-07-20] MEDS: Loratadine 10 MG TABLET PO SCH (08:43)
[2020-07-20] MEDS: Aspirin Enteric Coated 81 MG Tablet PO SCH (08:43)
[2020-07-20] MEDS: Topiramate 25 MG TABLET PO SCH ×2 (08:43→22:08)
[2020-07-20] MEDS: Spironolactone 25 MG TABLET PO SCH (08:44)
[2020-07-20] MEDS: AMYLASE PO SCH ×3 (08:47→17:08)
[2020-07-20] MEDS: PROTEASE PO SCH ×3 (08:47→17:08)
[2020-07-20] MEDS: cefTRIAXone 1,000 MG in Water for inj. (sterile) 10 ML IVP SCH (08:47)
[2020-07-20] MEDS: LIPASE PO SCH ×3 (08:47→17:08)
[2020-07-20] MEDS: Insulin DETEMIR 100 UNIT/ML X5UNITS SQ SCH (22:08)
[2020-07-21 06:08] LABS: Hematocrit 51.5 % (35.3-44.9); Immature Platelets 6.2 % (1.1-6.1); Mean Corpuscular HGB Conc 27.2 g/dL (31.6-35.5); Mean Corpuscular Hemoglobin 19.3 pg (28.0-33.3); Platelet Count 336 K/mcL (140-400); Red Blood Count 7.25 M/mcL (3.82-4.97); Red Cell Distribution Width 26.2 % (11.5-14.5); White Blood Count 13.5 K/mcL (4.3-11.1)
[2020-07-21 06:22] LABS: BUN/Creatinine Ratio 22 (6-26); Blood Urea Nitrogen 17 mg/dL (6-20); Carbon Dioxide 26 mEq/L (23-29); Chloride 98 mEq/L (98-107); Glucose 228 mg/dL (70-105); Osmolality,Calculated 285 (280-300); Potassium 3.7 mEq/L (3.5-5.1); Sodium 133 mEq/L (136-145); eGFR For African Americans > 60 (> 60); eGFR For Non-African Americans > 60 (> 60)
[2020-07-21] MEDS: Budesonide/Formoterol 160/4.5 1 PUFF INH IH SCH ×2 (08:02→21:29)
[2020-07-21] MEDS: cefTRIAXone 1,000 MG in Water for inj. (sterile) 10 ML IVP SCH (08:25)
[2020-07-21] MEDS: Azithromycin 250 MG TABLET PO SCH (08:27)
[2020-07-21] MEDS: Pregabalin 50 MG CAPSULE PO SCH ×2 (08:28→20:01)
[2020-07-21] MEDS: Cyanocobalamin (B-12) 1,000 MCG TABLET PO SCH (08:28)
[2020-07-21] MEDS: Spironolactone 25 MG TABLET PO SCH (08:28)
[2020-07-21] MEDS: Bumetanide 1 MG TABLET PO SCH (08:28)
[2020-07-21] MEDS: Aspirin Enteric Coated 81 MG Tablet PO SCH (08:28)
[2020-07-21] MEDS: Apixaban 5 MG TABLET PO SCH ×2 (08:28→20:01)
[2020-07-21] MEDS: Topiramate 25 MG TABLET PO SCH ×2 (08:28→20:01)
[2020-07-21] MEDS: Loratadine 10 MG TABLET PO SCH (08:28)
[2020-07-21] MEDS: Insulin LISPRO 300 UNITS/3 ML VIAL SQ SCH ×4 (08:29→20:02)
[2020-07-21] MEDS: AMYLASE PO SCH ×3 (08:37→16:09)
[2020-07-21] MEDS: LIPASE PO SCH ×3 (08:37→16:09)
[2020-07-21] MEDS: PROTEASE PO SCH ×3 (08:37→16:09)
[2020-07-21] MEDS: Insulin DETEMIR 100 UNIT/ML X5UNITS SQ SCH (20:02)
[2020-07-22] MEDS: Budesonide/Formoterol 160/4.5 1 PUFF INH IH SCH ×2 (07:26→21:26)
[2020-07-22] MEDS: Azithromycin 250 MG TABLET PO SCH (07:49)
[2020-07-22] MEDS: Apixaban 5 MG TABLET PO SCH ×2 (07:49→20:40)
[2020-07-22] MEDS: Cyanocobalamin (B-12) 1,000 MCG TABLET PO SCH (07:49)
[2020-07-22] MEDS: Bumetanide 1 MG TABLET PO SCH (07:49)
[2020-07-22] MEDS: Topiramate 25 MG TABLET PO SCH ×2 (07:49→20:40)
[2020-07-22] MEDS: Spironolactone 25 MG TABLET PO SCH (07:49)
[2020-07-22] MEDS: Pregabalin 50 MG CAPSULE PO SCH ×2 (07:50→20:40)
[2020-07-22] MEDS: cefTRIAXone 1,000 MG in Water for inj. (sterile) 10 ML IVP SCH (07:50)
[2020-07-22] MEDS: Loratadine 10 MG TABLET PO SCH (07:50)
[2020-07-22] MEDS: Insulin LISPRO 300 UNITS/3 ML VIAL SQ SCH ×4 (07:50→20:41)
[2020-07-22] MEDS: Aspirin Enteric Coated 81 MG Tablet PO SCH (07:50)
[2020-07-22] MEDS ORDERED: tiZANidine 4 MG TABLET PO ONE (08:04)
[2020-07-22] MEDS: LIPASE PO SCH ×3 (08:08→16:23)
[2020-07-22] MEDS: PROTEASE PO SCH ×3 (08:08→16:23)
[2020-07-22] MEDS: AMYLASE PO SCH ×3 (08:08→16:23)
[2020-07-22 08:41] LABS: Red Cell Distribution Width 26.1 % (11.5-14.5)
[2020-07-22 08:43] LABS: Hematocrit 51.6 % (35.3-44.9); Hemoglobin 14.1 g/dL (11.5-15.4); Immature Platelets 5.8 % (1.1-6.1); Mean Corpuscular HGB Conc 27.3 g/dL (31.6-35.5); Mean Corpuscular Hemoglobin 19.4 pg (28.0-33.3); Mean Corpuscular Volume 71.1 fL (83.0-100.0); Platelet Count 349 K/mcL (140-400); Red Blood Count 7.26 M/mcL (3.82-4.97); White Blood Count 15.2 K/mcL (4.3-11.1)
[2020-07-22 09:01] LABS: BUN/Creatinine Ratio 28 (6-26); Blood Urea Nitrogen 22 mg/dL (6-20); Carbon Dioxide 29 mEq/L (23-29); Chloride 97 mEq/L (98-107); Glucose 262 mg/dL (70-105); Osmolality,Calculated 294 (280-300); Potassium 3.9 mEq/L (3.5-5.1); Sodium 136 mEq/L (136-145); eGFR For African Americans > 60 (> 60); eGFR For Non-African Americans > 60 (> 60)
[2020-07-22] MEDS: Insulin DETEMIR 100 UNIT/ML X5UNITS SQ SCH (20:41)
[2020-07-23] MEDS: Budesonide/Formoterol 160/4.5 1 PUFF INH IH SCH (08:04)
[2020-07-23] MEDS: LIPASE PO SCH ×2 (08:05→13:04)
[2020-07-23] MEDS: AMYLASE PO SCH ×2 (08:05→13:04)
[2020-07-23] MEDS: PROTEASE PO SCH ×2 (08:05→13:04)
[2020-07-23] MEDS: Insulin LISPRO 300 UNITS/3 ML VIAL SQ SCH ×2 (08:28→13:01)
[2020-07-23 09:27] LABS: Red Blood Count 7.49 M/mcL (3.82-4.97)
[2020-07-23 09:29] LABS: Hematocrit 53.5 % (35.3-44.9); Hemoglobin 14.5 g/dL (11.5-15.4); Immature Platelets 6.1 % (1.1-6.1); Mean Corpuscular HGB Conc 27.1 g/dL (31.6-35.5); Mean Corpuscular Hemoglobin 19.4 pg (28.0-33.3); Mean Corpuscular Volume 71.4 fL (83.0-100.0); Platelet Count 368 K/mcL (140-400); Red Cell Distribution Width 26.5 % (11.5-14.5); White Blood Count 13.9 K/mcL (4.3-11.1)
[2020-07-23] MEDS: Bumetanide 1 MG TABLET PO SCH (09:32)
[2020-07-23] MEDS: Cyanocobalamin (B-12) 1,000 MCG TABLET PO SCH (09:33)
[2020-07-23] MEDS: Spironolactone 25 MG TABLET PO SCH (09:33)
[2020-07-23] MEDS: Azithromycin 250 MG TABLET PO SCH (09:34)
[2020-07-23] MEDS: Pregabalin 50 MG CAPSULE PO SCH (09:34)
[2020-07-23] MEDS: cefTRIAXone 1,000 MG in Water for inj. (sterile) 10 ML IVP SCH (09:34)
[2020-07-23] MEDS: Apixaban 5 MG TABLET PO SCH (09:34)
[2020-07-23] MEDS: Aspirin Enteric Coated 81 MG Tablet PO SCH (09:34)
[2020-07-23] MEDS: Topiramate 25 MG TABLET PO SCH (09:34)
[2020-07-23] MEDS: Loratadine 10 MG TABLET PO SCH (09:37)
[2020-07-23 09:39] LABS: BUN/Creatinine Ratio 34 (6-26); Blood Urea Nitrogen 27 mg/dL (6-20); Calcium 9.6 mg/dL (8.6-10.3); Carbon Dioxide 27 mEq/L (23-29); Chloride 98 mEq/L (98-107); Glucose 245 mg/dL (70-105); Osmolality,Calculated 291 (280-300); Potassium 4.2 mEq/L (3.5-5.1); Sodium 134 mEq/L (136-145); eGFR For African Americans > 60 (> 60); eGFR For Non-African Americans > 60 (> 60)
[2020-07-23 11:12] VITALS: BP 152/79
== END 2020-07-23 15:34 | disposition critical access hospital (66) ==
LOC: EMEROOARM 18:03 → 2NNU 18:03 → SUATTDRO 22:12 → 2NNU 23:20 → 3BNU 07-19 10:52
PROVIDERS: ADMIT Family Medicine; ATTEND Nurse Practitioner Adult Health

== ENCOUNTER 2020-09-09 16:37 | Inpatient (IN) ==
[2020-09-09] MEDS ORDERED: *HR* OxyCODONE Immed Rel 5 MG TABLET PO STA (17:01)
[2020-09-09 19:43] LABS: Basophils # 0.1 K/mcL (0.0-0.2); Basophils % 0.7 %; Eosinophils # 0.1 K/mcL (0.0-0.6); Eosinophils % 0.8 %; Hemoglobin 15.5 g/dL (11.5-15.4); Immature Granulocytes % 0.6 % (0-4); Lymphocytes # 1.7 K/mcL (0.6-4.6); Lymphocytes % 11.7 %; Mean Corpuscular HGB Conc 27.6 g/dL (31.6-35.5); Mean Corpuscular Volume 72.4 fL (83.0-100.0); Monocytes # 0.7 K/mcL (0.0-1.3); Monocytes % 5.1 %; Neutrophils # 11.5 K/mcL (1.6-8.9); Nucleated Red Blood Cells 0.3 /100 WBC (0); Platelet Count 139 K/mcL (140-400); Red Blood Count 7.75 M/mcL (3.82-4.97); Red Cell Distribution Width 25.3 % (11.5-14.5); Segmented Neutrophils % 81.1 %; White Blood Count 14.2 K/mcL (4.3-11.1)
[2020-09-09 19:47] LABS: Hematocrit 56.1 % (35.3-44.9)
[2020-09-09 19:53] LABS: BUN/Creatinine Ratio 20 (6-26); Blood Urea Nitrogen 24 mg/dL (6-20); Carbon Dioxide 30 mEq/L (23-29); Chloride 90 mEq/L (98-107); Glucose 131 mg/dL (70-105); Osmolality,Calculated 276 (280-300); Potassium 3.2 mEq/L (3.5-5.1); Sodium 130 mEq/L (136-145); Troponin I < 0.03 ng/mL (< 0.04); eGFR For African Americans 57 (> 60); eGFR For Non-African Americans 47 (> 60)
[2020-09-09 20:08] LABS: Platelet Estimate Normal (Normal)
[2020-09-09 20:28] LABS: INR 1.6
[2020-09-09 20:31] LABS: Activated Partial Thrombo Time 29.4 Seconds (26.0-36.0)
[2020-09-09 21:04] LABS: VBG HCO3 32 mEq/L (21-27); VBG PCO2 51 mmHg (41-51); VBG PO2 219 mmHg (25-50)
[2020-09-09] MEDS ORDERED: *HR* Dextrose 50 % in Water (Vial) 50 ML VIAL IVP ONE (22:22)
[2020-09-09] MEDS ORDERED: *HR* Atropine Sulfate 1 MG/10 ML SYRINGE ONE (23:13)
[2020-09-09] MEDS ORDERED: *HR* Atropine Sulfate 1 MG/10 ML SYRINGE IVP ONE (23:16)
[2020-09-09] MEDS ORDERED: 0.9 % Sodium Chloride 1,000 ML ONE (23:20)
[2020-09-09] MEDS ORDERED: 0.9 % Sodium Chloride 1,000 ML IVC ONE (23:24)
[2020-09-10] MEDS: D5% in 0.9% NACL 1,000 ML IVC SCH (11:43)
[2020-09-10] MEDS ORDERED: Nitroglycerin 0.4 MG TAB.SUBL SL PRN (12:35)
[2020-09-10] MEDS ORDERED: Naloxone 0.4 MG/ML INJ IVP PRN (12:39)
[2020-09-10] MEDS ORDERED: Dextrose Gel 15 GM/37.5 ML TUBE PO PRN ×2 (12:50)
[2020-09-10] MEDS ORDERED: D5% in Water 1,000 ML IVC PRN (12:50)
[2020-09-10] MEDS ORDERED: *HR* Dextrose 50 % in Water (Vial) 50 ML VIAL IVP PRN (12:50)
[2020-09-10] MEDS: 0.9 % Sodium Chloride w KCl 20 MEQ/1,000 ML MLS IVC SCH ×2 (13:29→21:29)
[2020-09-10 13:52] LABS: Amphetamine Screen,Urine Negative ng/mL (Cutoff=1000); Barbiturate Screen,Urine Negative ng/mL (Cutoff=200); Benzodiazepines Screen,Urine Negative ng/mL (Cutoff=200); Cannabinoid Screen,Urine Negative ng/mL (Cutoff = 50); Cocaine Screen,Urine Negative ng/mL (Cutoff= 300); Opiate Screen,Urine Negative ng/mL (Cutoff=300); Phencyclidine Screen,Urine Negative ng/mL (Cutoff=25)
[2020-09-10] MEDS: Insulin LISPRO 300 UNITS/3 ML VIAL SQ SCH (16:48)
[2020-09-10] MEDS ORDERED: Budesonide/Formoterol 160/4.5 1 PUFF INH IH ONE (19:21)
[2020-09-10] MEDS: Topiramate 25 MG TABLET PO SCH (21:31)
[2020-09-10] MEDS: Budesonide/Formoterol 160/4.5 1 PUFF INH IH SCH (21:47)
[2020-09-11 04:01] LABS: Hematocrit 47.7 % (35.3-44.9); Immature Platelets 8.8 % (1.1-6.1); Mean Corpuscular HGB Conc 27.3 g/dL (31.6-35.5); Mean Corpuscular Hemoglobin 19.5 pg (28.0-33.3); Mean Corpuscular Volume 71.6 fL (83.0-100.0); Platelet Count 148 K/mcL (140-400); Red Blood Count 6.66 M/mcL (3.82-4.97); Red Cell Distribution Width 24.5 % (11.5-14.5); White Blood Count 10.5 K/mcL (4.3-11.1)
[2020-09-11 04:13] LABS: BUN/Creatinine Ratio 25 (6-26); Blood Urea Nitrogen 20 mg/dL (6-20); Calcium 8.1 mg/dL (8.6-10.3); Carbon Dioxide 29 mEq/L (23-29); Chloride 102 mEq/L (98-107); Glucose 193 mg/dL (70-105); Magnesium 1.9 mg/dL (1.6-2.6); Osmolality,Calculated 288 (280-300); Potassium 3.9 mEq/L (3.5-5.1); Sodium 135 mEq/L (136-145); eGFR For African Americans > 60 (> 60); eGFR For Non-African Americans > 60 (> 60)
[2020-09-11] MEDS: 0.9 % Sodium Chloride w KCl 20 MEQ/1,000 ML MLS IVC SCH ×3 (05:42→19:52)
[2020-09-11] MEDS: D5% in 0.9% NACL 1,000 ML IVC SCH (06:43)
[2020-09-11] MEDS: Insulin LISPRO 300 UNITS/3 ML VIAL SQ SCH ×3 (07:46→16:07)
[2020-09-11] MEDS: Topiramate 25 MG TABLET PO SCH ×2 (07:56→21:07)
[2020-09-11] MEDS: Budesonide/Formoterol 160/4.5 1 PUFF INH IH SCH ×2 (08:04→20:36)
[2020-09-11] MEDS ORDERED: Acetaminophen 325 MG TABLET PO PRN (08:11)
[2020-09-11] MEDS ORDERED: Cholecalciferol (D-3) 1,000 UNIT (25MCG) TABLET PO SCH (09:00)
[2020-09-11] MEDS ORDERED: Tiotropium 18 MCG inhalation IH SCH (09:00)
[2020-09-11] MEDS ORDERED: Fluticasone Propionate Nasal 50 MCG/SPRAY BOTTLE NS SCH (09:00)
[2020-09-11] MEDS ORDERED: Naloxone 0.4 MG/ML INJ IVP PRN (11:48)
[2020-09-11] MEDS ORDERED: *HR* Dextrose 50 % in Water (Vial) 50 ML VIAL IVP PRN (11:48)
[2020-09-11] MEDS ORDERED: Dextrose Gel 15 GM/37.5 ML TUBE PO PRN ×2 (11:48)
[2020-09-11] MEDS ORDERED: D5% in Water 1,000 ML IVC PRN (11:48)
[2020-09-11] MEDS ORDERED: Nitroglycerin 0.4 MG TAB.SUBL SL PRN (11:48)
[2020-09-11] MEDS: Acetaminophen 325 MG TABLET PO PRN (21:07)
[2020-09-12 02:01] LABS: Hematocrit 47.8 % (35.3-44.9); Hemoglobin 13.1 g/dL (11.5-15.4); Mean Corpuscular HGB Conc 27.4 g/dL (31.6-35.5); Mean Corpuscular Hemoglobin 20.2 pg (28.0-33.3); Mean Corpuscular Volume 73.9 fL (83.0-100.0); Platelet Count 125 K/mcL (140-400); Red Blood Count 6.47 M/mcL (3.82-4.97); Red Cell Distribution Width 24.9 % (11.5-14.5); White Blood Count 8.1 K/mcL (4.3-11.1)
[2020-09-12 02:19] LABS: BUN/Creatinine Ratio 19 (6-26); Blood Urea Nitrogen 17 mg/dL (6-20); Calcium 8.6 mg/dL (8.6-10.3); Carbon Dioxide 26 mEq/L (23-29); Chloride 104 mEq/L (98-107); Glucose 267 mg/dL (70-105); Osmolality,Calculated 291 (280-300); Sodium 135 mEq/L (136-145); eGFR For African Americans > 60 (> 60); eGFR For Non-African Americans > 60 (> 60)
[2020-09-12] MEDS: 0.9 % Sodium Chloride w KCl 20 MEQ/1,000 ML MLS IVC SCH (03:41)
[2020-09-12] MEDS: Cholecalciferol (D-3) 1,000 UNIT (25MCG) TABLET PO SCH (08:45)
[2020-09-12] MEDS: Topiramate 25 MG TABLET PO SCH ×2 (08:45→21:27)
[2020-09-12] MEDS: Insulin LISPRO 300 UNITS/3 ML VIAL SQ SCH ×3 (08:48→17:10)
[2020-09-12] MEDS: Acetaminophen 325 MG TABLET PO PRN ×2 (08:49→21:27)
[2020-09-12] MEDS ORDERED: Metoprolol XL (24 HR) Succ 50 MG TAB.ER.24H PO SCH (09:00)
[2020-09-12] MEDS: Tiotropium 18 MCG inhalation IH SCH (10:01)
[2020-09-12] MEDS: Budesonide/Formoterol 160/4.5 1 PUFF INH IH SCH ×2 (10:02→19:37)
[2020-09-12] MEDS: Fluticasone Propionate Nasal 50 MCG/SPRAY BOTTLE NS SCH (11:12)
[2020-09-12] MEDS ORDERED: Insulin DETEMIR 100 UNIT/ML X5UNITS SQ SCH (21:00)
[2020-09-12] MEDS: Insulin DETEMIR 100 UNIT/ML X5UNITS SQ SCH (21:28)
[2020-09-13 05:50] LABS: BUN/Creatinine Ratio 29 (6-26); Blood Urea Nitrogen 21 mg/dL (6-20); Calcium 8.8 mg/dL (8.6-10.3); Carbon Dioxide 23 mEq/L (23-29); Chloride 105 mEq/L (98-107); Glucose 203 mg/dL (70-105); Magnesium 1.9 mg/dL (1.6-2.6); Osmolality,Calculated 287 (280-300); Potassium 4.2 mEq/L (3.5-5.1); Sodium 134 mEq/L (136-145); eGFR For African Americans > 60 (> 60); eGFR For Non-African Americans > 60 (> 60)
[2020-09-13 05:55] LABS: Hematocrit 46.8 % (35.3-44.9); Hemoglobin 12.6 g/dL (11.5-15.4); Immature Platelets 7.2 % (1.1-6.1); Mean Corpuscular HGB Conc 26.9 g/dL (31.6-35.5); Mean Corpuscular Hemoglobin 19.7 pg (28.0-33.3); Mean Corpuscular Volume 73.2 fL (83.0-100.0); Platelet Count 146 K/mcL (140-400); Red Blood Count 6.39 M/mcL (3.82-4.97); Red Cell Distribution Width 24.8 % (11.5-14.5); White Blood Count 8.2 K/mcL (4.3-11.1)
[2020-09-13] MEDS: Budesonide/Formoterol 160/4.5 1 PUFF INH IH SCH ×2 (07:30→20:39)
[2020-09-13] MEDS: Tiotropium 18 MCG inhalation IH SCH (07:30)
[2020-09-13] MEDS: Topiramate 25 MG TABLET PO SCH ×2 (08:46→20:09)
[2020-09-13] MEDS: Metoprolol XL (24 HR) Succ 25 MG TAB.ER.24H PO SCH (08:47)
[2020-09-13] MEDS: Insulin DETEMIR 100 UNIT/ML X5UNITS SQ SCH ×2 (08:47→20:09)
[2020-09-13] MEDS: Cholecalciferol (D-3) 1,000 UNIT (25MCG) TABLET PO SCH (08:47)
[2020-09-13] MEDS: Insulin LISPRO 300 UNITS/3 ML VIAL SQ SCH ×3 (08:48→16:26)
[2020-09-13] MEDS: Fluticasone Propionate Nasal 50 MCG/SPRAY BOTTLE NS SCH (08:48)
[2020-09-13] MEDS: Acetaminophen 325 MG TABLET PO PRN (09:04)
[2020-09-13] MEDS: Apixaban 5 MG TABLET PO SCH ×2 (11:58→20:09)
[2020-09-14] MEDS: Acetaminophen 325 MG TABLET PO PRN (04:27)
[2020-09-14 06:10] LABS: Hematocrit 47.8 % (35.3-44.9); Hemoglobin 13.5 g/dL (11.5-15.4); Immature Platelets 4.8 % (1.1-6.1); Mean Corpuscular HGB Conc 28.2 g/dL (31.6-35.5); Mean Corpuscular Hemoglobin 20.4 pg (28.0-33.3); Mean Corpuscular Volume 72.1 fL (83.0-100.0); Platelet Count 162 K/mcL (140-400); Red Blood Count 6.63 M/mcL (3.82-4.97); Red Cell Distribution Width 24.8 % (11.5-14.5); White Blood Count 8.9 K/mcL (4.3-11.1)
[2020-09-14 06:29] LABS: BUN/Creatinine Ratio 27 (6-26); Blood Urea Nitrogen 21 mg/dL (6-20); Calcium 9.3 mg/dL (8.6-10.3); Carbon Dioxide 25 mEq/L (23-29); Chloride 104 mEq/L (98-107); Glucose 133 mg/dL (70-105); Osmolality,Calculated 283 (280-300); Potassium 4.1 mEq/L (3.5-5.1); Sodium 134 mEq/L (136-145); eGFR For African Americans > 60 (> 60); eGFR For Non-African Americans > 60 (> 60)
[2020-09-14] MEDS: Budesonide/Formoterol 160/4.5 1 PUFF INH IH SCH (07:35)
[2020-09-14] MEDS: Tiotropium 18 MCG inhalation IH SCH (07:35)
[2020-09-14] MEDS: Topiramate 25 MG TABLET PO SCH (08:45)
[2020-09-14] MEDS: Cholecalciferol (D-3) 1,000 UNIT (25MCG) TABLET PO SCH (08:45)
[2020-09-14] MEDS: Apixaban 5 MG TABLET PO SCH (08:45)
[2020-09-14] MEDS: Insulin DETEMIR 100 UNIT/ML X5UNITS SQ SCH (08:45)
[2020-09-14] MEDS: Metoprolol XL (24 HR) Succ 25 MG TAB.ER.24H PO SCH (08:45)
[2020-09-14] MEDS: Fluticasone Propionate Nasal 50 MCG/SPRAY BOTTLE NS SCH (08:46)
[2020-09-14] MEDS: Insulin LISPRO 300 UNITS/3 ML VIAL SQ SCH ×2 (08:46→11:31)
[2020-09-14 10:17] LABS: Bilirubin,Urine Negative (Negative); Blood,Urine Trace (Negative); Clarity,Urine Clear (Clear); Color,Urine Light-Yellow (Yellow); Glucose,Urine (UA) 100 mg/dL (Normal); Ketones,Urine Negative (Negative); Leukocyte Esterase,Urine Negative (Negative); Mucus,Urine Few per lpf (None-Few); Nitrite,Urine Negative (Negative); PH,Urine 7.5 pH Units (5.0-8.0); Protein,Urine 100 mg/dL (Neg-Trace); RBC,Urine 0-3 per hpf (0-3); Specific Gravity,Urine 1.014 (1.010-1.025); Squamous Epithelial Cell,Urine Few per hpf (None-Few); Urobilinogen,Urine Normal (Normal); WBC,Urine 0-3 per hpf (0-3)
[2020-09-14 20:00] VITALS: BP 126/86
== END 2020-09-14 12:08 | disposition home health service (06) | DRG 89 ==
LOC: EMEROOARM 16:37 → SUATTDRO 09-10 10:44 → ICNU 09-10 10:44 → 2ANU 09-11 20:19
PROVIDERS: ADMIT Internal Medicine; ATTEND Internal Medicine

== ENCOUNTER 2020-09-29 14:08 | Observation (INO) ==
[2020-09-29] MEDS ORDERED: Aspirin 325 MG TABLET PO ONE (14:20)
[2020-09-29 14:46] LABS: Basophils % 0.9 %; Eosinophils % 1.1 %; Mean Corpuscular HGB Conc 27.9 g/dL (31.6-35.5); Nucleated Red Blood Cells 0.5 /100 WBC (0)
[2020-09-29] MEDS: Nitroglycerin 0.4 MG TAB.SUBL SL PRN ×2 (14:46→14:51)
[2020-09-29 14:48] LABS: Basophils # 0.1 K/mcL (0.0-0.2); Eosinophils # 0.1 K/mcL (0.0-0.6); Hematocrit 52.3 % (35.3-44.9); Hemoglobin 14.6 g/dL (11.5-15.4); Immature Granulocytes % 0.3 % (0-4); Immature Platelets 6.1 % (1.1-6.1); Lymphocytes # 0.9 K/mcL (0.6-4.6); Lymphocytes % 13.2 %; Mean Corpuscular Hemoglobin 20.2 pg (28.0-33.3); Mean Corpuscular Volume 72.5 fL (83.0-100.0); Monocytes # 0.5 K/mcL (0.0-1.3); Monocytes % 7.1 %; Platelet Count 286 K/mcL (140-400); Red Blood Count 7.21 M/mcL (3.82-4.97); Red Cell Distribution Width 26.2 % (11.5-14.5); Segmented Neutrophils % 77.4 %; White Blood Count 6.5 K/mcL (4.3-11.1)
[2020-09-29 15:08] LABS: BUN/Creatinine Ratio 25 (6-26); Blood Urea Nitrogen 19 mg/dL (6-20); Calcium 9.1 mg/dL (8.6-10.3); Carbon Dioxide 27 mEq/L (23-29); Chloride 99 mEq/L (98-107); Glucose 262 mg/dL (70-105); Osmolality,Calculated 289 (280-300); Potassium 4.3 mEq/L (3.5-5.1); Sodium 134 mEq/L (136-145); Troponin I < 0.03 ng/mL (< 0.04); eGFR For African Americans > 60 (> 60); eGFR For Non-African Americans > 60 (> 60)
[2020-09-29 15:10] LABS: Anisocytosis 1+ (Not Present); Hypochromasia Present (Not Present); Platelet Estimate Slight Decrease (Normal)
[2020-09-29 15:11] LABS: Macrocytosis Present (Not Present); Ovalocytes 1+ (Not Present); Poikilocytosis 1+ (Not Present)
[2020-09-29] MEDS ORDERED: Furosemide 40 MG/4 ML VIAL IVP ONE (15:56)
[2020-09-29] MEDS ORDERED: *HR* FentaNYL (PF) 100 MCG/2 ML VIAL IVP ONE (16:22)
[2020-09-29] MEDS ORDERED: Naloxone 0.4 MG/ML INJ IVP PRN (18:11)
[2020-09-29] MEDS ORDERED: Ondansetron 4 MG/2 ML VIAL IVP PRN (18:11)
[2020-09-29] MEDS ORDERED: Nitroglycerin 0.4 MG TAB.SUBL SL PRN (18:15)
[2020-09-29] MEDS ORDERED: Albuterol 2.5 MG/3 ML NEBULIZER IH PRN (18:15)
[2020-09-29 18:46] LABS: Magnesium 2.1 mg/dL (1.6-2.6)
[2020-09-29 18:53] LABS: INR 1.1; Prothrombin Time 13.1 Seconds (9.4-12.1)
[2020-09-29] MEDS ORDERED: *HR* Dextrose 50 % in Water (Vial) 50 ML VIAL IVP PRN (20:00)
[2020-09-29] MEDS ORDERED: D5% in Water 1,000 ML IVC PRN (20:00)
[2020-09-29] MEDS ORDERED: Dextrose Gel 15 GM/37.5 ML TUBE PO PRN ×2 (20:00)
[2020-09-29] MEDS: INSULN ASP SQ SCH (20:19)
[2020-09-29] MEDS: INSULIN ASPART PROT SQ SCH (20:19)
[2020-09-29] MEDS: Apixaban 5 MG TABLET PO SCH (20:19)
[2020-09-29] MEDS: Acetaminophen 325 MG TABLET PO PRN (21:49)
[2020-09-29] MEDS: Budesonide/Formoterol 160/4.5 1 PUFF INH IH SCH (21:58)
[2020-09-30 00:30] LABS: Mean Corpuscular HGB Conc 27.8 g/dL (31.6-35.5); Mean Corpuscular Hemoglobin 19.9 pg (28.0-33.3); Red Cell Distribution Width 25.7 % (11.5-14.5)
[2020-09-30 00:32] LABS: Hematocrit 50.8 % (35.3-44.9); Hemoglobin 14.1 g/dL (11.5-15.4); Immature Platelets 4.6 % (1.1-6.1); Mean Corpuscular Volume 71.9 fL (83.0-100.0); Platelet Count 269 K/mcL (140-400); Red Blood Count 7.07 M/mcL (3.82-4.97)
[2020-09-30 00:47] LABS: Alanine Aminotransferase 5 Units/L (7-52); Albumin 3.2 g/dL (3.5-5.7); Albumin/Globulin Ratio 1.2 (1.1-2.2); Alkaline Phosphatase 117 Units/L (34-104); Aspartate Amino Transferase 9 Units/L (13-39); BUN/Creatinine Ratio 24 (6-26); Bilirubin,Total 0.5 mg/dL (0.3-1.0); Blood Urea Nitrogen 20 mg/dL (6-20); Calcium 8.6 mg/dL (8.6-10.3); Carbon Dioxide 32 mEq/L (23-29); Chloride 99 mEq/L (98-107); Chol/HDL Ratio 4.1 (0-4.9); Cholesterol 123 mg/dL (< 200); Globulin 2.7 g/dL (2.4-3.5); Glucose 299 mg/dL (70-105); HDL Cholesterol 30 mg/dL (40-59); LDL Cholesterol,Calculated 65 mg/dL (< 100); Osmolality,Calculated 296 (280-300); Potassium 3.5 mEq/L (3.5-5.1); Sodium 136 mEq/L (136-145); Total Protein 5.9 g/dL (6.4-8.9); Triglycerides 141 mg/dL (< 150); eGFR For African Americans > 60 (> 60); eGFR For Non-African Americans > 60 (> 60)
[2020-09-30] MEDS: Budesonide/Formoterol 160/4.5 1 PUFF INH IH SCH ×2 (07:54→19:45)
[2020-09-30] MEDS ORDERED: LIPASE PO SCH (08:00)
[2020-09-30] MEDS ORDERED: AMYLASE PO SCH (08:00)
[2020-09-30] MEDS ORDERED: PROTEASE PO SCH (08:00)
[2020-09-30] MEDS: Cyanocobalamin (B-12) 1,000 MCG TABLET PO SCH (08:49)
[2020-09-30] MEDS: Topiramate 25 MG TABLET PO SCH (08:49)
[2020-09-30] MEDS: Metoprolol XL (24 HR) Succ 25 MG TAB.ER.24H PO SCH (08:49)
[2020-09-30] MEDS: amLODIPine 5 MG TABLET PO SCH (08:50)
[2020-09-30] MEDS: Insulin LISPRO 300 UNITS/3 ML VIAL SQ SCH ×3 (08:50→17:30)
[2020-09-30] MEDS: Cholecalciferol (D-3) 1,000 UNIT (25MCG) TABLET PO SCH (08:50)
[2020-09-30] MEDS: Aspirin Enteric Coated 81 MG Tablet PO SCH (08:50)
[2020-09-30] MEDS: Apixaban 5 MG TABLET PO SCH ×2 (08:50→21:15)
[2020-09-30] MEDS: INSULIN ASPART PROT SQ SCH (08:52)
[2020-09-30] MEDS: INSULN ASP SQ SCH (08:52)
[2020-09-30] MEDS: Furosemide 40 MG in 0.9 % Sodium Chloride 50 ML IV SCH (10:52)
[2020-09-30] MEDS: Acetaminophen 325 MG TABLET PO PRN (19:15)
[2020-09-30] MEDS: Insulin NPH/REG 70/30 100 UNIT/ML (x5UNIT) SQ SCH (21:14)
[2020-10-01 06:37] LABS: Basophils # 0.1 K/mcL (0.0-0.2); Basophils % 0.6 %; Eosinophils # 0.2 K/mcL (0.0-0.6); Eosinophils % 2.5 %; Hematocrit 52.7 % (35.3-44.9); Hemoglobin 14.3 g/dL (11.5-15.4); Immature Granulocytes % 0.2 % (0-4); Lymphocytes # 1.3 K/mcL (0.6-4.6); Lymphocytes % 14.9 %; Mean Corpuscular HGB Conc 27.1 g/dL (31.6-35.5); Mean Corpuscular Hemoglobin 19.8 pg (28.0-33.3); Monocytes # 0.8 K/mcL (0.0-1.3); Monocytes % 9.5 %; Neutrophils # 6.1 K/mcL (1.6-8.9); Platelet Count 270 K/mcL (140-400); Red Blood Count 7.22 M/mcL (3.82-4.97); Red Cell Distribution Width 26.1 % (11.5-14.5); Segmented Neutrophils % 72.3 %; White Blood Count 8.4 K/mcL (4.3-11.1)
[2020-10-01 06:56] LABS: BUN/Creatinine Ratio 36 (6-26); Blood Urea Nitrogen 31 mg/dL (6-20); Calcium 8.9 mg/dL (8.6-10.3); Carbon Dioxide 31 mEq/L (23-29); Chloride 102 mEq/L (98-107); Glucose 96 mg/dL (70-105); Osmolality,Calculated 292 (280-300); Potassium 3.9 mEq/L (3.5-5.1); Sodium 138 mEq/L (136-145); eGFR For African Americans > 60 (> 60); eGFR For Non-African Americans > 60 (> 60)
[2020-10-01] MEDS: Cyanocobalamin (B-12) 1,000 MCG TABLET PO SCH (07:50)
[2020-10-01] MEDS: Metoprolol XL (24 HR) Succ 25 MG TAB.ER.24H PO SCH (07:50)
[2020-10-01] MEDS: Apixaban 5 MG TABLET PO SCH ×2 (07:50→20:57)
[2020-10-01] MEDS: amLODIPine 5 MG TABLET PO SCH (07:53)
[2020-10-01] MEDS: Topiramate 25 MG TABLET PO SCH (07:53)
[2020-10-01] MEDS: Aspirin Enteric Coated 81 MG Tablet PO SCH (07:53)
[2020-10-01] MEDS: Cholecalciferol (D-3) 1,000 UNIT (25MCG) TABLET PO SCH (07:53)
[2020-10-01] MEDS: Insulin NPH/REG 70/30 100 UNIT/ML (x5UNIT) SQ SCH ×2 (07:54→20:57)
[2020-10-01] MEDS: Insulin LISPRO 300 UNITS/3 ML VIAL SQ SCH ×3 (07:54→16:28)
[2020-10-01] MEDS: Furosemide 40 MG in 0.9 % Sodium Chloride 50 ML IV SCH (07:55)
[2020-10-01] MEDS: Budesonide/Formoterol 160/4.5 1 PUFF INH IH SCH ×2 (10:58→20:21)
[2020-10-01] MEDS: Acetaminophen 325 MG TABLET PO PRN (20:56)
[2020-10-02 04:12] LABS: Hematocrit 52.6 % (35.3-44.9); Hemoglobin 14.4 g/dL (11.5-15.4); Immature Platelets 4.7 % (1.1-6.1); Mean Corpuscular HGB Conc 27.4 g/dL (31.6-35.5); Mean Corpuscular Hemoglobin 19.9 pg (28.0-33.3); Mean Corpuscular Volume 72.6 fL (83.0-100.0); Platelet Count 281 K/mcL (140-400); Red Blood Count 7.25 M/mcL (3.82-4.97); White Blood Count 9.3 K/mcL (4.3-11.1)
[2020-10-02 04:26] LABS: BUN/Creatinine Ratio 34 (6-26); Blood Urea Nitrogen 31 mg/dL (6-20); Carbon Dioxide 28 mEq/L (23-29); Chloride 102 mEq/L (98-107); Glucose 45 mg/dL (70-105); Osmolality,Calculated 290 (280-300); Potassium 3.6 mEq/L (3.5-5.1); Sodium 138 mEq/L (136-145); eGFR For African Americans > 60 (> 60); eGFR For Non-African Americans > 60 (> 60)
[2020-10-02 06:42] VITALS: BP 161/92
[2020-10-02] MEDS: Insulin LISPRO 300 UNITS/3 ML VIAL SQ SCH (07:49)
[2020-10-02] MEDS: Topiramate 25 MG TABLET PO SCH (08:26)
[2020-10-02] MEDS: Insulin NPH/REG 70/30 100 UNIT/ML (x5UNIT) SQ SCH (08:27)
[2020-10-02] MEDS: Aspirin Enteric Coated 81 MG Tablet PO SCH (08:27)
[2020-10-02] MEDS: Cyanocobalamin (B-12) 1,000 MCG TABLET PO SCH (08:27)
[2020-10-02] MEDS: Cholecalciferol (D-3) 1,000 UNIT (25MCG) TABLET PO SCH (08:27)
[2020-10-02] MEDS: Metoprolol XL (24 HR) Succ 25 MG TAB.ER.24H PO SCH (08:27)
[2020-10-02] MEDS: Apixaban 5 MG TABLET PO SCH (08:28)
[2020-10-02] MEDS: amLODIPine 5 MG TABLET PO SCH (08:28)
[2020-10-02] MEDS: Acetaminophen 325 MG TABLET PO PRN (08:38)
[2020-10-02] MEDS: Furosemide 40 MG in 0.9 % Sodium Chloride 50 ML IV SCH (08:41)
[2020-10-02] MEDS: Budesonide/Formoterol 160/4.5 1 PUFF INH IH SCH (09:10)
== END 2020-10-02 10:51 | disposition home or self-care (01) ==
LOC: EMEROOARM 14:08 → 3BNU 14:08
PROVIDERS: ADMIT Student in an Organized Health Care Education/Training Program; ATTEND Student in an Organized Health Care Education/Training Program

== ENCOUNTER 2020-11-09 21:34 | Inpatient (IN) ==
[2020-11-10 00:25] LABS: INR 1.1
[2020-11-10 00:27] LABS: Activated Partial Thrombo Time 31.7 Seconds (26.0-36.0)
[2020-11-10 00:30] LABS: Hemoglobin 13.3 g/dL (11.5-15.4); Platelet Count 225 K/mcL (140-400)
[2020-11-10 00:32] LABS: Hematocrit 47.2 % (35.3-44.9); Mean Corpuscular HGB Conc 28.2 g/dL (31.6-35.5); Mean Corpuscular Hemoglobin 21.6 pg (28.0-33.3); Mean Corpuscular Volume 76.5 fL (83.0-100.0); Red Blood Count 6.17 M/mcL (3.82-4.97); Red Cell Distribution Width 27.2 % (11.5-14.5); White Blood Count 8.6 K/mcL (4.3-11.1)
[2020-11-10 00:39] LABS: Alanine Aminotransferase 7 Units/L (7-52); Albumin 3.3 g/dL (3.5-5.7); Albumin/Globulin Ratio 1.1 (1.1-2.2); Alkaline Phosphatase 102 Units/L (34-104); Aspartate Amino Transferase 8 Units/L (13-39); BUN/Creatinine Ratio 24 (6-26); Bilirubin,Direct 0.1 mg/dL (0.0-0.2); Bilirubin,Indirect 0.2 mg/dL (0.0-1.0); Bilirubin,Total 0.3 mg/dL (0.3-1.0); Blood Urea Nitrogen 22 mg/dL (6-20); C-Reactive Protein < 5 mg/L (Less than 10); Calcium 8.8 mg/dL (8.6-10.3); Carbon Dioxide 26 mEq/L (23-29); Chloride 99 mEq/L (98-107); Glucose 553 mg/dL (70-105); Lactate Dehydrogenase 152 Units/L (140-271); Magnesium 1.8 mg/dL (1.6-2.6); Osmolality,Calculated 305 (280-300); Phosphorous 4.4 mg/dL (2.7-4.5); Potassium 3.9 mEq/L (3.5-5.1); Sodium 133 mEq/L (136-145); Total Protein 6.3 g/dL (6.4-8.9); Troponin I < 0.03 ng/mL (< 0.04); eGFR For African Americans > 60 (> 60); eGFR For Non-African Americans > 60 (> 60)
[2020-11-10] MEDS ORDERED: Insulin Regular, Human 100 UNIT/ML SUBQ ONE ×2 (00:40→00:42)
[2020-11-10 00:53] LABS: Anisocytosis 2+ (Not Present); Microcytosis Present (Not Present); Platelet Estimate Normal (Normal)
[2020-11-10 00:58] LABS: Ferritin 17 ng/mL (10-120)
[2020-11-10 01:02] LABS: Bacteria,Urine Few per hpf (None-Few); Bilirubin,Urine Negative (Negative); Blood,Urine Negative (Negative); Clarity,Urine Clear (Clear); Color,Urine Colorless (Yellow); Glucose,Urine (UA) >=1000 mg/dL (Normal); Ketones,Urine Negative (Negative); Leukocyte Esterase,Urine Negative (Negative); Nitrite,Urine Negative (Negative); Protein,Urine 50 mg/dL (Neg-Trace); Specific Gravity,Urine 1.022 (1.010-1.025); Squamous Epithelial Cell,Urine Few per hpf (None-Few); Urobilinogen,Urine Normal (Normal); WBC,Urine 0-3 per hpf (0-3)
[2020-11-10 01:08] LABS: Neutrophils # 7.2 K/mcL (1.6-8.9); Segmented Neutrophils % 83.5 %
[2020-11-10 01:09] LABS: Basophils # 0.1 K/mcL (0.0-0.2); Basophils % 0.6 %; Eosinophils # 0.1 K/mcL (0.0-0.6); Eosinophils % 0.9 %; Immature Granulocytes % 0.5 % (0-4); Lymphocytes # 0.7 K/mcL (0.6-4.6); Lymphocytes % 7.8 %; Monocytes # 0.6 K/mcL (0.0-1.3); Monocytes % 6.7 %
[2020-11-10] MEDS ORDERED: Azithromycin 500 MG in 0.9 % Sodium Chloride 250 ML IVPB ONE (01:15)
[2020-11-10] MEDS ORDERED: cefTRIAXone 1,000 MG in Water for inj. (sterile) 10 ML IVP ONE (01:15)
[2020-11-10 01:29] LABS: Adenovirus Not Detected (Not Detect); Coronavirus 229E Not Detected (Not Detect); Coronavirus HKU1 Not Detected (Not Detect); Coronavirus NL63 Not Detected (Not Detect); Coronavirus OC43 Not Detected (Not Detect); Human Metapneumovirus Not Detected (Not Detect); Human Rhinovirus/Enterovirus Not Detected (Not Detect); Influenza A Subtype 2009 H1 Not Detected (Not Detect); SARS-CoV-2 Not Detected (Not Detect)
[2020-11-10 01:30] LABS: Bordetella Pertussis Not Detected (Not Detect); Chlamydophila pneumoniae Not Detected (Not Detect); Influenza B Not Detected (Not Detect); Mycoplasma pneumoniae Not Detected (Not Detect); Parainfluenza Virus 1 Not Detected (Not Detect); Parainfluenza Virus 2 Not Detected (Not Detect); Parainfluenza Virus 3 Not Detected (Not Detect); Parainfluenza Virus 4 Not Detected (Not Detect); Respiratory Syncytial Virus Not Detected (Not Detect)
[2020-11-10] MEDS ORDERED: Furosemide 40 MG/4 ML VIAL IVP ONE ×2 (01:53→17:06)
[2020-11-10] MEDS ORDERED: Acetaminophen 325 MG TABLET PO PRN (03:01)
[2020-11-10] MEDS ORDERED: Naloxone 0.4 MG/ML INJ IVP PRN (03:01)
[2020-11-10] MEDS ORDERED: Ondansetron ODT 4 MG TAB.RAPDIS SL PRN (03:01)
[2020-11-10] MEDS ORDERED: D5% in Water 1,000 ML IVC PRN (03:03)
[2020-11-10] MEDS ORDERED: *HR* Dextrose 50 % in Water (Vial) 50 ML VIAL IVP PRN (03:03)
[2020-11-10] MEDS ORDERED: Dextrose Gel 15 GM/37.5 ML TUBE PO PRN ×2 (03:03)
[2020-11-10] MEDS: Insulin LISPRO 300 UNITS/3 ML VIAL SUBQ SCH ×6 (04:06→20:35)
[2020-11-10] MEDS ORDERED: Ipratropium/Albuterol Neb 3 ML IH PRN (04:51)
[2020-11-10 08:47] LABS: INR 1.1; Prothrombin Time 12.8 Seconds (9.4-12.1)
[2020-11-10 08:56] LABS: Basophils # 0.1 K/mcL (0.0-0.2); Basophils % 0.9 %; Eosinophils # 0.1 K/mcL (0.0-0.6); Eosinophils % 1.8 %; Hematocrit 49.7 % (35.3-44.9); Hemoglobin 14.1 g/dL (11.5-15.4); Immature Granulocytes % 0.4 % (0-4); Immature Platelets 4.2 % (1.1-6.1); Lymphocytes # 1.1 K/mcL (0.6-4.6); Lymphocytes % 13.9 %; Mean Corpuscular HGB Conc 28.4 g/dL (31.6-35.5); Mean Corpuscular Hemoglobin 21.4 pg (28.0-33.3); Mean Corpuscular Volume 75.4 fL (83.0-100.0); Monocytes # 0.7 K/mcL (0.0-1.3); Monocytes % 8.5 %; Neutrophils # 5.9 K/mcL (1.6-8.9); Platelet Count 225 K/mcL (140-400); Red Blood Count 6.59 M/mcL (3.82-4.97); Red Cell Distribution Width 27.1 % (11.5-14.5); Segmented Neutrophils % 74.5 %; White Blood Count 7.9 K/mcL (4.3-11.1)
[2020-11-10] MEDS: predniSONE 20 MG TABLET PO SCH (09:00)
[2020-11-10 09:01] LABS: Alanine Aminotransferase 6 Units/L (7-52); Albumin 3.3 g/dL (3.5-5.7); Albumin/Globulin Ratio 1.1 (1.1-2.2); Alkaline Phosphatase 101 Units/L (34-104); Aspartate Amino Transferase 9 Units/L (13-39); BUN/Creatinine Ratio 29 (6-26); Bilirubin,Total 0.4 mg/dL (0.3-1.0); Blood Urea Nitrogen 20 mg/dL (6-20); Calcium 9.1 mg/dL (8.6-10.3); Carbon Dioxide 29 mEq/L (23-29); Chloride 103 mEq/L (98-107); Globulin 2.9 g/dL (2.4-3.5); Glucose 91 mg/dL (70-105); Magnesium 1.7 mg/dL (1.6-2.6); Osmolality,Calculated 286 (280-300); Phosphorous 3.4 mg/dL (2.7-4.5); Potassium 3.6 mEq/L (3.5-5.1); Sodium 137 mEq/L (136-145); Total Protein 6.2 g/dL (6.4-8.9); eGFR For African Americans > 60 (> 60); eGFR For Non-African Americans > 60 (> 60)
[2020-11-10 09:24] LABS: Anisocytosis 2+ (Not Present); Hypochromasia Present (Not Present); Platelet Estimate Normal (Normal); Poikilocytosis 1+ (Not Present)
[2020-11-10 11:04] LABS: Estimated Average Glucose 395 mg/dl; Hemoglobin A1C 15.4 %
[2020-11-10] MEDS: Apixaban 5 MG TABLET PO SCH (21:01)
[2020-11-11] MEDS ORDERED: Azithromycin 500 MG in 0.9 % Sodium Chloride 250 ML IVPB SCH (04:00)
[2020-11-11] MEDS: Insulin LISPRO 300 UNITS/3 ML VIAL SUBQ SCH ×4 (08:49→20:29)
[2020-11-11] MEDS: predniSONE 20 MG TABLET PO SCH (08:49)
[2020-11-11] MEDS: Apixaban 5 MG TABLET PO SCH ×2 (08:49→20:28)
[2020-11-11] MEDS ORDERED: Furosemide 40 MG/4 ML VIAL IVP SCH (09:00)
[2020-11-11] MEDS ORDERED: cefTRIAXone 1,000 MG in 0.9 % Sodium Chloride Mini Bag 100 ML IVPB SCH (09:00)
[2020-11-11] MEDS ORDERED: tiZANidine 4 MG TABLET PO PRN (10:56)
[2020-11-11] MEDS ORDERED: Fluticasone Propionate Nasal 50 MCG/SPRAY BOTTLE NS PRN (10:56)
[2020-11-11] MEDS: amLODIPine 5 MG TABLET PO SCH (12:55)
[2020-11-11] MEDS: Metoprolol XL (24 HR) Succ 25 MG TAB.ER.24H PO SCH (12:55)
[2020-11-11] MEDS: Budesonide/Formoterol 160/4.5 1 PUFF INH IH SCH ×2 (19:56→19:58)
[2020-11-11] MEDS: Furosemide 40 MG/4 ML VIAL IVP SCH (20:28)
[2020-11-11] MEDS: Pregabalin 50 MG CAPSULE PO SCH (20:28)
[2020-11-12 08:12] VITALS: BP 159/86
[2020-11-12] MEDS: Furosemide 40 MG/4 ML VIAL IVP SCH (08:28)
[2020-11-12] MEDS: Insulin LISPRO 300 UNITS/3 ML VIAL SUBQ SCH (08:28)
[2020-11-12] MEDS: Metoprolol XL (24 HR) Succ 25 MG TAB.ER.24H PO SCH (08:29)
[2020-11-12] MEDS: Pregabalin 50 MG CAPSULE PO SCH (08:29)
[2020-11-12] MEDS: Apixaban 5 MG TABLET PO SCH (08:30)
[2020-11-12] MEDS: amLODIPine 5 MG TABLET PO SCH (08:30)
[2020-11-12] MEDS: Budesonide/Formoterol 160/4.5 1 PUFF INH IH SCH (08:37)
[2020-11-12] MEDS ORDERED: Cyanocobalamin (B-12) 1,000 MCG TABLET PO SCH (09:00)
[2020-11-12] MEDS ORDERED: Aspirin Enteric Coated 81 MG Tablet PO SCH (09:00)
[2020-11-12] MEDS ORDERED: Loratadine 10 MG TABLET PO SCH (09:00)
[2020-11-12] MEDS ORDERED: Spironolactone 25 MG TABLET PO SCH (09:00)
[2020-11-12] MEDS ORDERED: Topiramate 25 MG TABLET PO SCH (09:00)
[2020-11-12] MEDS ORDERED: Cholecalciferol (D-3) 1,000 UNIT (25MCG) TABLET PO SCH (09:00)
[2020-11-12 10:01] LABS: Basophils % 0.2 %; Eosinophils % 0.1 %
[2020-11-12 10:03] LABS: Hematocrit 52.7 % (35.3-44.9); Immature Granulocytes % 0.3 % (0-4); Immature Platelets 3.7 % (1.1-6.1); Lymphocytes % 7.7 %; Mean Corpuscular HGB Conc 28.5 g/dL (31.6-35.5); Mean Corpuscular Hemoglobin 21.3 pg (28.0-33.3); Monocytes # 0.5 K/mcL (0.0-1.3); Monocytes % 3.8 %; Neutrophils # 10.9 K/mcL (1.6-8.9); Platelet Count 271 K/mcL (140-400); Red Blood Count 7.03 M/mcL (3.82-4.97); Red Cell Distribution Width 27.3 % (11.5-14.5); Segmented Neutrophils % 87.9 %; White Blood Count 12.4 K/mcL (4.3-11.1)
[2020-11-12 10:18] LABS: BUN/Creatinine Ratio 36 (6-26); Blood Urea Nitrogen 32 mg/dL (6-20); Calcium 9.5 mg/dL (8.6-10.3); Carbon Dioxide 26 mEq/L (23-29); Chloride 94 mEq/L (98-107); Glucose 461 mg/dL (70-105); Osmolality,Calculated 299 (280-300); Potassium 4.5 mEq/L (3.5-5.1); Sodium 131 mEq/L (136-145); eGFR For African Americans > 60 (> 60); eGFR For Non-African Americans > 60 (> 60)
[2020-11-12 10:28] LABS: Anisocytosis 1+ (Not Present); Macrocytosis Present (Not Present); Microcytosis Present (Not Present); Platelet Estimate Slight Decrease (Normal)
== END 2020-11-12 11:31 | disposition home health service (06) ==
LOC: EMEROOARM 21:34 → CDU 21:34 → OBSVTOIN 11-10 02:07 → SUATTDRO 11-10 02:07 → CDU 11-10 02:48 → 2ANU 11-11 17:01
PROVIDERS: ADMIT Student in an Organized Health Care Education/Training Program; ATTEND Internal Medicine

== ENCOUNTER 2021-01-04 11:42 | Observation (INO) ==
[2021-01-04 12:18] LABS: Basophils % 1.1 %; Hemoglobin 15.4 g/dL (11.5-15.4); Lymphocytes % 15.4 %; Mean Corpuscular Hemoglobin 21.8 pg (28.0-33.3); Red Blood Count 7.05 M/mcL (3.82-4.97)
[2021-01-04 12:20] LABS: Basophils # 0.1 K/mcL (0.0-0.2); Eosinophils # 0.1 K/mcL (0.0-0.6); Hematocrit 53.3 % (35.3-44.9); Immature Granulocytes % 0.1 % (0-4); Immature Platelets 9.6 % (1.1-6.1); Lymphocytes # 1.4 K/mcL (0.6-4.6); Mean Corpuscular HGB Conc 28.9 g/dL (31.6-35.5); Mean Corpuscular Volume 75.6 fL (83.0-100.0); Monocytes # 0.6 K/mcL (0.0-1.3); Monocytes % 6.2 %; Platelet Count 141 K/mcL (140-400); Red Cell Distribution Width 23.4 % (11.5-14.5); Segmented Neutrophils % 76.2 %; White Blood Count 9.2 K/mcL (4.3-11.1)
[2021-01-04] MEDS ORDERED: Isovue-370 500 ML BOTTLE IVP ONE (12:20)
[2021-01-04 12:24] LABS: VBG HCO3 31 mEq/L (21-27); VBG PCO2 51 mmHg (41-51); VBG PH 7.39 pH Units (7.32-7.42); VBG PO2 121 mmHg (25-50)
[2021-01-04 12:39] LABS: INR 1.3; Prothrombin Time 15.3 Seconds (9.4-12.1)
[2021-01-04 12:42] LABS: Activated Partial Thrombo Time 31.6 Seconds (26.0-36.0)
[2021-01-04 12:47] LABS: Albumin 4.1 g/dL (3.5-5.7); Albumin/Globulin Ratio 1.2 (1.1-2.2); Bilirubin,Total 0.7 mg/dL (0.3-1.0); Calcium 10.1 mg/dL (8.6-10.3); Globulin 3.3 g/dL (2.4-3.5); Potassium 3.4 mEq/L (3.5-5.1); Total Protein 7.4 g/dL (6.4-8.9); Troponin I 0.04 ng/mL (< 0.04)
[2021-01-04 12:56] LABS: Anisocytosis 1+ (Not Present); Platelet Estimate Normal (Normal); Stomatocytes 1+ (Not Present)
[2021-01-04] MEDS ORDERED: 0.9 % Sodium Chloride 1,000 ML IVC ONE (13:18)
[2021-01-04] MEDS ORDERED: Insulin LISPRO 300 UNITS/3 ML VIAL SUBQ STA (13:36)
[2021-01-04] MEDS ORDERED: Azithromycin 500 MG in 0.9 % Sodium Chloride 250 ML IVPB ONE (13:46)
[2021-01-04] MEDS ORDERED: cefTRIAXone 1,000 MG in Water for inj. (sterile) 10 ML IVP ONE (13:46)
[2021-01-04] MEDS ORDERED: Ondansetron ODT 4 MG TAB.RAPDIS SL PRN (14:04)
[2021-01-04] MEDS ORDERED: Naloxone 0.4 MG/ML INJ IVP PRN (14:04)
[2021-01-04] MEDS ORDERED: Ipratropium/Albuterol Neb 3 ML IH PRN (14:08)
[2021-01-04] MEDS ORDERED: *HR* Dextrose 50 % in Water (Vial) 50 ML VIAL IVP PRN (14:48)
[2021-01-04] MEDS ORDERED: D5% in Water 1,000 ML IVC PRN (14:48)
[2021-01-04] MEDS ORDERED: Dextrose Gel 15 GM/37.5 ML TUBE PO PRN ×2 (14:48)
[2021-01-04] MEDS: Insulin LISPRO 300 UNITS/3 ML VIAL SUBQ SCH (16:43)
[2021-01-04] MEDS: 0.9 % Sodium Chloride 1,000 ML IVC SCH (16:49)
[2021-01-04 18:57] LABS: BUN/Creatinine Ratio 32 (6-26); Blood Urea Nitrogen 29 mg/dL (6-20); Carbon Dioxide 32 mEq/L (23-29); Chloride 96 mEq/L (98-107); Glucose 78 mg/dL (70-105); Osmolality,Calculated 283 (280-300); Potassium 3.5 mEq/L (3.5-5.1); Sodium 134 mEq/L (136-145); eGFR For African Americans > 60 (> 60); eGFR For Non-African Americans > 60 (> 60)
[2021-01-04] MEDS: tiZANidine 4 MG TABLET PO SCH (20:55)
[2021-01-04] MEDS: Apixaban 5 MG TABLET PO SCH (20:55)
[2021-01-04] MEDS: Insulin DETEMIR 100 UNIT/ML X5UNITS SUBQ SCH (21:10)
[2021-01-04] MEDS: Budesonide/Formoterol 160/4.5 1 PUFF INH IH SCH ×2 (21:26→21:31)
[2021-01-05 00:29] LABS: BUN/Creatinine Ratio 34 (6-26); Blood Urea Nitrogen 27 mg/dL (6-20); Calcium 8.7 mg/dL (8.6-10.3); Carbon Dioxide 31 mEq/L (23-29); Chloride 101 mEq/L (98-107); Glucose 85 mg/dL (70-105); Magnesium 2.1 mg/dL (1.6-2.6); Osmolality,Calculated 288 (280-300); Phosphorous 3.8 mg/dL (2.7-4.5); Potassium 3.5 mEq/L (3.5-5.1); Sodium 137 mEq/L (136-145); eGFR For African Americans > 60 (> 60); eGFR For Non-African Americans > 60 (> 60)
[2021-01-05 00:39] LABS: Basophils # 0.1 K/mcL (0.0-0.2); Basophils % 0.8 %; Eosinophils # 0.2 K/mcL (0.0-0.6); Eosinophils % 1.9 %; Hematocrit 45.6 % (35.3-44.9); Immature Granulocytes % 0.2 % (0-4); Immature Platelets 9.4 % (1.1-6.1); Lymphocytes # 1.9 K/mcL (0.6-4.6); Lymphocytes % 23.3 %; Mean Corpuscular HGB Conc 28.5 g/dL (31.6-35.5); Mean Corpuscular Hemoglobin 21.7 pg (28.0-33.3); Mean Corpuscular Volume 76.1 fL (83.0-100.0); Monocytes # 0.7 K/mcL (0.0-1.3); Monocytes % 8.2 %; Neutrophils # 5.4 K/mcL (1.6-8.9); Platelet Count 127 K/mcL (140-400); Red Blood Count 5.99 M/mcL (3.82-4.97); Red Cell Distribution Width 22.7 % (11.5-14.5); Segmented Neutrophils % 65.6 %; White Blood Count 8.3 K/mcL (4.3-11.1)
[2021-01-05 00:45] LABS: Estimated Average Glucose 413 mg/dl
[2021-01-05 00:56] LABS: Anisocytosis 1+ (Not Present); Hypochromasia Present (Not Present); Platelet Estimate Slight Decrease (Normal)
[2021-01-05] MEDS: 0.9 % Sodium Chloride 1,000 ML IVC SCH (03:30)
[2021-01-05] MEDS: Budesonide/Formoterol 160/4.5 1 PUFF INH IH SCH ×2 (07:33→19:52)
[2021-01-05] MEDS: Insulin DETEMIR 100 UNIT/ML X5UNITS SUBQ SCH ×2 (08:00→21:25)
[2021-01-05] MEDS: Insulin LISPRO 300 UNITS/3 ML VIAL SUBQ SCH ×3 (08:07→16:27)
[2021-01-05] MEDS: Cholecalciferol (D-3) 1,000 UNIT (25MCG) TABLET PO SCH (08:24)
[2021-01-05] MEDS: Aspirin Enteric Coated 81 MG Tablet PO SCH (08:24)
[2021-01-05] MEDS: Cyanocobalamin (B-12) 1,000 MCG TABLET PO SCH (08:24)
[2021-01-05] MEDS: Apixaban 5 MG TABLET PO SCH ×2 (08:25→21:26)
[2021-01-05] MEDS: tiZANidine 4 MG TABLET PO SCH ×2 (08:25→21:27)
[2021-01-05] MEDS: Topiramate 25 MG TABLET PO SCH ×2 (08:26→21:28)
[2021-01-05] MEDS ORDERED: cefTRIAXone 1,000 MG in Water for inj. (sterile) 10 ML IVP SCH (09:00)
[2021-01-05] MEDS ORDERED: Nitroglycerin 0.4 MG TAB.SUBL SL PRN (14:52)
[2021-01-05] MEDS ORDERED: Azithromycin 500 MG in 0.9 % Sodium Chloride 250 ML IVPB SCH (15:00)
[2021-01-05] MEDS: Patient Taking Own Medication 1 EACH PO SCH (16:29)
[2021-01-05] MEDS: Pregabalin 50 MG CAPSULE PO SCH (21:26)
[2021-01-05] MEDS: Cefdinir 300 MG CAPSULE PO SCH (21:27)
[2021-01-06 02:20] LABS: Basophils % 0.7 %; Monocytes % 7.5 %
[2021-01-06 02:22] LABS: Basophils # 0.1 K/mcL (0.0-0.2); Eosinophils # 0.2 K/mcL (0.0-0.6); Eosinophils % 1.8 %; Hematocrit 49.1 % (35.3-44.9); Hemoglobin 13.3 g/dL (11.5-15.4); Immature Granulocytes % 0.4 % (0-4); Immature Platelets 7.5 % (1.1-6.1); Lymphocytes # 1.2 K/mcL (0.6-4.6); Lymphocytes % 11.9 %; Mean Corpuscular HGB Conc 27.1 g/dL (31.6-35.5); Mean Corpuscular Hemoglobin 21.7 pg (28.0-33.3); Mean Corpuscular Volume 80.2 fL (83.0-100.0); Monocytes # 0.8 K/mcL (0.0-1.3); Neutrophils # 7.9 K/mcL (1.6-8.9); Platelet Count 146 K/mcL (140-400); Red Blood Count 6.12 M/mcL (3.82-4.97); Red Cell Distribution Width 23.1 % (11.5-14.5); Segmented Neutrophils % 77.7 %; White Blood Count 10.1 K/mcL (4.3-11.1)
[2021-01-06 02:34] LABS: BUN/Creatinine Ratio 27 (6-26); Blood Urea Nitrogen 26 mg/dL (6-20); Calcium 9.1 mg/dL (8.6-10.3); Carbon Dioxide 34 mEq/L (23-29); Chloride 102 mEq/L (98-107); Glucose 273 mg/dL (70-105); Magnesium 2.2 mg/dL (1.6-2.6); Osmolality,Calculated 302 (280-300); Potassium 3.9 mEq/L (3.5-5.1); Sodium 139 mEq/L (136-145); eGFR For African Americans > 60 (> 60); eGFR For Non-African Americans 58 (> 60)
[2021-01-06 04:00] LABS: Anisocytosis 1+ (Not Present); Hypochromasia Present (Not Present); Platelet Estimate Normal (Normal); Poikilocytosis 1+ (Not Present)
[2021-01-06] MEDS: Budesonide/Formoterol 160/4.5 1 PUFF INH IH SCH ×2 (07:46→19:50)
[2021-01-06] MEDS ORDERED: amLODIPine 5 MG TABLET PO SCH (09:00)
[2021-01-06] MEDS: Topiramate 25 MG TABLET PO SCH ×2 (10:15→20:26)
[2021-01-06] MEDS: Aspirin Enteric Coated 81 MG Tablet PO SCH (10:15)
[2021-01-06] MEDS: Cyanocobalamin (B-12) 1,000 MCG TABLET PO SCH (10:16)
[2021-01-06] MEDS: Metoprolol XL (24 HR) Succ 25 MG TAB.ER.24H PO SCH (10:16)
[2021-01-06] MEDS: Pregabalin 50 MG CAPSULE PO SCH ×2 (10:17→20:23)
[2021-01-06] MEDS: Apixaban 5 MG TABLET PO SCH ×2 (10:17→20:22)
[2021-01-06] MEDS: Cholecalciferol (D-3) 1,000 UNIT (25MCG) TABLET PO SCH (10:17)
[2021-01-06] MEDS: Loratadine 10 MG TABLET PO SCH (10:17)
[2021-01-06] MEDS: amLODIPine 5 MG TABLET PO SCH (10:17)
[2021-01-06] MEDS: Bumetanide 1 MG TABLET PO SCH (10:18)
[2021-01-06] MEDS: Cefdinir 300 MG CAPSULE PO SCH ×2 (10:18→20:23)
[2021-01-06] MEDS: Insulin DETEMIR 100 UNIT/ML X5UNITS SUBQ SCH ×2 (10:18→20:28)
[2021-01-06] MEDS: Azithromycin 250 MG TABLET PO SCH (10:18)
[2021-01-06] MEDS: Patient Taking Own Medication 1 EACH PO SCH ×3 (10:19→18:14)
[2021-01-06] MEDS: Insulin LISPRO 300 UNITS/3 ML VIAL SUBQ SCH ×3 (10:29→18:14)
[2021-01-06] MEDS: Acetaminophen 325 MG TABLET PO PRN (11:28)
[2021-01-06] MEDS: tiZANidine 4 MG TABLET PO SCH (20:23)
[2021-01-07 03:49] LABS: Basophils # 0.1 K/mcL (0.0-0.2); Basophils % 0.9 %; Eosinophils # 0.2 K/mcL (0.0-0.6); Eosinophils % 2.4 %; Hematocrit 48.1 % (35.3-44.9); Hemoglobin 13.3 g/dL (11.5-15.4); Immature Granulocytes % 0.3 % (0-4); Immature Platelets 7.2 % (1.1-6.1); Lymphocytes # 1.6 K/mcL (0.6-4.6); Lymphocytes % 17.3 %; Mean Corpuscular HGB Conc 27.7 g/dL (31.6-35.5); Mean Corpuscular Hemoglobin 21.6 pg (28.0-33.3); Mean Corpuscular Volume 78.1 fL (83.0-100.0); Monocytes # 0.9 K/mcL (0.0-1.3); Monocytes % 9.6 %; Neutrophils # 6.3 K/mcL (1.6-8.9); Platelet Count 163 K/mcL (140-400); Red Blood Count 6.16 M/mcL (3.82-4.97); Red Cell Distribution Width 23.4 % (11.5-14.5); Segmented Neutrophils % 69.5 %; White Blood Count 9.1 K/mcL (4.3-11.1)
[2021-01-07 04:07] LABS: BUN/Creatinine Ratio 24 (6-26); Blood Urea Nitrogen 25 mg/dL (6-20); Calcium 9.5 mg/dL (8.6-10.3); Carbon Dioxide 30 mEq/L (23-29); Chloride 102 mEq/L (98-107); Glucose 115 mg/dL (70-105); Osmolality,Calculated 291 (280-300); Potassium 3.5 mEq/L (3.5-5.1); Sodium 138 mEq/L (136-145); eGFR For African Americans > 60 (> 60); eGFR For Non-African Americans 55 (> 60)
[2021-01-07 04:15] LABS: Anisocytosis 1+ (Not Present); Hypochromasia Present (Not Present); Platelet Estimate Normal (Normal); Poikilocytosis 1+ (Not Present)
[2021-01-07] MEDS: Insulin LISPRO 300 UNITS/3 ML VIAL SUBQ SCH ×2 (08:45→12:39)
[2021-01-07] MEDS: Bumetanide 1 MG TABLET PO SCH (08:45)
[2021-01-07] MEDS: Insulin DETEMIR 100 UNIT/ML X5UNITS SUBQ SCH (08:45)
[2021-01-07] MEDS: Cyanocobalamin (B-12) 1,000 MCG TABLET PO SCH (08:45)
[2021-01-07] MEDS: Aspirin Enteric Coated 81 MG Tablet PO SCH (08:45)
[2021-01-07] MEDS: Pregabalin 50 MG CAPSULE PO SCH (08:46)
[2021-01-07] MEDS: amLODIPine 5 MG TABLET PO SCH (08:46)
[2021-01-07] MEDS: Cefdinir 300 MG CAPSULE PO SCH (08:46)
[2021-01-07] MEDS: Topiramate 25 MG TABLET PO SCH (08:46)
[2021-01-07] MEDS: Cholecalciferol (D-3) 1,000 UNIT (25MCG) TABLET PO SCH (08:46)
[2021-01-07] MEDS: Metoprolol XL (24 HR) Succ 25 MG TAB.ER.24H PO SCH (08:46)
[2021-01-07] MEDS: Patient Taking Own Medication 1 EACH PO SCH ×2 (08:47→12:39)
[2021-01-07] MEDS: Apixaban 5 MG TABLET PO SCH (08:47)
[2021-01-07] MEDS: Acetaminophen 325 MG TABLET PO PRN (08:47)
[2021-01-07] MEDS: Azithromycin 250 MG TABLET PO SCH (08:47)
[2021-01-07] MEDS: Loratadine 10 MG TABLET PO SCH (08:47)
[2021-01-07] MEDS: Budesonide/Formoterol 160/4.5 1 PUFF INH IH SCH (09:48)
[2021-01-07 12:08] VITALS: BP 165/82
== END 2021-01-07 15:35 | disposition home health service (06) ==
LOC: EMEROOARM 11:42 → 2ANU 11:42 → SUATTDRO 14:53 → 2ANU 15:59
PROVIDERS: ADMIT Internal Medicine; ATTEND Pharmacist

== ENCOUNTER 2021-01-24 07:58 | Inpatient (IN) ==
[2021-01-24 10:03] LABS: Basophils # 0.1 K/mcL (0.0-0.2); Basophils % 0.7 %; Eosinophils # 0.1 K/mcL (0.0-0.6); Eosinophils % 1.4 %; Hematocrit 49.2 % (35.3-44.9); Hemoglobin 14.1 g/dL (11.5-15.4); Immature Granulocytes % 0.5 % (0-4); Immature Platelets 8.4 % (1.1-6.1); Lymphocytes # 0.9 K/mcL (0.6-4.6); Mean Corpuscular HGB Conc 28.7 g/dL (31.6-35.5); Mean Corpuscular Hemoglobin 22.1 pg (28.0-33.3); Monocytes # 0.6 K/mcL (0.0-1.3); Monocytes % 7.4 %; Neutrophils # 6.4 K/mcL (1.6-8.9); Platelet Count 154 K/mcL (140-400); Red Blood Count 6.39 M/mcL (3.82-4.97); Red Cell Distribution Width 23.3 % (11.5-14.5); White Blood Count 8.1 K/mcL (4.3-11.1)
[2021-01-24 10:10] LABS: INR 1.2; Prothrombin Time 13.5 Seconds (9.4-12.1)
[2021-01-24 10:36] LABS: Alanine Aminotransferase 7 Units/L (7-52); Albumin 3.7 g/dL (3.5-5.7); Albumin/Globulin Ratio 1.4 (1.1-2.2); Alkaline Phosphatase 112 Units/L (34-104); Aspartate Amino Transferase 10 Units/L (13-39); BUN/Creatinine Ratio 23 (6-26); Bilirubin,Total 0.5 mg/dL (0.3-1.0); Blood Urea Nitrogen 25 mg/dL (6-20); Calcium 8.9 mg/dL (8.6-10.3); Carbon Dioxide 30 mEq/L (23-29); Chloride 95 mEq/L (98-107); Globulin 2.7 g/dL (2.4-3.5); Glucose 503 mg/dL (70-105); Osmolality,Calculated 301 (280-300); Potassium 3.8 mEq/L (3.5-5.1); Sodium 132 mEq/L (136-145); Total Protein 6.4 g/dL (6.4-8.9); eGFR For African Americans > 60 (> 60); eGFR For Non-African Americans 52 (> 60)
[2021-01-24 10:42] LABS: Anisocytosis 1+ (Not Present); Hypochromasia Present (Not Present)
[2021-01-24 10:43] LABS: Poikilocytosis 1+ (Not Present); Polychromasia 1+ (Not Present); Reactive Lymphocytes Present (Not Present)
[2021-01-24] MEDS ORDERED: 0.9 % Sodium Chloride 1,000 ML IV ONE (10:44)
[2021-01-24 10:45] LABS: Large Platelets Present (Not Present); Platelet Estimate Normal (Normal)
[2021-01-24] MEDS ORDERED: Ondansetron 4 MG/2 ML VIAL IVP PRN (12:10)
[2021-01-24] MEDS ORDERED: Melatonin 3 MG TABLET PO PRN (12:10)
[2021-01-24] MEDS ORDERED: MOM Conc 10 ML UD.LIQ PO PRN (12:10)
[2021-01-24] MEDS ORDERED: Naloxone 0.4 MG/ML INJ IVP PRN (12:10)
[2021-01-24] MEDS ORDERED: Mag Hydrox/Al Hydrox/Simeth 30 ML UDC PO PRN (12:10)
[2021-01-24] MEDS ORDERED: Dextrose Gel 15 GM/37.5 ML TUBE PO PRN ×2 (12:12)
[2021-01-24] MEDS ORDERED: *HR* Dextrose 50 % in Water (Vial) 50 ML VIAL IVP PRN (12:12)
[2021-01-24] MEDS ORDERED: D5% in Water 1,000 ML IVC PRN (12:12)
[2021-01-24] MEDS ORDERED: Insulin Regular, Human 100 UNIT/ML SUBQ ONE (14:23)
[2021-01-24] MEDS: 0.9 % Sodium Chloride 1,000 ML IVC SCH ×2 (14:27→22:10)
[2021-01-24 14:52] LABS: Estimated Average Glucose 401 mg/dl; Hemoglobin A1C 15.6 %
[2021-01-24] MEDS: Insulin LISPRO 300 UNITS/3 ML VIAL SUBQ SCH ×3 (16:02→19:18)
[2021-01-24] MEDS ORDERED: Insulin LISPRO 300 UNITS/3 ML VIAL SUBQ SCH (16:30)
[2021-01-24] MEDS ORDERED: Albuterol 2.5 MG/3 ML NEBULIZER IH PRN (16:41)
[2021-01-24] MEDS: Ipratropium/Albuterol Neb 3 ML IH SCH ×2 (17:46→22:19)
[2021-01-24] MEDS: *HR* Heparin 5,000 UNIT/ML VIAL SQ SCH (22:11)
[2021-01-25 03:51] LABS: Hematocrit 45.2 % (35.3-44.9); Hemoglobin 12.7 g/dL (11.5-15.4); Mean Corpuscular HGB Conc 28.1 g/dL (31.6-35.5); Mean Corpuscular Hemoglobin 22.1 pg (28.0-33.3); Mean Corpuscular Volume 78.6 fL (83.0-100.0); Platelet Count 155 K/mcL (140-400); Red Blood Count 5.75 M/mcL (3.82-4.97); Red Cell Distribution Width 22.9 % (11.5-14.5); White Blood Count 9.1 K/mcL (4.3-11.1)
[2021-01-25 04:05] LABS: BUN/Creatinine Ratio 32 (6-26); Blood Urea Nitrogen 22 mg/dL (6-20); Carbon Dioxide 27 mEq/L (23-29); Chloride 105 mEq/L (98-107); Glucose 130 mg/dL (70-105); Magnesium 1.9 mg/dL (1.6-2.6); Osmolality,Calculated 289 (280-300); Potassium 3.7 mEq/L (3.5-5.1); Sodium 137 mEq/L (136-145); eGFR For African Americans > 60 (> 60); eGFR For Non-African Americans > 60 (> 60)
[2021-01-25] MEDS: Ipratropium/Albuterol Neb 3 ML IH SCH ×4 (04:29→22:39)
[2021-01-25] MEDS: *HR* Heparin 5,000 UNIT/ML VIAL SQ SCH ×3 (05:40→21:55)
[2021-01-25] MEDS: Metoprolol XL (24 HR) Succ 25 MG TAB.ER.24H PO SCH (07:47)
[2021-01-25] MEDS: Insulin LISPRO 300 UNITS/3 ML VIAL SUBQ SCH ×4 (08:00→21:57)
[2021-01-25] MEDS: Budesonide/Formoterol 160/4.5 1 PUFF INH IH SCH ×2 (09:26→22:39)
[2021-01-25] MEDS ORDERED: Bumetanide 1 MG TABLET PO ONE (13:23)
[2021-01-25] MEDS ORDERED: ceFAZolin 2,000 MG in Water for inj. (sterile) 20 ML IVP ONE (21:08)
[2021-01-25] MEDS: Acetaminophen 325 MG TABLET PO PRN (22:25)
[2021-01-26 01:55] LABS: Adenovirus Not Detected (Not Detect); Bordetella Pertussis Not Detected (Not Detect); Chlamydophila pneumoniae Not Detected (Not Detect); Coronavirus 229E Not Detected (Not Detect); Coronavirus HKU1 Not Detected (Not Detect); Coronavirus NL63 Not Detected (Not Detect); Coronavirus OC43 Not Detected (Not Detect); Human Metapneumovirus Not Detected (Not Detect); Human Rhinovirus/Enterovirus Not Detected (Not Detect); Influenza A Subtype 2009 H1 Not Detected (Not Detect); Influenza B Not Detected (Not Detect); Mycoplasma pneumoniae Not Detected (Not Detect); Parainfluenza Virus 1 Not Detected (Not Detect); Parainfluenza Virus 2 Not Detected (Not Detect); Parainfluenza Virus 3 Not Detected (Not Detect); Parainfluenza Virus 4 Not Detected (Not Detect); Respiratory Syncytial Virus Not Detected (Not Detect); SARS-CoV-2 Not Detected (Not Detect)
[2021-01-26] MEDS: Ipratropium/Albuterol Neb 3 ML IH SCH ×4 (04:01→22:33)
[2021-01-26] MEDS: *HR* Heparin 5,000 UNIT/ML VIAL SQ SCH ×2 (05:11→17:36)
[2021-01-26 05:31] LABS: Mean Corpuscular Hemoglobin 21.9 pg (28.0-33.3)
[2021-01-26 05:33] LABS: Immature Platelets 5.6 % (1.1-6.1); Mean Corpuscular HGB Conc 27.7 g/dL (31.6-35.5); Mean Corpuscular Volume 79.1 fL (83.0-100.0); Platelet Count 157 K/mcL (140-400); Red Blood Count 5.94 M/mcL (3.82-4.97); Red Cell Distribution Width 23.4 % (11.5-14.5); White Blood Count 11.9 K/mcL (4.3-11.1)
[2021-01-26 06:01] LABS: BUN/Creatinine Ratio 32 (6-26); Blood Urea Nitrogen 31 mg/dL (6-20); Calcium 8.7 mg/dL (8.6-10.3); Carbon Dioxide 29 mEq/L (23-29); Chloride 101 mEq/L (98-107); Glucose 271 mg/dL (70-105); Osmolality,Calculated 300 (280-300); Potassium 3.8 mEq/L (3.5-5.1); Sodium 137 mEq/L (136-145); eGFR For African Americans > 60 (> 60); eGFR For Non-African Americans 59 (> 60)
[2021-01-26] MEDS ORDERED: Ipratropium/Albuterol Neb 3 ML IH ONE (07:01)
[2021-01-26] MEDS: Nitroglycerin 0.4 MG TAB.SUBL SL PRN ×3 (07:04→07:19)
[2021-01-26] MEDS: Insulin LISPRO 300 UNITS/3 ML VIAL SUBQ SCH ×4 (08:00→20:47)
[2021-01-26] MEDS: Metoprolol XL (24 HR) Succ 25 MG TAB.ER.24H PO SCH (08:00)
[2021-01-26] MEDS ORDERED: ceFAZolin 2,000 MG in 0.9 % Sodium Chloride 100 ML IVP ONE (10:00)
[2021-01-26] MEDS: Budesonide/Formoterol 160/4.5 1 PUFF INH IH SCH ×2 (10:23→22:32)
[2021-01-26] MEDS ORDERED: tiZANidine 4 MG TABLET PO PRN (11:32)
[2021-01-26] MEDS ORDERED: *HR* FentaNYL (PF) 100 MCG/2 ML VIAL ONE ×2 (12:02→16:12)
[2021-01-26] MEDS ORDERED: *HR* Midazolam HCl 2 MG/2 ML VIAL ONE (12:02)
[2021-01-26] MEDS ORDERED: *HR* Propofol 200 MG/20 ML VIAL IVP ONE (12:03)
[2021-01-26] MEDS ORDERED: Lidocaine -MPF 4% 5 ML AMPUL ONE (12:03)
[2021-01-26] MEDS ORDERED: Dexamethasone 4 MG/ML VIAL ONE ×2 (12:03→13:32)
[2021-01-26] MEDS ORDERED: Lidocaine -MPF 2% 2 ML VIAL ONE (12:03)
[2021-01-26] MEDS ORDERED: Ondansetron 4 MG/2 ML VIAL ONE (12:03)
[2021-01-26] MEDS ORDERED: *HR* Succinylcholine 200 MG/10 ML VIAL IVP ONE (12:03)
[2021-01-26] MEDS ORDERED: *HR* Remifentanil 1 MG VIAL IVP ONE (12:22)
[2021-01-26] MEDS ORDERED: Albuterol 2.5 MG/3 ML NEBULIZER IH SCH (12:30)
[2021-01-26] MEDS ORDERED: Bacitracin 50,000 UNIT, Polymyxin B Sulfate 500,000 UNIT, Sodium Chloride IRRigation 1,... IR ONE (12:35)
[2021-01-26] MEDS ORDERED: Heparin 1,000 UNITS/500 mL 500 ML ONE (13:06)
[2021-01-26] MEDS ORDERED: Albuterol 2.5 MG/3 ML NEBULIZER IH ONE (13:12)
[2021-01-26] MEDS ORDERED: *HR* Vasopressin 20 UNIT/ML VIAL ONE (13:27)
[2021-01-26] MEDS ORDERED: *HR* PHENYLEPHRINE 1,000 MCG/10 ML SYRINGE IVP ONE (13:31)
[2021-01-26] MEDS ORDERED: *HR* Phenylephrine 10 MG/ML VIAL ONE (13:53)
[2021-01-26] MEDS ORDERED: Acetaminophen IV 1,000 MG/100 ML BAG IVPB ONE (14:45)
[2021-01-26] MEDS ORDERED: *HR* Metoprolol 5 MG/5 ML VIAL IVP ONE (16:35)
[2021-01-26] MEDS ORDERED: Albuterol 2.5 MG/3 ML NEBULIZER IH PRN (17:06)
[2021-01-26] MEDS ORDERED: Ondansetron 4 MG/2 ML VIAL IVP PRN (17:06)
[2021-01-26] MEDS ORDERED: *HR* HYDROmorphone (PF) 1 MG/ML SYRINGE ONE (17:13)
[2021-01-26] MEDS: *HR* HYDROmorphone (PF) 1 MG/ML SYRINGE IVP PRN ×2 (17:15→17:20)
[2021-01-26] MEDS: LIPASE PO SCH (17:36)
[2021-01-26] MEDS: AMYLASE PO SCH (17:36)
[2021-01-26] MEDS: PROTEASE PO SCH (17:36)
[2021-01-26] MEDS: Pregabalin 50 MG CAPSULE PO SCH ×2 (17:36→20:48)
[2021-01-26] MEDS ORDERED: Insulin DETEMIR 100 UNIT/ML X5UNITS SUBQ SCH (21:00)
[2021-01-27] MEDS: CeFAZolin 2 GM/120 ML BAG IVPB SCH ×2 (00:01→06:18)
[2021-01-27 02:00] LABS: Basophils % 0.1 %; Hematocrit 48.8 % (35.3-44.9); Hemoglobin 13.6 g/dL (11.5-15.4); Immature Granulocytes % 0.4 % (0-4); Lymphocytes # 0.2 K/mcL (0.6-4.6); Lymphocytes % 1.8 %; Mean Corpuscular HGB Conc 27.9 g/dL (31.6-35.5); Mean Corpuscular Hemoglobin 21.6 pg (28.0-33.3); Mean Corpuscular Volume 77.6 fL (83.0-100.0); Monocytes # 0.4 K/mcL (0.0-1.3); Monocytes % 3.1 %; Neutrophils # 11.7 K/mcL (1.6-8.9); Platelet Count 135 K/mcL (140-400); Red Blood Count 6.29 M/mcL (3.82-4.97); Red Cell Distribution Width 23.4 % (11.5-14.5); Segmented Neutrophils % 94.6 %; White Blood Count 12.4 K/mcL (4.3-11.1)
[2021-01-27 02:25] LABS: Anisocytosis 2+ (Not Present)
[2021-01-27 02:26] LABS: Hypochromasia Present (Not Present); Platelet Estimate Slight Decrease (Normal)
[2021-01-27 02:29] LABS: BUN/Creatinine Ratio 33 (6-26); Blood Urea Nitrogen 26 mg/dL (6-20); Carbon Dioxide 25 mEq/L (23-29); Chloride 100 mEq/L (98-107); Glucose 430 mg/dL (70-105); Osmolality,Calculated 299 (280-300); Potassium 4.8 mEq/L (3.5-5.1); Sodium 133 mEq/L (136-145); eGFR For African Americans > 60 (> 60); eGFR For Non-African Americans > 60 (> 60)
[2021-01-27] MEDS: Ipratropium/Albuterol Neb 3 ML IH SCH ×5 (03:13→23:18)
[2021-01-27] MEDS: LIPASE PO SCH ×3 (08:04→16:28)
[2021-01-27] MEDS: AMYLASE PO SCH ×3 (08:04→16:28)
[2021-01-27] MEDS: PROTEASE PO SCH ×3 (08:04→16:28)
[2021-01-27] MEDS: Aspirin Enteric Coated 81 MG Tablet PO SCH (09:13)
[2021-01-27] MEDS: Isosorbide MONOnitrate (24 HR) 60 MG TAB.ER.24H PO SCH (09:13)
[2021-01-27] MEDS: Bumetanide 1 MG TABLET PO SCH (09:13)
[2021-01-27] MEDS: Pregabalin 50 MG CAPSULE PO SCH ×3 (09:14→20:48)
[2021-01-27] MEDS: Insulin DETEMIR 100 UNIT/ML X5UNITS SUBQ SCH ×2 (09:16→20:53)
[2021-01-27] MEDS: Insulin LISPRO 300 UNITS/3 ML VIAL SUBQ SCH ×6 (09:17→21:09)
[2021-01-27] MEDS: Budesonide/Formoterol 160/4.5 1 PUFF INH IH SCH ×2 (09:49→23:18)
[2021-01-27] MEDS: *HR* OxyCODONE Immed Rel 5 MG TABLET PO PRN (12:58)
[2021-01-27] MEDS: Piperacillin/Tazobactam 3.375 GM in 0.9 % Sodium Chloride Mini Bag 100 ML IVPB SCH ×2 (16:26→23:21)
[2021-01-27] MEDS: Acetaminophen 325 MG TABLET PO PRN (20:48)
[2021-01-27] MEDS: Apixaban 5 MG TABLET PO SCH (20:49)
[2021-01-28 01:58] LABS: Hematocrit 41.7 % (35.3-44.9); Hemoglobin 11.7 g/dL (11.5-15.4); Immature Platelets 7.1 % (1.1-6.1); Mean Corpuscular HGB Conc 28.1 g/dL (31.6-35.5); Mean Corpuscular Hemoglobin 21.5 pg (28.0-33.3); Mean Corpuscular Volume 76.5 fL (83.0-100.0); Platelet Count 125 K/mcL (140-400); Red Blood Count 5.45 M/mcL (3.82-4.97); Red Cell Distribution Width 22.8 % (11.5-14.5); White Blood Count 14.6 K/mcL (4.3-11.1)
[2021-01-28 02:16] LABS: BUN/Creatinine Ratio 36 (6-26); Blood Urea Nitrogen 26 mg/dL (6-20); Calcium 8.6 mg/dL (8.6-10.3); Carbon Dioxide 29 mEq/L (23-29); Chloride 101 mEq/L (98-107); Glucose 176 mg/dL (70-105); Osmolality,Calculated 291 (280-300); Potassium 3.8 mEq/L (3.5-5.1); Sodium 136 mEq/L (136-145); eGFR For African Americans > 60 (> 60); eGFR For Non-African Americans > 60 (> 60)
[2021-01-28] MEDS: Ipratropium/Albuterol Neb 3 ML IH SCH ×4 (03:47→22:24)
[2021-01-28] MEDS: Acetaminophen 325 MG TABLET PO PRN (06:26)
[2021-01-28] MEDS: Bumetanide 1 MG TABLET PO SCH (08:49)
[2021-01-28] MEDS: Isosorbide MONOnitrate (24 HR) 60 MG TAB.ER.24H PO SCH (08:49)
[2021-01-28] MEDS: Apixaban 5 MG TABLET PO SCH ×2 (08:50→20:04)
[2021-01-28] MEDS: Aspirin Enteric Coated 81 MG Tablet PO SCH (08:50)
[2021-01-28] MEDS: Piperacillin/Tazobactam 3.375 GM in 0.9 % Sodium Chloride Mini Bag 100 ML IVPB SCH ×3 (08:52→23:27)
[2021-01-28] MEDS: Pregabalin 50 MG CAPSULE PO SCH ×3 (08:52→20:05)
[2021-01-28] MEDS: PROTEASE PO SCH ×3 (08:56→19:59)
[2021-01-28] MEDS: LIPASE PO SCH ×3 (08:56→19:59)
[2021-01-28] MEDS: AMYLASE PO SCH ×3 (08:56→19:59)
[2021-01-28] MEDS: Insulin LISPRO 300 UNITS/3 ML VIAL SUBQ SCH ×7 (08:57→20:21)
[2021-01-28] MEDS: Insulin DETEMIR 100 UNIT/ML X5UNITS SUBQ SCH ×2 (09:07→20:05)
[2021-01-28] MEDS: Budesonide/Formoterol 160/4.5 1 PUFF INH IH SCH ×2 (10:59→22:26)
[2021-01-28] MEDS: *HR* OxyCODONE Immed Rel 5 MG TABLET PO PRN ×2 (16:56→23:34)
[2021-01-29 01:28] LABS: Hemoglobin 11.4 g/dL (11.5-15.4); White Blood Count 12.3 K/mcL (4.3-11.1)
[2021-01-29 01:30] LABS: Hematocrit 41.5 % (35.3-44.9); Immature Platelets 6.7 % (1.1-6.1); Mean Corpuscular HGB Conc 27.5 g/dL (31.6-35.5); Mean Corpuscular Hemoglobin 21.3 pg (28.0-33.3); Mean Corpuscular Volume 77.6 fL (83.0-100.0); Platelet Count 115 K/mcL (140-400); Red Blood Count 5.35 M/mcL (3.82-4.97); Red Cell Distribution Width 22.4 % (11.5-14.5)
[2021-01-29 01:48] LABS: BUN/Creatinine Ratio 30 (6-26); Blood Urea Nitrogen 24 mg/dL (6-20); Calcium 8.8 mg/dL (8.6-10.3); Carbon Dioxide 30 mEq/L (23-29); Chloride 102 mEq/L (98-107); Glucose 247 mg/dL (70-105); Osmolality,Calculated 296 (280-300); Potassium 4.1 mEq/L (3.5-5.1); Sodium 137 mEq/L (136-145); eGFR For African Americans > 60 (> 60); eGFR For Non-African Americans > 60 (> 60)
[2021-01-29] MEDS: Ipratropium/Albuterol Neb 3 ML IH SCH ×4 (04:26→22:24)
[2021-01-29] MEDS: Aspirin Enteric Coated 81 MG Tablet PO SCH (07:57)
[2021-01-29] MEDS: Isosorbide MONOnitrate (24 HR) 60 MG TAB.ER.24H PO SCH (07:57)
[2021-01-29] MEDS: Bumetanide 1 MG TABLET PO SCH (07:57)
[2021-01-29] MEDS: Apixaban 5 MG TABLET PO SCH ×2 (07:57→20:16)
[2021-01-29] MEDS: Pregabalin 50 MG CAPSULE PO SCH ×3 (07:57→20:17)
[2021-01-29] MEDS: Piperacillin/Tazobactam 3.375 GM in 0.9 % Sodium Chloride Mini Bag 100 ML IVPB SCH ×3 (08:00→23:29)
[2021-01-29] MEDS: Insulin LISPRO 300 UNITS/3 ML VIAL SUBQ SCH ×7 (08:02→20:33)
[2021-01-29] MEDS: Insulin DETEMIR 100 UNIT/ML X5UNITS SUBQ SCH ×2 (09:54→20:17)
[2021-01-29] MEDS: Budesonide/Formoterol 160/4.5 1 PUFF INH IH SCH ×2 (11:00→22:24)
[2021-01-30] MEDS: Ipratropium/Albuterol Neb 3 ML IH SCH ×5 (03:42→22:15)
[2021-01-30] MEDS: Aspirin Enteric Coated 81 MG Tablet PO SCH (08:21)
[2021-01-30] MEDS: Isosorbide MONOnitrate (24 HR) 60 MG TAB.ER.24H PO SCH (08:21)
[2021-01-30] MEDS: Bumetanide 1 MG TABLET PO SCH (08:22)
[2021-01-30] MEDS: Apixaban 5 MG TABLET PO SCH ×2 (08:22→19:41)
[2021-01-30] MEDS: Piperacillin/Tazobactam 3.375 GM in 0.9 % Sodium Chloride Mini Bag 100 ML IVPB SCH ×3 (08:23→23:30)
[2021-01-30] MEDS: Insulin DETEMIR 100 UNIT/ML X5UNITS SUBQ SCH ×2 (08:24→19:45)
[2021-01-30] MEDS: Insulin LISPRO 300 UNITS/3 ML VIAL SUBQ SCH ×7 (08:30→19:42)
[2021-01-30] MEDS: Pregabalin 50 MG CAPSULE PO SCH ×3 (08:45→19:41)
[2021-01-30] MEDS: Acetaminophen 325 MG TABLET PO PRN (10:09)
[2021-01-30] MEDS: Budesonide/Formoterol 160/4.5 1 PUFF INH IH SCH ×3 (10:45→22:16)
[2021-01-30] MEDS: PROTEASE PO SCH ×2 (16:38→16:39)
[2021-01-30] MEDS: LIPASE PO SCH ×2 (16:38→16:39)
[2021-01-30] MEDS: AMYLASE PO SCH ×2 (16:38→16:39)
[2021-01-30] MEDS: *HR* OxyCODONE Immed Rel 5 MG TABLET PO PRN (19:41)
[2021-01-31] MEDS: Ipratropium/Albuterol Neb 3 ML IH SCH ×4 (03:44→21:35)
[2021-01-31] MEDS: *HR* OxyCODONE Immed Rel 5 MG TABLET PO PRN ×3 (05:15→21:13)
[2021-01-31] MEDS: Apixaban 5 MG TABLET PO SCH ×2 (09:02→21:02)
[2021-01-31] MEDS: Bumetanide 1 MG TABLET PO SCH (09:03)
[2021-01-31] MEDS: Aspirin Enteric Coated 81 MG Tablet PO SCH (09:03)
[2021-01-31] MEDS: Isosorbide MONOnitrate (24 HR) 60 MG TAB.ER.24H PO SCH (09:04)
[2021-01-31] MEDS: Pregabalin 50 MG CAPSULE PO SCH ×3 (09:04→21:02)
[2021-01-31] MEDS: Piperacillin/Tazobactam 3.375 GM in 0.9 % Sodium Chloride Mini Bag 100 ML IVPB SCH ×3 (09:04→23:47)
[2021-01-31] MEDS: LIPASE PO SCH ×3 (09:05→15:41)
[2021-01-31] MEDS: AMYLASE PO SCH ×3 (09:05→15:41)
[2021-01-31] MEDS: PROTEASE PO SCH ×3 (09:05→15:41)
[2021-01-31] MEDS: Insulin DETEMIR 100 UNIT/ML X5UNITS SUBQ SCH ×2 (09:08→21:03)
[2021-01-31] MEDS: Insulin LISPRO 300 UNITS/3 ML VIAL SUBQ SCH ×6 (09:09→21:03)
[2021-01-31] MEDS: Budesonide/Formoterol 160/4.5 1 PUFF INH IH SCH ×2 (10:09→21:35)
[2021-01-31] MEDS: Acetaminophen 325 MG TABLET PO PRN (11:34)
[2021-02-01] MEDS: *HR* OxyCODONE Immed Rel 5 MG TABLET PO PRN ×2 (01:39→08:36)
[2021-02-01] MEDS: Ipratropium/Albuterol Neb 3 ML IH SCH ×2 (03:23→08:27)
[2021-02-01] MEDS: Budesonide/Formoterol 160/4.5 1 PUFF INH IH SCH (08:27)
[2021-02-01] MEDS: Isosorbide MONOnitrate (24 HR) 60 MG TAB.ER.24H PO SCH (08:29)
[2021-02-01] MEDS: Bumetanide 1 MG TABLET PO SCH (08:29)
[2021-02-01] MEDS: Aspirin Enteric Coated 81 MG Tablet PO SCH (08:29)
[2021-02-01] MEDS: Pregabalin 50 MG CAPSULE PO SCH (08:30)
[2021-02-01] MEDS: Apixaban 5 MG TABLET PO SCH (08:30)
[2021-02-01] MEDS: Insulin DETEMIR 100 UNIT/ML X5UNITS SUBQ SCH (08:30)
[2021-02-01] MEDS: Insulin LISPRO 300 UNITS/3 ML VIAL SUBQ SCH (08:32)
[2021-02-01] MEDS: Piperacillin/Tazobactam 3.375 GM in 0.9 % Sodium Chloride Mini Bag 100 ML IVPB SCH (08:39)
[2021-02-01 10:22] LABS: Influenza A PCR Negative (Negative); Influenza B PCR Negative (Negative); Resp. Syncytial Virus PCR Negative (Negative)
[2021-02-01 10:36] LABS: SARS-CoV-2 by PCR (In House) Negative (Negative)
[2021-02-01 11:03] VITALS: BP 102/63
== END 2021-02-01 13:26 | DRG 471 ==
LOC: EMEROOARM 07:58 → 3NENU 07:58 → SUATTDRO 11:21 → 3NENU 11:51 → SUATTDRO 01-26 12:35
PROVIDERS: ADMIT Family Medicine; ATTEND Internal Medicine

== ENCOUNTER 2021-05-25 06:05 | Inpatient (IN) ==
[2021-05-25 09:16] LABS: Basophils # 0.1 K/mcL (0.0-0.2); Basophils % 0.5 %; Eosinophils # 0.2 K/mcL (0.0-0.6); Eosinophils % 1.2 %; Hematocrit 48.5 % (35.3-44.9); Hemoglobin 14.1 g/dL (11.5-15.4); Immature Granulocytes % 0.8 % (0-4); Lymphocytes # 1.5 K/mcL (0.6-4.6); Lymphocytes % 11.7 %; Mean Corpuscular HGB Conc 29.1 g/dL (31.6-35.5); Mean Corpuscular Hemoglobin 19.7 pg (28.0-33.3); Mean Corpuscular Volume 67.7 fL (83.0-100.0); Monocytes # 0.9 K/mcL (0.0-1.3); Monocytes % 6.9 %; Neutrophils # 10.4 K/mcL (1.6-8.9); Nucleated Red Blood Cells 0.4 /100 WBC (0); Platelet Count 247 K/mcL (140-400); Red Blood Count 7.16 M/mcL (3.82-4.97); Red Cell Distribution Width 25.4 % (11.5-14.5); Segmented Neutrophils % 78.9 %; White Blood Count 13.2 K/mcL (4.3-11.1)
[2021-05-25 09:18] LABS: Alanine Aminotransferase 4 Units/L (7-52); Albumin 3.6 g/dL (3.5-5.7); Albumin/Globulin Ratio 1.3 (1.1-2.2); Alkaline Phosphatase 95 Units/L (34-104); Aspartate Amino Transferase 12 Units/L (13-39); BUN/Creatinine Ratio 30 (6-26); Bilirubin,Direct 0.1 mg/dL (0.0-0.2); Bilirubin,Indirect 0.3 mg/dL (0.0-1.0); Bilirubin,Total 0.4 mg/dL (0.3-1.0); Blood Urea Nitrogen 50 mg/dL (6-20); Calcium 8.8 mg/dL (8.6-10.3); Carbon Dioxide 26 mEq/L (23-29); Chloride 92 mEq/L (98-107); Ethanol < 10 mg/dL (Less than 10); Globulin 2.7 g/dL (2.4-3.5); Glucose 56 mg/dL (70-105); Osmolality,Calculated 275 (280-300); Potassium 3.9 mEq/L (3.5-5.1); Sodium 127 mEq/L (136-145); Total Protein 6.3 g/dL (6.4-8.9); Troponin I 0.07 ng/mL (< 0.04); eGFR For African Americans 38 (> 60); eGFR For Non-African Americans 32 (> 60)
[2021-05-25 09:25] LABS: Anisocytosis 3+ (Not Present); Hypochromasia Present (Not Present); Microcytosis Present (Not Present); Platelet Estimate Normal (Normal)
[2021-05-25 09:36] LABS: Bilirubin,Urine Negative (Negative); Blood,Urine Negative (Negative); Clarity,Urine Clear (Clear); Color,Urine Light-Yellow (Yellow); Glucose,Urine (UA) 30 mg/dL (Normal); Hyaline Casts,Urine Few per lpf (None Seen); Ketones,Urine Negative (Negative); Leukocyte Esterase,Urine Negative (Negative); Nitrite,Urine Negative (Negative); Protein,Urine 30 mg/dL (Neg-Trace); RBC,Urine 0-3 per hpf (0-3); Specific Gravity,Urine 1.008 (1.010-1.025); Urobilinogen,Urine Normal (Normal); WBC,Urine 0-3 per hpf (0-3)
[2021-05-25 09:41] LABS: Amphetamine Screen,Urine Negative ng/mL (Cutoff=1000); Barbiturate Screen,Urine Negative ng/mL (Cutoff=200); Benzodiazepines Screen,Urine Negative ng/mL (Cutoff=200); Cannabinoid Screen,Urine Negative ng/mL (Cutoff = 50); Cocaine Screen,Urine Negative ng/mL (Cutoff= 300); Opiate Screen,Urine Negative ng/mL (Cutoff=300); Phencyclidine Screen,Urine Negative ng/mL (Cutoff=25)
[2021-05-25] MEDS ORDERED: *HR* Dextrose 50 % in Water (Vial) 50 ML VIAL ONE (11:15)
[2021-05-25] MEDS ORDERED: Azithromycin 500 MG in D5% in Water 250 ML IVPB ONE (11:18)
[2021-05-25] MEDS ORDERED: 0.9 % Sodium Chloride 500 ML IVC ONE (11:23)
[2021-05-25] MEDS ORDERED: *HR* Dextrose 50 % in Water (Vial) 50 ML VIAL IP ONE (11:30)
[2021-05-25] MEDS ORDERED: Naloxone 0.4 MG/ML INJ IVP PRN (11:33)
[2021-05-25] MEDS ORDERED: Acetaminophen 325 MG TABLET PO PRN (11:33)
[2021-05-25] MEDS ORDERED: Ondansetron 4 MG/2 ML VIAL IVP PRN (11:33)
[2021-05-25] MEDS ORDERED: 0.9 % Sodium Chloride 500 ML ONE (11:40)
[2021-05-25] MEDS ORDERED: *HR* Dextrose 50 % in Water (Syg) 50 ML SYRINGE IVP PRN (11:43)
[2021-05-25] MEDS ORDERED: cefTRIAXone 1,000 MG in 0.9 % Sodium Chloride Mini Bag 100 ML IVPB ONE (11:45)
[2021-05-25 12:29] LABS: Thyroid Stimulating Hormone 1.946 mcIU/mL (0.340-5.600)
[2021-05-25 14:22] LABS: VBG HCO3 26 mEq/L (21-27); VBG PCO2 43 mmHg (41-51); VBG PO2 172 mmHg (25-50)
[2021-05-25 14:45] LABS: Troponin I 0.12 ng/mL (< 0.04)
[2021-05-25 14:57] LABS: Potassium 3.8 mEq/L (3.5-5.1)
[2021-05-25] MEDS: *HR* Dextrose 50 % in Water (Vial) 50 ML VIAL IVP PRN (15:59)
[2021-05-25] MEDS ORDERED: *HR* Heparin 5,000 UNIT/ML VIAL IVP ONE (19:15)
[2021-05-25] MEDS ORDERED: Heparin 25,000UNIT/250ML 1/2NS 25,000 UNIT/250 ML IV.SOLN IVC SCH (19:15)
[2021-05-25] MEDS ORDERED: *HR* Heparin 5,000 UNIT/ML VIAL IVP PRN ×2 (19:15)
[2021-05-25] MEDS: Heparin 25,000UNIT/250ML 1/2NS 25,000 UNIT/250 ML IV.SOLN IVC SCH (21:03)
[2021-05-25 21:15] LABS: Hematocrit 46.5 % (35.3-44.9); Hemoglobin 13.4 g/dL (11.5-15.4); Immature Platelets 8.5 % (1.1-6.1); Mean Corpuscular HGB Conc 28.8 g/dL (31.6-35.5); Mean Corpuscular Hemoglobin 19.4 pg (28.0-33.3); Mean Corpuscular Volume 67.4 fL (83.0-100.0); Platelet Count 212 K/mcL (140-400); Red Cell Distribution Width 25.2 % (11.5-14.5); White Blood Count 11.3 K/mcL (4.3-11.1)
[2021-05-25 21:16] LABS: INR 1.6; Prothrombin Time 18.8 Seconds (9.4-12.1)
[2021-05-25 21:19] LABS: Activated Partial Thrombo Time 33.5 Seconds (26.0-36.0)
[2021-05-25 21:37] LABS: Heparin anti-factor XA UFH 1.01 IU/mL (0.30-0.70)
[2021-05-25 23:55] LABS: Potassium,Urine 7.6 mEq/L; Protein/Creatinine Ratio,Urine 1.17 mg/mg (0.00-0.20); Sodium, Urine 48.8 mEq/L
[2021-05-26 03:39] LABS: Lymphocytes % 12.1 %; Monocytes % 7.9 %; Nucleated Red Blood Cells 0.4 /100 WBC (0)
[2021-05-26 03:41] LABS: Basophils # 0.1 K/mcL (0.0-0.2); Basophils % 0.6 %; Eosinophils # 0.1 K/mcL (0.0-0.6); Eosinophils % 1.1 %; Hematocrit 46.4 % (35.3-44.9); Immature Granulocytes % 0.5 % (0-4); Immature Platelets 9.1 % (1.1-6.1); Lymphocytes # 1.4 K/mcL (0.6-4.6); Mean Corpuscular Volume 67.8 fL (83.0-100.0); Monocytes # 0.9 K/mcL (0.0-1.3); Neutrophils # 8.8 K/mcL (1.6-8.9); Platelet Count 207 K/mcL (140-400); Red Blood Count 6.84 M/mcL (3.82-4.97); Red Cell Distribution Width 25.5 % (11.5-14.5); Segmented Neutrophils % 77.8 %; White Blood Count 11.3 K/mcL (4.3-11.1)
[2021-05-26 03:53] LABS: BUN/Creatinine Ratio 41 (6-26); Blood Urea Nitrogen 42 mg/dL (6-20); Calcium 8.3 mg/dL (8.6-10.3); Carbon Dioxide 28 mEq/L (23-29); Chloride 98 mEq/L (98-107); Glucose 88 mg/dL (70-105); Osmolality,Calculated 288 (280-300); Potassium 3.6 mEq/L (3.5-5.1); Sodium 134 mEq/L (136-145); eGFR For African Americans > 60 (> 60); eGFR For Non-African Americans 55 (> 60)
[2021-05-26 04:09] LABS: Anisocytosis 3+ (Not Present); Hypochromasia Present (Not Present)
[2021-05-26 04:10] LABS: Microcytosis Present (Not Present); Platelet Estimate Normal (Normal)
[2021-05-26] MEDS: *HR* Dextrose 50 % in Water (Vial) 50 ML VIAL IVP PRN (04:21)
[2021-05-26 04:22] LABS: Estimated Average Glucose 329 mg/dl; Hemoglobin A1C 13.1 %
[2021-05-26] MEDS ORDERED: Albuterol 2.5 MG/3 ML NEBULIZER IH PRN (07:58)
[2021-05-26] MEDS ORDERED: Cholecalciferol (D-3) 1,000 UNIT (25MCG) TABLET PO SCH (09:00)
[2021-05-26] MEDS ORDERED: Pregabalin 50 MG CAPSULE PO SCH (09:00)
[2021-05-26] MEDS: Aspirin Enteric Coated 81 MG Tablet PO SCH (09:14)
[2021-05-26] MEDS: NIFEdipine XL (24 HR) 30 MG TAB.ER.24 PO SCH (09:14)
[2021-05-26] MEDS: Topiramate 25 MG TABLET PO SCH ×2 (09:14→20:57)
[2021-05-26 11:26] LABS: Adenovirus Not Detected (Not Detect); Bordetella Pertussis Not Detected (Not Detect); Chlamydophila pneumoniae Not Detected (Not Detect); Coronavirus 229E Not Detected (Not Detect); Coronavirus HKU1 Not Detected (Not Detect); Coronavirus NL63 Not Detected (Not Detect); Coronavirus OC43 Not Detected (Not Detect); Human Metapneumovirus Not Detected (Not Detect); Human Rhinovirus/Enterovirus Not Detected (Not Detect); Influenza A Subtype 2009 H1 Not Detected (Not Detect); Influenza B Not Detected (Not Detect); Mycoplasma pneumoniae Not Detected (Not Detect); Parainfluenza Virus 1 Not Detected (Not Detect); Parainfluenza Virus 2 Not Detected (Not Detect); Parainfluenza Virus 3 Not Detected (Not Detect); Parainfluenza Virus 4 Not Detected (Not Detect); Respiratory Syncytial Virus Not Detected (Not Detect); SARS-CoV-2 Not Detected (Not Detect)
[2021-05-26] MEDS: cefTRIAXone 1,000 MG in Water for inj. (sterile) 10 ML IVP SCH (12:00)
[2021-05-26] MEDS: Azithromycin 500 MG in 0.9 % Sodium Chloride 250 ML IVPB SCH (12:01)
[2021-05-26] MEDS: carvediloL 6.25 MG TABLET PO SCH (17:35)
[2021-05-26 18:32] LABS: Triiodothyronine (T3) Free 2.31 pg/mL (2.50-3.90)
[2021-05-27 01:24] LABS: BUN/Creatinine Ratio 38 (6-26); Blood Urea Nitrogen 33 mg/dL (6-20); Calcium 8.4 mg/dL (8.6-10.3); Carbon Dioxide 30 mEq/L (23-29); Chloride 101 mEq/L (98-107); Glucose 125 mg/dL (70-105); Magnesium 2.1 mg/dL (1.6-2.6); Osmolality,Calculated 293 (280-300); Potassium 4.4 mEq/L (3.5-5.1); Sodium 137 mEq/L (136-145); eGFR For African Americans > 60 (> 60); eGFR For Non-African Americans > 60 (> 60)
[2021-05-27] MEDS: Heparin 25,000UNIT/250ML 1/2NS 25,000 UNIT/250 ML IV.SOLN IVC SCH (04:37)
[2021-05-27] MEDS ORDERED: Regadenoson 0.4 MG/5 ML SYRINGE IVP ONE (08:04)
[2021-05-27 08:13] LABS: Basophils # 0.1 K/mcL (0.0-0.2); Basophils % 0.7 %; Eosinophils # 0.1 K/mcL (0.0-0.6); Eosinophils % 1.1 %; Hematocrit 45.9 % (35.3-44.9); Hemoglobin 12.8 g/dL (11.5-15.4); Immature Granulocytes % 0.5 % (0-4); Immature Platelets 6.7 % (1.1-6.1); Lymphocytes # 1.3 K/mcL (0.6-4.6); Mean Corpuscular HGB Conc 27.9 g/dL (31.6-35.5); Mean Corpuscular Hemoglobin 19.1 pg (28.0-33.3); Mean Corpuscular Volume 68.6 fL (83.0-100.0); Monocytes % 9.6 %; Neutrophils # 8.1 K/mcL (1.6-8.9); Nucleated Red Blood Cells 0.3 /100 WBC (0); Platelet Count 208 K/mcL (140-400); Red Blood Count 6.69 M/mcL (3.82-4.97); Red Cell Distribution Width 25.1 % (11.5-14.5); Segmented Neutrophils % 76.1 %; White Blood Count 10.6 K/mcL (4.3-11.1)
[2021-05-27 08:34] LABS: Anisocytosis 3+ (Not Present); Hypochromasia Present (Not Present); Ovalocytes 2+ (Not Present); Platelet Estimate Normal (Normal); Poikilocytosis 3+ (Not Present)
[2021-05-27] MEDS: carvediloL 6.25 MG TABLET PO SCH ×3 (09:33→17:29)
[2021-05-27] MEDS: cefTRIAXone 1,000 MG in Water for inj. (sterile) 10 ML IVP ONE ×2 (11:00→16:27)
[2021-05-27] MEDS: NIFEdipine XL (24 HR) 30 MG TAB.ER.24 PO SCH (11:04)
[2021-05-27] MEDS: Topiramate 25 MG TABLET PO SCH ×2 (11:04→22:41)
[2021-05-27] MEDS: Aspirin Enteric Coated 81 MG Tablet PO SCH (11:04)
[2021-05-27] MEDS: Cholecalciferol (D-3) 1,000 UNIT (25MCG) TABLET PO SCH (11:04)
[2021-05-27] MEDS ORDERED: Cefdinir 300 MG CAPSULE PO SCH (11:30)
[2021-05-27] MEDS: cefTRIAXone 1,000 MG in Water for inj. (sterile) 10 ML IVP SCH (11:31)
[2021-05-27] MEDS: Azithromycin 250 MG TABLET PO SCH (12:36)
[2021-05-27] MEDS: Azithromycin 500 MG in 0.9 % Sodium Chloride 250 ML IVPB SCH (12:51)
[2021-05-27] MEDS ORDERED: *HR* Promethazine 25 MG/ML VIAL IM PRN (13:37)
[2021-05-27] MEDS ORDERED: *HR* Heparin 5,000 UNIT/ML VIAL SQ SCH (14:00)
[2021-05-27] MEDS ORDERED: carvediloL 6.25 MG TABLET PO SCH (17:00)
[2021-05-27] MEDS ORDERED: *HR* Dextrose 50 % in Water (Vial) 50 ML VIAL IVP PRN (17:27)
[2021-05-27] MEDS ORDERED: Dextrose Gel 15 GM/37.5 ML TUBE PO PRN ×2 (17:27)
[2021-05-27] MEDS ORDERED: D5% in Water 1,000 ML IVC PRN (17:27)
[2021-05-27] MEDS: Apixaban 5 MG TABLET PO SCH (18:26)
[2021-05-27] MEDS: Insulin LISPRO 300 UNITS/3 ML VIAL SUBQ SCH (22:37)
[2021-05-28 07:12] LABS: Immature Granulocytes % 0.3 % (0-4)
[2021-05-28 07:14] LABS: Basophils % 0.4 %; Eosinophils # 0.2 K/mcL (0.0-0.6); Eosinophils % 1.6 %; Hematocrit 43.7 % (35.3-44.9); Hemoglobin 12.2 g/dL (11.5-15.4); Immature Platelets 5.7 % (1.1-6.1); Lymphocytes # 0.9 K/mcL (0.6-4.6); Lymphocytes % 10.3 %; Mean Corpuscular HGB Conc 27.9 g/dL (31.6-35.5); Mean Corpuscular Hemoglobin 19.5 pg (28.0-33.3); Mean Corpuscular Volume 69.9 fL (83.0-100.0); Monocytes # 0.9 K/mcL (0.0-1.3); Monocytes % 9.8 %; Neutrophils # 7.1 K/mcL (1.6-8.9); Nucleated Red Blood Cells 0.3 /100 WBC (0); Platelet Count 184 K/mcL (140-400); Red Blood Count 6.25 M/mcL (3.82-4.97); Red Cell Distribution Width 25.1 % (11.5-14.5); Segmented Neutrophils % 77.6 %; White Blood Count 9.1 K/mcL (4.3-11.1)
[2021-05-28 07:36] LABS: BUN/Creatinine Ratio 34 (6-26); Blood Urea Nitrogen 22 mg/dL (6-20); Calcium 8.9 mg/dL (8.6-10.3); Carbon Dioxide 29 mEq/L (23-29); Chloride 103 mEq/L (98-107); Glucose 161 mg/dL (70-105); Osmolality,Calculated 291 (280-300); Phosphorous 2.9 mg/dL (2.7-4.5); Potassium 4.3 mEq/L (3.5-5.1); Sodium 137 mEq/L (136-145); eGFR For African Americans > 60 (> 60); eGFR For Non-African Americans > 60 (> 60)
[2021-05-28] MEDS: Insulin LISPRO 300 UNITS/3 ML VIAL SUBQ SCH ×4 (08:00→21:07)
[2021-05-28] MEDS: Apixaban 5 MG TABLET PO SCH ×2 (08:00→21:07)
[2021-05-28] MEDS: Azithromycin 250 MG TABLET PO SCH (08:02)
[2021-05-28] MEDS: Cefdinir 300 MG CAPSULE PO SCH ×2 (08:02→21:07)
[2021-05-28] MEDS: NIFEdipine XL (24 HR) 30 MG TAB.ER.24 PO SCH (08:02)
[2021-05-28] MEDS: Cholecalciferol (D-3) 1,000 UNIT (25MCG) TABLET PO SCH (08:03)
[2021-05-28] MEDS: Aspirin Enteric Coated 81 MG Tablet PO SCH (08:04)
[2021-05-28] MEDS: Topiramate 25 MG TABLET PO SCH ×2 (08:04→21:07)
[2021-05-28] MEDS: carvediloL 6.25 MG TABLET PO SCH ×2 (08:05→15:56)
[2021-05-28 08:16] LABS: Anisocytosis 2+ (Not Present); Hypochromasia Present (Not Present); Microcytosis Present (Not Present); Platelet Estimate Normal (Normal)
[2021-05-28] MEDS ORDERED: lisinopriL 20 MG TABLET PO SCH (09:00)
[2021-05-28] MEDS: lisinopriL 10 MG TABLET PO SCH (10:45)
[2021-05-29 02:14] LABS: Basophils % 0.8 %; Hemoglobin 12.2 g/dL (11.5-15.4); Mean Corpuscular HGB Conc 27.1 g/dL (31.6-35.5)
[2021-05-29 02:15] LABS: Basophils # 0.1 K/mcL (0.0-0.2); Eosinophils # 0.2 K/mcL (0.0-0.6); Eosinophils % 2.4 %; Immature Granulocytes % 0.3 % (0-4); Immature Platelets 5.5 % (1.1-6.1); Lymphocytes # 0.9 K/mcL (0.6-4.6); Lymphocytes % 11.4 %; Mean Corpuscular Hemoglobin 19.4 pg (28.0-33.3); Mean Corpuscular Volume 71.4 fL (83.0-100.0); Monocytes # 0.9 K/mcL (0.0-1.3); Monocytes % 11.4 %; Neutrophils # 5.6 K/mcL (1.6-8.9); Nucleated Red Blood Cells 0.3 /100 WBC (0); Platelet Count 155 K/mcL (140-400); Red Cell Distribution Width 25.4 % (11.5-14.5); Segmented Neutrophils % 73.7 %; White Blood Count 7.6 K/mcL (4.3-11.1)
[2021-05-29 02:20] LABS: Anisocytosis 2+ (Not Present); Hypochromasia Present (Not Present); Microcytosis Present (Not Present); Platelet Estimate Normal (Normal)
[2021-05-29 02:31] LABS: BUN/Creatinine Ratio 28 (6-26); Blood Urea Nitrogen 21 mg/dL (6-20); Calcium 9.1 mg/dL (8.6-10.3); Carbon Dioxide 29 mEq/L (23-29); Chloride 104 mEq/L (98-107); Glucose 189 mg/dL (70-105); Osmolality,Calculated 292 (280-300); Sodium 137 mEq/L (136-145); eGFR For African Americans > 60 (> 60); eGFR For Non-African Americans > 60 (> 60)
[2021-05-29] MEDS: Topiramate 25 MG TABLET PO SCH (07:29)
[2021-05-29] MEDS: Azithromycin 250 MG TABLET PO SCH (07:30)
[2021-05-29] MEDS: lisinopriL 10 MG TABLET PO SCH (07:30)
[2021-05-29] MEDS: Cefdinir 300 MG CAPSULE PO SCH (07:31)
[2021-05-29] MEDS: Cholecalciferol (D-3) 1,000 UNIT (25MCG) TABLET PO SCH (07:32)
[2021-05-29] MEDS: NIFEdipine XL (24 HR) 30 MG TAB.ER.24 PO SCH (07:33)
[2021-05-29] MEDS: Apixaban 5 MG TABLET PO SCH (07:33)
[2021-05-29] MEDS: Aspirin Enteric Coated 81 MG Tablet PO SCH (07:34)
[2021-05-29] MEDS: Insulin LISPRO 300 UNITS/3 ML VIAL SUBQ SCH ×3 (07:37→17:08)
[2021-05-29] MEDS: carvediloL 6.25 MG TABLET PO SCH ×2 (07:42→16:02)
[2021-05-29 10:33] VITALS: PULSE 70
[2021-05-29 15:28] VITALS: BP 118/67; TEMP 97.6; O2SAT 93
== END 2021-05-29 18:19 | disposition home health service (06) | DRG 193 ==
LOC: CDU 06:05 → EMEROOARM 06:05 → CDU 12:26 → 2NENU 22:34
PROVIDERS: ADMIT Pharmacist; ATTEND Pharmacist

== ENCOUNTER 2021-06-28 05:09 | Observation (INO) ==
[2021-06-28] MEDS ORDERED: Ondansetron 4 MG/2 ML VIAL IVP ONE (06:31)
[2021-06-28] MEDS ORDERED: 0.9 % Sodium Chloride 1,000 ML IVC ONE (06:31)
[2021-06-28] MEDS ORDERED: *HR* Dextrose 50 % in Water (Vial) 50 ML VIAL IVP ONE (08:14)
[2021-06-28 08:16] LABS: Basophils # 0.1 K/mcL (0.0-0.2); Basophils % 0.4 %; Eosinophils # 0.2 K/mcL (0.0-0.6); Eosinophils % 1.5 %; Hematocrit 53.9 % (35.3-44.9); Hemoglobin 16.2 g/dL (11.5-15.4); Immature Granulocytes % 0.4 % (0-4); Lymphocytes # 2.1 K/mcL (0.6-4.6); Lymphocytes % 14.7 %; Mean Corpuscular HGB Conc 30.1 g/dL (31.6-35.5); Mean Corpuscular Volume 69.9 fL (83.0-100.0); Monocytes # 1.2 K/mcL (0.0-1.3); Monocytes % 8.1 %; Neutrophils # 10.8 K/mcL (1.6-8.9); Platelet Count 225 K/mcL (140-400); Red Blood Count 7.71 M/mcL (3.82-4.97); Red Cell Distribution Width 30.5 % (11.5-14.5); Segmented Neutrophils % 74.9 %; White Blood Count 14.4 K/mcL (4.3-11.1)
[2021-06-28 08:26] LABS: Activated Partial Thrombo Time 37.2 Seconds (26.0-36.0); INR 1.2; Prothrombin Time 13.6 Seconds (9.4-12.1)
[2021-06-28 08:33] LABS: Anisocytosis 1+ (Not Present); Hypochromasia Present (Not Present); Microcytosis Present (Not Present); Platelet Estimate Normal (Normal); Reactive Lymphocytes Present (Not Present)
[2021-06-28 08:46] LABS: Troponin I 0.04 ng/mL (< 0.04)
[2021-06-28 08:59] LABS: Calcium 10.3 mg/dL (8.6-10.3); Potassium 3.7 mEq/L (3.5-5.1)
[2021-06-28] MEDS ORDERED: Aspirin 81 MG TAB.CHEW PO STA (09:13)
[2021-06-28] MEDS ORDERED: Ondansetron 4 MG/2 ML VIAL IVP PRN (12:07)
[2021-06-28] MEDS ORDERED: Naloxone 0.4 MG/ML INJ IVP PRN (12:07)
[2021-06-28] MEDS ORDERED: Melatonin 3 MG TABLET PO PRN (12:07)
[2021-06-28] MEDS ORDERED: Dextrose Gel 15 GM/37.5 ML TUBE PO PRN ×2 (12:14)
[2021-06-28] MEDS ORDERED: D5% in 0.9% NACL 1,000 ML IVC SCH ×2 (12:30→14:55)
[2021-06-28 15:10] LABS: Estimated Average Glucose 295 mg/dl; Hemoglobin A1C 11.9 %
[2021-06-28] MEDS: Insulin LISPRO 300 UNITS/3 ML VIAL SUBQ SCH ×2 (17:52→21:29)
[2021-06-28] MEDS ORDERED: Insulin DETEMIR 100 UNIT/ML X5UNITS SUBQ SCH (21:00)
[2021-06-28 22:20] LABS: Bilirubin,Urine Negative (Negative); Blood,Urine Negative (Negative); Clarity,Urine Clear (Clear); Color,Urine Light-Yellow (Yellow); Glucose,Urine (UA) >=1000 mg/dL (Normal); Ketones,Urine Negative (Negative); Leukocyte Esterase,Urine Negative (Negative); Mucus,Urine Few per lpf (None-Few); Nitrite,Urine Negative (Negative); PH,Urine 7.5 pH Units (5.0-8.0); Protein,Urine 50 mg/dL (Neg-Trace); Specific Gravity,Urine 1.014 (1.010-1.025); Squamous Epithelial Cell,Urine Few per hpf (None-Few); Urobilinogen,Urine Normal (Normal); WBC,Urine 0-3 per hpf (0-3)
[2021-06-28] MEDS: NIFEdipine XL (24 HR) 30 MG TAB.ER.24 PO SCH (23:05)
[2021-06-28] MEDS: Apixaban 5 MG TABLET PO SCH (23:06)
[2021-06-28] MEDS: Topiramate 25 MG TABLET PO SCH (23:06)
[2021-06-29 03:02] LABS: Basophils % 0.4 %; Eosinophils # 0.1 K/mcL (0.0-0.6); Eosinophils % 1.6 %; Hematocrit 47.9 % (35.3-44.9); Hemoglobin 14.2 g/dL (11.5-15.4); Immature Granulocytes % 0.3 % (0-4); Lymphocytes # 1.3 K/mcL (0.6-4.6); Lymphocytes % 17.3 %; Mean Corpuscular HGB Conc 29.6 g/dL (31.6-35.5); Mean Corpuscular Hemoglobin 21.5 pg (28.0-33.3); Mean Corpuscular Volume 72.4 fL (83.0-100.0); Monocytes # 0.7 K/mcL (0.0-1.3); Monocytes % 9.6 %; Neutrophils # 5.4 K/mcL (1.6-8.9); Platelet Count 152 K/mcL (140-400); Red Blood Count 6.62 M/mcL (3.82-4.97); Red Cell Distribution Width 30.5 % (11.5-14.5); Segmented Neutrophils % 70.8 %; White Blood Count 7.6 K/mcL (4.3-11.1)
[2021-06-29 03:13] LABS: Albumin 3.3 g/dL (3.5-5.7); Albumin/Globulin Ratio 1.2 (1.1-2.2); Bilirubin,Total 0.3 mg/dL (0.3-1.0); Globulin 2.7 g/dL (2.4-3.5); Potassium 4.3 mEq/L (3.5-5.1)
[2021-06-29 03:48] LABS: Anisocytosis 1+ (Not Present); Platelet Estimate Normal (Normal); Poikilocytosis 1+ (Not Present)
[2021-06-29] MEDS: Insulin LISPRO 300 UNITS/3 ML VIAL SUBQ SCH ×4 (07:48→21:47)
[2021-06-29] MEDS: Topiramate 25 MG TABLET PO SCH ×2 (07:49→21:46)
[2021-06-29] MEDS: Apixaban 5 MG TABLET PO SCH ×2 (07:49→21:45)
[2021-06-29] MEDS: carvediloL 6.25 MG TABLET PO SCH ×2 (07:49→16:26)
[2021-06-29] MEDS: Aspirin 81 MG TAB.CHEW PO SCH (07:49)
[2021-06-29] MEDS: NIFEdipine XL (24 HR) 30 MG TAB.ER.24 PO SCH (07:49)
[2021-06-29] MEDS ORDERED: Insulin DETEMIR 100 UNIT/ML X5UNITS SUBQ SCH (09:00)
[2021-06-29] MEDS: Insulin DETEMIR 100 UNIT/ML X5UNITS SUBQ SCH ×2 (11:08→21:47)
[2021-06-29] MEDS: Acetaminophen 325 MG TABLET PO PRN (15:01)
[2021-06-30 02:21] LABS: Hematocrit 47.1 % (35.3-44.9); Mean Corpuscular HGB Conc 29.7 g/dL (31.6-35.5); Mean Corpuscular Hemoglobin 21.6 pg (28.0-33.3); Mean Corpuscular Volume 72.8 fL (83.0-100.0); Platelet Count 173 K/mcL (140-400); Red Blood Count 6.47 M/mcL (3.82-4.97); Red Cell Distribution Width 30.4 % (11.5-14.5); White Blood Count 7.9 K/mcL (4.3-11.1)
[2021-06-30 03:17] LABS: BUN/Creatinine Ratio 49 (6-26); Blood Urea Nitrogen 48 mg/dL (6-20); Calcium 9.2 mg/dL (8.6-10.3); Carbon Dioxide 35 mEq/L (23-29); Chloride 100 mEq/L (98-107); Glucose 131 mg/dL (70-105); Osmolality,Calculated 300 (280-300); Sodium 138 mEq/L (136-145); eGFR For African Americans > 60 (> 60); eGFR For Non-African Americans 59 (> 60)
[2021-06-30] MEDS: Topiramate 25 MG TABLET PO SCH ×2 (09:21→21:37)
[2021-06-30] MEDS: Aspirin 81 MG TAB.CHEW PO SCH (09:21)
[2021-06-30] MEDS: carvediloL 6.25 MG TABLET PO SCH ×2 (09:21→18:17)
[2021-06-30] MEDS: NIFEdipine XL (24 HR) 30 MG TAB.ER.24 PO SCH (09:21)
[2021-06-30] MEDS: Insulin DETEMIR 100 UNIT/ML X5UNITS SUBQ SCH (09:21)
[2021-06-30] MEDS: Apixaban 5 MG TABLET PO SCH ×2 (09:21→21:37)
[2021-06-30] MEDS: Acetaminophen 325 MG TABLET PO PRN (23:51)
[2021-07-01 05:24] LABS: BUN/Creatinine Ratio 44 (6-26); Blood Urea Nitrogen 45 mg/dL (6-20); Calcium 9.1 mg/dL (8.6-10.3); Carbon Dioxide 29 mEq/L (23-29); Chloride 102 mEq/L (98-107); Glucose 263 mg/dL (70-105); Osmolality,Calculated 303 (280-300); Potassium 4.5 mEq/L (3.5-5.1); Sodium 136 mEq/L (136-145); eGFR For African Americans > 60 (> 60); eGFR For Non-African Americans 55 (> 60)
[2021-07-01 05:27] LABS: Hematocrit 47.8 % (35.3-44.9); Hemoglobin 14.1 g/dL (11.5-15.4); Mean Corpuscular HGB Conc 29.5 g/dL (31.6-35.5); Mean Corpuscular Hemoglobin 21.9 pg (28.0-33.3); Mean Corpuscular Volume 74.2 fL (83.0-100.0); Platelet Count 139 K/mcL (140-400); Red Blood Count 6.44 M/mcL (3.82-4.97); Red Cell Distribution Width 30.5 % (11.5-14.5); White Blood Count 7.6 K/mcL (4.3-11.1)
[2021-07-01] MEDS: NIFEdipine XL (24 HR) 30 MG TAB.ER.24 PO SCH (09:48)
[2021-07-01] MEDS: Apixaban 5 MG TABLET PO SCH ×2 (09:48→21:51)
[2021-07-01] MEDS: Topiramate 25 MG TABLET PO SCH ×2 (09:48→21:52)
[2021-07-01] MEDS: Aspirin 81 MG TAB.CHEW PO SCH (09:48)
[2021-07-01] MEDS: Insulin DETEMIR 100 UNIT/ML X5UNITS SUBQ SCH ×2 (09:49→21:52)
[2021-07-01] MEDS: carvediloL 6.25 MG TABLET PO SCH ×2 (09:49→16:40)
[2021-07-01] MEDS ORDERED: Insulin LISPRO 300 UNITS/3 ML VIAL SUBQ SCH ×2 (11:30→21:00)
[2021-07-01] MEDS: Insulin LISPRO 300 UNITS/3 ML VIAL SUBQ SCH (16:40)
[2021-07-02 04:11] LABS: Mean Corpuscular Hemoglobin 21.4 pg (28.0-33.3); Platelet Count 131 K/mcL (140-400); Red Cell Distribution Width 30.8 % (11.5-14.5)
[2021-07-02 04:13] LABS: Hematocrit 48.9 % (35.3-44.9); Immature Platelets 3.9 % (1.1-6.1); Mean Corpuscular HGB Conc 28.6 g/dL (31.6-35.5); Mean Corpuscular Volume 74.7 fL (83.0-100.0); Red Blood Count 6.55 M/mcL (3.82-4.97); White Blood Count 7.4 K/mcL (4.3-11.1)
[2021-07-02 04:32] LABS: BUN/Creatinine Ratio 49 (6-26); Blood Urea Nitrogen 49 mg/dL (6-20); Calcium 9.4 mg/dL (8.6-10.3); Carbon Dioxide 27 mEq/L (23-29); Chloride 104 mEq/L (98-107); Glucose 165 mg/dL (70-105); Osmolality,Calculated 303 (280-300); Potassium 4.1 mEq/L (3.5-5.1); Sodium 138 mEq/L (136-145); eGFR For African Americans > 60 (> 60); eGFR For Non-African Americans 58 (> 60)
[2021-07-02] MEDS: Aspirin 81 MG TAB.CHEW PO SCH (07:18)
[2021-07-02] MEDS: Apixaban 5 MG TABLET PO SCH ×2 (07:18→22:03)
[2021-07-02] MEDS: Topiramate 25 MG TABLET PO SCH ×2 (07:18→22:03)
[2021-07-02] MEDS: carvediloL 6.25 MG TABLET PO SCH ×2 (07:18→16:52)
[2021-07-02] MEDS: hydrALAZINE 10 MG TABLET PO PRN (07:19)
[2021-07-02] MEDS: Insulin LISPRO 300 UNITS/3 ML VIAL SUBQ SCH ×3 (07:19→16:52)
[2021-07-02] MEDS: Insulin DETEMIR 100 UNIT/ML X5UNITS SUBQ SCH ×2 (07:19→22:03)
[2021-07-02] MEDS: NIFEdipine XL (24 HR) 30 MG TAB.ER.24 PO SCH (07:19)
[2021-07-03 02:33] LABS: Red Cell Distribution Width 30.7 % (11.5-14.5)
[2021-07-03 02:35] LABS: Hematocrit 46.9 % (35.3-44.9); Hemoglobin 13.6 g/dL (11.5-15.4); Immature Platelets 4.9 % (1.1-6.1); Mean Corpuscular Hemoglobin 21.6 pg (28.0-33.3); Mean Corpuscular Volume 74.6 fL (83.0-100.0); Platelet Count 105 K/mcL (140-400); Red Blood Count 6.29 M/mcL (3.82-4.97); White Blood Count 7.8 K/mcL (4.3-11.1)
[2021-07-03 02:58] LABS: BUN/Creatinine Ratio 55 (6-26); Blood Urea Nitrogen 57 mg/dL (6-20); Calcium 9.1 mg/dL (8.6-10.3); Carbon Dioxide 20 mEq/L (23-29); Chloride 108 mEq/L (98-107); Glucose 201 mg/dL (70-105); Osmolality,Calculated 302 (280-300); Potassium 4.2 mEq/L (3.5-5.1); Sodium 135 mEq/L (136-145); eGFR For African Americans > 60 (> 60); eGFR For Non-African Americans 55 (> 60)
[2021-07-03] MEDS: Insulin LISPRO 300 UNITS/3 ML VIAL SUBQ SCH ×3 (07:58→16:42)
[2021-07-03] MEDS: Topiramate 25 MG TABLET PO SCH ×2 (10:04→21:42)
[2021-07-03] MEDS: Apixaban 5 MG TABLET PO SCH ×2 (10:04→21:42)
[2021-07-03] MEDS: Insulin DETEMIR 100 UNIT/ML X5UNITS SUBQ SCH ×2 (10:04→21:42)
[2021-07-03] MEDS: NIFEdipine XL (24 HR) 30 MG TAB.ER.24 PO SCH (10:04)
[2021-07-03] MEDS: Aspirin 81 MG TAB.CHEW PO SCH (10:04)
[2021-07-03] MEDS: carvediloL 6.25 MG TABLET PO SCH ×2 (10:04→16:42)
[2021-07-04] MEDS: hydrALAZINE 10 MG TABLET PO PRN ×2 (00:13→10:32)
[2021-07-04 03:35] VITALS: O2SAT 95
[2021-07-04] MEDS ORDERED: *HR* Labetalol 20 MG/4 ML SYRINGE IVP ONE (03:40)
[2021-07-04 06:39] VITALS: TEMP 98.2
[2021-07-04] MEDS: Insulin LISPRO 300 UNITS/3 ML VIAL SUBQ SCH ×2 (10:10→12:33)
[2021-07-04] MEDS: NIFEdipine XL (24 HR) 30 MG TAB.ER.24 PO SCH (10:17)
[2021-07-04] MEDS: Topiramate 25 MG TABLET PO SCH (10:17)
[2021-07-04] MEDS: Apixaban 5 MG TABLET PO SCH (10:18)
[2021-07-04] MEDS: Aspirin 81 MG TAB.CHEW PO SCH (10:18)
[2021-07-04] MEDS: carvediloL 6.25 MG TABLET PO SCH (10:18)
[2021-07-04 10:32] VITALS: BP 172/84; PULSE 59
[2021-07-04] MEDS: Insulin DETEMIR 100 UNIT/ML X5UNITS SUBQ SCH (10:32)
[2021-07-04 13:00] LABS: Adenovirus Not Detected (Not Detect); Bordetella Pertussis Not Detected (Not Detect); Chlamydophila pneumoniae Not Detected (Not Detect); Coronavirus 229E Not Detected (Not Detect); Coronavirus HKU1 Not Detected (Not Detect); Coronavirus NL63 Not Detected (Not Detect); Coronavirus OC43 Not Detected (Not Detect); Human Metapneumovirus Not Detected (Not Detect); Human Rhinovirus/Enterovirus Not Detected (Not Detect); Influenza A Subtype 2009 H1 Not Detected (Not Detect); Influenza B Not Detected (Not Detect); Mycoplasma pneumoniae Not Detected (Not Detect); Parainfluenza Virus 1 Not Detected (Not Detect); Parainfluenza Virus 2 Not Detected (Not Detect); Parainfluenza Virus 3 Not Detected (Not Detect); Parainfluenza Virus 4 Not Detected (Not Detect); Respiratory Syncytial Virus Not Detected (Not Detect); SARS-CoV-2 Not Detected (Not Detect)
== END 2021-07-04 15:41 | disposition other institution (70) ==
LOC: 2ANU 05:09 → EMEROOARM 05:09 → SUATTDRO 11:14 → 2ANU 12:00
PROVIDERS: ADMIT Internal Medicine; ATTEND Internal Medicine

== ENCOUNTER 2021-08-01 21:12 | Observation (INO) ==
[2021-08-01 23:22] LABS: Basophils # 0.1 K/mcL (0.0-0.2); Basophils % 0.4 %; Eosinophils # 0.1 K/mcL (0.0-0.6); Eosinophils % 0.8 %; Hemoglobin 13.9 g/dL (11.5-15.4); Immature Granulocytes % 0.4 % (0-4); Lymphocytes % 8.8 %; Mean Corpuscular HGB Conc 29.6 g/dL (31.6-35.5); Mean Corpuscular Hemoglobin 23.3 pg (28.0-33.3); Mean Corpuscular Volume 78.9 fL (83.0-100.0); Monocytes # 0.8 K/mcL (0.0-1.3); Monocytes % 6.9 %; Neutrophils # 9.4 K/mcL (1.6-8.9); Platelet Count 140 K/mcL (140-400); Red Blood Count 5.96 M/mcL (3.82-4.97); Red Cell Distribution Width 30.5 % (11.5-14.5); Segmented Neutrophils % 82.7 %; White Blood Count 11.3 K/mcL (4.3-11.1)
[2021-08-01 23:36] LABS: Anisocytosis 3+ (Not Present); Hypochromasia Present (Not Present); Macrocytosis Present (Not Present); Microcytosis Present (Not Present); Platelet Estimate Slight Decrease (Normal)
[2021-08-01] MEDS ORDERED: Isovue-370 500 ML BOTTLE IVP ONE (23:40)
[2021-08-01 23:47] LABS: Alanine Aminotransferase 8 Units/L (7-52); Albumin 3.3 g/dL (3.5-5.7); Albumin/Globulin Ratio 1.1 (1.1-2.2); Alkaline Phosphatase 116 Units/L (34-104); Aspartate Amino Transferase 15 Units/L (13-39); BUN/Creatinine Ratio 27 (6-26); Bilirubin,Direct 0.1 mg/dL (0.0-0.2); Bilirubin,Indirect 0.3 mg/dL (0.0-1.0); Bilirubin,Total 0.4 mg/dL (0.3-1.0); Blood Urea Nitrogen 25 mg/dL (6-20); C-Reactive Protein < 5 mg/L (Less than 10); Carbon Dioxide 31 mEq/L (23-29); Chloride 96 mEq/L (98-107); Glucose 336 mg/dL (70-105); Lipase 4 Units/L (11-82); Magnesium 2.1 mg/dL (1.6-2.6); Osmolality,Calculated 300 (280-300); Phosphorous 4.2 mg/dL (2.7-4.5); Potassium 3.7 mEq/L (3.5-5.1); Sodium 136 mEq/L (136-145); Total Protein 6.3 g/dL (6.4-8.9); Troponin I < 0.03 ng/mL (< 0.04); eGFR For African Americans > 60 (> 60); eGFR For Non-African Americans > 60 (> 60)
[2021-08-02 00:36] LABS: Bacteria,Urine Few per hpf (None-Few); Bilirubin,Urine Negative (Negative); Blood,Urine Small (Negative); Clarity,Urine Clear (Clear); Color,Urine Yellow (Yellow); Glucose,Urine (UA) >=1000 mg/dL (Normal); Hyaline Casts,Urine Many per lpf (None Seen); Ketones,Urine Negative (Negative); Leukocyte Esterase,Urine Negative (Negative); Mucus,Urine Few per lpf (None-Few); Nitrite,Urine Negative (Negative); Protein,Urine >=300 mg/dL (Neg-Trace); Squamous Epithelial Cell,Urine Few per hpf (None-Few); Urobilinogen,Urine Normal (Normal); WBC,Urine 0-3 per hpf (0-3)
[2021-08-02 02:46] LABS: VBG HCO3 30 mEq/L (21-27); VBG PCO2 60 mmHg (41-51); VBG PH 7.31 pH Units (7.32-7.42); VBG PO2 64 mmHg (25-50)
[2021-08-02] MEDS ORDERED: Albuterol 2.5 MG/3 ML NEBULIZER IH ONE (03:24)
[2021-08-02] MEDS ORDERED: Ipratropium/Albuterol Neb 3 ML IH ONE (03:41)
[2021-08-02] MEDS ORDERED: Piperacillin/Tazobactam 3.375 GM in 0.9 % Sodium Chloride Mini Bag 100 ML IVPB ONE (04:55)
[2021-08-02] MEDS ORDERED: Albuterol 2.5 MG/3 ML NEBULIZER IH PRN (05:28)
[2021-08-02] MEDS ORDERED: Ondansetron 4 MG/2 ML VIAL IVP PRN ×2 (05:28→17:53)
[2021-08-02] MEDS ORDERED: *HR* Promethazine 25 MG/ML VIAL IM PRN (05:28)
[2021-08-02] MEDS ORDERED: Naloxone 0.4 MG/ML INJ IVP PRN (05:28)
[2021-08-02] MEDS ORDERED: Dextrose Gel 15 GM/37.5 ML TUBE PO PRN ×2 (05:54)
[2021-08-02] MEDS ORDERED: D5% in Water 1,000 ML IVC PRN (05:54)
[2021-08-02] MEDS ORDERED: *HR* Dextrose 50 % in Water (Syg) 50 ML SYRINGE IVP PRN (05:54)
[2021-08-02] MEDS: 0.9 % Sodium Chloride 1,000 ML IVC SCH ×2 (07:56→22:55)
[2021-08-02] MEDS: Apixaban 5 MG TABLET PO SCH ×2 (07:57→22:56)
[2021-08-02] MEDS: Aspirin Enteric Coated 81 MG Tablet PO SCH (07:57)
[2021-08-02] MEDS: carvediloL 6.25 MG TABLET PO SCH ×2 (07:57→15:34)
[2021-08-02] MEDS: Cholecalciferol (D-3) 1,000 UNIT (25MCG) TABLET PO SCH (07:57)
[2021-08-02] MEDS: Pregabalin 50 MG CAPSULE PO SCH ×2 (07:58→22:56)
[2021-08-02] MEDS ORDERED: Bumetanide 1 MG TABLET PO SCH (09:00)
[2021-08-02] MEDS: Insulin LISPRO 300 UNITS/3 ML VIAL SUBQ SCH ×3 (10:12→17:08)
[2021-08-02] MEDS ORDERED: Piperacillin/Tazobactam 3.375 GM in 0.9 % Sodium Chloride Mini Bag 100 ML IVPB SCH (12:00)
[2021-08-02] MEDS: Piperacillin/Tazobactam 3.375 GM in 0.9 % Sodium Chloride Mini Bag 100 ML IVPB SCH ×2 (15:33→22:56)
[2021-08-02] MEDS: Topiramate 25 MG TABLET PO SCH ×2 (15:34→22:56)
[2021-08-02] MEDS ORDERED: Insulin LISPRO 300 UNITS/3 ML VIAL SUBQ SCH (21:00)
[2021-08-03 06:36] LABS: Hematocrit 42.3 % (35.3-44.9); Hemoglobin 12.4 g/dL (11.5-15.4); Immature Platelets 5.5 % (1.1-6.1); Mean Corpuscular HGB Conc 29.3 g/dL (31.6-35.5); Mean Corpuscular Hemoglobin 23.6 pg (28.0-33.3); Mean Corpuscular Volume 80.4 fL (83.0-100.0); Platelet Count 172 K/mcL (140-400); Red Blood Count 5.26 M/mcL (3.82-4.97); White Blood Count 9.6 K/mcL (4.3-11.1)
[2021-08-03 06:48] LABS: Albumin 2.9 g/dL (3.5-5.7); Albumin/Globulin Ratio 1.3 (1.1-2.2); Bilirubin,Total 0.3 mg/dL (0.3-1.0); Calcium 8.2 mg/dL (8.6-10.3); Globulin 2.2 g/dL (2.4-3.5); Potassium 4.3 mEq/L (3.5-5.1); Total Protein 5.1 g/dL (6.4-8.9)
[2021-08-03] MEDS ORDERED: 0.9 % Sodium Chloride 1,000 ML IVC SCH (07:45)
[2021-08-03] MEDS: Piperacillin/Tazobactam 3.375 GM in 0.9 % Sodium Chloride Mini Bag 100 ML IVPB SCH (09:22)
[2021-08-03] MEDS: Pregabalin 50 MG CAPSULE PO SCH (09:23)
[2021-08-03] MEDS: Cholecalciferol (D-3) 1,000 UNIT (25MCG) TABLET PO SCH (09:23)
[2021-08-03] MEDS: Topiramate 25 MG TABLET PO SCH (09:23)
[2021-08-03] MEDS: carvediloL 6.25 MG TABLET PO SCH (09:24)
[2021-08-03] MEDS: Apixaban 5 MG TABLET PO SCH (09:24)
[2021-08-03] MEDS: Aspirin Enteric Coated 81 MG Tablet PO SCH (09:24)
[2021-08-03] MEDS: Insulin LISPRO 300 UNITS/3 ML VIAL SUBQ SCH ×2 (09:25→12:20)
[2021-08-03 10:41] VITALS: BP 122/73; PULSE 85; TEMP 98.3; O2SAT 95
[2021-08-03 13:17] LABS: Monocytes # 0.2 K/mcL (0.0-1.3); Neutrophils # 8.5 K/mcL (1.6-8.9); Platelet Estimate Normal (Normal); Toxic Granulation Present (Not Present)
[2021-08-03 13:18] LABS: Anisocytosis 3+ (Not Present)
== END 2021-08-03 19:41 | disposition home health service (06) ==
LOC: EMEROOARM 21:12 → 3ANU 21:12 → SUATTDRO 08-02 05:32 → 3ANU 08-02 06:19
PROVIDERS: ADMIT Family Medicine; ATTEND Internal Medicine

== ENCOUNTER 2021-08-30 11:40 | Inpatient (IN) ==
[2021-08-30] MEDS ORDERED: 0.9 % Sodium Chloride 1,000 ML IVC ONE (11:53)
[2021-08-30] MEDS ORDERED: Isovue-370 500 ML BOTTLE IVP ONE (11:55)
[2021-08-30 12:52] LABS: Bacteria,Urine Few per hpf (None-Few); Bilirubin,Urine Negative (Negative); Blood,Urine Negative (Negative); Clarity,Urine Clear (Clear); Color,Urine Colorless (Yellow); Glucose,Urine (UA) >=1000 mg/dL (Normal); Hyaline Casts,Urine Many per lpf (None Seen); Ketones,Urine Negative (Negative); Leukocyte Esterase,Urine Negative (Negative); Mucus,Urine Few per lpf (None-Few); Nitrite,Urine Negative (Negative); Protein,Urine 70 mg/dL (Neg-Trace); RBC,Urine 0-3 per hpf (0-3); Specific Gravity,Urine 1.007 (1.010-1.025); Squamous Epithelial Cell,Urine Few per hpf (None-Few); Urobilinogen,Urine Normal (Normal); WBC,Urine 0-3 per hpf (0-3)
[2021-08-30 13:09] LABS: Amphetamine Screen,Urine Negative ng/mL (Cutoff=1000); Barbiturate Screen,Urine Negative ng/mL (Cutoff=200)
[2021-08-30 13:10] LABS: Benzodiazepines Screen,Urine Negative ng/mL (Cutoff=300); Cannabinoid Screen,Urine Negative ng/mL (Cutoff = 50); Cocaine Screen,Urine Negative ng/mL (Cutoff= 300); Opiate Screen,Urine Negative ng/mL (Cutoff=300); Phencyclidine Screen,Urine Negative ng/mL (Cutoff=25)
[2021-08-30 13:11] LABS: Influenza A PCR Negative (Negative); Influenza B PCR Negative (Negative); Resp. Syncytial Virus PCR Negative (Negative)
[2021-08-30 13:20] LABS: INR 1.2; Prothrombin Time 12.9 Seconds (9.4-12.1)
[2021-08-30 13:23] LABS: Activated Partial Thrombo Time 32.4 Seconds (26.0-36.0)
[2021-08-30 13:46] LABS: SARS-CoV-2 by PCR (In House) Negative (Negative)
[2021-08-30 14:36] LABS: ABG Base Excess 4 mEq/L (-2 to 3); ABG HCO3 31 mEq/L (21-27); ABG Oxygen Saturation 93 % (95-98); ABG PCO2 58 mmHg (35-45); ABG PH 7.34 pH Units (7.32-7.45); ABG PO2 71 mmHg (85-104); ABG TCO2 33 mEq/L (20-26)
[2021-08-30 14:39] LABS: Basophils % 0.3 %; Eosinophils % 0.1 %; Mean Corpuscular HGB Conc 29.5 g/dL (31.6-35.5); Mean Corpuscular Hemoglobin 21.4 pg (28.0-33.3); Mean Corpuscular Volume 72.5 fL (83.0-100.0); Platelet Count 214 K/mcL (140-400)
[2021-08-30 14:41] LABS: Hematocrit 46.4 % (35.3-44.9); Hemoglobin 13.7 g/dL (11.5-15.4); Immature Granulocytes % 0.5 % (0-4); Immature Platelets 5.7 % (1.1-6.1); Lymphocytes # 1.2 K/mcL (0.6-4.6); Lymphocytes % 10.1 %; Monocytes # 0.9 K/mcL (0.0-1.3); Monocytes % 7.3 %; Red Cell Distribution Width 27.7 % (11.5-14.5); Segmented Neutrophils % 81.7 %; White Blood Count 11.6 K/mcL (4.3-11.1)
[2021-08-30 14:42] LABS: Neutrophils # 9.5 K/mcL (1.6-8.9)
[2021-08-30 15:11] LABS: Anisocytosis 3+ (Not Present)
[2021-08-30 15:12] LABS: Hypochromasia Present (Not Present); Microcytosis Present (Not Present); Platelet Estimate Normal (Normal)
[2021-08-30 16:26] LABS: Troponin I 0.44 ng/mL (< 0.04)
[2021-08-30 16:27] LABS: Alanine Aminotransferase 9 Units/L (7-52); Albumin/Globulin Ratio 1.2 (1.1-2.2); Alkaline Phosphatase 103 Units/L (34-104); Aspartate Amino Transferase 24 Units/L (13-39); BUN/Creatinine Ratio 25 (6-26); Bilirubin,Direct 0.1 mg/dL (0.0-0.2); Bilirubin,Indirect 0.2 mg/dL (0.0-1.0); Bilirubin,Total 0.3 mg/dL (0.3-1.0); Blood Urea Nitrogen 40 mg/dL (6-20); Calcium 8.2 mg/dL (8.6-10.3); Carbon Dioxide 28 mEq/L (23-29); Chloride 97 mEq/L (98-107); Creatine Kinase 82 Units/L (30-223); Ethanol < 10 mg/dL (Less than 10); Globulin 2.5 g/dL (2.4-3.5); Glucose 237 mg/dL (70-105); Osmolality,Calculated 301 (280-300); Potassium 3.8 mEq/L (3.5-5.1); Sodium 137 mEq/L (136-145); Total Protein 5.5 g/dL (6.4-8.9); eGFR For African Americans 41 (> 60); eGFR For Non-African Americans 34 (> 60)
[2021-08-30] MEDS ORDERED: Aspirin 325 MG TABLET PO ONE (17:24)
[2021-08-30] MEDS ORDERED: Melatonin 3 MG TABLET PO PRN (18:23)
[2021-08-30] MEDS ORDERED: Naloxone 0.4 MG/ML INJ IVP PRN (18:23)
[2021-08-30] MEDS ORDERED: D5% in Water 1,000 ML IVC PRN (18:31)
[2021-08-30] MEDS ORDERED: *HR* Dextrose 50 % in Water (Syg) 50 ML SYRINGE IVP PRN (18:31)
[2021-08-30] MEDS ORDERED: Dextrose Gel 15 GM/37.5 ML TUBE PO PRN ×2 (18:31)
[2021-08-30] MEDS ORDERED: Furosemide 20 MG/2 ML VIAL IVP ONE (20:37)
[2021-08-30] MEDS: Ipratropium/Albuterol Neb 3 ML IH SCH (21:00)
[2021-08-30] MEDS: Budesonide/Formoterol 160/4.5 1 PUFF INH IH SCH (21:01)
[2021-08-30] MEDS: Insulin LISPRO 300 UNITS/3 ML VIAL SUBQ SCH (22:28)
[2021-08-30] MEDS: Insulin DETEMIR 100 UNIT/ML X5UNITS SUBQ SCH (22:29)
[2021-08-30] MEDS: Apixaban 5 MG TABLET PO SCH (22:29)
[2021-08-31] MEDS: MethylPREDNISolone 40 MG/ML VIAL IVP SCH ×3 (02:16→17:09)
[2021-08-31 03:55] LABS: Immature Granulocytes % 0.3 % (0-4)
[2021-08-31] MEDS: Ipratropium/Albuterol Neb 3 ML IH SCH ×4 (03:55→20:30)
[2021-08-31 03:56] LABS: Basophils # 0.1 K/mcL (0.0-0.2); Basophils % 0.5 %; Eosinophils # 0.1 K/mcL (0.0-0.6); Eosinophils % 0.8 %; Hemoglobin 13.9 g/dL (11.5-15.4); Immature Platelets 7.1 % (1.1-6.1); Lymphocytes # 2.1 K/mcL (0.6-4.6); Lymphocytes % 20.7 %; Mean Corpuscular Hemoglobin 21.4 pg (28.0-33.3); Mean Corpuscular Volume 73.7 fL (83.0-100.0); Monocytes # 1.1 K/mcL (0.0-1.3); Monocytes % 10.8 %; Neutrophils # 6.6 K/mcL (1.6-8.9); Platelet Count 219 K/mcL (140-400); Red Blood Count 6.51 M/mcL (3.82-4.97); Red Cell Distribution Width 27.9 % (11.5-14.5); Segmented Neutrophils % 66.9 %; White Blood Count 9.9 K/mcL (4.3-11.1)
[2021-08-31 04:06] LABS: Calcium 8.7 mg/dL (8.6-10.3); Magnesium 2.2 mg/dL (1.6-2.6); Potassium 3.4 mEq/L (3.5-5.1)
[2021-08-31 04:40] LABS: Hypochromasia Present (Not Present); Poikilocytosis 1+ (Not Present); Tear Drop Cells 1+ (Not Present)
[2021-08-31 04:41] LABS: Anisocytosis 3+ (Not Present); Microcytosis Present (Not Present); Platelet Estimate Normal (Normal)
[2021-08-31] MEDS: Budesonide/Formoterol 160/4.5 1 PUFF INH IH SCH ×2 (07:31→20:30)
[2021-08-31] MEDS: Apixaban 5 MG TABLET PO SCH ×2 (08:33→20:33)
[2021-08-31] MEDS: carvediloL 6.25 MG TABLET PO SCH ×2 (08:33→16:55)
[2021-08-31] MEDS: Furosemide 40 MG/4 ML VIAL IVP SCH (08:34)
[2021-08-31] MEDS: Aspirin 81 MG TAB.CHEW PO SCH (08:34)
[2021-08-31] MEDS: Insulin DETEMIR 100 UNIT/ML X5UNITS SUBQ SCH ×2 (08:35→20:33)
[2021-08-31] MEDS: Insulin LISPRO 300 UNITS/3 ML VIAL SUBQ SCH ×4 (08:38→20:35)
[2021-08-31] MEDS: Pregabalin 50 MG CAPSULE PO SCH (20:33)
[2021-08-31] MEDS: Topiramate 25 MG TABLET PO SCH (20:33)
[2021-09-01 01:02] LABS: Basophils % 0.3 %; Eosinophils % 0.2 %; Hematocrit 45.4 % (35.3-44.9); Hemoglobin 13.4 g/dL (11.5-15.4); Immature Granulocytes % 0.3 % (0-4); Immature Platelets 6.3 % (1.1-6.1); Lymphocytes # 1.1 K/mcL (0.6-4.6); Lymphocytes % 11.7 %; Mean Corpuscular HGB Conc 29.5 g/dL (31.6-35.5); Mean Corpuscular Hemoglobin 21.2 pg (28.0-33.3); Mean Corpuscular Volume 71.8 fL (83.0-100.0); Monocytes # 1.3 K/mcL (0.0-1.3); Monocytes % 14.7 %; Neutrophils # 6.6 K/mcL (1.6-8.9); Platelet Count 208 K/mcL (140-400); Red Blood Count 6.32 M/mcL (3.82-4.97); Red Cell Distribution Width 27.3 % (11.5-14.5); Segmented Neutrophils % 72.8 %; White Blood Count 9.1 K/mcL (4.3-11.1)
[2021-09-01 01:17] LABS: Calcium 8.7 mg/dL (8.6-10.3); Potassium 3.8 mEq/L (3.5-5.1)
[2021-09-01 02:06] LABS: Anisocytosis 2+ (Not Present); Microcytosis Present (Not Present); Platelet Estimate Normal (Normal)
[2021-09-01] MEDS: Ipratropium/Albuterol Neb 3 ML IH SCH ×3 (04:00→15:11)
[2021-09-01] MEDS: Budesonide/Formoterol 160/4.5 1 PUFF INH IH SCH (08:07)
[2021-09-01] MEDS: NIFEdipine XL (24 HR) 30 MG TAB.ER.24 PO SCH (08:52)
[2021-09-01] MEDS: predniSONE 10 MG TABLET PO SCH (08:52)
[2021-09-01] MEDS: carvediloL 6.25 MG TABLET PO SCH ×2 (08:52→16:43)
[2021-09-01] MEDS: Pregabalin 50 MG CAPSULE PO SCH ×2 (08:53→20:12)
[2021-09-01] MEDS: Aspirin 81 MG TAB.CHEW PO SCH (08:53)
[2021-09-01] MEDS: Apixaban 5 MG TABLET PO SCH ×2 (08:53→20:12)
[2021-09-01] MEDS: Insulin LISPRO 300 UNITS/3 ML VIAL SUBQ SCH ×4 (08:56→20:12)
[2021-09-01] MEDS: Insulin DETEMIR 100 UNIT/ML X5UNITS SUBQ SCH ×2 (08:56→20:15)
[2021-09-01] MEDS: Topiramate 25 MG TABLET PO SCH (08:56)
[2021-09-01] MEDS ORDERED: Gadolinium Contrast Agent (WT Based) IV PRN (13:18)
[2021-09-01] MEDS ORDERED: Ipratropium/Albuterol Neb 3 ML IH PRN (17:10)
[2021-09-02 03:22] LABS: BUN/Creatinine Ratio 43 (6-26); Blood Urea Nitrogen 44 mg/dL (6-20); Calcium 9.3 mg/dL (8.6-10.3); Carbon Dioxide 32 mEq/L (23-29); Chloride 95 mEq/L (98-107); Glucose 307 mg/dL (70-105); Osmolality,Calculated 299 (280-300); Potassium 4.1 mEq/L (3.5-5.1); Sodium 133 mEq/L (136-145); eGFR For African Americans > 60 (> 60); eGFR For Non-African Americans 55 (> 60)
[2021-09-02] MEDS: Pregabalin 50 MG CAPSULE PO SCH ×2 (08:35→20:20)
[2021-09-02] MEDS: Aspirin 81 MG TAB.CHEW PO SCH (08:35)
[2021-09-02] MEDS: NIFEdipine XL (24 HR) 30 MG TAB.ER.24 PO SCH (08:35)
[2021-09-02] MEDS: carvediloL 6.25 MG TABLET PO SCH ×2 (08:35→16:40)
[2021-09-02] MEDS: predniSONE 10 MG TABLET PO SCH (08:35)
[2021-09-02] MEDS: Apixaban 5 MG TABLET PO SCH ×2 (08:35→20:20)
[2021-09-02] MEDS: Insulin DETEMIR 100 UNIT/ML X5UNITS SUBQ SCH ×2 (08:36→20:20)
[2021-09-02] MEDS: Insulin LISPRO 300 UNITS/3 ML VIAL SUBQ SCH ×4 (08:36→20:20)
[2021-09-02] MEDS: Furosemide 40 MG/4 ML VIAL IVP SCH (08:36)
[2021-09-02 09:26] LABS: Bilirubin,Urine Negative (Negative); Blood,Urine Small (Negative); Clarity,Urine Clear (Clear); Color,Urine Colorless (Yellow); Glucose,Urine (UA) >=1000 mg/dL (Normal); Ketones,Urine Negative (Negative); Leukocyte Esterase,Urine Negative (Negative); Nitrite,Urine Negative (Negative); Protein,Urine 100 mg/dL (Neg-Trace); Specific Gravity,Urine 1.009 (1.010-1.025); Urobilinogen,Urine Normal (Normal); WBC,Urine 0-3 per hpf (0-3)
[2021-09-02] MEDS ORDERED: Acetaminophen 325 MG TABLET PO PRN (17:00)
[2021-09-02] MEDS ORDERED: Clotrimazole Vag CRM 45 GM TUBE VG SCH (21:00)
[2021-09-03 02:07] LABS: BUN/Creatinine Ratio 36 (6-26); Blood Urea Nitrogen 40 mg/dL (6-20); Carbon Dioxide 31 mEq/L (23-29); Chloride 97 mEq/L (98-107); Glucose 240 mg/dL (70-105); Osmolality,Calculated 296 (280-300); Potassium 4.4 mEq/L (3.5-5.1); Sodium 134 mEq/L (136-145); eGFR For African Americans > 60 (> 60); eGFR For Non-African Americans 51 (> 60)
[2021-09-03] MEDS: Insulin LISPRO 300 UNITS/3 ML VIAL SUBQ SCH ×4 (08:40→20:31)
[2021-09-03] MEDS: Aspirin 81 MG TAB.CHEW PO SCH (08:46)
[2021-09-03] MEDS: predniSONE 10 MG TABLET PO SCH (08:46)
[2021-09-03] MEDS: NIFEdipine XL (24 HR) 30 MG TAB.ER.24 PO SCH (08:46)
[2021-09-03] MEDS: carvediloL 6.25 MG TABLET PO SCH ×2 (08:46→17:01)
[2021-09-03] MEDS: Furosemide 40 MG TABLET PO SCH (08:46)
[2021-09-03] MEDS: Pregabalin 50 MG CAPSULE PO SCH ×2 (08:47→20:31)
[2021-09-03] MEDS: Apixaban 5 MG TABLET PO SCH ×2 (08:47→20:30)
[2021-09-03] MEDS: Insulin DETEMIR 100 UNIT/ML X5UNITS SUBQ SCH ×2 (08:48→20:31)
[2021-09-04 07:16] VITALS: BP 198/94; PULSE 59; TEMP 97.8; O2SAT 100
[2021-09-04] MEDS: NIFEdipine XL (24 HR) 30 MG TAB.ER.24 PO SCH (08:17)
[2021-09-04] MEDS: predniSONE 10 MG TABLET PO SCH (08:17)
[2021-09-04] MEDS: Furosemide 40 MG TABLET PO SCH (08:17)
[2021-09-04] MEDS: Pregabalin 50 MG CAPSULE PO SCH (08:17)
[2021-09-04] MEDS: Aspirin 81 MG TAB.CHEW PO SCH (08:18)
[2021-09-04] MEDS: Apixaban 5 MG TABLET PO SCH (08:18)
[2021-09-04] MEDS: Insulin LISPRO 300 UNITS/3 ML VIAL SUBQ SCH ×2 (08:18→11:41)
[2021-09-04] MEDS: carvediloL 6.25 MG TABLET PO SCH (08:18)
[2021-09-04] MEDS: Insulin DETEMIR 100 UNIT/ML X5UNITS SUBQ SCH (08:28)
== END 2021-09-04 16:00 | disposition home health service (06) | DRG 280 ==
LOC: EMEROOARM 11:40 → SUATTDRO 18:38 → 2ANU 18:38
PROVIDERS: ADMIT Internal Medicine; ATTEND Hospitalist

== ENCOUNTER 2021-11-20 13:04 | Observation (INO) ==
[2021-11-20] MEDS ORDERED: Piperacillin/Tazobactam 3.375 GM in 0.9 % Sodium Chloride Mini Bag 100 ML IVPB ONE (13:46)
[2021-11-20] MEDS ORDERED: Isovue-370 500 ML BOTTLE IVP ONE (13:46)
[2021-11-20 13:55] LABS: Basophils # 0.1 K/mcL (0.0-0.2); Basophils % 0.6 %; Eosinophils # 0.1 K/mcL (0.0-0.6); Eosinophils % 0.6 %; Hematocrit 49.5 % (35.3-44.9); Hemoglobin 13.9 g/dL (11.5-15.4); Immature Granulocytes % 0.4 % (0-4); Lymphocytes # 1.1 K/mcL (0.6-4.6); Lymphocytes % 11.6 %; Mean Corpuscular HGB Conc 28.1 g/dL (31.6-35.5); Mean Corpuscular Hemoglobin 19.8 pg (28.0-33.3); Mean Corpuscular Volume 70.6 fL (83.0-100.0); Monocytes # 0.7 K/mcL (0.0-1.3); Monocytes % 7.5 %; Neutrophils # 7.6 K/mcL (1.6-8.9); Platelet Count 214 K/mcL (140-400); Red Blood Count 7.01 M/mcL (3.82-4.97); Segmented Neutrophils % 79.3 %; White Blood Count 9.6 K/mcL (4.3-11.1)
[2021-11-20 14:19] LABS: ABG Base Excess -1 mEq/L (-2 to 3); ABG HCO3 26 mEq/L (21-27); ABG Oxygen Saturation 92 % (95-98); ABG PCO2 45 mmHg (35-45); ABG PH 7.36 pH Units (7.32-7.45); ABG PO2 68 mmHg (85-104); ABG TCO2 27 mEq/L (20-26)
[2021-11-20 14:19] LABS: Alanine Aminotransferase 12 Units/L (7-52); Albumin 3.4 g/dL (3.5-5.7); Alkaline Phosphatase 137 Units/L (34-104); Aspartate Amino Transferase 14 Units/L (13-39); BUN/Creatinine Ratio 31 (6-26); Bilirubin,Total 0.5 mg/dL (0.3-1.0); Blood Urea Nitrogen 32 mg/dL (6-20); Calcium 9.3 mg/dL (8.6-10.3); Carbon Dioxide 25 mEq/L (23-29); Chloride 97 mEq/L (98-107); Globulin 3.3 g/dL (2.4-3.5); Glucose 224 mg/dL (70-105); Osmolality,Calculated 294 (280-300); Potassium 4.6 mEq/L (3.5-5.1); Sodium 135 mEq/L (136-145); Total Protein 6.7 g/dL (6.4-8.9); eGFR For African Americans > 60 (> 60); eGFR For Non-African Americans 55 (> 60)
[2021-11-20 14:24] LABS: Troponin I 0.05 ng/mL (< 0.04)
[2021-11-20 14:30] LABS: Influenza A PCR Negative (Negative); Influenza B PCR Negative (Negative); Resp. Syncytial Virus PCR Negative (Negative)
[2021-11-20 14:34] LABS: SARS-CoV-2 by PCR (In House) Negative (Negative)
[2021-11-20] MEDS ORDERED: Furosemide 20 MG/2 ML VIAL IVP ONE (14:39)
[2021-11-20 15:01] LABS: Bacteria,Urine Few per hpf (None-Few); Bilirubin,Urine Negative (Negative); Blood,Urine Small (Negative); Clarity,Urine Clear (Clear); Color,Urine Colorless (Yellow); Glucose,Urine (UA) 500 mg/dL (Normal); Hyaline Casts,Urine Few per lpf (None Seen); Ketones,Urine Negative (Negative); Leukocyte Esterase,Urine Negative (Negative); Mucus,Urine Few per lpf (None-Few); Nitrite,Urine Negative (Negative); Protein,Urine 70 mg/dL (Neg-Trace); RBC,Urine 15-30 per hpf (0-3); Specific Gravity,Urine 1.007 (1.010-1.025); Squamous Epithelial Cell,Urine Few per hpf (None-Few); Urobilinogen,Urine Normal (Normal); WBC,Urine 0-3 per hpf (0-3)
[2021-11-20] MEDS ORDERED: Ondansetron 4 MG/2 ML VIAL IVP PRN (20:07)
[2021-11-20] MEDS ORDERED: Naloxone 0.4 MG/ML INJ IVP PRN (20:07)
[2021-11-20] MEDS ORDERED: Furosemide 40 MG/4 ML VIAL IVP ONE (20:10)
[2021-11-20] MEDS ORDERED: D5% in Water 1,000 ML IVC PRN (20:21)
[2021-11-20] MEDS ORDERED: *HR* Dextrose 50 % in Water (Syg) 50 ML SYRINGE IVP PRN (20:21)
[2021-11-20] MEDS ORDERED: Dextrose Gel 15 GM/37.5 ML TUBE PO PRN ×2 (20:21)
[2021-11-20] MEDS: Melatonin 3 MG TABLET PO PRN (22:27)
[2021-11-20] MEDS: Insulin DETEMIR 100 UNIT/ML X5UNITS SUBQ SCH (22:46)
[2021-11-20] MEDS: Insulin LISPRO 300 UNITS/3 ML VIAL SUBQ SCH (22:47)
[2021-11-21 01:51] LABS: Red Cell Distribution Width 26.1 % (11.5-14.5)
[2021-11-21 01:53] LABS: Hematocrit 49.1 % (35.3-44.9); Hemoglobin 13.6 g/dL (11.5-15.4); Immature Platelets 4.6 % (1.1-6.1); Mean Corpuscular HGB Conc 27.7 g/dL (31.6-35.5); Mean Corpuscular Hemoglobin 19.6 pg (28.0-33.3); Mean Corpuscular Volume 70.7 fL (83.0-100.0); Platelet Count 207 K/mcL (140-400); Red Blood Count 6.94 M/mcL (3.82-4.97); White Blood Count 10.8 K/mcL (4.3-11.1)
[2021-11-21 02:12] LABS: Calcium 8.9 mg/dL (8.6-10.3)
[2021-11-21] MEDS: Insulin LISPRO 300 UNITS/3 ML VIAL SUBQ SCH ×3 (07:43→17:10)
[2021-11-21] MEDS: Furosemide 40 MG/4 ML VIAL IVP SCH (07:49)
[2021-11-21] MEDS: Acetaminophen 325 MG TABLET PO PRN (17:09)
[2021-11-21] MEDS: Insulin DETEMIR 100 UNIT/ML X5UNITS SUBQ SCH (23:25)
[2021-11-21] MEDS: Cefdinir 300 MG CAPSULE PO SCH (23:25)
[2021-11-21] MEDS: Apixaban 5 MG TABLET PO SCH (23:25)
[2021-11-22] MEDS: Melatonin 3 MG TABLET PO PRN (00:33)
[2021-11-22] MEDS: Acetaminophen 325 MG TABLET PO PRN ×3 (00:33→20:18)
[2021-11-22] MEDS: Furosemide 40 MG/4 ML VIAL IVP SCH (07:37)
[2021-11-22] MEDS: Cefdinir 300 MG CAPSULE PO SCH ×2 (07:37→20:18)
[2021-11-22] MEDS: Insulin LISPRO 300 UNITS/3 ML VIAL SUBQ SCH ×3 (07:38→17:26)
[2021-11-22] MEDS: Apixaban 5 MG TABLET PO SCH ×2 (07:38→20:18)
[2021-11-22 10:43] LABS: Immature Granulocytes % 0.3 % (0-4); Mean Corpuscular Hemoglobin 19.5 pg (28.0-33.3); Mean Corpuscular Volume 71.1 fL (83.0-100.0); Red Cell Distribution Width 26.8 % (11.5-14.5)
[2021-11-22 10:44] LABS: Basophils # 0.1 K/mcL (0.0-0.2); Basophils % 0.9 %; Eosinophils # 0.2 K/mcL (0.0-0.6); Eosinophils % 1.7 %; Hemoglobin 15.2 g/dL (11.5-15.4); Immature Platelets 4.1 % (1.1-6.1); Lymphocytes # 0.8 K/mcL (0.6-4.6); Lymphocytes % 8.7 %; Mean Corpuscular HGB Conc 27.4 g/dL (31.6-35.5); Monocytes # 0.7 K/mcL (0.0-1.3); Monocytes % 8.1 %; Neutrophils # 7.3 K/mcL (1.6-8.9); Platelet Count 239 K/mcL (140-400); Red Blood Count 7.79 M/mcL (3.82-4.97); Segmented Neutrophils % 80.3 %; White Blood Count 9.1 K/mcL (4.3-11.1)
[2021-11-22 10:53] LABS: Hematocrit 55.4 % (35.3-44.9)
[2021-11-22 11:01] LABS: BUN/Creatinine Ratio 31 (6-26); Blood Urea Nitrogen 37 mg/dL (6-20); Calcium 9.4 mg/dL (8.6-10.3); Carbon Dioxide 35 mEq/L (23-29); Chloride 96 mEq/L (98-107); Glucose 173 mg/dL (70-105); Magnesium 2.4 mg/dL (1.6-2.6); Osmolality,Calculated 301 (280-300); Potassium 3.7 mEq/L (3.5-5.1); Sodium 139 mEq/L (136-145); eGFR For African Americans 55 (> 60); eGFR For Non-African Americans 46 (> 60)
[2021-11-22 11:11] LABS: C-Reactive Protein < 5 mg/L (Less than 10)
[2021-11-22 12:20] LABS: Anisocytosis 1+ (Not Present)
[2021-11-22 12:21] LABS: Hypochromasia Present (Not Present); Microcytosis Present (Not Present); Platelet Estimate Normal (Normal)
[2021-11-22] MEDS: NIFEdipine XL (24 HR) 30 MG TAB.ER.24 PO SCH (12:45)
[2021-11-22] MEDS: LIPASE PO SCH (17:26)
[2021-11-22] MEDS: PROTEASE PO SCH (17:26)
[2021-11-22] MEDS: AMYLASE PO SCH (17:26)
[2021-11-22] MEDS: Bumetanide 1 MG TABLET PO SCH (17:26)
[2021-11-22] MEDS: Pregabalin 50 MG CAPSULE PO SCH (20:18)
[2021-11-22] MEDS: Insulin DETEMIR 100 UNIT/ML X5UNITS SUBQ SCH (20:28)
[2021-11-22 21:27] LABS: Adenovirus Not Detected (Not Detect); Bordetella Pertussis Not Detected (Not Detect); Chlamydophila pneumoniae Not Detected (Not Detect); Coronavirus 229E Not Detected (Not Detect); Coronavirus HKU1 Not Detected (Not Detect); Coronavirus NL63 Not Detected (Not Detect); Coronavirus OC43 Not Detected (Not Detect); Human Metapneumovirus Not Detected (Not Detect); Human Rhinovirus/Enterovirus Not Detected (Not Detect); Influenza A Subtype 2009 H1 Not Detected (Not Detect); Influenza B Not Detected (Not Detect); Mycoplasma pneumoniae Not Detected (Not Detect); Parainfluenza Virus 1 Not Detected (Not Detect); Parainfluenza Virus 2 Not Detected (Not Detect); Parainfluenza Virus 3 Not Detected (Not Detect); Parainfluenza Virus 4 Not Detected (Not Detect); Respiratory Syncytial Virus Not Detected (Not Detect); SARS-CoV-2 Not Detected (Not Detect)
[2021-11-22] MEDS: Insulin NPH/REG 70/30 100 UNIT/ML (x5UNIT) SUBQ SCH (21:29)
[2021-11-23] MEDS: Acetaminophen 325 MG TABLET PO PRN ×2 (01:10→13:16)
[2021-11-23] MEDS: Melatonin 3 MG TABLET PO PRN (01:10)
[2021-11-23 07:36] VITALS: TEMP 98.2
[2021-11-23] MEDS: Bumetanide 1 MG TABLET PO SCH (08:31)
[2021-11-23] MEDS: Pregabalin 50 MG CAPSULE PO SCH (08:31)
[2021-11-23] MEDS: Apixaban 5 MG TABLET PO SCH (08:31)
[2021-11-23] MEDS: NIFEdipine XL (24 HR) 30 MG TAB.ER.24 PO SCH (08:31)
[2021-11-23] MEDS: Cefdinir 300 MG CAPSULE PO SCH (08:31)
[2021-11-23] MEDS: Insulin NPH/REG 70/30 100 UNIT/ML (x5UNIT) SUBQ SCH (08:32)
[2021-11-23] MEDS: Insulin LISPRO 300 UNITS/3 ML VIAL SUBQ SCH ×2 (08:33→11:56)
[2021-11-23] MEDS: AMYLASE PO SCH ×2 (08:37→11:34)
[2021-11-23] MEDS: PROTEASE PO SCH ×2 (08:37→11:34)
[2021-11-23] MEDS: LIPASE PO SCH ×2 (08:37→11:34)
[2021-11-23] MEDS ORDERED: Cholecalciferol (D-3) 1,000 UNIT (25MCG) TABLET PO SCH (09:00)
[2021-11-23] MEDS ORDERED: metOLazone 2.5 MG TABLET PO SCH (09:00)
[2021-11-23] MEDS ORDERED: Loratadine 10 MG TABLET PO SCH (09:00)
[2021-11-23] MEDS ORDERED: Aspirin Enteric Coated 81 MG Tablet PO SCH (09:00)
[2021-11-23 15:23] VITALS: BP 126/74; PULSE 79; O2SAT 92
== END 2021-11-23 16:06 | disposition home health service (06) ==
LOC: EMEROOARM 13:04 → 3ANU 13:04 → SUATTDRO 20:51 → 3ANU 21:43
PROVIDERS: ADMIT Internal Medicine; ATTEND Internal Medicine

== ENCOUNTER 2021-12-23 11:05 | Inpatient (IN) ==
[2021-12-23] MEDS ORDERED: *HR* Dextrose 50 % in Water (Syg) 50 ML SYRINGE ONE ×2 (11:26→15:44)
[2021-12-23] MEDS ORDERED: D5% in Water 1,000 ML IVC ONE (11:27)
[2021-12-23 11:50] LABS: Basophils % 0.3 %; Red Cell Distribution Width 28.3 % (11.5-14.5)
[2021-12-23 11:53] LABS: Basophils # 0.1 K/mcL (0.0-0.2); Hemoglobin 15.1 g/dL (11.5-15.4); Immature Platelets 8.5 % (1.1-6.1); Lymphocytes % 1.8 %; Mean Corpuscular Volume 72.4 fL (83.0-100.0); Neutrophils # 26.2 K/mcL (1.6-8.9); Nucleated Red Blood Cells 0.1 /100 WBC (0); Platelet Count 251 K/mcL (140-400); Red Blood Count 7.18 M/mcL (3.82-4.97); Segmented Neutrophils % 86.9 %
[2021-12-23 11:57] LABS: Lymphocytes # 0.5 K/mcL (0.6-4.6)
[2021-12-23 11:58] LABS: INR 1.3; Prothrombin Time 14.7 Seconds (9.4-12.1); White Blood Count 30.2 K/mcL (4.3-11.1)
[2021-12-23 12:01] LABS: Activated Partial Thrombo Time 29.9 Seconds (26.0-36.0)
[2021-12-23 12:13] LABS: Platelet Estimate Normal (Normal)
[2021-12-23 12:14] LABS: Anisocytosis 1+ (Not Present); Large Platelets Present (Not Present)
[2021-12-23] MEDS ORDERED: *HR* Etomidate 20 MG/10 ML AMPUL IVP ONE (12:24)
[2021-12-23] MEDS ORDERED: *HR* Rocuronium Bromide 100 MG/10 ML VIAL ONE (12:24)
[2021-12-23 13:01] LABS: ABG Base Excess 1 mEq/L (-2 to 3); ABG HCO3 29 mEq/L (21-27); ABG Oxygen Saturation 100 % (95-98); ABG PCO2 56 mmHg (35-45); ABG PH 7.33 pH Units (7.32-7.45); ABG PO2 385 mmHg (85-104); ABG TCO2 31 mEq/L (20-26); Blood Gas Modality ASSIST CONTROL; Blood Gas VT 356 cc
[2021-12-23 13:58] LABS: Troponin I 0.04 ng/mL (< 0.04)
[2021-12-23 14:04] LABS: Bacteria,Urine Few per hpf (None-Few); Bilirubin,Urine Negative (Negative); Blood,Urine Small (Negative); Clarity,Urine Clear (Clear); Color,Urine Light-Yellow (Yellow); Glucose,Urine (UA) 500 mg/dL (Normal); Hyaline Casts,Urine Few per lpf (None Seen); Ketones,Urine Negative (Negative); Leukocyte Esterase,Urine Negative (Negative); Mucus,Urine Few per lpf (None-Few); Nitrite,Urine Negative (Negative); PH,Urine 7.5 pH Units (5.0-8.0); Protein,Urine >=300 mg/dL (Neg-Trace); Specific Gravity,Urine 1.016 (1.010-1.025); Squamous Epithelial Cell,Urine Few per hpf (None-Few); Urobilinogen,Urine Normal (Normal)
[2021-12-23 14:06] LABS: Alanine Aminotransferase 9 Units/L (7-52); Albumin 3.7 g/dL (3.5-5.7); Albumin/Globulin Ratio 1.2 (1.1-2.2); Alkaline Phosphatase 99 Units/L (34-104); Aspartate Amino Transferase 18 Units/L (13-39); BUN/Creatinine Ratio 41 (6-26); Bilirubin,Direct 0.2 mg/dL (0.0-0.2); Bilirubin,Indirect 0.5 mg/dL (0.0-1.0); Bilirubin,Total 0.7 mg/dL (0.3-1.0); Blood Urea Nitrogen 45 mg/dL (6-20); Calcium 9.3 mg/dL (8.6-10.3); Carbon Dioxide 28 mEq/L (23-29); Chloride 91 mEq/L (98-107); Creatine Kinase 193 Units/L (30-223); Ethanol < 10 mg/dL (Less than 10); Glucose 90 mg/dL (70-105); Osmolality,Calculated 277 (280-300); Potassium 3.7 mEq/L (3.5-5.1); Sodium 128 mEq/L (136-145); Total Protein 6.7 g/dL (6.4-8.9); eGFR For African Americans > 60 (> 60); eGFR For Non-African Americans 50 (> 60)
[2021-12-23 14:12] LABS: Amphetamine Screen,Urine Negative ng/mL (Cutoff=1000); Barbiturate Screen,Urine Negative ng/mL (Cutoff=200); Benzodiazepines Screen,Urine Negative ng/mL (Cutoff=200); Cannabinoid Screen,Urine Negative ng/mL (Cutoff = 50); Cocaine Screen,Urine Negative ng/mL (Cutoff= 300); Opiate Screen,Urine Negative ng/mL (Cutoff=300); Phencyclidine Screen,Urine Negative ng/mL (Cutoff=25)
[2021-12-23] MEDS ORDERED: Artificial Tears SOLN 15 ML BOTTLE BOTH EYES PRN (14:40)
[2021-12-23] MEDS ORDERED: Isovue-370 500 ML BOTTLE IVP ONE (14:43)
[2021-12-23] MEDS ORDERED: Vancomycin 1,500 MG/265 ML IV.SOLN IVPB ONE (15:30)
[2021-12-23] MEDS: Meropenem 1,000 MG in 0.9 % Sodium Chloride Mini Bag 100 ML IVPB SCH (15:36)
[2021-12-23] MEDS ORDERED: *HR* Dextrose 50 % in Water (Syg) 50 ML SYRINGE IVP ONE (15:45)
[2021-12-23] MEDS ORDERED: 0.9 % Sodium Chloride 1,000 ML IV ONE (16:04)
[2021-12-23 16:28] LABS: ABG Base Excess 3 mEq/L (-2 to 3); ABG HCO3 28 mEq/L (21-27); ABG Oxygen Saturation 100 % (95-98); ABG PCO2 45 mmHg (35-45); ABG PH 7.41 pH Units (7.32-7.45); ABG PO2 237 mmHg (85-104); ABG TCO2 30 mEq/L (20-26); Blood Gas Modality VC; Blood Gas VT 360 cc
[2021-12-23] MEDS: FentaNYL (PF) 1,000 MCG/100 ML IV.SOLN IVC SCH (16:50)
[2021-12-23] MEDS: Thiamine (B-1) 100 MG in 0.9 % Sodium Chloride 50 ML IVPB SCH (17:53)
[2021-12-23] MEDS ORDERED: Acyclovir 500 MG in D5% in Water 100 ML IVPB SCH (18:00)
[2021-12-23] MEDS: D10% in Water 500 ML IVC SCH ×2 (18:02→23:09)
[2021-12-23] MEDS ORDERED: Acetaminophen 650 MG RECTAL SUPP RC ONE (21:37)
[2021-12-23] MEDS ORDERED: Naloxone 0.4 MG/ML INJ IVP PRN (22:02)
[2021-12-23] MEDS: *HR* Heparin 5,000 UNIT/ML VIAL SQ SCH (23:05)
[2021-12-24 00:19] LABS: Adenovirus Not Detected (Not Detect); Bordetella Pertussis Not Detected (Not Detect); Chlamydophila pneumoniae Not Detected (Not Detect); Coronavirus 229E Not Detected (Not Detect); Coronavirus HKU1 Not Detected (Not Detect); Coronavirus NL63 Not Detected (Not Detect); Coronavirus OC43 Not Detected (Not Detect); Human Metapneumovirus Not Detected (Not Detect); Human Rhinovirus/Enterovirus Not Detected (Not Detect); Influenza A Subtype 2009 H1 Not Detected (Not Detect); Influenza B Not Detected (Not Detect); Mycoplasma pneumoniae Not Detected (Not Detect); Parainfluenza Virus 1 Not Detected (Not Detect); Parainfluenza Virus 2 Not Detected (Not Detect); Parainfluenza Virus 3 Not Detected (Not Detect); Parainfluenza Virus 4 Not Detected (Not Detect); Respiratory Syncytial Virus Not Detected (Not Detect); SARS-CoV-2 Not Detected (Not Detect)
[2021-12-24 01:12] LABS: Basophils % 0.2 %
[2021-12-24 01:14] LABS: Basophils # 0.1 K/mcL (0.0-0.2); Eosinophils # 0.1 K/mcL (0.0-0.6); Eosinophils % 0.3 %; Hematocrit 49.3 % (35.3-44.9); Hemoglobin 14.7 g/dL (11.5-15.4); Immature Granulocytes % 0.8 % (0-4); Immature Platelets 6.3 % (1.1-6.1); Lymphocytes # 0.7 K/mcL (0.6-4.6); Lymphocytes % 2.2 %; Mean Corpuscular HGB Conc 29.8 g/dL (31.6-35.5); Mean Corpuscular Hemoglobin 21.3 pg (28.0-33.3); Mean Corpuscular Volume 71.4 fL (83.0-100.0); Monocytes # 2.1 K/mcL (0.0-1.3); Monocytes % 6.6 %; Platelet Count 224 K/mcL (140-400); Segmented Neutrophils % 89.9 %
[2021-12-24] MEDS: Chlorhexidine Rinse 15 ML MOUTHWASH MM SCH ×3 (01:15→21:18)
[2021-12-24] MEDS: Artificial Tears SOLN 15 ML BOTTLE BOTH EYES SCH ×7 (01:15→21:18)
[2021-12-24] MEDS: Pantoprazole 40 MG VIAL IVP SCH ×2 (01:16→09:02)
[2021-12-24 01:23] LABS: Neutrophils # 28.2 K/mcL (1.6-8.9)
[2021-12-24 01:27] LABS: White Blood Count 31.4 K/mcL (4.3-11.1)
[2021-12-24] MEDS: Meropenem 1,000 MG in 0.9 % Sodium Chloride Mini Bag 100 ML IVPB SCH ×4 (01:32→15:09)
[2021-12-24 01:37] LABS: Troponin I 0.44 ng/mL (< 0.04)
[2021-12-24 01:45] LABS: Anisocytosis 3+ (Not Present); Platelet Estimate Normal (Normal); Polychromasia 1+ (Not Present)
[2021-12-24 01:46] LABS: Hypochromasia Present (Not Present); Poikilocytosis 2+ (Not Present)
[2021-12-24 02:10] LABS: Alanine Aminotransferase 9 Units/L (7-52); Albumin/Globulin Ratio 1.2 (1.1-2.2); Alkaline Phosphatase 79 Units/L (34-104); Aspartate Amino Transferase 27 Units/L (13-39); BUN/Creatinine Ratio 37 (6-26); Bilirubin,Total 0.4 mg/dL (0.3-1.0); Blood Urea Nitrogen 40 mg/dL (6-20); Calcium 8.4 mg/dL (8.6-10.3); Carbon Dioxide 27 mEq/L (23-29); Chloride 90 mEq/L (98-107); Globulin 2.6 g/dL (2.4-3.5); Glucose 89 mg/dL (70-105); Magnesium 2.1 mg/dL (1.6-2.6); Osmolality,Calculated 271 (280-300); Phosphorous 4.6 mg/dL (2.7-4.5); Potassium 4.6 mEq/L (3.5-5.1); Sodium 126 mEq/L (136-145); Total Protein 5.6 g/dL (6.4-8.9); eGFR For African Americans > 60 (> 60); eGFR For Non-African Americans 53 (> 60)
[2021-12-24] MEDS: Acyclovir 500 MG in D5% in Water 100 ML IVPB SCH (03:11)
[2021-12-24] MEDS: D10% in Water 500 ML IVC SCH ×3 (04:22→14:48)
[2021-12-24] MEDS: *HR* Heparin 5,000 UNIT/ML VIAL SQ SCH ×3 (05:12→21:26)
[2021-12-24 05:26] LABS: ABG Base Excess 2 mEq/L (-2 to 3); ABG HCO3 27 mEq/L (21-27); ABG Oxygen Saturation 89 % (95-98); ABG PCO2 41 mmHg (35-45); ABG PH 7.42 pH Units (7.32-7.45); ABG PO2 55 mmHg (85-104); ABG TCO2 28 mEq/L (20-26); Blood Gas VT 360 cc
[2021-12-24 06:25] LABS: Hematocrit 52.4 % (35.3-44.9); Hemoglobin 15.4 g/dL (11.5-15.4); Immature Platelets 6.8 % (1.1-6.1); Mean Corpuscular HGB Conc 29.4 g/dL (31.6-35.5); Mean Corpuscular Hemoglobin 21.1 pg (28.0-33.3); Mean Corpuscular Volume 71.9 fL (83.0-100.0); Platelet Count 186 K/mcL (140-400); Red Blood Count 7.29 M/mcL (3.82-4.97); Red Cell Distribution Width 28.1 % (11.5-14.5); White Blood Count 29.3 K/mcL (4.3-11.1)
[2021-12-24 06:36] LABS: VBG Ionized Calcium 0.78 mmol/L (1.15-1.35)
[2021-12-24 07:17] LABS: BUN/Creatinine Ratio 40 (6-26); Blood Urea Nitrogen 42 mg/dL (6-20); Calcium 8.4 mg/dL (8.6-10.3); Carbon Dioxide 22 mEq/L (23-29); Chloride 91 mEq/L (98-107); Glucose 100 mg/dL (70-105); Magnesium 2.2 mg/dL (1.6-2.6); Osmolality,Calculated 271 (280-300); Potassium 4.3 mEq/L (3.5-5.1); Sodium 125 mEq/L (136-145); eGFR For African Americans > 60 (> 60); eGFR For Non-African Americans 54 (> 60)
[2021-12-24 07:54] LABS: Anisocytosis 2+ (Not Present); Lymphocytes # 1.2 K/mcL (0.6-4.6); Monocytes # 1.2 K/mcL (0.0-1.3); Platelet Estimate Normal (Normal)
[2021-12-24] MEDS: Budesonide/Formoterol 160/4.5 1 PUFF INH IH SCH ×2 (08:10→20:13)
[2021-12-24] MEDS ORDERED: Budesonide/Formoterol 160/4.5 1 PUFF INH IH ONE (08:14)
[2021-12-24] MEDS: Thiamine (B-1) 100 MG in 0.9 % Sodium Chloride 50 ML IVPB SCH ×4 (09:01→21:26)
[2021-12-24] MEDS ORDERED: levETIRAcetam 1,000 MG in 0.9 % Sodium Chloride 100 ML IVPB ONE (14:00)
[2021-12-24] MEDS: FentaNYL (PF) 1,000 MCG/100 ML IV.SOLN IVC SCH (14:47)
[2021-12-24] MEDS: Vancomycin 1,250 MG/262.5 ML IV.SOLN IVPB SCH (15:08)
[2021-12-24] MEDS: MetroNIDAZOLE 500 MG/100 ML 500 MG/100 ML BAG IVPB SCH (15:09)
[2021-12-24] MEDS ORDERED: *HR* Dextrose 50 % in Water (Syg) 50 ML SYRINGE ONE (15:55)
[2021-12-24] MEDS: *HR* Dextrose 50 % in Water (Syg) 50 ML SYRINGE IVP PRN (16:06)
[2021-12-24] MEDS: Piperacillin/Tazobactam 3.375 GM in 0.9 % Sodium Chloride Mini Bag 100 ML IVPB SCH (18:15)
[2021-12-24 19:26] LABS: Folate 6.4 ng/mL (3.0-16.0)
[2021-12-25] MEDS: Artificial Tears SOLN 15 ML BOTTLE BOTH EYES SCH ×7 (00:54→23:05)
[2021-12-25] MEDS: MetroNIDAZOLE 500 MG/100 ML 500 MG/100 ML BAG IVPB SCH ×4 (00:54→23:05)
[2021-12-25] MEDS: Meropenem 1,000 MG in 0.9 % Sodium Chloride Mini Bag 100 ML IVPB SCH (03:33)
[2021-12-25 04:29] LABS: Basophils % 0.2 %; Immature Granulocytes % 0.9 % (0-4)
[2021-12-25 04:31] LABS: Basophils # 0.1 K/mcL (0.0-0.2); Eosinophils % 0.1 %; Hematocrit 42.8 % (35.3-44.9); Hemoglobin 12.6 g/dL (11.5-15.4); Immature Platelets 6.4 % (1.1-6.1); Lymphocytes # 0.6 K/mcL (0.6-4.6); Lymphocytes % 2.2 %; Mean Corpuscular HGB Conc 29.4 g/dL (31.6-35.5); Mean Corpuscular Hemoglobin 20.7 pg (28.0-33.3); Mean Corpuscular Volume 70.3 fL (83.0-100.0); Monocytes # 1.7 K/mcL (0.0-1.3); Neutrophils # 26.3 K/mcL (1.6-8.9); Platelet Count 182 K/mcL (140-400); Red Blood Count 6.09 M/mcL (3.82-4.97); Red Cell Distribution Width 27.4 % (11.5-14.5); Segmented Neutrophils % 90.6 %
[2021-12-25 04:49] LABS: BUN/Creatinine Ratio 36 (6-26); Blood Urea Nitrogen 33 mg/dL (6-20); Calcium 7.2 mg/dL (8.6-10.3); Carbon Dioxide 27 mEq/L (23-29); Chloride 97 mEq/L (98-107); Glucose 86 mg/dL (70-105); Osmolality,Calculated 283 (280-300); Potassium 3.4 mEq/L (3.5-5.1); Sodium 133 mEq/L (136-145); eGFR For African Americans > 60 (> 60); eGFR For Non-African Americans > 60 (> 60)
[2021-12-25 04:56] LABS: ABG Base Excess 3 mEq/L (-2 to 3); ABG HCO3 28 mEq/L (21-27); ABG Oxygen Saturation 93 % (95-98); ABG PCO2 42 mmHg (35-45); ABG PH 7.44 pH Units (7.32-7.45); ABG PO2 66 mmHg (85-104); ABG TCO2 29 mEq/L (20-26); Blood Gas VT 360 cc
[2021-12-25 05:23] LABS: Platelet Estimate Normal (Normal)
[2021-12-25 05:25] LABS: Anisocytosis 2+ (Not Present); Poikilocytosis 1+ (Not Present); Polychromasia 1+ (Not Present)
[2021-12-25] MEDS: *HR* Heparin 5,000 UNIT/ML VIAL SQ SCH ×3 (06:17→21:04)
[2021-12-25] MEDS: Piperacillin/Tazobactam 3.375 GM in 0.9 % Sodium Chloride Mini Bag 100 ML IVPB SCH ×2 (06:17→18:32)
[2021-12-25] MEDS: Budesonide/Formoterol 160/4.5 1 PUFF INH IH SCH ×2 (08:08→19:51)
[2021-12-25] MEDS: Chlorhexidine Rinse 15 ML MOUTHWASH MM SCH ×2 (08:41→20:03)
[2021-12-25] MEDS: Pantoprazole 40 MG VIAL IVP SCH (08:41)
[2021-12-25] MEDS: Furosemide 20 MG/2 ML VIAL IVP SCH (08:41)
[2021-12-25] MEDS: FentaNYL (PF) 1,000 MCG/100 ML IV.SOLN IVC SCH ×2 (08:42→23:10)
[2021-12-25] MEDS: Thiamine (B-1) 100 MG in 0.9 % Sodium Chloride 50 ML IVPB SCH ×3 (08:45→20:03)
[2021-12-25 09:46] LABS: VBG Ionized Calcium 1.07 mmol/L (1.15-1.35)
[2021-12-25 10:56] LABS: Troponin I 0.29 ng/mL (< 0.04)
[2021-12-25] MEDS ORDERED: Calcium Gluconate 1gm/50mL 1 GM/50 ML BAG IVPB PRN (14:08)
[2021-12-25] MEDS: Vancomycin 1,250 MG/262.5 ML IV.SOLN IVPB SCH (15:12)
[2021-12-25] MEDS ORDERED: *HR* Dextrose 50 % in Water (Syg) 50 ML SYRINGE IVP PRN (16:27)
[2021-12-25] MEDS ORDERED: Dextrose Gel 15 GM/37.5 ML TUBE PO PRN ×2 (16:27)
[2021-12-25] MEDS: Insulin LISPRO 300 UNITS/3 ML VIAL SUBQ SCH ×2 (18:29→23:05)
[2021-12-26 03:28] LABS: VBG Ionized Calcium 1.17 mmol/L (1.15-1.35)
[2021-12-26 03:31] LABS: Basophils # 0.1 K/mcL (0.0-0.2); Basophils % 0.2 %; Hemoglobin 13.1 g/dL (11.5-15.4); Red Cell Distribution Width 27.5 % (11.5-14.5); White Blood Count 28.2 K/mcL (4.3-11.1)
[2021-12-26 03:33] LABS: Eosinophils # 0.1 K/mcL (0.0-0.6); Eosinophils % 0.2 %; Hematocrit 44.3 % (35.3-44.9); Immature Granulocytes % 0.8 % (0-4); Immature Platelets 5.3 % (1.1-6.1); Lymphocytes # 0.7 K/mcL (0.6-4.6); Lymphocytes % 2.6 %; Mean Corpuscular HGB Conc 29.6 g/dL (31.6-35.5); Mean Corpuscular Hemoglobin 21.1 pg (28.0-33.3); Mean Corpuscular Volume 71.3 fL (83.0-100.0); Monocytes # 1.7 K/mcL (0.0-1.3); Monocytes % 5.9 %; Neutrophils # 25.5 K/mcL (1.6-8.9); Platelet Count 210 K/mcL (140-400); Red Blood Count 6.21 M/mcL (3.82-4.97); Segmented Neutrophils % 90.3 %
[2021-12-26] MEDS: Artificial Tears SOLN 15 ML BOTTLE BOTH EYES SCH ×6 (03:35→23:46)
[2021-12-26 03:57] LABS: Anisocytosis 2+ (Not Present); Platelet Estimate Normal (Normal); Polychromasia 1+ (Not Present)
[2021-12-26 04:08] LABS: BUN/Creatinine Ratio 44 (6-26); Blood Urea Nitrogen 38 mg/dL (6-20); Calcium 8.6 mg/dL (8.6-10.3); Carbon Dioxide 29 mEq/L (23-29); Chloride 99 mEq/L (98-107); Glucose 187 mg/dL (70-105); Osmolality,Calculated 294 (280-300); Potassium 4.2 mEq/L (3.5-5.1); Sodium 135 mEq/L (136-145); eGFR For African Americans > 60 (> 60); eGFR For Non-African Americans > 60 (> 60)
[2021-12-26] MEDS: *HR* Heparin 5,000 UNIT/ML VIAL SQ SCH ×3 (05:00→21:06)
[2021-12-26] MEDS: Piperacillin/Tazobactam 3.375 GM in 0.9 % Sodium Chloride Mini Bag 100 ML IVPB SCH ×3 (05:00→23:32)
[2021-12-26] MEDS: Insulin LISPRO 300 UNITS/3 ML VIAL SUBQ SCH ×4 (05:01→23:45)
[2021-12-26 05:24] LABS: ABG Base Excess 5 mEq/L (-2 to 3); ABG HCO3 31 mEq/L (21-27); ABG Oxygen Saturation 93 % (95-98); ABG PCO2 48 mmHg (35-45); ABG PH 7.41 pH Units (7.32-7.45); ABG PO2 66 mmHg (85-104); ABG TCO2 32 mEq/L (20-26); Blood Gas VT 360 cc
[2021-12-26] MEDS: Chlorhexidine Rinse 15 ML MOUTHWASH MM SCH ×2 (07:39→21:06)
[2021-12-26] MEDS: Furosemide 20 MG/2 ML VIAL IVP SCH (07:39)
[2021-12-26] MEDS: Pantoprazole 40 MG VIAL IVP SCH (07:39)
[2021-12-26] MEDS: MetroNIDAZOLE 500 MG/100 ML 500 MG/100 ML BAG IVPB SCH (07:40)
[2021-12-26] MEDS: Thiamine (B-1) 100 MG in 0.9 % Sodium Chloride 50 ML IVPB SCH ×3 (07:42→22:06)
[2021-12-26] MEDS: Budesonide/Formoterol 160/4.5 1 PUFF INH IH SCH ×2 (08:20→19:52)
[2021-12-26] MEDS: Acyclovir 500 MG in D5% in Water 100 ML IVPB SCH (12:21)
[2021-12-27 03:30] LABS: Basophils # 0.1 K/mcL (0.0-0.2); Basophils % 0.3 %; Eosinophils # 0.2 K/mcL (0.0-0.6); Eosinophils % 0.9 %; Hematocrit 45.4 % (35.3-44.9); Immature Granulocytes % 0.4 % (0-4); Lymphocytes # 0.9 K/mcL (0.6-4.6); Lymphocytes % 4.5 %; Mean Corpuscular HGB Conc 28.6 g/dL (31.6-35.5); Mean Corpuscular Hemoglobin 20.7 pg (28.0-33.3); Mean Corpuscular Volume 72.3 fL (83.0-100.0); Monocytes # 1.4 K/mcL (0.0-1.3); Monocytes % 7.2 %; Neutrophils # 17.1 K/mcL (1.6-8.9); Platelet Count 212 K/mcL (140-400); Red Blood Count 6.28 M/mcL (3.82-4.97); Red Cell Distribution Width 27.9 % (11.5-14.5); Segmented Neutrophils % 86.7 %; White Blood Count 19.7 K/mcL (4.3-11.1)
[2021-12-27 03:32] LABS: Anisocytosis 3+ (Not Present); Platelet Estimate Normal (Normal)
[2021-12-27 03:49] LABS: BUN/Creatinine Ratio 50 (6-26); Blood Urea Nitrogen 39 mg/dL (6-20); Calcium 8.7 mg/dL (8.6-10.3); Carbon Dioxide 32 mEq/L (23-29); Chloride 102 mEq/L (98-107); Glucose 199 mg/dL (70-105); Osmolality,Calculated 303 (280-300); Potassium 4.2 mEq/L (3.5-5.1); Sodium 139 mEq/L (136-145); eGFR For African Americans > 60 (> 60); eGFR For Non-African Americans > 60 (> 60)
[2021-12-27] MEDS: Artificial Tears SOLN 15 ML BOTTLE BOTH EYES SCH ×6 (04:12→23:10)
[2021-12-27 04:28] LABS: ABG Base Excess 5 mEq/L (-2 to 3); ABG HCO3 31 mEq/L (21-27); ABG Oxygen Saturation 97 % (95-98); ABG PCO2 49 mmHg (35-45); ABG PH 7.41 pH Units (7.32-7.45); ABG PO2 86 mmHg (85-104); ABG TCO2 33 mEq/L (20-26); Blood Gas Modality AF; Blood Gas VT 360 cc
[2021-12-27] MEDS: *HR* Heparin 5,000 UNIT/ML VIAL SQ SCH ×3 (05:41→23:10)
[2021-12-27] MEDS: Insulin LISPRO 300 UNITS/3 ML VIAL SUBQ SCH ×4 (05:42→23:15)
[2021-12-27] MEDS: FentaNYL (PF) 1,000 MCG/100 ML IV.SOLN IVC SCH ×2 (06:15→15:07)
[2021-12-27] MEDS: Furosemide 20 MG/2 ML VIAL IVP SCH (07:39)
[2021-12-27] MEDS: Chlorhexidine Rinse 15 ML MOUTHWASH MM SCH ×2 (07:39→19:44)
[2021-12-27] MEDS: Pantoprazole 40 MG VIAL IVP SCH (07:39)
[2021-12-27] MEDS: Piperacillin/Tazobactam 3.375 GM in 0.9 % Sodium Chloride Mini Bag 100 ML IVPB SCH ×3 (07:39→23:47)
[2021-12-27] MEDS: Budesonide/Formoterol 160/4.5 1 PUFF INH IH SCH ×2 (08:09→19:55)
[2021-12-27] MEDS: Thiamine (B-1) 100 MG in 0.9 % Sodium Chloride 50 ML IVPB SCH ×3 (09:49→20:16)
[2021-12-27] MEDS: *HR* Labetalol 20 MG/4 ML SYRINGE IVP PRN ×2 (13:06→23:47)
[2021-12-28 04:14] LABS: Basophils # 0.1 K/mcL (0.0-0.2); Basophils % 0.5 %; Eosinophils # 0.4 K/mcL (0.0-0.6); Eosinophils % 3.1 %; Hematocrit 46.8 % (35.3-44.9); Immature Granulocytes % 0.3 % (0-4); Immature Platelets 3.6 % (1.1-6.1); Lymphocytes # 0.8 K/mcL (0.6-4.6); Lymphocytes % 6.5 %; Mean Corpuscular HGB Conc 27.8 g/dL (31.6-35.5); Mean Corpuscular Hemoglobin 20.9 pg (28.0-33.3); Mean Corpuscular Volume 75.4 fL (83.0-100.0); Monocytes # 1.5 K/mcL (0.0-1.3); Monocytes % 11.6 %; Platelet Count 199 K/mcL (140-400); Red Blood Count 6.21 M/mcL (3.82-4.97); Red Cell Distribution Width 27.7 % (11.5-14.5); White Blood Count 12.8 K/mcL (4.3-11.1)
[2021-12-28 04:28] LABS: ABG Base Excess 7 mEq/L (-2 to 3); ABG HCO3 33 mEq/L (21-27); ABG Oxygen Saturation 93 % (95-98); ABG PCO2 52 mmHg (35-45); ABG PH 7.41 pH Units (7.32-7.45); ABG PO2 68 mmHg (85-104); ABG TCO2 35 mEq/L (20-26); Blood Gas VT 360 cc
[2021-12-28 04:35] LABS: VBG Ionized Calcium 1.11 mmol/L (1.15-1.35)
[2021-12-28 04:40] LABS: Anisocytosis 2+ (Not Present); Hypochromasia Present (Not Present)
[2021-12-28 04:41] LABS: Platelet Estimate Normal (Normal)
[2021-12-28] MEDS: Artificial Tears SOLN 15 ML BOTTLE BOTH EYES SCH ×5 (04:53→19:55)
[2021-12-28 05:18] LABS: Alanine Aminotransferase 7 Units/L (7-52); Albumin 2.7 g/dL (3.5-5.7); Alkaline Phosphatase 64 Units/L (34-104); Aspartate Amino Transferase 17 Units/L (13-39); BUN/Creatinine Ratio 53 (6-26); Bilirubin,Total 0.5 mg/dL (0.3-1.0); Blood Urea Nitrogen 40 mg/dL (6-20); Calcium 8.7 mg/dL (8.6-10.3); Carbon Dioxide 32 mEq/L (23-29); Chloride 102 mEq/L (98-107); Globulin 2.8 g/dL (2.4-3.5); Glucose 330 mg/dL (70-105); Magnesium 2.3 mg/dL (1.6-2.6); Osmolality,Calculated 313 (280-300); Phosphorous 2.5 mg/dL (2.7-4.5); Potassium 5.1 mEq/L (3.5-5.1); Sodium 140 mEq/L (136-145); Total Protein 5.5 g/dL (6.4-8.9); eGFR For African Americans > 60 (> 60); eGFR For Non-African Americans > 60 (> 60)
[2021-12-28] MEDS: Insulin LISPRO 300 UNITS/3 ML VIAL SUBQ SCH ×4 (06:14→20:14)
[2021-12-28] MEDS: *HR* Heparin 5,000 UNIT/ML VIAL SQ SCH ×3 (06:15→20:15)
[2021-12-28] MEDS: Budesonide/Formoterol 160/4.5 1 PUFF INH IH SCH ×2 (07:55→19:43)
[2021-12-28] MEDS: Chlorhexidine Rinse 15 ML MOUTHWASH MM SCH ×2 (08:27→19:52)
[2021-12-28] MEDS: Pantoprazole 40 MG VIAL IVP SCH (08:27)
[2021-12-28] MEDS: Thiamine (B-1) 100 MG in 0.9 % Sodium Chloride 50 ML IVPB SCH ×3 (08:27→20:07)
[2021-12-28] MEDS: Piperacillin/Tazobactam 3.375 GM in 0.9 % Sodium Chloride Mini Bag 100 ML IVPB SCH ×2 (08:29→16:17)
[2021-12-28 09:53] LABS: Thyroid Stimulating Hormone 0.952 mcIU/mL (0.340-5.600)
[2021-12-28 11:58] LABS: Estimated Average Glucose 266 mg/dl; Hemoglobin A1C 10.9 %
[2021-12-28] MEDS: *HR* Labetalol 20 MG/4 ML SYRINGE IVP PRN ×3 (13:03→17:33)
[2021-12-28] MEDS: FentaNYL (PF) 1,000 MCG/100 ML IV.SOLN IVC SCH (15:00)
[2021-12-28] MEDS: Insulin DETEMIR 100 UNIT/ML X5UNITS SUBQ SCH (20:17)
[2021-12-29] MEDS: Artificial Tears SOLN 15 ML BOTTLE BOTH EYES SCH ×7 (00:31→23:36)
[2021-12-29] MEDS: Piperacillin/Tazobactam 3.375 GM in 0.9 % Sodium Chloride Mini Bag 100 ML IVPB SCH ×2 (00:31→07:18)
[2021-12-29] MEDS: Insulin LISPRO 300 UNITS/3 ML VIAL SUBQ SCH ×7 (00:32→23:36)
[2021-12-29 04:14] LABS: ABG Base Excess 6 mEq/L (-2 to 3); ABG HCO3 33 mEq/L (21-27); ABG Oxygen Saturation 97 % (95-98); ABG PCO2 54 mmHg (35-45); ABG PH 7.39 pH Units (7.32-7.45); ABG PO2 90 mmHg (85-104); ABG TCO2 35 mEq/L (20-26); Blood Gas Modality ASSIST CONTROL; Blood Gas VT 360 cc
[2021-12-29 04:15] LABS: Basophils % 0.6 %; Immature Granulocytes % 0.5 % (0-4)
[2021-12-29 04:17] LABS: Basophils # 0.1 K/mcL (0.0-0.2); Eosinophils # 0.5 K/mcL (0.0-0.6); Eosinophils % 3.9 %; Hematocrit 44.4 % (35.3-44.9); Hemoglobin 12.3 g/dL (11.5-15.4); Immature Platelets 3.7 % (1.1-6.1); Lymphocytes % 7.6 %; Mean Corpuscular HGB Conc 27.7 g/dL (31.6-35.5); Mean Corpuscular Hemoglobin 20.9 pg (28.0-33.3); Mean Corpuscular Volume 75.4 fL (83.0-100.0); Monocytes # 1.1 K/mcL (0.0-1.3); Monocytes % 8.6 %; Neutrophils # 10.2 K/mcL (1.6-8.9); Platelet Count 202 K/mcL (140-400); Red Blood Count 5.89 M/mcL (3.82-4.97); Red Cell Distribution Width 27.7 % (11.5-14.5); Segmented Neutrophils % 78.8 %; White Blood Count 12.9 K/mcL (4.3-11.1)
[2021-12-29 04:33] LABS: VBG Ionized Calcium 1.29 mmol/L (1.15-1.35)
[2021-12-29 04:38] LABS: BUN/Creatinine Ratio 57 (6-26); Blood Urea Nitrogen 39 mg/dL (6-20); Carbon Dioxide 33 mEq/L (23-29); Chloride 108 mEq/L (98-107); Glucose 187 mg/dL (70-105); Magnesium 2.3 mg/dL (1.6-2.6); Osmolality,Calculated 316 (280-300); Phosphorous 3.3 mg/dL (2.7-4.5); Potassium 4.6 mEq/L (3.5-5.1); Sodium 146 mEq/L (136-145); eGFR For African Americans > 60 (> 60); eGFR For Non-African Americans > 60 (> 60)
[2021-12-29] MEDS: *HR* Heparin 5,000 UNIT/ML VIAL SQ SCH ×3 (05:19→21:34)
[2021-12-29 05:21] LABS: Anisocytosis 3+ (Not Present)
[2021-12-29 05:22] LABS: Hypochromasia Present (Not Present); Platelet Estimate Normal (Normal)
[2021-12-29] MEDS: Chlorhexidine Rinse 15 ML MOUTHWASH MM SCH ×2 (07:14→20:02)
[2021-12-29] MEDS: Thiamine (B-1) 100 MG in 0.9 % Sodium Chloride 50 ML IVPB SCH ×3 (07:15→20:43)
[2021-12-29] MEDS: Budesonide/Formoterol 160/4.5 1 PUFF INH IH SCH ×2 (07:17→19:54)
[2021-12-29] MEDS: Pantoprazole 40 MG VIAL IVP SCH (07:19)
[2021-12-29] MEDS: Insulin DETEMIR 100 UNIT/ML X5UNITS SUBQ SCH ×2 (07:19→20:02)
[2021-12-29] MEDS: FentaNYL (PF) 1,000 MCG/100 ML IV.SOLN IVC SCH (08:16)
[2021-12-30] MEDS: Artificial Tears SOLN 15 ML BOTTLE BOTH EYES SCH ×6 (03:45→23:41)
[2021-12-30] MEDS: Insulin LISPRO 300 UNITS/3 ML VIAL SUBQ SCH ×5 (03:46→21:15)
[2021-12-30 04:06] LABS: VBG Ionized Calcium 1.31 mmol/L (1.15-1.35)
[2021-12-30 04:21] LABS: BUN/Creatinine Ratio 64 (6-26); Blood Urea Nitrogen 43 mg/dL (6-20); Calcium 9.2 mg/dL (8.6-10.3); Carbon Dioxide 33 mEq/L (23-29); Chloride 106 mEq/L (98-107); Glucose 91 mg/dL (70-105); Magnesium 2.3 mg/dL (1.6-2.6); Osmolality,Calculated 302 (280-300); Phosphorous 3.5 mg/dL (2.7-4.5); Sodium 141 mEq/L (136-145); eGFR For African Americans > 60 (> 60); eGFR For Non-African Americans > 60 (> 60)
[2021-12-30 04:51] LABS: Mean Corpuscular Volume 75.7 fL (83.0-100.0)
[2021-12-30 04:54] LABS: Basophils # 0.1 K/mcL (0.0-0.2); Basophils % 0.6 %; Eosinophils % 3.8 %; Hemoglobin 13.3 g/dL (11.5-15.4); Immature Granulocytes % 0.6 % (0-4); Immature Platelets 4.9 % (1.1-6.1); Lymphocytes # 0.8 K/mcL (0.6-4.6); Lymphocytes % 4.9 %; Mean Corpuscular HGB Conc 28.3 g/dL (31.6-35.5); Mean Corpuscular Hemoglobin 21.4 pg (28.0-33.3); Monocytes # 1.2 K/mcL (0.0-1.3); Neutrophils # 14.1 K/mcL (1.6-8.9); Platelet Count 262 K/mcL (140-400); Red Blood Count 6.21 M/mcL (3.82-4.97); Segmented Neutrophils % 83.1 %
[2021-12-30 05:15] LABS: ABG Base Excess 5 mEq/L (-2 to 3); ABG HCO3 32 mEq/L (21-27); ABG Oxygen Saturation 96 % (95-98); ABG PCO2 53 mmHg (35-45); ABG PH 7.38 pH Units (7.32-7.45); ABG PO2 89 mmHg (85-104); ABG TCO2 33 mEq/L (20-26); Blood Gas VT 360 cc
[2021-12-30] MEDS: FentaNYL (PF) 1,000 MCG/100 ML IV.SOLN IVC SCH (05:30)
[2021-12-30] MEDS: *HR* Heparin 5,000 UNIT/ML VIAL SQ SCH ×3 (05:31→21:26)
[2021-12-30 05:36] LABS: Eosinophils # 0.7 K/mcL (0.0-0.6)
[2021-12-30] MEDS: Budesonide/Formoterol 160/4.5 1 PUFF INH IH SCH ×2 (07:47→21:07)
[2021-12-30] MEDS: Chlorhexidine Rinse 15 ML MOUTHWASH MM SCH ×2 (07:48→21:18)
[2021-12-30] MEDS: Pantoprazole 40 MG VIAL IVP SCH (07:49)
[2021-12-30] MEDS: Thiamine (B-1) 100 MG in 0.9 % Sodium Chloride 50 ML IVPB SCH ×3 (07:50→22:12)
[2021-12-30] MEDS: Insulin DETEMIR 100 UNIT/ML X5UNITS SUBQ SCH ×2 (07:51→21:22)
[2021-12-30 12:54] LABS: Triglycerides 119 mg/dL (< 150)
[2021-12-31] MEDS: FentaNYL (PF) 1,000 MCG/100 ML IV.SOLN IVC SCH (03:41)
[2021-12-31] MEDS: Artificial Tears SOLN 15 ML BOTTLE BOTH EYES SCH ×4 (03:43→16:59)
[2021-12-31] MEDS: Insulin LISPRO 300 UNITS/3 ML VIAL SUBQ SCH ×7 (03:44→23:46)
[2021-12-31 04:26] LABS: BUN/Creatinine Ratio 75 (6-26); Blood Urea Nitrogen 43 mg/dL (6-20); Carbon Dioxide 30 mEq/L (23-29); Chloride 104 mEq/L (98-107); Glucose 103 mg/dL (70-105); Magnesium 2.4 mg/dL (1.6-2.6); Osmolality,Calculated 293 (280-300); Phosphorous 4.1 mg/dL (2.7-4.5); Potassium 5.1 mEq/L (3.5-5.1); Sodium 136 mEq/L (136-145); eGFR For African Americans > 60 (> 60); eGFR For Non-African Americans > 60 (> 60)
[2021-12-31 05:16] LABS: ABG Base Excess 5 mEq/L (-2 to 3); ABG HCO3 32 mEq/L (21-27); ABG Oxygen Saturation 92 % (95-98); ABG PCO2 56 mmHg (35-45); ABG PH 7.37 pH Units (7.32-7.45); ABG PO2 66 mmHg (85-104); ABG TCO2 34 mEq/L (20-26); Blood Gas Modality ASSIST CONTROL; Blood Gas VT 360 cc
[2021-12-31] MEDS: *HR* Heparin 5,000 UNIT/ML VIAL SQ SCH ×3 (05:39→21:28)
[2021-12-31 05:52] LABS: Hematocrit 47.4 % (35.3-44.9); Hemoglobin 13.1 g/dL (11.5-15.4); Mean Corpuscular HGB Conc 27.6 g/dL (31.6-35.5); Mean Corpuscular Hemoglobin 20.8 pg (28.0-33.3); Mean Corpuscular Volume 75.2 fL (83.0-100.0); Platelet Count 243 K/mcL (140-400); Red Cell Distribution Width 28.1 % (11.5-14.5); White Blood Count 15.9 K/mcL (4.3-11.1)
[2021-12-31 05:53] LABS: Basophils # 0.1 K/mcL (0.0-0.2); Basophils % 0.6 %; Eosinophils # 0.6 K/mcL (0.0-0.6); Eosinophils % 3.6 %; Immature Granulocytes % 0.6 % (0-4); Lymphocytes # 1.1 K/mcL (0.6-4.6); Lymphocytes % 6.8 %; Monocytes # 1.2 K/mcL (0.0-1.3); Monocytes % 7.5 %; Neutrophils # 12.9 K/mcL (1.6-8.9); Segmented Neutrophils % 80.9 %
[2021-12-31] MEDS: Chlorhexidine Rinse 15 ML MOUTHWASH MM SCH (07:55)
[2021-12-31] MEDS: Pantoprazole 40 MG VIAL IVP SCH (07:56)
[2021-12-31] MEDS: Thiamine (B-1) 100 MG in 0.9 % Sodium Chloride 50 ML IVPB SCH ×3 (07:59→21:56)
[2021-12-31] MEDS: Insulin DETEMIR 100 UNIT/ML X5UNITS SUBQ SCH ×2 (08:09→21:36)
[2021-12-31] MEDS: Budesonide/Formoterol 160/4.5 1 PUFF INH IH SCH ×2 (08:23→19:52)
[2021-12-31] MEDS ORDERED: Ipratropium/Albuterol Neb 3 ML IH PRN (09:18)
[2021-12-31] MEDS: *HR* Dextrose 50 % in Water (Syg) 50 ML SYRINGE IVP PRN (23:30)
[2021-12-31] MEDS: D5% in Water 1,000 ML IVC PRN (23:48)
[2022-01-01] MEDS ORDERED: Desitin (Zinc Oxide) 56 GM TUBE TP PRN (02:18)
[2022-01-01] MEDS: Insulin LISPRO 300 UNITS/3 ML VIAL SUBQ SCH ×4 (03:25→21:48)
[2022-01-01] MEDS: *HR* Metoprolol 5 MG/5 ML VIAL IVP SCH ×4 (03:25→21:38)
[2022-01-01 04:37] LABS: Basophils % 0.5 %
[2022-01-01 04:38] LABS: Basophils # 0.1 K/mcL (0.0-0.2); Eosinophils % 2.1 %; Hematocrit 43.7 % (35.3-44.9); Hemoglobin 12.7 g/dL (11.5-15.4); Immature Granulocytes % 0.4 % (0-4); Immature Platelets 3.4 % (1.1-6.1); Mean Corpuscular HGB Conc 29.1 g/dL (31.6-35.5); Mean Corpuscular Hemoglobin 21.6 pg (28.0-33.3); Mean Corpuscular Volume 74.2 fL (83.0-100.0); Monocytes % 7.6 %; Platelet Count 291 K/mcL (140-400); Red Blood Count 5.89 M/mcL (3.82-4.97); Red Cell Distribution Width 27.6 % (11.5-14.5); Segmented Neutrophils % 84.4 %; White Blood Count 13.4 K/mcL (4.3-11.1)
[2022-01-01 04:39] LABS: Eosinophils # 0.3 K/mcL (0.0-0.6); Lymphocytes # 0.7 K/mcL (0.6-4.6); Neutrophils # 11.3 K/mcL (1.6-8.9)
[2022-01-01 04:40] LABS: VBG Ionized Calcium 1.28 mmol/L (1.15-1.35)
[2022-01-01 04:51] LABS: BUN/Creatinine Ratio 57 (6-26); Blood Urea Nitrogen 34 mg/dL (6-20); Carbon Dioxide 31 mEq/L (23-29); Chloride 103 mEq/L (98-107); Glucose 86 mg/dL (70-105); Magnesium 2.3 mg/dL (1.6-2.6); Osmolality,Calculated 287 (280-300); Phosphorous 4.2 mg/dL (2.7-4.5); Potassium 4.9 mEq/L (3.5-5.1); Sodium 135 mEq/L (136-145); eGFR For African Americans > 60 (> 60); eGFR For Non-African Americans > 60 (> 60)
[2022-01-01] MEDS: *HR* Heparin 5,000 UNIT/ML VIAL SQ SCH ×3 (05:10→21:39)
[2022-01-01] MEDS: Budesonide/Formoterol 160/4.5 1 PUFF INH IH SCH ×2 (07:44→19:44)
[2022-01-01] MEDS: Pantoprazole 40 MG VIAL IVP SCH (08:43)
[2022-01-01] MEDS: Thiamine (B-1) 100 MG in 0.9 % Sodium Chloride 50 ML IVPB SCH ×4 (08:46→21:36)
[2022-01-01] MEDS: D5% in Water 1,000 ML IVC PRN ×2 (10:00→21:37)
[2022-01-01] MEDS ORDERED: *HR* Promethazine 25 MG/ML VIAL IM PRN (15:47)
[2022-01-01] MEDS ORDERED: *HR* Metoprolol 5 MG/5 ML VIAL IVP SCH (22:00)
[2022-01-02] MEDS: *HR* Metoprolol 5 MG/5 ML VIAL IVP SCH ×4 (03:31→20:10)
[2022-01-02 05:32] LABS: Immature Granulocytes % 0.8 % (0-4)
[2022-01-02 05:34] LABS: Basophils # 0.1 K/mcL (0.0-0.2); Basophils % 0.7 %; Eosinophils # 0.3 K/mcL (0.0-0.6); Eosinophils % 2.4 %; Hematocrit 41.6 % (35.3-44.9); Hemoglobin 11.7 g/dL (11.5-15.4); Immature Platelets 3.8 % (1.1-6.1); Lymphocytes # 0.7 K/mcL (0.6-4.6); Lymphocytes % 6.7 %; Mean Corpuscular HGB Conc 28.1 g/dL (31.6-35.5); Mean Corpuscular Hemoglobin 21.1 pg (28.0-33.3); Platelet Count 284 K/mcL (140-400); Red Blood Count 5.55 M/mcL (3.82-4.97); Segmented Neutrophils % 80.4 %; White Blood Count 10.6 K/mcL (4.3-11.1)
[2022-01-02 05:35] LABS: VBG Ionized Calcium 1.27 mmol/L (1.15-1.35)
[2022-01-02 05:39] LABS: Neutrophils # 8.5 K/mcL (1.6-8.9)
[2022-01-02 05:57] LABS: BUN/Creatinine Ratio 43 (6-26); Blood Urea Nitrogen 29 mg/dL (6-20); Carbon Dioxide 27 mEq/L (23-29); Chloride 100 mEq/L (98-107); Glucose 221 mg/dL (70-105); Magnesium 2.1 mg/dL (1.6-2.6); Osmolality,Calculated 287 (280-300); Phosphorous 3.8 mg/dL (2.7-4.5); Potassium 4.9 mEq/L (3.5-5.1); Sodium 132 mEq/L (136-145); eGFR For African Americans > 60 (> 60); eGFR For Non-African Americans > 60 (> 60)
[2022-01-02 06:00] LABS: Anisocytosis 2+ (Not Present); Hypochromasia Present (Not Present); Platelet Estimate Normal (Normal)
[2022-01-02] MEDS: *HR* Heparin 5,000 UNIT/ML VIAL SQ SCH ×3 (06:13→21:52)
[2022-01-02] MEDS: Budesonide/Formoterol 160/4.5 1 PUFF INH IH SCH ×2 (07:15→19:56)
[2022-01-02] MEDS: Pantoprazole 40 MG VIAL IVP SCH (08:08)
[2022-01-02] MEDS: Insulin LISPRO 300 UNITS/3 ML VIAL SUBQ SCH ×5 (08:08→20:22)
[2022-01-02] MEDS: Thiamine (B-1) 100 MG in 0.9 % Sodium Chloride 50 ML IVPB SCH ×3 (08:09→22:43)
[2022-01-02] MEDS: D5% in Water 1,000 ML IVC PRN (12:13)
[2022-01-03] MEDS: *HR* Dextrose 50 % in Water (Syg) 50 ML SYRINGE IVP PRN (00:47)
[2022-01-03] MEDS: D5% in Water 1,000 ML IVC PRN ×2 (00:52→11:59)
[2022-01-03] MEDS: *HR* Metoprolol 5 MG/5 ML VIAL IVP SCH ×4 (02:35→21:01)
[2022-01-03] MEDS: *HR* Heparin 5,000 UNIT/ML VIAL SQ SCH ×3 (05:01→21:01)
[2022-01-03] MEDS: Budesonide/Formoterol 160/4.5 1 PUFF INH IH SCH ×2 (07:31→20:09)
[2022-01-03] MEDS: Pantoprazole 40 MG VIAL IVP SCH (07:37)
[2022-01-03] MEDS: Thiamine (B-1) 100 MG in 0.9 % Sodium Chloride 50 ML IVPB SCH ×3 (07:37→21:00)
[2022-01-03] MEDS: Insulin LISPRO 300 UNITS/3 ML VIAL SUBQ SCH ×3 (11:57→21:02)
[2022-01-03 16:36] LABS: Basophils % 0.6 %; Hemoglobin 11.3 g/dL (11.5-15.4); Immature Granulocytes % 0.6 % (0-4); Mean Platelet Volume 9.6 fL (9.4-12.4)
[2022-01-03 16:38] LABS: Basophils # 0.1 K/mcL (0.0-0.2); Eosinophils # 0.2 K/mcL (0.0-0.6); Eosinophils % 1.6 %; Hematocrit 38.3 % (35.3-44.9); Immature Platelets 3.7 % (1.1-6.1); Lymphocytes # 0.4 K/mcL (0.6-4.6); Lymphocytes % 3.9 %; Mean Corpuscular HGB Conc 29.5 g/dL (31.6-35.5); Mean Corpuscular Hemoglobin 22.2 pg (28.0-33.3); Mean Corpuscular Volume 75.1 fL (83.0-100.0); Monocytes # 0.9 K/mcL (0.0-1.3); Monocytes % 8.2 %; Neutrophils # 9.2 K/mcL (1.6-8.9); Platelet Count 324 K/mcL (140-400); Red Cell Distribution Width 26.3 % (11.5-14.5); Segmented Neutrophils % 85.1 %; White Blood Count 10.8 K/mcL (4.3-11.1)
[2022-01-03 17:01] LABS: Alanine Aminotransferase 11 Units/L (7-52); Albumin 2.8 g/dL (3.5-5.7); Albumin/Globulin Ratio 1.2 (1.1-2.2); Alkaline Phosphatase 66 Units/L (34-104); Aspartate Amino Transferase 16 Units/L (13-39); BUN/Creatinine Ratio 37 (6-26); Bilirubin,Total 0.4 mg/dL (0.3-1.0); Blood Urea Nitrogen 25 mg/dL (6-20); Calcium 9.1 mg/dL (8.6-10.3); Carbon Dioxide 29 mEq/L (23-29); Chloride 100 mEq/L (98-107); Globulin 2.4 g/dL (2.4-3.5); Glucose 114 mg/dL (70-105); Osmolality,Calculated 281 (280-300); Potassium 4.5 mEq/L (3.5-5.1); Sodium 133 mEq/L (136-145); Total Protein 5.2 g/dL (6.4-8.9); eGFR For African Americans > 60 (> 60); eGFR For Non-African Americans > 60 (> 60)
[2022-01-03 17:06] LABS: Anisocytosis 2+ (Not Present); Hypochromasia Present (Not Present); Microcytosis Present (Not Present); Platelet Estimate Normal (Normal)
[2022-01-04] MEDS: *HR* Metoprolol 5 MG/5 ML VIAL IVP SCH ×4 (01:30→21:26)
[2022-01-04] MEDS: *HR* Heparin 5,000 UNIT/ML VIAL SQ SCH ×3 (05:01→21:26)
[2022-01-04] MEDS: Budesonide/Formoterol 160/4.5 1 PUFF INH IH SCH ×2 (07:22→20:21)
[2022-01-04] MEDS: Insulin LISPRO 300 UNITS/3 ML VIAL SUBQ SCH ×4 (08:04→21:29)
[2022-01-04] MEDS: Pantoprazole 40 MG VIAL IVP SCH (08:12)
[2022-01-04] MEDS ORDERED: Perflutren Lipid Microsphere 1.3 ML in 0.9 % Sodium Chloride 8.7 ML IVP PRN (08:21)
[2022-01-04] MEDS: Piperacillin/Tazobactam 3.375 GM in 0.9 % Sodium Chloride Mini Bag 100 ML IVPB SCH ×2 (08:55→17:55)
[2022-01-04] MEDS: Furosemide 20 MG/2 ML VIAL IVP SCH (08:56)
[2022-01-04] MEDS: Thiamine (B-1) 100 MG in 0.9 % Sodium Chloride 50 ML IVPB SCH ×3 (09:33→21:21)
[2022-01-05] MEDS: Piperacillin/Tazobactam 3.375 GM in 0.9 % Sodium Chloride Mini Bag 100 ML IVPB SCH ×2 (02:06→11:40)
[2022-01-05] MEDS: *HR* Metoprolol 5 MG/5 ML VIAL IVP SCH ×2 (02:07→08:09)
[2022-01-05] MEDS: *HR* Heparin 5,000 UNIT/ML VIAL SQ SCH (05:54)
[2022-01-05] MEDS: Budesonide/Formoterol 160/4.5 1 PUFF INH IH SCH (07:27)
[2022-01-05] MEDS: Pantoprazole 40 MG VIAL IVP SCH (08:08)
[2022-01-05] MEDS: Insulin LISPRO 300 UNITS/3 ML VIAL SUBQ SCH ×4 (08:08→21:52)
[2022-01-05] MEDS: Furosemide 20 MG/2 ML VIAL IVP SCH (08:08)
[2022-01-05] MEDS: Thiamine (B-1) 100 MG in 0.9 % Sodium Chloride 50 ML IVPB SCH ×3 (08:24→21:51)
[2022-01-05] MEDS: Morphine Sulfate 2 MG/ML SYRINGE IVP PRN ×2 (19:47→22:31)
[2022-01-05] MEDS: *HR* LORazepam 2 MG/ML VIAL IVP PRN ×2 (19:47→22:30)
[2022-01-05 19:59] VITALS: BP 145/70; PULSE 85; TEMP 97.7; O2SAT 97
[2022-01-06] MEDS: *HR* LORazepam 2 MG/ML VIAL IVP PRN (00:58)
[2022-01-06] MEDS: Morphine Sulfate 2 MG/ML SYRINGE IVP PRN (00:59)
== END 2022-01-06 01:25 | disposition expired | DRG 870 ==
LOC: EMEROOARM 11:05 → ICNU 23:12 → SUATTDRO 23:12 → ICNU 23:43 → 2NENU 01-01 12:54
PROVIDERS: ADMIT Student in an Organized Health Care Education/Training Program; ATTEND Internal Medicine